=== PATIENT | male | born 1945 | race Caucasian/White ===

== ENCOUNTER 2022-11-10 11:28 | Outpatient (OUT) | payer MEDICARE, SELFPAY ==
[2022-11-10 12:06] LABS: Basophils Absolute Auto 0.1 10^3/uL (0.0-0.1); Basophils Percent Auto 1.1 % (0.2-2.0); Eosinophils Absolute Auto 0.4 10^3/uL (0.0-0.7); Eosinophils Percent Auto 3.4 % (0.9-7.0); Hematocrit 43.6 % (42.0-54.0); Hemoglobin 14.9 g/dL (14.0-18.0); Immature Granulocytes Abs Auto 0.08 10^3/uL (0.00-0.03); Immature Granulocytes Pct Auto 0.7 % (0.0-0.5); Lymphocytes Absolute Auto 1.9 10^3/uL (1.2-3.8); Lymphocytes Percent Auto 16.5 % (20.5-60.0); Mean Corpuscular HGB Conc 34.2 g/dL (29.9-35.2); Mean Corpuscular Hemoglobin 28.5 pg (25.9-34.0); Mean Corpuscular Volume 83.4 fL (80.0-94.0); Mean Platelet Volume 10.4 fL (9.5-13.5); Monocytes Absolute Auto 0.8 10^3/uL (0.3-0.8); Monocytes Percent Auto 6.5 % (1.7-12.0); Neutrophils Absolute Auto 8.5 10^3/uL (1.4-6.5); Neutrophils Percent Auto 71.8 % (43.0-75.0); Platelet Count 353 10^3/uL (150-450); Red Blood Count 5.23 10^6/uL (4.70-6.10); Red Cell Distribution Width 12.8 % (11.0-15.0); White Blood Count 11.8 10^3/uL (4.0-11.0)
[2022-11-10 12:14] LABS: Bacteria Urine NONE SEEN #/HPF (NONE SEEN); Mucus Urine NONE SEEN (NONE SEEN); RBC Urine NONE SEEN #/HPF (0-2); Squamous Epithelial Cell Urine FEW #/LPF (NONE/RARE); WBC Urine NONE SEEN #/HPF (NONE SEEN)
[2022-11-10 12:19] LABS: Creatinine Urine Random 107.97 mg/dL (20.00-300.00); Protein Creatinine Ratio Urine 0.47; Total Protein Urine Random 50.8 mg/dL (<=11.9)
[2022-11-10 12:33] LABS: Albumin Level 3.9 g/dL (3.4-5.0); Anion Gap 17.1; BUN Creatinine Ratio 15.6; Calcium 8.5 mg/dL (8.5-10.1); Chloride 99 mmol/L (98-107); Estimated GFR (African America 37 (>=60); Estimated GFR (Non-African Ame 30 (>=60); Glucose 179 mg/dL (74-106); Magnesium 1.9 mg/dL (1.8-2.4); Phosphorus 3.5 mg/dL (2.6-4.7); Potassium 4.1 mmol/L (3.5-5.1); Sodium 135 mmol/L (136-145); Uric Acid 6.2 mg/dL (3.5-7.2)
[2022-11-11 07:11] LABS: Vitamin D, 25-Hydroxy 22.1 ng/mL (30.0-100.0)
[2022-11-11 12:08] LABS: PTH, Intact 46 pg/mL (15-65)
== END 2022-11-10 11:29 | disposition home or self-care (01) ==
PROVIDERS: PCP Nurse Practitioner Family; Visit Provider Internal Medicine
DX: I12.9 Hypertensive chronic kidney disease with stage 1 through stage 4 chronic kidney disease, or unspecified chronic kidney disease (principal); N18.4 Chronic kidney disease, stage 4 (severe); E11.22 Type 2 diabetes mellitus with diabetic chronic kidney disease; N25.81 Secondary hyperparathyroidism of renal origin; E78.5 Hyperlipidemia, unspecified; N28.89 Other specified disorders of kidney and ureter
CPT/HCPCS: 36415; 80069; 81015; 82306; 82570; 83735; 83970; 84156; 84550; 85025

== ENCOUNTER 2022-12-29 09:00 | Outpatient (OUT) | payer MEDICARE, SELFPAY ==
[2022-12-29 08:29] LABS: Estimated GFR (African America 33 (>=60); Estimated GFR (Non-African Ame 27 (>=60)
== END 2022-12-29 12:00 | disposition home or self-care (01) ==
LOC: MRI 01-12 15:14
PROVIDERS: PCP Nurse Practitioner Family; Visit Provider Urology
DX: N28.89 Other specified disorders of kidney and ureter (principal); N40.0 Benign prostatic hyperplasia without lower urinary tract symptoms
CPT/HCPCS: 36415; 82565

== ENCOUNTER 2023-01-03 12:08 | Outpatient (OUT) | payer MEDICARE, SELFPAY ==
[2023-01-03 14:42] LABS: Prostate Specific Antigen Dx 3.09 ng/mL (<=4.00)
== END 2023-01-03 12:09 | disposition home or self-care (01) ==
LOC: LAB 12:10
PROVIDERS: PCP Nurse Practitioner Family; Visit Provider Urology
DX: N40.0 Benign prostatic hyperplasia without lower urinary tract symptoms (principal)
CPT/HCPCS: 36415; 84153

== ENCOUNTER 2023-01-04 07:40 | Outpatient (OUT) | payer MEDICARE, SELFPAY ==
--- NOTE | 2023-01-04 07:44 | CT_ITS ---
[address] [address] Patient Name: STONEY ALVES MRN: [id number] date: 1945 Sex: M Assigned Patient Location: CT Current Patient Location: CT Accession/Order Number: [id number] Exam Date: 01/04/2023 08:31 Report Date: 01/04/2023 10:52 At the request of: UVALDO WINN Procedure: CT abdomen pelvis wo con EXAMINATION: CT abdomen pelvis wo con HISTORY: Renal Mass N28.89 COMPARISON: No relevant comparison available. TECHNIQUE: Axial, Coronal, and Sagittal images were obtained without and/or with IV contrast as indicated by examination type. Dose reduction techniques were achieved by using automated exposure control and/or adjustment of mA and/or kV according to patient size and/or use of iterative reconstruction technique. FINDINGS: LUNG BASES: Numerous peripherally located blebs and bulla; possibly fibrosis. LIVER: Several slightly rounded hypodensities within the liver simple nonspecific but favoring cysts or hemangiomas. BILIARY: No dilatation or calcification. PANCREAS: No lesion, fluid collection, or abnormal duct dilatation. SPLEEN: No enlargement or focal lesion. ADRENALS: No mass or enlargement. KIDNEYS: 4.9 cm round mass versus complex cyst projecting cephalad from superior pole of right kidney. 1.0 cm 0.6 cm cyst versus mass projecting from mid and inferior aspect of kidney. Left kidney contains a 1.9 cm cyst. BOWEL/MESENTERY: Numerous diverticula involving the sigmoid and distal descending colon; no inflammatory changes. No visible mass, obstruction, or bowel wall thickening. AORTA/VASCULAR: No aneurysm or dissection. RETROPERITONEUM: No mass or adenopathy. LYMPH NODES: No adenopathy. URINARY BLADDER: Mild superficial wall thickening, likely muscular hypertrophy. PELVIC ORGANS: No visible mass. Pelvic organs appropriate for patient age. ABDOMINAL WALL: No mass or hernia. BONES: Multilevel marked degenerative disc disease of lumbar spine. OTHER: Negative. CT/CT abdomen pelvis wo con IMPRESSION: 1.Nonspecific 4.9 cm right renal mass versus complex cyst. Lack of IV contrast on today's study limits evaluation (patient had elevated creatinine level).The most recent study demonstrating this area is a CT Thorax from 06/16/2013, which demonstrates normal appearance of the superior pole of the right kidney. If patient's creatinine level can be returned to normal a CT abdomen without and with IV contrast would be beneficial for further evaluation. If the patient is unable to receive IV contrast then consider MRI of the kidneys without contrast for further evaluation. 2. Additional chronic changes detailed above. Electronically authenticated by: TOLU MILIAN Date: 01/04/2023 10:52
== END 2023-01-04 07:41 | disposition home or self-care (01) ==
LOC: CT 07:40
PROVIDERS: PCP Nurse Practitioner Family; Visit Provider Urology
DX: N28.89 Other specified disorders of kidney and ureter (principal)
CPT/HCPCS: 74176

== ENCOUNTER 2023-01-15 13:37 | Outpatient (OUT) | payer MEDICARE, SELFPAY ==
--- NOTE | 2023-01-15 13:40 | MR_ITS ---
The [address] [address] Patient Name: STONEY ALVES MRN: [id number] date: 1945 Sex: M Assigned Patient Location: MRI Current Patient Location: MRI Accession/Order Number: [id number] Exam Date: 01/15/2023 13:53 Report Date: 01/16/2023 16:50 At the request of: UVALDO WINN Procedure: MR abdomen wo con EXAM: MR abdomen wo con 01/15/2023 COMPARISON STUDY: CT of the abdomen and pelvis without contrast 01/04/2023. CT of the chest 06/16/2013. TECHNIQUE: Coronal T2, axial T1 in and out of phase, axial T2 with and without fat saturation images of the abdomen were obtained. Axial T1 fat-saturated images were obtained. Intravenous contrast was not utilized due to renal insufficiency. HISTORY: Right Renal Mass N28.89 FINDINGS: On the large [id number] T2-weighted images there is incidental note of colonic diverticular disease. Interval development of a mixed T1/mixed T2 signal partially exophytic mass at the upper pole of the right kidney when compared to study from 2013. This measures 4.6 x 4.2 x 4.6 cm. Gallbladder, pancreas, and spleen appear unremarkable as do the adrenal glands. Mild background global atrophic changes of the kidneys from chronic medical renal disease suspected. Bilateral renal cysts are present. Exophytic cyst off the lateral cortex midpole level right kidney for example measures 12 mm. On the same image is an intracortical cyst within the posterior cortex measuring 8 mm. An inferior pole cyst laterally for example measures 8 mm. Hemorrhagic/proteinaceous cyst at the upper pole of the left kidney within the posterior cortex, image 5, series 9 measures 7 mm similar to that seen on prior exam. Multiple midpole cysts are also identified. Dominant midpole cyst posteriorly for example measures 2.1 cm. Inferior pole cyst laterally measures 5 mm. Multiple high T2 signal hepatic cysts are also identified. Subcapsular right hepatic cyst involving the posterior segment seen laterally for example measures 2.0 x 2.0 cm. On the same image is a lobulated right hepatic cyst within the anterior segment measuring 1.8 x 1.8 cm. On the same image is a cyst within the lateral segment left hepatic lobe measuring 13 mm. A medially located subcapsular cyst within the posterior segment right hepatic lobe is also identified more caudally measuring 1.2 x 2.3 cm. MR/MR abdomen wo con IMPRESSION: 1. Mild chronic background global atrophic changes of the kidneys without hydronephrosis. 2. 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 3. Benign-appearing hepatic and bilateral renal cysts. Subcentimeter hemorrhagic/proteinaceous upper pole left renal cyst again noted. 4. Colonic diverticular disease noted incidentally. Electronically authenticated by: KARLA TORRES Date: 01/16/2023 16:50
== END 2023-01-15 13:38 | disposition home or self-care (01) ==
LOC: MRI 13:37
PROVIDERS: PCP Nurse Practitioner Family; Visit Provider Urology
DX: N28.89 Other specified disorders of kidney and ureter (principal)
CPT/HCPCS: 74181

== ENCOUNTER 2024-01-09 13:32 | Emergency (ER) | payer MEDICARE, SELFPAY ==
[2024-01-09 13:48] VITALS: BP 156/77; PULSE 68; TEMP 36.6; O2SAT 99
--- NOTE | 2024-01-09 14:21 | ED.GENADUL1 ---
HPI HPI - General Adult General Chief complaint: Extremity Injury, Upper Stated complaint: UPPER RIGHT EXTREMITY IRRITATION/PAIN Time Seen by Provider: 01/09/24 13:40 Source: patient Mode of arrival: walk-in Limitations: no limitations History of Present Illness HPI narrative: Patient presents to ED complaining of right arm injury. He was lifting a couch over the weekend and he felt a pop in his right bicep area. He said some bruising around the bicep area and mild tenderness. He thinks he may be tore something. No other injury. 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 He does not have an orthopedic doctor to follow with at this time. He does see Dr. Lyons but came to the emergency room for evaluation. Related Data Allergies Allergy/AdvReac Type Severity Reaction Status Date / Time No Known Drug Allergies Allergy Verified 01/09/24 13:54 Opioid HPI Opioid Management Most Recent Opioid Data: No Data to Display Review of Systems ROS Status of ROS 10 or more systems reviewed and unremarkable except as noted in history and below PFSH PFSH Social History Little interest or pleasure in doing things: not at all Feeling down, depressed, or hopeless: not at all Exam Narrative Exam Narrative: General: alert, no acute distress Cardiovascular: regular rate and rhythm, normal peripheral perfusion. Respiratory: Lungs CTA, respirations non labored. Extremities: Ecchymosis in the biceps area on the right upper extremity. 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 Patient is able to flex and extend at the elbow Neurological: oriented x 4, LOC appropriate for age. Constitutional Vital Signs, click to edit/add: Last Vital Signs Temp 97.9 F 01/09/24 13:48 Pulse 68 01/09/24 13:48 Resp 18 01/09/24 13:48 BP 156/77 H 01/09/24 13:48 Pulse Ox 99 01/09/24 13:48 O2 Del Method Room Air 01/09/24 13:48 Course Vital Signs Vital signs: Vital Signs Temperature 97.9 F 01/09/24 13:48 Pulse Rate 68 01/09/24 13:48 Respiratory Rate 18 01/09/24 13:48 Blood Pressure 156/77 H 01/09/24 13:48 Pulse Oximetry 99 01/09/24 13:48 Oxygen Delivery Method Room Air 01/09/24 13:48 Temperature 97.9 F 01/09/24 13:48 Pulse Rate 68 01/09/24 13:48 Respiratory Rate 18 01/09/24 13:48 Blood Pressure 156/77 H 01/09/24 13:48 Pulse Oximetry 99 01/09/24 13:48 Oxygen Delivery Method Room Air 01/09/24 13:48 Medical Decision Making MDM Narrative Medical decision making narrative: Patient will be referred to Dr. Reis, he will be seen at 1230 on Sunday the . Rest the arm until then take Tylenol Motrin for pain. Return to ED if worsening symptoms otherwise follow-up with Ortho Differential Diagnosis Differential Diagnosis: Bicep strain, tendon rupture, bicep tear Discharge Plan Discharge Chief Complaint: Extremity Injury, Upper Clinical Impression: Biceps muscle tear Patient Disposition: Home, Self-Care Time of Disposition Decision: 14:04 Condition: Good Mode of Transportation: Private Vehicle Print Language: Polish Instructions: Tendon Rupture (ED) Referrals: FRANCISCO SAWANT [Primary Care Provider] - 1 week Valentino Reis MD [Physician] - 01/14/24 12:30 pm
== END 2024-01-09 14:21 | disposition home or self-care (01) ==
PROVIDERS: Emergency Provider Emergency Medicine; PCP Nurse Practitioner Family
DX: S46.211A Strain of muscle, fascia and tendon of other parts of biceps, right arm, initial encounter (principal); X50.0XXA Overexertion from strenuous movement or load, initial encounter
CPT/HCPCS: 99281

== ENCOUNTER 2024-02-28 09:20 | Outpatient (OUT) | payer MEDICARE, SELFPAY ==
--- NOTE | 2024-02-28 09:29 | US_ITS ---
The [address] [address] Patient Name: STONEY ALVES MRN: [id number] date: 1945 Sex: M Assigned Patient Location: US Current Patient Location: Accession/Order Number: [id number] Exam Date: 02/28/2024 10:09 Report Date: 02/29/2024 06:41 At the request of: NON-STAFF PHYSICIAN Procedure: US renal bladder EXAMINATION: US renal bladder HISTORY: Right Renal Mass COMPARISON: CT abdomen pelvis 01/04/2023 TECHNIQUE: Ultrasound examination was performed of the kidneys and urinary bladder. FINDINGS: RIGHT KIDNEY: Superior pole 3.7 x 4.1 x 3.9 cm mass. No appreciable internal blood flow on color Doppler. Mild cortical thinning, 1.3 cm in thickness. Color Doppler demonstrates blood flow within the kidney. Kidney: 10.8 x 5.7 x 5.5 cm LEFT KIDNEY: Several simple appearing cysts, largest is 1.6 cm. Mild cortical thinning, 1.1 cm. Color Doppler demonstrates blood flow within the kidney. Kidney: 9.5 x 6.0 x 6.0 cm BLADDER: Prominent prostate protruding into base of bladder. No visible wall thickening, mass, or calculi. Post void residual: 148 mL URETERAL JETS: Visualized bilaterally. US/US renal bladder IMPRESSION: 1. Within superior pole right kidney is a 4.1 cm mass, also seen on prior CT and MRI of the abdomen. While there is no significant/detectable blood flow within the mass on today's study, its appearance is still most suggestive of renal cell carcinoma. 2. Post void residual urine within bladder: 148 mL. Electronically authenticated by: TOLU MILIAN Date: 02/29/2024 06:41
--- OUTSIDE RECORDS SUMMARY | 2024-02-28 09:44 | XMS_ITS | CCD ---
Author Organization [facility] Care Team Providers Care Claim Rep Name Role Phone Dulce Maria Del Castillo Primary Care Provider DULCE MARIA DEL CASTILLO Primary Care Unavailable MEMO BROWN Referring Unavailabl e KIP GIL Attending Unavailable DULCE MARIA DEL CASTILLO Primary Care Unavailable GUANAKITO BAUM Consulting Unavailable JEFFERYMARGE TOLEDOKIP Admitting Unavailable RAMYA NAVARRO Consulting Unavailable VINCE VAZQUEZ Consulting Unavailable Zeferino Wilkerson Jr. Unavailable Darby Zurita Unavailable Joslyn Keating Unavailable Marcy Floyd Unavailable FRANCISCO SAWANT Admitting Unavailable [facility] Primary Care Unava ilable FRANCISCO SAWANT Attending Unavailable Shashank Tejeda Unavailable FRANCISCO SAWANT Primary Care Physician [phone] Christophe WINN Attending Unavailable Christophe WINN Attending Unavailable SHASHANK TEJEDA Referring Unavailable Christophe WINN Attending Unavailable Unavailable Primary Care Provider UnavailMD Moris Lopez Primary Care Provider MD Moris Oro Attending Provider Moris Oro Attending Unavailable Moris Oro Admitting Unavailable Moris Oro Primary Care Unavailable Moris Oro Primary Care Unavailable Kitty Ledbetter Admitting Unavailable Kitty Ledbetter Attending Unavailable MD Moris Oro Primary Care Provider MD Moris Oro Attending Provider [phone] Unavailable Primary Care Provider Unavailabl john WEIGHT CHRISTOPHER Referring Unavailable WEIGHT, CHRISTOPHER Attending Unavailable COPJOSE DANIEL CRUZ P Referring Unavailable WEIGHT, JOSE DANIEL Referring Unavailable WEIGHT, JOSE DANIEL Attending Unavailable GETACHEW CHURCHILL S Attending Unavailable GETACHEW CHURCHILL S Admitting Unavailable WEIGHT, JOSE DANIEL Attending Unavailable WEIGHT, JOSE DANIEL Referring Unavailable Allergies Allergy Classification Reported Allergen(s) Allergy Type Date of Onset Reaction(s) Facility (1 source) No Known Medication Allergies; Translations: [No Known Medication Allergies] Propensity to adverse reactions (disorder) [facility] Repository Medications Current Medications Medication Drug Class(es) Dates Sig (Normalized) Sig (Original) 3 ML semaglutide 1.34 MG/ML Pen Injector [Ozempic] (20 sources) Start: 04-29-2021 Ozempic (1 MG/DOSE) 4 MG/3ML as directed Subcutaneous Patient assisteance through [facility]-- prepared today Apr, Active Ozempic (1 MG/DO SE) 4 MG/3ML as directed Subcutaneous Patient assisteance through [facility]-- prepared today Active Acetaminophen (2 sources) Start: 04-24-2020 acetaminophen (TYLENOL) tablet 650 mg Acetaminophen (T YLENOL) 325 MG CAPS Take by mouth as needed 0 Active 120 actuat albuterol 0.1 mg/actuat / ipratropium bromide 0.02 mg/actuat metered dose inhaler (2 sources) Anticholinergic, beta2-Adrenergic Agonist Start: 05-05-2020 take 20-100 ug by inhalation four times daily albuterol-ipratropium (COMBIVENT RESPIMAT) 20-100 MCG/ACT AERS inhaler Inhale 1 puff into the lungs 4 times daily 1 Inhaler 2 05/05/2020 Active albuterol sulfate HFA 108 (90 Base) MCG/ACT inhaler 2 puff (1 source) Start: 04-24-2020 albuterol sulfate HFA 108 (90 Base) MCG/ACT inhaler 2 puff albuterol sulfate HFA 108 (90 Base) MCG/ACT inhaler 2 puff (1 source) Start: 04-24-2020 albuterol sulfate HFA 108 (90 Base) MCG/ACT inhaler 2 puff amLODIPine 10 mg oral tablet (20 sources) Dihydropyridine Calcium Channel Марина Start: 06-25-2023 End: 06-24-2024 take 10 mg by mouth once daily Amlodipine Active 10 MG PO Daily October 15, 2023 10:58am Start: 05-11-2020 take 1 tablet by christopher th once daily amLODIPine (NORVASC) 5 MG tablet Take 1 tablet by mouth daily 90 tablet 3 05/11/2020 Active Start: 04-24-2020 take 10 mg by mouth once daily 10 mg, Oral, DAILY, First dose on 04/24/20 at 0900 Comment on above: 1 tablet Orally Chidi y for 30 days aspirin 81 mg chewable tablet (20 sources) Platelet Aggregation Inhibitor, Nonsteroidal Anti-inflammatory Drug Start: 04-25-2020 take 81 mg by mouth once daily 81 mg, Oral, DAILY, First dose on 04/25/20 at 0900 Aspirin 81 81 MG 1 tablet Orally Three days a week Not-Taking atenolol 50 mg oral tablet (1 source) beta-Adrenergic Марина Start: 04-25-2020 atenolol (TENORMIN) tablet 50 mg atorvastatin 10 mg oral tablet (20 sources) HMG-CoA Reductase Inhibitor Start: 10-15-2023 take 10 mg by mouth once daily Atorvastatin Active 10 MG PO Daily October 15, 2023 12:00am Start: 04-24-2020 take 10 mg by mouth once daily 10 mg, Oral, DAILY, First dose on 04/24/20 at 0900 atorvastatin (LI PITOR) 10 mg tablet Take by mouth every 24 hours. Active Comment on above: Take by mouth every 24 hours. benzonatate 200 mg oral capsule (2 sources) Non-narcotic Antitussive Start: End: take 1 capsule by mouth three times daily as needed for cough benzonatate (TESSALON) 200 MG capsule Take 1 capsule by mouth 3 times daily as needed for Cough 21 capsule 2 05/05/2020 05/12/2020 Active Start: 04-24-2020 take 200 mg by mouth three times daily as needed for cough 200 mg, Oral, 3 TIMES DAILY PRN, Cough, Starting 04/24/20 at 0110 60 actuat budesonide 0.16 mg/actuat / formoterol fumarate 0.0045 mg/actuat metered dose inhaler (2 sources) Corticosteroid, beta2-Adrenergic Agonist Start: 05-05-2020 take 2 puff(s) by inhalation twice daily budesonide-formoterol (SYMBICORT) 160-4.5 MCG/ACT AERO Inhale 2 puffs into the lungs 2 times daily 1 Inhaler 3 05/05/2020 Active budesonide-for moterol (SYMBICORT) 160-4.5 MCG/ACT inhaler 2 puff (2 sources) Start: 04-28-2020 budesonide-formoterol (SYMBICORT) 160-4.5 MCG/ACT inhaler 2 puff Start: 04-26-2020 End: 04-28-2020 budesonide-formoterol (SYMBI ESTEBAN) 160-4.5 MCG/ACT inhaler 2 puff cholecalciferol 68429 unt/ml oral solution (1 source) Vitamin D Start: 10-15-2023 cholecalciferol (vitamin D3) Active 17236 UNIT PO .qweekly October 15, 2023 12:00am dexamethasone 4 mg oral tablet (2 sources) Corticosteroid Start: 04-24-2020 take 6 mg by mouth once daily 6 mg, Oral, DAILY, First dose on 04/24/20 at 0900 Start: 04-23-2020 End: 04-23-2020 dexamethasone (PF) (DECADRON ) injection 10 mg 12 hr dextromethorphan polistirex 6 mg/ml extended release suspension (3 sources) Uncompetitive Y-acwhmy-J-aspartate Receptor Antagonist, Sigma-1 Agonist Start: 04-24-2020 End: 05-15-2020 take 10 mL by mouth every twelve hours as needed for cough dextromethorphan (DELSYM) 30 MG/5ML extended release liquid Take 10 mLs by mouth every 12 hours as needed for Cough 90 mL 2 05/05/2020 05/15/2020 Active diphenhydrAMINE hydrochloride 50 mg oral capsule (3 sources) Histamine-1 Receptor Antagonist Start: 06-25-2023 take 1 capsule by mouth once daily at bedtime Diphenhydramine Hcl (Nighttime Sleep Aid (Diphen)) 50 mg capsule Active 50 MG PO Daily at bedtime June 25, 2023 1:00am doxazosin 2 mg oral tablet (20 sources) alpha-Adrenergic Марина Start: 05-11-2020 take 1 tablet by mouth once daily doxazosin (CARDURA) 2 MG tablet Take 1 tablet by mouth nightly 90 tablet 3 05/11/2020 Active doxazosin (CARDU RA) 2 mg tablet Take by mouth every 24 hours. Active Comment on above: Take by mouth every 24 hours. doxepin hydrochloride 10 mg oral capsule (3 sources) Tricyclic Antidepressant Start: 07-09-19 take 10 mg by mouth once daily Doxepin Active 10 MG PO Daily July 09, 2023 12:00am doxylamine succinate 25 mg oral tablet (1 source) take 2 tablets by mouth once daily, then take 1 tablet by mouth doxyLAMINE succinate ([facility] SLEEP-AID, DOXYLAMINE,) 25 MG tablet Take 50 mg by mouth nightly 0 Active Flash Glucose Sensor (Freestyle Destiney 2 Sensor) kit (3 sources) Start: 07-06-19 24 Flash Glucose Sensor (Freestyle Destiney 2 Sensor) kit Active EACH .ROUTE .MEDSUPPLY 1 July 06, 2023 12:00am As directed FreeStyle Destiney 2 [place] - (20 sources) Start: 08-05-19 22 FreeStyle Destiney 2 [place] - Test blood Sugar SQ 5 x day for 365 days Dx E11:65 Jul, Active FreeStyle Destiney 2 [place] - Test blood Sugar SQ 5 x day for 365 days Dx E11:65 Active FreeStyle Destiney 2 Sensor - (20 sources) Start: 08-04-2021 FreeStyle Libr e 2 Sensor - as directed in vitro q 14 days for 84 days DX E11.65 Jul, Active FreeStyle Destiney 2 Sensor - as directed in vitro q 14 days for 84 days DX E11.65 Active FREESTYLE DESTINEY 2 SENSOR kit (9 sources) Start: 01-25-2023 FREESTYLE LIBR E 2 SENSOR kit USE DIRECTED EVERY 14 DAYS 01/25/2023 Active Start: 01-25-2023 FREESTYLE LIBR E 2 SENSOR kit USE DIRECTED EVERY 14 DAYS 0 01/25/2023 Active Comment on above: USE DIRECTED EVER Y 14 DAYS glipiZIDE 10 mg oral tablet (2 sources) Sulfonylurea take 1 tablet by mouth twice daily before mealtime glipiZIDE (GLUCOTROL) 10 MG tablet Take 10 mg by mouth 2 times daily (before meals) 0 Active glucagon (rdna) 1 mg injection (1 source) Antihypoglycemic Agent Start: 04-24-19 take 1 mL intravenous route every hour 1 mg, Intramuscular, PRN, Low blood sugar, Blood glucose less than 70 mg/dL and patient NOT ALERT or NPO and does not have IV access., Starting 04/24/20 at 0110 After administration, attempt intravenous access and start D5W at 100 mL/hr. Repeat blood glucose in 15 minutes x2 and notify provider. glucose 0.417 mg/mg oral gel (3 sources) Start: 04-24-19 15 g, Oral, PRN, Low blood sugar, Starting 04/24/20 at 0110 If blood glucose less than 50 mg/dL and patient ALERT and TOLERATING PO, give 2 tubes glucose gel. If blood glucose less than 70 mg/dL and patient ALERT and TOLERATING PO, give 1 tube glucose gel. Repeat blood glucose in 15 minutes. If blood glucose is less than 70 mg/dL, repeat treatment and recheck blood glucose in 15 minutes x2 and notify provider. Start: 04-24-2020 12.5 g, Intrav enous, PRN, Low blood sugar, Blood glucose less than 70 mg/dL and patient NOT ALERT or NPO., Starting 04/24/20 at 0110 If patient does not respond within 5 minutes, repeat dose x1. Start D5W at 100 mL/hour until ordering provider can be reached. Repeat blood glucose in 15 minutes. If blood glucose is less than 70 mg/dL, repeat treatment and recheck blood glucose in 15 minutes x2. If using Glucostabilizer, dose as instructed per system. Start: 04-24-2020 100 mL/hr, Int ravenous, at 100 mL/hr, PRN, Low blood sugar, Starting 04/24/20 at 0110 Start infusion following administration of dextrose 50% or glucagon. 1 ml heparin sodium, porcine 5000 unt/ml prefilled syringe (1 source) Unfractionated Heparin, Anti-coagulant Start: 04-24-2020 inject 1 dose by subcutaneous injection three times daily 5,000 Units, Subcutaneous, EVERY 8 HOURS SCHEDULED (3 times per day), First dose on 04/24/20 at 0600 1 ml hydrALAZINE hydrochloride 20 mg/ml injection (1 source) Arteriolar Vasodilator Start: 04-27-2020 hydrALAZINE (APRESOLINE) injection 10 mg hydroCHLOROthiazide 12.5 mg oral tablet (4 sources) Thiazide Diuretic Start: 06-25-2023 take 12.5 mg by mouth once daily Hydrochlorothiazide Active 12.5 MG PO Daily June 25, 2023 1:00am End: 05-05-2020 take 1 tablet by mouth every twelve hours hydrochlorothiazide (HYDRODIURIL) 25 MG tablet Take 25 mg by mouth every 12 hours. 0 05/05/2020 Discontinued (Stop Taking at Discharge) Tresiba (20 sources) Insulin Analog Start: 12-18-2022 Tresiba SubCut aneous, Daily, Refills(s) 0 Start Date: 12/18/22 Status: Ordered insulin degludec (TRESIBA FLEXTOUCH U-100) 100 unit/mL (3 mL) injection pen Inject 12 Units subcutaneously. Active inject 3 [IU] by sub cutaneous injection once daily Tresiba FlexTouch 100 UNIT/ML 3 u Subcutaneous daily E11.65--titrate to 20 units. PATIENT ASSIST THROUGH [facility] REDUCE VOLUMES HOPEFUL FOR ELIMINATION Active inject 5 [IU] by sub cutaneous injection once daily Tresiba FlexTouch 100 UNIT/ML 5 u Subcutaneous daily E11.65--titrate to 20 units. PATIENT ASSIST THROUGH [facility] Active inject 12 [IU] by arevalo bcutaneous injection once daily Tresiba FlexTouch 100 UNIT/ML 12 u Subcutaneous daily E11.65--titrate to 20 units. PATIENT ASSIST THROUGH [facility] Active Tresiba FlexTouc h 100 UNIT/ML 11 units, may titrate up to 15 units as needed Subcutaneous daily E11.65-- PATIENT ASSIST THROUGH [facility] Active Comment on above: Inject 12 Units subc utaneously. lisinopril 40 mg oral tablet (20 sources) Angiotensin Converting Enzyme Inhibitor Start: 3 End: 4 take 1 tablet by mouth once lisinopril (ZESTRIL) 40 mg tablet Take 1 tablet by mouth every afternoon. 11/12/2022 Active take 1 tablet by christopher th every twelve hours lisinopril (PRINIVIL;ZESTRIL) 20 MG tabl et Take 20 mg by mouth every 12 hours. 0 Active Comment on above: Take 1 tablet by christopher th every afternoon. magnesium hydroxide 80 mg/ml oral suspension (2 sources) Start: 05-04-2020 magnesium hydroxide (MILK OF MAGNESIA) 400 MG/5ML suspension 30 mL Start: 04-24-2020 End: 05-04-2020 take 30 mL by mouth once daily as needed for constipation 30 mL, Oral, DAILY PRN, Constipation, Starting 04/24/20 at 0110 First line therapy for constipation. 100 ml magnesium sulfate 10 mg/ml injection (1 source) Start: 04-24-2020 take 1 mg intravenous route every hour as needed 1 g, Intravenous, at 100 mL/hr, Administ er over 1 Hours, PRN, Other, Per Magnesium IV Replacement Protocol, Starting 04/24/20 at 0110 Mg Lab Replacement Action 1.4-1.6 1 gram IVPB x 2 doses &nb sp; (2 gram Total) 1.0-1.3 1 gram IVPB x 4 doses &nb sp; (4 gram Total) <1.0 CALL PHYSICIAN and &n bsp; 1 gram IVPB x 4 doses (4 gram Total) Infuse at 1 gram/hr Repeat Mag level next AM Protocol not for use in Patients with CrCl<30ml/min metFORMIN hydrochlor masha 1000 mg oral tablet (1 source) B i g u a n i d e take 1 tablet by mouth twice daily at mealtime metformin (GLUCOPHAGE) 1000 MG tablet Ta ke 1,000 mg by mouth 2 times daily (with meals). 0 Active montelukas t 10 mg oral tablet (20 sources) L e u k o t r i e n e R e c e p t o r A n t a g o n i s t Start: 04-24-2020 End: 10-15-2023 take 1 tablet by mouth once montelukast (SINGULAIR) 10 mg tablet Doni e 1 tablet by mouth every afternoon. 02/01/2023 Active Comment on above: Take 1 tablet by mouth every afternoon. nystatin 813866 unt/ml oral suspension (3 sources) P o l y e n e A n t i f u n g a l Start: 05-05-2020 End: 05-15-2020 take 5 mL by mouth four times daily nystatin (MYCOSTATIN) 155775 UNIT/ML blaise pension Take 5 mLs by mouth 4 times daily for 10 days 200 mL 0 05/05/2020 05/15/2020 Active Start: 05-04-2020 nystatin (MYCO STATIN) 655830 UNIT/ML suspension 500,000 Units omeprazole 40 mg delayed release oral capsule (10 sources) Proton Pump Inhibitor Start: 12-18-2022 omeprazo le (PRILOSEC) 40 mg capsule Take by mouth. 12/18/2022 Active take 1 capsule by mouth once adan ly omeprazole (PRILOSEC) 20 MG delayed release capsule Take 20 mg by mouth daily 0 Active Comment on above: Take by mouth. One Touch Glucometer (20 sources) Start: 06-28-2020 One Touch Glucometer To use with One touch basic strips Daily E11.65 Jun, Active Oxygen (1 source) OXYGEN Inhale in to the lungs 2-4 liters 0 Active ozempic (1 mg/dose) 4 mg/3ml solution pen-injector (5 sources) Ozempic (1 MG/DO SE) 4 MG/3ML as directed Subcutaneous Patient assistance through [facility]-- prepared today Active Ozempic (1 MG/DO SE) 4 MG/3ML as directed Subcutaneous Patient assisteance through [facility]-- prepared today Active Potassium Chloride (1 source) Start: 04-24-2020 potassium chloride (KLOR-CON M) extended release tablet 40 mEq pravastatin sodium 20 mg oral tablet (2 sources) HMG-CoA Reductase Inhibitor take 1 tablet by mouth once daily pravastatin (PRAVACHOL) 20 MG tablet Take 20 mg by mouth daily. 0 Active Promethazine (1 source) Phenothiazine Start: 04-24-2020 promethazine (PHENERGAN) tablet 12.5 mg Ozempic (9 sources) Start: 12-18-2022 Ozempic SubCutaneous, qWeek, Refill(s) 0 Start Date: 12/18/22 Status: Ordered Ozempic (0.25 or 0.5 MG/DOSE) 2 MG/1.5ML 0.5 mg Subcutaneous Once a week Increased dose Active Semaglutide (5 sources) Start: 06-06-2023 inject 1 mg by subcutaneous injection every week Semaglutide (Ozempic) 1 mg/dose (4 mg/3 mL) pen injector Active 1 MG SUBCUT every week 07 20June 06, 2023 1:00am Start: 06-06-2023 inject 1 mg by subcu taneous injection every week Semaglutide (Ozempic) 1 mg/dose (4 mg/3 mL) pen injector Active 1 MG SUBCUT every week 07 20June 06, 2023 12:00am semaglutide (OZEMPIC SUBCUTA NEOUS) (9 sources) semaglutide (OZE MPIC SUBCUTANEOUS) Inject subcutaneously. Active semaglutide (OZE MPIC SUBCUTANEOUS) Inject subcutaneously. 0 Active Comment on above: Inject subcutaneousl y. sennosides, assisted 8.6 mg oral tablet (1 source) Start: 04-28-2020 senna (SENOKOT) tablet 8.6 mg tamsulosin hydrochloride 0.4 mg oral capsule (20 sources) alpha-Adrenergic Марина Start: 01-25-2023 End: 10-15-2023 tamsulosin (FLOMAX) 0.4 mg TAKE 1 CAPSULE BY MOUTH 30 MINUTES AFTER THE SAME MEAL EACH DAY ONCE A DAY 01/25/2023 Active Start: 12-15-2022 tamsulosin 0.4 mg Cap Refills(s) 0 Start Date: 12/15/22 Status: Ordered Start: 04-24-2020 End: 05-05-2020 take 0.4 mg by mouth once daily 0.4 mg, Oral, DAILY, F irst dose on 04/24/20 at 0900 Do not crush or break. Comment on above: TAKE 1 CAPSULE BY MO [facility] 30 MINUTES AFTER THE SAME MEAL EACH DAY ONCE A DAY urea (URE-NA) packet 15 g (1 source) Start: 05-04-2020 End: 05-07-2020 urea (URE-NA) packet 15 g Vitamin D3 (2 sources) Start: 12-18-2022 Vitamin D3 Refills(s) 0 Start Date: 12/18/22 Status: Ordered zolpidem tartrate 5 mg oral tablet (1 source) gamma-Aminobutyric Acid-ergic Agonist Start: 04-25-2020 zolpidem (AMBIEN) tablet 5 mg Completed/Discontinued Medications Medication Drug Class(es) Dates Sig (Normalized) Sig (Original) azithromycin (ZITHROMAX) 500 mg in D5W 250ml addavial (1 source) Start: 04-23-2020 End: 04-24-2020 azithromycin (ZITHROMAX) 500 mg in D5W 250ml addavial calcium chloride 0.0014 meq/ml / potassium chloride 0.004 meq/ml / sodium chloride 0.103 meq/ml / sodium lactate 0.028 meq/ml injectable solution (1 source) Start: 04-24-2020 End: 04-24-2020 lactated ringers infusion cefTRIAXone (ROCEPHIN) 1 g IVPB in 50 mL D5W minibag (2 sources) Start: 04-26-2020 End: 04-28-2020 cefTRIAXone (ROCEPHIN) 1 g IVPB in 50 mL D5W minibag Start: 04-23-2020 End: 04-24-2020 cefTRIAXone (ROCEPHIN) 1 g I VPB in 50 mL D5W minibag codeine phosphate 2 mg/ml / phenylephrine hydrochloride 1 mg/ml / promethazine hydrochloride 1.25 mg/ml oral solution (1 source) Opioid Agonist, Phenothiazine, alpha-1 Adrenergic Agonist Start: 04-15-2012 End: 04-24-2020 inwfflvnt-izrobnlwcuhv-sttre ne (PHENERGAN VC W/CODEINE) 5-6.25-10 MG/5ML SYRP syrup Take 5 mLs by mouth every 4 hours as needed. 120 mL 0 04/15/2012 04/24/2020 Discontinued (LIST CLEANUP) ergocalciferol 1.25 mg oral capsule (3 sources) Provitamin D2 Compound Start: 06-25-2023 End: 10-15-2023 take 1250 ug by mouth every week Ergocalciferol (Vitamin D2) Discontinued 1250 MCG PO every week June 25, 2023 1:00am October 15, 2023 10:59am furosemide 20 mg oral tablet (1 source) Loop Diuretic Start: 04-29-2020 End: 05-05-2020 furosemide (LASIX) tablet 20 mg Insulin Degludec (Tresiba Flextouch U-100) 100 unit/mL (3 mL) insulin pen (6 sources) Start: 07-09-2023 End: 10-15-2023 inject 3 [IU] by subcutaneous injection once daily Insulin Degludec (Tresiba Flextouch U-100) 100 unit/mL (3 mL) insulin pen Discontinued 3 UNIT SUBCUT Daily July 09, 2023 11:14am October 15, 2023 11:01am FreeTextSi u Subcutaneous daily; Note: Source Status: [id number].--titrate to 20 units. PATIENT ASSIST THROUGH [facility] REDUCE VOLUMES HOPEFUL FOR ELIMINATION; Provider: Yudith Hartman Start: 07-09-2023 inject 3 [IU] by sub cutaneous injection once daily Insulin Degludec (Tresiba Flextouch U-100) 100 unit/mL (3 mL) insulin pen Active 3 UNIT SUBCUT Daily July 09, 2023 11:14am FreeTextSi u Subcutaneous daily; Note: Source Status: [id number]--titrate to 20 units. PATIENT ASSIST THROUGH [facility] REDUCE VOLUMES HOPEFUL FOR ELIMINATION; Provider: Yudith Hartman Start: 06-25-2023 End: 07-09-2023 inject 3 [IU] by subcutaneous injection once daily Insulin Degludec (Tresiba Flextouch U-100) 100 unit/mL (3 mL) insulin pen Discontinued UNIT SUBCUT June 25, 2023 1:00am July 09, 2023 11:16am FreeTextSi u Subcutaneous daily; Note: Source Status: [id number]--titrate to 20 units. PATIENT ASSIST THROUGH [facility] REDUCE VOLUMES HOPEFUL FOR ELIMINATION; Provider: Yudith Hartman insulin glargine 100 unt/ml injectable solution (6 sources) Insulin Analog Start: 05-05-2020 End: 05-05-2020 insulin glargine (LANTUS) 100 UNIT/ML injection vial Inject 20 Units into the skin nightly 1 vial 3 05/05/2020 05/05/2020 Discontinued (Stop Taking at Discharge) Start: 05-03-2020 insulin glargi ne (LANTUS) injection vial 20 Units Start: 05-01-2020 End: 05-03-2020 insulin glargine (LANTUS) in jection vial 15 Units Start: 04-29-2020 End: 05-01-2020 insulin glargine (LANTUS) in jection vial 10 Units Start: 04-25-2020 End: 04-28-2020 insulin glargine (LANTUS) in jection vial 15 Units Start: 04-24-2020 End: 04-25-2020 insulin glargine (LANTUS) in jection vial 10 Units insulin lispro 100 unt/ml injectable solution (7 sources) Insulin Analog Start: 05-05-2020 End: 05-05-2020 insulin lispro (HUMALOG) 100 UNIT/ML injection vial Inject 1 Units into the skin 3 times daily (before meals) 151-200-----3 units 201-250-----5 units 251-300-----8 301-350-----12 351-400-----15 1 vial 3 05/05/2020 05/05/2020 Discontinued (REORDER) Start: 04-24-2020 End: 05-03-2020 HUMALOG 100 UNIT/ML injectio n vial Inject 1 Units into the skin 3 times daily (before meals) 151-200-----3 units 201-250-----5 units 251-300-----8 301-350-----12 351-400-----15 1 vial 3 05/05/2020 Active Start: 04-24-2020 End: 05-03-2020 0-6 Units, Subcutaneous, NIG HTLY, First dose on 04/24/20 at 0130 If continuous tube feedings/TPN/NPO, give correction dose based on result, no reduction in dose. If eating or bolus tube feeding: Medium Dose Corrective Algorithm Glucose: Dose: If <139 & nbsp; No Insulin 140-199 &nb sp; 1 Unit 200-249 2 Units 250-299 &nbsp ; 3 Units 300-349 &nbsp ; 4 Units 350-400 &nbsp ; 5 Units Above 400 6 Units Magnesium (20 sources) Magnesium for [place] Not-Taking Magnesium for [place] Active meloxicam (1 source) Nonsteroidal Anti-inflammatory Drug End: 05-05-2020 MELOXICAM 7.5 mg by Does not apply route 2 times daily. 0 05/05/2020 Discontinued (Stop Taking at Discharge) 1000 ml sodium chloride 9 mg/ml injection (7 sources) Start: 04-25-2020 0.9 % sodium c hloride bolus Start: 04-24-2020 End: 04-28-2020 0.9 % sodium chloride infusi on Start: 04-24-2020 10 mL, Intrave nous, EVERY 12 HOURS SCHEDULED (2 times per day), First dose on 04/24/20 at 0900 Start: 04-24-2020 take 10 mL intraveno us route once as needed 10 mL, Intravenous, PRN, Line Care, After every IV line use, Starting 04/24/20 at 0110 Problems Active Problems Problem Classification Problem Date Documented Date Episodic/Chronic Acute and unspecified renal failure (3 sources) Acute injury of kidney; Translations: [NAOMIE (acute kidney injury)] Onset: 1 04-24-2020 Administrative/socia l admission (11 sources) Dietary counseling and surveillance; Translations: [Patient encounter status] Onset: 1 Resolved: 2 Episodic Cancer of kidney and renal pelvis (8 sources) Malignant neoplasm of unspecified kidney, except renal pelvis; Translations: [Primary malignant neoplasm of kidney] Chronic Chronic kidney disease (20 sources) Chronic kidney disease; Translations: [Chronic kidney disease, unspecified] Onset: 1 Resolved: 2 Chronic Chronic obstructive pulmonary disease and bronchiectasis (3 sources) Chronic obstructive lung disease; Translations: [COPD (chronic obstructive pulmonary disease)] Onset: 1 04-24-2020 Chronic Diabetes mellitus with complications (20 sources) Hyperglycemia due to type 2 diabetes mellitus; Translations: [Type 2 diabetes mellitus with hyperglycemia] Onset: 1 Resolved: 2 Chronic Diabetes mellitus without complication (6 sources) Diabetes mellitus; Translations: [DM (diabetes mellitus)] Onset: 1 04-24-2020 Chronic Disorders of lipid metabolism (20 sources) Hyperlipidemia; Translations: [Hyperlipidemia, unspecified] Onset: 1 Resolved: 2 04-24-2020 Chronic Essential hypertension (20 sources) Hypertensive disorder; Translations: [Essential (primary) hypertension] Onset: 1 Resolved: 2 04-24-2020 Chronic Hyperplasia of prostate (8 sources) Benign prostatic hyperplasia; Translations: [Benign prostatic hypertrophy without outflow obstruction] Onset: 1 04-24-2020 Chronic Hypertension with complications and secondary hypertension (20 sources) Chronic kidney disease due to hypertension; Translations: [Hypertensive chronic kidney disease with stage 1 through stage 4 chronic kidney disease, or unspecified chronic kidney disease] Chronic Mycoses (20 sources) Candidiasis of mouth; Translations: [Onychomycosis] Onset: 1 05-04-2020 Episodic Nutritional deficiencies (20 sources) Vitamin D deficiency; Translations: [Vitamin D deficiency, unspecified] Onset: 1 Resolved: 3 Chronic Other acquired deformities (20 sources) Deformity of foot; Translations: [Unspecified acquired deformity of unspecified lower leg] 07-06-2023 Episodic Other acquired deformities (6 sources) Unspecified acquired deformity of unspecified lower leg; Translations: [Unspecified deformity of ankle and foot, acquired] Episodic Other aftercare (20 sources) Long-term current use of insulin; Translations: [nursing home (current) use of insulin] 07-06-2023 Episodic Other aftercare (9 sources) nursing home (current) use of insulin; Translations: [nursing home current use of insulin Z79.4] Onset: 1 Resolved: 2 Episodic Other diseases of kidney and ureters (20 sources) Secondary hyperparathyroidism; Translations: [Secondary hyperparathyroidism of renal origin] 12-15-2022 Chronic Other diseases of kidney and ureters (5 sources) Secondary hyperparathyroidism of renal origin; Translations: [Secondary hyperparathyroidism (of renal origin)] Chronic Other diseases of kidney and ureters (16 sources) Disorder of kidney and/or ureter; Translations: [Other specified disorders of kidney and ureter] Onset: 3 Chronic Other diseases of kidney and ureters (7 sources) Other specified disorders of kidney and ureter; Translations: [Unspecified disorder of kidney and ureter] Onset: 3 Chronic Other diseases of kidney and ureters (11 sources) Renal mass; Translations: [Other specified disorders of kidney and ureter] 12-15-2022 Chronic Other nutritional; endocrine; and metabolic disorders (20 sources) Obesity; Translations: [Obesity, unspecified] Chronic Other nutritional; endocrine; and metabolic disorders (6 sources) Body mass index (BMI) 27.0-27.9, adult; Translations: [Body Mass Index 27.0-27.9, adult] Onset: 2 Resolved: 2 Episodic Other nutritional; endocrine; and metabolic disorders (2 sources) Body mass index (BMI) 28.0-28.9, adult Episodic Other nutritional; endocrine; and metabolic disorders (3 sources) Hyperuricemia without signs of inflammatory arthritis and tophaceous disease; Translations: [Other abnormal blood chemistry] Episodic Other nutritional; endocrine; and metabolic disorders (3 sources) Hyperuricemia; Translations: [Hyperuricemia without signs of inflammatory arthritis and tophaceous disease] 06-25-2023 Episodic Other nutritional; endocrine; and metabolic disorders (3 sources) Overweight in adulthood with body mass index of 25 or more but less than 30; Translations: [Body mass index (BMI) 27.0-27.9, adult] 07-06-2023 Episodic Other screening for suspected conditions (not mental disorders or infectious disease) (4 sources) Patient encounter status; Translations: [Encounter for screening for other disorder] 02-06-2023 Episodic Pneumonia (except that caused by tuberculosis or sexually transmitted disease) (3 sources) Pneumonia due to other virus not elsewhere classified; Translations: [Pneumonia due to COVID-19 virus] Onset: 1 04-24-2020 Episodic Unclassified (1 source) Protein level - finding; Translations: [Elevated troponin] Past or Other Problems Problem Classification Problem Date Documented Da te Episodic/Chronic Other nutritional; endocrine; and metabolic disorders (1 source) Overweight; Translations: [Overweight (BMI 25.0-29.9) E66.3] Onset: 01-12-2021 Resolved: 01-12-2021 Episodic Other nutritional; endocrine; and metabolic disorders (1 source) Body mass index (BMI) 26.0-26.9, adult Onset: 11-10-2021 Resolved: 11-10-2021 Episodic Results Test Name Value Interpretation Reference Range Facility Comprehensive metabolic 2000 panelon 02-21-2024 Albumin [Mass/Vol] 4.5 g/dL Normal 3.9-4.9 [facility] Comment on above: Order Comment: Speci men Type: BLOOD SPECIMENOrdering Facility: [facility] Address: [address] [place] [address] Performed By: #### 2 4323-8 ####[facility] LABCLIA [id number] [place] [address] [place] ALP [Catalytic activity/Vol] 80 U/L Normal 38-113 [facility] Comment on above: Order Comment: Speci men Type: BLOOD SPECIMENOrdering Facility: [facility] Address: [address] [place] [address] Performed By: #### 2 4323-8 ####[facility] [id number] [place] [address] [place] ALT [Catalytic activity/Vol] 14 U/L Normal 10-54 [facility] Comment on above: Order Comment: Speci men Type: BLOOD SPECIMENOrdering Facility: [facility] Address: [address] [place] [address] Performed By: #### 2 4323-8 ####[facility] [id number] [place] [address] [place] Anion gap [Moles/Vol] 15 mmol/L Normal 8-15 [facility] Comment on above: Order Comment: Speci men Type: BLOOD SPECIMENOrdering Facility: [facility] Address: [address] [place] [address] Performed By: #### 2 4323-8 ####[facility] [id number] [place] [address] [place] AST [Catalytic activity/Vol] 17 U/L Normal 14-40 [facility] Comment on above: Order Comment: Speci men Type: BLOOD SPECIMENOrdering Facility: [facility] Address: [address] [place], [place] [address] Performed By: #### 2 4323-8 ####[facility] [id number] [place] [address] [place] Bilirubin [Mass/Vol] 0.2 mg/dL Normal 0.2-1.3 [facility] Comment on above: Order Comment: Speci men Type: BLOOD SPECIMENOrdering Facility: [facility] Address: [address] [place] [address] Performed By: #### 2 4323-8 ####[facility] [id number] [place] [address] [place] Calcium [Mass/Vol] 8.9 mg/dL Normal 8.5-10.2 [facility] Comment on above: Order Comment: Speci men Type: BLOOD SPECIMENOrdering Facility: [facility] Address: [address] [place] [address] Performed By: #### 2 4323-8 ####[facility] [id number] [place] [address] [place] Chloride [Moles/Vol] 98 mmol/L Normal 98-107 [facility] Comment on above: Order Comment: Speci men Type: BLOOD SPECIMENOrdering Facility: [facility] Address: [address] [place] [address] Performed By: #### 2 4323-8 ####[facility] [id number] [place] [id number] [place] CO2 [Moles/Vol] 24 mmol/L Normal 22-30 [facility] Comment on above: Order Comment: Speci men Type: BLOOD SPECIMENOrdering Facility: [facility] Address: [address] [place], [place] [id number] Performed By: #### 2 4323-8 ####[facility] [id number] [place] [address] [place] Creatinine [Mass/Vol] 2.84 mg/dL High 0.73-1.22 [facility] Comment on above: Order Comment: Soha roberto Type: BLOOD SPECIMENOrdering Facility: [facility] Address: [address] [place] [address] Performed By: #### 2 4323-8 ####[facility] LABIA [id number] [place] [address] [place] Creatinine and Glomerular filtration rate.predicted panel (S/P/Bld) 22 mL/min/1.73m??? Low >=60 [facility] Comment on above: Order Comment: Soha roberto Type: BLOOD SPECIMENOrdering Facility: [facility] Address: [address] [place] [address] Result Comment: Ning mated Glomerular Filtration Rate (eGFR) is calculated using the 2020 CKD-EPI creatinine equation. This equation utilizes serum creatinine, sex, and age as parameters. The creatinine assay has traceable calibration to isotope dilution-mass spectrometry. Refer to KDIGO guidelines for clinical interpretation. In patients with unstable renal function, e.g. those with acute kidney injury, the eGFR may not accurately reflect actual GFR. Performed By: #### 2 4323-8 ####[facility] [id number] [place] [address] [place] Glucose [Mass/Vol] 123 mg/dL High 74-99 [facility] Comment on above: Order Comment: Soha roberto Type: BLOOD SPECIMENOrdering Facility: [facility] Address: [address] [place] [address] Result Comment: The [place] [employer] (ADA) provides guidance for cutoff values for fasting glucose and random glucose. The ADA defines fasting as no caloric intake for at least 8 hours. Fasting plasma glucose results between 100 to 125 mg/dL indicate increased risk for diabetes (prediabetes). Fasting plasma glucose results greater than or equal to 126 mg/dL meet the criteria for diagnosis of diabetes. In the absence of unequivocal hyperglycemia, results should be confirmed by repeat testing. In a patient with classic symptoms of hyperglycemia or hyperglycemic crisis, random plasma glucose results greater than or equal to 200 mg/dL meet the criteria for diagnosis of diabetes. Reference: Standards of Medical Care in Diabetes 2016, [place] [employer]. Diabetes Care. 2016.39(Suppl 1). Performed By: #### 2 4323-8 ####[facility] [id number] [address] [address] [place] Potassium [Moles/Vol] 4.2 mmol/L Normal 3.7-5.1 [facility] Comment on above: Order Comment: Speci men Type: BLOOD SPECIMENOrdering Facility: [facility] Address: [address] [place] [address] Performed By: #### 2 4323-8 ####[facility]IA [id number] [place] [address] [place] Protein [Mass/Vol] 7.0 g/dL Normal 6.3-8.0 [facility] Comment on above: Order Comment: Speci men Type: BLOOD SPECIMENOrdering Facility: [facility] Address: [address] [place], [place] [address] Performed By: #### 2 432-8 ####[facility]IA [id number] [place] [address] [place] Sodium [Moles/Vol] 137 mmol/L Normal 136-144 [facility] Comment on above: Order Comment: Speci men Type: BLOOD SPECIMENOrdering Facility: [facility] Address: [address] [place] [address] Performed By: #### 2 4323-8 ####[facility] [id number] [place] [id number] [place] Urea nitrogen [Mass/Vol] 44 mg/dL High 9-24 [facility] Comment on above: Order Comment: Speci men Type: BLOOD SPECIMENOrdering Facility: [facility] Address: [address] [place] [address] Performed By: #### 2 4323-8 ####[facility]CL[facility] [id number] [place] [address] [place] URINALYSIS, REFLEX MICROSCOP ICon 02-21-2024 Bilirubin Ql (U) Negative Negative [facility] Clarity (Unsp spec) Clear Clear [facility] Color (U) Yellow Yellow [facility] Glucose Test strip (U) [Mass/Vol] Negative Negative [facility] Hemoglobin Ql (U) Negative Negative [facility] Interpretation and review of laboratory results Abnormal [facility] Ketones Ql (U) Trace Abnormal Negative [facility] Leukocyte esterase Test strip Ql (U) Negative Negative [facility] Nitrite Ql (U) Negative Negative [facility] pH (U) 5.5 [pH] NINF - 8.5 [facility] Protein (U) [Mass/Vol] Trace Abnormal Negative [facility] Specific gravity (U) [Rel density] 1.018 1.005 - 1.030 [facility] Urobilinogen Ql (U) 1.0 EU/dL 0.2-1.0 EU/dL [facility] Bilirubin Ql (U) Negative Normal Negative [facility] Comment on above: Order Comment: Speci men Type: URINE SPECIMENOrdering Facility: [facility] Address: [address] [place] [address] Performed By: #### L [id number] ####[facility] [id number] [place] [address] [place] Clarity (Unsp spec) Clear Normal Clear [facility] Comment on above: Order Comment: Speci men Type: URINE SPECIMENOrdering Facility: [facility] Address: [address] [place] [address] Performed By: #### L [id number] ####[facility]IA [id number] [place] [address] [place] Color (U) Yellow Normal Yellow [facility] Comment on above: Order Comment: Speci men Type: URINE SPECIMENOrdering Facility: [facility] Address: [address] [place] [address] Performed By: #### L [id number] ####[facility]CL[facility] [id number] [place] [address] [place] Glucose Test strip (U) [Mass/Vol] Negative Normal Negative [facility] Comment on above: Order Comment: Speci men Type: URINE SPECIMENOrdering Facility: [facility] Address: [address] [place] [address] Performed By: #### L [id number] ####[facility] [id number] [place] [address] [place] Hemoglobin Ql (U) Negative Normal Negative [facility] Comment on above: Order Comment: Speci men Type: URINE SPECIMENOrdering Facility: [facility] Address: [address] [place] [address] Performed By: #### L [id number] ####[facility] [id number] [place] [address] [place] Ketones Ql (U) Trace Abnormal Negative [facility] Comment on above: Order Comment: Speci men Type: URINE SPECIMENOrdering Facility: [facility] Address: [address] [place] [address] Performed By: #### L [id number] ####[facility] [id number] [place] [address] [place] Leukocyte esterase Test strip Ql (U) Negative Normal Negative [facility] Comment on above: Order Comment: Speci men Type: URINE SPECIMENOrdering Facility: [facility] Address: [address] [place] [address] Performed By: #### L [id number] ####[facility] [id number] [place] [address] [place] Nitrite Ql (U) Negative Normal Negative [facility] Comment on above: Order Comment: Speci men Type: URINE SPECIMENOrdering Facility: [facility] Address: [address] [place] [address] Performed By: #### L [id number] ####[facility] [id number] [place] [address] [place] pH (U) 5.5 [pH] Normal <8.5 [facility] Comment on above: Order Comment: Speci men Type: URINE SPECIMENOrdering Facility: [facility] Address: [address] [place] [address] Performed By: #### L [id number] ####[facility] [id number] [place] [address] [place] Protein (U) [Mass/Vol] Trace Abnormal Negative [facility] Comment on above: Order Comment: Speci men Type: URINE SPECIMENOrdering Facility: [facility] Address: [address] [place] [address] Performed By: #### L [id number] ####[facility]IA [id number] [place] [address] [place] Specific gravity (U) [Rel density] 1.018 Normal 1.005-1.030 [facility] Comment on above: Order Comment: Speci men Type: URINE SPECIMENOrdering Facility: [facility] Address: [address] [place] [address] Performed By: #### L [id number] ####[facility]IA [id number] [place] [address] [place] Urobilinogen Ql (U) 1.0 EU/dL Normal 0.2-1.0 EU/dL [facility] Comment on above: Order Comment: Speci men Type: URINE SPECIMENOrdering Facility: [facility] Address: [address] [place] [address] Performed By: #### L [id number] ####[facility]IA [id number] [place] [address] [place] No Panel Informationon 07-08 Bedside Glucose 130 [facility] CNOVon 06-21-2023 CNOV Office Visit (UROLMN ) JOURDAN AREVALO ([id number]) 1945 M Date Time Provider Department 06/21/23 3:30 PM JOSE DANIEL RENEE During your visit today, we recorded the following information about you: Jose Daniel Renee MD 07/24/2023 9:10 PM Signed PATIENT: Jourdan Arevalo [id number] 06/21/2023 This clinic note was copied and updated from previous note from 03/20/2023 Chief Complaint: Follow up for renal mass History of Present Illness: Jourdan Arevalo is a very pleasant 77 year old male who presents with a history of right renal mass. Solid right renal mass measuring 4.[address] A/P in the right upper pole of the kidney. Patient also has 0.6 cm-1 cm cyst in the left kidney. It was noted in outside note that the patient has been unable to get an MRI done due to creatinine levels. Suggested patient discontinue caffeine use to aid with urinary problems. Patient is s/p kidney biopsy on 02/26/23. Pathology revealed predominantly benign renal parenchyma. Copied from outside note 12/18/22 Interval Hx: The patient is visiting today to review results of renal US IMPRESSION: 4.2 CM RIGHT UPPER POLE RENAL NEOPLASM, NOT SIGNIFICANTLY CHANGED BY SIZE FROM AVAILABLE PRIORS. NO HYDRONEPHROSIS. Physical Exam: There were no vitals taken for this visit. General: Alert, no acute distress, oriented Lungs: No respiratory distress or pursed lip breathing Psych: Affect and mood normal Abdomen: There is no height or weight on file to calculate BMI. Labs and Pathology: Pathology 02/26/23 FINAL DIAGNOSIS A. Kidney, right mass, core biopsy: - Focal renal cell proliferation with predominantly benign renal parenchyma, favor papillary renal cell carcinoma - see Comment. No results found for: [facility] 12/29/22 I personally reviewed all applicable laboratory and pathology data reviewed with patient Significant for renal mass Imaging: US KIDNEY/BLADDER 06/21/2023 IMPRESSION: 4.2 CM RIGHT UPPER POLE RENAL NEOPLASM, NOT SIGNIFICANTLY CHANGED BY SIZE FROM AVAILABLE PRIORS. NO HYDRONEPHROSIS. CT abd/pel 02/22/23 MRI abdomen 01/19/2023 I personally viewed all applicable imaging and interpreted them and went over the results with the patient. Assessment: 4.6cm Right Renal mass with biopsy performed on 02/26/23 showing predominantly benign renal parenchyma,favor papillary renal cell carcinoma Plan: Follow up with a repeat renal ultrasound in 9 months with a basic metabolic panel but they want to get that done locally and then follow-up with us. By signing my name below, I, Arsalan Joselo, attest that this documentation has been prepared under the direction and in the presence of Dr.Christopher Daysi Renee MD. Electronically Signed: rock Mason, June 21, 2023 3:33 PM I agree with the Chief Complaint, ROS, and Past Histories independently gathered by the clinical account support specialist including scribe and or medical student and or RENEE and or resident or fellow and the remaining scribed note accurately describes my personal service to the patient. Jose Daniel Renee MD, MS [facility] Allergies As of Date: 06/21/2023 (No Known Allergies) Date Reviewed: 06/21/2023 Reviewed by: Ewa Rose MA - Fully Assessed Reason for Visit: Follow Up [171] Primary Visit Diagnosis:Renal mass [N28.89] Other Visit Diagnoses:Type 2 diabetes mellitus with stage 3 chronic kidney disease, 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, unspecified whether stage 3a or 3b CKD (HCC) [E11.22, N18.30] Stage 3b chronic kidney disease (HCC) [N18.32] Prescriptions as of 07/24/2023 - amLODIPine (NORVASC) 10 mg tablet 1 tablet Orally Daily for 30 days - atorvastatin (LIPITOR) 10 mg tablet Take by mouth every 24 hours. - omeprazole (PRILOSEC) 40 mg capsule Take by mouth. - doxazosin (CARDURA) 2 mg tablet Take by mouth every 24 hours. - tamsulosin (FLOMAX) 0.4 mg TAKE 1 CAPSULE BY MOUTH 30 MINUTES AFTER THE SAME MEAL EACH DAY ONCE A DAY - montelukast (SINGULAIR) 10 mg tablet Take 1 tablet by mouth every afternoon. - lisinopril (ZESTRIL) 40 mg tablet Take 1 tablet by mouth every afternoon. - insulin degludec (TRESIBA FLEXTOUCH U-100) 100 unit/mL (3 mL) injection pen Inject 12 Units subcutaneously. - FREESTYLE DESTINEY 2 SENSOR kit USE DIRECTED EVERY 14 DAYS - semaglutide (OZEMPIC SUBCUTANEOUS) Inject subcutaneously. Problem List As Of Date 06/21/2023 Noted Resolved Type 2 diabetes mellitus with stage 3 chronic k*03/04/2023 Stage 3b chronic kidney disease (HCC) [N18.32] 03/04/2023 Encounter Status:Closed by JOSE DANIEL RENEE on 07/24/23 Normal [facility] URINALYSIS, REFLEX MICROSCOP ICon 06-21-2023 Bilirubin Ql (U) Negative Negative [facility] Clarity (Unsp spec) Clear Clear [facility] Color (U) Yellow Yellow [facility] Glucose Test strip (U) [Mass/Vol] Negative Trace, Negative [facility] Hemoglobin Ql (U) Negative Negative, Trace [facility] Ketones Ql (U) Negative Negative, Trace [facility] Leukocyte esterase Test strip Ql (U) Negative Negative, 25 Bne/uL [facility] Nitrite Ql (U) Negative Negative [facility] pH (U) 5.5 [pH] 5.0 - 8.0 [facility] Protein (U) [Mass/Vol] 1+ Abnormal Trace, Negative [facility] Specific gravity (U) [Rel density] 1.023 1.005 - 1.030 [facility] Urobilinogen Ql (U) 1+ Abnormal Normal [facility] Bilirubin Ql (U) Negative Normal Negative [facility] Comment on above: Order Comment: Speci men Type: URINE SPECIMENOrdering Facility: [facility] Address: [address] [place] [address] Performed By: #### L [id number] ####[facility]CL[facility] [id number] [facility] [id number] [address] [place] Clarity (Unsp spec) Clear Normal Clear [facility] Comment on above: Order Comment: Speci men Type: URINE SPECIMENOrdering Facility: [facility] Address: [address] [place] [address] Performed By: #### L [id number] ####[facility]CL[facility] [id number] [place] [address] [place] Color (U) Yellow Normal Yellow [facility] Comment on above: Order Comment: Speci men Type: URINE SPECIMENOrdering Facility: [facility] Address: [address] [place] [address] Performed By: #### L [id number] ####[facility] [id number] [place] [address] [place] Glucose Test strip (U) [Mass/Vol] Negative Normal Trace, Negative [facility] Comment on above: Order Comment: Speci men Type: URINE SPECIMENOrdering Facility: [facility] Address: [address] [place] [address] Performed By: #### L [id number] ####[facility]CL[facility] [id number] [place] [address] [place] Hemoglobin Ql (U) Negative Normal Negative, Trace [facility] Comment on above: Order Comment: Speci men Type: URINE SPECIMENOrdering Facility: [facility] Address: [address] [place] [address] Performed By: #### L [id number] ####[facility]CL[facility] [id number] [place] [address] [place] Ketones Ql (U) Negative Normal Negative, Trace [facility] Comment on above: Order Comment: Speci men Type: URINE SPECIMENOrdering Facility: [facility] Address: [address] [place] [address] Performed By: #### L [id number] ####[facility]CL[facility] [id number] [place] [address] [place] Leukocyte esterase Test strip Ql (U) Negative Normal Negative, 25 Ben/uL [facility] Comment on above: Order Comment: Speci men Type: URINE SPECIMENOrdering Facility: [facility] Address: [address] [place] [address] Performed By: #### L [id number] ####[facility] [id number] [place] [address] [place] Nitrite Ql (U) Negative Normal Negative [facility] Comment on above: Order Comment: Speci men Type: URINE SPECIMENOrdering Facility: [facility] Address: [address] [place] [address] Performed By: #### L [id number] ####[facility] LABCL[facility] [id number] [place] [address] [place] pH (U) 5.5 [pH] Normal 5.0-8.0 [facility] Comment on above: Order Comment: Speci men Type: URINE SPECIMENOrdering Facility: [facility] Address: [address] [place] [address] Performed By: #### L [id number] ####[facility] LABCL[facility] [id number] [place] [address] [place] Protein (U) [Mass/Vol] 1+ Abnormal Trace, Negative [facility] Comment on above: Order Comment: Speci men Type: URINE SPECIMENOrdering Facility: [facility] Address: [address] [place] [address] Performed By: #### L [id number] ####[facility] LABCL[facility] [id number] [place] [address] [place] Specific gravity (U) [Rel density] 1.023 Normal 1.005-1.030 [facility] Comment on above: Order Comment: Speci men Type: URINE SPECIMENOrdering Facility: [facility] Address: [address] [place] [address] Performed By: #### L [id number] ####[facility] LABCL[facility] [id number] [place] [address] [place] Urobilinogen Ql (U) 1+ Abnormal Normal [facility] Comment on above: Order Comment: Speci men Type: URINE SPECIMENOrdering Facility: [facility] Address: [address] [place] [address] Performed By: #### L [id number] ####[facility] [id number] [place] [address] [place] US KIDNEY/BLADDERon 06-21-19 24 US KIDNEY/BLADDER * * *Final Report* * * DATE OF EXAM: Jun 21 2023 2:21PM FELICITY 1055 - US KIDNEY/BLADDER / PROCEDURE REASON: Renal mass * * * * Physician Interpretation * * * * EXAMINATION: RENAL ULTRASOUND HISTORY: Right renal mass, previously biopsied 02/26/2023, follow-up surveillance (previous pathology favoring papillary RCC). TECHNIQUE: Sonography of the kidneys and urinary bladder was performed. Images were obtained and stored in a permanent archive. M: UR_1 COMPARISON: Outside CT 01/04/2023, MRI 01/15/2023. RESULT: Right Kidney: -Renal length: 10.9 cm -Parenchyma: Normal parenchymal echogenicity. Normal parenchymal thickness. -Collecting system: No hydronephrosis. -Calculus: No echogenic, shadowing calculus. -Lesion: 4.2 x 4.0 x 3.9 cm heterogeneously echogenic, solid mass exophytic from the upper pole, correlating with recent prior imaging and not significantly changed by size allowing for technical variation. Additional benign-appearing 1.4 cm upper/interpolar cyst. Left Kidney: -Renal length: 11.1 cm -Parenchyma: Normal parenchymal echogenicity. Normal parenchymal thickness. -Collecting system: No hydronephrosis. -Calculus: No echogenic, shadowing calculus. -Lesion: 2.1 cm lower pole cyst. Bladder: Unremarkable sonographic appearance of a partially decompressed urinary bladder. IMPRESSION: 4.2 CM RIGHT UPPER POLE RENAL NEOPLASM, NOT SIGNIFICANTLY CHANGED BY SIZE FROM AVAILABLE PRIORS. NO HYDRONEPHROSIS. Concrete Grinder Operator: DAKSHA Transcribe Date/Time: Jun 21 2023 2:22P Dictated by : FADUMO FENG DO This examination was interpreted and the report reviewed and electronically signed by: FADUMO FENG DO on Jun 21 2023 2:52PM EST [id number] Normal [facility] Kidney - bilateral and Ur inary bladderon 06-21-2023 [facility] Laboratory - Chemistry and C hemistry - challengeon 06-11-2023 Albumin [Mass/Vol] 4.7 g/dL [facility] Bilirubin Ql (U) Negative [facility] Calcium [Mass/Vol] 9.5 mg/dL [facility] Chloride [Moles/Vol] 99 mmol/L [facility] CO2 [Moles/Vol] 25 mmol/L [facility] Creatinine [Mass/Vol] 2.34 mg/dL [facility] Glucose (U) [Mass/Vol] Negative [facility] Glucose [Mass/Vol] 113 mg/dL [facility] Ketones Ql (U) Negative [facility] Magnesium [Mass/Vol] 2.1 mg/dL [facility] pH (U) 6 [pH] [facility] Potassium [Moles/Vol] 4.4 mmol/L [facility] Sodium [Moles/Vol] 135 mmol/L [facility] Specific gravity (U) [Rel density] 1.021 [facility] Urate [Mass/Vol] 6.6 mg/dL [facility] Urea nitrogen [Mass/Vol] 34 mg/dL [facility] Urobilinogen (U) [Mass/Vol] 0.2 mg/dL [facility] Laboratory - Hematology and Cell countson 06-11-2023 Erythrocyte distribution width (RBC) [Ratio] 13.1 % [facility] Hematocrit (Bld) [Volume fraction] 41.5 % [facility] Hemoglobin (Bld) [Mass/Vol] 14.4 g/dL [facility] MCH (RBC) [Entitic mass] 29.0 pg [facility] MCHC (RBC) [Mass/Vol] 34.7 g/dL [facility] MCV (RBC) [Entitic vol] 83.5 fL [facility] Platelet mean volume (Bld) [Entitic vol] 10.9 fL [facility] Platelets (Bld) [#/Vol] 400 10*3/uL [facility] RBC (Bld) [#/Vol] 4.97 10*6/uL [facility] WBC (Bld) [#/Vol] 11.1 10*3/uL [facility] Laboratory - Specimen inform ationon 06-11-2023 Appearance (U) clear [facility] Color (U) yellow [facility] Laboratory - Urinalysison Leukocyte esterase Test strip Ql (U) Negative [facility] Nitrite Ql (U) Negative [facility] Protein Ql (U) 1+ [facility] No Panel Informationon 06-11 25-Hydroxy Vitamin D Total 22 ng/mL [facility] Estimated GFR (Non- 28 mL/min [facility] Parathyroid Hormone (Intact) 85 [facility] Phosphorus Level 3.9 mg/dL [facility] Urine Occult Blood Negative [facility] Urine Protein/Creatinine Ratio 336 [facility] Urine Random Creatinine 134 [facility] Urine Random Total Protein 45 [facility] A1C HEMOGLOBINon 05-07-2023 HbA1c (Bld) [Mass fraction] 7.2 % [facility] Glucose - FINGER STICKon Glucose [Mass/Vol] 152 mg/dL [facility] Other HbA1c (Bld) [Mass fraction]o n 05-07-2023 A1C HEMOGLOBIN Formerly [facility] [employer] Other CNOVon 03-20-2023 CNOV Office Visit (UROLMN ) JOURDAN AREVALO ([id number]) 1945 M Date Time Provider Department 03/20/23 11:45 AM JOSE DANIEL RENEE During your visit today, we recorded the following information about you: Jose Daniel Renee MD 04/13/2023 9:13 PM Signed PATIENT: Jourdan Arevalo [id number] 03/20/2023 This clinic note was copied and updated from previous note from 02/06/23 Chief Complaint: Follow up for renal mass History of Present Illness: Jourdan Arevalo is a very pleasant 77 year old male who presents with a history of right renal mass. Solid right renal mass measuring 4.[address] A/P in the right upper pole of the kidney. Patient also has 0.6 cm-1 cm cyst in the left kidney. It was noted in outside note that the patient has been unable to get an MRI done due to creatinine levels. Patient is s/p kidney biopsy on 02/26/23. Pathology revealed predominantly benign renal parenchyma. Copied from outside note 12/18/22 Interval Hx: The patient is visiting today to review results of Pathology 02/26/23 FINAL DIAGNOSIS A. Kidney, right mass, core biopsy: - Focal renal cell proliferation with predominantly benign renal parenchyma, favor papillary renal cell carcinoma - see Comment. Physical Exam: There were no vitals taken for this visit. General: Alert, no acute distress, oriented Lungs: No respiratory distress or pursed lip breathing Psych: Affect and mood normal Abdomen: There is no height or weight on file to calculate BMI. Labs and Pathology: Pathology 02/26/23 FINAL DIAGNOSIS A. Kidney, right mass, core biopsy: - Focal renal cell proliferation with predominantly benign renal parenchyma, favor papillary renal cell carcinoma - see Comment. No results found for: [facility] 12/29/22 I personally reviewed all applicable laboratory and pathology data reviewed with patient Significant for renal mass Imaging: CT abd/pel 01/04/23 MRI abdomen 01/19/2023 I personally viewed all applicable imaging and interpreted them and went over the results with the patient. Assessment: 4.6cm Right Renal mass with biopsy performed on 02/26/23 showing predominantly benign renal parenchyma,favor papillary renal cell carcinoma Plan: 1.Follow up visit in 3 months with US kidney/bladder completed prior to visit Scribed for Dr. Jose Daniel Renee by chapito Sarkar scribe on 03/20/2023 I agree with the Chief Complaint, ROS, and Past Histories independently gathered by the clinical account support specialist including scribe and or medical student and or RENEE and or resident or fellow and the remaining scribed note accurately describes my personal service to the patient. Jose Daniel Renee MD, MS [facility] Referring Provider: JOSE DANIEL RENEE [[id number]] Allergies As of Date: 03/20/2023 (No Known Allergies) Date Reviewed: 03/20/2023 Reviewed by: Orquidea Harris MA - Fully Assessed Reason for Visit: Follow Up [171] Renal mass [Other] Primary Visit Diagnosis:Renal mass [N28.89] Other Visit Diagnoses:Type 2 diabetes mellitus with stage 3 chronic kidney disease, 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, unspecified whether stage 3a or 3b CKD (HCC) [E11.22, N18.30] Stage 3b chronic kidney disease (HCC) [N18.32] Order(s):US KIDNEY/BLADDER [[id number]] Order #: [id number] FUTURE Prescriptions as of 04/13/2023 - amLODIPine (NORVASC) 10 mg tablet 1 tablet Orally Daily for 30 days - atorvastatin (LIPITOR) 10 mg tablet Take by mouth every 24 hours. - omeprazole (PRILOSEC) 40 mg capsule Take by mouth. - doxazosin (CARDURA) 2 mg tablet Take by mouth every 24 hours. - tamsulosin (FLOMAX) 0.4 mg TAKE 1 CAPSULE BY MOUTH 30 MINUTES AFTER THE SAME MEAL EACH DAY ONCE A DAY - montelukast (SINGULAIR) 10 mg tablet Take 1 tablet by mouth every afternoon. - lisinopril (ZESTRIL) 40 mg tablet Take 1 tablet by mouth every afternoon. - insulin degludec (TRESIBA FLEXTOUCH U-100) 100 unit/mL (3 mL) injection pen Inject 12 Units subcutaneously. - FREESTYLE DESTINEY 2 SENSOR kit USE DIRECTED EVERY 14 DAYS - semaglutide (OZEMPIC SUBCUTANEOUS) Inject subcutaneously. Problem List As Of Date 03/20/2023 Noted Resolved Type 2 diabetes mellitus with stage 3 chronic k*03/04/2023 Stage 3b chronic kidney disease (HCC) [N18.32] 03/04/2023 Encounter Status:Closed by JOSE DANIEL RENEE on 04/13/23 Normal [facility] URINALYSIS, REFLEX MICROSCOP ICon 03-20-2023 Bilirubin Ql (U) Negative Negative [facility] Clarity (Unsp spec) Clear Clear [facility] Color (U) Light Yellow Yellow [facility] Glucose Test strip (U) [Mass/Vol] Negative Trace, Negative [facility] Hemoglobin Ql (U) Negative Negative, Trace [facility] Ketones Ql (U) Negative Negative, Trace [facility] Leukocyte esterase Test strip Ql (U) Negative Negative, 25 Ben/uL [facility] Nitrite Ql (U) Negative Negative [facility] pH (U) 5.5 [pH] 5.0 - 8.0 [facility] Protein (U) [Mass/Vol] Trace Trace, Negative [facility] Specific gravity (U) [Rel density] 1.015 1.005 - 1.030 [facility] Urobilinogen Ql (U) Negative Negative [facility] Bilirubin Ql (U) Negative Normal Negative [facility] Comment on above: Order Comment: Speci men Type: URINE SPECIMENOrdering Facility: [facility] Address: [address] [place] [address] Performed By: #### L [id number] ####[facility] LABIA [id number] [place] [address] [place] Clarity (Unsp spec) Clear Normal Clear [facility] Comment on above: Order Comment: Speci men Type: URINE SPECIMENOrdering Facility: [facility] Address: [address] [place] [address] Performed By: #### L [id number] ####[facility] LABCL[facility] [id number] [place] [address] [place] Color (U) Light Yellow Normal Yellow [facility] Comment on above: Order Comment: Speci men Type: URINE SPECIMENOrdering Facility: [facility] Address: [address] [place] [address] Performed By: #### L [id number] ####[facility]CL[facility] [id number] [place] [address] [place] Glucose Test strip (U) [Mass/Vol] Negative Normal Trace, Negative [facility] Comment on above: Order Comment: Speci men Type: URINE SPECIMENOrdering Facility: [facility] Address: [address] [place] [address] Performed By: #### L [id number] ####[facility]CL[facility] [id number] [place] [address] [place] Hemoglobin Ql (U) Negative Normal Negative, Trace [facility] Comment on above: Order Comment: Speci men Type: URINE SPECIMENOrdering Facility: [facility] Address: [address] [place] [address] Performed By: #### L [id number] ####[facility]CL[facility] [id number] [place] [address] [place] Ketones Ql (U) Negative Normal Negative, Trace [facility] Comment on above: Order Comment: Speci men Type: URINE SPECIMENOrdering Facility: [facility] Address: [address] [place] [address] Performed By: #### L [id number] ####[facility]CL[facility] [id number] [place] [address] [place] Leukocyte esterase Test strip Ql (U) Negative Normal Negative, 25 Ben/uL [facility] Comment on above: Order Comment: Speci men Type: URINE SPECIMENOrdering Facility: [facility] Address: [address] [place] [address] Performed By: #### L [id number] ####[facility]CL[facility] [id number] [place] [address] [place] Nitrite Ql (U) Negative Normal Negative [facility] Comment on above: Order Comment: Speci men Type: URINE SPECIMENOrdering Facility: [facility] Address: [address] [place] [address] Performed By: #### L [id number] ####[facility]CL[facility] [id number] [place] [address] [place] pH (U) 5.5 [pH] Normal 5.0-8.0 [facility] Comment on above: Order Comment: Speci men Type: URINE SPECIMENOrdering Facility: [facility] Address: [address] [place] [address] Performed By: #### L [id number] ####[facility]IA [id number] [place] [address] [place] Protein (U) [Mass/Vol] Trace Normal Trace, Negative [facility] Comment on above: Order Comment: Speci men Type: URINE SPECIMENOrdering Facility: [facility] Address: [address] [place] [address] Performed By: #### L [id number] ####[facility] [id number] [place] [address] [place] Specific gravity (U) [Rel density] 1.015 Normal 1.005-1.030 [facility] Comment on above: Order Comment: Speci men Type: URINE SPECIMENOrdering Facility: [facility] Address: [address] [place] [address] Performed By: #### L [id number] ####[facility] [id number] [place] [address] [place] Urobilinogen Ql (U) Negative Normal Negative [facility] Comment on above: Order Comment: Speci men Type: URINE SPECIMENOrdering Facility: [facility] Address: [address] [place] [address] Performed By: #### L [id number] ####[facility] [id number] [place] [address] [place] BRIEF OP NOTon 02-26-2023 BRIEF OP NOT HNO ID: [id number] Author: Ludwin Romo MD Service: ? Author Type: Physician Type: Brief Op Note Filed: 02/26/2023 1:45 PM Note Text: BRIEF OPERATIVE / PROCEDURE NOTE LOG ID: [id number] SURGERY/PROCEDURE DATE: 02/26/2023 INCISION/PROCEDURE START TIME: 1:32 PM INCISION CLOSE/PROCEDURE END TIME: 1:44 PM SURGEON(S)/PROCEDURALIS T(S) AND REGIONAL MANAGER(S): Surgeon(s) and Role: * Baron Lr MD - Primary * Ludwin Romo MD - Fellow No Additional Staff SURGERY/PROCEDURE(S): US guided right renal mass biopsy ANESTHESIA: Procedural Sedation FINDINGS: 3 core specimens ESTIMATED BLOOD LOSS: trace SPECIMENS: 3 core specimens COMPLICATIONS: None PRE-OP/PRE-PROCEDURE DIAGNOSIS: Right renal mass POST-OP/POST-PROCEDURE DIAGNOSIS: Same as Preop SIGNATURE: Ludwin Room MD PATIENT NAME: Jourdan Arevalo DATE: February 26, 2023 TIME: 1:45 PM Normal [facility] CBC panel Auto (Bld)on 02-26 Erythrocyte distribution width (RBC) [Ratio] 12.8 % Normal 11.5-15.0 [facility] Comment on above: Order Comment: Speci men Type: BLOOD SPECIMENOrdering Facility: [facility] Address: [address] [place] [address] Performed By: #### 5 8410-2 ####[facility] [id number] [place] [address] [place] Hematocrit (Bld) [Volume fraction] 43.8 % Normal 39.0-51.0 [facility] Comment on above: Order Comment: Speci men Type: BLOOD SPECIMENOrdering Facility: [facility] Address: [address] [place] [address] Performed By: #### 5 8410-2 ####[facility] [id number] [place] [address] [place] Hemoglobin (Bld) [Mass/Vol] 14.6 g/dL Normal 13.0-17.0 [facility] Comment on above: Order Comment: Speci men Type: BLOOD SPECIMENOrdering Facility: [facility] Address: [address] [place] [address] Performed By: #### 5 8410-2 ####[facility]CL[facility] [id number] [place] [address] [place] MCH (RBC) [Entitic mass] 28.4 pg Normal 26.0-34.0 [facility] Comment on above: Order Comment: Speci men Type: BLOOD SPECIMENOrdering Facility: [facility] Address: [address] [place] [address] Performed By: #### 5 8410-2 ####[facility] LABIA [id number] [place] [address] [place] MCHC (RBC) [Mass/Vol] 33.3 g/dL Normal 30.5-36.0 [facility] Comment on above: Order Comment: Speci men Type: BLOOD SPECIMENOrdering Facility: [facility] Address: [address] [place] [address] Performed By: #### 5 8410-2 ####[facility]IA [id number] [place] [address] [place] MCV (RBC) [Entitic vol] 85.2 fL Normal 80.0-100.0 [facility] Comment on above: Order Comment: Speci men Type: BLOOD SPECIMENOrdering Facility: [facility] Address: [address] [place] [address] Performed By: #### 5 8410-2 ####[facility] [id number] [place] [address] [place] Nucleated RBC (Bld) [#/Vol] 10*3/uL Normal <0.01 [facility] Comment on above: Order Comment: Speci men Type: BLOOD SPECIMENOrdering Facility: [facility] Address: [address] [place] [address] Performed By: #### 5 8410-2 ####[facility] [id number] [place] [address] [place] Platelet mean volume (Bld) [Entitic vol] 10.7 fL Normal 9.0-12.7 [facility] Comment on above: Order Comment: Speci men Type: BLOOD SPECIMENOrdering Facility: [facility] Address: [address] [place] [address] Performed By: #### 5 8410-2 ####[facility]CL[facility] [id number] [place] [address] [place] Platelets (Bld) [#/Vol] 338 10*3/uL Normal 150-400 [facility] Comment on above: Order Comment: Speci men Type: BLOOD SPECIMENOrdering Facility: [facility] Address: [address] [place] [address] Performed By: #### 5 8410-2 ####[facility] [id number] [place] [address] [place] RBC (Bld) [#/Vol] 5.14 10*6/uL Normal 4.20-6.00 [facility] Comment on above: Order Comment: Speci men Type: BLOOD SPECIMENOrdering Facility: [facility] Address: [address] [place] [address] Performed By: #### 5 8410-2 ####[facility] [id number] [place] [address] [place] WBC (Bld) [#/Vol] 14.09 10*3/uL High 3.70-11.00 [facility] Comment on above: Order Comment: Speci men Type: BLOOD SPECIMENOrdering Facility: [facility] Address: [address] [place] [address] Performed By: #### 5 8410-2 ####[facility] LABCL[facility] [id number] [place] [address] [place] HISTORY PHYSICALon 3 HISTORY PHYSICAL HNO ID: [id number] Author: Noe Lozano MD Service: Interventional Radiology Author Type: Resident Type: HANDP Filed: 02/26/2023 12:36 PM Note Text: Attestation signed by Baron Lr MD at 03/26/2023 11:32 AM Radiology Attending Note I evaluated the patient and personally participated in the hloman components. I agree with the resident's findings and plan as documented and have discussed the case and management of the patient's care with the resident. Signature: Baron Lr MD Date: 03/26/2023 Time: 11:32 AM UPDATED PROCEDURAL SEDATION HISTORY AND PHYSICAL EXAMINATION SERVICE DATE: 02/26/2023 SERVICE TIME: 12:36 PM PHYSICAL EXAM MUST BE COMPLETED ON ADMISSION PROCEDURE: Image guided percutaneous right renal mass biopsy Procedure Indications: indeterminate renal mass The History and Physical (completed in the past 30 days) has been reviewed and the patient has been examined. The contents accurately reflect the patient's condition with the following additions or revisions since the HANDP was completed. ASA Class: ASA Class:: Patient with severe systemic disease Examination indicates no changes. AIRWAY: Airway Visualization of Uvula: Yes Mouth opening greater than 2 fingerbreadths: Yes Neck Full Range of Motion: Yes LUNGS: Lungs clear to auscultation CARDIAC: Regular rhythm,Regular rate Provisional Diagnosis/Treatment Plan: Image guided percutaneous right renal mass biopsy SEDATION GOAL: Moderate This HANDP can be found in the Electronic Medical Record dated 02/06/2023. SIGNATURE: Noe Lozano MD MS PATIENT NAME: Jourdan Arevalo DATE: February 26, 2023 TIME: 12:36 PM Normal [facility] NURSING PROGon 02-26-2023 NURSING PROG HNO ID: [id number] Author: Jessie Platt RN Service: ? Author Type: Registered Nurse Type: Nursing Progress Note Filed: 02/27/2023 8:46 AM Note Text: Attempted post procedure phone call. Left VM for patient to return call to [phone] with any questions/concerns. Normal [facility] PT EDon 02-26-2023 PT ED HNO ID: [id number] Author: Anna Zayas, VERÓNICA Service: Radiology Author Type: Registered Nurse Type: Patient Education Filed: 02/26/2023 1:30 PM Note Text: AMBULATORY PATIENT EDUCATION NOTE TOPIC: HEALTH PROMOTION: Complication prevention READINESS TO LEARN COGNITIVE ABILITY: Alert and oriented MOTIVATION TO LEARN: Interested FAMILY SUPPORT: High - Very involved in pt care INSTRUCTION PROVIDED TO: Patient PATIENT LEARNS BEST BY: Individual Instruction FACTORS AFFECTING LEARNING: None PHYSICAL LIMITATIONS AFFECTING LEARNING: None LEARNING RESPONSE DIAGNOSIS: right renal mass biopsy METHOD OF INSTRUCTION: Individual instruction PATIENT / FAMILY RESPONSE: Verbalizes understanding of: POST-PROCEDURE INSTRUCTIONS-Correct actions to take to reduce post procedure complications FOLLOW-UP PLAN: Complete - No need for follow-up SUPPLEMENTAL MATERIAL: None REFERRAL (RECOMMENDATION): None Electronically Signed By: Anna Velasco RN In Department: [place] [id number] Time spent on patient education: 05 minutes. Normal [facility] PT panel Coag (PPP)on 2022 INR Coag (PPP) [Relative time] 1.0 {INR} Normal 0.9-1.3 [facility] [facility] Comment on above: Order Comment: Speci men Type: BLOOD SPECIMENOrdering Facility: [facility] Address: [address] [place] [address] Result Comment: Carolina min K Antagonist (VKA) Therapeutic Range: INR 2 to 3 (Target INR of 2.5) Note: For patients treated with VKA drugs, such as warfarin, the [employer] 2012 Guideline recommends a therapeutic INR range of 2 to 3 (target INR of 2.5). This recommendation includes high-risk patients with antiphospholipid syndrome with previous arterial or venous thromboembolism, current-generation mechanical or bioprosthetic aortic heart valve replacement. Note: Patients with mechanical aortic valve replacement and additional risk factors for thromboembolic events (atrial fibrillation, previous thromboembolism, LV dysfunction, hypercoagulable conditions) or an older generation mechanical AVR (i.e., ball in-Cage) or any mechanical MVR should have a INR therapeutic range of 2.5 to 3.5 (target INR of 3). Megha DRAKE, et al. Chest 2012, 141:7S-47S Rubi RA, et al. [facility] 2017, 70: 252-289 Performed By: #### 3 4528-0 ####[facility] [id number] [place] [address] [place] PT Coag (PPP) [Time] 10.7 s Normal 9.7-13.0 [facility] Comment on above: Order Comment: Soha roberto Type: BLOOD SPECIMENOrdering Facility: [facility] Address: [address] [place] [address] Performed By: #### 3 4528-0 ####[facility] [id number] [address] [place] SURGICAL PATHOLOGYon 023 CASE REPORT Normal [facility] Comment on above: Order Comment: Soha roberto Type: TISSUE SPECIMEN [facility] Address: [address] [place] [address] Result Comment: Surg [facility] Pathology Report Case: [id number] Authorizing Provider: Getachew Churchill MD Collected: 02/26/2023 01:35 PM Ordering Location: [place] [address] Received: 02/26/2023 05:50 PM Pathologist: Jorge Cruz MD Specimen: KIDNEY MASS BIOPSY RIGHT, [email or web address] Performed By: #### S #### [facility] CLIA [id number] STATES OF [facility] CLINICAL HISTORY Indeterminate right renal mass in 79 M[right renal mass biopsy Normal [facility] Comment on above: Order Comment: Soha roberto Type: TISSUE SPECIMEN [facility] Address: [address] [place] [address] Performed By: #### S #### [facility] CLIA [id number] [address] [facility] [id number] [address] [place] DIAGNOSIS COMMENT Normal [facility] Comment on above: Order Comment: Speci men Type: TISSUE SPECIMEN [facility] Address: [address] [place] [address] Result Comment: The biopsy contains only a small area of neoplastic cells (predominantly benign renal parenchyma), in which tumor cells are intermingled with fibrous tissue. Based on the combined morphology and immunohistochemistry, this is favored to be a papillary renal cell lesion. For papillary renal cell neoplasms less than 15 mm greatest dimension, papillary adenoma remains a consideration; however, there is a suggestion of a fibrous capsule, which would be more in favor of papillary renal cell carcinoma. Clinically, imaging studies are noted to have a mass of 4.9 cm. Assistant Professor Of Religion slides were reviewed at the genitourinary pathology consensus conference, with Drs. Cerna, Linda, and others. To attempt to discern the histologic tumor type, immunohistochemical staining was performed on separate slides from block A1, showing the following results: AMACR, keratin 7 and PAX8 are strongly positive, compatible with a papillary renal cell proliferation. GATA3 and p63 are negative, arguing against a urothelial proliferation. Fumarate hydratase is normal positive, and 2SC shows a negative reaction, arguing against FH deficient renal cell carcinoma. CA9 is negative, arguing against clear cell type renal cell carcinoma or clear cell papillary renal cell tumor. Laboratory Developed Test (LDT) Disclaimer: Performance characteristics of immunohistochemical, immunofluorescent and chromogenic in-situ hybridization tests have been determined by the performing laboratory within [facility]???s [facility] Laboratory Medicine [place] ([facility], [facility], [facility], [facility], [facility], Counts Include [facility], or [facility]) in a manner consistent with CLIA requirements. One or more of these tests have not been cleared or approved by the FDA. [facility] is regulated under CLIA as qualified to perform high-complexity testing. These tests are used for clinical purposes. They should not be regarded as investigational or for research. Positive and negative controls stain appropriately. Performed By: #### S #### [facility] CLIA [id number] [address] [place] [address] [place] FINAL DIAGNOSIS Normal [facility] Comment on above: Order Comment: Speci men Type: TISSUE SPECIMEN [facility] Address: [address] [place] [address] Result Comment: Ashley victor, right mass, core biopsy: - Focal renal cell proliferation with predominantly benign renal parenchyma, favor papillary renal cell carcinoma - see Comment. Performed By: #### S #### [facility] CLIA [id number] [address] [place] [address] STATES OF [facility] FINAL PERFORMING LAB Normal [facility] Comment on above: Order Comment: Speci men Type: TISSUE SPECIMEN [facility] Address: [address] [place] [address] Result Comment: Diag nostic interpretation performed at [facility], [address] [place] [address] CLIA# [id number] Compensation And Hris Analyst: Abner Delgado M.D. Performed By: #### S #### [facility] CLIA [id number] [address] [place] [address] [place] GROSS DESCRIPTION Normal [facility] Comment on above: Order Comment: Speci men Type: TISSUE SPECIMEN [facility] Address: [address] [place] [address] Result Comment: Ashley VICTOR MASS BIOPSY RIGHT Received in formalin are multiple segments of cylindrical tissue aggregating to 1.7 x 0.3 x 0.1 cm, leary-red and of a soft and friable consistency. Totally submitted in one cassette. Gross examination performed at [address] February 26, 2023 8:16 PM Performed By: #### S #### [facility] CLIA [id number] [address] [place] [address] [place] US BIOPSY RENALon 11-06-2023 US BIOPSY RENAL * * *Final Report* * * DATE OF EXAM: Feb 26 2023 1:49PM U 1070 - US BIOPSY RENAL / PROCEDURE REASON: N28.89-Renal mass * * * * Physician Interpretation * * * * PROCEDURE PERFORMED: ULTRASOUND GUIDED BIOPSY PRE-PROCEDURE DIAGNOSIS: Indeterminate renal lesion POST-PROCEDURE DIAGNOSIS: Same as pre-procedure diagnosis INDICATION FOR PROCEDURE: Indeterminate renal lesion RELEVANT PRIOR STUDIES: MRI 01/15/2023. STAFF RADIOLOGIST: Dr. Lr REGIONAL MANAGER(S): Dr. Romo CONSENT: The risks, benefits, treatment options, potential complications and personnel involved were discussed with the patient. All questions were answered and consent was obtained. The patient indicated willingness to proceed. The staff physician personally verified consent. TIME OUT: A time out was performed immediately prior to procedure start with the nursing, anesthesia and interventional team, correctly identifying the patient name, date of , procedure, anatomy (including marking of site and side), patient position, procedure consent form, relevant diagnostic and radiology test results, antibiotic administration, safety precautions, and procedure-specific equipment needs. RESULT: PROCEDURE: After performing the time out, the kidney lesion was localized with ultrasound, images were obtained and archived. The right flank was prepped and draped in the usual sterile fashion. Under direct ultrasound guidance, 3 passes were made into the kidney lesion using an 18 gauge core biopsy needle. The procedure was performed by the: attending radiologist, with an medical receptionist medical assistant. The attending radiologist performed the following procedural activities: The attending radiologist performed the entirety of the procedure. ANESTHESIA/SEDATION: Conscious sedation: Versed: 1.0 mg IV Fentanyl: 50 mcg IV Local anesthesia: Lidocaine 2%: 10 cc Vital signs were monitored by the nurse. START TIME/TIMEOUT TIME: 1326 END TIME: 1344 INTRA-SERVICE (SEDATION) TIME: 18 minutes PATIENT MONITORING: The staff physician personally supervised and directed an independent trained observer who assisted in monitoring the patient?s level of consciousness and physiological status throughout the procedure. SIGNIFICANT COMPLICATIONS: None MINOR COMPLICATIONS: None SIGN-OUT DISCUSSION: Completed ESTIMATED BLOOD LOSS: None SPECIMENS: 3 core biopsy specimens were placed in formalin and sent to surgical pathology. First core was solid-appearing. Subsequent cores were fragmented. BIOPSY DEVICE: 18 gauge CorvogBoxt core biopsy needle. IMPRESSION: ULTRASOUND GUIDED RIGHT RENAL LESION BIOPSY DESCRIBED. v 12.9.21 Concrete Grinder Operator: DAKSHA Transcribe Date/Time: Feb 26 2023 1:50P Dictated by : LUDWIN ROMO MD This examination was interpreted and the report reviewed and electronically signed by: BARON LR MD on Feb 26 2023 2:00PM EST [id number] Normal [facility] US IMAGING GUIDED BIOPSY JOSELIN Phillip 02-26-2023 [facility] URINALYSIS, REFLEX MICROSCOP ICon 02-06-2023 Bilirubin Ql (U) Negative Negative [facility] Clarity (Unsp spec) Clear Clear [facility] Color (U) Light Yellow Yellow [facility] Glucose Test strip (U) [Mass/Vol] Negative Trace, Negative [facility] Hemoglobin Ql (U) Negative Negative, Trace [facility] Ketones Ql (U) Negative Negative, Trace [facility] Leukocyte esterase Test strip Ql (U) Negative Negative, 25 Ben/uL [facility] Nitrite Ql (U) Negative Negative [facility] pH (U) 6.5 [pH] 5.0 - 8.0 [facility] Protein (U) [Mass/Vol] 1+ Abnormal Trace, Negative [facility] Specific gravity (U) [Rel density] 1.014 1.005 - 1.030 [facility] Urobilinogen Ql (U) Negative Negative [facility] Ambulatory Visit Summaryon 0 01-19-2023 Ambulatory Visit Summary JOURDAN AREVALO :1945 Visit Date:01/19/2023 Ambulatory Visit Instructions Your Diagnosis Right renal mass BPH (benign prostatic hyperplasia) Tests Performed Urnls Dip Stick Auto w/o Microscopy POC 72126 Your Care Team Attending Physician - PA CHRIS, Christophe Sands Primary Care Physician - SAVANA ALBERT, FRANCISCO Oconnell This Is Your Medications List Contact prescribing physician if questions or concerns insulin degludec (Tresiba) lisinopril (lisinopril 40 mg Tab) montelukast (montelukast 10 mg Tab) omeprazole (omeprazole 40 mg Cap-DR) semaglutide (Ozempic) tamsulosin (tamsulosin 0.4 mg Cap) Procedures Performed Tonsillectomy. Discharge Vitals Temperature (Temporal Artery) 36.7 ?C Heart Rate (Peripheral) 78 Blood Pressure 128/78 Height 173 cm Height 68 in Weight 84 kg Weight 184.8 lb BMI 28.07 What to do next You Need to Schedule the Following Appointments Follow Up with PA CHRIS, ROBERTA Steve When: Comments: f/u with [facility] Where: [facility] [address], [place] [address]- Medications What How Much When Instructions Unchanged insulin degludec (Tresiba) Every day Contact prescribing physician if questions or concerns Unchanged lisinopril (lisinopril 40 mg Tab) Contact prescribing physician if questions or concerns Unchanged montelukast (montelukast 10 mg Tab) Contact prescribing physician if questions or concerns Unchanged omeprazole (omeprazole 40 mg Cap-DR) Every day Contact prescribing physician if questions or concerns Unchanged semaglutide (Ozempic) Every week Contact prescribing physician if questions or concerns Unchanged tamsulosin (tamsulosin 0.4 mg Cap) Contact prescribing physician if questions or concerns Test Results Urnls Dip Stick Auto w/o Microscopy POC 77649 (01/19/2023) Bilirubin Urine Dipstick - Negative Blood Urine Dipstick - Negative Glucose Urine Dipstick - Negative Ketones Urine Dipstick - Negative Leukocytes Urine Dipstick - Negative Nitrite Urine Dipstick - Negative Protein Urine Dipstick - 1+ (30 mg/dl) Specific [place] Urine Dipstick - 1.020 Urine Appearance Urine Dipstick - Clear Urine Color Urine Dipstick - Yellow Urobilinogen Urine Dipstick - Normal 0.2-1 EU/dl pH Urine Dipstick - 6 Allergies No Known Medication Allergies Problems Ongoing - Any problem that you are currently receiving treatment for. BPH (benign prostatic hyperplasia) CKD (chronic kidney disease) Diabetes Dyslipidemia Hypertension Right renal mass Secondary hyperparathyroidism Historical - Any problem that you are no longer receiving treatment for. Vitamin D deficiency Education Materials Renal Mass A renal mass is an abnormal growth in the kidney. It may be found while performing an MRI, CT scan, or ultrasound to evaluate other problems of the abdomen. A renal mass that is cancerous (malignant) may grow or spread quickly. Others are not cancerous (benign). Renal masses include: ? Tumors. These may be malignant or benign. ? The most common type of kidney cancer in adults is renal cell carcinoma. In children, the most common type of kidney cancer is Wilms tumor. ? The most common benign tumors of the kidney include renal adenomas, oncocytomas, and angiomyolipoma (AML). ? Cysts. These are fluid-filled sacs that form on or in the kidney. What are the causes? Certain types of cancers, infections, or injuries can cause a renal mass. It is not always known what causes a cyst to develop in or on the kidney. What are the signs or symptoms? Often, a renal mass does not cause any signs or symptoms; most kidney cysts do not cause symptoms. How is this diagnosed? Your health care provider may recommend tests to diagnose the cause of your renal mass. These tests may be done if a renal mass is found: ? Physical exam. ? Blood tests. ? Urine tests. ? Imaging tests, such as ultrasound, CT scan, or MRI. ? Biopsy. This is a small sample that is removed from the renal mass and tested in a lab. The exact tests and how often they are done will depend on: ? The size and appearance of the renal mass. ? Risk factors or medical conditions that increase your risk for problems. ? Any symptoms associated with the renal mass, or concerns that you have about it. Tests and physical exams may be done once, or they may be done regularly for a period of time. Tests and exams that are done regularly will help monitor whether the mass is growing and beginning to cause problems. How is this treated? Treatment is not always needed for this condition. Your health care provider may recommend careful monitoring and regular tests and exams. Treatment will depend on the cause of the mass. Treatment for a cancerous renal mass may include surgical removal, chemotherapy, radiation, or immunotherapy. Most kidney cysts do not need to be treated. (more content not included)... Normal [facility] Patient Educationon 01-20-20 23 Patient Education Urology Renal Mass A renal mass is an abnormal growth in the kidney. It may be found while performing an MRI, CT scan, or ultrasound to evaluate other problems of the abdomen. A renal mass that is cancerous (malignant) may grow or spread quickly. Others are not cancerous (benign). Renal masses include: ? Tumors. These may be malignant or benign. ? The most common type of kidney cancer in adults is renal cell carcinoma. In children, the most common type of kidney cancer is Wilms tumor. ? The most common benign tumors of the kidney include renal adenomas, oncocytomas, and angiomyolipoma (AML). ? Cysts. These are fluid-filled sacs that form on or in the kidney. What are the causes? Certain types of cancers, infections, or injuries can cause a renal mass. It is not always known what causes a cyst to develop in or on the kidney. What are the signs or symptoms? Often, a renal mass does not cause any signs or symptoms; most kidney cysts do not cause symptoms. How is this diagnosed? Your health care provider may recommend tests to diagnose the cause of your renal mass. These tests may be done if a renal mass is found: ? Physical exam. ? Blood tests. ? Urine tests. ? Imaging tests, such as ultrasound, CT scan, or MRI. ? Biopsy. This is a small sample that is removed from the renal mass and tested in a lab. The exact tests and how often they are done will depend on: ? The size and appearance of the renal mass. ? Risk factors or medical conditions that increase your risk for problems. ? Any symptoms associated with the renal mass, or concerns that you have about it. Tests and physical exams may be done once, or they may be done regularly for a period of time. Tests and exams that are done regularly will help monitor whether the mass is growing and beginning to cause problems. How is this treated? Treatment is not always needed for this condition. Your health care provider may recommend careful monitoring and regular tests and exams. Treatment will depend on the cause of the mass. Treatment for a cancerous renal mass may include surgical removal, chemotherapy, radiation, or immunotherapy. Most kidney cysts do not need to be treated. Follow these instructions at home: What you need to do at home will depend on the cause of the mass. Follow the instructions that your health care provider gives to you. In general: ? Take cjpn-oab-ngynszp and prescription medicines only as told by your health care provider. ? If you were prescribed an antibiotic medicine, take it as told by your health care provider. Do not stop taking the antibiotic even if you start to feel better. ? Follow any restrictions that are given to you by your health care provider. ? Keep all follow-up visits. This is important. ? You may need to see your health care provider once or twice a year to have CT scans and ultrasounds. These tests will show if your renal mass has changed or grown. Contact a health care provider if you: ? Have pain in your side or back (flank pain). ? Have a fever. ? Feel full soon after eating. ? Have pain or swelling in the abdomen. ? Lose weight. Get help right away if: ? Your pain gets worse. ? There is blood in your urine. ? You cannot urinate. ? You have chest pain. ? You have trouble breathing. These symptoms may represent a serious problem that is an emergency. Do not wait to see if the symptoms will go away. Get medical help right away. Call your local emergency services (911 in the [place] Summary ? A renal mass is an abnormal growth in the kidney. It may be cancerous (malignant) and grow or spread quickly, or it may not be cancerous (benign). Renal masses often do not have any signs or symptoms. ? Renal masses may be found while performing an MRI, CT scan, or ultrasound for other problems of the abdomen. ? Your health care provider may recommend that you have tests to diagnose the cause of your renal mass. These may include a physical exam, blood tests, urine tests, imaging, or a biopsy. ? Treatment is not always needed for this condition. Careful monitoring may be recommended. This information is not intended to replace advice given to you by your health care provider. Make sure you discuss any questions you have with your health care provider. Document Revised: 10/04/2020 Document Reviewed: 10/04/2020 [email or web address] Patient Education ? 2022 [email or web address] [facility] Urology Office/Clinic Noteon 01-19-2023 Urology Office/Clinic Note Chief Complaint F/U review results HPI Staff 2 week f/u to review MRI results. Previous dx of right renal mass and BPH. Current PSA done 01/03/23 is 3.09. Dysuria: _denies Incomplete bladder emptying: _denies Hematuria: _denies visible blood Frequency: _a couple times Urgency: _denies Nocturia: _3x nightly Stream: _denies hesitation, normal stream Leaking: _denies Post void dripping: _denies Wearing pads/ Depends: denies Urge incontinence: _denies Stress incontinence: denies Incontinence without Sensory Awareness: denies Abdominal pain: denies Flank pain: denies Sexual complaints: denies History of Present Illness Tests reviewed: reviewed UA and MRI. I have reviewed the previous health record information and history for this patient from . I have reviewed and verified the staff HPI to be accurate for this encounter. There have been no associated fever, chills, flank pain, or blood in the urine. Denies any urinary infections since last encounter. Review of Systems PHQ Score Initial Depression Screen Score: 0 ROS - Provider Constitutional: denies weight loss, denies hot flashes. Eyes: denies eye problems. Gastrointestinal: denies nausea, denies vomiting. Cardiovascular: denies chest pain or angina. Integumentary: no dryness Musculoskeletal: denies musculoskeletal symptoms. ENMT: denies otolaryngeal symptoms. Respiratory: no shortness of breath. Heme/Lymph: denies easy bleeding tendency, denies easy bruising tendency. Psychiatric: no confusion, no anxiety. Genitourinary: See HPI. Physical Exam Vitals & Measurements T: 36.7 ?C(Temporal Artery) HR: 78(Peripheral) BP: 128/78 HT: 68 in HT: 173 cm WT: 84 kg WT: 184.8 lb BMI: 28.07 General Appearance: alert, no distress, well nourished, well developed male. Assessment/Plan 1. Right renal mass (N28.89: Other specified disorders of kidney and ureter) Renal US 10/12/22 - 3.6cm solid R renal mass and small L renal cysts with largest measuring 1.9cm Pt was to get MRI w/Con, Pt was unable to get MRI w/Con due to being in Stage 4 renal failure. Labs 12/29/22 - Crea 2.32 (0.70-1.30), GFR 27 (>=60). CT AP w/o Con 01/04/23 - 4.9cm Rt renal mass in the superior pole of the Rt kidney, as well as a 1cm to 0.6cm cyst versus mass projecting from mid and inferior aspect of the kidney, and a 1.9cm cyst in the Lt kidney MRI Abdomen w/o Con 01/15/23 - mixed T1/T2 signal mass measuring 4.6cm at the upper pole of the Rt kidney concerning in appearance for primary renal cell carcinoma, benign appearing hepatic and bilateral renal cysts, mild chronic background global atrophic changes of the kidneys w/o hydro, colonic diverticular disease noted incidentally. Discussed imaging findings with pt and , growth is concerning for kidney cancer and it is >3cm. Advised pt that if the mass was smaller, then we could monitor it, but due to the size, we will refer him to get a partial nephrectomy. Counseled pt on the risks and benefits of the procedure. Follow up after visit with [facility]. All questions/concerns were discussed. Pt to call the office if he encounters any issues prior. Pt acknowledges understanding. -Will refer pt to [facility]. 2. BPH (benign prostatic hyperplasia) (N40.0: Benign prostatic hyperplasia without lower urinary tract symptoms) Pt currently takes Tamsulosin 0.4mg QD. Did start taking Tamsulosin in the AM vs PM, still getting up 3x/night to void. Is awakened by the urge to void. Denies further urinary complaints. PSA 01/03/23 - 3.09 UA today is negative for blood and infection. Discussed PSA levels w/pt at prior OV. Follow-up With When Contact Information PA CHRIS, Christophe Sands, URL [facility] [address], [place] [address]- Additional Instructions: f/u with [facility] Patient Education Renal Mass I, Latasha Garcia , personally scribed for Dr. Winn on 01/19/2023 09:10:52. . Documentation recorded by the scribeLatasha, accurately reflects the services(s) I performed and decisions made by me. Problem List/Past Medical History Ongoing BPH (benign prostatic hyperplasia) CKD (chronic kidney disease) Diabetes Dyslipidemia Hypertension Right renal mass Secondary hyperparathyroidism Historical Vitamin D deficiency Procedure/Surgical History Tonsillectomy. Medications lisinopril 40 mg Tab montelukast 10 mg Tab omeprazole 40 mg Cap-DR, Oral, Daily Ozempic, SubCutaneous, qWeek tamsulosin 0.4 mg Cap Tresiba, SubCutaneous, Daily Allergies No Known Medication Allergies Social History Tobacco quit 1979 Tobacco Use:. Never Smokeless Tobacco Use:. Cigarettes, Stopped age 34 Years. Household tobacco concerns: No. Yes, 01/19/2023 Family History Lung cancer: Mother. Immunizations Vaccine Date Status influenza virus vaccine, inactivated 02/07/2022 Recorded SARS-CoV-2 (more content not included)... [facility] Comment on above: Result Comment: Elec tronically Signed By: Christophe WINN MD\.br\Date and Time Signed: 01/19/23 09:13 EDT\.br\Electronically Co-Signed By: Latasha Garcia\.br\Date and Time Co-Signed: 01/19/23 09:11 EDT RAD - MRI Reporton RAD - MRI Report [id number] :127 [facility] A1C HEMOGLOBINon 01-16-2023 HbA1c (Bld) [Mass fraction] 6.1 % [facility] [employer] Other Glucose - FINGER STICKon Glucose [Mass/Vol] 217 mg/dL [place] [employer] Other HbA1c (Bld) [Mass fraction]o n 01-16-2023 A1C HEMOGLOBIN Formerly [facility] [employer] Other Pre-Certification Formon Pre-Certification Form [id number] D:127 [facility] RAD - CT Reporton 01-09-2023 RAD - CT Report [id number] :127 [facility] Ambulatory Visit Summaryon 0 01-08-2023 Ambulatory Visit Summary AREVALOJOURDAN Buster :1945 Visit Date:01/08/2023 Ambulatory Visit Instructions Your Diagnosis Right renal mass BPH (benign prostatic hyperplasia) Tests Performed Urnls Dip Stick Auto w/o Microscopy POC 62083 MRI Abdomen w/o Contrast -- Results Pending -- Please visit your patient portal for your results or contact your primary care physician. Your Care Team Attending Physician - Christophe WINN MD Primary Care Physician - FRANCISCO SAWANT CNP This Is Your Medications List Contact prescribing physician if questions or concerns cholecalciferol (Vitamin D3) insulin degludec (Tresiba) lisinopril (lisinopril 40 mg Tab) montelukast (montelukast 10 mg Tab) omeprazole (omeprazole 40 mg Cap-DR) semaglutide (Ozempic) tamsulosin (tamsulosin 0.4 mg Cap) Procedures Performed Tonsillectomy. Discharge Vitals Heart Rate (Peripheral) 80 Respiratory Rate 16 Blood Pressure 132/79 Height 173 cm Height 68 in Weight 84 kg Weight 184.8 lb BMI 28.07 What to do next You Need to Schedule the Following Appointments Follow Up with PA CHRIS, ROBERTA Steve When: Where: [facility] [address], [place] [address] [phone] Medications What How Much When Instructions Unchanged cholecalciferol (Vitamin D3) Contact prescribing physician if questions or concerns Unchanged insulin degludec (Tresiba) Every day Contact prescribing physician if questions or concerns Unchanged lisinopril (lisinopril 40 mg Tab) Contact prescribing physician if questions or concerns Unchanged montelukast (montelukast 10 mg Tab) Contact prescribing physician if questions or concerns Unchanged omeprazole (omeprazole 40 mg Cap-DR) Every day Contact prescribing physician if questions or concerns Unchanged semaglutide (Ozempic) Every week Contact prescribing physician if questions or concerns Unchanged tamsulosin (tamsulosin 0.4 mg Cap) Contact prescribing physician if questions or concerns Test Results Urnls Dip Stick Auto w/o Microscopy POC 38545 (01/08/2023) Bilirubin Urine Dipstick - Negative Blood Urine Dipstick - Negative Glucose Urine Dipstick - Negative Ketones Urine Dipstick - Negative Leukocytes Urine Dipstick - Negative Nitrite Urine Dipstick - Negative Protein Urine Dipstick - 1+ (30 mg/dl) Specific [place] Urine Dipstick - 1.025 Urine Appearance Urine Dipstick - Clear Urine Color Urine Dipstick - Yellow Urobilinogen Urine Dipstick - Normal 0.2-1 EU/dl pH Urine Dipstick - 6 Allergies No Known Medication Allergies Problems Ongoing - Any problem that you are currently receiving treatment for. BPH (benign prostatic hyperplasia) CKD (chronic kidney disease) Diabetes Dyslipidemia Hypertension Right renal mass Secondary hyperparathyroidism Historical - Any problem that you are no longer receiving treatment for. Vitamin D deficiency [facility] Patient Educationon 01-09-20 23 Patient Education Urology Benign Prostatic Hyperplasia Benign prostatic hyperplasia (BPH) is an enlarged prostate gland that is caused by the normal aging process. The prostate may get bigger as a man gets older. The condition is not caused by cancer. The prostate is a walnut-sized gland that is involved in the production of semen. It is located in front of the rectum and below the bladder. The bladder stores urine. The urethra carries stored urine out of the body. An enlarged prostate can press on the urethra. This can make it harder to pass urine. The buildup of urine in the bladder can cause infection. Back pressure and infection may progress to bladder damage and kidney (renal) failure. What are the causes? This condition is part of the normal aging process. However, not all men develop problems from this condition. If the prostate enlarges away from the urethra, urine flow will not be blocked. If it enlarges toward the urethra and compresses it, there will be problems passing urine. What increases the risk? This condition is more likely to develop in men older than 50 years. What are the signs or symptoms? Symptoms of this condition include: ? Getting up often during the night to urinate. ? Needing to urinate frequently during the day. ? Difficulty starting urine flow. ? Decrease in size and strength of your urine stream. ? Leaking (dribbling) after urinating. ? Inability to pass urine. This needs immediate treatment. ? Inability to completely empty your bladder. ? Pain when you pass urine. This is more common if there is also an infection. ? Urinary tract infection (UTI). How is this diagnosed? This condition is diagnosed based on your medical history, a physical exam, and your symptoms. Tests will also be done, such as: ? A post-void bladder scan. This measures any amount of urine that may remain in your bladder after you finish urinating. ? A digital rectal exam. In a rectal exam, your health care provider checks your prostate by putting a lubricated, gloved finger into your rectum to feel the back of your prostate gland. This exam detects the size of your gland and any abnormal lumps or growths. ? An exam of your urine (urinalysis). ? A prostate specific antigen (PSA) screening. This is a blood test used to screen for prostate cancer. ? An ultrasound. This test uses sound waves to electronically produce a picture of your prostate gland. Your health care provider may refer you to a specialist in kidney and prostate diseases (urologist). How is this treated? Once symptoms begin, your health care provider will monitor your condition (active surveillance or watchful waiting). Treatment for this condition will depend on the severity of your condition. Treatment may include: ? Observation and yearly exams. This may be the only treatment needed if your condition and symptoms are mild. ? Medicines to relieve your symptoms, including: ? Medicines to shrink the prostate. ? Medicines to relax the muscle of the prostate. ? Surgery in severe cases. Surgery may include: ? Prostatectomy. In this procedure, the prostate tissue is removed completely through an open incision or with a laparoscope or robotics. ? Transurethral resection of the prostate (TURP). In this procedure, a tool is inserted through the opening at the tip of the penis (urethra). It is used to cut away tissue of the inner core of the prostate. The pieces are removed through the same opening of the penis. This removes the blockage. ? Transurethral incision (TUIP). In this procedure, small cuts are made in the prostate. This lessens the prostate's pressure on the urethra. ? Transurethral microwave thermotherapy (TUMT). This procedure uses microwaves to create heat. The heat destroys and removes a small amount of prostate tissue. ? Transurethral needle ablation (TUNA). This procedure uses radio frequencies to destroy and remove a small amount of prostate tissue. ? Interstitial laser coagulation (ILC). This procedure uses a laser to destroy and remove a small amount of prostate tissue. ? Transurethral electrovaporization (TUVP). This procedure uses electrodes to destroy and remove a small amount of prostate tissue. ? Prostatic urethral lift. This procedure inserts an implant to push the lobes of the prostate away from the urethra. Follow these instructions at home: ? Take crpx-uyq-bjjkbut and prescription medicines only as told by your health care provider. ? Monitor your symptoms for any changes. Contact your health care provider with any changes. ? Avoid drinking large amounts of liquid before going to bed or out in public. ? Avoid or reduce how much caffeine or alcohol you drink. ? Give yourself time when you urinate. ? Keep all follow-up visits. This is important. Contact a health care provider if: ? You have unexplained back pain. ? Your symptoms do not get better with treatment. ? You develop side effects from the medicine (more content not included)... [facility] Pre-Certification Formon Pre-Certification Form [id number] D:127 [facility] Urology Office/Clinic Noteon 01-08-2023 Urology Office/Clinic Note Chief Complaint Review CT & PSA HPI Staff 77 yo male here for f/u to CT ap w/o and PSA. (MRI originally ordered yet unable to perform due to creatinine levels) Previous DX: right renal mass, BPH. *Tamsulosin 0.4mg qd therapy. Current PSA done 01/03/23 is 3.09 Did start taking Tamsulosin in the AM vs PM, still getting up 3x/night to void. Is awakened bu the urge to void. Denies further urinary complaints. Here to discuss MRI & PSA results. History of Present Illness Tests reviewed: reviewed UA, CT, and PSA. I have reviewed the previous health record information and history for this patient from . I have reviewed and verified the staff HPI to be accurate for this encounter. There have been no associated fever, chills, flank pain, or blood in the urine. Denies any urinary infections since last encounter. Review of Systems PHQ Score Initial Depression Screen Score: 0 ROS - Provider Constitutional: denies weight loss, denies hot flashes. Eyes: denies eye problems. Gastrointestinal: denies nausea, denies vomiting. Cardiovascular: denies chest pain or angina. Integumentary: no dryness Musculoskeletal: denies musculoskeletal symptoms. ENMT: denies otolaryngeal symptoms. Respiratory: no shortness of breath. Heme/Lymph: denies easy bleeding tendency, denies easy bruising tendency. Psychiatric: no confusion, no anxiety. Genitourinary: See HPI. Physical Exam Vitals & Measurements HR: 80(Peripheral) RR: 16 BP: 132/79 HT: 68 in HT: 173 cm WT: 84 kg WT: 184.8 lb BMI: 28.07 General Appearance: alert, no distress, well nourished, well developed male. Genitourinary: normal scrotum, normal testes, normal urethra, normal epididymis, normal vas deferens/spermatic cord. Flank Pain: none. Bladder: nonpalpable. Assessment/Plan 1. Right renal mass (N28.89: Other specified disorders of kidney and ureter) Renal US 10/12/22 - 3.6cm solid R renal mass and small L renal cysts with largest measuring 1.9cm Pt was to get MRI w/Con, Pt was unable to get MRI w/Con due to being in Stage 4 renal failure. Labs 12/29/22 - Crea 2.32 (0.70-1.30), GFR 27 (>=60). CT AP w/o Con 01/04/23 - 4.9cm Rt renal mass in the superior pole of the Rt kidney, as well as a 1cm to 0.6cm cyst versus mass projecting from mid and inferior aspect of the kidney, and a 1.9cm cyst in the Lt kidney Discussed CT findings with pt and . Advised pt that we are unable to see enough detail by ct due to not being able to have IV dye due to pt being in stage 4 renal failure. Discussed getting a MRI of Abdomen w/o Con done. Pt does not have any hardware inside him. Discussed the next steps after the MRI of abdomen with pt and . -Will order a MRI of Abdomen w/o Con. 2. BPH (benign prostatic hyperplasia) (N40.0: Benign prostatic hyperplasia without lower urinary tract symptoms) Pt currently takes Tamsulosin 0.4mg QD. Did start taking Tamsulosin in the AM vs PM, still getting up 3x/night to void. Is awakened by the urge to void. Denies further urinary complaints. PSA 01/03/23 - 3.09 UA today is negative for blood and infection. Discussed PSA levels w/pt, slightly elevated. Discussed continuing to monitor levels. Pt states he would like to continue to monitor.. -Will continue to monitor PSA. Will order it at f/u appt. Follow-up With When Contact Information PA CHRIS, Christophe Sands, URL [facility] [address], [place] [address] [phone] Additional Instructions: after MRI of Abdomen wo Con Patient Education Benign Prostatic Hyperplasia I, Latasha Garcia , personally scribed for Dr. Winn on 01/08/2023 11:07:17. . Documentation recorded by the scribe, Latasha Garcia, accurately reflects the services(s) I performed and decisions made by me. Problem List/Past Medical History Ongoing BPH (benign prostatic hyperplasia) CKD (chronic kidney disease) Diabetes Dyslipidemia Hypertension Right renal mass Secondary hyperparathyroidism Historical Vitamin D deficiency Procedure/Surgical History Tonsillectomy. Medications lisinopril 40 mg Tab montelukast 10 mg Tab omeprazole 40 mg Cap-DR, Oral, Daily Ozempic, SubCutaneous, qWeek tamsulosin 0.4 mg Cap Tresiba, SubCutaneous, Daily Vitamin D3 Allergies No Known Medication Allergies Social History Tobacco Former smoker, quit more than 30 days ago Tobacco Use:. Never Smokeless Tobacco Use:. Cigarettes, Stopped age 34 Years. Household tobacco concerns: No. Yes, 01/08/2023 Family History Lung cancer: Mother. Immunizations Vaccine Date Status influenza virus vaccine, inactivated 02/07/2022 Recorded SARS-CoV-2 (COVID-19) mRNA BNT-162b2 vax 02/18/2021 Recorded pneumococcal 13-valent vaccine 02/15/2021 Recorded influenza virus vaccine, inactivated 02/15/2021 Recorded SARS-CoV-2 (COVID-19) mRNA BNT-162b2 vax 01/23/2021 Recorded influenza virus vaccine, inactivated 03/16 (more content not included)... [facility] Comment on above: Result Comment: Elec tronically Signed By: Christophe WINN MD\.br\Date and Time Signed: 01/08/23 11:10 EDT\.br\Electronically Co-Signed By: Latasha Garcia.br\Date and Time Co-Signed: 01/08/23 11:07 EDT Lab Reportson 01-04-2023 Lab Reports [id number] :127 [facility] Lab Reportson 01-01-2023 Lab Reports [id number] D:127 [facility] Physician Referralon 023 Physician Referral [id number] D:127 [facility] Ambulatory Visit Summaryon 12-18-2022 Ambulatory Visit Summary JOURDAN AREVALO :1945 Visit Date:12/18/2022 Ambulatory Visit Instructions Your Diagnosis Right renal mass BPH (benign prostatic hyperplasia) Tests Performed MRI Abdomen w/ + w/o Contrast -- Results Pending -- MRI Abdomen w/ Contrast -- Results Pending -- Please visit your patient portal for your results or contact your primary care physician. Your Care Team Attending Physician - Christophe WINN MD Primary Care Physician - SAVANA ALBERT, FRANCISCO Oconnell Referring Physician - NIKHIL CHRIS, SHASHANK This Is Your Medications List Contact prescribing physician if questions or concerns cholecalciferol (Vitamin D3) insulin degludec (Tresiba) lisinopril (lisinopril 40 mg Tab) montelukast (montelukast 10 mg Tab) omeprazole (omeprazole 40 mg Cap-DR) semaglutide (Ozempic) tamsulosin (tamsulosin 0.4 mg Cap) Procedures Performed Tonsillectomy. Discharge Vitals Heart Rate (Peripheral) 68 Respiratory Rate 16 Blood Pressure 130/74 Height 173 cm Height 68 in Weight 84 kg Weight 184.8 lb BMI 28.07 What to do next Scheduled Follow-Up Appointments Sunday 9:45 AM EDT With: Christophe WINN MD Where: [facility] Ambulatory Visit Summary JOURDAN AREVALO :1945 Visit Date:12/18/2022 Ambulatory Visit Instructions Your Diagnosis Right renal mass BPH (benign prostatic hyperplasia) Your Care Team Attending Physician - Christophe WINN MD Primary Care Physician - SAVANA ALBERT, FRANCISCO Oconnell Referring Physician - NIKHIL CHRIS, SHASHANK This Is Your Medications List Contact prescribing physician if questions or concerns cholecalciferol (Vitamin D3) insulin degludec (Tresiba) lisinopril (lisinopril 40 mg Tab) montelukast (montelukast 10 mg Tab) omeprazole (omeprazole 40 mg Cap-DR) semaglutide (Ozempic) tamsulosin (tamsulosin 0.4 mg Cap) Procedures Performed Tonsillectomy. Discharge Vitals Heart Rate (Peripheral) 68 Respiratory Rate 16 Blood Pressure 130/74 Height 173 cm Height 68 in Weight 84 kg Weight 184.8 lb BMI 28.07 What to do next You Need to Schedule the Following Appointments Follow Up with PA CHRIS, ROBERTA Steve When: Comments: 1 month to discuss MRI of kidney results Where: [facility] [address], [place] [address]- [phone] Medications What How Much When Instructions Unchanged cholecalciferol (Vitamin D3) Contact prescribing physician if questions or concerns Unchanged insulin degludec (Tresiba) Every day Contact prescribing physician if questions or concerns Unchanged lisinopril (lisinopril 40 mg Tab) Contact prescribing physician if questions or concerns Unchanged montelukast (montelukast 10 mg Tab) Contact prescribing physician if questions or concerns Unchanged omeprazole (omeprazole 40 mg Cap-DR) Every day Contact prescribing physician if questions or concerns Unchanged semaglutide (Ozempic) Every week Contact prescribing physician if questions or concerns Unchanged tamsulosin (tamsulosin 0.4 mg Cap) Contact prescribing physician if questions or concerns Allergies No Known Medication Allergies Problems Ongoing - Any problem that you are currently receiving treatment for. BPH (benign prostatic hyperplasia) CKD (chronic kidney disease) Diabetes Dyslipidemia Hypertension Right renal mass Secondary hyperparathyroidism Historical - Any problem that you are no longer receiving treatment for. Vitamin D deficiency Education Materials Magnetic Resonance Imaging Magnetic resonance imaging (MRI) is a painless test that produces detailed images of organs and tissues inside the body without using X-rays. During an MRI, strong magnets and radio waves work together to form images. MRI images may provide more details about a medical condition than X-rays, CT scans, and ultrasounds can provide. For a standard MRI, you will lie on a table that slides into a tunnel. In an open MRI, the tunnel will be open at the sides. In some cases, dye (contrast material) may be injected into your bloodstream to make the MRI images even clearer. Tell a health care provider about: ? Any allergies you have. ? All medicines you are taking, including vitamins, herbs, eye drops, creams, and xdjm-koi-hvipmbb medicines. ? Any surgeries you have had. ? Any medical conditions you have. ? Any metal you may have in your body. The magnets used in an MRI can cause metal objects in your body to move. Metal can also make it difficult to get clear images. Objects that may contain metal include: ? Any joint replacement (prosthesis), such as an artificial knee or hip. ? An implanted defibrillator, pacemaker, or neurostimulator. ? A metallic ear implant (cochlear implant). ? An artificial heart valve. ? A metallic object in the eye. ? Metal splinters. ? Bullet fragments. ? A port for delivering insulin or chemotherapy. ? Any tattoos you have. Some of the darker inks can cause problems with testing. ? Whether you are using a control implant such as an intrauterine device (IUD). ? Whether you are , may be , or are . ? Any fear of cramped spaces (claustrophobia). If this is a problem, it usually can be managed with medicines given prior to the MRI. What are the risks? Generally, this is a safe test. However, problems may occur, such as: ? If you have metal in your body and it is close to the area being tested, it may be hard to get high-quality images. ? If you are , you should avoid MRI tests during the first three months of . An MRI may affect an unborn baby. ? If dye is used: ? You may need to stop until the dye leaves your body naturally, if this applies. ? There is a risk of an allergic reaction to the dye. You can take medicines to prevent this reaction or to treat it if you have allergy symptoms. ? The dye can cause damage to your kidneys. Drinking plenty of water before and after the procedure can help prevent this problem. What happens before the procedure? ? You will be asked to remove all metal, including: ? (more content not included)... [facility] Patient Educationon 28-20 23 Patient Education Radiology Magnetic Resonance Imaging Magnetic resonance imaging (MRI) is a painless test that produces detailed images of organs and tissues inside the body without using X-rays. During an MRI, strong magnets and radio waves work together to form images. MRI images may provide more details about a medical condition than X-rays, CT scans, and ultrasounds can provide. For a standard MRI, you will lie on a table that slides into a tunnel. In an open MRI, the tunnel will be open at the sides. In some cases, dye (contrast material) may be injected into your bloodstream to make the MRI images even clearer. Tell a health care provider about: ? Any allergies you have. ? All medicines you are taking, including vitamins, herbs, eye drops, creams, and hrdv-slm-sknuonr medicines. ? Any surgeries you have had. ? Any medical conditions you have. ? Any metal you may have in your body. The magnets used in an MRI can cause metal objects in your body to move. Metal can also make it difficult to get clear images. Objects that may contain metal include: ? Any joint replacement (prosthesis), such as an artificial knee or hip. ? An implanted defibrillator, pacemaker, or neurostimulator. ? A metallic ear implant (cochlear implant). ? An artificial heart valve. ? A metallic object in the eye. ? Metal splinters. ? Bullet fragments. ? A port for delivering insulin or chemotherapy. ? Any tattoos you have. Some of the darker inks can cause problems with testing. ? Whether you are using a control implant such as an intrauterine device (IUD). ? Whether you are , may be , or are . ? Any fear of cramped spaces (claustrophobia). If this is a problem, it usually can be managed with medicines given prior to the MRI. What are the risks? Generally, this is a safe test. However, problems may occur, such as: ? If you have metal in your body and it is close to the area being tested, it may be hard to get high-quality images. ? If you are , you should avoid MRI tests during the first three months of . An MRI may affect an unborn baby. ? If dye is used: ? You may need to stop until the dye leaves your body naturally, if this applies. ? There is a risk of an allergic reaction to the dye. You can take medicines to prevent this reaction or to treat it if you have allergy symptoms. ? The dye can cause damage to your kidneys. Drinking plenty of water before and after the procedure can help prevent this problem. What happens before the procedure? ? You will be asked to remove all metal, including: ? A watch, jewelry (including jewelry in piercings), and other metal objects. ? Hearing aids. ? Dentures. ? An underwire bra. ? Makeup. Some makeup contains small amounts of metal. ? Braces and fillings are normally not a problem. ? If you are , ask your health care provider if you need to pump before your test. You may need to stop temporarily if dye will be used. What happens during the procedure? ? You may be given earplugs or headphones to listen to music. The MRI machine can be noisy. ? You will lie flat on your back on a long table. ? If dye will be used, an IV will be inserted into one of your veins. Dye will be injected into your IV and travel through your bloodstream. ? The table will slide into a tunnel that has magnets inside. When you are inside the tunnel, you will still be able to talk to your health care provider. ? You will be asked to lie very still while images are taken. Your health care provider will tell you when you can move. You may have to wait a few minutes to make sure that the images produced during the test are clear. ? When all images are produced, the table will slide out of the tunnel. The procedure can last from 30 minutes to over an hour. The procedure may vary among health care providers and hospitals. What can I expect after the procedure? ? You may be taken to a recovery area if sedation medicines were used. Your blood pressure, heart rate, breathing rate, and blood oxygen level will be monitored until you leave the hospital or clinic. ? If dye was used: ? It will leave your body through your urine within a day. You may be told to drink plenty of fluids to help flush the dye out of your system. ? Do not breastfeed your child until your health care provider says that this is safe. Follow these instructions at home: ? You may return to your normal activities right away, or as told by your health care provider. ? It is up to you to get your test results. Ask your health care provider, or the department that is doing the test, when your results will be ready. ? Keep all follow-up visits. This is important. Talk with your health care provider about what your test results mean. Summary ? Magnetic resonance imaging (MRI) is a painless test that produces detailed pictures of the inside of yo (more content not included)... Normal [facility] Glucose - [facility] Glucose [Mass/Vol] 200 mg/dL [facility] Other A1C HEMOGLOBINon 05-11-2022 HbA1c (Bld) [Mass fraction] 6.0 % [facility] Other Glucose - [facility]ING[facility] Glucose [Mass/Vol] 131 mg/dL [facility] Other HbA1c (Bld) [Mass fraction]o n 05-11-2022 A1C HEMOGLOBIN [facility] Other Glucose - FINGER [facility]on Glucose [Mass/Vol] 186 mg/dL [facility] Other A1C HEMOGLOBINon 11-10-2021 HbA1c (Bld) [Mass fraction] 5.9 % [facility] Other Glucose - [facility]ING[facility] Glucose [Mass/Vol] 141 mg/dL [facility] Other HbA1c (Bld) [Mass fraction]o n 11-10-2021 A1C HEMOGLOBIN [facility] Other A1C HEMOGLOBINon 04-28-2021 HbA1c (Bld) [Mass fraction] 6.2 % [facility] Other Glucose - [facility]ING[facility] Glucose [Mass/Vol] 114 mg/dL [facility] Other HbA1c (Bld) [Mass fraction]o n 04-28-2021 A1C HEMOGLOBIN [facility] Other A1C HEMOGLOBINon 01-12-2021 HbA1c (Bld) [Mass fraction] 6.3 % [facility] Other Glucose - FINGER [facility] Glucose [Mass/Vol] 189 mg/dL [facility] Other HbA1c (Bld) [Mass fraction]o n 01-12-2021 A1C HEMOGLOBIN [facility] Other Basic Metabolic Panelon 01-2 0 Anion gap [Moles/Vol] 10 mmol/L 9 - 17 mmol/L [facility] [place] Calcium [Mass/Vol] 8.4 mg/dL Low 8.6 - 10. 4 mg/dL [place] Chloride [Moles/Vol] 98 mmol/L 98 - 107 mmol/L [place] CO2 [Moles/Vol] 19 mmol/L Low 20 - 31 mmol/L [place] Creatinine [Mass/Vol] 1.64 mg/dL High 0.7 - 1.2 mg/dL [place] GFR 50 mL/min Low >60 [place] GFR Non- 41 mL/min Low >60 [place] GFR/1.73 sq M predicted among non-blacks MDRD (S/P/Bld) [Vol rate/Area] NOT REPORTED [place] GFR/1.73 sq M predicted among non-blacks MDRD (S/P/Bld) [Vol rate/Area] [place] Comment on above: Average GFR for 70 o r more years old: 75 mL/min/1.73sq m Chronic Kidney Disease: <60 mL/min/1.73sq m Kidney failure: <15 mL/min/1.73sq m eGFR calculated using average adult body mass. Additional eGFR calculator available at: http://www.[employer]/multiple_crcl_2012.htm Glucose [Mass/Vol] 375 mg/dL High 70 - 99 mg/dL [place] Interpretation and review of laboratory results Abnormal [place] Potassium [Moles/Vol] 5.1 mmol/L 3.7 - 5.3 mmol/L [place] Sodium [Moles/Vol] 127 mmol/L Low 135 - 144 mmol/L [place] Urea nitrogen [Mass/Vol] 31 mg/dL High 8 - 23 mg/dL [place] Basic Metabolic Profon 05-12 (cont.) Normal [facility] Comment on above: Result Comment: Aver age GFR for 70 or more years old: 75 mL/min/1.73sq m Chronic Kidney Disease: <60 mL/min/1.73sq m Kidney failure: <15 mL/min/1.73sq m eGFR calculated using average adult body mass. Additional eGFR calculator available at: http://www.[employer]/multiple_crcl_2012.htm Performed By: #### DARIAN Hutson #### [facility] [address] [facility] [place] [address] [employer] Operator: Danis Adrian DO Anion gap [Moles/Vol] 10 mmol/L Normal 9-17 [facility] Comment on above: Performed By: #### DARIAN Hutson #### [facility] [address] [facility] [place] [address] [employer] Operator: Danis Adrian DO Calcium [Mass/Vol] 8.4 mg/dL Low 8.6-10.4 [facility] Comment on above: Performed By: #### DARIAN Hutson #### [facility] [address] [facility] [place] [address] [employer] Grinder Operator: Danis Adrian DO Chloride [Moles/Vol] 98 mmol/L Normal 98-107 [facility] Comment on above: Performed By: #### DARIAN Hutson #### [facility] [facility] [place] [address] [employer]ar Grinder Operator: Danis Adrian DO CO2 [Moles/Vol] 19 mmol/L Low 20-31 [facility] Comment on above: Performed By: #### DARIAN Hutson #### [facility] [facility] [place] [address] [employer] Grinder Operator: Danis Adrian DO Creatinine [Mass/Vol] 1.64 mg/dL High 0.70-1.20 [facility] Comment on above: Performed By: #### DARIAN Hutson #### [facility] [address] [facility] [place] [address] [employer]ar Grinder Operator: Danis Adrian DO GFR, Amer 50 mL/min Low >60 [facility] Comment on above: Performed By: #### DARIAN Hutson #### [facility] [address] [place] [address] [employer] Grinder Operator: Danis Adrian DO GFR,non Amer 41 mL/min Low >60 [facility] Comment on above: Performed By: #### DARIAN Hutson #### [facility] [address] [place] [address] [employer] Grinder Operator: aDnis Adrian DO Glucose [Mass/Vol] 375 mg/dL High 70-99 [facility] Comment on above: Performed By: #### DARIAN Hutson #### [facility] [address] [place] [address] Shear Grinder Operator: Danis Adrian DO Potassium [Moles/Vol] 5.1 mmol/L Normal 3.7-5.3 [facility] Comment on above: Performed By: #### DARIAN Hutson #### [facility] [address] [place] [address] [employer]ar Grinder Operator: Danis Adrian DO Sodium [Moles/Vol] 127 mmol/L Low 135-144 [facility] Comment on above: Performed By: #### DARIAN Hutson #### [facility] [address] [place] [address] [employer] Grinder Operator: Danis Adrian DO Urea nitrogen [Mass/Vol] 31 mg/dL High 8-23 [facility] Comment on above: Performed By: #### DARIAN Hutson #### [facility] [address] [place] [address] [employer]ar Grinder Operator: Danis Adrian DO Staging: NOT REPORTED Normal [facility] Comment on above: Performed By: #### U Anamaria, DARIAN #### [facility] [address] [place] [address] [employer]ar Grinder Operator: Danis Adrian DO Bun/Cre Ratio NOT REPORTED Normal 9-20 [place], [place] Comment on above: Performed By: #### DARIAN Hutson #### [facility] [address] [place] [address] Shear Grinder Operator: Danis Adrian DO CBC Auto Differentialon 04-24 Basophils (Bld) [#/Vol] 0.00 10*3/uL [place] Basophils/100 WBC (Bld) 0 % 0 - 2 % [place] Differential Type NOT REPORTED [place] Eosinophils (Bld) [#/Vol] 0.00 10*3/uL [place] Eosinophils/100 WBC (Bld) 0 % 0 - 4 % [place] Erythrocyte distribution width (RBC) [Ratio] 13.3 % 11.5 - 14.9 % [place] Hematocrit (Bld) [Volume fraction] 34.2 % Low 41 - 53 % [place] Hemoglobin (Bld) [Mass/Vol] 11.3 g/dL Low 13.5 - 17.5 g/dL [place] Interpretation and review of laboratory results Abnormal [place] Lymphocytes (Bld) [#/Vol] 0.76 10*3/uL Low [place] Lymphocytes/100 WBC (Bld) 5 % Low 24 - 44 % [place] MCH (RBC) [Entitic mass] 28.5 pg 26 - 34 pg [place] MCHC (RBC) [Mass/Vol] 33.0 g/dL 31 - 37 g/dL [place] MCV (RBC) [Entitic vol] 86.3 fL 80 - 100 fL [place] Monocytes (Bld) [#/Vol] 1.66 10*3/uL [place] Monocytes/100 WBC (Bld) 11 % High 1 - 7 % [place] Morphology Jose Roberto (Bld) [Interp] Normal [place] Platelet mean volume (Bld) [Entitic vol] 10.1 fL 6 - 12 fL [place] Platelets (Bld) [#/Vol] 297 10*3/uL [place] RBC (Bld) [#/Vol] 3.96 10*6/uL Low 4.5 - 5.9 m/uL [place] Segmented neutrophils/100 WBC (Bld) 84 % High 36 - 66 % [place] Segs Absolute 12.68 High [place] WBC (Bld) [#/Vol] NOT REPORTED per 100 WBC [place] WBC (Bld) [#/Vol] 15.1 10*3/uL [place] CBC with Diffon 05-12-2020 Abs. Basophil 0.00 k/uL Normal 0.0-0.2 [facility] Comment on above: Performed By: #### DARIAN Hutson #### [facility] [address] [place] [address] [employer] Gr[employer] Operator: Danis Adrian DO Abs.Neutrophil (Seg) 12.68 k/uL High 1.3-9.1 [facility] Comment on above: Performed By: #### DARIAN Hutson #### [facility] [address] [place] [address] Shear Grinder Operator: Danis Adrian DO Basophils/100 WBC (Bld) 0 % Normal 0-2 [facility] Comment on above: Performed By: #### DARIAN Hutson #### [facility] [place] [address] Shear Grinder Operator: Danis Adrian DO Eosinophils (Bld) [#/Vol] 0.00 10*3/uL Normal 0.0-0.4 [facility] Comment on above: Performed By: #### DARIAN Hutson #### [facility] [address] [place] [address] Shear Grinder Operator: Danis Adrian DO Eosinophils/100 WBC (Bld) 0 % Normal 0-4 [facility] Comment on above: Performed By: #### DARIAN Hutson #### [facility] [address] [place] [address] [employer]ar Gr[employer] Operator: Danis Adrian DO Lymphocytes (Bld) [#/Vol] 0.76 10*3/uL Low 1.0-4.8 [facility] Comment on above: Performed By: #### DARIAN Hutson #### [facility] [place] [address] Shear Grinder Operator: Danis Adrian DO Lymphocytes/100 WBC (Bld) 5 % Low 24-44 [facility] Comment on above: Performed By: #### DARIAN Hutson #### [facility] [place] [address] Shear Grinder Operator: Danis Adrian DO Monocytes (Bld) [#/Vol] 1.66 10*3/uL High 0.1-1.3 [facility] Comment on above: Performed By: #### DARIAN Hutson #### [facility] [address] [place] [address] Shear Grinder Operator: Danis Adrian DO Monocytes/100 WBC (Bld) 11 % High 1-7 [facility] Comment on above: Performed By: #### DARIAN Hutson #### [facility] [address] [place] [address] Shear Grinder Operator: Danis Adrian DO Morphology Jose Roberto (Bld) [Interp] Normal Normal [facility] Comment on above: Performed By: #### DARIAN Hutson #### [facility] [place] [address] Shear Grinder Operator: Danis Adrian DO Neutrophil (Seg) 84 % High 36-66 [facility] Comment on above: Performed By: #### DARIAN Hutson #### [facility] [address] [place] [address] Shear Grinder Operator: Danis Adrian DO Erythrocyte distribution width (RBC) [Ratio] 13.3 % Normal 11.5-14.9 [facility] Comment on above: Performed By: #### DARIAN Hutson #### [facility] [address] [place] [address] Shear Grinder Operator: Danis Adrian DO Hematocrit (Bld) [Volume fraction] 34.2 % Low 41-53 [facility] Comment on above: Performed By: #### DARIAN Hutson #### [facility] [address] [place] [address] Shear Grinder Operator: Danis Adrian DO Hemoglobin (Bld) [Mass/Vol] 11.3 g/dL Low 13.5-17.5 [facility] Comment on above: Performed By: #### DARIAN Hutson #### [facility] [address] [place] [address] Shear Grinder Operator: Danis Adrian DO MCH (RBC) [Entitic mass] 28.5 pg Normal 26-34 [facility] Comment on above: Performed By: #### DARIAN Hutson #### [facility] [address] [place] [address] Shear Grinder Operator: Danis Adrian DO MCHC (RBC) [Mass/Vol] 33.0 g/dL Normal 31-37 [facility] Comment on above: Performed By: #### DARIAN Hutson #### [facility] [address] [place] [address] Shear Grinder Operator: Danis Adrian DO MCV (RBC) [Entitic vol] 86.3 fL Normal 80-100 [facility] Comment on above: Performed By: #### DARIAN Hutson #### [facility] [address] [place] [address] Shear Grinder Operator: Danis Adrian DO Platelet mean volume (Bld) [Entitic vol] 10.1 fL Normal 6.0-12.0 [facility] Comment on above: Performed By: #### DARIAN Hutson #### [facility] [place] [address] Shear Grinder Operator: Danis dArian DO Platelets (Bld) [#/Vol] 297 10*3/uL Normal 150-450 [facility] Comment on above: Performed By: #### DARIAN Hutson #### [facility] [place] [address] Shear Grinder Operator: Danis Adrian DO RBC (Bld) [#/Vol] 3.96 10*6/uL Low 4.5-5.9 [facility] Comment on above: Performed By: #### DARIAN Hutson #### [facility] [place] [address] Shear Grinder Operator: Danis Adrian DO WBC (Bld) [#/Vol] 15.1 10*3/uL High 3.5-11.0 [facility] Comment on above: Performed By: #### DARIAN Hutson #### [facility] [place] [address] Shear Grinder Operator: Danis Adrian DO Immature granulocytes (Bld) [#/Vol] NOT REPORTED Normal 0 [facility], [place] Comment on above: Performed By: #### DARIAN Hutson #### [facility] [address] [facility] [place] [address] Shear Grinder Operator: Danis Adrian DO Platelets (Bld) [#/Vol] NOT REPORTED Normal [facility], [place] Comment on above: Performed By: #### DARIAN Hutson #### [facility] [facility] [place] [address] Shear Grinder Operator: Danis Adrian DO RBC morphology finding Nom (Bld) NOT REPORTED Normal [place] Comment on above: Performed By: #### DARIAN Hutson #### [facility] [address] [place] [address] Shear Grinder Operator: Danis Adrian DO WBC Morphology NOT REPORTED Normal [place] Comment on above: Performed By: #### DARIAN Hutson #### [facility] [address] [place] [address]. [place] [address] Shear Grinder Operator: Danis Adrian DO Abs.Imm.Granulocyte NOT REPORTED Normal 0.00-0.30 [facility] Comment on above: Performed By: #### DARIAN Hutson #### [facility] [address] [place] [address]. [place] [address] Shear Grinder Operator: Danis Adrian DO Auto Diff Performed NOT REPORTED Normal [facility] Comment on above: Performed By: #### DARIAN Hutson #### [facility] [address] [place] [address] Shear Grinder Operator: Danis Adrian DO NRBC Automated NOT REPORTED Normal [facility] Comment on above: Performed By: #### DARIAN Hutson #### [facility] [address] [place] [address] Shear Grinder Operator: Danis Adrian DO BASIC METABOLIC PANELon 04-23 Anion gap [Moles/Vol] 8 mmol/L Low 9 - 17 mmol/L [place] Bun/Cre Ratio NOT REPORTED [place] Calcium [Mass/Vol] 8.7 mg/dL 8.6 - 10. 4 mg/dL [place] Chloride [Moles/Vol] 96 mmol/L Low 98 - 107 mmol/L [place] CO2 [Moles/Vol] 21 mmol/L 20 - 31 mmol/L [place] Creatinine [Mass/Vol] 1.48 mg/dL High 0.7 - 1.2 mg/dL [place] GFR 56 mL/min Low >60 [place] GFR Non- 46 mL/min Low >60 [place] GFR/1.73 sq M predicted among non-blacks MDRD (S/P/Bld) [Vol rate/Area] NOT REPORTED [place] GFR/1.73 sq M predicted among non-blacks MDRD (S/P/Bld) [Vol rate/Area] [place] Comment on above: Average GFR for 70 o r more years old: 75 mL/min/1.73sq m Chronic Kidney Disease: <60 mL/min/1.73sq m Kidney failure: <15 mL/min/1.73sq m eGFR calculated using average adult body mass. Additional eGFR calculator available at: http://www.[employer]/multiple_crcl_2012.htm Glucose [Mass/Vol] 240 mg/dL High 70 - 99 mg/dL [place] Interpretation and review of laboratory results Abnormal [place] Potassium [Moles/Vol] 4.5 mmol/L 3.7 - 5.3 mmol/L [place] Sodium [Moles/Vol] 125 mmol/L Low 135 - 144 mmol/L [place] Urea nitrogen [Mass/Vol] 56 mg/dL High 8 - 23 mg/dL [facility] [place] Basic Metabolic Profon 05-05 (cont.) Normal [facility] Comment on above: Result Comment: Aver age GFR for 70 or more years old: 75 mL/min/1.73sq m Chronic Kidney Disease: <60 mL/min/1.73sq m Kidney failure: <15 mL/min/1.73sq m eGFR calculated using average adult body mass. Additional eGFR calculator available at: http://www.[employer]/multiple_crcl_2012.htm Performed By: #### C DP, BMP, BNP, MG, TROPI #### [facility] [address] [facility] [place] [address] [employer] Grinder Operator: Danis Adrian DO Anion gap [Moles/Vol] 8 mmol/L Low 9-17 [facility] Comment on above: Performed By: #### C DP, BMP, BNP, MG, TROPI #### [facility] [address] [facility] [place] [address] [employer]inder Operator: Danis Adrian DO Calcium [Mass/Vol] 8.7 mg/dL Normal 8.6-10.4 [facility] Comment on above: Performed By: #### C DP, BMP, BNP, MG, TROPI #### [facility] [address] [facility] [place] [address] Shear Grinder Operator: Danis Adrian DO Chloride [Moles/Vol] 96 mmol/L Low 98-107 [facility] Comment on above: Performed By: #### C DP, BMP, BNP, MG, TROPI #### [facility] [address] [facility] [place] [address] [employer]ar Grinder Operator: Danis Adrian DO CO2 [Moles/Vol] 21 mmol/L Normal 20-31 [facility] Comment on above: Performed By: #### C DP, BMP, BNP, MG, TROPI #### [facility] [address] [facility] [place] [address] Shear Grinder Operator: Danis Adrian DO Creatinine [Mass/Vol] 1.48 mg/dL High 0.70-1.20 [facility] Comment on above: Performed By: #### C DP, BMP, BNP, MG, TROPI #### [facility] [address] [facility] [place] [address] Shear Grinder Operator: Danis Adrian DO GFR, Amer 56 mL/min Low >60 [facility] Comment on above: Performed By: #### C DP, BMP, BNP, MG, TROPI #### [facility] [address] [facility] [place] [address] Shear Grinder Operator: Danis Adrian DO GFR,non Amer 46 mL/min Low >60 [facility] Comment on above: Performed By: #### C DP, BMP, BNP, MG, TROPI #### [facility] [place] [address] Shear Grinder Operator: Danis Adrian DO Glucose [Mass/Vol] 240 mg/dL High 70-99 [facility] Comment on above: Performed By: #### C DP, BMP, BNP, MG, TROPI #### [facility] [address] [place] [address]. [place] [address] Shear Grinder Operator: Danis Adrian DO Potassium [Moles/Vol] 4.5 mmol/L Normal 3.7-5.3 [facility] Comment on above: Performed By: #### C DP, BMP, BNP, MG, TROPI #### [facility] [address] [facility] [place] [address] Shear Grinder Operator: Danis Adrian DO Sodium [Moles/Vol] 125 mmol/L Low 135-144 [facility] Comment on above: Performed By: #### C DP, BMP, BNP, MG, TROPI #### [facility] [address] [facility] [place] [address] Shear Grinder Operator: Danis Adrian DO Urea nitrogen [Mass/Vol] 56 mg/dL High 8-23 [facility] Comment on above: Performed By: #### C DP, BMP, BNP, MG, TROPI #### [facility] [address] [facility] [place] [address] Shear Grinder Operator: Danis Adrian DO BUN/CRE Ratio NOT REPORTED Normal 9-20 [facility] Comment on above: Performed By: #### C DP, BMP, BNP, MG, TROPI #### [facility] [address] [place] [address] Shear Grinder Operator: Danis Adrian DO Staging: NOT REPORTED Normal [facility] Comment on above: Performed By: #### C DP, BMP, BNP, MG, TROPI #### [facility] [facility] [place] [address] Shear Grinder Operator: Danis Adrian DO CBCon 05-05-2020 Erythrocyte distribution width (RBC) [Ratio] 13.0 % Normal 11.5-14.9 [facility] Comment on above: Performed By: #### C DP, BMP, BNP, MG, TROPI #### [facility] [facility] [place] [address] Shear Grinder Operator: Danis Adrian DO Hematocrit (Bld) [Volume fraction] 41.4 % Normal 41-53 [facility] Comment on above: Performed By: #### C DP, BMP, BNP, MG, TROPI #### [facility] [facility] [place] [address] Shear Grinder Operator: Danis Adrian DO Hemoglobin (Bld) [Mass/Vol] 13.8 g/dL Normal 13.5-17.5 [facility] Comment on above: Performed By: #### C DP, BMP, BNP, MG, TROPI #### [facility] [place] [address] Shear Grinder Operator: Danis Adrian DO MCH (RBC) [Entitic mass] 28.1 pg Normal 26-34 [facility] Comment on above: Performed By: #### C DP, BMP, BNP, MG, TROPI #### [facility] [place] [id number] [employer] Gr[employer] Operator: Danis Adrian DO MCHC (RBC) [Mass/Vol] 33.3 g/dL Normal 31-37 [facility] Comment on above: Performed By: #### C DP, BMP, BNP, MG, TROPI #### [facility] [address] [place] [address] [employer] Gr[employer] Operator: Danis Adrian DO MCV (RBC) [Entitic vol] 84.3 fL Normal 80-100 [facility] Comment on above: Performed By: #### C DP, BMP, BNP, MG, TROPI #### [facility] [address] [place] [address] Shear Grinder Operator: Danis Adrian DO Platelet mean volume (Bld) [Entitic vol] 8.5 fL Normal 6.0-12.0 [facility] Comment on above: Performed By: #### C DP, BMP, BNP, MG, TROPI #### [facility] [place] [address] Shear Grinder Operator: Danis Adrian DO Platelets (Bld) [#/Vol] 421 10*3/uL Normal 150-450 [facility] Comment on above: Performed By: #### C DP, BMP, BNP, MG, TROPI #### [facility] [address] [place] [address] Shear Gr[employer] Operator: Danis Adrian DO RBC (Bld) [#/Vol] 4.91 10*6/uL Normal 4.5-5.9 [facility] Comment on above: Performed By: #### C DP, BMP, BNP, MG, TROPI #### [facility] [address] [place] [address] Shear Grinder Operator: Danis Adrian DO WBC (Bld) [#/Vol] 28.3 10*3/uL High 3.5-11.0 [facility] Comment on above: Performed By: #### C DP, BMP, BNP, MG, TROPI #### [facility] [address] [place] [address] Shear Grinder Operator: Danis Adrian DO NRBC Automated NOT REPORTED Normal [facility] Comment on above: Performed By: #### C DP, BMP, BNP, MG, TROPI #### [facility] [address] [place] [address] Shear Grinder Operator: Danis Adrian DO Erythrocyte distribution width (RBC) [Ratio] 13.0 % 11.5 - 14.9 % [place] Hematocrit (Bld) [Volume fraction] 41.4 % 41 - 53 % [place] Hemoglobin (Bld) [Mass/Vol] 13.8 g/dL 13.5 - 17.5 g/dL [place] Interpretation and review of laboratory results Abnormal [place] MCH (RBC) [Entitic mass] 28.1 pg 26 - 34 pg [place] MCHC (RBC) [Mass/Vol] 33.3 g/dL 31 - 37 g/dL [place] MCV (RBC) [Entitic vol] 84.3 fL 80 - 100 fL [place] Platelet mean volume (Bld) [Entitic vol] 8.5 fL 6 - 12 fL [place] Platelets (Bld) [#/Vol] 421 10*3/uL [place] RBC (Bld) [#/Vol] 4.91 10*6/uL 4.5 - 5.9 m/uL [place] WBC (Bld) [#/Vol] NOT REPORTED per 100 WBC [place] WBC (Bld) [#/Vol] 28.3 10*3/uL High [place] Electrolyte Panel w/ Reflex to MGon 05-05-2020 Anion gap [Moles/Vol] 14 mmol/L 9 - 17 mmol/L [place] Chloride [Moles/Vol] 93 mmol/L Low 98 - 107 mmol/L [place] CO2 [Moles/Vol] 21 mmol/L 20 - 31 mmol/L [place] Interpretation and review of laboratory results Abnormal [place] Potassium [Moles/Vol] 4.5 mmol/L 3.7 - 5.3 mmol/L [place] Sodium [Moles/Vol] 128 mmol/L Low 135 - 144 mmol/L [place] Electrolytes urine randomon 05-05-2020 Chloride, Ur <20 mmol/L [place] Comment on above: No normal range esta blished. Potassium, Ur 30.1 mmol/L [place] Comment on above: No normal range esta blished. Sodium (U) [Moles/Vol] 24 mmol/L [place] Comment on above: No normal range esta blished. Electrolytes w/rfx MGon 04-23 Anion gap [Moles/Vol] 14 mmol/L Normal -17 [facility] Comment on above: Performed By: #### DARIAN Hutson #### [facility] [address] [facility] [place] [address] Shear Grinder Operator: Danis Adrian DO Chloride [Moles/Vol] 93 mmol/L Low 98-107 [facility] Comment on above: Performed By: #### U DARIAN Conrad #### [facility] [address] [place] [address] Shear Grinder Operator: Danis Adrian DO CO2 [Moles/Vol] 21 mmol/L Normal 20-31 [facility] Comment on above: Performed By: #### DARIAN Hutson #### [facility] [place] [address] Shear Grinder Operator: Danis Adrian DO Potassium [Moles/Vol] 4.5 mmol/L Normal 3.7-5.3 [facility] Comment on above: Performed By: #### DARIAN Hutson #### [facility] [address] [place] [address] She[employer] Grinder Operator: Danis Adrian DO Sodium [Moles/Vol] 128 mmol/L Low 135-144 [facility] Comment on above: Performed By: #### DARIAN Hutson #### [facility] [address] [place] [id number] She[employer] Grinder Operator: Danis Adrian DO Electrolytes,Macon Uron 05-05 Cl Conc. <20 Normal [facility] Comment on above: Result Comment: No n ormal range established. Performed By: #### C DP, BMP, BNP, MG, TROPI #### [facility] [address] [place] [address] She[employer] Gr[employer] Operator: Danis Adrian DO K Conc. 30.1 mmol/L Normal [facility] Comment on above: Result Comment: No n ormal range established. Performed By: #### C DP, BMP, BNP, MG, TROPI #### [facility] [address] [place] [address] She[employer] Gr[employer] Operator: Danis Adrian DO Na Conc. Urine 24 mmol/L Normal [facility] Comment on above: Result Comment: No n ormal range established. Performed By: #### C DP, BMP, BNP, MG, TROPI #### [facility] [address] [place] [address] Shear Grinder Operator: Danis Adrian DO Magnesiumon 05-05-2020 Magnesium [Mass/Vol] 2.2 mg/dL Normal 1.6-2.6 [facility] Comment on above: Performed By: #### C DP, BMP, BNP, MG, TROPI #### [facility] [address] [place] [address] [employer] Gr[employer] Operator: Danis Adrian DO Magnesium [Mass/Vol] 2.2 mg/dL 1.6 - 2.6 mg/dL [place] OSMOLALITY, URINEon 05-05-19 21 Osmolality (U) [Osmolality] 634 [place] Osmolality, Urineon 05-05-19 21 Osmolality - Urine 634 mOsm/kg Normal 80-1300 [facility] Comment on above: Performed By: #### C DP, BMP, BNP, MG, TROPI #### [facility] [address] [place] [address] Shear Grinder Operator: Danis Adrian DO POC Glucose Fingerstickon Glucose [Mass/Vol] 346 mg/dL High 75 - 110 mg/dL [place] Interpretation and review of laboratory results Abnormal [place] Glucose [Mass/Vol] 257 mg/dL High 75 - 110 mg/dL [place] Interpretation and review of laboratory results Abnormal [place] BASIC METABOLIC PANELon 04-23 Anion gap [Moles/Vol] 10 mmol/L 9 - 17 mmol/L [place] Bun/Cre Ratio NOT REPORTED [place] Calcium [Mass/Vol] 8.5 mg/dL Low 8.6 - 10. 4 mg/dL [place] Chloride [Moles/Vol] 94 mmol/L Low 98 - 107 mmol/L [place] CO2 [Moles/Vol] 21 mmol/L 20 - 31 mmol/L [place] Creatinine [Mass/Vol] 1.68 mg/dL High 0.7 - 1.2 mg/dL [place] GFR 48 mL/min Low >60 [place] GFR Non- 40 mL/min Low >60 [place] GFR/1.73 sq M predicted among non-blacks MDRD (S/P/Bld) [Vol rate/Area] [place] Comment on above: Average GFR for 70 o r more years old: 75 mL/min/1.73sq m Chronic Kidney Disease: <60 mL/min/1.73sq m Kidney failure: <15 mL/min/1.73sq m eGFR calculated using average adult body mass. Additional eGFR calculator available at: http://www.[employer]/multiple_crcl_2011.htm GFR/1.73 sq M predicted among non-blacks MDRD (S/P/Bld) [Vol rate/Area] NOT REPORTED [place] Glucose [Mass/Vol] 271 mg/dL High 70 - 99 mg/dL [place] Potassium [Moles/Vol] 4.8 mmol/L 3.7 - 5.3 mmol/L [place] Sodium [Moles/Vol] 125 mmol/L Low 135 - 144 mmol/L [place] Urea nitrogen [Mass/Vol] 46 mg/dL High 8 - 23 mg/dL [place] Basic Metabolic Profon 05-04 (cont.) Normal [facility] Comment on above: Result Comment: Aver age GFR for 70 or more years old: 75 mL/min/1.73sq m Chronic Kidney Disease: <60 mL/min/1.73sq m Kidney failure: <15 mL/min/1.73sq m eGFR calculated using average adult body mass. Additional eGFR calculator available at: http://www.[employer]/multiple_crcl_2011.htm Performed By: #### DARIAN Hutson #### [facility] [address] [place] [address] [employer] Grinder Operator: Danis Adrian DO Anion gap [Moles/Vol] 10 mmol/L Normal 9-17 [facility] Comment on above: Performed By: #### DARIAN Hutson #### [facility] [address] [place] [address] [employer] Gr[employer] Operator: Danis Adrian DO Calcium [Mass/Vol] 8.5 mg/dL Low 8.6-10.4 [facility] Comment on above: Performed By: #### DARIAN Hutson #### [facility] [address] [facility] [place] [address] Shear Grinder Operator: Danis Adrian DO Chloride [Moles/Vol] 94 mmol/L Low 98-107 [facility] Comment on above: Performed By: #### DARIAN Hutson #### [facility] [address] [facility] [place] [address] [employer] Grinder Operator: Danis Adrian DO CO2 [Moles/Vol] 21 mmol/L Normal 20-31 [facility] Comment on above: Performed By: #### DARIAN Hutson #### [facility] [address] [facility] [place] [address] [employer]ar Grinder Operator: Danis Adrian DO Creatinine [Mass/Vol] 1.68 mg/dL High 0.70-1.20 [facility] Comment on above: Performed By: #### DARIAN Hutson #### [facility] [address] [place] [address] Shear Grinder Operator: Danis Adrian DO GFR, Amer 48 mL/min Low >60 [facility] Comment on above: Performed By: #### DARIAN Hutson #### [facility] [address] [place] [address] Shear Grinder Operator: Danis Adrian DO GFR,non Amer 40 mL/min Low >60 [facility] Comment on above: Performed By: #### DARIAN Hutson #### [facility] [address] [place] [address] [employer]ar Grinder Operator: Danis Adrian DO Glucose [Mass/Vol] 271 mg/dL High 70-99 [facility] Comment on above: Performed By: #### DARIAN Hutson #### [facility] [address] [place] [address] Shear Grinder Operator: Danis Adrian DO Potassium [Moles/Vol] 4.8 mmol/L Normal 3.7-5.3 [facility] Comment on above: Performed By: #### DARIAN Hutson #### [facility] [address] [place] [address] Shear Grinder Operator: Danis Adrian DO Sodium [Moles/Vol] 125 mmol/L Low 135-144 [facility] Comment on above: Performed By: #### DARIAN Hutson #### [facility] [place] [address] Shear Grinder Operator: Danis Adrian DO Urea nitrogen [Mass/Vol] 46 mg/dL High 8-23 [facility] Comment on above: Performed By: #### DARIAN Hutson #### [facility] [place] [address] Shear Grinder Operator: Danis Adrian DO BUN/CRE Ratio NOT REPORTED Normal 9-20 [facility] Comment on above: Performed By: #### DARIAN Hutson #### [facility] [address] [facility] [place] [address] Shear Grinder Operator: Danis Adrian DO Staging: NOT REPORTED Normal [facility] Comment on above: Performed By: #### DARIAN Hutson #### [facility] [address] [facility] [place] [address] Shear Grinder Operator: Danis Adrian DO C-Reactive Proteinon CRP [Mass/Vol] 7.2 mg/L High 0.0-5.0 [facility] Comment on above: Performed By: #### DARIAN Hutson #### [facility] [address] [place] [address] Shear Grinder Operator: Danis Adrian DO CRP [Mass/Vol] 7.2 mg/L High 0 - 5 mg/L [place] CBCon 05-04-2020 Erythrocyte distribution width (RBC) [Ratio] 13.0 % Normal 11.5-14.9 [facility] Comment on above: Performed By: #### DARIAN Hutson #### [facility] [address] [facility] [place] [address] Shear Grinder Operator: Danis Adrian DO Hematocrit (Bld) [Volume fraction] 41.0 % Normal 41-53 [facility] Comment on above: Performed By: #### DARIAN Hutson #### [facility] [facility] [place] [address] Shear Grinder Operator: Danis Adrian DO Hemoglobin (Bld) [Mass/Vol] 13.6 g/dL Normal 13.5-17.5 [facility] Comment on above: Performed By: #### DARIAN Hutson #### [facility] [facility] [place] [address] Shear Grinder Operator: Danis Adrian DO MCH (RBC) [Entitic mass] 27.9 pg Normal 26-34 [facility] Comment on above: Performed By: #### DARIAN Hutson #### [facility] [place] [address] Shear Grinder Operator: Danis Adrian DO MCHC (RBC) [Mass/Vol] 33.2 g/dL Normal 31-37 [facility] Comment on above: Performed By: #### DARIAN Hutson #### [facility] [address] [place] [address] Shear Grinder Operator: Danis Adrian DO MCV (RBC) [Entitic vol] 84.3 fL Normal 80-100 [facility] Comment on above: Performed By: #### DARIAN Hutson #### [facility] [address] [place] [address] Shear Grinder Operator: Danis Adrian DO Platelet mean volume (Bld) [Entitic vol] 8.3 fL Normal 6.0-12.0 [facility] Comment on above: Performed By: #### DARIAN Hutson #### [facility] [address] [place] [address] Shear Grinder Operator: Danis Adrian DO Platelets (Bld) [#/Vol] 380 10*3/uL Normal 150-450 [facility] Comment on above: Performed By: #### DARIAN Hutson #### [facility] [address] [place] [address] Shear Grinder Operator: Danis Adrian DO RBC (Bld) [#/Vol] 4.86 10*6/uL Normal 4.5-5.9 [facility] Comment on above: Performed By: #### DARIAN Hutson #### [facility] [address] [place] [address] Shear Grinder Operator: Danis Adrian DO WBC (Bld) [#/Vol] 25.6 10*3/uL High 3.5-11.0 [facility] Comment on above: Performed By: #### DARIAN Hutson #### [facility] [address] [place] [address] Shear Grinder Operator: Danis Adrian DO NRBC Automated NOT REPORTED Normal [facility] Comment on above: Performed By: #### U A, DARIAN #### [facility] [address] [place] [address] Shear Grinder Operator: Danis Adrian DO Erythrocyte distribution width (RBC) [Ratio] 13.0 % 11.5 - 14.9 % [place] Hematocrit (Bld) [Volume fraction] 41.0 % 41 - 53 % [place] Hemoglobin (Bld) [Mass/Vol] 13.6 g/dL 13.5 - 17.5 g/dL [place] Interpretation and review of laboratory results Abnormal [place] MCH (RBC) [Entitic mass] 27.9 pg 26 - 34 pg [place] MCHC (RBC) [Mass/Vol] 33.2 g/dL 31 - 37 g/dL [place] MCV (RBC) [Entitic vol] 84.3 fL 80 - 100 fL [place] Platelet mean volume (Bld) [Entitic vol] 8.3 fL 6 - 12 fL [place] Platelets (Bld) [#/Vol] 380 10*3/uL [place] RBC (Bld) [#/Vol] 4.86 10*6/uL 4.5 - 5.9 m/uL [place] WBC (Bld) [#/Vol] NOT REPORTED per 100 WBC [place] WBC (Bld) [#/Vol] 25.6 10*3/uL High [place] Cult,Respiratoryon Cult,Respiratory Specimen Description .EXPECTORATED SPUTUM Special Requests NOT REPORTED Direct Exam < 10 EPITHELIAL CELLS/LPF <10 NEUTROPHILS/LPF FEW YEAST WITH PSEUDOHYPHAE SEEN Culture PRESUMPTIVE GEGE ALBICANS MODERATE GROWTH NORMAL RESPIRATORY KARTHIK LIGHT GROWTH Report Status FINAL 05/04/2020 Normal [facility] Comment on above: Performed By: #### Kia Conrad, DARIAN #### [facility] [address] [facility] [place], [place] [id number] She[employer] Grinder Operator: Danis Adrian DO D-Dimer Teston 05-04-2020 D-Dimer Test 0.63 mg/L FEU High 0.00-0.59 [facility] Comment on above: Result Comment: When combined with a low clinical probability, a D dimer value of <0.50 mg/L FEU is considered negative for DVT and PE (negative predictive value of 98%, sensitivity of 97%). If this test is not being used to help rule out DVT and PE, then the following reference range should be utilized: 0.00 - 0.59 mg/L FEU. The D-Dimer assay is intended for use as an aid in the diagnosis of venous thromboembolism (DVT and PE) and the results should be interpreted in conjunction with the patient's medical history, clinical presentation, and other findings. Elevated levels of D-dimer activity can be seen in any state of coagulation activation and is not recommended in patients with therapeutic dose anticoagulant therapy for >24 hours, fibrinolytic therapy within the previous 7 days, trauma or surgery within the previous 4 weeks, disseminated malignancies, aortic aneurysm, sepsis, severe infections, pneumonia, severe skin infections, liver cirrhosis, advanced age, coronary disease, diabetes, and . A very low percentage of patients with DVT may yield D-dimer results below the cutoff of 0.5 mg/L FEU. This is known to be more prevalent in patients with distal DVT. Performed By: #### DARIAN Hutson #### [facility] [address] [facility] [place] [address] Shear Grinder Operator: Danis Adrian DO D-Dimer, Quantitativeon 04-23 D-Dimer, Quant 0.63 High [facility], [place] Comment on above: When combined with a low clinical probability, a D dimer value of <0.50 mg/L FEU is considered negative for DVT and PE (negative predictive value of 98%, sensitivity of 97%). If this test is not being used to help rule out DVT and PE, then the following reference range should be utilized: 0.00 - 0.59 mg/L FEU. The D-Dimer assay is intended for use as an aid in the diagnosis of venous thromboembolism (DVT and PE) and the results should be interpreted in conjunction with the patient's medical history, clinical presentation, and other findings. Elevated levels of D-dimer activity can be seen in any state of coagulation activation and is not recommended in patients with therapeutic dose anticoagulant therapy for >24 hours, fibrinolytic therapy within the previous 7 days, trauma or surgery within the previous 4 weeks, disseminated malignancies, aortic aneurysm, sepsis, severe infections, pneumonia, severe skin infections, liver cirrhosis, advanced age, coronary disease, diabetes, and . A very low percentage of patients with DVT may yield D-dimer results below the cutoff of 0.5 mg/L FEU. This is known to be more prevalent in patients with distal DVT. Interpretation and review of laboratory results Abnormal [place] Ferritinon 05-04-2020 Ferritin [Mass/Vol] 933 ug/L High 30-400 [facility] Comment on above: Performed By: #### DARIAN Hutson #### [facility] [address] [facility] [place] [address] Shear Grinder Operator: Danis Adrian DO Ferritin [Mass/Vol] 933 ug/L High 30 - 400 ug/L [place] Interpretation and review of laboratory results Abnormal [place] Lactate Dehydrogenaseon 04-23 LDH [Catalytic activity/Vol] 339 U/L High 135-225 [facility] Comment on above: Performed By: #### DARIAN Hutson #### [facility] [address] [facility] [place] [address] Shear Grinder Operator: Danis Adrian DO Interpretation and review of laboratory results Abnormal [place], [place] LD 339 U/L High 135 - 225 U/L [place] Magnesiumon 05-04-2020 Magnesium [Mass/Vol] 2.3 mg/dL Normal 1.6-2.6 [facility] Comment on above: Performed By: #### DARIAN Hutson #### [facility] [address] [place] [address] Shear Grinder Operator: Danis Adrian DO Magnesium [Mass/Vol] 2.3 mg/dL 1.6 - 2.6 mg/dL [place] NA (Sodium)on 05-04-2020 Sodium [Moles/Vol] 122 mmol/L Low 135-144 [facility] Comment on above: Performed By: #### C DP, BMP, BNP, MG, TROPI #### [facility] [address] [place] [address] Shear Grinder Operator: Danis Adrian DO Interpretation and review of laboratory results Abnormal [place] Sodium [Moles/Vol] 122 mmol/L Low 135 - 144 mmol/L [place] Otheron 05-04-2020 Interpretation and review of laboratory results Abnormal [place] POC Glucose Fingerstickon Glucose [Mass/Vol] 475 mg/dL Critically high 75 - 1 10 mg/dL [place] Comment on above: Critical Noted Interpretation and review of laboratory results Abnormal [place] Glucose [Mass/Vol] 387 mg/dL High 75 - 110 mg/dL [place] Interpretation and review of laboratory results Abnormal [place] Glucose [Mass/Vol] 294 mg/dL High 75 - 110 mg/dL [place] Interpretation and review of laboratory results Abnormal [place] Procalcitoninon 05-04-2020 Procalcitonin 0.11 ng/mL High <0.09 [facility] Comment on above: Result Comment: Suspected Sepsis: <0.50 ng/mL Low likelihood of sepsis. 0.50-2.00 ng/mL Increased likelihood of sepsis. Antibiotics encouraged. >2.00 ng/mL High risk of sepsis/shock. Antibiotics strongly encouraged. Suspected Lower Resp Tract Infections: <0.24 ng/mL Low likelihood of bacterial infection. >0.24 ng/mL Increased likelihood of bacterial infection. Antibiotics encouraged. With successful antibiotic therapy, PCT levels should decrease rapidly. (Half-life of 24 to 36 hours.) Procalcitonin values from samples collected within the first 6 hours of systemic infection may still be low. Retesting may be indicated. Values from day 1 and day 4 can be entered into the Change in Procalcitonin Calculator (www.pnwtef-yqf-sseciqiijg.[employer]) to determine the patient's Mortality Risk Prognosis In healthy neonates, plasma Procalcitonin (PCT) concentrations increase gradually after , reaching peak values at about 24 hours of age then decrease to normal values below 0.5 ng/mL by 48-72 hours of age. Performed By: #### U A, DARIAN #### [facility] [address] [place] [address] Shear Grinder Operator: Danis Adrian DO Interpretation and review of laboratory results Abnormal [place] Procalcitonin 0.11 ng/mL High <0.09 [facility], [place] Comment on above: Suspected Sepsis: <0.50 ng/mL Low likelihood of sepsis. 0.50-2.00 ng/mL Increased likelihood of sepsis. Antibiotics encouraged. >2.00 ng/mL High risk of sepsis/shock. Antibiotics strongly encouraged. Suspected Lower Resp Tract Infections: <0.24 ng/mL Low likelihood of bacterial infection. >0.24 ng/mL Increased likelihood of bacterial infection. Antibiotics encouraged. With successful antibiotic therapy, PCT levels should decrease rapidly. (Half-life of 24 to 36 hours.) Procalcitonin values from samples collected within the first 6 hours of systemic infection may still be low. Retesting may be indicated. Values from day 1 and day 4 can be entered into the Change in Procalcitonin Calculator (www.zxbysc-plm-kbureeadwg.[employer]base) to determine the patient's Mortality Risk Prognosis In healthy neonates, plasma Procalcitonin (PCT) concentrations increase gradually after , reaching peak values at about 24 hours of age then decrease to normal values below 0.5 ng/mL by 48-72 hours of age. Respiratory Cultureon 2020 Culture NORMAL RESPIRATORY KARTHIK LIGHT GROWTH [facility], [place] Culture PRESUMPTIVE GEGE ALBICANS MODERATE GROWTH Abnormal [place] Direct Exam FEW YEAST WITH PSEUDOHYPHAE SEEN Abnormal [place] Direct Exam <10 NEUTROPHILS/LPF [place] Direct Exam < 10 EPITHELIAL CELLS/LPF [place] Interpretation and review of laboratory results Abnormal [place] Special Requests NOT REPORTED [place] Specimen Description .EXPECTORATED SPUTUM [place] BASIC METABOLIC PANELon 04-23 Anion gap [Moles/Vol] 11 mmol/L 9 - 17 mmol/L [place] Bun/Cre Ratio NOT REPORTED [place], [place] Calcium [Mass/Vol] 8.3 mg/dL Low 8.6 - 10. 4 mg/dL [place] Chloride [Moles/Vol] 98 mmol/L 98 - 107 mmol/L [place] CO2 [Moles/Vol] 21 mmol/L 20 - 31 mmol/L [place] Creatinine [Mass/Vol] 1.43 mg/dL High 0.7 - 1.2 mg/dL [place] GFR 58 mL/min Low >60 [place] GFR Non- 48 mL/min Low >60 [place] GFR/1.73 sq M predicted among non-blacks MDRD (S/P/Bld) [Vol rate/Area] NOT REPORTED [place] GFR/1.73 sq M predicted among non-blacks MDRD (S/P/Bld) [Vol rate/Area] [place] Comment on above: Average GFR for 70 o r more years old: 75 mL/min/1.73sq m Chronic Kidney Disease: <60 mL/min/1.73sq m Kidney failure: <15 mL/min/1.73sq m eGFR calculated using average adult body mass. Additional eGFR calculator available at: http://www.[employer]/multiple_crcl_2012.htm Glucose [Mass/Vol] 219 mg/dL High 70 - 99 mg/dL [place] Interpretation and review of laboratory results Abnormal [place] Potassium [Moles/Vol] 4.8 mmol/L 3.7 - 5.3 mmol/L [place] Sodium [Moles/Vol] 130 mmol/L Low 135 - 144 mmol/L [place] Urea nitrogen [Mass/Vol] 48 mg/dL High 8 - 23 mg/dL [place] Basic Metabolic Profon 05-03 (cont.) Normal [facility] Comment on above: Result Comment: Aver age GFR for 70 or more years old: 75 mL/min/1.73sq m Chronic Kidney Disease: <60 mL/min/1.73sq m Kidney failure: <15 mL/min/1.73sq m eGFR calculated using average adult body mass. Additional eGFR calculator available at: http://www.[employer]/multiple_crcl_2011.htm Performed By: #### N A #### [facility] [address] [place] [address] Shear Grinder Operator: Danis Adrian DO Anion gap [Moles/Vol] 11 mmol/L Normal 9-17 [facility] Comment on above: Performed By: #### N A #### [facility] [address] [place] [address] Shear Grinder Operator: Danis Adrian DO Calcium [Mass/Vol] 8.3 mg/dL Low 8.6-10.4 [facility] Comment on above: Performed By: #### N A #### [facility] [address] [facility] [place] [address] Shear Grinder Operator: Danis Adrian DO Chloride [Moles/Vol] 98 mmol/L Normal 98-107 [facility] Comment on above: Performed By: #### N A #### [facility] [address] [facility] [place] [address] Shear Grinder Operator: Danis Adrian DO CO2 [Moles/Vol] 21 mmol/L Normal 20-31 [facility] Comment on above: Performed By: #### N A #### [facility] [address] [facility] [place] [address] Shear Grinder Operator: Danis Adrian DO Creatinine [Mass/Vol] 1.43 mg/dL High 0.70-1.20 [facility] Comment on above: Performed By: #### N A #### [facility] [address] [place] [address] Shear Grinder Operator: Danis Adrian DO GFR, Amer 58 mL/min Low >60 [facility] Comment on above: Performed By: #### N A #### [facility] [place] [address] Shear Grinder Operator: Danis Adrian DO GFR,non Amer 48 mL/min Low >60 [facility] Comment on above: Performed By: #### N A #### [facility] [place] [address] Shear Grinder Operator: Danis Adrian DO Glucose [Mass/Vol] 219 mg/dL High 70-99 [facility] Comment on above: Performed By: #### N A #### [facility] [place] [address] Shear Grinder Operator: Danis Adrian DO Potassium [Moles/Vol] 4.8 mmol/L Normal 3.7-5.3 [facility] Comment on above: Performed By: #### N A #### [facility] [place] [address] Shear Grinder Operator: Danis Adrian DO Sodium [Moles/Vol] 130 mmol/L Low 135-144 [facility] Comment on above: Performed By: #### N A #### [facility] [place] [address] Shear Grinder Operator: Danis Adrian DO Urea nitrogen [Mass/Vol] 48 mg/dL High 8-23 [facility] Comment on above: Performed By: #### N A #### [facility] [address] [place] [address] Shear Grinder Operator: Danis Adrian DO BUN/CRE Ratio NOT REPORTED Normal 9-20 [facility] Comment on above: Performed By: #### N A #### [facility] [place] [address] Shear Grinder Operator: Danis dArian DO Staging: NOT REPORTED Normal [facility] Comment on above: Performed By: #### N A #### [facility] [address] [place] [address] Shear Grinder Operator: Danis Adrian DO CBCon 05-03-2020 Erythrocyte distribution width (RBC) [Ratio] 13.2 % Normal 11.5-14.9 [facility] Comment on above: Performed By: #### N A #### [facility] [place] [address] Shear Grinder Operator: Danis Adrian DO Hematocrit (Bld) [Volume fraction] 41.1 % Normal 41-53 [facility] Comment on above: Performed By: #### N A #### [facility] [address] [place] [address] Shear Grinder Operator: Danis Adrian DO Hemoglobin (Bld) [Mass/Vol] 13.8 g/dL Normal 13.5-17.5 [facility] Comment on above: Performed By: #### N A #### [facility] [address] [place] [address] Shear Grinder Operator: Danis Adrian DO MCH (RBC) [Entitic mass] 28.3 pg Normal 26-34 [facility] Comment on above: Performed By: #### N A #### [facility] [address] [place] [address] Shear Grinder Operator: Danis Adrian DO MCHC (RBC) [Mass/Vol] 33.6 g/dL Normal 31-37 [facility] Comment on above: Performed By: #### N A #### [facility] [place] [address] Shear Grinder Operator: Danis Adrian DO MCV (RBC) [Entitic vol] 84.3 fL Normal 80-100 [facility] Comment on above: Performed By: #### N A #### [facility] [address] [place] [address] Shear Grinder Operator: Danis Adrian DO Platelet mean volume (Bld) [Entitic vol] 8.9 fL Normal 6.0-12.0 [facility] Comment on above: Performed By: #### N A #### [facility] [address] [place] [address] Shear Grinder Operator: Danis Adrian DO Platelets (Bld) [#/Vol] 373 10*3/uL Normal 150-450 [facility] Comment on above: Performed By: #### N A #### [facility] [address] [place] [address] Shear Grinder Operator: Danis Adrian DO RBC (Bld) [#/Vol] 4.88 10*6/uL Normal 4.5-5.9 [facility] Comment on above: Performed By: #### N A #### [facility] [address] [place] [address] Shear Grinder Operator: Danis Adrian DO WBC (Bld) [#/Vol] 27.3 10*3/uL High 3.5-11.0 [facility] Comment on above: Performed By: #### N A #### [facility] [address] [facility] [place] [address] Shear Grinder Operator: Danis Adrian DO NRBC Automated NOT REPORTED Normal [facility] Comment on above: Performed By: #### N A #### [facility] [address] [place] [address] Shear Grinder Operator: Danis Adrian DO Erythrocyte distribution width (RBC) [Ratio] 13.2 % 11.5 - 14.9 % [place] Hematocrit (Bld) [Volume fraction] 41.1 % 41 - 53 % [place] Hemoglobin (Bld) [Mass/Vol] 13.8 g/dL 13.5 - 17.5 g/dL [place] Interpretation and review of laboratory results Abnormal [place] MCH (RBC) [Entitic mass] 28.3 pg 26 - 34 pg [place] MCHC (RBC) [Mass/Vol] 33.6 g/dL 31 - 37 g/dL [place] MCV (RBC) [Entitic vol] 84.3 fL 80 - 100 fL [place] Platelet mean volume (Bld) [Entitic vol] 8.9 fL 6 - 12 fL [place] Platelets (Bld) [#/Vol] 373 10*3/uL [place] RBC (Bld) [#/Vol] 4.88 10*6/uL 4.5 - 5.9 m/uL [place] WBC (Bld) [#/Vol] NOT REPORTED per 100 WBC [place] WBC (Bld) [#/Vol] 27.3 10*3/uL [place] Magnesiumon 05-03-2020 Magnesium [Mass/Vol] 2.4 mg/dL Normal 1.6-2.6 [facility] Comment on above: Performed By: #### U DARIAN Conrad #### [facility] [address] [place] [address] Shear Grinder Operator: Danis Adrian DO Magnesium [Mass/Vol] 2.4 mg/dL 1.6 - 2.6 mg/dL [place] POC Glucose Fingerstickon Glucose [Mass/Vol] 429 mg/dL Critically high 75 - 1 10 mg/dL [place] Interpretation and review of laboratory results Abnormal [place] Glucose [Mass/Vol] 433 mg/dL Critically high 75 - 1 10 mg/dL [place] Comment on above: Critical Noted Interpretation and review of laboratory results Abnormal [place] Glucose [Mass/Vol] 234 mg/dL High 75 - 110 mg/dL [place] Interpretation and review of laboratory results Abnormal [place] Glucose [Mass/Vol] 177 mg/dL High 75 - 110 mg/dL [place] Interpretation and review of laboratory results Abnormal [place] XR CHEST PORTABLEon 05-03-19 XR CHEST PORTABLE EXAMINATION: ONE XRAY VIEW OF THE CHEST 05/03/2020 6:07 am COMPARISON: April 30, 2020, chest exam HISTORY: ORDERING SYSTEM PROVIDED HISTORY: Acute respiratory failure TECHNOLOGIST PROVIDED HISTORY: Acute respiratory failure Reason for Exam: Acute respiratory failure Acuity: Acute Type of Exam: Subsequent/Follow-up Additional signs and symptoms: Acute respiratory failure FINDINGS: Stable cardiac silhouette Interval improvement in now mild bilateral asymmetric, left greater than right, peripheral lung infiltrates No significant pleural process IMPRESSION: Interval improvement in now mild bilateral asymmetric peripheral infiltrates,. Findings are consistent with resolving pneumonia Interpreted by: Lorin French MD Signed by: Lorin French MD 05/03/20 Final result Normal [facility], [facility] Incoming Radiant Results From [employer] - 05/03/2020 7:39 AM EST EXAMINATION: ONE XRAY VIEW OF THE CHEST 05/03/2020 6:07 am COMPARISON: April 30, 2020, chest exam HISTORY: ORDERING SYSTEM PROVIDED HISTORY: Acute respiratory failure TECHNOLOGIST PROVIDED HISTORY: Acute respiratory failure Reason for Exam: Acute respiratory failure Acuity: Acute Type of Exam: Subsequent/Follow-up Additional signs and symptoms: Acute respiratory failure FINDINGS: Stable cardiac silhouette Interval improvement in now mild bilateral asymmetric, left greater than right, peripheral lung infiltrates No significant pleural process IMPRESSION: Interval improvement in now mild bilateral asymmetric peripheral infiltrates,. Findings are consistent with resolving pneumonia [place] Interval improvement in now mild bilateral asymmetric peripheral infiltrates,. Findings are consistent with resolving pneumonia [place] EXAMINATION: ONE XRA Y VIEW OF THE CHEST 05/03/2020 6:07 am COMPARISON: April 30, 2020, chest exam HISTORY: ORDERING SYSTEM PROVIDED HISTORY: Acute respiratory failure TECHNOLOGIST PROVIDED HISTORY: Acute respiratory failure Reason for Exam: Acute respiratory failure Acuity: Acute Type of Exam: Subsequent/Follow-up Additional signs and symptoms: Acute respiratory failure FINDINGS: Stable cardiac silhouette Interval improvement in now mild bilateral asymmetric, left greater than right, peripheral lung infiltrates No significant pleural process [place] BASIC METABOLIC PANELon 04-23 Anion gap [Moles/Vol] 10 mmol/L 9 - 17 mmol/L [place] Bun/Cre Ratio NOT REPORTED [place] Calcium [Mass/Vol] 8.5 mg/dL Low 8.6 - 10. 4 mg/dL [place] Chloride [Moles/Vol] 98 mmol/L 98 - 107 mmol/L [place] CO2 [Moles/Vol] 21 mmol/L 20 - 31 mmol/L [place] Creatinine [Mass/Vol] 1.44 mg/dL High 0.7 - 1.2 mg/dL [place] GFR 58 mL/min Low >60 [place] GFR Non- 48 mL/min Low >60 [place] GFR/1.73 sq M predicted among non-blacks MDRD (S/P/Bld) [Vol rate/Area] [place] Comment on above: Average GFR for 70 o r more years old: 75 mL/min/1.73sq m Chronic Kidney Disease: <60 mL/min/1.73sq m Kidney failure: <15 mL/min/1.73sq m eGFR calculated using average adult body mass. Additional eGFR calculator available at: http://www.[employer]/multiple_crcl_2012.htm GFR/1.73 sq M predicted among non-blacks MDRD (S/P/Bld) [Vol rate/Area] NOT REPORTED [place] Glucose [Mass/Vol] 272 mg/dL High 70 - 99 mg/dL [place] Interpretation and review of laboratory results Abnormal [place] Potassium [Moles/Vol] 4.8 mmol/L 3.7 - 5.3 mmol/L [place] Sodium [Moles/Vol] 129 mmol/L Low 135 - 144 mmol/L [place] Urea nitrogen [Mass/Vol] 50 mg/dL High 8 - 23 mg/dL [place] Basic Metabolic Profon 05-02 (cont.) Normal [facility] Comment on above: Result Comment: Aver age GFR for 70 or more years old: 75 mL/min/1.73sq m Chronic Kidney Disease: <60 mL/min/1.73sq m Kidney failure: <15 mL/min/1.73sq m eGFR calculated using average adult body mass. Additional eGFR calculator available at: http://www.[employer]/multiple_crcl_2012.htm Performed By: #### C DP, BMP, BNP, MG, TROPI #### [facility] [address] [facility] [place] [address] Shear Grinder Operator: Danis Adrian DO Anion gap [Moles/Vol] 10 mmol/L Normal 9-17 [facility] Comment on above: Performed By: #### C DP, BMP, BNP, MG, TROPI #### [facility] [address] [facility] [place] [address] Shear Grinder Operator: Danis Adrian DO Calcium [Mass/Vol] 8.5 mg/dL Low 8.6-10.4 [facility] Comment on above: Performed By: #### C DP, BMP, BNP, MG, TROPI #### [facility] [address] [facility] [place] [address] Shear Grinder Operator: Danis Adrian DO Chloride [Moles/Vol] 98 mmol/L Normal 98-107 [facility] Comment on above: Performed By: #### C DP, BMP, BNP, MG, TROPI #### [facility] [facility] [place] [address] Shear Grinder Operator: Danis Adrian DO CO2 [Moles/Vol] 21 mmol/L Normal 20-31 [facility] Comment on above: Performed By: #### C DP, BMP, BNP, MG, TROPI #### [facility] [place] [address] Shear Grinder Operator: Danis Adrian DO Creatinine [Mass/Vol] 1.44 mg/dL High 0.70-1.20 [facility] Comment on above: Performed By: #### C DP, BMP, BNP, MG, TROPI #### [facility] [address] [place] [address] Shear Grinder Operator: Danis Adrian DO GFR, Amer 58 mL/min Low >60 [facility] Comment on above: Performed By: #### C DP, BMP, BNP, MG, TROPI #### [facility] [address] [place] [address] Shear Grinder Operator: Danis Adrian DO GFR,non Amer 48 mL/min Low >60 [facility] Comment on above: Performed By: #### C DP, BMP, BNP, MG, TROPI #### [facility] [address] [place] [address] Shear Grinder Operator: Danis Adrian DO Glucose [Mass/Vol] 272 mg/dL High 70-99 [facility] Comment on above: Performed By: #### C DP, BMP, BNP, MG, TROPI #### [facility] [address] [place] [address] Shear Grinder Operator: Danis Adrian DO Potassium [Moles/Vol] 4.8 mmol/L Normal 3.7-5.3 [facility] Comment on above: Performed By: #### C DP, BMP, BNP, MG, TROPI #### [facility] [address] [place] [address] Shear Grinder Operator: Danis Adrian DO Sodium [Moles/Vol] 129 mmol/L Low 135-144 [facility] Comment on above: Performed By: #### C DP, BMP, BNP, MG, TROPI #### [facility] [address] [place] [address] Shear Grinder Operator: Danis Adrian DO Urea nitrogen [Mass/Vol] 50 mg/dL High 8-23 [facility] Comment on above: Performed By: #### C DP, BMP, BNP, MG, TROPI #### [facility] [address] [place] [address]. [place] [address] Shear Grinder Operator: Danis Adrian DO BUN/CRE Ratio NOT REPORTED Normal 9-20 [facility] Comment on above: Performed By: #### C DP, BMP, BNP, MG, TROPI #### [facility] [place] [address] Shear Grinder Operator: Danis Adrian DO Staging: NOT REPORTED Normal [facility] Comment on above: Performed By: #### C DP, BMP, BNP, MG, TROPI #### [facility] [place] [address] Shear Grinder Operator: Danis Adrian DO CBCon 05-02-2020 Erythrocyte distribution width (RBC) [Ratio] 12.9 % Normal 11.5-14.9 [facility] Comment on above: Performed By: #### C DP, BMP, BNP, MG, TROPI #### [facility] [address] [place] [address] Shear Grinder Operator: Danis Adrian DO Hematocrit (Bld) [Volume fraction] 42.4 % Normal 41-53 [facility] Comment on above: Performed By: #### C DP, BMP, BNP, MG, TROPI #### [facility] [address] [place] [address] Shear Grinder Operator: Danis Adrian DO Hemoglobin (Bld) [Mass/Vol] 14.1 g/dL Normal 13.5-17.5 [facility] Comment on above: Performed By: #### C DP, BMP, BNP, MG, TROPI #### [facility] [place] [address] Shear Grinder Operator: Danis Adrian DO MCH (RBC) [Entitic mass] 28.1 pg Normal 26-34 [facility] Comment on above: Performed By: #### C DP, BMP, BNP, MG, TROPI #### [facility] [address] [place] [address] Shear Grinder Operator: Danis Adrian DO MCHC (RBC) [Mass/Vol] 33.3 g/dL Normal 31-37 [facility] Comment on above: Performed By: #### C DP, BMP, BNP, MG, TROPI #### [facility] [address] [place] [address] Shear Grinder Operator: Danis Adrian DO MCV (RBC) [Entitic vol] 84.4 fL Normal 80-100 [facility] Comment on above: Performed By: #### C DP, BMP, BNP, MG, TROPI #### [facility] [address] [place] [address] Shear Grinder Operator: Danis Adrian DO Platelet mean volume (Bld) [Entitic vol] 9.2 fL Normal 6.0-12.0 [facility] Comment on above: Performed By: #### C DP, BMP, BNP, MG, TROPI #### [facility] [address] [facility] [place] [address] Shear Grinder Operator: Danis Adrian DO Platelets (Bld) [#/Vol] 394 10*3/uL Normal 150-450 [facility] Comment on above: Performed By: #### C DP, BMP, BNP, MG, TROPI #### [facility] [address] [facility] [place] [address] Shear Grinder Operator: Danis Adrian DO RBC (Bld) [#/Vol] 5.02 10*6/uL Normal 4.5-5.9 [facility] Comment on above: Performed By: #### C DP, BMP, BNP, MG, TROPI #### [facility] [facility] [place] [address] Shear Grinder Operator: Danis Adrian DO WBC (Bld) [#/Vol] 24.5 10*3/uL High 3.5-11.0 [facility] Comment on above: Performed By: #### C DP, BMP, BNP, MG, TROPI #### [facility] [place] [address] Shear Grinder Operator: Danis Adrian DO NRBC Automated NOT REPORTED Normal [facility] Comment on above: Performed By: #### C DP, BMP, BNP, MG, TROPI #### [facility] [place] [address] Shear Grinder Operator: Danis Adrian DO Erythrocyte distribution width (RBC) [Ratio] 12.9 % 11.5 - 14.9 % [place] Hematocrit (Bld) [Volume fraction] 42.4 % 41 - 53 % [place] Hemoglobin (Bld) [Mass/Vol] 14.1 g/dL 13.5 - 17.5 g/dL [place] Interpretation and review of laboratory results Abnormal [place] MCH (RBC) [Entitic mass] 28.1 pg 26 - 34 pg [place] MCHC (RBC) [Mass/Vol] 33.3 g/dL 31 - 37 g/dL [place] MCV (RBC) [Entitic vol] 84.4 fL 80 - 100 fL [place] Platelet mean volume (Bld) [Entitic vol] 9.2 fL 6 - 12 fL [place] Platelets (Bld) [#/Vol] 394 10*3/uL [place] RBC (Bld) [#/Vol] 5.02 10*6/uL 4.5 - 5.9 m/uL [place] WBC (Bld) [#/Vol] NOT REPORTED per 100 WBC [place] WBC (Bld) [#/Vol] 24.5 10*3/uL High [place] Magnesiumon 05-02-2020 Magnesium [Mass/Vol] 2.5 mg/dL Normal 1.6-2.6 [facility] Comment on above: Performed By: #### C DP, BMP, BNP, MG, TROPI #### [facility] [address] [place], [place] [id number] Shear Grinder Operator: Danis Adrian DO Magnesium [Mass/Vol] 2.5 mg/dL 1.6 - 2.6 mg/dL [place] Osmolalityon 05-02-2020 Osmolality [Osmolality] 297 mOsm/kg High 275-295 [facility] Comment on above: Performed By: #### C DP, BMP, BNP, MG, TROPI #### [facility] [address] [place], [place] [id number] Shear Grinder Operator: Danis Adrian DO Interpretation and review of laboratory results Abnormal [place] Serum Osmolality 297 High [place], [place] POC Glucose Fingerstickon Glucose [Mass/Vol] 422 mg/dL Critically high 75 - 1 10 mg/dL [place] Comment on above: Critical Noted Interpretation and review of laboratory results Abnormal [place] Glucose [Mass/Vol] 352 mg/dL High 75 - 110 mg/dL [place] Interpretation and review of laboratory results Abnormal [place] Glucose [Mass/Vol] 339 mg/dL High 75 - 110 mg/dL [place] Interpretation and review of laboratory results Abnormal [place] Glucose [Mass/Vol] 257 mg/dL High 75 - 110 mg/dL [place] Interpretation and review of laboratory results Abnormal [place] BASIC METABOLIC PANELon Anion gap [Moles/Vol] 10 mmol/L 9 - 17 mmol/L [place] Bun/Cre Ratio NOT REPORTED [place] Calcium [Mass/Vol] 8.4 mg/dL Low 8.6 - 10. 4 mg/dL [place] Chloride [Moles/Vol] 101 mmol/L 98 - 107 mmol/L [place] CO2 [Moles/Vol] 20 mmol/L 20 - 31 mmol/L [place] Creatinine [Mass/Vol] 1.41 mg/dL High 0.7 - 1.2 mg/dL [place] GFR 59 mL/min Low >60 [place] GFR Non- 49 mL/min Low >60 [place] GFR/1.73 sq M predicted among non-blacks MDRD (S/P/Bld) [Vol rate/Area] NOT REPORTED [place] GFR/1.73 sq M predicted among non-blacks MDRD (S/P/Bld) [Vol rate/Area] [place] Comment on above: Average GFR for 70 o r more years old: 75 mL/min/1.73sq m Chronic Kidney Disease: <60 mL/min/1.73sq m Kidney failure: <15 mL/min/1.73sq m eGFR calculated using average adult body mass. Additional eGFR calculator available at: http://www.[employer].Coinbase/multiple_crcl_2011.htm Glucose [Mass/Vol] 265 mg/dL High 70 - 99 mg/dL [place] Potassium [Moles/Vol] 4.8 mmol/L 3.7 - 5.3 mmol/L [place] Sodium [Moles/Vol] 131 mmol/L Low 135 - 144 mmol/L [place] Urea nitrogen [Mass/Vol] 48 mg/dL High 8 - 23 mg/dL [place] Basic Metabolic Profon 05-01 (cont.) Normal [facility] Comment on above: Result Comment: Aver age GFR for 70 or more years old: 75 mL/min/1.73sq m Chronic Kidney Disease: <60 mL/min/1.73sq m Kidney failure: <15 mL/min/1.73sq m eGFR calculated using average adult body mass. Additional eGFR calculator available at: http://www.[employer]/multiple_crcl_2012.htm Performed By: #### C DP, BMP, BNP, MG, TROPI #### [facility] [address] [place] [address] [employer]ar Gr[employer] Operator: Danis Adrian DO Anion gap [Moles/Vol] 10 mmol/L Normal 9-17 [facility] Comment on above: Performed By: #### C DP, BMP, BNP, MG, TROPI #### [facility] [address] [place] [address] [employer] Gr[employer] Operator: Danis Adrian DO Calcium [Mass/Vol] 8.4 mg/dL Low 8.6-10.4 [facility] Comment on above: Performed By: #### C DP, BMP, BNP, MG, TROPI #### [facility] [address] [facility] [place] [address] [employer] Gr[employer] Operator: Danis Adrian DO Chloride [Moles/Vol] 101 mmol/L Normal 98-107 [facility] Comment on above: Performed By: #### C DP, BMP, BNP, MG, TROPI #### [facility] [address] [place] [address] [employer]ar Gr[employer] Operator: Danis Adrian DO CO2 [Moles/Vol] 20 mmol/L Normal 20-31 [facility] Comment on above: Performed By: #### C DP, BMP, BNP, MG, TROPI #### [facility] [place] [address] [employer]ar Grinder Operator: Danis Adrian DO Creatinine [Mass/Vol] 1.41 mg/dL High 0.70-1.20 [facility] Comment on above: Performed By: #### C DP, BMP, BNP, MG, TROPI #### [facility] [address] [place] [address] Shear Gr[employer] Operator: Danis Adrian DO GFR, Amer 59 mL/min Low >60 [facility] Comment on above: Performed By: #### C DP, BMP, BNP, MG, TROPI #### [facility] [address] [place] [address] [employer] Gr[employer] Operator: Danis Adrian DO GFR,non Amer 49 mL/min Low >60 [facility] Comment on above: Performed By: #### C DP, BMP, BNP, MG, TROPI #### [facility] [address] [place] [address] [employer] Gr[employer] Operator: Danis Adrian DO Glucose [Mass/Vol] 265 mg/dL High 70-99 [facility] Comment on above: Performed By: #### C DP, BMP, BNP, MG, TROPI #### [facility] [address] [place] [address] [employer] Gr[employer] Operator: Danis Adrian DO Potassium [Moles/Vol] 4.8 mmol/L Normal 3.7-5.3 [facility] Comment on above: Performed By: #### C DP, BMP, BNP, MG, TROPI #### [facility] [address] [facility] [place] [address] Shear Grinder Operator: Danis Adrian DO Sodium [Moles/Vol] 131 mmol/L Low 135-144 [facility] Comment on above: Performed By: #### C DP, BMP, BNP, MG, TROPI #### [facility] [address] [place] [address]. [place] [address] Shear Grinder Operator: Danis Adrian DO Urea nitrogen [Mass/Vol] 48 mg/dL High 8-23 [facility] Comment on above: Performed By: #### C DP, BMP, BNP, MG, TROPI #### [facility] [address] [place] [address] [employer] Gr[employer] Operator: Danis Adrian DO BUN/CRE Ratio NOT REPORTED Normal 9-20 [facility] Comment on above: Performed By: #### C DP, BMP, BNP, MG, TROPI #### [facility] [address] [place] [address] Shear Grinder Operator: Danis Adrian DO Staging: NOT REPORTED Normal [facility] Comment on above: Performed By: #### C DP, BMP, BNP, MG, TROPI #### [facility] [address] [place] [address] Shear Grinder Operator: Danis Adrian DO C-Reactive Proteinon 021 CRP [Mass/Vol] 6.3 mg/L High 0.0-5.0 [facility] Comment on above: Performed By: #### C DP, BMP, BNP, MG, TROPI #### [facility] [address] [place] [address] [employer] Gr[employer] Operator: Danis Adrian DO CRP [Mass/Vol] 6.3 mg/L High 0 - 5 mg/L [facility], [place] Interpretation and review of laboratory results Abnormal [facility], [place] CBCon 05-01-2020 Erythrocyte distribution width (RBC) [Ratio] 13.3 % Normal 11.5-14.9 [facility] Comment on above: Performed By: #### C DP, BMP, BNP, MG, TROPI #### [facility] [address] [place] [address] Shear Grinder Operator: Danis Adrian DO Hematocrit (Bld) [Volume fraction] 40.7 % Low 41-53 [facility] Comment on above: Performed By: #### C DP, BMP, BNP, MG, TROPI #### [facility] [place] [address] Shear Grinder Operator: Danis Adrian DO Hemoglobin (Bld) [Mass/Vol] 14.1 g/dL Normal 13.5-17.5 [facility] Comment on above: Performed By: #### C DP, BMP, BNP, MG, TROPI #### [facility] [address] [place] [address] Shear Grinder Operator: Danis Adrian DO MCH (RBC) [Entitic mass] 29.1 pg Normal 26-34 [facility] Comment on above: Performed By: #### C DP, BMP, BNP, MG, TROPI #### [facility] [place] [address] Shear Grinder Operator: Danis Adrian DO MCHC (RBC) [Mass/Vol] 34.7 g/dL Normal 31-37 [facility] Comment on above: Performed By: #### C DP, BMP, BNP, MG, TROPI #### [facility] [address] [place] [address] Shear Grinder Operator: Danis Adrian DO MCV (RBC) [Entitic vol] 84.0 fL Normal 80-100 [facility] Comment on above: Performed By: #### C DP, BMP, BNP, MG, TROPI #### [facility] [address] [facility] [place] [address] Shear Grinder Operator: Danis Adrian DO Platelet mean volume (Bld) [Entitic vol] 9.2 fL Normal 6.0-12.0 [facility] Comment on above: Performed By: #### C DP, BMP, BNP, MG, TROPI #### [facility] [address] [facility] [place] [address] Shear Grinder Operator: Danis Adrian DO Platelets (Bld) [#/Vol] 347 10*3/uL Normal 150-450 [facility] Comment on above: Performed By: #### C DP, BMP, BNP, MG, TROPI #### [facility] [address] [facility] [place] [address] Shear Grinder Operator: Danis Adrian DO RBC (Bld) [#/Vol] 4.85 10*6/uL Normal 4.5-5.9 [facility] Comment on above: Performed By: #### C DP, BMP, BNP, MG, TROPI #### [facility] [facility] [place] [address] Shear Grinder Operator: Danis Adrian DO WBC (Bld) [#/Vol] 17.6 10*3/uL High 3.5-11.0 [facility] Comment on above: Performed By: #### C DP, BMP, BNP, MG, TROPI #### [facility] [address] [facility] [place] [address] Shear Grinder Operator: Danis Adrian DO NRBC Automated NOT REPORTED Normal [facility] Comment on above: Performed By: #### C DP, BMP, BNP, MG, TROPI #### [facility] [address] [facility] [place] [address] Shear Grinder Operator: Danis Adrian DO Erythrocyte distribution width (RBC) [Ratio] 13.3 % 11.5 - 14.9 % [place] Hematocrit (Bld) [Volume fraction] 40.7 % Low 41 - 53 % [place] Hemoglobin (Bld) [Mass/Vol] 14.1 g/dL 13.5 - 17.5 g/dL [place] Interpretation and review of laboratory results Abnormal [place] MCH (RBC) [Entitic mass] 29.1 pg 26 - 34 pg [place] MCHC (RBC) [Mass/Vol] 34.7 g/dL 31 - 37 g/dL [place] MCV (RBC) [Entitic vol] 84.0 fL 80 - 100 fL [place] Platelet mean volume (Bld) [Entitic vol] 9.2 fL 6 - 12 fL [place] Platelets (Bld) [#/Vol] 347 10*3/uL [place] RBC (Bld) [#/Vol] 4.85 10*6/uL 4.5 - 5.9 m/uL [place] WBC (Bld) [#/Vol] NOT REPORTED per 100 WBC [place] WBC (Bld) [#/Vol] 17.6 10*3/uL [place] D-DIMER, QUANTITATIVEon 01-0 D-Dimer, Quant 0.86 [place] Comment on above: When combined with a low clinical probability, a D dimer value of <0.50 mg/L FEU is considered negative for DVT and PE (negative predictive value of 98%, sensitivity of 97%). If this test is not being used to help rule out DVT and PE, then the following reference range should be utilized: 0.00 - 0.59 mg/L FEU. The D-Dimer assay is intended for use as an aid in the diagnosis of venous thromboembolism (DVT and PE) and the results should be interpreted in conjunction with the patient's medical history, clinical presentation, and other findings. Elevated levels of D-dimer activity can be seen in any state of coagulation activation and is not recommended in patients with therapeutic dose anticoagulant therapy for >24 hours, fibrinolytic therapy within the previous 7 days, trauma or surgery within the previous 4 weeks, disseminated malignancies, aortic aneurysm, sepsis, severe infections, pneumonia, severe skin infections, liver cirrhosis, advanced age, coronary disease, diabetes, and . A very low percentage of patients with DVT may yield D-dimer results below the cutoff of 0.5 mg/L FEU. This is known to be more prevalent in patients with distal DVT. Interpretation and review of laboratory results Abnormal [place] D-Dimer Teston 05-01-2020 D-Dimer Test 0.86 mg/L FEU High 0.00-0.59 [facility] Comment on above: Result Comment: When combined with a low clinical probability, a D dimer value of <0.50 mg/L FEU is considered negative for DVT and PE (negative predictive value of 98%, sensitivity of 97%). If this test is not being used to help rule out DVT and PE, then the following reference range should be utilized: 0.00 - 0.59 mg/L FEU. The D-Dimer assay is intended for use as an aid in the diagnosis of venous thromboembolism (DVT and PE) and the results should be interpreted in conjunction with the patient's medical history, clinical presentation, and other findings. Elevated levels of D-dimer activity can be seen in any state of coagulation activation and is not recommended in patients with therapeutic dose anticoagulant therapy for >24 hours, fibrinolytic therapy within the previous 7 days, trauma or surgery within the previous 4 weeks, disseminated malignancies, aortic aneurysm, sepsis, severe infections, pneumonia, severe skin infections, liver cirrhosis, advanced age, coronary disease, diabetes, and . A very low percentage of patients with DVT may yield D-dimer results below the cutoff of 0.5 mg/L FEU. This is known to be more prevalent in patients with distal DVT. Performed By: #### C DP, BMP, BNP, MG, TROPI #### [facility] [address] [place] [address] Shear Grinder Operator: Danis Adrian DO Ferritinon 05-01-2020 Ferritin [Mass/Vol] 1030 ug/L High 30-400 [facility] Comment on above: Performed By: #### C DP, BMP, BNP, MG, TROPI #### [facility] [address] [facility] [place] [address] Shear Grinder Operator: Danis Adrian DO Ferritin [Mass/Vol] 1030 ug/L High 30 - 400 ug/L [place] Interpretation and review of laboratory results Abnormal [place] Lactate Dehydrogenason 05-01 LD 383 U/L High 135 - 225 U/L [place] Lactate Dehydrogenaseon LDH [Catalytic activity/Vol] 383 U/L High 135-225 [facility] Comment on above: Performed By: #### C DP, BMP, BNP, MG, TROPI #### [facility] [address] [facility] [place] [address] Shear Grinder Operator: Danis Adrian DO Magnesiumon 05-01-2020 Magnesium [Mass/Vol] 2.2 mg/dL Normal 1.6-2.6 [facility] Comment on above: Performed By: #### C DP, BMP, BNP, MG, TROPI #### [facility] [address] [place] [address] Shear Grinder Operator: Danis Adrian DO Magnesium [Mass/Vol] 2.2 mg/dL 1.6 - 2.6 mg/dL [place] Otheron 05-01-2020 Interpretation and review of laboratory results Abnormal [place] POC Glucose Fingerstickon Glucose [Mass/Vol] 363 mg/dL High 75 - 110 mg/dL [place] Interpretation and review of laboratory results Abnormal [place] Glucose [Mass/Vol] 349 mg/dL High 75 - 110 mg/dL [place] Interpretation and review of laboratory results Abnormal [place] Procalcitoninon 05-01-2020 Procalcitonin 0.12 ng/mL High <0.09 [facility] Comment on above: Result Comment: Suspected Sepsis: <0.50 ng/mL Low likelihood of sepsis. 0.50-2.00 ng/mL Increased likelihood of sepsis. Antibiotics encouraged. >2.00 ng/mL High risk of sepsis/shock. Antibiotics strongly encouraged. Suspected Lower Resp Tract Infections: <0.24 ng/mL Low likelihood of bacterial infection. >0.24 ng/mL Increased likelihood of bacterial infection. Antibiotics encouraged. With successful antibiotic therapy, PCT levels should decrease rapidly. (Half-life of 24 to 36 hours.) Procalcitonin values from samples collected within the first 6 hours of systemic infection may still be low. Retesting may be indicated. Values from day 1 and day 4 can be entered into the Change in Procalcitonin Calculator (www.ewsxiz-hrj-wztnuymyrc.Coinbase) to determine the patient's Mortality Risk Prognosis In healthy neonates, plasma Procalcitonin (PCT) concentrations increase gradually after , reaching peak values at about 24 hours of age then decrease to normal values below 0.5 ng/mL by 48-72 hours of age. Performed By: #### C DP, BMP, BNP, MG, TROPI #### [facility] [address] [place] [address] Shear Grinder Operator: Danis Adrian, Interpretation and review of laboratory results Abnormal [place] Procalcitonin 0.12 ng/mL High <0.09 [place] Comment on above: Suspected Sepsis: <0.50 ng/mL Low likelihood of sepsis. 0.50-2.00 ng/mL Increased likelihood of sepsis. Antibiotics encouraged. >2.00 ng/mL High risk of sepsis/shock. Antibiotics strongly encouraged. Suspected Lower Resp Tract Infections: <0.24 ng/mL Low likelihood of bacterial infection. >0.24 ng/mL Increased likelihood of bacterial infection. Antibiotics encouraged. With successful antibiotic therapy, PCT levels should decrease rapidly. (Half-life of 24 to 36 hours.) Procalcitonin values from samples collected within the first 6 hours of systemic infection may still be low. Retesting may be indicated. Values from day 1 and day 4 can be entered into the Change in Procalcitonin Calculator (wwwTarenaxncfgw-zil-xefrbnyrcqS[employer]) to determine the patient's Mortality Risk Prognosis In healthy neonates, plasma Procalcitonin (PCT) concentrations increase gradually after , reaching peak values at about 24 hours of age then decrease to normal values below 0.5 ng/mL by 48-72 hours of age. BASIC METABOLIC PANEL Anion gap [Moles/Vol] 13 mmol/L 9 - 17 mmol/L [place], [place] Bun/Cre Ratio NOT REPORTED [place], [place] Calcium [Mass/Vol] 8.6 mg/dL 8.6 - 10. 4 mg/dL [place] Chloride [Moles/Vol] 99 mmol/L 98 - 107 mmol/L [place] CO2 [Moles/Vol] 20 mmol/L 20 - 31 mmol/L [place] Creatinine [Mass/Vol] 1.62 mg/dL High 0.7 - 1.2 mg/dL [place] GFR 50 mL/min Low >60 [place] GFR Non- 42 mL/min Low >60 [place] GFR/1.73 sq M predicted among non-blacks MDRD (S/P/Bld) [Vol rate/Area] [place], [place] Comment on above: Average GFR for 70 o r more years old: 75 mL/min/1.73sq m Chronic Kidney Disease: <60 mL/min/1.73sq m Kidney failure: <15 mL/min/1.73sq m eGFR calculated using average adult body mass. Additional eGFR calculator available at: http://www.[employer]/multiple_crcl_2012.htm GFR/1.73 sq M predicted among non-blacks MDRD (S/P/Bld) [Vol rate/Area] NOT REPORTED [place] Glucose [Mass/Vol] 228 mg/dL High 70 - 99 mg/dL [place] Interpretation and review of laboratory results Abnormal [place] Potassium [Moles/Vol] 4.5 mmol/L 3.7 - 5.3 mmol/L [place] Sodium [Moles/Vol] 132 mmol/L Low 135 - 144 mmol/L [facility] [place], [place] Urea nitrogen [Mass/Vol] 48 mg/dL High 8 - 23 mg/dL [facility], [place] Basic Metabolic Profon 04-30 (cont.) Normal [facility] Comment on above: Result Comment: Aver age GFR for 70 or more years old: 75 mL/min/1.73sq m Chronic Kidney Disease: <60 mL/min/1.73sq m Kidney failure: <15 mL/min/1.73sq m eGFR calculated using average adult body mass. Additional eGFR calculator available at: http://www.[employer]/multiple_crcl_2012.htm Performed By: #### C DP, BMP, BNP, MG, TROPI #### [facility] [address] [facility] [place] [address] Shear Grinder Operator: Danis Adrian DO Anion gap [Moles/Vol] 13 mmol/L Normal 9-17 [facility] Comment on above: Performed By: #### C DP, BMP, BNP, MG, TROPI #### [facility] [address] [facility] [place] [address] Shear Grinder Operator: Danis Adrian DO Calcium [Mass/Vol] 8.6 mg/dL Normal 8.6-10.4 [facility] Comment on above: Performed By: #### C DP, BMP, BNP, MG, TROPI #### [facility] [facility] [place] [address] Shear Grinder Operator: Danis Adrian DO Chloride [Moles/Vol] 99 mmol/L Normal 98-107 [facility] Comment on above: Performed By: #### C DP, BMP, BNP, MG, TROPI #### [facility] [facility] [place] [address] Shear Grinder Operator: Danis Adrian DO CO2 [Moles/Vol] 20 mmol/L Normal 20-31 [facility] Comment on above: Performed By: #### C DP, BMP, BNP, MG, TROPI #### [facility] [address] [facility] [place] [address] Shear Grinder Operator: Danis Adrian DO Creatinine [Mass/Vol] 1.62 mg/dL High 0.70-1.20 [facility] Comment on above: Performed By: #### C DP, BMP, BNP, MG, TROPI #### [facility] [address] [facility] [place] [address] Shear Grinder Operator: Danis Adrian DO GFR, Amer 50 mL/min Low >60 [facility] Comment on above: Performed By: #### C DP, BMP, BNP, MG, TROPI #### [facility] [address] [facility] [place] [address] Shear Grinder Operator: Danis Adrian DO GFR,non Amer 42 mL/min Low >60 [facility] Comment on above: Performed By: #### C DP, BMP, BNP, MG, TROPI #### [facility] [place] [address] Shear Grinder Operator: Danis Adrian DO Glucose [Mass/Vol] 228 mg/dL High 70-99 [facility] Comment on above: Performed By: #### C DP, BMP, BNP, MG, TROPI #### [facility] [facility] [place] [address] Shear Grinder Operator: Danis Adrian DO Potassium [Moles/Vol] 4.5 mmol/L Normal 3.7-5.3 [facility] Comment on above: Performed By: #### C DP, BMP, BNP, MG, TROPI #### [facility] [address] [place] [address] Shear Grinder Operator: Danis Adrian DO Sodium [Moles/Vol] 132 mmol/L Low 135-144 [facility] Comment on above: Performed By: #### C DP, BMP, BNP, MG, TROPI #### [facility] [address] [place] [address] Shear Grinder Operator: Danis Adrian DO Urea nitrogen [Mass/Vol] 48 mg/dL High 8-23 [facility] Comment on above: Performed By: #### C DP, BMP, BNP, MG, TROPI #### [facility] [address] [place] [address] Shear Grinder Operator: Danis Adrian DO BUN/CRE Ratio NOT REPORTED Normal 9-20 [facility] Comment on above: Performed By: #### C DP, BMP, BNP, MG, TROPI #### [facility] [place] [address] Shear Grinder Operator: Danis Adrian DO Staging: NOT REPORTED Normal [facility] Comment on above: Performed By: #### C DP, BMP, BNP, MG, TROPI #### [facility] [place] [address] Shear Grinder Operator: Danis Adrian DO CBCon 04-30-2020 Erythrocyte distribution width (RBC) [Ratio] 13.0 % Normal 11.5-14.9 [facility] Comment on above: Performed By: #### C DP, BMP, BNP, MG, TROPI #### [facility] [place] [address] Shear Grinder Operator: Danis Adrian DO Hematocrit (Bld) [Volume fraction] 39.9 % Low 41-53 [facility] Comment on above: Performed By: #### C DP, BMP, BNP, MG, TROPI #### [facility] [place] [address] Shear Grinder Operator: Danis Adrian DO Hemoglobin (Bld) [Mass/Vol] 13.8 g/dL Normal 13.5-17.5 [facility] Comment on above: Performed By: #### C DP, BMP, BNP, MG, TROPI #### [facility] [place] [address] Shear Grinder Operator: Danis Adrian DO MCH (RBC) [Entitic mass] 29.0 pg Normal 26-34 [facility] Comment on above: Performed By: #### C DP, BMP, BNP, MG, TROPI #### [facility] [place] [address] Shear Grinder Operator: Danis Adrian DO MCHC (RBC) [Mass/Vol] 34.6 g/dL Normal 31-37 [facility] Comment on above: Performed By: #### C DP, BMP, BNP, MG, TROPI #### [facility] [address] [place] [address] Shear Grinder Operator: Danis Adrian DO MCV (RBC) [Entitic vol] 83.7 fL Normal 80-100 [facility] Comment on above: Performed By: #### C DP, BMP, BNP, MG, TROPI #### [facility] [address] [place] [address] Shear Grinder Operator: Danis Adrian DO Platelet mean volume (Bld) [Entitic vol] 9.0 fL Normal 6.0-12.0 [facility] Comment on above: Performed By: #### C DP, BMP, BNP, MG, TROPI #### [facility] [address] [place] [address] Shear Grinder Operator: Danis Adrian DO Platelets (Bld) [#/Vol] 344 10*3/uL Normal 150-450 [facility] Comment on above: Performed By: #### C DP, BMP, BNP, MG, TROPI #### [facility] [address] [place] [address] [place] [address] Shear Grinder Operator: Danis Adrian DO RBC (Bld) [#/Vol] 4.77 10*6/uL Normal 4.5-5.9 [facility] Comment on above: Performed By: #### C DP, BMP, BNP, MG, TROPI #### [facility] [address] [place] [address] Shear Grinder Operator: Danis Adrian DO WBC (Bld) [#/Vol] 15.9 10*3/uL High 3.5-11.0 [facility] Comment on above: Performed By: #### C DP, BMP, BNP, MG, TROPI #### [facility] [address] [place] [address] Shear Grinder Operator: Danis Adrian DO NRBC Automated NOT REPORTED Normal [facility] Comment on above: Performed By: #### C DP, BMP, BNP, MG, TROPI #### [facility] [address] [place] [address] Shear Grinder Operator: Danis Adrian DO Erythrocyte distribution width (RBC) [Ratio] 13.0 % 11.5 - 14.9 % [place] Hematocrit (Bld) [Volume fraction] 39.9 % Low 41 - 53 % [place] Hemoglobin (Bld) [Mass/Vol] 13.8 g/dL 13.5 - 17.5 g/dL [place] Interpretation and review of laboratory results Abnormal [place] MCH (RBC) [Entitic mass] 29.0 pg 26 - 34 pg [place] MCHC (RBC) [Mass/Vol] 34.6 g/dL 31 - 37 g/dL [place] MCV (RBC) [Entitic vol] 83.7 fL 80 - 100 fL [place] Platelet mean volume (Bld) [Entitic vol] 9.0 fL 6 - 12 fL [place] Platelets (Bld) [#/Vol] 344 10*3/uL [place] RBC (Bld) [#/Vol] 4.77 10*6/uL 4.5 - 5.9 m/uL [place] WBC (Bld) [#/Vol] NOT REPORTED per 100 WBC [place] WBC (Bld) [#/Vol] 15.9 10*3/uL High [place] Magnesiumon 04-30-2020 Magnesium [Mass/Vol] 2.3 mg/dL Normal 1.6-2.6 [facility] Comment on above: Performed By: #### C DP, BMP, BNP, MG, TROPI #### [facility] [address] [place] [address] Shear Grinder Operator: Danis Adrian DO Magnesium [Mass/Vol] 2.3 mg/dL 1.6 - 2.6 mg/dL [place] POC Glucose Fingerstickon Glucose [Mass/Vol] 363 mg/dL High 75 - 110 mg/dL [place] Interpretation and review of laboratory results Abnormal [place] Glucose [Mass/Vol] 337 mg/dL High 75 - 110 mg/dL [place] Interpretation and review of laboratory results Abnormal [place] Glucose [Mass/Vol] 272 mg/dL High 75 - 110 mg/dL [place] Interpretation and review of laboratory results Abnormal [place] Glucose [Mass/Vol] 217 mg/dL High 75 - 110 mg/dL [place] Interpretation and review of laboratory results Abnormal [place] XR CHEST PORTABLEon 04-30-19 21 XR CHEST PORTABLE EXAMINATION: ONE XRAY VIEW OF THE CHEST 04/30/2020 5:40 am COMPARISON: 04/27/2020 and prior HISTORY: ORDERING SYSTEM PROVIDED HISTORY: COVID-19 pneumonia TECHNOLOGIST PROVIDED HISTORY: COVID-19 pneumonia Reason for Exam: COVID-19 pneumonia Acuity: Unknown Type of Exam: Unknown Additional signs and symptoms: COVID-19 pneumonia Relevant Medical/Surgical History: COVID-19 pneumonia FINDINGS: Study is limited secondary to overlying support and monitoring apparatus. Heart size appears stable. Ground-glass and interstitial opacities with more focal consolidation in the left mid lung zone peripherally and the left lung base are similar in distribution and progressed from the comparison study. Portions of the right lung base are excluded from the field view of the study. Mild diffuse increased ground-glass and interstitial opacity in the mid and lower lung zone on the right appears similar to the prior study. Osseous structures are unremarkable. No new lines or tubes are identified. IMPRESSION: Slight progression of multifocal airspace disease, left greater than right, compared to prior study. Interpreted by: Con Monterroso MD Signed by: Con Monterroso MD 04/30/20 Final result Normal [facility] Slight progression o f multifocal airspace disease, left greater than right, compared to prior study. [facility] James, Mhpn Incoming Radiant Results From [employer] - 04/30/2020 8:06 AM EST EXAMINATION: ONE XRAY VIEW OF THE CHEST 04/30/2020 5:40 am COMPARISON: 04/27/2020 and prior HISTORY: ORDERING SYSTEM PROVIDED HISTORY: COVID-19 pneumonia TECHNOLOGIST PROVIDED HISTORY: COVID-19 pneumonia Reason for Exam: COVID-19 pneumonia Acuity: Unknown Type of Exam: Unknown Additional signs and symptoms: COVID-19 pneumonia Relevant Medical/Surgical History: COVID-19 pneumonia FINDINGS: Study is limited secondary to overlying support and monitoring apparatus. Heart size appears stable. Ground-glass and interstitial opacities with more focal consolidation in the left mid lung zone peripherally and the left lung base are similar in distribution and progressed from the comparison study. Portions of the right lung base are excluded from the field view of the study. Mild diffuse increased ground-glass and interstitial opacity in the mid and lower lung zone on the right appears similar to the prior study. Osseous structures are unremarkable. No new lines or tubes are identified. IMPRESSION: Slight progression of multifocal airspace disease, left greater than right, compared to prior study. [facility] ONE XRA Y VIEW OF THE CHEST 04/30/2020 5:40 am COMPARISON: 04/27/2020 and prior HISTORY: ORDERING SYSTEM PROVIDED HISTORY: COVID-19 pneumonia TECHNOLOGIST PROVIDED HISTORY: COVID-19 pneumonia Reason for Exam: COVID-19 pneumonia Acuity: Unknown Type of Exam: Unknown Additional signs and symptoms: COVID-19 pneumonia Relevant Medical/Surgical History: COVID-19 pneumonia FINDINGS: Study is limited secondary to overlying support and monitoring apparatus. Heart size appears stable. Ground-glass and interstitial opacities with more focal consolidation in the left mid lung zone peripherally and the left lung base are similar in distribution and progressed from the comparison study. Portions of the right lung base are excluded from the field view of the study. Mild diffuse increased ground-glass and interstitial opacity in the mid and lower lung zone on the right appears similar to the prior study. Osseous structures are unremarkable. No new lines or tubes are identified. [place] BASIC METABOLIC PANELon 01-0 Anion gap [Moles/Vol] 11 mmol/L 9 - 17 mmol/L [place] Bun/Cre Ratio NOT REPORTED [place], [place] Calcium [Mass/Vol] 8.6 mg/dL 8.6 - 10. 4 mg/dL [place] Chloride [Moles/Vol] 105 mmol/L 98 - 107 mmol/L [place] CO2 [Moles/Vol] 19 mmol/L Low 20 - 31 mmol/L [place] Creatinine [Mass/Vol] 1.51 mg/dL High 0.7 - 1.2 mg/dL [place] GFR 55 mL/min Low >60 [place] GFR Non- 45 mL/min Low >60 [place] GFR/1.73 sq M predicted among non-blacks MDRD (S/P/Bld) [Vol rate/Area] [place] Comment on above: Average GFR for 70 o r more years old: 75 mL/min/1.73sq m Chronic Kidney Disease: <60 mL/min/1.73sq m Kidney failure: <15 mL/min/1.73sq m eGFR calculated using average adult body mass. Additional eGFR calculator available at: http://www.[employer]/multiple_crcl_2012.htm GFR/1.73 sq M predicted among non-blacks MDRD (S/P/Bld) [Vol rate/Area] NOT REPORTED [place] Glucose [Mass/Vol] 206 mg/dL High 70 - 99 mg/dL [place] Interpretation and review of laboratory results Abnormal [place] Potassium [Moles/Vol] 4.4 mmol/L 3.7 - 5.3 mmol/L [place] Sodium [Moles/Vol] 135 mmol/L 135 - 144 mmol/L [place] Urea nitrogen [Mass/Vol] 47 mg/dL High 8 - 23 mg/dL [place] Basic Metabolic Profon 04-29 (cont.) Normal [facility] Comment on above: Result Comment: Aver age GFR for 70 or more years old: 75 mL/min/1.73sq m Chronic Kidney Disease: <60 mL/min/1.73sq m Kidney failure: <15 mL/min/1.73sq m eGFR calculated using average adult body mass. Additional eGFR calculator available at: http://www.[employer]/multiple_crcl_2011.htm Performed By: #### C DP, BMP, BNP, MG, TROPI #### [facility] [address] [place] [address] Shear Grinder Operator: Danis Adrian DO Anion gap [Moles/Vol] 11 mmol/L Normal 9-17 [facility] Comment on above: Performed By: #### C DP, BMP, BNP, MG, TROPI #### [facility] [address] [place] [address] Shear Grinder Operator: Danis Adrian DO Calcium [Mass/Vol] 8.6 mg/dL Normal 8.6-10.4 [facility] Comment on above: Performed By: #### C DP, BMP, BNP, MG, TROPI #### [facility] [address] [place] [address] Shear Grinder Operator: Danis Adrian DO Chloride [Moles/Vol] 105 mmol/L Normal 98-107 [facility] Comment on above: Performed By: #### C DP, BMP, BNP, MG, TROPI #### [facility] [place] [address] Shear Grinder Operator: Danis Adrian DO CO2 [Moles/Vol] 19 mmol/L Low 20-31 [facility] Comment on above: Performed By: #### C DP, BMP, BNP, MG, TROPI #### [facility] [place] [address] Shear Grinder Operator: Danis Adrian DO Creatinine [Mass/Vol] 1.51 mg/dL High 0.70-1.20 [facility] Comment on above: Performed By: #### C DP, BMP, BNP, MG, TROPI #### [facility] [address] [place] [address] Shear Grinder Operator: Danis Adrian DO GFR, Amer 55 mL/min Low >60 [facility] Comment on above: Performed By: #### C DP, BMP, BNP, MG, TROPI #### [facility] [address] [place] [address] Shear Grinder Operator: Danis Adrian DO GFR,non Amer 45 mL/min Low >60 [facility] Comment on above: Performed By: #### C DP, BMP, BNP, MG, TROPI #### [facility] [address] [place] [address] Shear Grinder Operator: Danis Adrian DO Glucose [Mass/Vol] 206 mg/dL High 70-99 [facility] Comment on above: Performed By: #### C DP, BMP, BNP, MG, TROPI #### [facility] [address] [place] [address] Shear Grinder Operator: Danis Adrian DO Potassium [Moles/Vol] 4.4 mmol/L Normal 3.7-5.3 [facility] Comment on above: Performed By: #### C DP, BMP, BNP, MG, TROPI #### [facility] [place] [address] Shear Grinder Operator: Danis Adrian DO Sodium [Moles/Vol] 135 mmol/L Normal 135-144 [facility] Comment on above: Performed By: #### C DP, BMP, BNP, MG, TROPI #### [facility] [address] [place] [address] Shear Grinder Operator: Danis Adrian DO Urea nitrogen [Mass/Vol] 47 mg/dL High 8-23 [facility] Comment on above: Performed By: #### C DP, BMP, BNP, MG, TROPI #### [facility] [address] [place] [address] Shear Grinder Operator: Danis Adrian DO BUN/CRE Ratio NOT REPORTED Normal 9-20 [facility] Comment on above: Performed By: #### C DP, BMP, BNP, MG, TROPI #### [facility] [address] [place] [address] Shear Grinder Operator: Danis Adrian DO Staging: NOT REPORTED Normal [facility] Comment on above: Performed By: #### C DP, BMP, BNP, MG, TROPI #### [facility] [address] [place] [address] Shear Grinder Operator: Danis Adrian DO CBCon 04-29-2020 Erythrocyte distribution width (RBC) [Ratio] 12.9 % Normal 11.5-14.9 [facility] Comment on above: Performed By: #### C DP, BMP, BNP, MG, TROPI #### [facility] [address] [place] [address] Shear Grinder Operator: Fanelly, Danis, DO Hematocrit (Bld) [Volume fraction] 42.4 % Normal 41-53 [facility] Comment on above: Performed By: #### C DP, BMP, BNP, MG, TROPI #### [facility] [address] [place] [address] Shear Grinder Operator: Danis Adrian DO Hemoglobin (Bld) [Mass/Vol] 14.4 g/dL Normal 13.5-17.5 [facility] Comment on above: Performed By: #### C DP, BMP, BNP, MG, TROPI #### [facility] [place] [address] Shear Grinder Operator: Danis Adrian DO MCH (RBC) [Entitic mass] 28.4 pg Normal 26-34 [facility] Comment on above: Performed By: #### C DP, BMP, BNP, MG, TROPI #### [facility] [address] [place] [address] Shear Grinder Operator: Danis Adrian DO MCHC (RBC) [Mass/Vol] 34.0 g/dL Normal 31-37 [facility] Comment on above: Performed By: #### C DP, BMP, BNP, MG, TROPI #### [facility] [address] [place] [address] Shear Grinder Operator: Danis Adrian DO MCV (RBC) [Entitic vol] 83.5 fL Normal 80-100 [facility] Comment on above: Performed By: #### C DP, BMP, BNP, MG, TROPI #### [facility] [address] [place] [address]. [place] [address] Shear Grinder Operator: Danis Adrian DO Platelet mean volume (Bld) [Entitic vol] 9.2 fL Normal 6.0-12.0 [facility] Comment on above: Performed By: #### C DP, BMP, BNP, MG, TROPI #### [facility] [address] [facility] [place] [address] Shear Grinder Operator: Danis Adrian DO Platelets (Bld) [#/Vol] 302 10*3/uL Normal 150-450 [facility] Comment on above: Performed By: #### C DP, BMP, BNP, MG, TROPI #### [facility] [address] [facility] [place] [address] Shear Grinder Operator: Danis Adrian DO RBC (Bld) [#/Vol] 5.08 10*6/uL Normal 4.5-5.9 [facility] Comment on above: Performed By: #### C DP, BMP, BNP, MG, TROPI #### [facility] [address] [facility] [place] [address] Shear Grinder Operator: Danis Adrian DO WBC (Bld) [#/Vol] 13.3 10*3/uL High 3.5-11.0 [facility] Comment on above: Performed By: #### C DP, BMP, BNP, MG, TROPI #### [facility] [facility] [place] [address] Shear Grinder Operator: Danis Adrian DO NRBC Automated NOT REPORTED Normal [facility] Comment on above: Performed By: #### C DP, BMP, BNP, MG, TROPI #### [facility] [address] [place] [address] Shear Grinder Operator: Danis Adrian DO Erythrocyte distribution width (RBC) [Ratio] 12.9 % 11.5 - 14.9 % [place] Hematocrit (Bld) [Volume fraction] 42.4 % 41 - 53 % [place] Hemoglobin (Bld) [Mass/Vol] 14.4 g/dL 13.5 - 17.5 g/dL [place] Interpretation and review of laboratory results Abnormal [place] MCH (RBC) [Entitic mass] 28.4 pg 26 - 34 pg [place] MCHC (RBC) [Mass/Vol] 34.0 g/dL 31 - 37 g/dL [place] MCV (RBC) [Entitic vol] 83.5 fL 80 - 100 fL [place] Platelet mean volume (Bld) [Entitic vol] 9.2 fL 6 - 12 fL [place] Platelets (Bld) [#/Vol] 302 10*3/uL [place] RBC (Bld) [#/Vol] 5.08 10*6/uL 4.5 - 5.9 m/uL [place] WBC (Bld) [#/Vol] 13.3 10*3/uL High [place] WBC (Bld) [#/Vol] NOT REPORTED per 100 WBC [place] Magnesiumon 04-29-2020 Magnesium [Mass/Vol] 2.4 mg/dL Normal 1.6-2.6 [facility] Comment on above: Performed By: #### C DP, BMP, BNP, MG, TROPI #### [facility] [address] [facility] [place] [address] Shear Grinder Operator: Danis Adrian DO Magnesium [Mass/Vol] 2.4 mg/dL 1.6 - 2.6 mg/dL [place] NA (Sodium)on 04-29-2020 Sodium [Moles/Vol] 126 mmol/L Low 135-144 [facility] Comment on above: Performed By: #### N A #### [facility] [address] [facility] [address] [place], [place] [id number] Shear Grinder Operator: Danis Adrian DO Interpretation and review of laboratory results Abnormal [place] Sodium [Moles/Vol] 126 mmol/L Low 135 - 144 mmol/L [place] POC Glucose Fingerstickon Glucose [Mass/Vol] 347 mg/dL High 75 - 110 mg/dL [place] Interpretation and review of laboratory results Abnormal [place] Glucose [Mass/Vol] 198 mg/dL High 75 - 110 mg/dL [place] Interpretation and review of laboratory results Abnormal [place] Glucose [Mass/Vol] 337 mg/dL High 75 - 110 mg/dL [place] Interpretation and review of laboratory results Abnormal [place] Glucose [Mass/Vol] 173 mg/dL High 75 - 110 mg/dL [place] Interpretation and review of laboratory results Abnormal [place] BASIC METABOLIC PANELon Anion gap [Moles/Vol] 9 mmol/L 9 - 17 mmol/L [place] Bun/Cre Ratio NOT REPORTED [place] Calcium [Mass/Vol] 8.2 mg/dL Low 8.6 - 10. 4 mg/dL [place] Chloride [Moles/Vol] 99 mmol/L 98 - 107 mmol/L [place] CO2 [Moles/Vol] 21 mmol/L 20 - 31 mmol/L [place] Creatinine [Mass/Vol] 1.44 mg/dL High 0.7 - 1.2 mg/dL [place] GFR 58 mL/min Low >60 [place] GFR Non- 48 mL/min Low >60 [place] GFR/1.73 sq M predicted among non-blacks MDRD (S/P/Bld) [Vol rate/Area] [place] Comment on above: Average GFR for 70 o r more years old: 75 mL/min/1.73sq m Chronic Kidney Disease: <60 mL/min/1.73sq m Kidney failure: <15 mL/min/1.73sq m eGFR calculated using average adult body mass. Additional eGFR calculator available at: http://www.[employer]/multiple_crcl_2012.htm GFR/1.73 sq M predicted among non-blacks MDRD (S/P/Bld) [Vol rate/Area] NOT REPORTED [place] Glucose [Mass/Vol] 254 mg/dL High 70 - 99 mg/dL [place] Interpretation and review of laboratory results Abnormal [place] Potassium [Moles/Vol] 4.6 mmol/L 3.7 - 5.3 mmol/L [place] Sodium [Moles/Vol] 129 mmol/L Low 135 - 144 mmol/L [place] Urea nitrogen [Mass/Vol] 43 mg/dL High 8 - 23 mg/dL [place] Basic Metabolic Profon 04-28 (cont.) Normal [facility] Comment on above: Result Comment: Aver age GFR for 70 or more years old: 75 mL/min/1.73sq m Chronic Kidney Disease: <60 mL/min/1.73sq m Kidney failure: <15 mL/min/1.73sq m eGFR calculated using average adult body mass. Additional eGFR calculator available at: http://www.[employer]/multiple_crcl_2012.htm Performed By: #### C DP, BMP, BNP, MG, TROPI #### [facility] [address] [facility] [place] [address] Shear Grinder Operator: Danis Adrian DO Anion gap [Moles/Vol] 9 mmol/L Normal 9-17 [facility] Comment on above: Performed By: #### C DP, BMP, BNP, MG, TROPI #### [facility] [address] [facility] [place] [address] Shear Grinder Operator: Danis Adrian DO Calcium [Mass/Vol] 8.2 mg/dL Low 8.6-10.4 [facility] Comment on above: Performed By: #### C DP, BMP, BNP, MG, TROPI #### [facility] [address] [facility] [place] [address] Shear Grinder Operator: Danis Adrian DO Chloride [Moles/Vol] 99 mmol/L Normal 98-107 [facility] Comment on above: Performed By: #### C DP, BMP, BNP, MG, TROPI #### [facility] [address] [place] [address] Shear Grinder Operator: Danis Adrian DO CO2 [Moles/Vol] 21 mmol/L Normal 20-31 [facility] Comment on above: Performed By: #### C DP, BMP, BNP, MG, TROPI #### [facility] [address] [facility] [place] [address] Shear Grinder Operator: Danis Adrian DO Creatinine [Mass/Vol] 1.44 mg/dL High 0.70-1.20 [facility] Comment on above: Performed By: #### C DP, BMP, BNP, MG, TROPI #### [facility] [facility] [place] [address] Shear Grinder Operator: Danis Adrian DO GFR, Amer 58 mL/min Low >60 [facility] Comment on above: Performed By: #### C DP, BMP, BNP, MG, TROPI #### [facility] [facility] [place] [address] Shear Grinder Operator: Danis Adrian DO GFR,non Amer 48 mL/min Low >60 [facility] Comment on above: Performed By: #### C DP, BMP, BNP, MG, TROPI #### [facility] [address] [place] [address]. [place] [address] Shear Grinder Operator: Danis Adrian DO Glucose [Mass/Vol] 254 mg/dL High 70-99 [facility] Comment on above: Performed By: #### C DP, BMP, BNP, MG, TROPI #### [facility] [facility] [place] [address] Shear Grinder Operator: Danis Adrian DO Potassium [Moles/Vol] 4.6 mmol/L Normal 3.7-5.3 [facility] Comment on above: Performed By: #### C DP, BMP, BNP, MG, TROPI #### [facility] [place] [address] Shear Grinder Operator: Danis Adrian DO Sodium [Moles/Vol] 129 mmol/L Low 135-144 [facility] Comment on above: Performed By: #### C DP, BMP, BNP, MG, TROPI #### [facility] [address] [place] [address]. [place] [address] Shear Grinder Operator: Danis Adrian DO Urea nitrogen [Mass/Vol] 43 mg/dL High 8-23 [facility] Comment on above: Performed By: #### C DP, BMP, BNP, MG, TROPI #### [facility] [address] [place] [address]. [place] [address] Shear Grinder Operator: Danis Adrian DO BUN/CRE Ratio NOT REPORTED Normal 9-20 [facility] Comment on above: Performed By: #### C DP, BMP, BNP, MG, TROPI #### [facility] [address] [place] [address] Shear Grinder Operator: Danis Adrian DO Staging: NOT REPORTED Normal [facility] Comment on above: Performed By: #### C DP, BMP, BNP, MG, TROPI #### [facility] [address] [place] [address] Shear Grinder Operator: Danis Adrian DO C-Reactive Proteinon 021 CRP [Mass/Vol] 29.1 mg/L High 0.0-5.0 [facility] Comment on above: Performed By: #### C DP, BMP, BNP, MG, TROPI #### [facility] [address] [place] [address] Shear Grinder Operator: Danis Adrian DO CRP [Mass/Vol] 29.1 mg/L High 0 - 5 mg/L [facility] [place] Interpretation and review of laboratory results Abnormal [place] CBCon 04-28-2020 Erythrocyte distribution width (RBC) [Ratio] 13.4 % Normal 11.5-14.9 [facility] Comment on above: Performed By: #### C DP, BMP, BNP, MG, TROPI #### [facility] [address] [place] [address] Shear Grinder Operator: Danis Adrian DO Hematocrit (Bld) [Volume fraction] 40.9 % Low 41-53 [facility] Comment on above: Performed By: #### C DP, BMP, BNP, MG, TROPI #### [facility] [place] [address] Shear Grinder Operator: Danis Adrian DO Hemoglobin (Bld) [Mass/Vol] 14.0 g/dL Normal 13.5-17.5 [facility] Comment on above: Performed By: #### C DP, BMP, BNP, MG, TROPI #### [facility] [address] [place] [address] Shear Grinder Operator: Danis Adrian DO MCH (RBC) [Entitic mass] 29.0 pg Normal 26-34 [facility] Comment on above: Performed By: #### C DP, BMP, BNP, MG, TROPI #### [facility] [facility] [place] [address] Shear Grinder Operator: Danis Adrian DO MCHC (RBC) [Mass/Vol] 34.3 g/dL Normal 31-37 [facility] Comment on above: Performed By: #### C DP, BMP, BNP, MG, TROPI #### [facility] [address] [place] [address] Shear Grinder Operator: Danis Adrian DO MCV (RBC) [Entitic vol] 84.6 fL Normal 80-100 [facility] Comment on above: Performed By: #### C DP, BMP, BNP, MG, TROPI #### [facility] [address] [facility] [place] [address] Shear Grinder Operator: Danis Adrian DO Platelet mean volume (Bld) [Entitic vol] 9.6 fL Normal 6.0-12.0 [facility] Comment on above: Performed By: #### C DP, BMP, BNP, MG, TROPI #### [facility] [address] [facility] [place] [address] Shear Grinder Operator: Danis Adrian DO Platelets (Bld) [#/Vol] 230 10*3/uL Normal 150-450 [facility] Comment on above: Performed By: #### C DP, BMP, BNP, MG, TROPI #### [facility] [facility] [place] [address] Shear Grinder Operator: Danis Adrian DO RBC (Bld) [#/Vol] 4.84 10*6/uL Normal 4.5-5.9 [facility] Comment on above: Performed By: #### C DP, BMP, BNP, MG, TROPI #### [facility] [place] [address] Shear Grinder Operator: Danis Adrian DO WBC (Bld) [#/Vol] 9.6 10*3/uL Normal 3.5-11.0 [facility] Comment on above: Performed By: #### C DP, BMP, BNP, MG, TROPI #### [facility] [place] [address] Shear Grinder Operator: Danis Adrian DO NRBC Automated NOT REPORTED Normal [facility] Comment on above: Performed By: #### C DP, BMP, BNP, MG, TROPI #### [facility] [address] [place] [address] Shear Grinder Operator: Danis Adrian DO Erythrocyte distribution width (RBC) [Ratio] 13.4 % 11.5 - 14.9 % [place] Hematocrit (Bld) [Volume fraction] 40.9 % Low 41 - 53 % [place] Hemoglobin (Bld) [Mass/Vol] 14.0 g/dL 13.5 - 17.5 g/dL [place] Interpretation and review of laboratory results Abnormal [place] MCH (RBC) [Entitic mass] 29.0 pg 26 - 34 pg [place] MCHC (RBC) [Mass/Vol] 34.3 g/dL 31 - 37 g/dL [place] MCV (RBC) [Entitic vol] 84.6 fL 80 - 100 fL [place] Platelet mean volume (Bld) [Entitic vol] 9.6 fL 6 - 12 fL [place] Platelets (Bld) [#/Vol] 230 10*3/uL [place] RBC (Bld) [#/Vol] 4.84 10*6/uL 4.5 - 5.9 m/uL [place] WBC (Bld) [#/Vol] 9.6 10*3/uL [place] WBC (Bld) [#/Vol] NOT REPORTED per 100 WBC [place] Ferritinon 04-28-2020 Ferritin [Mass/Vol] 1111 ug/L High 30-400 [facility] Comment on above: Performed By: #### C DP, BMP, BNP, MG, TROPI #### [facility] [address] [place] [address] Shear Grinder Operator: Danis Adrian DO Ferritin [Mass/Vol] 1111 ug/L High 30 - 400 ug/L [place] Interpretation and review of laboratory results Abnormal [place] Lactate Dehydrogenason 04-28 Interpretation and review of laboratory results Abnormal [place] LD 366 U/L High 135 - 225 U/L [place] Lactate Dehydrogenaseon LDH [Catalytic activity/Vol] 366 U/L High 135-225 [facility] Comment on above: Performed By: #### C DP, BMP, BNP, MG, TROPI #### [facility] [address] [facility] [place] [address] Shear Grinder Operator: Danis Adrian DO Magnesiumon 04-28-2020 Magnesium [Mass/Vol] 2.4 mg/dL Normal 1.6-2.6 [facility] Comment on above: Performed By: #### C DP, BMP, BNP, MG, TROPI #### [facility] [address] [facility] [place] [address] Shear Grinder Operator: Danis Adrian DO Magnesium [Mass/Vol] 2.4 mg/dL 1.6 - 2.6 mg/dL [place] NA (Sodium)on 04-28-2020 Sodium [Moles/Vol] 128 mmol/L Low 135-144 [facility] Comment on above: Performed By: #### C DP, BMP, BNP, MG, TROPI #### [facility] [address] [facility] [place] [address] Shear Grinder Operator: Danis Adrian DO Interpretation and review of laboratory results Abnormal [place] Sodium [Moles/Vol] 128 mmol/L Low 135 - 144 mmol/L [place] Sodium [Moles/Vol] 131 mmol/L Low 135-144 [facility] Comment on above: Performed By: #### N A #### [facility] [address] [facility] [place] [address] Shear Grinder Operator: Danis Adrian DO Interpretation and review of laboratory results Abnormal [place] Sodium [Moles/Vol] 131 mmol/L Low 135 - 144 mmol/L [place] POC Glucose Fingerstickon Glucose [Mass/Vol] 306 mg/dL High 75 - 110 mg/dL [place] Interpretation and review of laboratory results Abnormal [place] Glucose [Mass/Vol] 308 mg/dL High 75 - 110 mg/dL [place] Interpretation and review of laboratory results Abnormal [place] Glucose [Mass/Vol] 301 mg/dL High 75 - 110 mg/dL [place] Interpretation and review of laboratory results Abnormal [place] Glucose [Mass/Vol] 207 mg/dL High 75 - 110 mg/dL [place] Interpretation and review of laboratory results Abnormal [place] Procalcitoninon 04-28-2020 Procalcitonin 0.16 ng/mL High <0.09 [facility] Comment on above: Result Comment: Suspected Sepsis: <0.50 ng/mL Low likelihood of sepsis. 0.50-2.00 ng/mL Increased likelihood of sepsis. Antibiotics encouraged. >2.00 ng/mL High risk of sepsis/shock. Antibiotics strongly encouraged. Suspected Lower Resp Tract Infections: <0.24 ng/mL Low likelihood of bacterial infection. >0.24 ng/mL Increased likelihood of bacterial infection. Antibiotics encouraged. With successful antibiotic therapy, PCT levels should decrease rapidly. (Half-life of 24 to 36 hours.) Procalcitonin values from samples collected within the first 6 hours of systemic infection may still be low. Retesting may be indicated. Values from day 1 and day 4 can be entered into the Change in Procalcitonin Calculator (www.jezcnh-nea-nvnbfikclb.Coinbase) to determine the patient's Mortality Risk Prognosis In healthy neonates, plasma Procalcitonin (PCT) concentrations increase gradually after , reaching peak values at about 24 hours of age then decrease to normal values below 0.5 ng/mL by 48-72 hours of age. Performed By: #### C DP, BMP, BNP, MG, TROPI #### [facility] [address] [place] [address] Shear Grinder Operator: Danis Adrian DO Interpretation and review of laboratory results Abnormal [place] Procalcitonin 0.16 ng/mL High <0.09 [place] Comment on above: Suspected Sepsis: <0.50 ng/mL Low likelihood of sepsis. 0.50-2.00 ng/mL Increased likelihood of sepsis. Antibiotics encouraged. >2.00 ng/mL High risk of sepsis/shock. Antibiotics strongly encouraged. Suspected Lower Resp Tract Infections: <0.24 ng/mL Low likelihood of bacterial infection. >0.24 ng/mL Increased likelihood of bacterial infection. Antibiotics encouraged. With successful antibiotic therapy, PCT levels should decrease rapidly. (Half-life of 24 to 36 hours.) Procalcitonin values from samples collected within the first 6 hours of systemic infection may still be low. Retesting may be indicated. Values from day 1 and day 4 can be entered into the Change in Procalcitonin Calculator (www.mybvni-rpy-rlzocwvlvs.Coinbase) to determine the patient's Mortality Risk Prognosis In healthy neonates, plasma Procalcitonin (PCT) concentrations increase gradually after , reaching peak values at about 24 hours of age then decrease to normal values below 0.5 ng/mL by 48-72 hours of age. BASIC METABOLIC PANEL Anion gap [Moles/Vol] 11 mmol/L 9 - 17 mmol/L [place] Bun/Cre Ratio NOT REPORTED [place], [place] Calcium [Mass/Vol] 8.3 mg/dL Low 8.6 - 10. 4 mg/dL [place] Chloride [Moles/Vol] 99 mmol/L 98 - 107 mmol/L [place] CO2 [Moles/Vol] 20 mmol/L 20 - 31 mmol/L [place] Creatinine [Mass/Vol] 1.64 mg/dL High 0.7 - 1.2 mg/dL [place] GFR 50 mL/min Low >60 [place] GFR Non- 41 mL/min Low >60 [place] GFR/1.73 sq M predicted among non-blacks MDRD (S/P/Bld) [Vol rate/Area] NOT REPORTED [place] GFR/1.73 sq M predicted among non-blacks MDRD (S/P/Bld) [Vol rate/Area] [place] Comment on above: Average GFR for 70 o r more years old: 75 mL/min/1.73sq m Chronic Kidney Disease: <60 mL/min/1.73sq m Kidney failure: <15 mL/min/1.73sq m eGFR calculated using average adult body mass. Additional eGFR calculator available at: http://www.[employer]/multiple_crcl_2012.htm Glucose [Mass/Vol] 175 mg/dL High 70 - 99 mg/dL [place] Potassium [Moles/Vol] 4.5 mmol/L 3.7 - 5.3 mmol/L [place] Sodium [Moles/Vol] 130 mmol/L Low 135 - 144 mmol/L [place] Urea nitrogen [Mass/Vol] 42 mg/dL High 8 - 23 mg/dL [place] Basic Metabolic Profon 04-27 (cont.) Normal [facility] Comment on above: Result Comment: Aver age GFR for 70 or more years old: 75 mL/min/1.73sq m Chronic Kidney Disease: <60 mL/min/1.73sq m Kidney failure: <15 mL/min/1.73sq m eGFR calculated using average adult body mass. Additional eGFR calculator available at: http://www.[employer]/multiple_crcl_2012.htm Performed By: #### N A #### [facility] [address] [facility] [place] [address] Shear Grinder Operator: Danis Adrian DO Anion gap [Moles/Vol] 11 mmol/L Normal 9-17 [facility] Comment on above: Performed By: #### N A #### [facility] [address] [facility] [place] [address] Shear Grinder Operator: Danis Adrian DO Calcium [Mass/Vol] 8.3 mg/dL Low 8.6-10.4 [facility] Comment on above: Performed By: #### N A #### [facility] [address] [facility] [place] [address] Shear Grinder Operator: Danis Adrian DO Chloride [Moles/Vol] 99 mmol/L Normal 98-107 [facility] Comment on above: Performed By: #### N A #### [facility] [address] [place] [address] Shear Grinder Operator: Danis Adrian DO CO2 [Moles/Vol] 20 mmol/L Normal 20-31 [facility] Comment on above: Performed By: #### N A #### [facility] [address] [place] [address] Shear Grinder Operator: Danis Adrian DO Creatinine [Mass/Vol] 1.64 mg/dL High 0.70-1.20 [facility] Comment on above: Performed By: #### N A #### [facility] [place] [address] Shear Grinder Operator: Danis Adrian DO GFR, Amer 50 mL/min Low >60 [facility] Comment on above: Performed By: #### N A #### [facility] [place] [address] Shear Grinder Operator: Danis Adrian DO GFR,non Amer 41 mL/min Low >60 [facility] Comment on above: Performed By: #### N A #### [facility] [place] [address] Shear Grinder Operator: Danis Adrian DO Glucose [Mass/Vol] 175 mg/dL High 70-99 [facility] Comment on above: Performed By: #### N A #### [facility] [place] [address] Shear Grinder Operator: Danis Adrian DO Potassium [Moles/Vol] 4.5 mmol/L Normal 3.7-5.3 [facility] Comment on above: Performed By: #### N A #### [facility] [address] [place] [address] Shear Grinder Operator: Danis Adrian DO Sodium [Moles/Vol] 130 mmol/L Low 135-144 [facility] Comment on above: Performed By: #### N A #### [facility] [address] [place] [address] Shear Grinder Operator: Danis Adrian DO Urea nitrogen [Mass/Vol] 42 mg/dL High 8-23 [facility] Comment on above: Performed By: #### N A #### [facility] [place] [address] Shear Grinder Operator: Danis Adrian DO BUN/CRE Ratio NOT REPORTED Normal 9-20 [facility] Comment on above: Performed By: #### N A #### [facility] [address] [place] [address] Shear Grinder Operator: Danis Adrian DO Staging: NOT REPORTED Normal [facility] Comment on above: Performed By: #### N A #### [facility] [address] [place] [address] Shear Grinder Operator: Danis Adrian DO C-Reactive Proteinon CRP [Mass/Vol] 54.3 mg/L High 0.0-5.0 [facility] Comment on above: Performed By: #### N A #### [facility] [address] [place] [address] Shear Grinder Operator: Danis Adrian DO CRP [Mass/Vol] 54.3 mg/L High 0 - 5 mg/L [place] CBCon 04-27-2020 Erythrocyte distribution width (RBC) [Ratio] 13.3 % Normal 11.5-14.9 [facility] Comment on above: Performed By: #### N A #### [facility] [address] [place] [address] Shear Grinder Operator: Danis Adrian DO Hematocrit (Bld) [Volume fraction] 42.1 % Normal 41-53 [facility] Comment on above: Performed By: #### N A #### [facility] [place] [address] Shear Grinder Operator: Danis Adrian DO Hemoglobin (Bld) [Mass/Vol] 14.4 g/dL Normal 13.5-17.5 [facility] Comment on above: Performed By: #### N A #### [facility] [address] [place] [address] Shear Grinder Operator: Danis Adrian DO MCH (RBC) [Entitic mass] 28.9 pg Normal 26-34 [facility] Comment on above: Performed By: #### N A #### [facility] [place] [address] Shear Grinder Operator: Danis Adrian DO MCHC (RBC) [Mass/Vol] 34.2 g/dL Normal 31-37 [facility] Comment on above: Performed By: #### N A #### [facility] [address] [place] [address] Shear Grinder Operator: Danis Adrian DO MCV (RBC) [Entitic vol] 84.5 fL Normal 80-100 [facility] Comment on above: Performed By: #### N A #### [facility] [address] [place] [address] Shear Grinder Operator: Danis Adrian DO Platelet mean volume (Bld) [Entitic vol] 9.7 fL Normal 6.0-12.0 [facility] Comment on above: Performed By: #### N A #### [facility] [address] [place] [address], [place] [address] Shear Grinder Operator: Danis Adrian DO Platelets (Bld) [#/Vol] 221 10*3/uL Normal 150-450 [facility] Comment on above: Performed By: #### N A #### [facility] [address] [place] [address] Shear Grinder Operator: Danis Adrian DO RBC (Bld) [#/Vol] 4.99 10*6/uL Normal 4.5-5.9 [facility] Comment on above: Performed By: #### N A #### [facility] [place] [address] Shear Grinder Operator: Danis Adrian DO WBC (Bld) [#/Vol] 8.7 10*3/uL Normal 3.5-11.0 [facility] Comment on above: Performed By: #### N A #### [facility] [facility] [place] [address] Shear Grinder Operator: Danis Adrian DO NRBC Automated NOT REPORTED Normal [facility] Comment on above: Performed By: #### N A #### [facility] [place] [address] Shear Grinder Operator: Danis Adrian DO Erythrocyte distribution width (RBC) [Ratio] 13.3 % 11.5 - 14.9 % [place] Hematocrit (Bld) [Volume fraction] 42.1 % 41 - 53 % [place] Hemoglobin (Bld) [Mass/Vol] 14.4 g/dL 13.5 - 17.5 g/dL [place] MCH (RBC) [Entitic mass] 28.9 pg 26 - 34 pg [place] MCHC (RBC) [Mass/Vol] 34.2 g/dL 31 - 37 g/dL [place] MCV (RBC) [Entitic vol] 84.5 fL 80 - 100 fL [place] Platelet mean volume (Bld) [Entitic vol] 9.7 fL 6 - 12 fL [place] Platelets (Bld) [#/Vol] 221 10*3/uL [place] RBC (Bld) [#/Vol] 4.99 10*6/uL 4.5 - 5.9 m/uL [place] WBC (Bld) [#/Vol] NOT REPORTED per 100 WBC [place] WBC (Bld) [#/Vol] 8.7 10*3/uL [place] Liver Profileon 04-27-2020 Albumin [Mass/Vol] 3.1 g/dL Low 3.5-5.2 [facility] Comment on above: Performed By: #### N A #### [facility] [address] [place] [address] Shear Grinder Operator: Danis Adrian DO Alkaline Phos 58 U/L Normal 40-129 [facility] Comment on above: Performed By: #### N A #### [facility] [address] [place] [address] Shear Grinder Operator: Danis Adrian DO ALT [Catalytic activity/Vol] 28 U/L Normal 5-41 [facility] Comment on above: Performed By: #### N A #### [facility] [address] [place] [address] Shear Grinder Operator: Danis Adrian DO AST [Catalytic activity/Vol] 28 U/L Normal <40 [facility] Comment on above: Performed By: #### N A #### [facility] [address] [place] [address] Shear Grinder Operator: Danis Adrian DO Bilirubin Ql (U) 0.26 mg/dL Low 0.3-1.2 [facility] Comment on above: Performed By: #### N A #### [facility] [address] [facility] [place] [address] Shear Grinder Operator: Danis Adrian DO Bilirubin, Indirect 0.15 mg/dL Normal 0.00-1.00 [facility] Comment on above: Performed By: #### N A #### [facility] [address] [facility] [place] [address] Shear Grinder Operator: Danis Adrian DO Bilirubin.direct [Mass/Vol] 0.11 mg/dL Normal <0.31 [facility] Comment on above: Performed By: #### N A #### [facility] [address] [facility] [place] [address] Shear Grinder Operator: Danis Adrian DO Protein [Mass/Vol] 6.2 g/dL Low 6.4-8.3 [facility] Comment on above: Performed By: #### N A #### [facility] [place] [address] Shear Grinder Operator: Danis Adrian DO Albumin/Globulin [Mass ratio] NOT REPORTED Normal 1.0-2.5 [facility] Comment on above: Performed By: #### N A #### [facility] [facility] [place] [address] Shear Grinder Operator: Danis Adrian DO Globulin (S) [Mass/Vol] NOT REPORTED Normal 1.5-3.8 [facility] Comment on above: Performed By: #### N A #### [facility] [address] [facility] [place] [address] Shear Grinder Operator: Danis Adrian DO Albumin [Mass/Vol] 3.1 g/dL Low 3.5 - 5.2 g/dL [facility], [place] Albumin/Globulin [Mass ratio] NOT REPORTED [facility], [place] ALP [Catalytic activity/Vol] 58 U/L 40 - 129 U/L [place] ALT [Catalytic activity/Vol] 28 U/L 5 - 41 U/L [place] AST [Catalytic activity/Vol] 28 U/L <40 [place] Bilirubin Ql (U) 0.26 mg/dL Low 0.3 - 1.2 mg/dL [place] Bilirubin, Indirect 0.15 mg/dL 0 - 1 mg/dL [place] Bilirubin.direct [Mass/Vol] 0.11 mg/dL <0.31 [place] Globulin (S) [Mass/Vol] NOT REPORTED 1.5 - 3.8 g/dL [place] Protein [Mass/Vol] 6.2 g/dL Low 6.4 - 8.3 g/dL [place] Magnesiumon 04-27-2020 Magnesium [Mass/Vol] 2.5 mg/dL Normal 1.6-2.6 [facility] Comment on above: Performed By: #### N A #### [facility] [address] [place], [place] [address] Shear Grinder Operator: Danis Adrian DO Magnesium [Mass/Vol] 2.5 mg/dL 1.6 - 2.6 mg/dL [place] NA (Sodium)on 04-27-2020 Sodium [Moles/Vol] 128 mmol/L Low 135-144 [facility] Comment on above: Performed By: #### N A #### [facility] [address] [place], [place] [id number] Shear Grinder Operator: Danis Adrian DO Interpretation and review of laboratory results Abnormal [place] Sodium [Moles/Vol] 128 mmol/L Low 135 - 144 mmol/L [place] Sodium [Moles/Vol] 128 mmol/L Low 135-144 [facility] Comment on above: Performed By: #### N A #### [facility] [address] [place] [address] Shear Grinder Operator: Danis Adrian DO Interpretation and review of laboratory results Abnormal [place] Sodium [Moles/Vol] 128 mmol/L Low 135 - 144 mmol/L [place] Sodium [Moles/Vol] 129 mmol/L Low 135-144 [facility] Comment on above: Performed By: #### C DP, BMP, BNP, MG, TROPI #### [facility] [address] [place] [address] Shear Grinder Operator: Danis Adrian DO Interpretation and review of laboratory results Abnormal [place] Sodium [Moles/Vol] 129 mmol/L Low 135 - 144 mmol/L [place] Otheron 04-27-2020 Interpretation and review of laboratory results Abnormal [place] POC Glucose Fingerstickon Glucose [Mass/Vol] 292 mg/dL High 75 - 110 mg/dL [place] Interpretation and review of laboratory results Abnormal [place] Glucose [Mass/Vol] 218 mg/dL High 75 - 110 mg/dL [place] Interpretation and review of laboratory results Abnormal [place] Glucose [Mass/Vol] 200 mg/dL High 75 - 110 mg/dL [place] Interpretation and review of laboratory results Abnormal [place] XR CHEST PORTABLEon 04-27-19 21 XR CHEST PORTABLE EXAMINATION: ONE XRAY VIEW OF THE CHEST 04/27/2020 6:45 am COMPARISON: April 23, 2020, chest exam HISTORY: ORDERING SYSTEM PROVIDED HISTORY: COVID-19 pneumonia TECHNOLOGIST PROVIDED HISTORY: COVID-19 pneumonia Reason for Exam: cough, congestion, hx. of Covid-19 Acuity: Acute Type of Exam: Subsequent/Follow-up FINDINGS: Stable cardiac silhouette Interval progression in asymmetric, left greater than right, ground-glass infiltrates predominating in the perihilar and lung bases No definite pleural process IMPRESSION: Progression in bilateral ground-glass infiltrates, findings consistent with progression in multifocal pneumonia Interpreted by: Lorin French MD Signed by: Lorin French MD 04/27/20 Final result Normal [facility], [facility] Incoming Radiant Results From [employer] - 04/27/2020 7:46 AM EST EXAMINATION: ONE XRAY VIEW OF THE CHEST 04/27/2020 6:45 am COMPARISON: April 23, 2020, chest exam HISTORY: ORDERING SYSTEM PROVIDED HISTORY: COVID-19 pneumonia TECHNOLOGIST PROVIDED HISTORY: COVID-19 pneumonia Reason for Exam: cough, congestion, hx. of Covid-19 Acuity: Acute Type of Exam: Subsequent/Follow-up FINDINGS: Stable cardiac silhouette Interval progression in asymmetric, left greater than right, ground-glass infiltrates predominating in the perihilar and lung bases No definite pleural process IMPRESSION: Progression in bilateral ground-glass infiltrates, findings consistent with progression in multifocal pneumonia [place] EXAMINATION: ONE XRA Y VIEW OF THE CHEST 04/27/2020 6:45 am COMPARISON: April 23, 2020, chest exam HISTORY: ORDERING SYSTEM PROVIDED HISTORY: COVID- pneumonia TECHNOLOGIST PROVIDED HISTORY: COVID- pneumonia Reason for Exam: cough, congestion, hx. of Covid-19 Acuity: Acute Type of Exam: Subsequent/Follow-up FINDINGS: Stable cardiac silhouette Interval progression in asymmetric, left greater than right, ground-glass infiltrates predominating in the perihilar and lung bases No definite pleural process [place] Progression in bilateral ground-glass infiltrates, findings consistent with progression in multifocal pneumonia [place] BASIC METABOLIC PANELon Anion gap [Moles/Vol] 11 mmol/L 9 - 17 mmol/L [place] Bun/Cre Ratio NOT REPORTED [place], [place] Calcium [Mass/Vol] 8.4 mg/dL Low 8.6 - 10. 4 mg/dL [place] Chloride [Moles/Vol] 100 mmol/L 98 - 107 mmol/L [place] CO2 [Moles/Vol] 21 mmol/L 20 - 31 mmol/L [place] Creatinine [Mass/Vol] 1.93 mg/dL High 0.7 - 1.2 mg/dL [place] GFR 41 mL/min Low >60 [place] GFR Non- 34 mL/min Low >60 [place] GFR/1.73 sq M predicted among non-blacks MDRD (S/P/Bld) [Vol rate/Area] [place] Comment on above: Average GFR for 70 o r more years old: 75 mL/min/1.73sq m Chronic Kidney Disease: <60 mL/min/1.73sq m Kidney failure: <15 mL/min/1.73sq m eGFR calculated using average adult body mass. Additional eGFR calculator available at: http://www.[employer]/multiple_crcl_2012.htm GFR/1.73 sq M predicted among non-blacks MDRD (S/P/Bld) [Vol rate/Area] NOT REPORTED [place] Glucose [Mass/Vol] 147 mg/dL High 70 - 99 mg/dL [place] Potassium [Moles/Vol] 4.5 mmol/L 3.7 - 5.3 mmol/L [place] Sodium [Moles/Vol] 132 mmol/L Low 135 - 144 mmol/L [place] Urea nitrogen [Mass/Vol] 43 mg/dL High 8 - 23 mg/dL [place] Basic Metabolic Profon 04-26 (cont.) Normal [facility] Comment on above: Result Comment: Aver age GFR for 70 or more years old: 75 mL/min/1.73sq m Chronic Kidney Disease: <60 mL/min/1.73sq m Kidney failure: <15 mL/min/1.73sq m eGFR calculated using average adult body mass. Additional eGFR calculator available at: http://www.[employer]/multiple_crcl_2012.htm Performed By: #### N A #### [facility] [address] [facility] [address]. [place], [place] [id number] [employer]ar Grinder Operator: Danis Adrian DO Anion gap [Moles/Vol] 11 mmol/L Normal - [facility] Comment on above: Performed By: #### N A #### [facility] [address] [facility] [address] [place], [place] [id number] [employer] Gr[employer] Operator: Fanelly, Danis, DO Calcium [Mass/Vol] 8.4 mg/dL Low 8.6-10.4 [facility] Comment on above: Performed By: #### N A #### [facility] [address] [place] [address] Shear Grinder Operator: Danis Adrian DO Chloride [Moles/Vol] 100 mmol/L Normal 98-107 [facility] Comment on above: Performed By: #### N A #### [facility] [address] [place] [address] [employer]ar Grinder Operator: Danis Adrian DO CO2 [Moles/Vol] 21 mmol/L Normal 20-31 [facility] Comment on above: Performed By: #### N A #### [facility] [place] [address] Shear Grinder Operator: Danis Adrian DO Creatinine [Mass/Vol] 1.93 mg/dL High 0.70-1.20 [facility] Comment on above: Performed By: #### N A #### [facility] [facility] [place] [address] Shear Grinder Operator: Danis Adrian DO GFR, Amer 41 mL/min Low >60 [facility] Comment on above: Performed By: #### N A #### [facility] [address] [place] [address] Shear Grinder Operator: Danis dArian DO GFR,non Amer 34 mL/min Low >60 [facility] Comment on above: Performed By: #### N A #### [facility] [address] [place] [address] Shear Grinder Operator: Danis Adrian DO Glucose [Mass/Vol] 147 mg/dL High 70-99 [facility] Comment on above: Performed By: #### N A #### [facility] [address] [place] [address] [employer]ar Grinder Operator: Danis Adrian DO Potassium [Moles/Vol] 4.5 mmol/L Normal 3.7-5.3 [facility] Comment on above: Performed By: #### N A #### [facility] [address] [place] [address] Shear Grinder Operator: Danis Adrian DO Sodium [Moles/Vol] 132 mmol/L Low 135-144 [facility] Comment on above: Performed By: #### N A #### [facility] [address] [place] [address] Shear Grinder Operator: Danis Adrian DO Urea nitrogen [Mass/Vol] 43 mg/dL High 8-23 [facility] Comment on above: Performed By: #### N A #### [facility] [address] [place] [address] Shear Grinder Operator: Danis Adrian DO BUN/CRE Ratio NOT REPORTED Normal 9-20 [facility] Comment on above: Performed By: #### N A #### [facility] [address] [place] [address] Shear Grinder Operator: Danis Adrian DO Staging: NOT REPORTED Normal [facility] Comment on above: Performed By: #### N A #### [facility] [address] [place] [address] Shear Grinder Operator: Danis Adrian DO C-REACTIVE PROTEINon 021 CRP [Mass/Vol] 47.8 mg/L High 0 - 5 mg/L [facility] [place] C-Reactive Proteinon 021 CRP [Mass/Vol] 47.8 mg/L High 0.0-5.0 [facility] Comment on above: Performed By: #### N A #### [facility] [address] [place] [address] Shear Grinder Operator: Danis Adrian DO CBCon 04-26-2020 Erythrocyte distribution width (RBC) [Ratio] 13.3 % Normal 11.5-14.9 [facility] Comment on above: Performed By: #### N A #### [facility] [place] [address] Shear Grinder Operator: Danis Adrian DO Hematocrit (Bld) [Volume fraction] 41.4 % Normal 41-53 [facility] Comment on above: Performed By: #### N A #### [facility] [place] [address] Shear Grinder Operator: Danis Adrian DO Hemoglobin (Bld) [Mass/Vol] 13.8 g/dL Normal 13.5-17.5 [facility] Comment on above: Performed By: #### N A #### [facility] [place] [address] Shear Grinder Operator: Danis Adrian DO MCH (RBC) [Entitic mass] 28.4 pg Normal 26-34 [facility] Comment on above: Performed By: #### N A #### [facility] [place] [address] Shear Grinder Operator: Danis Adrian DO MCHC (RBC) [Mass/Vol] 33.4 g/dL Normal 31-37 [facility] Comment on above: Performed By: #### N A #### [facility] [place] [address] Shear Grinder Operator: Danis Adrian DO MCV (RBC) [Entitic vol] 84.9 fL Normal 80-100 [facility] Comment on above: Performed By: #### N A #### [facility] [address] [place] [address] [place] [address] Shear Grinder Operator: Danis Adrian DO Platelet mean volume (Bld) [Entitic vol] 9.1 fL Normal 6.0-12.0 [facility] Comment on above: Performed By: #### N A #### [facility] [place] [address] Shear Grinder Operator: Danis Adrian DO Platelets (Bld) [#/Vol] 230 10*3/uL Normal 150-450 [facility] Comment on above: Performed By: #### N A #### [facility] [address] [place] [address] Shear Grinder Operator: Danis Adrian DO RBC (Bld) [#/Vol] 4.88 10*6/uL Normal 4.5-5.9 [facility] Comment on above: Performed By: #### N A #### [facility] [address] [place] [address] Shear Grinder Operator: Danis Adrian DO WBC (Bld) [#/Vol] 13.6 10*3/uL High 3.5-11.0 [facility] Comment on above: Performed By: #### N A #### [facility] [address] [place] [address] Shear Grinder Operator: Danis Adrian DO NRBC Automated NOT REPORTED Normal [facility] Comment on above: Performed By: #### N A #### [facility] [place] [address] Shear Grinder Operator: Danis Adrian DO Erythrocyte distribution width (RBC) [Ratio] 13.3 % 11.5 - 14.9 % [place] Hematocrit (Bld) [Volume fraction] 41.4 % 41 - 53 % [place] Hemoglobin (Bld) [Mass/Vol] 13.8 g/dL 13.5 - 17.5 g/dL [place] Interpretation and review of laboratory results Abnormal [place] MCH (RBC) [Entitic mass] 28.4 pg 26 - 34 pg [place] MCHC (RBC) [Mass/Vol] 33.4 g/dL 31 - 37 g/dL [place] MCV (RBC) [Entitic vol] 84.9 fL 80 - 100 fL [place] Platelet mean volume (Bld) [Entitic vol] 9.1 fL 6 - 12 fL [place] Platelets (Bld) [#/Vol] 230 10*3/uL [place] RBC (Bld) [#/Vol] 4.88 10*6/uL 4.5 - 5.9 m/uL [place] WBC (Bld) [#/Vol] 13.6 10*3/uL [place] WBC (Bld) [#/Vol] NOT REPORTED per 100 WBC [place], [place] CT CHEST WO CONTRASTon 04-26 CT CHEST WO CONTRAST EXAMINATION: CT OF THE CHEST WITHOUT CONTRAST 04/25/2020 9:45 pm TECHNIQUE: CT of the chest was performed without the administration of intravenous contrast. Multiplanar reformatted images are provided for review. Dose modulation, iterative reconstruction, and/or weight based adjustment of the mA/kV was utilized to reduce the radiation dose to as low as reasonably achievable. COMPARISON: None. HISTORY: ORDERING SYSTEM PROVIDED HISTORY: look for covid pneumonia or for consolidation Left lower lobe TECHNOLOGIST PROVIDED HISTORY: look for covid pneumonia or for consolidation Left lower lobe Reason for Exam: look for covid pneumonia or for consolidation Left lower lobe Acuity: Unknown Type of Exam: Unknown FINDINGS: Mediastinum: No gross mediastinal lymphadenopathy. No pericardial effusion. Heart size within normal limits. Trachea and esophagus are unremarkable. Thoracic aorta normal in caliber. Lungs/pleura: Severe upper lung zone predominant emphysematous changes. Patchy ground-glass opacities in the lower lung zones. No focal consolidation. Upper Abdomen: indeterminate hepatic hypodensities are present Soft Tissues/Bones: No acute findings. IMPRESSION: Severe emphysema. Patchy ground-glass opacities in the lower lung zones may represent COVID-19 infection Indeterminate hepatic hypodensities. RECOMMENDATIONS: CT abdomen with contrast when clinically appropriate. Interpreted by: Enrique Valentino MD Signed by: Enrique Valentino MD 04/25/20 Final result Normal [facility] Ferritinon 04-26-2020 Ferritin [Mass/Vol] 906 ug/L High 30-400 [facility] Comment on above: Performed By: #### N A #### [facility] [address] [facility] [place] [address] Shear Grinder Operator: Danis Adrian DO Magnesiumon 04-26-2020 Magnesium [Mass/Vol] 2.4 mg/dL Normal 1.6-2.6 [facility] Comment on above: Performed By: #### N A #### [facility] [address] [facility] [place] [address] Shear Grinder Operator: Danis Adrian DO Magnesium [Mass/Vol] 2.4 mg/dL 1.6 - 2.6 mg/dL [place] NA (Sodium)on 04-26-2020 Sodium [Moles/Vol] 130 mmol/L Low 135-144 [facility] Comment on above: Performed By: #### N A #### [facility] [address] [facility] [place] [address] Shear Grinder Operator: Danis Adrian DO Interpretation and review of laboratory results Abnormal [place] Sodium [Moles/Vol] 130 mmol/L Low 135 - 144 mmol/L [place] Sodium [Moles/Vol] 131 mmol/L Low 135-144 [facility] Comment on above: Performed By: #### N A #### [facility] [address] [facility] [place] [address] Shear Grinder Operator: Danis Adrian DO Interpretation and review of laboratory results Abnormal [place] Sodium [Moles/Vol] 131 mmol/L Low 135 - 144 mmol/L [place] Sodium [Moles/Vol] 129 mmol/L Low 135-144 [facility] Comment on above: Performed By: #### N A #### [facility] [address] [facility] [place], [place] [id number] Shear Grinder Operator: Danis Adrian DO Interpretation and review of laboratory results Abnormal [place] Sodium [Moles/Vol] 129 mmol/L Low 135 - 144 mmol/L [place] Otheron 04-26-2020 Interpretation and review of laboratory results Abnormal [place] POC Glucose Fingerstickon Glucose [Mass/Vol] 231 mg/dL High 75 - 110 mg/dL [place] Interpretation and review of laboratory results Abnormal [place] Glucose [Mass/Vol] 224 mg/dL High 75 - 110 mg/dL [place] Interpretation and review of laboratory results Abnormal [place] Glucose [Mass/Vol] 149 mg/dL High 75 - 110 mg/dL [place] Interpretation and review of laboratory results Abnormal [place] Glucose [Mass/Vol] 150 mg/dL High 75 - 110 mg/dL [place] Interpretation and review of laboratory results Abnormal [place] ABO/RHon 04-25-2020 ABO and Rh group Nom (Bld) PATIENT'S ABORH CONFIRMED O POS:004 Results Verified [place] ABO/Rh Positive [place] ABO/Rh(D)on 04-25-2020 ABO/Rh(D) ABO/Rh(D) O POSITIVE Blood Bank Comment PATIENT'S ABORH CONFIRMED O POS:004 Results Verified Normal [facility] Comment on above: Performed By: #### C DP, BMP, BNP, MG, TROPI #### [facility] [address] [place], [place] [id number] Shear Grinder Operator: Danis Adrian DO BASIC METABOLIC PANELon Anion gap [Moles/Vol] 12 mmol/L 9 - 17 mmol/L [place] Bun/Cre Ratio NOT REPORTED [facility] [place] Calcium [Mass/Vol] 8.4 mg/dL Low 8.6 - 10. 4 mg/dL [place] Chloride [Moles/Vol] 97 mmol/L Low 98 - 107 mmol/L [place] CO2 [Moles/Vol] 21 mmol/L 20 - 31 mmol/L [place] Creatinine [Mass/Vol] 2.15 mg/dL High 0.7 - 1.2 mg/dL [place] GFR 36 mL/min Low >60 [place] GFR Non- 30 mL/min Low >60 [place] GFR/1.73 sq M predicted among non-blacks MDRD (S/P/Bld) [Vol rate/Area] [place] Comment on above: Average GFR for 70 o r more years old: 75 mL/min/1.73sq m Chronic Kidney Disease: <60 mL/min/1.73sq m Kidney failure: <15 mL/min/1.73sq m eGFR calculated using average adult body mass. Additional eGFR calculator available at: http://www.[employer]/multiple_crcl_2012.htm GFR/1.73 sq M predicted among non-blacks MDRD (S/P/Bld) [Vol rate/Area] NOT REPORTED [place] Glucose [Mass/Vol] 255 mg/dL High 70 - 99 mg/dL [place] Interpretation and review of laboratory results Abnormal [place] Potassium [Moles/Vol] 4.5 mmol/L 3.7 - 5.3 mmol/L [place] Sodium [Moles/Vol] 130 mmol/L Low 135 - 144 mmol/L [place] Urea nitrogen [Mass/Vol] 43 mg/dL High 8 - 23 mg/dL [place] Basic Metabolic Profon 04-25 (cont.) Normal [facility] Comment on above: Result Comment: Aver age GFR for 70 or more years old: 75 mL/min/1.73sq m Chronic Kidney Disease: <60 mL/min/1.73sq m Kidney failure: <15 mL/min/1.73sq m eGFR calculated using average adult body mass. Additional eGFR calculator available at: http://www.[employer]/multiple_crcl_2012.htm Performed By: #### N A #### [facility] [address] [place] [address] Shear Grinder Operator: Danis Adrian DO Anion gap [Moles/Vol] 12 mmol/L Normal 9-17 [facility] Comment on above: Performed By: #### N A #### [facility] [place] [address] Shear Grinder Operator: Danis Adrian DO Calcium [Mass/Vol] 8.4 mg/dL Low 8.6-10.4 [facility] Comment on above: Performed By: #### N A #### [facility] [facility] [place] [address] Shear Grinder Operator: Danis Adrian DO Chloride [Moles/Vol] 97 mmol/L Low 98-107 [facility] Comment on above: Performed By: #### N A #### [facility] [place] [address] Shear Grinder Operator: Danis Adrian DO CO2 [Moles/Vol] 21 mmol/L Normal 20-31 [facility] Comment on above: Performed By: #### N A #### [facility] [place] [address] Shear Grinder Operator: Danis Adrian DO Creatinine [Mass/Vol] 2.15 mg/dL High 0.70-1.20 [facility] Comment on above: Performed By: #### N A #### [facility] [place] [address] Shear Grinder Operator: Danis Adrian DO GFR, Amer 36 mL/min Low >60 [facility] Comment on above: Performed By: #### N A #### [facility] [address] [place] [address] Shear Grinder Operator: Danis Adrian DO GFR,non Amer 30 mL/min Low >60 [facility] Comment on above: Performed By: #### N A #### [facility] [facility] [place] [address] Shear Grinder Operator: Danis Adrian DO Glucose [Mass/Vol] 255 mg/dL High 70-99 [facility] Comment on above: Performed By: #### N A #### [facility] [address] [place] [address] Shear Grinder Operator: Danis Adrian DO Potassium [Moles/Vol] 4.5 mmol/L Normal 3.7-5.3 [facility] Comment on above: Performed By: #### N A #### [facility] [place] [address] Shear Grinder Operator: Danis Adrian DO Sodium [Moles/Vol] 130 mmol/L Low 135-144 [facility] Comment on above: Performed By: #### N A #### [facility] [place] [address] Shear Grinder Operator: Danis Adrian DO Urea nitrogen [Mass/Vol] 43 mg/dL High 8-23 [facility] Comment on above: Performed By: #### N A #### [facility] [address] [place] [address] Shear Grinder Operator: Danis Adrian DO BUN/CRE Ratio NOT REPORTED Normal 9-20 [facility] Comment on above: Performed By: #### N A #### [facility] [address] [place] [address] Shear Grinder Operator: Danis Adrian DO Staging: NOT REPORTED Normal [facility] Comment on above: Performed By: #### N A #### [facility] [place] [address] Shear Grinder Operator: Danis Adrian DO C-Reactive Proteinon CRP [Mass/Vol] 20.4 mg/L High 0.0-5.0 [facility] Comment on above: Performed By: #### N A #### [facility] [address] [place] [address] Shear Grinder Operator: Danis Adrian DO CRP [Mass/Vol] 20.4 mg/L High 0 - 5 mg/L [place] Interpretation and review of laboratory results Abnormal [place] CBCon 04-25-2020 Erythrocyte distribution width (RBC) [Ratio] 13.2 % Normal 11.5-14.9 [facility] Comment on above: Performed By: #### N A #### [facility] [address] [place] [address] Shear Grinder Operator: Danis Adrina DO Hematocrit (Bld) [Volume fraction] 42.2 % Normal 41-53 [facility] Comment on above: Performed By: #### N A #### [facility] [address] [place] [address] Shear Grinder Operator: Danis Adrian DO Hemoglobin (Bld) [Mass/Vol] 14.3 g/dL Normal 13.5-17.5 [facility] Comment on above: Performed By: #### N A #### [facility] [address] [place], [place] [address] [place] [address] Shear Grinder Operator: Danis Adrian DO MCH (RBC) [Entitic mass] 28.5 pg Normal 26-34 [facility] Comment on above: Performed By: #### N A #### [facility] [place] [address] Shear Grinder Operator: Danis Adrian DO MCHC (RBC) [Mass/Vol] 33.8 g/dL Normal 31-37 [facility] Comment on above: Performed By: #### N A #### [facility] [address] [place] [address] Shear Grinder Operator: Danis Adrian DO MCV (RBC) [Entitic vol] 84.4 fL Normal 80-100 [facility] Comment on above: Performed By: #### N A #### [facility] [address] [place] [address] Shear Grinder Operator: Danis Adrian DO Platelet mean volume (Bld) [Entitic vol] 8.8 fL Normal 6.0-12.0 [facility] Comment on above: Performed By: #### N A #### [facility] [address] [place] [address] Shear Grinder Operator: Danis Adrian DO Platelets (Bld) [#/Vol] 240 10*3/uL Normal 150-450 [facility] Comment on above: Performed By: #### N A #### [facility] [address] [place] [address] Shear Grinder Operator: Danis Adrian DO RBC (Bld) [#/Vol] 5.00 10*6/uL Normal 4.5-5.9 [facility] Comment on above: Performed By: #### N A #### [facility] [address] [place] [address] Shear Grinder Operator: Danis Adrian DO WBC (Bld) [#/Vol] 14.1 10*3/uL High 3.5-11.0 [facility] Comment on above: Performed By: #### N A #### [facility] [address] [facility] [place] [address] Shear Grinder Operator: Danis Adrian DO NRBC Automated NOT REPORTED Normal [facility] Comment on above: Performed By: #### N A #### [facility] [address] [place], [place] [id number] Shear Grinder Operator: Danis Adrian DO Erythrocyte distribution width (RBC) [Ratio] 13.2 % 11.5 - 14.9 % [place] Hematocrit (Bld) [Volume fraction] 42.2 % 41 - 53 % [place] Hemoglobin (Bld) [Mass/Vol] 14.3 g/dL 13.5 - 17.5 g/dL [place] Interpretation and review of laboratory results Abnormal [place] MCH (RBC) [Entitic mass] 28.5 pg 26 - 34 pg [place] MCHC (RBC) [Mass/Vol] 33.8 g/dL 31 - 37 g/dL [place] MCV (RBC) [Entitic vol] 84.4 fL 80 - 100 fL [place] Platelet mean volume (Bld) [Entitic vol] 8.8 fL 6 - 12 fL [place] Platelets (Bld) [#/Vol] 240 10*3/uL [place] RBC (Bld) [#/Vol] 5.00 10*6/uL 4.5 - 5.9 m/uL [place] WBC (Bld) [#/Vol] NOT REPORTED per 100 WBC [place] WBC (Bld) [#/Vol] 14.1 10*3/uL [place] CONSULTATIONon 04-25-2020 CONSULTATION [facility] [address] [place] [id number] CONSULTATION PATIENT NAME: JOURDAN AREVALO : 1945 MED REC NO: [id number] ROOM: 021 ACCOUNT NO: [id number] ADMIT DATE: 04/23/2020 PROVIDER: Ramya Navarro CONSULT DATE: 04/24/2020 REASON FOR CONSULTATION: Hypoxemia, COVID-19 pneumonia. HISTORY OF PRESENT ILLNESS: The patient is a very pleasant 74-year-old male. He presented to the ED. He describes some low grade fever, some shortness of breath, some headache, some cough. Reportedly, he underwent a COVID-19 test on 04/20/2020. He showed me the paperwork of prior exam that was positive. He did the test because he was feeling weak with some myalgias and he wanted to take the test because of protecting his grandchildren. Of note, reportedly he had worsening shortness of breath and some low grade fever starting on 04/23/2020. The patient underwent a chest x-ray that revealed a left lower lobe process. Other lab work included a BUN and creatinine of 32/2.49, CRP elevated at , LD normal at 220. free-ferritin elevated at 582. D-dimer normal at 0.53, procalcitonin level 0.21, which places him in the category of low suspicion of sepsis and low suspicion of bacterial lower respiratory tract infection. PAST MEDICAL HISTORY: Notable for history of chronic kidney disease. He also has a diagnosis for diabetes, hyperlipidemia, hypertension, and COPD. SOCIAL HISTORY: Reportedly, a non-smoker. MEDICATIONS: Per Roldan camargo. According to the computer chart, no pulmonary medications per se. ALLERGIES: None. REVIEW OF SYSTEMS: Noncontributory. PHYSICAL EXAMINATION: GENERAL: The patient is a 74-year-old male, resting quietly. VITAL SIGNS: Blood pressure 139/69, heart rate 77, respirations 16, temperature max 98, O2 saturations 93% to 97% on 2 L nasal cannula. HEENT: No supraclavicular lymph node enlargement. LUNGS: Clear posteriorly. No crackles, rales or wheezes. CARDIOVASCULAR: Regular rhythm. ABDOMEN: Soft. EXTREMITIES: Edema present. LABORATORY RESULTS: BUN and creatinine 42/2.23, stabilizing if not slightly improved from the initial BUN and creatinine of 32/2.49. White count is normal at 8.7, platelet count 230, hemoglobin 13.8, D-dimer is normal. IMPRESSION: 1. The patient has a diagnosis of acute respiratory failure with hypoxemia. 2. Acute kidney injury. 3. Presently under investigation for COVID-19. PLAN: 1. For now, the patient is on albuterol and ipratropium HFAs. 2. On Decadron. 3. On DVT prophylaxis with heparin. 4. On Rocephin and Zithromax. We will follow the patient while in-house and thank you Dr. Gil for the consult. RAMYA NAVARRO DB/[id number]_T Doc#: [id number] CC: [facility] CT CHEST WO CONTRASTon 04-25 James, Mhpn Incoming Radiant Results From [employer] - 04/25/2020 10:30 PM EST EXAMINATION: CT OF THE CHEST WITHOUT CONTRAST 04/25/2020 9:45 pm TECHNIQUE: CT of the chest was performed without the administration of intravenous contrast. Multiplanar reformatted images are provided for review. Dose modulation, iterative reconstruction, and/or weight based adjustment of the mA/kV was utilized to reduce the radiation dose to as low as reasonably achievable. COMPARISON: None. HISTORY: ORDERING SYSTEM PROVIDED HISTORY: look for covid pneumonia or for consolidation Left lower lobe TECHNOLOGIST PROVIDED HISTORY: look for covid pneumonia or for consolidation Left lower lobe Reason for Exam: look for covid pneumonia or for consolidation Left lower lobe Acuity: Unknown Type of Exam: Unknown FINDINGS: Mediastinum: No gross mediastinal lymphadenopathy. No pericardial effusion. Heart size within normal limits. Trachea and esophagus are unremarkable. Thoracic aorta normal in caliber. Lungs/pleura: Severe upper lung zone predominant emphysematous changes. Patchy ground-glass opacities in the lower lung zones. No focal consolidation. Upper Abdomen: indeterminate hepatic hypodensities are present Soft Tissues/Bones: No acute findings. IMPRESSION: Severe emphysema. Patchy ground-glass opacities in the lower lung zones may represent COVID-19 infection Indeterminate hepatic hypodensities. RECOMMENDATIONS: CT abdomen with contrast when clinically appropriate. [facility] [place], [place] EXAMINATION: CT OF T HE CHEST WITHOUT CONTRAST 04/25/2020 9:45 pm TECHNIQUE: CT of the chest was performed without the administration of intravenous contrast. Multiplanar reformatted images are provided for review. Dose modulation, iterative reconstruction, and/or weight based adjustment of the mA/kV was utilized to reduce the radiation dose to as low as reasonably achievable. COMPARISON: None. HISTORY: ORDERING SYSTEM PROVIDED HISTORY: look for covid pneumonia or for consolidation Left lower lobe TECHNOLOGIST PROVIDED HISTORY: look for covid pneumonia or for consolidation Left lower lobe Reason for Exam: look for covid pneumonia or for consolidation Left lower lobe Acuity: Unknown Type of Exam: Unknown FINDINGS: Mediastinum: No gross mediastinal lymphadenopathy. No pericardial effusion. Heart size within normal limits. Trachea and esophagus are unremarkable. Thoracic aorta normal in caliber. Lungs/pleura: Severe upper lung zone predominant emphysematous changes. Patchy ground-glass opacities in the lower lung zones. No focal consolidation. Upper Abdomen: indeterminate hepatic hypodensities are present Soft Tissues/Bones: No acute findings. [place], [place] Severe emphysema. Patchy ground-glass opacities in the lower lung zones may represent COVID-19 infection Indeterminate hepatic hypodensities. RECOMMENDATIONS: CT abdomen with contrast when clinically appropriate. [place], [place] Ferritinon 04-25-2020 Ferritin [Mass/Vol] 906 ug/L High 30 - 400 ug/L [place] Interpretation and review of laboratory results Abnormal [place] Hemoglobin A1Con 04-25-2020 HbA1c (Bld) [Mass fraction] 7.2 % High 4.0-6.0 [facility] Comment on above: Performed By: #### N A #### [facility] [address] [place] [address] Shear Grinder Operator: Danis Adrian DO HbA1c (Bld) [Mass fraction] 160 mg/dL Normal [facility] Comment on above: Result Comment: The ADA and AACC recommend providing the estimated average glucose result to permit better patient understanding of their HBA1c result. Performed By: #### N A #### [facility] [address] [place] [address] Shear Grinder Operator: Danis Adrian DO Glucose [Mass/Vol] 160 mg/dL [place] Comment on above: The ADA and AACC rec ommend providing the estimated average glucose result to permit better patient understanding of their HBA1c result. HbA1c (Bld) [Mass fraction] 7.2 % High 4 - 6 % [place] Interpretation and review of laboratory results Abnormal [place] Hepatic Function Panelon Albumin [Mass/Vol] 4 g/dL 3.5 - 5.2 g/dL [place] Albumin/Globulin [Mass ratio] NOT REPORTED [place] ALP [Catalytic activity/Vol] 71 U/L 40 - 129 U/L [place] ALT [Catalytic activity/Vol] 31 U/L 5 - 41 U/L [place] AST [Catalytic activity/Vol] 29 U/L <40 [place] Bilirubin Ql (U) 0.24 mg/dL Low 0.3 - 1.2 mg/dL [place] Bilirubin, Indirect 0.15 mg/dL 0 - 1 mg/dL [place] Bilirubin.direct [Mass/Vol] 0.09 mg/dL <0.31 [place] Globulin (S) [Mass/Vol] NOT REPORTED 1.5 - 3.8 g/dL [place] Protein [Mass/Vol] 7.3 g/dL 6.4 - 8.3 g/dL [place] Lactate Dehydrogenaseon LDH [Catalytic activity/Vol] 307 U/L High 135-225 [facility] Comment on above: Performed By: #### C DP, BMP, BNP, MG, TROPI #### [facility] [address] [place] [address] Shear Grinder Operator: Danis Adrian DO LD 307 U/L High 135 - 225 U/L [place] Liver Profileon 04-25-2020 Albumin [Mass/Vol] 4.0 g/dL Normal 3.5-5.2 [facility] Comment on above: Performed By: #### N A #### [facility] [address] [place] [address] Shear Grinder Operator: Danis Adrian DO Alkaline Phos 71 U/L Normal 40-129 [facility] Comment on above: Performed By: #### N A #### [facility] [place] [address] Shear Grinder Operator: Danis Adrian DO ALT [Catalytic activity/Vol] 31 U/L Normal 5-41 [facility] Comment on above: Performed By: #### N A #### [facility] [place] [address] Shear Grinder Operator: Danis Adrian DO AST [Catalytic activity/Vol] 29 U/L Normal <40 [facility] Comment on above: Performed By: #### N A #### [facility] [place] [address] Shear Grinder Operator: Danis Adrian DO Bilirubin Ql (U) 0.24 mg/dL Low 0.3-1.2 [facility] Comment on above: Performed By: #### N A #### [facility] [place] [address] Shear Grinder Operator: Danis Adrian DO Bilirubin, Indirect 0.15 mg/dL Normal 0.00-1.00 [facility] Comment on above: Performed By: #### N A #### [facility] [address] [place] [address] Shear Grinder Operator: Danis Adrian DO Bilirubin.direct [Mass/Vol] 0.09 mg/dL Normal <0.31 [facility] Comment on above: Performed By: #### N A #### [facility] [address] [place] [address] Shear Grinder Operator: Danis Adrian DO Protein [Mass/Vol] 7.3 g/dL Normal 6.4-8.3 [facility] Comment on above: Performed By: #### N A #### [facility] [address] [facility] [place] [address] Shear Grinder Operator: Danis Adrian DO Albumin/Globulin [Mass ratio] NOT REPORTED Normal 1.0-2.5 [facility] Comment on above: Performed By: #### N A #### [facility] [address] [facility] [place] [address] Shear Grinder Operator: Danis Adrian DO Globulin (S) [Mass/Vol] NOT REPORTED Normal 1.5-3.8 [facility] Comment on above: Performed By: #### N A #### [facility] [address] [facility] [place] [address] Shear Grinder Operator: Danis Adrian DO Magnesiumon 04-25-2020 Magnesium [Mass/Vol] 2.4 mg/dL Normal 1.6-2.6 [facility] Comment on above: Performed By: #### C DP, BMP, BNP, MG, TROPI #### [facility] [address] [facility] [place] [address] Shear Grinder Operator: Danis Adrian DO Magnesium [Mass/Vol] 2.4 mg/dL 1.6 - 2.6 mg/dL [facility], [place] Microscopic Urinalysison Amorphous, UA NOT REPORTED None [facility] [place], [place] Bacteria, UA None None [facility] [place], [place] Casts UA HYALINE /LPF [facility], [place] Casts UA 0 TO 2 /LPF [facility], [place] Crystals, UA NOT REPORTED None /HPF [facility] [place], [place] Epithelial Cells UA 0 TO 2 /HPF [facility], [place] Mucus, UA NOT REPORTED None [facility] [place], [place] Other Observations UA NOT REPORTED NOT REQ. [facility], [place] RBC (U) [#/Vol] 0 TO 2 /HPF [facility] [place], [place] Renal Epithelial, UA NOT REPORTED 0 /HPF [facility], [place] Trichomonas, UA NOT REPORTED None [place] WBC, UA 0 TO 2 /HPF [place] Yeast, UA NOT REPORTED None [place] NA (Sodium)on 04-25-2020 Sodium [Moles/Vol] 129 mmol/L Low 135-144 [facility] Comment on above: Performed By: #### C DP, BMP, BNP, MG, TROPI #### [facility] [address] [place] [address] Shear Grinder Operator: Danis Adrian DO Interpretation and review of laboratory results Abnormal [place] Sodium [Moles/Vol] 129 mmol/L Low 135 - 144 mmol/L [place] Sodium [Moles/Vol] 130 mmol/L Low 135-144 [facility] Comment on above: Performed By: #### C DP, BMP, BNP, MG, TROPI #### [facility] [address] [place], [place] [id number] Shear Grinder Operator: Danis Adrian DO Interpretation and review of laboratory results Abnormal [place] Sodium [Moles/Vol] 130 mmol/L Low 135 - 144 mmol/L [place] Sodium [Moles/Vol] 128 mmol/L Low 135-144 [facility] Comment on above: Performed By: #### N A #### [facility] [address] [place] [address] Shear Grinder Operator: Danis Adrian DO Interpretation and review of laboratory results Abnormal [place] Sodium [Moles/Vol] 128 mmol/L Low 135 - 144 mmol/L [place] Otheron 04-25-2020 Interpretation and review of laboratory results Abnormal [place] POC Glucose Fingerstickon Glucose [Mass/Vol] 201 mg/dL High 75 - 110 mg/dL [place] Interpretation and review of laboratory results Abnormal [place] Glucose [Mass/Vol] 248 mg/dL High 75 - 110 mg/dL [place] Interpretation and review of laboratory results Abnormal [place] Glucose [Mass/Vol] 238 mg/dL High 75 - 110 mg/dL [place] Interpretation and review of laboratory results Abnormal [place] Glucose [Mass/Vol] 285 mg/dL High 75 - 110 mg/dL [place] Interpretation and review of laboratory results Abnormal [place] Glucose [Mass/Vol] 209 mg/dL High 75 - 110 mg/dL [place] Interpretation and review of laboratory results Abnormal [place] Procalcitoninon 04-25-2020 Procalcitonin 0.16 ng/mL High <0.09 [facility] Comment on above: Result Comment: Suspected Sepsis: <0.50 ng/mL Low likelihood of sepsis. 0.50-2.00 ng/mL Increased likelihood of sepsis. Antibiotics encouraged. >2.00 ng/mL High risk of sepsis/shock. Antibiotics strongly encouraged. Suspected Lower Resp Tract Infections: <0.24 ng/mL Low likelihood of bacterial infection. >0.24 ng/mL Increased likelihood of bacterial infection. Antibiotics encouraged. With successful antibiotic therapy, PCT levels should decrease rapidly. (Half-life of 24 to 36 hours.) Procalcitonin values from samples collected within the first 6 hours of systemic infection may still be low. Retesting may be indicated. Values from day 1 and day 4 can be entered into the Change in Procalcitonin Calculator (www.ehdjoy-zbb-xhqtrxkvkn.com) to determine the patient's Mortality Risk Prognosis In healthy neonates, plasma Procalcitonin (PCT) concentrations increase gradually after , reaching peak values at about 24 hours of age then decrease to normal values below 0.5 ng/mL by 48-72 hours of age. Performed By: #### N A #### [facility] [address] [place] [address] Shear Grinder Operator: Danis Adrian, Interpretation and review of laboratory results Abnormal [place] Procalcitonin 0.16 ng/mL High <0.09 [facility] [place] Comment on above: Suspected Sepsis: <0.50 ng/mL Low likelihood of sepsis. 0.50-2.00 ng/mL Increased likelihood of sepsis. Antibiotics encouraged. >2.00 ng/mL High risk of sepsis/shock. Antibiotics strongly encouraged. Suspected Lower Resp Tract Infections: <0.24 ng/mL Low likelihood of bacterial infection. >0.24 ng/mL Increased likelihood of bacterial infection. Antibiotics encouraged. With successful antibiotic therapy, PCT levels should decrease rapidly. (Half-life of 24 to 36 hours.) Procalcitonin values from samples collected within the first 6 hours of systemic infection may still be low. Retesting may be indicated. Values from day 1 and day 4 can be entered into the Change in Procalcitonin Calculator (www.mtlrmu-wrr-tnpbxwljoh.[employer]base) to determine the patient's Mortality Risk Prognosis In healthy neonates, plasma Procalcitonin (PCT) concentrations increase gradually after , reaching peak values at about 24 hours of age then decrease to normal values below 0.5 ng/mL by 48-72 hours of age. Urinalysis, Routineon 2020 Acetoacetic Acid,Ur Negative Normal NEG [facility] Comment on above: Performed By: #### DARIAN Hutson #### [facility] [facility] [place] [address] Shear Grinder Operator: Danis Adrian DO Bilirubin, SemiQt,Ur Negative Normal NEG [facility] Comment on above: Performed By: #### DARIAN Hutson #### [facility] [facility] [place] [address] Shear Grinder Operator: Danis Adrian DO Color (U) YELLOW Normal YEL [facility] Comment on above: Performed By: #### U DARIAN Conrad #### [facility] [address] [place] [address]. [place] [address] Shear Grinder Operator: Danis Adrian DO Glucose Ql (U) 3+ Abnormal NEG [facility] Comment on above: Performed By: #### DARIAN Hutson #### [facility] [address] [facility] [place] [address] Shear Grinder Operator: Danis Adrian DO Hemoglobin, Ur Negative Normal NEG [facility] Comment on above: Performed By: #### DARIAN Hutson #### [facility] [address] [facility] [place] [address] Shear Grinder Operator: Danis Adrian DO Leukocyte esterase Test strip Ql (U) Negative Normal NEG [facility] Comment on above: Performed By: #### DARIAN Hutson #### [facility] [place] [address] Shear Grinder Operator: Danis Adrian DO Nitrite,Ur Negative Normal NEG [facility] Comment on above: Performed By: #### DARIAN Hutson #### [facility] [address] [place] [address] Shear Grinder Operator: Danis Adrian DO pH (U) 5.5 [pH] Normal 5.0-8.0 [facility] Comment on above: Performed By: #### DARIAN Hutson #### [facility] [address] [place] [address] Shear Grinder Operator: Danis Adrian DO Protein Ql (U) 1+ Abnormal NEG [facility] Comment on above: Performed By: #### DARIAN Hutson #### [facility] [address] [place] [address] Shear Grinder Operator: Danis Adrian DO Specific gravity (U) [Rel density] 1.024 Normal 1.000-1.030 [facility] Comment on above: Performed By: #### DARIAN Hutson #### [facility] [address] [place] [address] Shear Grinder Operator: Danis Adrian DO Turbidity CLEAR Normal CLEAR [facility] Comment on above: Performed By: #### DARIAN Hutson #### [facility] [place] [address] Shear Grinder Operator: Danis Adrian DO Urobilinogen,Ur Normal Normal NORM [facility] Comment on above: Performed By: #### DARIAN Hutson #### [facility] [address] [place] [address] Shear Grinder Operator: Danis Adrian DO Comment NOT REPORTED Normal [facility] Comment on above: Performed By: #### DARIAN Hutson #### [facility] [address] [place] [address] Shear Grinder Operator: Danis Adrian DO Urinalysis,Microon 1 ----- Normal [facility] Comment on above: Performed By: #### DARIAN Hutson #### [facility] [address] [place] [address] Shear Grinder Operator: Danis Adrian DO Bacteria LM.HPF (Urine sed) [#/Area] None Normal NONE [facility] Comment on above: Performed By: #### DARIAN Hutson #### [facility] [address] [place] [address] Shear Grinder Operator: Danis Adrian DO Casts LM.LPF (Urine sed) [#/Area] 0 TO 2 Normal [facility] Comment on above: Result Comment: HYAL INE Performed By: #### DARIAN Hutson #### [facility] [address] [place] [address] Shear Grinder Operator: Danis Adrian DO Epithelial cells LM.HPF (Urine sed) [#/Area] 0 TO 2 Normal [facility] Comment on above: Performed By: #### DARIAN Hutson #### [facility] [place] [address] Shear Grinder Operator: Danis Adrian DO RBC (U) [#/Vol] 0 TO 2 Normal [facility] Comment on above: Performed By: #### U Anamaria, DARIAN #### [facility] [address] [place] [address] Shear Grinder Operator: Danis Adrian DO WBC (U) [#/Vol] 0 TO 2 Normal [facility] Comment on above: Performed By: #### U DARIAN Conrad #### [facility] [address] [place] [address] Shear Grinder Operator: Danis Adrian DO Amorphous sediment LM Ql (Urine sed) NOT REPORTED Normal NONE [facility] Comment on above: Performed By: #### U DARIAN Conrad #### [facility] [address] [place] [address] Shear Grinder Operator: Danis Adrian DO Crystals LM Nom (Urine sed) NOT REPORTED Normal NONE [facility] Comment on above: Performed By: #### U A, DARIAN #### [facility] [address] [place] [address] Shear Grinder Operator: Danis Adrian DO Epithelial, Renal NOT REPORTED Normal 0 [facility] Comment on above: Performed By: #### U A, DARIAN #### [facility] [address] [place] [address] Shear Grinder Operator: Danis Adrian DO Mucus Strands NOT REPORTED Normal NONE [facility] Comment on above: Performed By: #### U Anamaria, DARIAN #### [facility] [place] [address] Shear Grinder Operator: Fanelly, Danis, DO Other Observations NOT REPORTED Normal NREQ [facility] Comment on above: Performed By: #### U A, DARIAN #### [facility] [address] [facility] [place] [address] Shear Grinder Operator: Danis Adrian DO Trichomonas NOT REPORTED Normal NONE [facility] Comment on above: Performed By: #### U Anamaria, DARIAN #### [facility] [address] [facility] [place] [address] Shear Grinder Operator: Danis Adrian DO Yeast LM Ql (Urine sed) NOT REPORTED Normal NONE [facility] Comment on above: Performed By: #### U Anamaria, DARIAN #### [facility] [address] [place] [address] Shear Grinder Operator: Danis Adrian DO BASIC METABOLIC PANELon -0 Anion gap [Moles/Vol] 15 mmol/L 9 - 17 mmol/L [place] Bun/Cre Ratio NOT REPORTED [place], [place] Calcium [Mass/Vol] 8.5 mg/dL Low 8.6 - 10. 4 mg/dL [place] Chloride [Moles/Vol] 94 mmol/L Low 98 - 107 mmol/L [place] CO2 [Moles/Vol] 18 mmol/L Low 20 - 31 mmol/L [place] Creatinine [Mass/Vol] 2.23 mg/dL High 0.7 - 1.2 mg/dL [place] GFR 35 mL/min Low >60 [place] GFR Non- 29 mL/min Low >60 [place] GFR/1.73 sq M predicted among non-blacks MDRD (S/P/Bld) [Vol rate/Area] NOT REPORTED [place] GFR/1.73 sq M predicted among non-blacks MDRD (S/P/Bld) [Vol rate/Area] [place] Comment on above: Average GFR for 70 o r more years old: 75 mL/min/1.73sq m Chronic Kidney Disease: <60 mL/min/1.73sq m Kidney failure: <15 mL/min/1.73sq m eGFR calculated using average adult body mass. Additional eGFR calculator available at: http://www.[employer]/multiple_crcl_2012.htm Glucose [Mass/Vol] 290 mg/dL High 70 - 99 mg/dL [place] Interpretation and review of laboratory results Abnormal [place] Potassium [Moles/Vol] 4.8 mmol/L 3.7 - 5.3 mmol/L [place] Sodium [Moles/Vol] 127 mmol/L Low 135 - 144 mmol/L [place] Urea nitrogen [Mass/Vol] 42 mg/dL High 8 - 23 mg/dL [place] Basic Metab w/rfx MGon 04-24 Anion gap [Moles/Vol] 10 mmol/L Normal 9-17 [facility] Comment on above: Performed By: #### DARIAN Hutson #### [facility] [address] [facility] [address] [place], [place] [id number] [employer]ar Grinder Operator: Danis Adrian DO Sodium [Moles/Vol] 126 mmol/L Low 135-144 [facility] Comment on above: Performed By: #### DARIAN Hutson #### [facility] [address] [facility] [address]. [place], [place] [id number] Shear Grinder Operator: Danis Adrian DO (cont.) Normal [facility] Comment on above: Result Comment: Aver age GFR for 70 or more years old: 75 mL/min/1.73sq m Chronic Kidney Disease: <60 mL/min/1.73sq m Kidney failure: <15 mL/min/1.73sq m eGFR calculated using average adult body mass. Additional eGFR calculator available at: http://www.[employer]/multiple_crcl_2012.htm Performed By: #### U DARIAN Conrad #### [facility] [address] [facility] [place] [address] Shear Grinder Operator: Danis Adrian DO Calcium [Mass/Vol] 8.3 mg/dL Low 8.6-10.4 [facility] Comment on above: Performed By: #### DARIAN Hutson #### [facility] [address] [facility] [place] [address] Shear Grinder Operator: Danis Adrian DO Chloride [Moles/Vol] 95 mmol/L Low 98-107 [facility] Comment on above: Performed By: #### DARIAN Hutson #### [facility] [facility] [place] [address] Shear Grinder Operator: Danis Adrian DO CO2 [Moles/Vol] 21 mmol/L Normal 20-31 [facility] Comment on above: Performed By: #### DARIAN Hutson #### [facility] [facility] [place] [address] Shear Grinder Operator: Danis Adrian DO Creatinine [Mass/Vol] 2.32 mg/dL High 0.70-1.20 [facility] Comment on above: Performed By: #### DARIAN Hutson #### [facility] [facility] [place] [address] [employer]ar Grinder Operator: Danis Adrian DO GFR, Amer 33 mL/min Low >60 [facility] Comment on above: Performed By: #### DARIAN Hutson #### [facility] [place] [address] Shear Grinder Operator: Danis Adrian DO GFR,non Amer 28 mL/min Low >60 [facility] Comment on above: Performed By: #### DARIAN Hutson #### [facility] [facility] [place] [address] Shear Grinder Operator: Danis Adrian DO Glucose [Mass/Vol] 310 mg/dL High 70-99 [facility] Comment on above: Performed By: #### DARIAN Hutson #### [facility] [address] [facility] [place] [address] Shear Grinder Operator: Danis Adrian DO Potassium [Moles/Vol] 5.0 mmol/L Normal 3.7-5.3 [facility] Comment on above: Performed By: #### DARIAN Hutson #### [facility] [address] [place] [address] Shear Grinder Operator: Danis Adrian DO Urea nitrogen [Mass/Vol] 35 mg/dL High 8-23 [facility] Comment on above: Performed By: #### DARIAN Hutson #### [facility] [place] [address] Shear Grinder Operator: Danis Adrian DO BUN/CRE Ratio NOT REPORTED Normal 9-20 [facility] Comment on above: Performed By: #### DARIAN Hutson #### [facility] [place] [address] Shear Grinder Operator: Danis Adrian DO Staging: NOT REPORTED Normal [facility] Comment on above: Performed By: #### DARIAN Hutson #### [facility] [place] [address] Shear Grinder Operator: Danis Adrian DO Basic Metabolic Panel w/ Ref kandis to MGon 04-24-2020 Anion gap [Moles/Vol] 10 mmol/L 9 - 17 mmol/L [facility] Bun/Cre Ratio NOT REPORTED [facility] [place] Calcium [Mass/Vol] 8.3 mg/dL Low 8.6 - 10. 4 mg/dL [facility] [place] Chloride [Moles/Vol] 95 mmol/L Low 98 - 107 mmol/L [place] CO2 [Moles/Vol] 21 mmol/L 20 - 31 mmol/L [place] Creatinine [Mass/Vol] 2.32 mg/dL High 0.7 - 1.2 mg/dL [place] GFR 33 mL/min Low >60 [place] GFR Non- 28 mL/min Low >60 [place] GFR/1.73 sq M predicted among non-blacks MDRD (S/P/Bld) [Vol rate/Area] [place] Comment on above: Average GFR for 70 o r more years old: 75 mL/min/1.73sq m Chronic Kidney Disease: <60 mL/min/1.73sq m Kidney failure: <15 mL/min/1.73sq m eGFR calculated using average adult body mass. Additional eGFR calculator available at: http://www.[employer]_crcl_2012.htm GFR/1.73 sq M predicted among non-blacks MDRD (S/P/Bld) [Vol rate/Area] NOT REPORTED [place] Glucose [Mass/Vol] 310 mg/dL High 70 - 99 mg/dL [place] Interpretation and review of laboratory results Abnormal [place] Potassium [Moles/Vol] 5.0 mmol/L 3.7 - 5.3 mmol/L [place] Sodium [Moles/Vol] 126 mmol/L Low 135 - 144 mmol/L [place] Urea nitrogen [Mass/Vol] 35 mg/dL High 8 - 23 mg/dL [place] Basic Metabolic Profon 04-24 (cont.) Normal [facility] Comment on above: Result Comment: Aver age GFR for 70 or more years old: 75 mL/min/1.73sq m Chronic Kidney Disease: <60 mL/min/1.73sq m Kidney failure: <15 mL/min/1.73sq m eGFR calculated using average adult body mass. Additional eGFR calculator available at: http://www.[employer]/multiple_crcl_2012.htm Performed By: #### N A #### [facility] [address] [place] [address] Shear Grinder Operator: Danis Adrian DO Anion gap [Moles/Vol] 15 mmol/L Normal 9-17 [facility] Comment on above: Performed By: #### N A #### [facility] [address] [place] [address] Shear Grinder Operator: Danis Adrian DO Calcium [Mass/Vol] 8.5 mg/dL Low 8.6-10.4 [facility] Comment on above: Performed By: #### N A #### [facility] [place] [address] Shear Grinder Operator: Danis Adrian DO Chloride [Moles/Vol] 94 mmol/L Low 98-107 [facility] Comment on above: Performed By: #### N A #### [facility] [place] [address] Shear Grinder Operator: Danis Adrian DO CO2 [Moles/Vol] 18 mmol/L Low 20-31 [facility] Comment on above: Performed By: #### N A #### [facility] [facility] [place] [address] Shear Grinder Operator: Danis Adrian DO Creatinine [Mass/Vol] 2.23 mg/dL High 0.70-1.20 [facility] Comment on above: Performed By: #### N A #### [facility] [place] [address] Shear Grinder Operator: Danis Adrian DO GFR, Amer 35 mL/min Low >60 [facility] Comment on above: Performed By: #### N A #### [facility] [place] [address] Shear Grinder Operator: Danis Adrian DO GFR,non Amer 29 mL/min Low >60 [facility] Comment on above: Performed By: #### N A #### [facility] [address] [place] [address] Shear Grinder Operator: Danis Adrian DO Glucose [Mass/Vol] 290 mg/dL High 70-99 [facility] Comment on above: Performed By: #### N A #### [facility] [address] [facility] [place] [address] Shear Grinder Operator: Danis Adrian DO Potassium [Moles/Vol] 4.8 mmol/L Normal 3.7-5.3 [facility] Comment on above: Performed By: #### N A #### [facility] [address] [place] [address]. [place] [address] Shear Grinder Operator: Danis Adrian DO Sodium [Moles/Vol] 127 mmol/L Low 135-144 [facility] Comment on above: Performed By: #### N A #### [facility] [facility] [place] [address] Shear Grinder Operator: Danis Adrian DO Urea nitrogen [Mass/Vol] 42 mg/dL High 8-23 [facility] Comment on above: Performed By: #### N A #### [facility] [address] [place], [place] [address] [place] [address] Shear Grinder Operator: Danis Adrian DO BUN/CRE Ratio NOT REPORTED Normal 9-20 [facility] Comment on above: Performed By: #### N A #### [facility] [place] [address] Shear Grinder Operator: Danis Adrian DO Staging: NOT REPORTED Normal [facility] Comment on above: Performed By: #### N A #### [facility] [address] [place] [address] Shear Grinder Operator: Danis Adrian DO (cont.) Normal [facility] Comment on above: Result Comment: Aver age GFR for 70 or more years old: 75 mL/min/1.73sq m Chronic Kidney Disease: <60 mL/min/1.73sq m Kidney failure: <15 mL/min/1.73sq m eGFR calculated using average adult body mass. Additional eGFR calculator available at: http://www.[employer]/multiple_crcl_2012.htm Performed By: #### C DP, BMP, BNP, MG, TROPI #### [facility] [address] [place] [address] Shear Grinder Operator: Danis Adrian DO Anion gap [Moles/Vol] 12 mmol/L Normal 9-17 [facility] Comment on above: Performed By: #### C DP, BMP, BNP, MG, TROPI #### [facility] [address] [place] [address] Shear Grinder Operator: Danis Adrian DO Calcium [Mass/Vol] 8.6 mg/dL Normal 8.6-10.4 [facility] Comment on above: Performed By: #### C DP, BMP, BNP, MG, TROPI #### [facility] [address] [place] [address] Shear Grinder Operator: Danis Adrian DO Chloride [Moles/Vol] 95 mmol/L Low 98-107 [facility] Comment on above: Performed By: #### C DP, BMP, BNP, MG, TROPI #### [facility] [address] [place] [address] Shear Grinder Operator: Danis Adrian DO CO2 [Moles/Vol] 23 mmol/L Normal 20-31 [facility] Comment on above: Performed By: #### C DP, BMP, BNP, MG, TROPI #### [facility] [address] [facility] [place] [address] Shear Grinder Operator: Danis Adrian DO Creatinine [Mass/Vol] 2.49 mg/dL High 0.70-1.20 [facility] Comment on above: Performed By: #### C DP, BMP, BNP, MG, TROPI #### [facility] [address] [facility] [place] [address] Shear Grinder Operator: Danis Adrian DO GFR, Amer 31 mL/min Low >60 [facility] Comment on above: Performed By: #### C DP, BMP, BNP, MG, TROPI #### [facility] [place] [address] Shear Grinder Operator: Danis Adrian DO GFR,non Amer 25 mL/min Low >60 [facility] Comment on above: Performed By: #### C DP, BMP, BNP, MG, TROPI #### [facility] [place] [address] Shear Grinder Operator: Danis Adrian DO Glucose [Mass/Vol] 69 mg/dL Low 70-99 [facility] Comment on above: Performed By: #### C DP, BMP, BNP, MG, TROPI #### [facility] [place] [address] Shear Grinder Operator: Danis Adrian DO Potassium [Moles/Vol] 4.0 mmol/L Normal 3.7-5.3 [facility] Comment on above: Performed By: #### C DP, BMP, BNP, MG, TROPI #### [facility] [place] [address] Shear Grinder Operator: Danis Adrian DO Sodium [Moles/Vol] 130 mmol/L Low 135-144 [facility] Comment on above: Performed By: #### C DP, BMP, BNP, MG, TROPI #### [facility] [address] [facility] [place] [address] Shear Grinder Operator: Danis Adrian DO Urea nitrogen [Mass/Vol] 32 mg/dL High 8-23 [facility] Comment on above: Performed By: #### C DP, BMP, BNP, MG, TROPI #### [facility] [address] [facility] [place] [address] Shear Grinder Operator: Danis Adrian DO BUN/CRE Ratio NOT REPORTED Normal 9-20 [facility] Comment on above: Performed By: #### C DP, BMP, BNP, MG, TROPI #### [facility] [address] [facility] [place] [address] Shear Grinder Operator: Danis Adrian DO Staging: NOT REPORTED Normal [facility] Comment on above: Performed By: #### C DP, BMP, BNP, MG, TROPI #### [facility] [address] [facility] [place] [address] Shear Grinder Operator: Danis Adrian DO Brain Natri. Peptideon 04-24 Natriuretic peptide B (Bld) [Mass/Vol] 145 pg/mL Normal <300 [facility] Comment on above: Result Comment: Pro- BNP results cannot be compared to BNP results. Performed By: #### C DP, BMP, BNP, MG, TROPI #### [facility] [address] [facility] [place] [address] Shear Grinder Operator: Danis Adrian DO Natriuretic peptide B (Bld) [Mass/Vol] Pro-BNP Reference Range: Normal [facility] Comment on above: Result Comment: Rule Out: <300 [place]: Age <50 300-450 Age 50-75 300-900 Age >75 300-1800 Usually represents mild to moderate HF but other cardiopulmonary causes cannot be ruled out. Rule In: Age <50 >450 Age 50-75 >900 Age >75 >1800 Performed By: #### C DP, BMP, BNP, MG, TROPI #### [facility] [place] [address] Shear Grinder Operator: Dains Adrian DO C-Reactive Proteinon 021 CRP [Mass/Vol] 28.5 mg/L High 0.0-5.0 [facility] Comment on above: Performed By: #### DARIAN Hutson #### [facility] [address] [place] [address] Shear Grinder Operator: Danis Adrian DO CRP [Mass/Vol] 28.5 mg/L High 0 - 5 mg/L [place] Interpretation and review of laboratory results Abnormal [place], [place] CBCon 04-24-2020 Erythrocyte distribution width (RBC) [Ratio] 13.4 % Normal 11.5-14.9 [facility] Comment on above: Performed By: #### DARIAN Hutson #### [facility] [place] [address] Shear Grinder Operator: Danis Adrian DO Hematocrit (Bld) [Volume fraction] 40.4 % Low 41-53 [facility] Comment on above: Performed By: #### DARIAN Hutson #### [facility] [address] [place] [address] Shear Grinder Operator: Danis Adrian DO Hemoglobin (Bld) [Mass/Vol] 13.8 g/dL Normal 13.5-17.5 [facility] Comment on above: Performed By: #### DARIAN Hutson #### [facility] [place] [address] Shear Grinder Operator: Danis Adrian DO MCH (RBC) [Entitic mass] 28.9 pg Normal 26-34 [facility] Comment on above: Performed By: #### DARIAN Hutson #### [facility] [facility] [place] [address] Shear Grinder Operator: Danis Adrian DO MCHC (RBC) [Mass/Vol] 34.2 g/dL Normal 31-37 [facility] Comment on above: Performed By: #### DARIAN Hutson #### [facility] [address] [place] [address] Shear Grinder Operator: Danis Adrian DO MCV (RBC) [Entitic vol] 84.6 fL Normal 80-100 [facility] Comment on above: Performed By: #### DARIAN Hutson #### [facility] [address] [place] [address] Shear Grinder Operator: Danis Adrian DO Platelet mean volume (Bld) [Entitic vol] 9.0 fL Normal 6.0-12.0 [facility] Comment on above: Performed By: #### DARIAN Hutson #### [facility] [address] [place] [address] Shear Grinder Operator: Danis Adrian DO Platelets (Bld) [#/Vol] 230 10*3/uL Normal 150-450 [facility] Comment on above: Performed By: #### DARIAN Hutson #### [facility] [address] [place] [address] Shear Grinder Operator: Danis Adrian DO RBC (Bld) [#/Vol] 4.78 10*6/uL Normal 4.5-5.9 [facility] Comment on above: Performed By: #### DARIAN Hutson #### [facility] [address] [place] [address] Shear Grinder Operator: Danis Adrian DO WBC (Bld) [#/Vol] 8.7 10*3/uL Normal 3.5-11.0 [facility] Comment on above: Performed By: #### U DARIAN Conrad #### [facility] [address] [place] [address] Shear Grinder Operator: Danis Adrian DO NRBC Automated NOT REPORTED Normal [facility] Comment on above: Performed By: #### U DARIAN Conrad #### [facility] [address] [place] [address] Shear Grinder Operator: Danis Adrian DO Erythrocyte distribution width (RBC) [Ratio] 13.4 % 11.5 - 14.9 % [place] Hematocrit (Bld) [Volume fraction] 40.4 % Low 41 - 53 % [place] Hemoglobin (Bld) [Mass/Vol] 13.8 g/dL 13.5 - 17.5 g/dL [place] Interpretation and review of laboratory results Abnormal [place] MCH (RBC) [Entitic mass] 28.9 pg 26 - 34 pg [place] MCHC (RBC) [Mass/Vol] 34.2 g/dL 31 - 37 g/dL [place] MCV (RBC) [Entitic vol] 84.6 fL 80 - 100 fL [place] Platelet mean volume (Bld) [Entitic vol] 9.0 fL 6 - 12 fL [place] Platelets (Bld) [#/Vol] 230 10*3/uL [place] RBC (Bld) [#/Vol] 4.78 10*6/uL 4.5 - 5.9 m/uL [place] WBC (Bld) [#/Vol] NOT REPORTED per 100 WBC [place] WBC (Bld) [#/Vol] 8.7 10*3/uL [place] CBC with Diffon 04-24-2020 Abs. Basophil 0.10 k/uL Normal 0.0-0.2 [facility] Comment on above: Performed By: #### C DP, BMP, BNP, MG, TROPI #### [facility] [place] [address] Shear Grinder Operator: Danis Adrian DO Abs.Neutrophil (Seg) 8.30 k/uL Normal 1.3-9.1 [facility] Comment on above: Performed By: #### C DP, BMP, BNP, MG, TROPI #### [facility] [address] [place] [address] Shear Grinder Operator: Danis Adrian DO Basophils/100 WBC (Bld) 1 % Normal 0-2 [facility] Comment on above: Performed By: #### C DP, BMP, BNP, MG, TROPI #### [facility] [address] [place] [address] Shear Grinder Operator: Danis Adrian DO Eosinophils (Bld) [#/Vol] 0.00 10*3/uL Normal 0.0-0.4 [facility] Comment on above: Performed By: #### C DP, BMP, BNP, MG, TROPI #### [facility] [address] [place] [address] Shear Grinder Operator: Danis Adrian DO Eosinophils/100 WBC (Bld) 0 % Normal 0-4 [facility] Comment on above: Performed By: #### C DP, BMP, BNP, MG, TROPI #### [facility] [address] [place] [address] Shear Grinder Operator: Danis Adrian DO Erythrocyte distribution width (RBC) [Ratio] 13.1 % Normal 11.5-14.9 [facility] Comment on above: Performed By: #### C DP, BMP, BNP, MG, TROPI #### [facility] [address] [place] [address] Shear Grinder Operator: Danis Adrian DO Hematocrit (Bld) [Volume fraction] 40.1 % Low 41-53 [facility] Comment on above: Performed By: #### C DP, BMP, BNP, MG, TROPI #### [facility] [address] [place] [address] Shear Grinder Operator: Danis Adrian DO Hemoglobin (Bld) [Mass/Vol] 13.5 g/dL Normal 13.5-17.5 [facility] Comment on above: Performed By: #### C DP, BMP, BNP, MG, TROPI #### [facility] [place] [address] Shear Grinder Operator: Danis Adrian DO Lymphocytes (Bld) [#/Vol] 0.80 10*3/uL Low 1.0-4.8 [facility] Comment on above: Performed By: #### C DP, BMP, BNP, MG, TROPI #### [facility] [address] [place] [address] Shear Grinder Operator: Danis Adrian DO Lymphocytes/100 WBC (Bld) 8 % Low 24-44 [facility] Comment on above: Performed By: #### C DP, BMP, BNP, MG, TROPI #### [facility] [address] [place] [address] Shear Grinder Operator: Danis Adrian DO MCH (RBC) [Entitic mass] 28.5 pg Normal 26-34 [facility] Comment on above: Performed By: #### C DP, BMP, BNP, MG, TROPI #### [facility] [place] [address] Shear Grinder Operator: Danis Adrian DO MCHC (RBC) [Mass/Vol] 33.7 g/dL Normal 31-37 [facility] Comment on above: Performed By: #### C DP, BMP, BNP, MG, TROPI #### [facility] [address] [place] [address] Shear Grinder Operator: aDnis Adrian DO MCV (RBC) [Entitic vol] 84.5 fL Normal 80-100 [facility] Comment on above: Performed By: #### C DP, BMP, BNP, MG, TROPI #### [facility] [address] [place] [address] Shear Grinder Operator: Danis Adrian DO Monocytes (Bld) [#/Vol] 0.90 10*3/uL Normal 0.1-1.3 [facility] Comment on above: Performed By: #### C DP, BMP, BNP, MG, TROPI #### [facility] [place] [address] Shear Grinder Operator: Danis Adrian DO Monocytes/100 WBC (Bld) 9 % High 1-7 [facility] Comment on above: Performed By: #### C DP, BMP, BNP, MG, TROPI #### [facility] [place] [address] Shear Grinder Operator: aDnis Adrian DO Neutrophil (Seg) 82 % High 36-66 [facility] Comment on above: Performed By: #### C DP, BMP, BNP, MG, TROPI #### [facility] [place] [address] Shear Grinder Operator: Danis Adrian DO Platelet mean volume (Bld) [Entitic vol] 8.4 fL Normal 6.0-12.0 [facility] Comment on above: Performed By: #### C DP, BMP, BNP, MG, TROPI #### [facility] [place] [address] Shear Grinder Operator: Danis Adrian DO Platelets (Bld) [#/Vol] 231 10*3/uL Normal 150-450 [facility] Comment on above: Performed By: #### C DP, BMP, BNP, MG, TROPI #### [facility] [facility] [place] [address] Shear Grinder Operator: Danis Adrian DO RBC (Bld) [#/Vol] 4.75 10*6/uL Normal 4.5-5.9 [facility] Comment on above: Performed By: #### C DP, BMP, BNP, MG, TROPI #### [facility] [place] [address] Shear Grinder Operator: Danis Adrian DO WBC (Bld) [#/Vol] 10.2 10*3/uL Normal 3.5-11.0 [facility] Comment on above: Performed By: #### C DP, BMP, BNP, MG, TROPI #### [facility] [address] [place] [id number] Shear Grinder Operator: Danis Adrian DO Abs.Imm.Granulocyte NOT REPORTED Normal 0.00-0.30 [facility] Comment on above: Performed By: #### C DP, BMP, BNP, MG, TROPI #### [facility] [address] [place] [id number] Shear Grinder Operator: Danis Adrian DO Auto Diff Performed NOT REPORTED Normal [facility] Comment on above: Performed By: #### C DP, BMP, BNP, MG, TROPI #### [facility] [address] [place] [id number] Shear Grinder Operator: Danis Adrian DO Immature granulocytes (Bld) [#/Vol] NOT REPORTED Normal 0 [facility] Comment on above: Performed By: #### C DP, BMP, BNP, MG, TROPI #### [facility] [address] [place] [id number] Shear Grinder Operator: Danis Adrian DO NRBC Automated NOT REPORTED Normal [facility] Comment on above: Performed By: #### C DP, BMP, BNP, MG, TROPI #### [facility] [address] [place] [address]. [place] [address] Shear Grinder Operator: Danis Adrian DO Platelets (Bld) [#/Vol] NOT REPORTED Normal [facility] Comment on above: Performed By: #### C DP, BMP, BNP, MG, TROPI #### [facility] [address] [place] [address]. [place] [address] Shear Grinder Operator: Danis Adrian DO RBC morphology finding Nom (Bld) NOT REPORTED Normal [facility] Comment on above: Performed By: #### C DP, BMP, BNP, MG, TROPI #### [facility] [address] [place] [address]. [place] [address] Shear Grinder Operator: Danis Adrian DO WBC Morphology NOT REPORTED Normal [facility] Comment on above: Performed By: #### C DP, BMP, BNP, MG, TROPI #### [facility] [address] [place] [address]. [place] [address] Shear Grinder Operator: Danis Adrian DO Creatinine, Random Urineon 0 04-24-2020 Creatinine, Ur 90.1 mg/dL 39 - 259 mg/dL [place], [place] Creatinine,Random Uron 04-24 Creatinine [Mass/Vol] 90.1 mg/dL Normal 39.0-259.0 [facility] Comment on above: Performed By: #### N A #### [facility] [address] [place] [id number] Shear Grinder Operator: Danis Adrian DO D-DIMER, QUANTITATIVEon 01-0 D-Dimer, Quant 0.53 [place], [place] Comment on above: When combined with a low clinical probability, a D dimer value of <0.50 mg/L FEU is considered negative for DVT and PE (negative predictive value of 98%, sensitivity of 97%). If this test is not being used to help rule out DVT and PE, then the following reference range should be utilized: 0.00 - 0.59 mg/L FEU. The D-Dimer assay is intended for use as an aid in the diagnosis of venous thromboembolism (DVT and PE) and the results should be interpreted in conjunction with the patient's medical history, clinical presentation, and other findings. Elevated levels of D-dimer activity can be seen in any state of coagulation activation and is not recommended in patients with therapeutic dose anticoagulant therapy for >24 hours, fibrinolytic therapy within the previous 7 days, trauma or surgery within the previous 4 weeks, disseminated malignancies, aortic aneurysm, sepsis, severe infections, pneumonia, severe skin infections, liver cirrhosis, advanced age, coronary disease, diabetes, and . A very low percentage of patients with DVT may yield D-dimer results below the cutoff of 0.5 mg/L FEU. This is known to be more prevalent in patients with distal DVT. D-Dimer Teston 04-24-2020 D-Dimer Test 0.53 mg/L FEU Normal 0.00-0.59 [facility] Comment on above: Result Comment: When combined with a low clinical probability, a D dimer value of <0.50 mg/L FEU is considered negative for DVT and PE (negative predictive value of 98%, sensitivity of 97%). If this test is not being used to help rule out DVT and PE, then the following reference range should be utilized: 0.00 - 0.59 mg/L FEU. The D-Dimer assay is intended for use as an aid in the diagnosis of venous thromboembolism (DVT and PE) and the results should be interpreted in conjunction with the patient's medical history, clinical presentation, and other findings. Elevated levels of D-dimer activity can be seen in any state of coagulation activation and is not recommended in patients with therapeutic dose anticoagulant therapy for >24 hours, fibrinolytic therapy within the previous 7 days, trauma or surgery within the previous 4 weeks, disseminated malignancies, aortic aneurysm, sepsis, severe infections, pneumonia, severe skin infections, liver cirrhosis, advanced age, coronary disease, diabetes, and . A very low percentage of patients with DVT may yield D-dimer results below the cutoff of 0.5 mg/L FEU. This is known to be more prevalent in patients with distal DVT. Performed By: #### N A #### [facility] [address] [facility] [place] [address] Shear Grinder Operator: Danis Adrian DO EKG 12 Leadon 04-24-2020 Atrial Rate 78 BPM [place], [place] P [place] 62 degrees [facility], [place] P-R Interval 150 ms [facility] [place] Q-T Interval 368 ms [facility] [place] QRS Duration 80 ms [facility] [place] QTc Calculation (Bazett) 419 ms [facility] R [place] 65 degrees [facility] T [place] 61 degrees [facility] Ventricular Rate 78 BPM [place], [place] Normal sinus rhythm Normal ECG No previous ECGs available [place], [place] James, Mhpn Incoming E kg Results From [facility] - 04/24/2020 11:33 AM EST Normal sinus rhythm Normal ECG No previous ECGs available [place] FERRITINon 04-24-2020 Ferritin [Mass/Vol] 582 ug/L High 30 - 400 ug/L [place] Interpretation and review of laboratory results Abnormal [place] Ferritinon 04-24-2020 Ferritin [Mass/Vol] 582 ug/L High 30-400 [facility] Comment on above: Performed By: #### DARIAN Hutson #### [facility] [address] [facility] [place] [address] Shear Grinder Operator: Danis Adrian DO LACTATE DEHYDROGENASEon LD 220 U/L 135 - 225 U/L [place] Lactate Dehydrogenaseon LDH [Catalytic activity/Vol] 220 U/L Normal 135-225 [facility] Comment on above: Performed By: #### U DARIAN Conrad #### [facility] [address] [facility] [place] [address] Shear Grinder Operator: Danis Adrian DO Magnesiumon 04-24-2020 Magnesium [Mass/Vol] 2.2 mg/dL Normal 1.6-2.6 [facility] Comment on above: Performed By: #### U DARIAN Conrad #### [facility] [address] [facility] [place] [address] Shear Grinder Operator: Danis Adrian DO Magnesium [Mass/Vol] 2.2 mg/dL 1.6 - 2.6 mg/dL [place] Magnesium [Mass/Vol] 2.3 mg/dL Normal 1.6-2.6 [facility] Comment on above: Performed By: #### C DP, BMP, BNP, MG, TROPI #### [facility] [address] [facility] [place] [address] Shear Grinder Operator: Danis Adrian DO NA (Sodium)on 04-24-2020 Sodium [Moles/Vol] 124 mmol/L Low 135-144 [facility] Comment on above: Performed By: #### N A #### [facility] [address] [facility] [place] [address] Shear Grinder Operator: Danis Adrian DO Interpretation and review of laboratory results Abnormal [place] Sodium [Moles/Vol] 124 mmol/L Low 135 - 144 mmol/L [place] Osmolality, Urineon 04-24-19 Osmolality - Urine 589 mOsm/kg Normal 80-1300 [facility] Comment on above: Performed By: #### N A #### [facility] [address] [facility] [place] [address] Shear Grinder Operator: Danis Adrian DO Osmolality (U) [Osmolality] 589 [place], [place] POC Glucose Fingerstickon Glucose [Mass/Vol] 366 mg/dL High 75 - 110 mg/dL [place] Interpretation and review of laboratory results Abnormal [place] Glucose [Mass/Vol] 324 mg/dL High 75 - 110 mg/dL [place] Interpretation and review of laboratory results Abnormal [place] Glucose [Mass/Vol] 363 mg/dL High 75 - 110 mg/dL [place] Interpretation and review of laboratory results Abnormal [place] Glucose [Mass/Vol] 379 mg/dL High 75 - 110 mg/dL [place] Interpretation and review of laboratory results Abnormal [place] Glucose [Mass/Vol] 408 mg/dL Critically high 75 - 1 10 mg/dL [place] Comment on above: Critical Noted Interpretation and review of laboratory results Abnormal [place] PROTEIN, URINE, RANDOMon Protein (U) [Mass/Vol] 44 mg/dL [place] Comment on above: No normal range esta blished. Procalcitoninon 04-24-2020 Procalcitonin 0.21 ng/mL High <0.09 [facility] Comment on above: Result Comment: Suspected Sepsis: <0.50 ng/mL Low likelihood of sepsis. 0.50-2.00 ng/mL Increased likelihood of sepsis. Antibiotics encouraged. >2.00 ng/mL High risk of sepsis/shock. Antibiotics strongly encouraged. Suspected Lower Resp Tract Infections: <0.24 ng/mL Low likelihood of bacterial infection. >0.24 ng/mL Increased likelihood of bacterial infection. Antibiotics encouraged. With successful antibiotic therapy, PCT levels should decrease rapidly. (Half-life of 24 to 36 hours.) Procalcitonin values from samples collected within the first 6 hours of systemic infection may still be low. Retesting may be indicated. Values from day 1 and day 4 can be entered into the Change in Procalcitonin Calculator (www.umtayr-icq-wernnuavyq.com) to determine the patient's Mortality Risk Prognosis In healthy neonates, plasma Procalcitonin (PCT) concentrations increase gradually after , reaching peak values at about 24 hours of age then decrease to normal values below 0.5 ng/mL by 48-72 hours of age. Performed By: #### DARIAN Hutson #### [facility] [address] [place] [address] Shear Grinder Operator: Danis Adrian DO Interpretation and review of laboratory results Abnormal [place] Procalcitonin 0.21 ng/mL High <0.09 [place] Comment on above: Suspected Sepsis: <0.50 ng/mL Low likelihood of sepsis. 0.50-2.00 ng/mL Increased likelihood of sepsis. Antibiotics encouraged. >2.00 ng/mL High risk of sepsis/shock. Antibiotics strongly encouraged. Suspected Lower Resp Tract Infections: <0.24 ng/mL Low likelihood of bacterial infection. >0.24 ng/mL Increased likelihood of bacterial infection. Antibiotics encouraged. With successful antibiotic therapy, PCT levels should decrease rapidly. (Half-life of 24 to 36 hours.) Procalcitonin values from samples collected within the first 6 hours of systemic infection may still be low. Retesting may be indicated. Values from day 1 and day 4 can be entered into the Change in Procalcitonin Calculator (www.tdqkcf-giz-dgwzaajpbs.Coinbase) to determine the patient's Mortality Risk Prognosis In healthy neonates, plasma Procalcitonin (PCT) concentrations increase gradually after , reaching peak values at about 24 hours of age then decrease to normal values below 0.5 ng/mL by 48-72 hours of age. Protein,Tot,[place] Uron 2020 Tot Prot. Conc. 44 mg/dL Normal [facility] Comment on above: Result Comment: No n ormal range established. Performed By: #### N A #### [facility] [address] [facility] [place], [place] [id number] Shear Grinder Operator: Danis Adrian DO SODIUM, URINE, RANDOMon Sodium (U) [Moles/Vol] 24 mmol/L [place] Comment on above: No normal range esta blished. Sodium, Random Uron 04-24-19 21 Na Conc. Urine 24 mmol/L Normal [facility] Comment on above: Result Comment: No n ormal range established. Performed By: #### N A #### [facility] [address] [facility] [place], [place] [id number] Shear Grinder Operator: Danis Adrian DO Troponinon 04-24-2020 Troponin I.cardiac [Mass/Vol] 33 ng/L High 0-22 [facility] Comment on above: Result Comment: High Sensitivity Troponin values cannot be compared with other Troponin methodologies. Patients with high levels of Biotin oral intake (i.e >5mg/day) may have falsely decreased Troponin levels. Samples collected within 8 hours of biotin intake may require additional information for diagnosis. Performed By: #### C DP, BMP, BNP, MG, TROPI #### [facility] [address] [facility] [place] [address] Shear Grinder Operator: Danis Adrian DO Troponin I.cardiac [Mass/Vol] NOT REPORTED Normal [facility] Comment on above: Performed By: #### C DP, BMP, BNP, MG, TROPI #### [facility] [address] [facility] [place] [address] Shear Grinder Operator: Danis Adrian DO Interpretation and review of laboratory results Abnormal [place] Troponin I.cardiac [Mass/Vol] NOT REPORTED [place] Troponin T.cardiac [Mass/Vol] NOT REPORTED <0.03 ng/mL [place] Troponin, High Sensitivity 33 ng/L High 0 - 22 ng/L [place] Comment on above: High Sensitivity Troponin values cannot be compared with other Troponin methodologies. Patients with high levels of Biotin oral intake (i.e >5mg/day) may have falsely decreased Troponin levels. Samples collected within 8 hours of biotin intake may require additional information for diagnosis. Troponin I.cardiac [Mass/Vol] 48 ng/L High 0-22 [facility] Comment on above: Result Comment: High Sensitivity Troponin values cannot be compared with other Troponin methodologies. Patients with high levels of Biotin oral intake (i.e >5mg/day) may have falsely decreased Troponin levels. Samples collected within 8 hours of biotin intake may require additional information for diagnosis. Performed By: #### C DP, BMP, BNP, MG, TROPI #### [facility] [address] [facility] [place] [address] Shear Grinder Operator: Danis Adrian DO Troponin I.cardiac [Mass/Vol] NOT REPORTED Normal <0.03 [facility] Comment on above: Performed By: #### C DP, BMP, BNP, MG, TROPI #### [facility] [address] [place] [address] Shear Grinder Operator: Danis Adrian DO Urinalysison 04-24-2020 Bilirubin Urine Negative NEGATIVE [facility] [place] [place] Color, UA YELLOW YELLOW [place], [place] Glucose, Ur 3+ Abnormal NEGATIVE [place] Interpretation and review of laboratory results Abnormal [place] Ketones Ql (U) Negative NEGATIVE [facility], [place] Leukocyte esterase Test strip Ql (U) Negative NEGATIVE [facility], [place] Nitrite, Urine Negative NEGATIVE [facility] pH, UA 5.5 [place] Protein (U) [Mass/Vol] 1+ Abnormal NEGATIVE [facility], [place] Specific [place], UA 1.024 [facility] Turbidity UA CLEAR CLEAR [place] Urinalysis Comments NOT REPORTED [facility] Urine Hgb Negative NEGATIVE [facility] Urobilinogen, Urine Normal Normal [place] XR CHEST PORTABLEon 04-24-19 21 XR CHEST PORTABLE EXAMINATION: ONE XRAY VIEW OF THE CHEST 04/23/2020 10:39 pm COMPARISON: 04/15/2012 HISTORY: ORDERING SYSTEM PROVIDED HISTORY: shortness of breath hypoxia covid positive TECHNOLOGIST PROVIDED HISTORY: shortness of breath hypoxia covid positive Reason for Exam: shortness of breath, history of covid 19 and COPD Acuity: Unknown Type of Exam: Unknown FINDINGS: The patient is rotated to the left on this portable study. There is ill-defined airspace disease in the lateral left lower lung and at both lung bases. There is no pneumothorax or pleural fluid. The heart size is within normal limits. No acute bone finding. IMPRESSION: Ill-defined lateral left lung and bibasilar airspace disease suspicious for multifocal pneumonia, likely an atypical or viral pneumonia. Interpreted by: Moris Shook MD Signed by: Moris Shook MD 04/23/20 Final result Normal [facility] Basic Metabolic Panelon Anion gap [Moles/Vol] 12 mmol/L 9 - 17 mmol/L [place] Bun/Cre Ratio NOT REPORTED [place], [place] Calcium [Mass/Vol] 8.6 mg/dL 8.6 - 10. 4 mg/dL [place] Chloride [Moles/Vol] 95 mmol/L Low 98 - 107 mmol/L [place] CO2 [Moles/Vol] 23 mmol/L 20 - 31 mmol/L [place] Creatinine [Mass/Vol] 2.49 mg/dL High 0.7 - 1.2 mg/dL [place] GFR 31 mL/min Low >60 [place] GFR Non- 25 mL/min Low >60 [place] GFR/1.73 sq M predicted among non-blacks MDRD (S/P/Bld) [Vol rate/Area] [place], [place] Comment on above: Average GFR for 70 o r more years old: 75 mL/min/1.73sq m Chronic Kidney Disease: <60 mL/min/1.73sq m Kidney failure: <15 mL/min/1.73sq m eGFR calculated using average adult body mass. Additional eGFR calculator available at: http://www.[employer]/multiple_crcl_2012.htm GFR/1.73 sq M predicted among non-blacks MDRD (S/P/Bld) [Vol rate/Area] NOT REPORTED [place] Glucose [Mass/Vol] 69 mg/dL Low 70 - 99 mg/dL [place] Potassium [Moles/Vol] 4.0 mmol/L 3.7 - 5.3 mmol/L [place] Sodium [Moles/Vol] 130 mmol/L Low 135 - 144 mmol/L [place] Urea nitrogen [Mass/Vol] 32 mg/dL High 8 - 23 mg/dL [place] Brain Natriuretic Peptideon 04-23-2020 Natriuretic peptide B (Bld) [Mass/Vol] 145 pg/mL <300 [place] Comment on above: Pro-BNP results emelia ot be compared to BNP results. Natriuretic peptide B (Bld) [Mass/Vol] Pro-BNP Reference Range: [place], [place] Comment on above: Rule Out: <300 [place]: Age <50 300-450 Age 50-75 300-900 Age >75 300-1800 Usually represents mild to moderate HF but other cardiopulmonary causes cannot be ruled out. Rule In: Age <50 >450 Age 50-75 >900 Age >75 >1800 CBC Auto Differentialon Basophils (Bld) [#/Vol] 0.10 10*3/uL [place] Basophils/100 WBC (Bld) 1 % 0 - 2 % [place] Differential Type NOT REPORTED [place] Eosinophils (Bld) [#/Vol] 0.00 10*3/uL [place] Eosinophils/100 WBC (Bld) 0 % 0 - 4 % [place] Erythrocyte distribution width (RBC) [Ratio] 13.1 % 11.5 - 14.9 % [place] Hematocrit (Bld) [Volume fraction] 40.1 % Low 41 - 53 % [place] Hemoglobin (Bld) [Mass/Vol] 13.5 g/dL 13.5 - 17.5 g/dL [place] Interpretation and review of laboratory results Abnormal [place] Lymphocytes (Bld) [#/Vol] 0.80 10*3/uL Low [place], [place] Lymphocytes/100 WBC (Bld) 8 % Low 24 - 44 % [place] MCH (RBC) [Entitic mass] 28.5 pg 26 - 34 pg [place] MCHC (RBC) [Mass/Vol] 33.7 g/dL 31 - 37 g/dL [place] MCV (RBC) [Entitic vol] 84.5 fL 80 - 100 fL [place] Monocytes (Bld) [#/Vol] 0.90 10*3/uL [place], [place] Monocytes/100 WBC (Bld) 9 % High 1 - 7 % [place] Platelet mean volume (Bld) [Entitic vol] 8.4 fL 6 - 12 fL [place] Platelets (Bld) [#/Vol] NOT REPORTED [place] Platelets (Bld) [#/Vol] 231 10*3/uL [place] RBC (Bld) [#/Vol] 4.75 10*6/uL 4.5 - 5.9 m/uL [place] RBC morphology finding Nom (Bld) NOT REPORTED [place] Segmented neutrophils/100 WBC (Bld) 82 % High 36 - 66 % [place] Segs Absolute 8.30 [place] WBC (Bld) [#/Vol] 10.2 10*3/uL [place] WBC (Bld) [#/Vol] NOT REPORTED per 100 WBC [place] WBC Morphology NOT REPORTED [place], [place] Magnesiumon 04-23-2020 Magnesium [Mass/Vol] 2.3 mg/dL 1.6 - 2.6 mg/dL [place] Otheron 04-23-2020 Interpretation and review of laboratory results Abnormal [place] Immature granulocytes (Bld) [#/Vol] NOT REPORTED 0 % [place] Troponinon 04-23-2020 Troponin I.cardiac [Mass/Vol] NOT REPORTED [place] Troponin T.cardiac [Mass/Vol] NOT REPORTED <0.03 ng/mL [place] Troponin, High Sensitivity 48 ng/L High 0 - 22 ng/L [place] Comment on above: High Sensitivity Troponin values cannot be compared with other Troponin methodologies. Patients with high levels of Biotin oral intake (i.e >5mg/day) may have falsely decreased Troponin levels. Samples collected within 8 hours of biotin intake may require additional information for diagnosis. XR CHEST PORTABLEon 04-23-19 21 Ill-defined lateral left lung and bibasilar airspace disease suspicious for multifocal pneumonia, likely an atypical or viral pneumonia. [place] EXAMINATION: ONE XRA Y VIEW OF THE CHEST 04/23/2020 10:39 pm COMPARISON: 04/15/2012 HISTORY: ORDERING SYSTEM PROVIDED HISTORY: shortness of breath hypoxia covid positive TECHNOLOGIST PROVIDED HISTORY: shortness of breath hypoxia covid positive Reason for Exam: shortness of breath, history of covid 19 and COPD Acuity: Unknown Type of Exam: Unknown FINDINGS: The patient is rotated to the left on this portable study. There is ill-defined airspace disease in the lateral left lower lung and at both lung bases. There is no pneumothorax or pleural fluid. The heart size is within normal limits. No acute bone finding. [place], [place] James, Mhpn Incoming Radiant Results From [facility] - 04/23/2020 11:27 PM EST EXAMINATION: ONE XRAY VIEW OF THE CHEST 04/23/2020 10:39 pm COMPARISON: 04/15/2012 HISTORY: ORDERING SYSTEM PROVIDED HISTORY: shortness of breath hypoxia covid positive TECHNOLOGIST PROVIDED HISTORY: shortness of breath hypoxia covid positive Reason for Exam: shortness of breath, history of covid 19 and COPD Acuity: Unknown Type of Exam: Unknown FINDINGS: The patient is rotated to the left on this portable study. There is ill-defined airspace disease in the lateral left lower lung and at both lung bases. There is no pneumothorax or pleural fluid. The heart size is within normal limits. No acute bone finding. IMPRESSION: Ill-defined lateral left lung and bibasilar airspace disease suspicious for multifocal pneumonia, likely an atypical or viral pneumonia. [place] COVID-19on 04-20-2020 Interpretation and review of laboratory results Abnormal [place] SARS-CoV-2 Positive Abnormal [place] Vital Signs Date Time Vital Sign Value Performing Clinician Facility 10-15-2023 10:49-0400 Body height 172.72 cm [facility] 10-15-2023 10:49-0400 Body mass index (BMI) [Ratio] 28 kg/m2 [facility] 10-15-2023 10:49-0400 Body weight 83.51 kg [facility] 10-15-2023 10:49-0400 Diastolic blood pressure 79 mm[Hg] [facility] 10-15-2023 10:49-0400 Heart rate 61 /min [facility] 10-15-2023 10:49-0400 Respiratory rate 18 /min [facility] 10-15-2023 10:49-0400 SaO2% (BldA) [Mass fraction] 97 % [facility] 10-15-2023 10:49-0400 Systolic blood pressure 120 mm[Hg] [facility] 08-20-2023 11:34-0400 Diastolic blood pressure 90 mm[Hg] [facility] 08-20-2023 11:34-0400 Systolic blood pressure 178 mm[Hg] [facility] 07-09-2023 11:21-0400 Body height 172.72 cm MD Moris Oro Work Phone: [facility] 07-09-2023 11:21-0400 Body mass index (BMI) [Ratio] 27.3 kg/m2 MD Moris Oro Work Phone: [facility] 07-09-2023 11:21-0400 Body weight 81.73 kg MD Moris Oro Work Phone: [facility] 07-09-2023 11:21-0400 Diastolic blood pressure 70 mm[Hg] MD Moris Oro Work Phone: [facility] 07-09-2023 11:21-0400 Heart rate 80 /min MD Moris Oro Work Phone: [facility] 07-09-2023 11:21-0400 Respiratory rate 18 /min MD Moris Oro Work Phone: [facility] 07-09-2023 11:21-0400 SaO2% (BldA) [Mass fraction] 96 % MD Moris Oro Work Phone: [facility] 07-09-2023 11:21-0400 Systolic blood pressure 106 mm[Hg] MD Moris Oro Work Phone: [facility] 06-25-2023 15:34-0500 Body height 172.72 cm MD Moris Oro Work Phone: [facility] 06-25-2023 15:34-0500 Body mass index (BMI) [Ratio] 27.7 kg/m2 MD Moris Oro Work Phone: [facility] 06-25-2023 15:34-0500 Body temperature 98.7 [degF] MD Moris Oro Work Phone: [facility] 06-25-2023 15:34-0500 Body weight 82.66 kg MD Moris Oro Work Phone: [facility] 06-25-2023 15:34-0500 Diastolic blood pressure 85 mm[Hg] MD Moris Oro Work Phone: [facility] 06-25-2023 15:34-0500 Heart rate 81 /min MD Moris Oro Work Phone: [facility] 06-25-2023 15:34-0500 Respiratory rate 18 /min MD Moris Oro Work Phone: [facility] 06-25-2023 15:34-0500 SaO2% (BldA) [Mass fraction] 95 % MD Moris Oro Work Phone: [facility] 06-25-2023 15:34-0500 Systolic blood pressure 132 mm[Hg] MD Moris Oro Work Phone: [facility] 06-06-2023 11:24-0500 Body height 172.72 cm MD Moris Oro Work Phone: [facility] 06-06-2023 11:24-0500 Body mass index (BMI) [Ratio] 27.8 kg/m2 MD Moris Oro Work Phone: [facility] 06-06-2023 11:24-0500 Body weight 83.17 kg MD Moris Oro Work Phone: [facility] 05-07-2023 10:45-0500 Body height 172.72 cm Darbyjono Zurita Other [facility] 05-07-2023 10:45-0500 Body mass index (BMI) [Ratio] 27.99 kg/m2 Darby Lindaly Other [facility] Other 05-07-2023 10:45-0500 Body weight 83.51 kg Darby Scally Other [facility] Other 05-07-2023 10:45-0500 Body weight 83.5 kg MD Moris Oro Work Phone: [facility] 05-07-2023 10:45-0500 Diastolic blood pressure Darby Scally Other [facility] Other 05-07-2023 10:45-0500 Respiratory rate 18 /min Darby Scally Other [facility] Other 05-07-2023 10:45-0500 SaO2% (BldA) [Mass fraction] 97 % Darby Scally Other [facility] Other 05-07-2023 10:45-0500 Systolic blood pressure 142 mm[Hg] Darby Scally Other [facility] Other 02-27-2023 14:40-0500 Body height 172.72 cm Shashank Nikhil Other [facility] Other 02-27-2023 14:40-0500 Body mass index (BMI) [Ratio] 27.7 kg/m2 Shashank Nikhil Other [facility] Other 02-27-2023 14:40-0500 Body temperature 97.3 [degF] Shashank Nikhil Other [facility] Other 02-27-2023 14:40-0500 Body weight 82.65 kg Shashank Nikhil Other [facility] Other 02-27-2023 14:40-0500 Diastolic blood pressure 95 mm[Hg] Shashank Nikhil Other [facility] Other 02-27-2023 14:40-0500 Respiratory rate 18 /min Shashank Nikhil Other [facility] Other 02-27-2023 14:40-0500 SaO2% (BldA) [Mass fraction] 97 % Shashank Nikhil Other [facility] Other 02-27-2023 14:40-0500 Systolic blood pressure 169 mm[Hg] Shashank Nikhil Other [facility] Other 02-27-2023 14:00-0500 Body mass index (BMI) [Ratio] 27.67 kg/m2 Darby Zurita Other [facility] Other 02-27-2023 14:00-0500 Body weight 82.56 kg Darby Zurita Other [facility] Other 02-06-2023 13:42-0400 Body weight 84.37 kg Jose Daniel Renee MD Work Phone: [facility] 02-06-2023 13:42-0400 Diastolic blood pressure 78 mm[Hg] Jose Daniel Renee MD Work Phone: [facility] 02-06-2023 13:42-0400 Heart rate 73 /min Jose Daniel Renee MD Work Phone: [facility] 02-06-2023 13:42-0400 Systolic blood pressure 152 mm[Hg] Jose Daniel Renee MD Work Phone: [facility] 01-19-2023 08:37-0400 Blood Pressure Location Christophe WINN [facility] 01-19-2023 08:37-0400 Body temperature 98.06 [degF] Christophe WINN [facility] 01-19-2023 08:37-0400 Diastolic blood pressure 78 mm[Hg] Christophe WINN [facility] 01-19-2023 08:37-0400 Heart rate 78 /min Christophe WINN [facility] 01-19-2023 08:37-0400 Systolic blood pressure 128 mm[Hg] Christophe WINN [facility] 01-16-2023 13:30-0400 Body height 172.72 cm Darby Scally Other [facility] Other 01-16-2023 13:30-0400 Body mass index (BMI) [Ratio] 27.5 kg/m2 Darby Scally Other [facility] Other 01-16-2023 13:30-0400 Body weight 82.06 kg Darby Scally Other [facility] Other 01-16-2023 13:30-0400 Diastolic blood pressure 77 mm[Hg] Darby Scally Other [facility] Other 01-16-2023 13:30-0400 Respiratory rate 18 /min Darby Scally Other [facility] Other 01-16-2023 13:30-0400 SaO2% (BldA) [Mass fraction] 97 % Darby Scally Other [facility] Other 01-16-2023 13:30-0400 Systolic blood pressure 136 mm[Hg] Darby Zurita Other [place] [employer] Other 01-08-2023 10:02-0400 Blood Pressure Location Christophe WINN [facility] 01-08-2023 10:02-0400 Diastolic blood pressure 79 mm[Hg] Christophe WINN [facility] 01-08-2023 10:02-0400 Heart rate 80 /min Christophe WINN [facility] 01-08-2023 10:02-0400 Respiratory rate 16 /min Christophe WINN [facility] 01-08-2023 10:02-0400 Systolic blood pressure 132 mm[Hg] Christophe WINN [facility] 12-18-2022 09:18-0400 Blood Pressure Location Christophe WINN [facility] 12-18-2022 09:18-0400 Diastolic blood pressure 74 mm[Hg] Christophe WINN [facility] 12-18-2022 09:18-0400 Heart rate 68 /min Christophe WINN [facility] 12-18-2022 09:18-0400 Respiratory rate 16 /min Christophe WINN [facility] 12-18-2022 09:18-0400 Systolic blood pressure 130 mm[Hg] Christophe WINN [facility] 11-09-2022 12:40-0400 Body height 172.72 cm Shashank Nikhil Other [facility] Other 11-09-2022 12:40-0400 Body mass index (BMI) [Ratio] 28.28 kg/m2 Shashank Nikhil Other [facility] Other 11-09-2022 12:40-0400 Body temperature 97.2 [degF] Shashank Nikhil Other [facility] Other 11-09-2022 12:40-0400 Body weight 84.37 kg Shashank Nikhil Other [facility] Other 11-09-2022 12:40-0400 Diastolic blood pressure 80 mm[Hg] Shashank Nikhil Other [facility] Other 11-09-2022 12:40-0400 SaO2% (BldA) [Mass fraction] 93 % Shashank Nikhil Other [facility] Other 11-09-2022 12:40-0400 Systolic blood pressure 132 mm[Hg] Shashank Nikhil Other [facility] Other 10-10-2022 13:00-0400 Body height 172.72 cm Darby Scally Other [facility] Other 10-10-2022 13:00-0400 Body mass index (BMI) [Ratio] 28.37 kg/m2 Darby Scally Other [facility] Other 10-10-2022 13:00-0400 Body weight 84.64 kg Darby Scally Other [facility] Other 10-10-2022 13:00-0400 Diastolic blood pressure 72 mm[Hg] Darby Scally Other [facility] Other 10-10-2022 13:00-0400 Respiratory rate 18 /min Darby Scally Other [facility] Other 10-10-2022 13:00-0400 SaO2% (BldA) [Mass fraction] 98 % Darby Scally Other [facility] Other 10-10-2022 13:00-0400 Systolic blood pressure 148 mm[Hg] Darby Scally Other [facility] Other 10-04-2022 08:40-0400 Body height 172.72 cm Shashank Nikhil Other [facility] Other 10-04-2022 08:40-0400 Body mass index (BMI) [Ratio] 28.13 kg/m2 Shashank Nikhil Other [facility] Other 10-04-2022 08:40-0400 Body temperature 97.3 [degF] Shashank Nikhil Other [facility] Other 10-04-2022 08:40-0400 Body weight 83.92 kg Shashank Nikhil Other [facility] Other 10-04-2022 08:40-0400 Diastolic blood pressure 79 mm[Hg] Shashank Nikhil Other [facility] Other 10-04-2022 08:40-0400 Respiratory rate 18 /min Shashank Nikhil Other [facility] Other 10-04-2022 08:40-0400 SaO2% (BldA) [Mass fraction] 92 % Shashank Nikhil Other [facility] Other 10-04-2022 08:40-0400 Systolic blood pressure 138 mm[Hg] Shashank Nikhil Other [facility] Other 05-11-2022 14:00-0500 Body height 172.72 cm Darby Scally Other [facility] Other 05-11-2022 14:00-0500 Body mass index (BMI) [Ratio] 28.35 kg/m2 Darby Scally Other [facility] Other 05-11-2022 14:00-0500 Body weight 84.6 kg Darby Scally Other [facility] Other 05-11-2022 14:00-0500 Diastolic blood pressure 74 mm[Hg] Darby Scally Other [facility] Other 05-11-2022 14:00-0500 Respiratory rate 18 /min Darby Scally Other [facility] Other 05-11-2022 14:00-0500 SaO2% (BldA) [Mass fraction] 96 % Darby Scally Other [facility] Other 05-11-2022 14:00-0500 Systolic blood pressure 125 mm[Hg] Darby Scally Other [facility] Other 04-12-2022 10:00-0500 Body height 172.72 cm Darby Scally Other [facility] Other 04-12-2022 10:00-0500 Body mass index (BMI) [Ratio] 28.22 kg/m2 Darby Scally Other [facility] Other 04-12-2022 10:00-0500 Body weight 84.19 kg Darby Scally Other [facility] Other 01-26-2022 10:45-0400 Body height 172.72 cm Darby Scally Other [facility] Other 01-26-2022 10:45-0400 Body mass index (BMI) [Ratio] 27.29 kg/m2 Darby Scally Other [facility] Other 01-26-2022 10:45-0400 Body weight 81.42 kg Darby Scally Other [facility] Other 01-26-2022 10:45-0400 Diastolic blood pressure 94 mm[Hg] Darby Scally Other [facility] Other 01-26-2022 10:45-0400 Respiratory rate 18 /min Darby Scally Other [facility] Other 01-26-2022 10:45-0400 SaO2% (BldA) [Mass fraction] 99 % Darby Scally Other [facility] Other 01-26-2022 10:45-0400 Systolic blood pressure 167 mm[Hg] Darby Scally Other [facility] Other 11-10-2021 12:15-0400 Body height 172.72 cm Darby Scally Other [facility] Other 11-10-2021 12:15-0400 Body mass index (BMI) [Ratio] 26.68 kg/m2 Darby Scally Other [facility] Other 11-10-2021 12:15-0400 Body weight 79.61 kg Darby Scally Other [facility] Other 11-10-2021 12:15-0400 Diastolic blood pressure 86 mm[Hg] Darby Scally Other [facility] Other 11-10-2021 12:15-0400 Respiratory rate 18 /min Darby Scally Other [facility] Other 11-10-2021 12:15-0400 SaO2% (BldA) [Mass fraction] 97 % Darby Scally Other [facility] Other 11-10-2021 12:15-0400 Systolic blood pressure 154 mm[Hg] Darby Scally Other [facility] Other 04-28-2021 12:00-0500 Body height 172.72 cm Darby Scally Other [facility] Other 04-28-2021 12:00-0500 Body mass index (BMI) [Ratio] 27.61 kg/m2 Darby Scally Other [facility] Other 04-28-2021 12:00-0500 Body weight 82.37 kg Darby Scally Other [facility] Other 04-28-2021 12:00-0500 Diastolic blood pressure 90 mm[Hg] Darby Scally Other [facility] Other 04-28-2021 12:00-0500 Respiratory rate 18 /min Darby Scally Other [facility] Other 04-28-2021 12:00-0500 SaO2% (BldA) [Mass fraction] 97 % Darby Scally Other [facility] Other 04-28-2021 12:00-0500 Systolic blood pressure 168 mm[Hg] Darby Scally Other [facility] Other 01-12-2021 13:45-0400 Body height 172.72 cm Zeferino Wilkerson Jr. Other [facility] Other 01-12-2021 13:45-0400 Body mass index (BMI) [Ratio] 27.7 kg/m2 Zeferino Wilkerson Jr. Other [facility] Other 01-12-2021 13:45-0400 Body weight 82.65 kg Zeferinogunner Wilkerson Jr. Other [facility] Other 01-12-2021 13:45-0400 Diastolic blood pressure 89 mm[Hg] Zeferino Cortesff . Other [facility] Other 01-12-2021 13:45-0400 Respiratory rate 18 /min Zeferino Wilkerson Jr. Other [facility] Other 01-12-2021 13:45-0400 SaO2% (BldA) [Mass fraction] 99 % Zeferino Wilkerson Jr. Other [facility] Other 01-12-2021 13:45-0400 Systolic blood pressure 151 mm[Hg] Zeferino Wilkerson Jr. Other [facility] Other 05-05-2020 17:00-0500 Pulse (Heart Rate) 69 /min [place] 05-05-2020 17:00-0500 Pulse Oximetry 92 % [place], [place] 05-05-2020 17:00-0500 Respiratory Rate 16 /min [place] 05-05-2020 12:00-0500 Body Temperature 97.81 [degF] [place] 05-05-2020 12:00-0500 BP Diastolic 96 mm[Hg] [place] 05-05-2020 12:00-0500 BP Systolic 152 mm[Hg] [place] 05-05-2020 04:00-0500 BMI (Body Mass Index) 28.9 kg/m2 [place] 05-05-2020 04:00-0500 Body weight 83.7 kg [place] 05-05-2020 04:00-0500 Height 170.2 cm [place] Encounters Encounter Date Encounter Type Care Provider Facility Start: 02-21-2024 End: 02-25-2024 ambulatory Jose Daniel Renee MD Work Phone: Urology Start: 10-15-2023 End: 10-15-2023 ambulatory [facility] Work Phone: Start: 10-15-2023 End: 10-15-2023 Patient encounter procedure [facility] Work Phone: Start: 08-20-2023 End: 08-20-2023 ambulatory [facility] Work Phone: Start: 08-20-2023 End: 08-20-2023 Patient encounter procedure [facility] Work Phone: Start: 07-09-2023 End: 07-09-2023 ambulatory MD Moris Oro Work Phone: 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 Work Phone: Start: 06-06-2023 End: 06-06-2023 Patient encounter procedure MD Moris Oro Work Phone: [facility] Work Phone: Start: 05-23-2023 End: 05-23-2023 ambulatory Darby Zurita Other [facility] [employer] Other Start: 05-23-2023 Telephone encounter Darby [facility] Start: 05-22-2023 End: 05-22-2023 ambulatory Darby Zurita Other [facility] [employer] Other Start: 05-22-2023 Telephone encounter Darby Oconnell [employer] Start: 05-07-2023 Non-patient / Non-visit MD Moris Oro Work Phone: [facility] [employer] Work Phone: Start: 05-07-2023 (DM) Diabetes Darby [facility] Start: 05-07-2023 Telephone encounter Darby [facility] Start: 05-07-2023 End: 05-08-2023 ambulatory MD Moris Oro Work Phone: [facility] [employer] Other Start: 05-07-2023 End: 05-07-2023 Discharged Recurring MD [facility] Work Phone: Start: 05-07-2023 Registered Recurring MD Moris Oro Work Phone: [facility] Work Phone: Start: 05-07-2023 End: 05-07-2023 Patient encounter procedure MD Moris Oro Work Phone: [facility] Work Phone: Start: 04-18-2023 End: 04-18-2023 ambulatory Darby Zurita Other [facility] Other Start: 04-18-2023 Telephone encounter Darby [facility] Start: 03-20-2023 End: 03-20-2023 ambulatory Jose Daniel Renee MD Work Phone: Urology Start: 03-20-2023 End: 03-20-2023 Patient encounter procedure Jose Daniel Renee MD Work Phone: Urology Comment on above: Renal mass (Primary Dx); Type 2 diabetes mellitus with stage 3 chronic kidney disease, 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, unspecified whether stage 3a or 3b CKD (HCC); Stage 3b chronic kidney disease (HCC) Start: 03-09-2023 End: 03-09-2023 ambulatory Darby Zurita Other [facility] Other Start: 03-09-2023 Telephone encounter Darby Oconnell [facility] Start: 02-27-2023 End: 02-27-2023 ambulatory Shashank Nikhil Other [facility] Other Start: 02-27-2023 Nursing evaluation o f patient and report Darby Zurita [facility] Start: 02-27-2023 Office outpatient visit 25 minutes Shashank Nikhil [facility] Start: 02-26-2023 End: 02-26-2023 ambulatory JOSE DANIEL ZAMARRIPA Facility:[facility] Start: 02-13-2023 Telephone encounter Dragan Renee MD Work Phone: [facility] & Comment on above: Kidney Bx Start: 02-06-2023 ambulatory Jose Daniel park MD Work Phone: Urology Start: 02-06-2023 End: 02-06-2023 Patient encounter procedure Jose Daniel Renee MD Work Phone: Urology Comment on above: Renal mass (Primary Dx); Type 2 diabetes mellitus with stage 3 chronic kidney disease, unspecified whether care home insulin use, unspecified whether stage 3a or 3b CKD (HCC); Stage 3b chronic kidney disease (HCC) Start: 02-02-2023 End: 02-02-2023 ambulatory Darby Scalemani Other [facility] Other Start: 02-02-2023 Telephone encounter [facility]by [facility] Start: 01-19-2023 End: 01-20-2023 ambulatory Christophe WINN Facility:[facility] Start: 01-19-2023 End: 01-19-2023 Patient encounter procedure Christophe WINN [facility] Start: 01-16-2023 (DM) Diabetes Darby Zurita [facility] Start: 01-16-2023 End: 01-16-2023 ambulatory Darby Zurita Other [facility] Other Start: 01-08-2023 End: 01-09-2023 ambulatory Christophe WINN Facility:[facility] Start: 01-08-2023 End: 01-08-2023 Patient encounter procedure Christophe WINN [facility] Start: 01-03-2023 End: 01-03-2023 ambulatory Darbycari Zurita Other [facility] Other Start: 01-03-2023 Telephone encounter Darby [facility] Start: 12-27-2022 End: 12-27-2022 ambulatory Darby Zurita Other [facility] Other Start: 12-27-2022 Telephone encounter Darby [facility] Start: 12-18-2022 End: 12-19-2022 ambulatory SHASHANK NIKHIL Facility:[facility] Start: 12-18-2022 End: 12-18-2022 Patient encounter procedure Christophe R PA [facility] Start: 11-21-2022 ambulatory Christophe WINN Facility :[facility] Start: 11-09-2022 End: 11-09-2022 ambulatory Shashank Nikhil Other [facility] Other Start: 11-09-2022 Office outpatient visit 25 minutes Shashank Nikhil [facility] Start: 10-10-2022 (DM) Diabetes Darby jones [facility] Start: 10-10-2022 End: 10-10-2022 ambulatory Darby Zurita Other [facility] Other Start: 10-05-2022 End: 10-05-2022 ambulatory Shashank Nikhil Other [facility] Other Start: 10-05-2022 Telephone encounter Shashank Nikhil [facility] [employer] Start: 10-04-2022 End: 10-04-2022 ambulatory Shashank Nikhil Other [facility] Other Start: 10-04-2022 Office outpatient ne w 45 minutes Shashank Nikhil [facility] Start: 09-20-2022 End: 09-20-2022 ambulatory Darby Zurita Other [facility] Other Start: 09-20-2022 Telephone encounter Darby [facility] Start: 09-15-2022 End: 09-15-2022 ambulatory Darby Zurita Other [facility] Other Start: 09-15-2022 Telephone encounter Darby Scally [facility] Start: 08-17-2022 End: 08-17-2022 ambulatory Darby Scally Other [facility] Other Start: 08-17-2022 Telephone encounter Darby Scally [facility] Start: 08-15-2022 End: 08-15-2022 ambulatory Darby Scally Other [facility] Other Start: 08-15-2022 Telephone encounter Darby Scally [facility] Start: 07-28-2022 ambulatory FRANCISCO SAWANT Facility: [facility] Start: 07-12-2022 End: 07-12-2022 ambulatory Darby Scally Other [facility] Other Start: 07-12-2022 Telephone encounter Darby Scally [facility] Start: 06-23-2022 End: 06-23-2022 ambulatory Darby Scally Other [facility] Other Start: 06-23-2022 Telephone encounter Darby Scally [facility] Start: 06-20-2022 End: 06-20-2022 ambulatory Darby Scally Other [facility] Other Start: 06-20-2022 Telephone encounter Darby Scally [facility] Start: 05-17-2022 End: 05-17-2022 ambulatory Darby Scally Other [facility] Other Start: 05-17-2022 Telephone encounter Darby Scally [facility] Start: 05-11-2022 (DM) Diabetes Darby Scally [facility] Start: 05-11-2022 End: 05-11-2022 ambulatory Darby Scally Other [facility] Other Start: 05-01-2022 End: 05-01-2022 ambulatory Darby Zurita Other [facility] Other Start: 05-01-2022 Telephone encounter Darby Zurita [facility] [employer] Start: 04-27-2022 End: 04-27-2022 ambulatory Darby Zurita Other [facility] Other Start: 04-27-2022 Telephone encounter Darby Oconnell [facility] Start: 04-12-2022 End: 04-12-2022 ambulatory Darby Zurita Other [facility] Other Start: 04-12-2022 Nursing evaluation o f patient and report Darby Zurita [facility] Start: 03-22-2022 End: 03-22-2022 ambulatory Marcy Floyd Other [facility] Other Start: 03-22-2022 Telephone encounter Marcy Floyd [facility] [employer] Start: 03-21-2022 End: 03-21-2022 ambulatory Darby Zurita Other [facility] Other Start: 03-21-2022 Telephone encounter Darby Oconnell [facility] Start: 03-20-2022 End: 03-20-2022 ambulatory Darby Zurita Other [facility] Other Start: 03-20-2022 Telephone encounter Darby Zurita [facility] [employer] Start: 03-07-2022 End: 03-07-2022 ambulatory Joslyn Patrickt Other [facility] Other Start: 03-07-2022 Telephone encounter Joslyn [facility] Start: 02-21-2022 End: 02-21-2022 ambulatory Darby Scally Other [facility] Other Start: 02-21-2022 Telephone encounter Darby Scally [facility] Start: 01-26-2022 (DM) Diabetes Darby Scally [facility] Start: 01-26-2022 End: 01-26-2022 ambulatory Darby Scally Other [facility] Other Start: 12-07-2021 End: 12-07-2021 ambulatory Darby Scally Other [facility] Other Start: 12-07-2021 Telephone encounter Darby Scally [facility] Start: 11-23-2021 End: 11-23-2021 ambulatory Darby Scally Other [facility] Other Start: 11-23-2021 Telephone encounter Darby Scally [facility] Start: 11-15-2021 End: 11-15-2021 ambulatory Darby Scally Other [facility] Other Start: 11-15-2021 Telephone encounter Darby Scally [facility] Start: 11-10-2021 (DM) Diabetes Darby Scally [facility] Start: 11-10-2021 End: 11-10-2021 ambulatory Darby Scally Other [facility] Other Start: 09-21-2021 End: 09-21-2021 ambulatory Darby Scally Other [facility] Other Start: 09-21-2021 Telephone encounter Darby Scally [facility] Start: 07-04-2021 End: 07-04-2021 ambulatory Darby Zurita Other [facility] Other Start: 07-04-2021 Telephone encounter Darby lara [facility] Start: 06-01-2021 End: 06-01-2021 ambulatory Darby Zurita Other [facility] Other Start: 06-01-2021 Telephone encounter Darby [facility]a [facility] Start: 04-28-2021 (DM) Diabetes Darby Lau [facility] Start: 04-28-2021 End: 04-28-2021 ambulatory Darby Zurita Other [facility] Other Start: 02-07-2021 Telephone encounter Zeferino Turner [facility] Start: 01-24-2021 Telephone encounter Zeferino Turner [facility] Start: 01-12-2021 (DM) Diabetes Zeferino Lucero [facility] Start: 05-12-2020 End: 05-13-2020 Patient encounter procedure DULCE MARIA [facility] [facility] Start: 05-12-2020 End: 05-12-2020 Subsequent hospital visit by physician Dulce Maria [facility] Start: 04-23-2020 End: 05-05-2020 Evaluation and management of inpatient KIP [facility] [place] Start: 04-23-2020 End: 05-05-2020 Evaluation and management of inpatient Kenneth Andersen Work Phone: [facility] ICU Comment on above: NAOMIE (acute kidney in jury) (HCC) (Primary Dx); Pneumonia due to COVID-19 virus; Elevated troponin Procedures Date Procedure Procedure Detail Performing Clinician Start: 02-21-2024 Urnls dip stick/tabl et rgnt auto w/o microscopy Bulk Order Provider Start: 06-21-2023 Urnls dip stick/tabl et rgnt auto w/o microscopy Bulk Order Provider Start: 06-21-2023 Us retroperitoneal r eal time w/image complete Jose Daniel Renee MD Work Phone: Start: 03-20-2023 Urnls dip stick/tabl et rgnt auto w/o microscopy Bulk Order Provider Start: 02-26-2023 Renal biopsy prq trocar/needle Jose Daniel Renee MD Work Phone: Start: 02-06-2023 Urnls dip stick/tabl et rgnt auto w/o microscopy Bulk Order Provider Start: 05-12-2020 Basic metabolic pane l calcium total Memo Belle Imam Work Phone: Start: 05-12-2020 Blood count complete auto&auto difrntl wbc Memo Belle Imam Work Phone: Start: 05-05-2020 Glucose blood reagent strip [facility] Work Phone: Start: 05-05-2020 Glucose blood reagent strip [facility] Work Phone: Start: 05-05-2020 ELECTROLYTE PANEL W/ REFLEX TO MG FOR LOW K Meom Belle Imam Work Phone: Start: 05-05-2020 Assay of magnesium [address] Work Phone: Start: 05-05-2020 Basic metabolic pane l calcium total [address] Work Phone: Start: 05-05-2020 Blood count complete automated [address] Work Phone: Start: 05-05-2020 Assay of osmolality urine Eliezer Agrawal-Afodu Work Phone: Start: 05-05-2020 Cul fngi mold/yeast prsmptv id skn hair/nail Eliezer Agrawal-Afodu Work Phone: Start: 05-04-2020 Glucose blood reagent strip [facility] Work Phone: Start: 05-04-2020 Glucose blood reagent strip [facility] Work Phone: Start: 05-04-2020 Sodium serum plasma or whole blood Eliezer Patterson Work Phone: Start: 05-04-2020 Glucose blood reagent strip [facility] Work Phone: Start: 05-04-2020 Assay of ferritin Johnny Mi Work Phone: Start: 05-04-2020 Assay of magnesium [address] Work Phone: Start: 05-04-2020 Basic metabolic pane l calcium total [address] Work Phone: Start: 05-04-2020 Blood count complete automated [address] Work Phone: Start: 05-04-2020 C-reactive protein Johnny Mi Work Phone: Start: 05-04-2020 Fibrin dgradj produc ts d-dimer quantitative Johnny Mi Work Phone: Start: 05-04-2020 Lactate dehydrogenase ldh Johnny Mi Work Phone: Start: 05-04-2020 Procalcitonin (pct) Kallie Baum Work Phone: Start: 05-03-2020 Glucose blood reagent strip [facility] Work Phone: Start: 05-03-2020 Glucose blood reagent strip [facility] Work Phone: Start: 05-03-2020 Glucose blood reagent strip [facility] Work Phone: Start: 05-03-2020 Glucose blood reagent strip [facility] Work Phone: Start: 05-03-2020 Radiologic exam ches t single view Wei Bermudez Work Phone: Start: 05-03-2020 Assay of magnesium [address] Work Phone: Start: 05-03-2020 Basic metabolic pane l calcium total [address] Work Phone: Start: 05-03-2020 Blood count complete automated [address] Work Phone: Start: 05-02-2020 Glucose blood reagent strip [facility] Work Phone: Start: 05-02-2020 Glucose blood reagent strip [facility] Work Phone: Start: 05-02-2020 Glucose blood reagent strip [facility] Work Phone: Start: 05-02-2020 Glucose blood reagent strip [facility] Work Phone: Start: 05-02-2020 Virus centrifuge enh ncd id imfluor stain ea [address] Work Phone: Start: 05-02-2020 Assay of magnesium [address] Work Phone: Start: 05-02-2020 Assay of osmolality blood Akinfemi S Saul Work Phone: Start: 05-02-2020 Basic metabolic pane l calcium total [address] Work Phone: Start: 05-02-2020 Blood count complete automated [address] Work Phone: Start: 05-01-2020 Glucose blood reagent strip [facility] Work Phone: Start: 05-01-2020 Glucose blood reagent strip [facility] Work Phone: Start: 05-01-2020 Assay of ferritin [place] T[facility] Work Phone: Start: 05-01-2020 Assay of magnesium [address] Work Phone: Start: 05-01-2020 Basic metabolic pane l calcium total [address] Work Phone: Start: 05-01-2020 Blood count complete automated [address] Work Phone: Start: 05-01-2020 C-reactive protein [place] Taleb Work Phone: Start: 05-01-2020 Fibrin dgradj produc ts d-dimer quantitative [place] Bautista Work Phone: Start: 05-01-2020 Lactate dehydrogenase ldh [place] Bautista Work Phone: Start: 05-01-2020 Procalcitonin (pct) Nad a Bautista Work Phone: Start: 04-30-2020 Glucose blood reagent strip [facility] Work Phone: Start: 04-30-2020 Glucose blood reagent strip [facility] Work Phone: Start: 04-30-2020 Glucose blood reagent strip [facility] Work Phone: Start: 04-30-2020 Glucose blood reagent strip [facility] Work Phone: Start: 04-30-2020 Radiologic exam ches t single view Wei Bermudez Work Phone: Start: 04-30-2020 Assay of [address] Work Phone: Start: 04-30-2020 Basic metabolic pane l calcium total [address] Work Phone: Start: 04-30-2020 Blood count complete automated [address] Work Phone: Start: 04-29-2020 Glucose blood reagent strip [facility] Work Phone: Start: 04-29-2020 Glucose blood reagent strip [facility] Work Phone: Start: 04-29-2020 Glucose blood reagent strip [facility] Work Phone: Start: 04-29-2020 Sodium serum plasma or whole blood [facility] Work Phone: Start: 04-29-2020 Glucose blood reagent strip [facility] Work Phone: Start: 04-29-2020 Assay of magnesium [address] Work Phone: Start: 04-29-2020 Basic metabolic pane l calcium total [address] Work Phone: Start: 04-29-2020 Blood count complete automated [address] Work Phone: Start: 04-28-2020 Glucose blood reagent strip [facility] Work Phone: Start: 04-28-2020 LAB SCANNED REPORT [facility] Start: 04-28-2020 Sodium serum plasma or whole blood [facility] [employer] Work Phone: Start: 04-28-2020 Glucose blood reagent strip [facility] [employer] Work Phone: Start: 04-28-2020 Glucose blood reagent strip [facility] Work Phone: Start: 04-28-2020 Sodium serum plasma or whole blood [facility] [employer] Work Phone: Start: 04-28-2020 Glucose blood reagent strip [employer] Work Phone: Start: 04-28-2020 Assay of ferritin [place] Taleb Work Phone: Start: 04-28-[address] of [address] Work Phone: Start: 04-28-2020 Basic metabolic pane l calcium total [address] Work Phone: Start: 04-28-2020 Blood count complete automated [address] Work Phone: Start: 04-28-2020 C-reactive protein [place] Taleb Work Phone: Start: 04-28-2020 Lactate dehydrogenase ldh [place] T[facility] Work Phone: Start: 04-28-2020 Procalcitonin (pct) Nad a Taleb Work Phone: Start: 04-27-2020 Sodium serum plasma or whole blood [facility] [employer] Work Phone: Start: 04-27-2020 Glucose blood reagent strip [facility] [employer] Work Phone: Start: 04-27-2020 Glucose blood reagent strip [facility] Work Phone: Start: 04-27-2020 Sodium serum plasma or whole blood [facility] Work Phone: Start: 04-27-2020 Glucose blood reagent strip [facility] Work Phone: Start: 04-27-2020 Radiologic exam ches t single view Wei Adhikarirou Work Phone: Start: 04-27-2020 Assay of [address] Work Phone: Start: 04-27-2020 Basic metabolic pane l calcium total [address] Work Phone: Start: 04-27-2020 Blood count complete automated [address] Work Phone: Start: 04-27-2020 C-reactive protein [place] Rory Melody Work Phone: Start: 04-27-2020 Hepatic function panel [place] Valadez Melody Work Phone: Start: 04-27-2020 Sodium serum plasma or whole blood [facility] Work Phone: Start: 04-26-2020 Glucose blood reagent strip [facility] Work Phone: Start: 04-26-2020 Sodium serum plasma or whole blood [facility] Work Phone: Start: 04-26-2020 Glucose blood reagent strip [facility] Work Phone: Start: 04-26-2020 Glucose blood reagent strip [facility] Work Phone: Start: 04-26-2020 Sodium serum plasma or whole blood [facility] Work Phone: Start: 04-26-2020 Glucose blood reagent strip [facility] Work Phone: Start: 04-26-[address] Assay of [address] Work Phone: Start: 04-26-2020 Basic metabolic pane l calcium total [address] Work Phone: Start: 04-26-2020 Blood count complete automated [address] Work Phone: Start: 04-26-2020 C-reactive protein Arle tte T Aouad Work Phone (unformatted): [phone] Start: 04-26-2020 Sodium serum plasma or whole blood [facility] Work Phone: Start: 04-25-2020 Ct thorax w/o contra st material Darlyn T Aouad Work Phone (unformatted): [phone] Start: 04-25-2020 Glucose blood reagent strip [facility] Work Phone: Start: 04-25-2020 Assay of ferritin [facility] Work Phone: Start: 04-25-2020 C-reactive protein Jimmy Resendizha Work Phone: Start: 04-25-2020 Hepatic function panel [facility] Work Phone: Start: 04-25-2020 Lactate dehydrogenase ldh [facility] Work Phone: Start: 04-25-2020 Procalcitonin (pct) Alva roth [facility] Work Phone: Start: 04-25-2020 Sodium serum plasma or whole blood [facility] Work Phone: Start: 04-25-2020 End: 04-25-2020 Glucose blood reagent strip [facility] Work Phone: Start: 04-25-2020 Sodium serum plasma or whole blood [facility] Work Phone: Start: 04-25-2020 Glucose blood reagent strip [facility] Work Phone: Start: 04-25-2020 Glucose blood reagent strip [facility] Work Phone: Start: 04-25-2020 Blood typing serologic abo Marietta Oliver Work Phone: Start: 04-25-2020 Sodium serum plasma or whole blood [facility] Work Phone: Start: 04-25-[address] Work Phone: Start: 04-25-2020 Basic metabolic pane l calcium total [address] Work Phone: Start: 04-25-2020 Blood count complete automated [address] Work Phone: Start: 04-24-2020 Urinalysis microscopic only Memo Stilesd Imam Work Phone: Start: 04-24-2020 Urnls dip stick/tabl et rgnt auto w/o microscopy Memo Belle Imam Work Phone: Start: 04-24-2020 Sodium serum plasma or whole blood [facility] [employer] Work Phone: Start: 04-24-2020 Glucose blood reagent strip [facility] Work Phone: Start: 04-24-2020 Assay of osmolality urine Memo Stilesd Imam Work Phone: Start: 04-24-2020 Assay of urine sodium N abfarhana Stilesd Imam Work Phone: Start: 04-24-2020 Creatinine other source Memo Belle Imam Work Phone: Start: 04-24-2020 Protein total xcpt refractometry urine Memo Belle Imam Work Phone: Start: 04-24-2020 Glucose blood reagent strip [facility] Work Phone: Start: 04-24-2020 Basic metabolic pane l calcium total [facility] Work Phone: Start: 04-24-2020 Fibrin dgradj produc ts d-dimer quantitative [facility] Work Phone: Start: 04-24-2020 Hemoglobin glycosylated a1c Kiptiffanie Gil Work Phone: Start: 04-24-2020 End: 04-24-2020 Glucose blood reagent strip [facility] Res[facility] toledo Work Phone: Start: 04-24-2020 Glucose blood reagent strip [facility] Work Phone: Start: 04-24-[address] Work Phone: Start: 04-24-[address] Assay of [address] Work Phone: Start: 04-24-2020 Assay of troponin quantitative Kiptiffanie Gil Work Phone: Start: 04-24-2020 BASIC METABOLIC PANE L W/ REFLEX TO MG FOR LOW K [address] Work Phone: Start: 04-24-2020 Blood count complete automated [address] Work Phone: Start: 04-24-2020 C-reactive protein [address] Work Phone: Start: 04-24-2020 Lactate dehydrogenase ldh [address] Work Phone: Start: 04-24-2020 Procalcitonin (pct) Marya [address] Work Phone: Start: 04-23-2020 Radiologic exam ches t single view Kenneth Andersen Work Phone: Start: 04-23-2020 Assay of magnesium Wend anahi Shaheen Andersen Work Phone: Start: 04-23-2020 Assay of troponin quantitative Anguselin B Nathaly Work Phone: Start: 04-23-2020 Basic metabolic pane l calcium total Anguselin B Nathaly Work Phone: Start: 04-23-2020 Blood count complete auto&auto difrntl wbc Ivanndelin B Paulifels Work Phone: Start: 04-23-2020 Natriuretic peptide Lety watkins Shaheen Andersen Work Phone: Start: 04-23-2020 Ecg routine ecg w/le ast 12 lds i&r only Kenneth Andersen Work Phone: Start: 04-23-2020 EKG REPORT [facility]pf Scanni ng Start: 04-20-2020 COVID-19 Historical Provider Tonsillectomy Christophe PA Plan of Treatment Date Care Activity Detail Author Start: 02-20-2025 Creatinine measurement Serum Creatin ine [facility] Start: 02-27-2024 Complete blood count Hemoglobin/Samir tocrit [facility] Start: 02-27-2024 Hemoglobin/Hematocrit Hemoglobin/Hem atocrit [facility] Start: 02-20-2024 Hepatitis B screening Urine Albumin:Creatinine Ratio [facility] Start: 12-23-2023 Covid-19 Vaccine () Covid-19 Vaccine () [facility] Start: 12-23-2023 Influenza vaccination [facility] Start: 10-13-2023 Creatinine measurement Serum Creatin ine [facility] Start: 10-13-2023 Serum Creatinine Serum Creatinine Cl [facility] Start: 04-23-2023 Advance Directive Discussion Advance Directive Discussion [facility] Start: 04-23-2023 Depression Assessment Depression Ass essment [facility] Start: 02-14-2023 End: 05-16-2023 CBC panel - Blood by Automated count CBC Lab STAT Renal mass, right Expected: 02/14/2023, Expires: 05/16/2023 [facility] Work Phone: Comment on above: Expected: 02/14/2023 , Expires: 05/16/2023 Start: 02-14-2023 End: 05-16-2023 PT panel - Platelet poor plasma by Coagulation assay PROTHROMBIN TIME/PT Lab STAT Renal mass, right Expected: 02/14/2023, Expires: 05/16/2023 [facility] Work Phone: Comment on above: Expected: 02/14/2023 , Expires: 05/16/2023 Start: 12-22-2022 Covid-19 Vaccine () Covid-19 Vaccine () [facility] Start: 12-22-2022 Influenza vaccination Influenza Vacc ine (#1) [facility] Start: 08-10-2022 Hemoglobin A1c measurement HbA1C [facility] Start: 08-10-2022 Hemoglobin A1c/Hemoglobin.total in Blood HbA1C [facility] Start: 04-23-2022 Advance Directive Discussion Advance Directive Discussion [facility] Start: 04-23-2022 Depression Assessment Depression Ass essment [facility] Start: 05-12-2021 Creatinine measurement Creatinine mo [place], [place] Start: 05-12-2021 Potassium monitoring Potassium monit [place], [place] Start: 05-05-2021 Creatinine measurement Creatinine mo [place] Start: 05-05-2021 Potassium monitoring Potassium monit [place] Start: 05-12-2020 End: 05-05-2021 Basic metabolic 2000 panel Basic Metabolic Panel Lab Routine NAOMIE (acute kidney injury) (HCC) Expected: 05/12/2020, Expires: 05/05/2021 [place] Comment on above: Expected: 05/12/2020 , Expires: 05/05/2021 Start: 05-12-2020 End: 05-05-2021 CBC With Auto Differential CBC With Auto Differential Lab Routine NAOMIE (acute kidney injury) (HCC) Expected: 05/12/2020, Expires: 05/05/2021 [place] Comment on above: Expected: 05/12/2020 , Expires: 05/05/2021 Start: 04-23-2020 Annual Wellness Visi t (AWV) Annual Wellness Visit (AWV) [place], [place] Start: 12-23-2019 Influenza vaccination Flu vaccine (# 1) [place], [place] Start: 10-26-2018 RSV Vaccine (1 - 1-d ose 75+ series) RSV Vaccine (1 - 1-dose 75+ series) [facility] Start: 10-26-2008 Pneumococcal 65+ yea rs Vaccine (1 of 1 - PPSV23) Pneumococcal 65+ years Vaccine (1 of 1 - PPSV23) [place], [place] Start: 2003 Hepatitis B Vaccine (1 of 3 - Risk 3-dose series) Hepatitis B Vaccine (1 of 3 - Risk 3-dose series) [facility] Start: 2003 RSV Vaccine (1 - 1-d ose 60+ series) RSV Vaccine (1 - 1-dose 60+ series) [facility] Start: 10-26-1993 Shingles Vaccine (1 of 2) Shingles Vaccine (1 of 2) [place] Start: 10-26-1993 Shingrix Vaccine (1 of 2) Shingrix Vaccine (1 of 2) [facility] Start: 10-26-1988 Diabetes Screening Diabetes Screenin g [facility] Start: 10-26-1962 DTaP/Tdap/Td vaccine (1 - Tdap) DTaP/Tdap/Td vaccine (1 - Tdap) [place], [place] Start: 10-26-1962 Urine microalbumin profile DTaP,Tdap,Td Vaccine (1 - Tdap) [facility] Start: 10-26-1961 Annual PCP 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 Disease Visit Annual PCP Team Chronic Disease Visit [facility] Start: 10-26-1961 Anxiety Screening Anxiety Screening [facility] Start: 10-26-1961 Depression Screening Depression Scre ening [facility] Start: 10-26-1961 Hepatitis B surface antibody level LDL Cholesterol [facility] Start: 10-26-1953 3 comp foot exam completed Diabetic Foot Exam [facility] Start: 10-26-1953 Diabetic foot examination Diabetic Foot Exam [facility] Start: 10-26-1953 Glaucoma screening Dilated Retinal E xam [facility] Start: 10-26-1953 Hepatitis B screening Urine Albumin:Creatinine Ratio [facility] Start: 10-26-1953 Hepatitis C antibody , confirmatory test Dilated Retinal Exam [facility] Start: 10-26-1953 Lipid panel Lipid screen [place], [place] Start: 10-26-1948 Hemoglobin A1c/Hemoglobin.total in Blood HbA1C [facility] Start: 1943 Hepatitis C screening Hepatitis C sc reen [place] Acapella Acapella Respira tory Care Routine 4X Daily until discontinued starting 04/27/2020 [place] Comment on above: 4X Daily until disco ntinued starting 04/27/2020 Basic metabolic 2000 panel BASIC METABOLIC PANEL Lab Routine Daily until discontinued starting 04/24/2020, [facility]: Daily until disconti nued starting 04/24/2020, 11 completed BIPAP BIPAP Respirator y Care Routine As Needed until discontinued starting 04/26/2020 [facility] Comment on above: As Needed until disc ontinued starting 04/26/2020 CBC CBC Lab Routine Daily until discontinued starting 04/24/2020, 12 completed [facility] Comment on above: Daily until disconti nued starting 04/24/2020, 12 completed Heated/ Humidified H igh Flow Nasal Cannula Heated/ Humidified High Flow Nasal Cannula Respiratory Care Routine Every 4hr until discontinued starting 04/26/2020 [facility] Comment on above: Every 4hr until disc ontinued starting 04/26/2020 Intermittent pulse oximetry Pulse Oximetry Spot Check Respiratory Care Routine As Needed until discontinued starting 04/24/2020 [facility] Comment on above: As Needed until disc ontinued starting 04/24/2020 Magnesium [Mass/Vol] Magnesium L ab Routine Daily until discontinued starting 04/24/2020, 12 completed [facility] Comment on above: Daily until disconti nued starting 04/24/2020, 12 completed MDI Treatment [facility] [place] Comment on above: Every 4hr while awak e until discontinued starting 04/24/2020 0800,2000 (respirato ry use only) until discontinued starting 04/28/2020 [facility]: Every 2hr As Needed until discontinued starting 04/24/2020 Every 4hr while awak e until discontinued starting 04/24/2020 Oxygen therapy [[facility] Data Set] Initiate Oxygen Therapy Protocol Respiratory Care Routine Daily until discontinued starting 04/24/2020 [facility] Comment on above: Daily until disconti nued starting 04/24/2020 [facility] Comment [facility]: As Needed until disc ontinued starting 04/24/2020 4X Daily (AC & HS) u ntil discontinued starting 04/24/2020 End: 04-25-2020 Prepare COVID-19 Convalescent Plasma, 1 Units Prepare COVID-19 Convalescent Plasma, 1 Units Blood Bank Non-Stat Once for 1 Occurrences starting 04/25/2020 until 04/25/2020 [facility] Comment on above: Once for 1 Occurrenc es starting 04/25/2020 until 04/25/2020 Prepare COVID-19 Convalescent Plasma, 1 Units Prepare COVID-19 Convalescent Plasma, 1 Units Blood Bank Routine 04/26/2020 12:17 PM EST [facility] Renal function 2000 panel - Serum or Plasma [facility] End: 04-24-2020 Respiratory care evaluation only Respiratory care evaluation only Respiratory Care Routine One Time for 1 Occurrences starting 04/24/2020 until 04/24/2020 [facility] Comment on above: One Time for 1 Occur rences starting 04/24/2020 until 04/24/2020 Spirometry panel Incentive john metry Respiratory Care Routine Every 2hr while awake until discontinued starting 04/27/2020 [facility] Comment on above: Every 2hr while awak e until discontinued starting 04/27/2020 End: 04-18-2024 US KIDNEY/BLADDER US KIDNEY/BLADDER Radiology Routine Renal mass 1 Occurrences starting 03/20/2023 until 04/18/2024 [facility] Work Phone: Comment on above: 1 Occurrences starti ng 03/20/2023 until 04/18/2024 [facility] Immunizations Immunization Date Immunization Notes Care Provider Orlando croft 02-07-2022 influenza virus vacc ine, unspecified formulation Christophe WINN [facility] 02-18-2021 SARS-CoV-2 (COVID-19 ) mRNA BNT-162b2 vax Christophe WINN [facility] 02-15-2021 influenza virus vacc ine, unspecified formulation Christophe WINN [facility] 02-15-2021 pneumococcal conjuga te vaccine, 13 valent Christophe WINN [facility] 01-23-2021 SARS-CoV-2 (COVID-19 ) mRNA BNT-162b2 vax Christophe WINN [facility] 03-16-2020 influenza virus vacc ine, unspecified formulation Christophe WINN [facility] 01-20-2019 influenza virus vacc ine, unspecified formulation Christophe WINN [facility] 01-17-2018 influenza virus vacc ine, unspecified formulation Christopheabigail WINN [facility] 01-18-2017 influenza virus vacc ine, unspecified formulation Christopheabigail WINN [facility] 01-12-2016 influenza, whole Christophe GRIS MCCANN [facility] 05-11-2015 pneumococcal conjuga te vaccine, 13 valent Christopheabigail WINN [facility] 01-01-2015 influenza virus vacc ine, unspecified formulation Christopheabigail WINN [facility] 04-04-2012 pneumococcal polysaccharide vaccine, 23 valent Christopheabigail WINN [facility] Payers Date Payer Category Payer Unknown [id number] 2020 Medicare [id number] 1959 Self-pay 1945 Unknown [id number] 2.16.8 [id number] 1943 Unknown [id number] 2.16.8 [id number] 1943 Unknown [id number] 2.16.84 [id number] 1943 Unknown [id number] 2.16.8 [id number] 1943 Unknown [id number] 2.16.8 [id number] 1943 Unknown [id number] 2.16.8 [id number] 1943 Unknown [id number] 2.16.8 [id number] Medicare [id number] 2.1 [id number] Medicare Medicare [id number] [facility] [id number] Unknown [id number] 2.16.8 [id number] Unknown [id number] 2.16.8 [id number] Social History Date Type Detail Facility Start: 04-24-2020 Tobacco smoking status NHIS Never smoker [place] Start: 04-24-2020 Tobacco use and exposure Never used [place] Start: 04-24-2020 Alcohol intake Current non-dr tillman of alcohol (finding) [place], [place] Start: 1945 Sex Assigned At Not on file M [place], [place] Exposure to SARS-CoV-2 (event) Not sure [place], [place] Start: 02-06-2023 Sex Assigned At F [facility] Start: 12-18-2022 End: 06-25-2023 Tobacco smoking status Ex-smoker (finding) [facility] Start: 01-19-2023 Tobacco smoking status Never [facility] Tobacco smoking status UTIS Tobacco smoking consumption unknown [facility] Start: 02-06-2023 History of Social function [facility] Start: 1945 Sex Assigned At Male F [facility] Medical Equipment Procedure Code Equipment Code Equipment Origin al Text Equipment Identifier Dates Start: 05-07-2020 Functional Status Date Assessment Result Facility 01-19-2023 Functional Status N/A [facility] 01-08-2023 Functional Status N/A [facility] 12-18-2022 Functional Status N/A [facility] Clinical Notes 05-11-2020 to 02-21-2024 Jose Daniel Renee MD - 06/21/2023 3:30 PM EST Note Date & Type Note Facility 02-21-2024 Note Patient Outreach (UR OLMN) JOURDAN AREVALO ([id number]) 1945 M Date Time Provider Department 02/21/24 JOSE DANIEL RENEE During your visit today, we recorded the following information about you: Allergies As of Date: 02/21/2024 (No Known Allergies) Date Reviewed: 02/21/2024 Reviewed by: Adonis Mcclure OCCA - Fully Assessed Visit Diagnosis:Screening for genitourinary condition [Z13.89] Order(s):URINALYSIS, REFLEX MICROSCOPIC [[id number]] Order #: [id number]. #:[id number] Prescriptions as of 02/25/2024 - amLODIPine (NORVASC) 10 mg tablet 1 tablet Orally Daily for 30 days - atorvastatin (LIPITOR) 10 mg tablet Take by mouth every 24 hours. - omeprazole (PRILOSEC) 40 mg capsule Take by mouth. - doxazosin (CARDURA) 2 mg tablet Take by mouth every 24 hours. - tamsulosin (FLOMAX) 0.4 mg TAKE 1 CAPSULE BY MOUTH 30 MINUTES AFTER THE SAME MEAL EACH DAY ONCE A DAY - montelukast (SINGULAIR) 10 mg tablet Take 1 tablet by mouth every afternoon. - lisinopril (ZESTRIL) 40 mg tablet Take 1 tablet by mouth every afternoon. - insulin degludec (TRESIBA FLEXTOUCH U-100) 100 unit/mL (3 mL) injection pen Inject 12 Units subcutaneously. - FREESTYLE DESTINEY 2 SENSOR kit USE DIRECTED EVERY 14 DAYS - semaglutide (OZEMPIC SUBCUTANEOUS) Inject subcutaneously. Problem List As Of Date 02/21/2024 Noted Resolved Type 2 diabetes mellitus with stage 3 chronic k*03/04/2023 Stage 3b chronic kidney disease (HCC) [N18.32] 03/04/2023 Encounter Status:Closed by [employer], PRODUSER on 02/25/24 [facility] 06-21-2023 History of Present illness Narrative Images from the original note were not included. PATIENT: Jourdan Arevalo [id number] 06/21/2023 This clinic note was copied and updated from previous note from 03/20/2023 Chief Complaint: Follow up for renal mass History of Present Illness: Jourdan Arevalo is a very pleasant 77 year old male who presents with a history of right renal mass. Solid right renal mass measuring 4.[address] A/P in the right upper pole of the kidney. Patient also has 0.6 cm-1 cm cyst in the left kidney. It was noted in outside note that the patient has been unable to get an MRI done due to creatinine levels. Suggested patient discontinue caffeine use to aid with urinary problems. Patient is s/p kidney biopsy on 02/26/23. Pathology revealed predominantly benign renal parenchyma. Copied from outside note 12/18/22 Interval Hx: The patient is visiting today to review results of renal US IMPRESSION: 4.2 CM RIGHT UPPER POLE RENAL NEOPLASM, NOT SIGNIFICANTLY CHANGED BY SIZE FROM AVAILABLE PRIORS. NO HYDRONEPHROSIS. Physical Exam: There were no vitals taken for this visit. General: Alert, no acute distress, oriented Lungs: No respiratory distress or pursed lip breathing Psych: Affect and mood normal Abdomen: There is no height or weight on file to calculate BMI. Labs and Pathology: Pathology 02/26/23 FINAL DIAGNOSIS A. Kidney, right mass, core biopsy: - Focal renal cell proliferation with predominantly benign renal parenchyma, favor papillary renal cell carcinoma - see Comment. No results found for: CREAT Labs 12/29/22 I personally reviewed all applicable laboratory and pathology data reviewed with patient Significant for renal mass Imaging: US KIDNEY/BLADDER 06/21/2023 IMPRESSION: 4.2 CM RIGHT UPPER POLE RENAL NEOPLASM, NOT SIGNIFICANTLY CHANGED BY SIZE FROM AVAILABLE PRIORS. NO HYDRONEPHROSIS. CT abd/pel 02/22/23 MRI abdomen 01/19/2023 I personally viewed all applicable imaging and interpreted them and went over the results with the patient. Assessment: 4.6cm Right Renal mass with biopsy performed on 02/26/23 showing predominantly benign renal parenchyma,favor papillary renal cell carcinoma Plan: Follow up with a repeat renal ultrasound in 9 months with a basic metabolic panel but they want to get that done locally and then follow-up with us. By signing my name below, I, Arsalan Josue, attest that this documentation has been prepared under the direction and in the presence of Dr.Christopher Daysi Renee MD. Electronically Signed: rock Mason, June 21, 2023 3:33 PM I agree with the Chief Complaint, ROS, and Past Histories independently gathered by the clinical account support specialist including scribe and or medical student and or RENEE and or resident or fellow and the remaining scribed note accurately describes my personal service to the patient. Jose Daniel Renee MD, MS [facility] [place] [facility] documented in this encounter [facility] 06-21-2023 Note HNO ID: [id number] Author: JOSE DANIEL RENEE MD Service: ? Author Type: Physician Type: Progress Notes Filed: 07/24/2023 21:10 Note Text: PATIENT: Jourdan Arevalo [id number] 06/21/2023 This clinic note was copied and updated from previous note from 03/20/2023 Chief Complaint: Follow up for renal mass History of Present Illness: Jourdan Arevalo is a very pleasant 77 year old male who presents with a history of right renal mass. Solid right renal mass measuring 4.[address] A/P in the right upper pole of the kidney. Patient also has 0.6 cm-1 cm cyst in the left kidney. It was noted in outside note that the patient has been unable to get an MRI done due to creatinine levels. Suggested patient discontinue caffeine use to aid with urinary problems. Patient is s/p kidney biopsy on 02/26/23. Pathology revealed predominantly benign renal parenchyma. Copied from outside note 12/18/22 Interval Hx: The patient is visiting today to review results of renal US IMPRESSION: 4.2 CM RIGHT UPPER POLE RENAL NEOPLASM, NOT SIGNIFICANTLY CHANGED BY SIZE FROM AVAILABLE PRIORS. NO HYDRONEPHROSIS. Physical Exam: There were no vitals taken for this visit. General: Alert, no acute distress, oriented Lungs: No respiratory distress or pursed lip breathing Psych: Affect and mood normal Abdomen: There is no height or weight on file to calculate BMI. Labs and Pathology: Pathology 02/26/23 FINAL DIAGNOSIS A. Kidney, right mass, core biopsy: - Focal renal cell proliferation with predominantly benign renal parenchyma, favor papillary renal cell carcinoma - see Comment. No results found for: CREAT Labs 12/29/22 I personally reviewed all applicable laboratory and pathology data reviewed with patient Significant for renal mass Imaging: US KIDNEY/BLADDER 06/21/2023 IMPRESSION: 4.2 CM RIGHT UPPER POLE RENAL NEOPLASM, NOT SIGNIFICANTLY CHANGED BY SIZE FROM AVAILABLE PRIORS. NO HYDRONEPHROSIS. CT abd/pel 02/22/23 MRI abdomen 01/19/2023 I personally viewed all applicable imaging and interpreted them and went over the results with the patient. Assessment: 4.6cm Right Renal mass with biopsy performed on 02/26/23 showing predominantly benign renal parenchyma,favor papillary renal cell carcinoma Plan: Follow up with a repeat renal ultrasound in 9 months with a basic metabolic panel but they want to get that done locally and then follow-up with us. By signing my name below, I, Arsalan Josue, attest that this documentation has been prepared under the direction and in the presence of Dr.Christopher Daysi Renee MD. Electronically Signed: rock Mason, June 21, 2023 3:33 PM I agree with the Chief Complaint, ROS, and Past Histories independently gathered by the clinical account support specialist including scribe and or medical student and or RENEE and or resident or fellow and the remaining scribed note accurately describes my personal service to the patient. Jose Daniel Renee MD, MS [facility] [place] [facility] 06-21-2023 Note Patient Outreach (UR OLMN) AREVALOJOURDAN ([id number]) 1945 M Date Time Provider Department 06/21/23 JOSE DANIEL RENEE During your visit today, we recorded the following information about you: Allergies As of Date: 06/21/2023 (No Known Allergies) Date Reviewed: 06/21/2023 Reviewed by: Ewa Rose MA - Fully Assessed Visit Diagnosis:Screening for genitourinary condition [Z13.89] Order(s):URINALYSIS, REFLEX MICROSCOPIC [[id number]] Order #: [id number]. #:[id number] Prescriptions as of 06/25/2023 - amLODIPine (NORVASC) 10 mg tablet 1 tablet Orally Daily for 30 days - atorvastatin (LIPITOR) 10 mg tablet Take by mouth every 24 hours. - omeprazole (PRILOSEC) 40 mg capsule Take by mouth. - doxazosin (CARDURA) 2 mg tablet Take by mouth every 24 hours. - tamsulosin (FLOMAX) 0.4 mg TAKE 1 CAPSULE BY MOUTH 30 MINUTES AFTER THE SAME MEAL EACH DAY ONCE A DAY - montelukast (SINGULAIR) 10 mg tablet Take 1 tablet by mouth every afternoon. - lisinopril (ZESTRIL) 40 mg tablet Take 1 tablet by mouth every afternoon. - insulin degludec (TRESIBA FLEXTOUCH U-100) 100 unit/mL (3 mL) injection pen Inject 12 Units subcutaneously. - FREESTYLE DESTINEY 2 SENSOR kit USE DIRECTED EVERY 14 DAYS - semaglutide (OZEMPIC SUBCUTANEOUS) Inject subcutaneously. Problem List As Of Date 06/21/2023 Noted Resolved Type 2 diabetes mellitus with stage 3 chronic k*03/04/2023 Stage 3b chronic kidney disease (HCC) [N18.32] 03/04/2023 Encounter Status:Closed by MIKAYLA COTTRELL on 06/25/23 [facility] 05-07-2023 Evaluation note Encounter Date Diagnosis Assessment Notes Apr, Type 2 diabetes mellitus with hyperglycemia (ICD-10 - E11.65) 1. Controlled, a Type 2 diabetes with A1c of 7.2%, stable, GMI IS 6.1%. No low blood sugars 2. He DID NOT appropriately decreased insulin, was taking 6 u most nights, holding if BG running under 120 mg/d/l at HS. Again reduced to Tresiba to 3 units subcu daily, will have him RTC 4 weeks to assure reduction and no need for further titration. NEEDS SIMPLICITY/REPITI TION AND WRITTEN INSTRUCTIONS. He is on Ozempic 1 mg subcu weekly and tolerating without difficulty. His blood pressure is slightly above goal of 148/72 today. We did strategize to scan his destiney 3 times a day to avoid better glycemic picture. We will have him return to clinic in 3 months to further evaluate Patient benefits from CGM modality for blood glucose checks. Low glucose alarms were off, we set low alarm for 90 mg/dL and discussed the trending arrows. He states understanding. I also set reminders for blood glucose checks. Patient states he does not take glucometer to work. I did discuss that patient should not be driving if blood glucose is under 100. If he has no modality to check blood glucose, in essence he should not be driving. He agrees to continue to take glucometer to work. 3. Patient is alert, oriented and receptive to making changes or counseling. Notes: Seen for an assessment of current glucose pattern, changes in treatment plan, counseling and coordination of care related to diabetes, risks, and benefits of treatment, medications, side effects. Given handouts to reinforce concepts reviewed during counseling, see scanned notes. TOPICS REVIEWED: 1. Time was spent reviewing: a. Basic concepts of diabetes, progressive beta cell , concepts of basal/bolus/corre ctive insulin requirements. Basal: The goal is fasting blood glucose of 90-130mg. IF fasting blood glucose starts to run under 100mg 3x's/ week, decrease dose by 10%. Bolus: The goal is to hold the blood glucose level steady meal to meal. If pt. is going to have increased physical activity after a meal, decrease the schedule meal dose prior to the activity by 30-50%. If pt. skips a meal do not take this dose. Correction: The goal is to correct an elevated glucose back into the 100-150mg range b. Nutrition: Concepts of healthy diet, encouraged to decrease saturated fat in diet and increase non-starchy vegetables and fruits in diet. BMI: Pt. needs to select one small change to decrease caloric intake or increase physical activity to help decrease weight. c. Correct treatment of hypoglycemia, carry a glucose source at all times on your person, in vehicles, and at bedside. Can use glucose tablets/4, four ounces of pop or juice equal to 15 G of carbohydrate. Blood glucose should be 100 mg/dl or higher when driving. d. ADA glucose goals for age and medical complexity reviewed e. Patient questions addressed 2. Activity/exercise : Encouraged to start any form of physical activity. Start low level and increase slowly to a minimal goal of 150 minutes/week. Limit activity to what is allowed by other issues such as cardiac, pulmonary or orthopedic restrictions. 3. Standards of care: Reminded to have an annual dilated eye exam, A1C every 3 months, urine testing for microalbumin once/year, check feet daily and report any cuts or sores that do not appear to be healing. 4. Meter: Plan to check blood glucose: Please check blood glucose levels 4 times/day. Back to back meals reveal effectiveness of bolus dosing. The blood glucose data is used to determine insulin doses and confirm symptoms for hypoglycemia and hyperglcyemia. 5. [facility]. Contact office if any issues or concerns with patterns of hypoglycemia, hyperglycemia, or diabetes medication issues. 6. Prescriptions: None needed at this time 05-07-2023. PAP/Vega and Varghese waiting for approval updated proof of income faxed on 03-22-2023 . Apr, Vitamin D deficiency (ICD-10 - E55.9) Learning About Vitamin D material was published to portal follow recommendations per renal Apr, Dietary counseling and surveillance (ICD-10 - Z71.3) Learning About Healthy Weight material was published to portal Apr, Hyperlipidemia (ICD-10 - E78.5) Learning About High Cholesterol material was published to portal Continue statin therapy, due for LIPID check, order- present with other labs for renal surviellance Apr, HTN (hypertension) (ICD-10 - I10) High Blood Pressure: Care Instructions material was published to portal. BP Above goal today. He will monitor at home Apr, nursing home current use of insulin (ICD-10 - Z79.4) Apr, CKD (chronic kidney disease) (ICD-10 - N18.9) Discussed contribution of diabetes, blood sugar excursions and hypertension as contributing factors to renal disease. Blood glucose in good control, hypertension concern for chronic elevation. Renal visit reviewed. Not suitable candidate for SGLT2 or Kerendia. Newly found renal mass, seen urology Apr, Onychomycosis (ICD-10 - B35.1) not currently causing any issues Apr, Foot deformity (ICD-10 - M21.969) Apr, BMI 27.0-27.9,adult (ICD-10 - Z68.27) Apr, Renal cancer, unspecified laterality (ICD-10 - C64.9) Apr, Other Weight stable currently [facility] 11-28-2023 History of Present illness Narrative* Jose Daniel Renee MD - 03/20/2023 11:45 AM EST Images from the original note were not included. PATIENT: Jourdan Arevalo [id number] 03/20/2023 This clinic note was copied and updated from previous note from 02/06/23 Chief Complaint: Follow up for renal mass History of Present Illness: Jourdan Arevalo is a very pleasant 77 year old male who presents with a history of right renal mass.Solid right renal mass measuring 4.[address] A/P in the right upper pole of the kidney. Patient also has 0.6 cm-1 cm cyst in the left kidney. It was noted in outside note that the patient has been unable to get an MRI done due to creatinine levels. Patient is s/p kidney biopsy on 02/26/23. Pathology revealed predominantly benign renal parenchyma. Copied from outside note 12/18/22 Interval Hx: The patient is visiting today to review results of Pathology 02/26/23 FINAL DIAGNOSIS A. Kidney, right mass, core biopsy: - Focal renal cell proliferation with predominantly benign renal parenchyma, favor papillary renal cell carcinoma - see Comment. Physical Exam: There were no vitals taken for this visit. General: Alert, no acute distress, oriented Lungs: No respiratory distress or pursed lip breathing Psych: Affect and mood normal Abdomen: There is no height or weight on file to calculate BMI. Labs and Pathology: Pathology 02/26/23 FINAL DIAGNOSIS A. Kidney, right mass, core biopsy: - Focal renal cell proliferation with predominantly benign renal parenchyma, favor papillary renal cell carcinoma - see Comment. No results found for: CREAT Labs 12/29/22 I personally reviewed all applicable laboratory and pathology data reviewed with patient Significant for renal mass Imaging: CT abd/pel 01/04/23 MRI abdomen 01/19/2023 I personally viewed all applicable imaging and interpreted them and went over the results with the patient. Assessment: 4.6cm Right Renal mass with biopsy performed on 02/26/23 showing predominantly benign renal parenchyma,favor papillary renal cell carcinoma Plan: 1.Follow up visit in 3 months with US kidney/bladder completed prior to visit Scribed for Dr. Jose Daniel Renee by Marlene Light bio medical technician on 03/20/2023 I agree with the Chief Complaint, ROS, and Past Histories independently gathered by the clinical account support specialist including scribe and or medical student and or RENEE and or resident or fellow and the remaining scribed note accurately describes my personal service to the patient. Jose Daniel Renee MD, MS [facility] [place] [facility] NoteHNO ID: [id number] Author: Jose Daniel Renee MD Service: ? Author Type: Physician Type: Progress Notes Filed: 04/13/2023 9:13 PM Note Text: PATIENT: Jourdan Arevalo [id number] 03/20/2023 This clinic note was copied and updated from previous note from 02/06/23 Chief Complaint: Follow up for renal mass History of Present Illness: Jourdan Arevalo is a very pleasant 77 year old male who presents with a history of right renal mass. Solid right renal mass measuring 4.[address] A/P in the right upper pole of the kidney. Patient also has 0.6 cm-1 cm cyst in the left kidney. It was noted in outside note that the patient has been unable to get an MRI done due to creatinine levels. Patient is s/p kidney biopsy on 02/26/23. Pathology revealed predominantly benign renal parenchyma. Copied from outside note 12/18/22 Interval Hx: The patient is visiting today to review results of Pathology 02/26/23 FINAL DIAGNOSIS A. Kidney, right mass, core biopsy: - Focal renal cell proliferation with predominantly benign renal parenchyma, favor papillary renal cell carcinoma - see Comment. Physical Exam: There were no vitals taken for this visit. General: Alert, no acute distress, oriented Lungs: No respiratory distress or pursed lip breathing Psych: Affect and mood normal Abdomen: There is no height or weight on file to calculate BMI. Labs and Pathology: Pathology 02/26/23 FINAL DIAGNOSIS A. Kidney, right mass, core biopsy: - Focal renal cell proliferation with predominantly benign renal parenchyma, favor papillary renal cell carcinoma - see Comment. No results found for: CREAT Labs 12/29/22 I personally reviewed all applicable laboratory and pathology data reviewed with patient Significant for renal mass Imaging: CT abd/pel 01/04/23 MRI abdomen 01/19/2023 I personally viewed all applicable imaging and interpreted them and went over the results with the patient. Assessment: 4.6cm Right Renal mass with biopsy performed on 02/26/23 showing predominantly benign renal parenchyma,favor papillary renal cell carcinoma Plan: 1.Follow up visit in 3 months with US kidney/bladder completed prior to visit Scribed for Dr. Jose Daniel Renee by Marlene Light bio medical technician on 03/20/2023 I agree with the Chief Complaint, ROS, and Past Histories independently gathered by the clinical account support specialist including scribe and or medical student and or RENEE and or resident or fellow and the remaining scribed note accurately describes my personal service to the patient. Jose Daniel Renee MD, MS [facility] [place] [facility] NotePatient Outreach (UROLMN) MICKEYJOURDAN ([id number]) 1945 M Date Time Provider Department 03/20/23 WEIGHT, JOSE DANIEL CORDOBAYola During your visit today, we recorded the following information about you: Allergies As of Date: 03/20/2023 (No Known Allergies) Date Reviewed: 03/20/2023 Reviewed by: Orquidea Harris MA - Fully Assessed Visit Diagnosis:Screening for genitourinary condition [Z13.89] Order(s):URINALYSIS, REFLEX MICROSCOPIC [[id number]] Order #: [id number]. #:[id number] Prescriptions as of 03/23/2023 - amLODIPine (NORVASC) 10 mg tablet 1 tablet Orally Daily for 30 days - atorvastatin (LIPITOR) 10 mg tablet Take by mouth every 24 hours. - omeprazole (PRILOSEC) 40 mg capsule Take by mouth. - doxazosin (CARDURA) 2 mg tablet Take by mouth every 24 hours. - tamsulosin (FLOMAX) 0.4 mg TAKE 1 CAPSULE BY MOUTH 30 MINUTES AFTER THE SAME MEAL EACH DAY ONCE A DAY - montelukast (SINGULAIR) 10 mg tablet Take 1 tablet by mouth every afternoon. - lisinopril (ZESTRIL) 40 mg tablet Take 1 tablet by mouth every afternoon. - insulin degludec (TRESIBA FLEXTOUCH U-100) 100 unit/mL (3 mL) injection pen Inject 12 Units subcutaneously. - FREESTYLE DESTINEY 2 SENSOR kit USE DIRECTED EVERY 14 DAYS - semaglutide (OZEMPIC SUBCUTANEOUS) Inject subcutaneously. Problem List As Of Date 03/20/2023 Noted Resolved Type 2 diabetes mellitus with stage 3 chronic k*03/04/2023 Stage 3b chronic kidney disease (HCC) [N18.32] 03/04/2023 Encounter Status:Closed by MIKAYLA COTTRELL on 03/23/23[facility] 02-27-2023 Evaluation note* Encounter Date Diagnosis Assessment Notes Treatment Notes Treatment Clinical Notes Feb, CKD (chronic kidney disease) stage 4, GFR 15-29 ml/min (ICD-10 - N18.4) He has a longstanding CKD due to DM and HTN baseline serum creatinine around 2.2 to 2.4 mg/dL.I discussed with the importance of good DM and HTN control to slow down progression of CKD. 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 He appears to be euvolemic. Continue current antihypertensive medication. Advised him to resume the amlodipine 10 mg daily. I have advised him to monitor blood pressure at home and if stays above 140 over 90 mmHg then call office. Feb, Diabetes mellitus wi th chronic kidney disease (ICD-10 - E11.22) His A1c was within the target goal. Continue to work with the diabetic clinic for DM control. Continue Tresiba and Ozempic. Due to his advanced CKD is not a suitable candidate for SGLT 2 inhibitors or Kerendia Feb, Secondary hyperparathyroidism (ICD-10 - N25.81) He has a secondary hyperparathyroidism due to the CKD but his calcium, phosphorus are within the goal. No need for calcitriol. Feb, Dyslipidemia (ICD-10 - E78.5) Continue statins. Continue monitor lipid profile and LFTs Feb, Renal mass, right (ICD-10 - N28.89) His renal ultrasound showed right kidney solid mass 3.6 cm. Continue to follow with [facility]rology at [facility] Feb, Hyperuricemia (ICD-1 0 - E79.0) He has hyperuricemia due to the CKD. He denies any recent gout flare. We will continue to monitor without medications. [facility] Other 11-07-2023 Evaluation note* Encounter Date Diagnosis Assessment Notes Treatment Notes Treatment Clinical Notes Feb, Type 2 diabetes mellitus with hyperglycemia (ICD-10 - E11.65) Patient in today for review of blood glucose logs, food logs, and insulin dosing. Patient's Destiney was downloaded with ranges between lowest 53-224 highest for the past 14 days. Average reading 119 mg/dl. CGM active 71%. Time in ranges very high 0%, high 3%, target range 97%, low 0%, and very low 0%. Patient states he has been checking his blood sugars ac, hs with a glucose goal of 90-130 ac 120-180 hs. Patient currently using Tresiba 3 units once daily. Pt states if his blood sugar was <100 at bedtime, pt would skip his dose that day. According to pt, he skipped 1-2 doses of Tresiba within past 2 weeks. Discussed with patient the importance of insulin compliance. Reviewed with patient if fasting glucose <100 3 days per week, decrease Tresiba dose by 1 unit or if before dinner blood glucose is <100 3 days per week, decrease Tresiba dose by 1 unit. Pt states understanding. Destiney report downloaded and discussed with SISI Holloway. One low noted at 53. Patient to continue with same medication regimen, Tresiba 3 units SQ daily and Ozempic 1mg SQ weekly. Notified pt if Tresiba dose reduces to 0, this is acceptable by Angelina GREENP-C. Written information was provided. Discussed meal planning examples. Encouraged patient to check glucose before meals and bedtime, fingerstick when not wearing CGM. Pt denies any issues or problems with Destiney at this time. Discussed C-Peptide lab result of 4.70 recently completed, provider notified. All questions and concerns addressed. Encouraged to follow up for next appointment with provider. 60 minutes was spent on education by Kitty SEGAL, RN [facility] Other 10-30-2023 Miscellaneous Notes* Telephone Encounter - Brigitte Castillo - 02/19/2023 1:43 PM EDT Spoke to pt and scheduled biopsy for 02/23/23. * Telephone Encounter - Jose Daniel Zamarripa MD - 02/14/2023 11:23 AM EDT RADIOLOGIST REQUEST / APPROVAL FORM STAFF RADIOLOGIST:Sunny PROCEDURE TO BE DONE UNDER: US with CT Back Up PROCEDURE REQUESTED: CORE Requested PROCEDURE: Approved TIME SLOT NEEDED: 1 Hour NOTES: Right upper pole renal mass SPECIAL LABS/ PROCESSING: none Pre-procedure labs: CBC: ordered INR: ordered COVID: not needed SIR Bleeding risk category for this procedure: intermediate-high risk. Reference from [facility] Composite Worker: [email or web address]/[email or web address] STAFF SIGNATURE: Jose Daniel Zamarripa MD DATE: February 14, 2023 TIME: 11:24 AM * Telephone Encounter - Jessie Shafer LPN - 02/14/2023 8:30 AM EDT BX. COORDINATOR INFORMATION LAB RESULTS: No results found for: INR No results found for: APTT No results found for: PLT Current Outpatient Medications Medication Sig tamsulosin (FLOMAX) 0.4 mg TAKE 1 CAPSULE BY MOUTH 30 MINUTES AFTER THE SAME MEAL EACH DAY ONCE A DAY montelukast (SINGULAIR) 10 mg tablet Take 1 tablet by mouth every afternoon. lisinopril (ZESTRIL) 40 mg tablet Take 1 tablet by mouth every afternoon. insulin degludec (TRESIBA FLEXTOUCH U-100) 100 unit/mL (3 mL) injection pen Inject 12 Units subcutaneously. FREESTYLE DESTINEY 2 SENSOR kit USE DIRECTED EVERY 14 DAYS semaglutide (OZEMPIC SUBCUTANEOUS) Inject subcutaneously. No current facility-administered medications for this visit. ALLERGIES Not on File FILMS SENT TO WORKSTATION: GUIDELINES FOR HOLDING ANTI-PLATELET AND ANTI- COAGULATION THERAPY: none on file NURSE SIGNATURE: Jessie Shafer LPN DATE: February 14, 2023 TIME: 8:30 AM * Telephone Encounter - Payal Washburn - 02/13/2023 2:59 PM EDT STAFF-INITIATED RADIOLOGY BIOPSY / ASPIRATION / DRAIN REQUEST FORM Date: February 13, 2023 Time: 2:59 PM PATIENT CONTACT INFORMATION: Best way to reach [phone] SCHEDULING: SHANELL (Specific requests must be greater than 10 business days from the date of request) RADIOLOGY SERVICE GROUP (Abdominal / Thoracic / MSK / Neuro): Abdominal- Biopsy Site: Kidney - Mass SPECIFICS OF THE REQUEST (Please be as detailed as possible): BIOPSY of MASS - KIDNEY / Biopsy Type: Unsure SPECIAL REQUESTS: TISSUE SAMPLE, LABWORK: Routine Evaluation MEDICAL DIAGNOSIS: Renal mass [N28.89] (i.e. Known primary cancer or suspected diagnosis) IMAGING STUDY AND DATE THAT IS THE BASIS OF THE REQUEST: MRI Date: 01/15/23 (Note: Requests for random organ biopsies, specifically liver and kidney random biopsies do not need imaging.) IMAGING: OUTSIDE [facility] CD: Where is study now: in chart (If the imaging was obtained outside the [facility] system, PLEASE upload for review prior to approval.) Note to all persons requesting biopsies: All biopsy requests will be scheduled as quickly as possible, based on the clinical urgency, availability of appointment times, the need to hold anti-thrombolytic therapy (aspirin and other blood thinners) and the patient s schedule, including the need for an available car pick up driver. If a percutaneous biopsy or drainage is not felt to be safe or an alternative method for establishing a diagnosis is possible, this will be discussed directly with the requesting physician. [facility] History of Present illness Narrative* Jose Daniel Renee MD - 02/06/2023 1:15 PM EDT Images from the original note were not included. PATIENT: Jourdan Arevalo [id number] REFERRING MD: 02/06/2023 NEW PATIENT VISIT Chief Complaint Consult for renal mass Co-morbids: DM, HTN, Secondary hyperparathyroidism, dyslipidemia, COPD, Emphysema Referral Consultation requested by Self for an opinion regarding renal mass. History of Present Illness Jourdan Arevalo is a very pleasant 77 year old male who presents with a history of right renal mass.Solid right renal mass measuring 4.[address] A/P in the right upper pole of the kidney. Patient also has 0.6 cm-1 cm cyst in the left kidney. It was noted in outside note that the patient has been unable to get an MRI done due to creatinine levels. Copied from outside note 12/18/22 Past Histories DM, HTN, Secondary hyperparathyroidism, dyslipidemia, COPD, Emphysema No past surgical history. 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 General: Alert, no acute distress, oriented Lungs: No respiratory distress or pursed lip breathing Psych: Affect and mood normal Abdomen: There is no height or weight on file to calculate BMI. Labs and Pathology Labs 12/29/22 I personally reviewed all applicable laboratory and pathology data reviewed with patient Significant for renal mass Imaging: CT abd/pel 01/04/23 MRI abdomen 01/19/2023 I personally viewed all applicable imaging and interpreted them and went over the results with the patient. Assessment: 4.6cm Right Renal mass Plan: 1.IR image guided biopsy and follow up 1 week after to review pathology results I spent 10 minutes reviewing outside and past medical records and my findings are noted in the HPI and assessment and plan. Scribed for Dr. Jose Daniel Renee by Marlene Light bio medical technician on 02/06/2023 I agree with the Chief Complaint, ROS, and Past Histories independently gathered by the clinical account support specialist including scribe and or medical student and or RENEE and or resident or fellow and the remaining scribed note accurately describes my personal service to the patient. Jose Daniel Renee MD, MS [facility] [place] [facility] documented [facility] Hospital Discharge instructions Patient Education 01/19/2023 09:07:29 Renal Mass Renal Mass A renal mass is an abnormal growth in the kidney. It may be found while performing an MRI, CT scan,or ultrasound to evaluate other problems of the abdomen. A renal mass that is cancerous (malignant)may grow or spread quickly. Others are not cancerous (benign). Renal masses include: Tumors. These may be malignant or benign. ?The most common type of kidney cancer in adults is renal cell carcinoma. In children, the most common type of kidney cancer is Wilms tumor. ?The most common benign tumors of the kidney include renal adenomas, oncocytomas, and angiomyolipoma (AML). Cysts. These are fluid-filled sacs that form on or in the kidney. What are the causes? Certain types of cancers, infections, or injuries can cause a renal mass. It is not always known what causes a cyst to develop in or on the kidney. What are the signs or symptoms? Often, a renal mass does not cause any signs or symptoms; most kidney cysts do not cause symptoms. How is this diagnosed? Your health care provider may recommend tests to diagnose the cause of your renal mass. These testsmay be done if a renal mass is found: Physical exam. Blood tests. Urine tests. Imaging tests, such as ultrasound, CT scan, or MRI. Biopsy. This is a small sample that is removed from the renal mass and tested in a lab. The exact tests and how often they are done will depend on: The size and appearance of the renal mass. Risk factors or medical conditions that increase your risk for problems. Any symptoms associated with the renal mass, or concerns that you have about it. Tests and physical exams may be done once, or they may be done regularly for a period of time. Tests and exams that are done regularly will help monitor whether the mass is growing and beginning to cause problems. How is this treated? Treatment is not always needed for this condition. Your health care provider may recommend careful monitoring and regular tests and exams. Treatment will depend on the cause of the mass. Treatment for a cancerous renal mass may include surgical removal, chemotherapy, radiation, or immunotherapy. Most kidney cysts do not need to be treated. Follow these instructions at home: What you need to do at home will depend on the cause of the mass. Follow the instructions that yourhealth care provider gives to you. In general: Take [id number]-[id number] and prescription medicines only as told by your health care provider. If you were prescribed an antibiotic medicine, take it as told by your health care provider. Do notstop taking the antibiotic even if you start to feel better. Follow any restrictions that are given to you by your health care provider. Keep all follow-up visits. This is important. ?You may need to see your health care provider once or twice a year to have CT scans and ultrasounds. These tests will show if your renal mass has changed or grown. Contact a health care provider if you: Have pain in your side or back (flank pain). Have a fever. Feel full soon after eating. Have pain or swelling in the abdomen. Lose weight. Get help right away if: Your pain gets worse. There is blood in your urine. You cannot urinate. You have chest pain. You have trouble breathing. These symptoms may represent a serious problem that is an emergency. Do not wait to see if the symptoms will go away. Get medical help right away. Call your local emergency services (911 in the [place] Summary A renal mass is an abnormal growth in the kidney. It may be cancerous (malignant) and grow or spread quickly, or it may not be cancerous (benign). Renal masses often do not have any signs or symptoms. Renal masses may be found while performing an MRI, CT scan, or ultrasound for other problems of theabdomen. Your health care provider may recommend that you have tests to diagnose the cause of your renal mass. These may include a physical exam, blood tests, urine tests, imaging, or a biopsy. Treatment is not always needed for this condition. Careful monitoring may be recommended. This information is not intended to replace advice given to you by your health care provider. Make sure you discuss any questions you have with your health care provider. Document Revised: 10/04/2020 Document Reviewed: 10/04/2020 [email or web address] Patient Education 2022 [email or web address]. Follow Up Care 01/12/2023 15:17:39 With:PA CHRIS, Christophe Sands, URL Address: [facility] [address], [place] [address]- When: Unknown Comments:[facility] Evaluation note* Encounter Date Diagnosis Assessment Notes Treatment Notes Treatment Clinical Notes Dec, Type 2 diabetes mellitus with hyperglycemia (ICD-10 - E11.65) 1. Controlled, a Type 2 diabetes with A1c of 6.1%, stable, GMI IS 6.1%. No low blood sugars 2. He has appropriately decreased insulin, we will further decrease Tresiba to 3 units subcu daily, we will order labs to assess pancreatic function, I have instructed him not to stop Tresiba altogether unless instructed and labs show insulin production. He is on Ozempic 1 mg subcu weekly and tolerating without difficulty. His blood pressure is slightly above goal of 148/72 today. We did strategize to scan his destiney 3 times a day to avoid better glycemic picture. We will have him return to clinic in 3 months to further evaluate Patient benefits from CGM modality for blood glucose checks. Low glucose alarms were off, we set low alarm for 90 mg/dL and discussed the trending arrows. He states understanding. I also set reminders for blood glucose checks. Patient states he does not take glucometer to work. I did discuss that patient should not be driving if blood glucose is under 100. If he has no modality to check blood glucose, in essence he should not be driving. He agrees to continue to take glucometer to work. 3. Patient is alert, oriented and receptive to making changes or counseling. Notes: Seen for an assessment of current glucose pattern, changes in treatment plan, counseling and coordination of care related to diabetes, risks, and benefits of treatment, medications, side effects. Given handouts to reinforce concepts reviewed during counseling, see scanned notes. TOPICS REVIEWED: 1. Time was spent reviewing: a. Basic concepts of diabetes, progressive beta cell , concepts of basal/bolus/correc tive insulin requirements. Basal: The goal is fasting blood glucose of 90-130mg. IF fasting blood glucose starts to run under 100mg 3x's/ week, decrease dose by 10%. Bolus: The goal is to hold the blood glucose level steady meal to meal. If pt. is going to have increased physical activity after a meal, decrease the schedule meal dose prior to the activity by 30-50%. If pt. skips a meal do not take this dose. Correction: The goal is to correct an elevated glucose back into the 100-150mg range b. Nutrition: Concepts of healthy diet, encouraged to decrease saturated fat in diet and increase non-starchy vegetables and fruits in diet. BMI: Pt. needs to select one small change to decrease caloric intake or increase physical activity to help decrease weight. c. Correct treatment of hypoglycemia, carry a glucose source at all times on your person, in vehicles, and at bedside. Can use glucose tablets/4, four ounces of pop or juice equal to 15 G of carbohydrate. Blood glucose should be 100 mg/dl or higher when driving. d. ADA glucose goals for age and medical complexity reviewed e. Patient questions addressed 2. Activity/exercise: Encouraged to start any form of physical activity. Start low level and increase slowly to a minimal goal of 150 minutes/week. Limit activity to what is allowed by other issues such as cardiac, pulmonary or orthopedic restrictions. 3. Standards of care: Reminded to have an annual dilated eye exam, A1C every 3 months, urine testing for microalbumin once/year, check feet daily and report any cuts or sores that do not appear to be healing. 4. Meter: Plan to check blood glucose: Please check blood glucose levels 4 times/day. Back to back meals reveal effectiveness of bolus dosing. The blood glucose data is used to determine insulin doses and confirm symptoms for hypoglycemia and hyperglcyemia. 5. [facility]. Contact office if any issues or concerns with patterns of hypoglycemia, hyperglycemia, or diabetes medication issues. 6. Prescriptions: None needed at this time 05/11/2022. PAP/Ozempic and Tresiba for approved 2022. Dec, Vitamin D deficiency (ICD-10 - E55.9) Learning About Vitamin D material was published to portal Dec, Dietary counseling and surveillance (ICD-10 - Z71.3) Learning About Healthy Weight material was published to portal Dec, Hyperlipidemia (ICD-10 - E78.5) Learning About High Cholesterol material was published to portal Continue statin therapy Dec, HTN (hypertension) (ICD-10 - I10) High Blood Pressure: Care Instructions material was published to portal. We did discuss surveillance and management of hypertension to mitigate progression of kidney disease. He will intermittently check his blood pressure and report elevations to Dr. Martin. This note will be forwarded to him as well. Dec, nursing home current use of insulin (ICD-10 - Z79.4) Dec, CKD (chronic kidney disease) (ICD-10 - N18.9) Discussed contribution of diabetes, blood sugar excursions and hypertension as contributing factors to renal disease. Blood glucose in good control, hypertension concern for chronic elevation. Renal visit reviewed. Not suitable candidate for SGLT2 or Kerendia. Newly found renal mass, seen urology Dec, Onychomycosis (ICD-10 - B35.1) Dec, Foot deformity (ICD-10 - M21.969) Dec, BMI 28.0-28.9,adult (ICD-10 - Z68.28) Dec, Other Weight trending down reasonably. Contributes to insulin sensitivity, likely contribution of GLP-1 therapy. We will hold at current dose [facility] Other 09-18-2023 Hospital Discharge instructions Patient Education 01/08/2023 11:06:38 Benign Prostatic Hyperplasia Benign Prostatic Hyperplasia Benign prostatic hyperplasia (BPH) is an enlarged prostate gland that is caused by the normal agingprocess. The prostate may get bigger as a man gets older. The condition is not caused by cancer. The prostate is a walnut-sized gland that is involved in the production of semen. It is located in front of the rectum and below the bladder. The bladder stores urine. The urethra carries stored urine ou t of the body. An enlarged prostate can press on the urethra. This can make it harder to pass urine. The buildup of urine in the bladder can cause infection. Back pressure and infection may progress to bladder damage and kidney (renal) failure. What are the causes? This condition is part of the normal aging process. However, not all men develop problems from thiscondition. If the prostate enlarges away from the urethra, urine flow will not be blocked. If it enlarges toward the urethra and compresses it, there will be problems passing urine. What increases the risk? This condition is more likely to develop in men older than 50 years. What are the signs or symptoms? Symptoms of this condition include: Getting up often during the night to urinate. Needing to urinate frequently during the day. Difficulty starting urine flow. Decrease in size and strength of your urine stream. Leaking (dribbling) after urinating. Inability to pass urine. This needs immediate treatment. Inability to completely empty your bladder. Pain when you pass urine. This is more common if there is also an infection. Urinary tract infection (UTI). How is this diagnosed? This condition is diagnosed based on your medical history, a physical exam, and your symptoms. Tests will also be done, such as: A post-void bladder scan. This measures any amount of urine that may remain in your bladder after you finish urinating. A digital rectal exam. In a rectal exam, your health care provider checks your prostate by putting a lubricated, gloved finger into your rectum to feel the back of your prostate gland. This exam detects the size of your gland and any abnormal lumps or growths. An exam of your urine (urinalysis). A prostate specific antigen (PSA) screening. This is a blood test used to screen for prostate cancer. An ultrasound. This test uses sound waves to electronically produce a picture of your prostate gland. Your health care provider may refer you to a specialist in kidney and prostate diseases (urologist). How is this treated? Once symptoms begin, your health care provider will monitor your condition (active surveillance or watchful waiting). Treatment for this condition will depend on the severity of your condition. Treatment may include: Observation and yearly exams. This may be the only treatment needed if your condition and symptoms are mild. Medicines to relieve your symptoms, including: ?Medicines to shrink the prostate. ?Medicines to relax the muscle of the prostate. Surgery in severe cases. Surgery may include: ?Prostatectomy. In this procedure, the prostate tissue is removed completely through an open incision or with a laparoscope or robotics. ?Transurethral resection of the prostate (TURP). In this procedure, a tool is inserted through the opening at the tip of the penis (urethra). It is used to cut away tissue of the inner core of the prostate. The pieces are removed through the same opening of the penis. This removes the blockage. ?Transurethral incision (TUIP). In this procedure, small cuts are made in the prostate. This lessens the prostate's pressure on the urethra. ?Transurethral microwave thermotherapy (TUMT). This procedure uses microwaves to create heat. The heat destroys and removes a small amount of prostate tissue. ?Transurethral needle ablation (TUNA). This procedure uses radio frequencies to destroy and remove a small amount of prostate tissue. ?Interstitial laser coagulation (ILC). This procedure uses a laser to destroy and remove a small amount of prostate tissue. ?Transurethral electrovaporization (TUVP). This procedure uses electrodes to destroy and remove a small amount of prostate tissue. ?Prostatic urethral lift. This procedure inserts an implant to push the lobes of the prostate away from the urethra. Follow these instructions at home: Take [id number] and prescription medicines only as told by your health care provider. Monitor your symptoms for any changes. Contact your health care provider with any changes. Avoid drinking large amounts of liquid before going to bed or out in public. Avoid or reduce how much caffeine or alcohol you drink. Give yourself time when you urinate. Keep all follow-up visits. This is important. Contact a health care provider if: You have unexplained back pain. Your symptoms do not get better with treatment. You develop side effects from the medicine you are taking. Your urine becomes very dark or has a bad smell. Your lower abdomen becomes distended and you have trouble passing urine. Get help right away if: You have a fever or chills. You suddenly cannot urinate. You feel light-headed or very dizzy, or you faint. There are large amounts of blood or clots in your urine. Your urinary problems become hard to manage. You develop moderate to severe low back or flank pain. The flank is the side of your body between the ribs and the hip. These symptoms may be an emergency. Get help right away. Call 911. Do not wait to see if the symptoms will go away. Do not drive yourself to the hospital. Summary Benign prostatic hyperplasia (BPH) is an enlarged prostate that is caused by the normal aging process. It is not caused by cancer. An enlarged prostate can press on the urethra. This can make it hard to pass urine. This condition is more likely to develop in men older than 50 years. Get help right away if you suddenly cannot urinate. This information is not intended to replace advice given to you by your health care provider. Make sure you discuss any questions you have with your health care provider. Document Revised: 10/26/2021 Document Reviewed: 10/26/2021 [email or web address] Patient Education 2022 [email or web address]. Follow Up Care 12/18/2022 10:34:17 With:PA CHRIS, Christophe Sands, URL Address: [facility] [address] , [place] [phone] When: Unknown Comments:after MRI of Abdomen wo Con [facility] 08-28-2023 NoteChief Complaint Referral *Renal Mass HPI Staff Evaluation requested by Dr Shashank Tejeda due to 3.6cm Rt Renal Mass. Pt is a new pt. Never before seen in our office. *Flomax 0.4mg QD therapy. HX of CKD Renal US 10/12/22 CBC/CMP 11/10/22 Denies Family Hx of Bladder, Kidney nor Prostate Cancer. Former Smoker. Denies flank pain. Denies HX of visible blood in urine Slow stream in the past. PCP prescribed Flomax. Has been taking for quite a while. Stream has improved. At least 3x/night to void. Q2-3hrs during the day. Denies difficulty getting stream started. History of Present Illness Tests reviewed: reviewed UA, referral records I have reviewed the previous health record information and history for this patient from external providers_. I have reviewed and verified the staff HPI to be accurate for this encounter. There have been no associated fever, chills, flank pain, or blood in the urine. Denies any urinary infections since last encounter. Review of Systems PHQ Score Initial Depression Screen Score: 0 ROS - Provider Constitutional: denies weight loss, denies hot flashes. Eyes: denies eye problems. Gastrointestinal: denies nausea, denies vomiting. Cardiovascular: denies chest pain or angina. Integumentary: no dryness Musculoskeletal: denies musculoskeletal symptoms. ENMT: denies otolaryngeal symptoms. Respiratory: no shortness of breath. Heme/Lymph: denies easy bleeding tendency, denies easy bruising tendency. Psychiatric: no confusion, no anxiety. Genitourinary: See HPI. Physical Exam Vitals & Measurements HR: 68(Peripheral) RR: 16 BP: 130/74 HT: 68 in HT: 173 cm WT: 84 kg WT: 184.8 lb BMI: 28.07 General Appearance: alert, no distress, well nourished, well developed male. Head: normocephalic . Eyes: normal orbit and globe. ENMT: normal examination of external ears. Chest: Lungs CTA, respirations non labored. Cardiovascular: regular rate and rhythm. Abdomen: soft, non distended, no tenderness, no mass or organomegaly, no hernia. Genitourinary: normal scrotum, normal testes, normal urethra, normal epididymis, normal vas deferens/spermatic cord. Flank Pain: none. Bladder: nonpalpable. Penis: normal shaft, normal glans. Lymph Nodes: unremarkable palpation of the cervical area. Skin: warm, dry, no bruising. Psychiatric: cooperative, affect appropriate for age, normal judgement, euthymic mood. Assessment/Plan New pt referred by Dr. Melinda Tejeda for right renal mass. 1. Right renal mass (N28.89: Other specified disorders of kidney and ureter) Renal US 10/12/22 - 3.6cm solid R renal mass and small L renal cysts with largest measuring 1.9cm Pt to get MRI of kidneys at [facility]. Unable to obtain CT AP w con due CKD. P states he has a follow up with Dr. Tejeda in Dec. Follow up in 1 month to discuss results. 2. BPH (benign prostatic hyperplasia) (N40.0: Benign prostatic hyperplasia without lower urinary tract symptoms) Pt currently takes Tamsulosin 0.4mg QD at night. Nocturia 2-3x/night. Pt to try taking Tamsulosin in the morning instead. Pt is unsure if he has ever had his PSA drawn. Denies known family hx of PSA.Will draw psa. All questions/concerns were discussed. Pt to call the office if he encounters any issues prior. Pt acknowledges understanding. Follow-up With When Contact Information PA CHRIS, Christophe Sands, URL [facility] [address], [place] [address] [phone] Additional Instructions: 1 month to discuss MRI of kidney results Patient Education Magnetic Resonance Imaging I, Missy Lundberg, personally scribed for Dr. Winn on 12/18/2022 10:31:11. . Documentation recorded by the scribe, Missy Lundberg, accurately reflects the services(s) I performed and decisions made by me. Authenticated by Dr. Winn on 12/18/2022 10:33:48. Problem List/Past Medical History Ongoing BPH (benign prostatic hyperplasia) CKD (chronic kidney disease) Diabetes Dyslipidemia Hypertension Right renal mass Secondary hyperparathyroidism Historical Vitamin D deficiency Procedure/Surgical History Tonsillectomy. Medications lisinopril 40 mg Tab montelukast 10 mg Tab omeprazole 40 mg Cap-DR, Oral, Daily Ozempic, SubCutaneous, qWeek tamsulosin 0.4 mg Cap Tresiba, SubCutaneous, Daily Vitamin D3 Allergies No Known Medication Allergies Social History Tobacco Former smoker, quit more than 30 days ago Tobacco Use:. Never Smokeless Tobacco Use:. Cigarettes, Stopped age 34 Years. Household tobacco concerns: No. Yes, 12/18/2022 Family History Lung cancer: Mother. Immunizations Vaccine Date Status influenza virus vaccine, inactivated 02/07/2022 Recorded SARS-CoV-2 (COVID-19) mRNA BNT-162b2 vax 02/18/2021 Recorded pneumococcal 13-valent vaccine 02/15/2021 Recorded influenza virus vaccine, inactivated 02/15/2021 Recorded SARS-CoV-2 (COVID-19) mRNA BNT-162b2 vax 01/23/2021 Recorded inf (more content not included)...[facility] Result Comment: Electronically Signed By: Christophe WINN MD\.br\Date and Time Signed: 12/18/22 10:33 EDT\.br\Electronically Co-Signed By: Missy Lundberg\.br\Date and Time Co-Signed: 12/18/22 10:31 [id number] Hospital Discharge instructions Patient Education 12/18/2022 10:28:07 Magnetic Resonance Imaging Magnetic Resonance Imaging Magnetic resonance imaging (MRI) is a painless test that produces detailed images of organs and tissues inside the body without using X-rays. During an MRI, strong magnets and radio waves work together to form images. MRI images may provide more details about a medical condition than X-rays, CT scans, and ultrasounds can provide. For a standard MRI, you will lie on a table that slides into a tunnel. In an open MRI, the tunnel will be open at the sides. In some cases, dye (contrast material) may be injected into your bloodstream to make the MRI images even clearer. Tell a health care provider about: Any allergies you have. All medicines you are taking, including vitamins, herbs, eye drops, creams, and [id number] medicines. Any surgeries you have had. Any medical conditions you have. Any metal you may have in your body. The magnets used in an MRI can cause metal objects in your body to move. Metal can also make it difficult to get clear images. Objects that may contain metal include: ?Any joint replacement (prosthesis), such as an artificial knee or hip. ?An implanted defibrillator, pacemaker, or neurostimulator. ?A metallic ear implant (cochlear implant). ?An artificial heart valve. ?A metallic object in the eye. ?Metal splinters. ?Bullet fragments. ?A port for delivering insulin or chemotherapy. Any tattoos you have. Some of the darker inks can cause problems with testing. Whether you are using a control implant such as an intrauterine device (IUD). Whether you are , may be , or are . Any fear of cramped spaces (claustrophobia). If this is a problem, it usually can be managed with medicines given prior to the MRI. What are the risks? Generally, this is a safe test. However, problems may occur, such as: If you have metal in your body and it is close to the area being tested, it may be hard to get high-quality images. If you are , you should avoid MRI tests during the first three months of . An MRI may affect an unborn baby. If dye is used: ?You may need to stop until the dye leaves your body naturally, if this applies. ?There is a risk of an allergic reaction to the dye. You can take medicines to prevent this reaction or to treat it if you have allergy symptoms. ?The dye can cause damage to your kidneys. Drinking plenty of water before and after the procedure can help prevent this problem. What happens before the procedure? You will be asked to remove all metal, including: ?A watch, jewelry (including jewelry in piercings), and other metal objects. ?Hearing aids. ?Dentures. ?An underwire bra. ?Makeup. Some makeup contains small amounts of metal. Braces and fillings are normally not a problem. If you are , ask your health care provider if you need to pump before your test. You may need to stop temporarily if dye will be used. What happens during the procedure? You may be given earplugs or headphones to listen to music. The MRI machine can be noisy. You will lie flat on your back on a long table. If dye will be used, an IV will be inserted into one of your veins. Dye will be injected into your IV and travel through your bloodstream. The table will slide into a tunnel that has magnets inside. When you are inside the tunnel, you will still be able to talk to your health care provider. You will be asked to lie very still while images are taken. Your health care provider will tell youwhen you can move. You may have to wait a few minutes to make sure that the images produced during the test are clear. When all images are produced, the table will slide out of the tunnel. The procedure can last from 30 minutes to over an hour. The procedure may vary among health care providers and hospitals. What can I expect after the procedure? You may be taken to a recovery area if sedation medicines were used. Your blood pressure, heart rate, breathing rate, and blood oxygen level will be monitored until you leave the hospital or clinic. If dye was used: ?It will leave your body through your urine within a day. You may be told to drink plenty of fluidsto help flush the dye out of your system. ?Do not breastfeed your child until your health care provider says that this is safe. Follow these instructions at home: You may return to your normal activities right away, or as told by your health care provider. It is up to you to get your test results. Ask your health care provider, or the department that is doing the test, when your results will be ready. Keep all follow-up visits. This is important. Talk with your health care provider about what your test results mean. Summary Magnetic resonance imaging (MRI) is a painless test that produces detailed pictures of the inside of your body without using X-rays. Strong magnets and radio waves work together to form very detailedand clear images. In some cases, dye (contrast material) may be injected into your body to make MRI images even clearer. Before your MRI, be sure to tell your health care provider about any metal you may have in your body. Talk with your health care provider about what your test results mean. This information is not intended to replace advice given to you by your health care provider. Make sure you discuss any questions you have with your health care provider. Document Revised: 12/21/2021 Document Reviewed: 08/11/2020 [email or web address] Patient Education 2022 [email or web address]. Follow Up Care 11/21/2022 14:11:05 With:PA CHRIS, Christophe Sands, URL Address: [facility] [address] [place] [address]- [phone] When: Unknown Comments:1 month to discuss MRI of kidney results [facility] 07-20-2023 Evaluation note* Encounter Date Diagnosis Assessment Notes Treatment Notes Treatment Clinical Notes Oct, CKD (chronic kidney disease) stage 4, GFR 15-29 ml/min (ICD-10 - N18.4) He has a longstanding CKD due to DM and HTN baseline serum creatinine around 2.1 to 2.2 mg/dL. His renal ultrasound showed right renal fossa and left renal cyst. I discussed with the importance of good DM and HTN control to slow down progression of CKD. 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 He appears to be euvolemic. Continue current antihypertensive medication. Oct, Diabetes mellitus wi th chronic kidney disease (ICD-10 - E11.22) His A1c was within the target goal. Continue to work with the diabetic clinic for DM control. Continue Tresiba and Ozempic. Due to his advanced CKD is not a suitable candidate for SGLT 2 inhibitors or Kerendia Oct, Secondary hyperparathyroidism (ICD-10 - N25.81) He has a secondary hyperparathyroidism due to the CKD but his calcium, phosphorus are within the goal. No need for calcitriol. Oct, Dyslipidemia (ICD-10 - E78.5) Continue statins. Continue monitor lipid profile and LFTs Oct, Renal mass, right (ICD-10 - N28.89) His renal ultrasound showed right kidney solid mass 3.6 cm. I have referred him to urology and ordered MRI of the kidney without contrast. [facility] Other 06-20-2023 Evaluation note* Encounter Date Diagnosis Assessment Notes Treatment Notes Treatment Clinical Notes Sep, Type 2 diabetes mellitus with hyperglycemia (ICD-10 - E11.65) 1. Controlled, a Type 2 diabetes with A1c of 6.0% from 5.9% continues reasonable control with no lows 2. He has appropriately decreased insulin, we will further decrease Tresiba to 3 units subcu daily, we will order labs to assess pancreatic function, I have instructed him not to stop Tresiba altogether unless instructed and labs show insulin production. He is on Ozempic 1 mg subcu weekly and tolerating without difficulty. His blood pressure is slightly above goal of 148/72 today. We did strategize to scan his destiney 3 times a day to avoid better glycemic picture. We will have him return to clinic in 3 months to further evaluate Patient benefits from CGM modality for blood glucose checks. Low glucose alarms were off, we set low alarm for 90 mg/dL and discussed the trending arrows. He states understanding. I also set reminders for blood glucose checks. Patient states he does not take glucometer to work. I did discuss that patient should not be driving if blood glucose is under 100. If he has no modality to check blood glucose, in essence he should not be driving. He agrees to continue to take glucometer to work. 3. Patient is alert, oriented and receptive to making changes or counseling. Notes: Seen for an assessment of current glucose pattern, changes in treatment plan, counseling and coordination of care related to diabetes, risks, and benefits of treatment, medications, side effects. Given handouts to reinforce concepts reviewed during counseling, see scanned notes. TOPICS REVIEWED: 1. Time was spent reviewing: a. Basic concepts of diabetes, progressive beta cell , concepts of basal/bolus/correc tive insulin requirements. Basal: The goal is fasting blood glucose of 90-130mg. IF fasting blood glucose starts to run under 100mg 3x's/ week, decrease dose by 10%. Bolus: The goal is to hold the blood glucose level steady meal to meal. If pt. is going to have increased physical activity after a meal, decrease the schedule meal dose prior to the activity by 30-50%. If pt. skips a meal do not take this dose. Correction: The goal is to correct an elevated glucose back into the 100-150mg range b. Nutrition: Concepts of healthy diet, encouraged to decrease saturated fat in diet and increase non-starchy vegetables and fruits in diet. BMI: Pt. needs to select one small change to decrease caloric intake or increase physical activity to help decrease weight. c. Correct treatment of hypoglycemia, carry a glucose source at all times on your person, in vehicles, and at bedside. Can use glucose tablets/4, four ounces of pop or juice equal to 15 G of carbohydrate. Blood glucose should be 100 mg/dl or higher when driving. d. ADA glucose goals for age and medical complexity reviewed e. Patient questions addressed 2. Activity/exercise: Encouraged to start any form of physical activity. Start low level and increase slowly to a minimal goal of 150 minutes/week. Limit activity to what is allowed by other issues such as cardiac, pulmonary or orthopedic restrictions. 3. Standards of care: Reminded to have an annual dilated eye exam, A1C every 3 months, urine testing for microalbumin once/year, check feet daily and report any cuts or sores that do not appear to be healing. 4. Meter: Plan to check blood glucose: Please check blood glucose levels 4 times/day. Back to back meals reveal effectiveness of bolus dosing. The blood glucose data is used to determine insulin doses and confirm symptoms for hypoglycemia and hyperglcyemia. 5. [facility]. Contact office if any issues or concerns with patterns of hypoglycemia, hyperglycemia, or diabetes medication issues. 6. Prescriptions: None needed at this time 05/11/2022. PAP/Ozempic and Tresiba for approved 2022. Sep, Vitamin D deficiency (ICD-10 - E55.9) Learning About Vitamin D material was published to portal Sep, Dietary counseling and surveillance (ICD-10 - Z71.3) Learning About Healthy Weight material was published to portal Sep, Hyperlipidemia (ICD-10 - E78.5) Learning About High Cholesterol material was published to portal Continue statin therapy Sep, HTN (hypertension) (ICD-10 - I10) Above goal today. Goal of less than 140/90. High Blood Pressure: Care Instructions material was published to portal. We did discuss surveillance and management of hypertension to mitigate progression of kidney disease. He will intermittently check his blood pressure and report elevations to Dr. Martin. This note will be forwarded to him as well. Sep, nursing home current use of insulin (ICD-10 - Z79.4) Sep, CKD (chronic kidney disease) (ICD-10 - N18.9) Discussed contribution of diabetes, blood sugar excursions and hypertension as contributing factors to renal disease. Blood glucose in good control, hypertension concern for chronic elevation. Renal visit reviewed. Not suitable candidate for SGLT2 or Kerendia Sep, Onychomycosis (ICD-10 - B35.1) Sep, Foot deformity (ICD-10 - M21.969) Sep, BMI 28.0-28.9,adult (ICD-10 - Z68.28) Sep, Other Weight trending down reasonably. Contributes to insulin sensitivity, likely contribution of GLP-1 therapy. We will hold at current dose [facility] Other 06-14-2023 Evaluation note* Encounter Date Diagnosis Assessment Notes Treatment Notes Treatment Clinical Notes Sep, CKD (chronic kidney disease) stage 4, GFR 15-29 ml/min (ICD-10 - N18.4) It was a pleasure to see Mr. Arevalo in our office for an evaluation management of CKD. As you know he has a longstanding CKD due to DM and HTN with baseline serum creatinine 2.2 mg/dL. I have ordered a renal ultrasound to evaluate anatomy. I ordered a UA and UPCR to evaluate for hematuria proteinuria. I discussed with the importance of good DM and HTN control to slow down progression of CKD. 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 He appears to be euvolemic. Continue current antihypertensive medication. Sep, Diabetes mellitus wi th chronic kidney disease (ICD-10 - E11.22) His A1c is within the target goal. Continue to work with the diabetic clinic for DM control. Continue Tresiba and Ozempic. Due to his advanced CKD is not a suitable candidate for SGLT 2 inhibitors or Kerendia Sep, Secondary hyperparathyroidism (ICD-10 - N25.81) Calcium is within normal limit. We will check PTH and vitamin D Sep, Dyslipidemia (ICD-10 - E78.5) Continue statins. Continue monitor lipid profile and LFTs [facility] Other 01-19-2023 Evaluation note* Encounter Date Diagnosis Assessment Notes Treatment Notes Treatment Clinical Notes Apr, Type 2 diabetes mellitus with hyperglycemia (ICD-10 - E11.65) 1. Controlled, a Type 2 diabetes with A1c of 6.0% from 5.9% continues reasonable control with no lows 2. Patient with notable decreased blood sugars from night to morning. We will decrease his Tresiba from 12 units to 11 units. He has historically changed basal dosing daily instead of based on trend. This was reviewed with patient verbalizing new dose and how to titrate accurately. He will continue Ozempic 1 mg subcu weekly. We are thankful for patient assistance for his Ozempic.. Could use SGLT2 for secondary benefit but with GFR last noted at 28 will not provide glycemic control. We will request labs from Dr. Lyons's office. Refer patient to podiatry. Patient benefits from CGM modality for blood glucose checks. Low glucose alarms were off, we set low alarm for 90 mg/dL and discussed the trending arrows. He states understanding. I also set reminders for blood glucose checks. Patient states he does not take glucometer to work. I did discuss that patient should not be driving if blood glucose is under 100. If he has no modality to check blood glucose, in essence he should not be driving. He agrees to continue to take glucometer to work. 3. Patient is alert, oriented and receptive to making changes or counseling. Notes: Seen for an assessment of current glucose pattern, changes in treatment plan, counseling and coordination of care related to diabetes, risks, and benefits of treatment, medications, side effects. Given handouts to reinforce concepts reviewed during counseling, see scanned notes. TOPICS REVIEWED: 1. Time was spent reviewing: a. Basic concepts of diabetes, progressive beta cell , concepts of basal/bolus/correc tive insulin requirements. Basal: The goal is fasting blood glucose of 90-130mg. IF fasting blood glucose starts to run under 100mg 3x's/ week, decrease dose by 10%. Bolus: The goal is to hold the blood glucose level steady meal to meal. If pt. is going to have increased physical activity after a meal, decrease the schedule meal dose prior to the activity by 30-50%. If pt. skips a meal do not take this dose. Correction: The goal is to correct an elevated glucose back into the 100-150mg range b. Nutrition: Concepts of healthy diet, encouraged to decrease saturated fat in diet and increase non-starchy vegetables and fruits in diet. BMI: Pt. needs to select one small change to decrease caloric intake or increase physical activity to help decrease weight. c. Correct treatment of hypoglycemia, carry a glucose source at all times on your person, in vehicles, and at bedside. Can use glucose tablets/4, four ounces of pop or juice equal to 15 G of carbohydrate. Blood glucose should be 100 mg/dl or higher when driving. d. ADA glucose goals for age and medical complexity reviewed e. Patient questions addressed 2. Activity/exercise: Encouraged to start any form of physical activity. Start low level and increase slowly to a minimal goal of 150 minutes/week. Limit activity to what is allowed by other issues such as cardiac, pulmonary or orthopedic restrictions. 3. Standards of care: Reminded to have an annual dilated eye exam, A1C every 3 months, urine testing for microalbumin once/year, check feet daily and report any cuts or sores that do not appear to be healing. 4. Meter: Plan to check blood glucose: Please check blood glucose levels 4 times/day. Back to back meals reveal effectiveness of bolus dosing. The blood glucose data is used to determine insulin doses and confirm symptoms for hypoglycemia and hyperglcyemia. 5. [facility] 3 [facility]. Contact office if any issues or concerns with patterns of hypoglycemia, hyperglycemia, or diabetes medication issues. 6. Prescriptions: None needed at this time 05/11/2022. PAP/Ozempic and Tresiba for approved 2022. Apr, Vitamin D deficiency (ICD-10 - E55.9) Learning About Vitamin D material was published to portal Apr, Dietary counseling and surveillance (ICD-10 - Z71.3) Learning About Healthy Weight material was published to portal Apr, Hyperlipidemia (ICD-10 - E78.5) Learning About High Cholesterol material was published to portal Apr, HTN (hypertension) (ICD-10 - I10) Above goal today. Goal of less than 140/90. High Blood Pressure: Care Instructions material was published to portal. We did discuss surveillance and management of hypertension to mitigate progression of kidney disease. He will intermittently check his blood pressure and report elevations to Dr. Martin. This note will be forwarded to him as well. 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 Blood glucose in good control, hypertension concern for chronic elevation. Patient was agreeable to see NEPHROLOGY in this building, but did not respond to referral outreach. . Patient on ACEi-- dual BP management, and Renal protection by class. Holding SGLT2i for now Apr, BMI 27.0-27.9,adult (ICD-10 - Z68.27) Apr, Onychomycosis (ICD-10 - B35.1) Apr, Foot deformity (ICD-10 - M21.969) Apr, Other Weight trending down reasonably. Contributes to insulin sensitivity, likely contribution of GLP-1 therapy. We will hold at current dose [facility] Other 12-21-2022 Evaluation note* Encounter Date Diagnosis Assessment Notes Treatment Notes Treatment Clinical Notes Mar, Type 2 diabetes mellitus with hyperglycemia (ICD-10 - E11.65) Patient in today for review of blood glucose logs, food logs, and medication dosing. Patient's Destiney was downloaded with ranges between lowest 60-146 highest for the past 14 days. Average reading 107 mg/dl. CGM active 52%. Time in ranges very high 0%, high 1%, target range 92%, low 7%, and very low 0%. Patient states he has been checking his blood sugars ac, hs with a glucose goal of 90-130 ac 120-180 hs. Discussed with patient the importance of checking his blood glucose before meals and bedtime. Pt admits to leaving his Destiney reader at home during the day. Patient has been Taking Ozempic 1 mg injection weekly and Tresiba 12 units daily. Destiney report downloaded and discussed with SISI Holloway. A few lows noted, as well as, 52% of active time. Per DCS for patient to continue Ozempic 1 mg injection weekly and reduce Tresiba from 12 units to 10 units daily. Written information was provided. Offered to set up reminders on Destiney reader, pt declined. Strongly encouraged patient to check glucose before meals and bedtime. Pt agrees to increase checking his blood glucose, before meals and bedtime. Pt denies any issues or problems with his Destiney at this time. All questions and concerns addressed. Encouraged to follow up for next appointment. 30 minutes was spent on education by Kitty SEGAL, RN. [facility] Other 10-06-2022 Evaluation note* Encounter Date Diagnosis Assessment Notes Treatment Notes Treatment Clinical Notes Jan, Type 2 diabetes mellitus with hyperglycemia (ICD-10 - E11.65) GLP1RA: Ozempic 1 mg subcu weekly SGLT2i: Consider to reduce basal insulin, consider GFR, current 11% hypoglycemia INSULIN Basal: Tresiba INSULIN Bolus: No on GLP-1 RA Metformin: No renal CGM: Benefits 1. Controlled, a Type 2 diabetes with A1c of 5.9% (previous 6.1 07/2021). Increased lows did not decrease Tresiba per recommendations 11% 2. A1c 5.9% but with inreasing low blood sugars. He continued Tresiba 14 u and did not decrease as recommended, instead held dose some days. Today we will reduce to 10 u daily, patient was able to teach back instructions regarding reduction and further reductions when warranted. Goal for patient would be between 7 and 8% due to age and comorbidities. We will continue Ozempic 1 mg subcu weekly, he us happy with his weight control Patient benefits from CGM modality for blood glucose checks. Low glucose alarms were off, we set low alarm for 90 mg/dL and discussed the trending arrows. He states understanding. I also set reminders for blood glucose checks. Patient states he does not take glucometer to work. I did discuss that patient should not be driving if blood glucose is under 100. If he has no modality to check blood glucose, in essence he should not be driving. He agrees to continue to take glucometer to work. I will see patient back in clinic in 8 weeks to assure mitigation of low blood glucose. He is agreeable to reestablish with nephrology regarding declined eGFR, microalbuminuria and hypertension despite good control. SGLt2i could be considered relative to GFR without likely glycemic impact, but will need to readress with mitigation of low blood glucose levels. 3. Patient is alert, oriented and receptive to making changes or counseling. Notes: Seen for an assessment of current glucose pattern, changes in treatment plan, counseling and coordination of care related to diabetes, risks, and benefits of treatment, medications, side effects. Given handouts to reinforce concepts reviewed during counseling, see scanned notes. TOPICS REVIEWED: 1. Time was spent reviewing: a. Basic concepts of diabetes, progressive beta cell , concepts of basal/bolus/correcti ve insulin requirements. Basal: The goal is fasting blood glucose of 90-130mg. IF fasting blood glucose starts to run under 100mg 3x's/ week, decrease dose by 10%. Bolus: The goal is to hold the blood glucose level steady meal to meal. If pt. is going to have increased physical activity after a meal, decrease the schedule meal dose prior to the activity by 30-50%. If pt. skips a meal do not take this dose. Correction: The goal is to correct an elevated glucose back into the 100-150mg range b. Nutrition: Concepts of healthy diet, encouraged to decrease saturated fat in diet and increase non-starchy vegetables and fruits in diet. BMI: Pt. needs to select one small change to decrease caloric intake or increase physical activity to help decrease weight. c. Correct treatment of hypoglycemia, carry a glucose source at all times on your person, in vehicles, and at bedside. Can use glucose tablets/4, four ounces of pop or juice equal to 15 G of carbohydrate. Blood glucose should be 100 mg/dl or higher when driving. d. ADA glucose goals for age and medical complexity reviewed e. Patient questions addressed 2. Activity/exercise: Encouraged to start any form of physical activity. Start low level and increase slowly to a minimal goal of 150 minutes/week. Limit activity to what is allowed by other issues such as cardiac, pulmonary or orthopedic restrictions. 3. Standards of care: Reminded to have an annual dilated eye exam, A1C every 3 months, urine testing for microalbumin once/year, check feet daily and report any cuts or sores that do not appear to be healing. 4. Meter: Plan to check blood glucose: Please check blood glucose levels 4 times/day. Back to back meals reveal effectiveness of bolus dosing. The blood glucose data is used to determine insulin doses and confirm symptoms for hypoglycemia and hyperglcyemia. 5. [facility] Contact office if any issues or concerns with patterns of hypoglycemia, hyperglycemia, or diabetes medication issues. 6. Prescriptions: None needed at this time 11-10-21 Jan, Vitamin D deficiency (ICD-10 - E55.9) Learning About Vitamin D material was published to portal Jan, Dietary counseling and surveillance (ICD-10 - Z71.3) Learning About Healthy Weight material was published to portal Jan, Hyperlipidemia (ICD-10 - E78.5) Learning About High Cholesterol material was published to portal Jan, HTN (hypertension) (ICD-10 - I10) Above goal today. Goal of less than 140/90. High Blood Pressure: Care Instructions material was published to portal. We did discuss surveillance and management of hypertension to mitigate progression of kidney disease. He will intermittently check his blood pressure and report elevations to Dr. Martin. This note will be forwarded to him as well. 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 Blood glucose in good control, hypertension concern for chronic elevation. Patient agreeable and would like to see NEPHROLOGY in this building. Patient on ACEi-- dual BP management, and Renal protection by class. Holding SGLT2i for now Jan, BMI 27.0-27.9,adult (ICD-10 - Z68.27) Jan, Other Weight trending down reasonably. Contributes to insulin sensitivity, likely contribution of GLP-1 therapy. We will hold at current dose [facility] Other 07-21-2022 Evaluation note* Encounter Date Diagnosis Assessment Notes Treatment Notes Treatment Clinical Notes Oct, Type 2 diabetes mellitus with hyperglycemia (ICD-10 - E11.65) GLP1RA: Ozempic 1 mg subcu weekly SGLT2i: Consider to reduce basal insulin, consider GFR INSULIN Basal: Tresiba INSULIN Bolus: No GLP-1 RA Metformin: No renal CGM: Benefits 1. Controlled, a Type 2 diabetes with A1c of 5.9% (previous 6.1 07/2021). 3% low 54-69 2. A1c 5.9% but with low blood sugars. Patient did escalate Tresiba to 14 units. We will reduce to 12 units today to avoid hypoglycemia. Goal for patient would be between 7 and 8% due to age and comorbidities. We will continue Ozempic 1 mg subcu weekly. I have asked patient to monitor blood glucose once weekly and decrease Tresiba by 1 unit if trending blood glucose 3 of 7 days is under 100. He states understanding. Patient benefits from CGM modality for blood glucose checks. Low glucose alarms were off, we set low alarm for 90 mg/dL and discussed the trending arrows. He states understanding. I also set reminders for blood glucose checks. Patient states he does not take glucometer to work. I did discuss that patient should not be driving if blood glucose is under 100. If he has no modality to check blood glucose, in essence he should not be driving. He agrees to take glucometer to work. I will see patient back in clinic in 8 weeks to assure mitigation of low blood glucose. 3. Patient is alert, oriented and receptive to making changes or counseling. Notes: Seen for an assessment of current glucose pattern, changes in treatment plan, counseling and coordination of care related to diabetes, risks, and benefits of treatment, medications, side effects. Given handouts to reinforce concepts reviewed during counseling, see scanned notes. TOPICS REVIEWED: 1. Time was spent reviewing: a. Basic concepts of diabetes, progressive beta cell , concepts of basal/bolus/correc tive insulin requirements. Basal: The goal is fasting blood glucose of 90-130mg. IF fasting blood glucose starts to run under 100mg 3x's/ week, decrease dose by 10%. Bolus: The goal is to hold the blood glucose level steady meal to meal. If pt. is going to have increased physical activity after a meal, decrease the schedule meal dose prior to the activity by 30-50%. If pt. skips a meal do not take this dose. Correction: The goal is to correct an elevated glucose back into the 100-150mg range b. Nutrition: Concepts of healthy diet, encouraged to decrease saturated fat in diet and increase non-starchy vegetables and fruits in diet. BMI: Pt. needs to select one small change to decrease caloric intake or increase physical activity to help decrease weight. c. Correct treatment of hypoglycemia, carry a glucose source at all times on your person, in vehicles, and at bedside. Can use glucose tablets/4, four ounces of pop or juice equal to 15 G of carbohydrate. Blood glucose should be 100 mg/dl or higher when driving. d. ADA glucose goals for age and medical complexity reviewed e. Patient questions addressed 2. Activity/exercise: Encouraged to start any form of physical activity. Start low level and increase slowly to a minimal goal of 150 minutes/week. Limit activity to what is allowed by other issues such as cardiac, pulmonary or orthopedic restrictions. 3. Standards of care: Reminded to have an annual dilated eye exam, A1C every 3 months, urine testing for microalbumin once/year, check feet daily and report any cuts or sores that do not appear to be healing. 4. Meter: Plan to check blood glucose: Please check blood glucose levels 4 times/day. Back to back meals reveal effectiveness of bolus dosing. The blood glucose data is used to determine insulin doses and confirm symptoms for hypoglycemia and hyperglcyemia. 5. [facility]. Contact office if any issues or concerns with patterns of hypoglycemia, hyperglycemia, or diabetes medication issues. 6. Prescriptions: None needed at this time 11-10-21 Oct, Vitamin D deficiency (ICD-10 - E55.9) Learning About Vitamin D material was published to portal Oct, Dietary counseling and surveillance (ICD-10 - Z71.3) Learning About Healthy Weight material was published to portal Oct, Hyperlipidemia (ICD-10 - E78.5) Learning About High Cholesterol material was published to portal Oct, HTN (hypertension) (ICD-10 - I10) Above goal today. Goal of less than 140/90. High Blood Pressure: Care Instructions material was published to portal. We did discuss surveillance and management of hypertension to mitigate progression of kidney disease. He will intermittently check his blood pressure and report elevations to Dr. Martin. This note will be forwarded to him as well. 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 Blood glucose in good control, hypertension concern for chronic elevation, will forward to PCP. Patient would like to see Dr. Tejeda in this building, would like to discuss with primary care first. Patient on ACEi-- dual BP management, and Renal protection by class Oct, BMI 26.0-26.9,adult (ICD-10 - Z68.26) Weight trending down reasonably. Contributes to insulin sensitivity, likely contribution of GLP-1 therapy. We will hold at current dose [facility] Other 01-06-2022 Evaluation note* Encounter Date Diagnosis Assessment Notes Treatment Notes Treatment Clinical Notes Apr, Type 2 diabetes mellitus with hyperglycemia (ICD-10 - E11.65) ASSESSMENT: 1. Uncontrolled, a Type 2 diabetes with A1c of 6.2% 2. Stable AEB A1C. Note toleration of A1C GOAL under 7 d/t age. He will continue Tresiba 14 units nightly between midnight and 1 AM when he returns home, she will continue Ozempic 1mg once weekly on Sundays as he is tolerating 1 mg. Will consider escalation when FDA approves increased dose. He is interested in seeing Dr. Tejeda locally for CKD 3, he will discuss first with primary care and obtain referral at that time. We did discuss caution trimming toenails, mild excoriation to right fourth toe without inflammation. We discussed diabetic foot care in length. He will return to clinic in 3 months, we will prepare his patient assistance for cross prohibitive Tresiba and Ozempic treatments. He will have labs done for surveillance of lipids, vitamin D, vitamin B12 and urine microalbumin creatinine ratio prior to next visit. His blood pressure is elevated today. We did discuss blood pressure checks at home with notification of Dr. Martin if maintains elevations. He states understanding. 3. Patient is alert, oriented and receptive to making changes or counseling. Notes: Seen for an assessment of current glucose pattern, changes in treatment plan, counseling and coordination of care related to diabetes, risks, and benefits of treatment, medications, side effects. Given handouts to reinforce concepts reviewed during counseling, see scanned notes. TOPICS REVIEWED: 1. Time was spent reviewing: a. Basic concepts of diabetes, progressive beta cell , concepts of basal/bolus/correc tive insulin requirements. Basal: The goal is fasting blood glucose of 90-130mg. IF fasting blood glucose starts to run under 100mg 3x's/ week, decrease dose by 10%. Bolus: The goal is to hold the blood glucose level steady meal to meal. If pt. is going to have increased physical activity after a meal, decrease the schedule meal dose prior to the activity by 30-50%. If pt. skips a meal do not take this dose. Correction: The goal is to correct an elevated glucose back into the 100-150mg range b. Nutrition: Concepts of healthy diet, encouraged to decrease saturated fat in diet and increase non-starchy vegetables and fruits in diet. BMI: Pt. needs to select one small change to decrease caloric intake or increase physical activity to help decrease weight. c. Correct treatment of hypoglycemia, carry a glucose source at all times on your person, in vehicles, and at bedside. Can use glucose tablets/4, four ounces of pop or juice equal to 15 G of carbohydrate. Blood glucose should be 100 mg/dl or higher when driving. d. ADA glucose goals for age and medical complexity reviewed e. Patient questions addressed 2. Activity/exercise: Encouraged to start any form of physical activity. Start low level and increase slowly to a minimal goal of 150 minutes/week. Limit activity to what is allowed by other issues such as cardiac, pulmonary or orthopedic restrictions. 3. Standards of care: Reminded to have an annual dilated eye exam, A1C every 3 months, urine testing for microalbumin once/year, check feet daily and report any cuts or sores that do not appear to be healing. 4. Meter: Plan to check blood glucose: Please check blood glucose levels 4 times/day. Back to back meals reveal effectiveness of bolus dosing. The blood glucose data is used to determine insulin doses and confirm symptoms for hypoglycemia and hyperglcyemia. 5. [facility]. Contact office if any issues or concerns with patterns of hypoglycemia, hyperglycemia, or diabetes medication issues. 6. Prescriptions: None needed at this time. Per patient gets PAP for [facility], [facility] gave him the paperwork for the PAP to fill out and mail back to us today 04-28-21 Apr, Vitamin D deficiency (ICD-10 - E55.9) Learning About Vitamin D material was published to portal Apr, Dietary counseling and surveillance (ICD-10 - Z71.3) Learning About Healthy Weight material was published to portal Apr, Hyperlipidemia (ICD-10 - E78.5) Learning About High Cholesterol material was published to portal Apr, HTN (hypertension) (ICD-10 - I10) High Blood Pressure: Care Instructions material was published to portal. We did discuss surveillance and management of hypertension to mitigate progression of kidney disease. He will intermittently check his blood pressure and report elevations to Dr. Martin. This note will be forwarded to him as well. Apr, nursing home current use of insulin (ICD-10 - Z79.4) Apr, BMI 27.0-27.9,adult (ICD-10 - Z68.27) Expect improvement secondary to GLP-1 use. Weight stable at this point. Apr, CKD (chronic kidney disease) (ICD-10 - N18.9) Discussed contribution of diabetes, blood sugar excursions and hypertension as contributing factors to renal disease. Blood glucose in good control, hypertension concern for chronic elevation, will forward to PCP. Patient would like to see Dr. Tejeda in this building, would like to discuss with primary care first. Patient on ACEi-- dual BP management, and Renal protection by [employer] Other 09-22-2021 Evaluation note* Encounter Date Diagnosis Assessment Notes Treatment Notes Treatment Clinical Notes Dec, Type 2 diabetes mellitus with hyperglycemia (ICD-10 - E11.65) ASSESSMENT: 1. controlled Type 2 diabetes with A1c of 6.3% 2. Blood glucose level of 189 today nonfasting. 3. Patient is alert, oriented and receptive to making changes or counseling. Notes: Seen for an assessment of current glucose pattern, changes in treatment plan, counseling and coordination of care related to diabetes, risks, and benefits of treatment, medications, side effects. Given handouts to reinforce concepts reviewed during counseling, see scanned notes. TOPICS REVIEWED: 1. Time was spent reviewing: a. Basic concepts of diabetes, progressive beta cell , concepts of basal/bolus/correc tive insulin requirements. Basal: The goal is fasting blood glucose of 90-130mg. IF fasting blood glucose starts to run under 100mg 3x's/ week, decrease dose by 10%. Bolus: The goal is to hold the blood glucose level steady meal to meal. If pt. is going to have increased physical activity after a meal, decrease the schedule meal dose prior to the activity by 30-50%. If pt. skips a meal do not take this dose. Correction: The goal is to correct an elevated glucose back into the 100-150mg range b. Nutrition: Concepts of healthy diet, encouraged to decrease saturated fat in diet and increase non-starchy vegetables and fruits in diet. BMI: Pt. needs to select one small change to decrease caloric intake or increase physical activity to help decrease weight. c. Correct treatment of hypoglycemia, carry a glucose source at all times on your person, in vehicles, and at bedside. Can use glucose tablets/4, four ounces of pop or juice equal to 15 G of carbohydrate. Blood glucose should be 100 mg/dl or higher when driving. d. ADA glucose goals for age and medical complexity reviewed e. Patient questions addressed 2. Activity/exercise: Encouraged to start any form of physical activity. Start low level and increase slowly to a minimal goal of 150 minutes/week. Limit activity to what is allowed by other issues such as cardiac, pulmonary or orthopedic restrictions. 3. Standards of care: Reminded to have an annual dilated eye exam, A1C every 3 months, urine testing for microalbumin once/year, check feet daily and report any cuts or sores that do not appear to be healing. 4. Meter: Plan to check blood glucose: Please check blood glucose levels 4 times/day. Back to back meals reveal effectiveness of bolus dosing. The blood glucose data is used to determine insulin doses and confirm symptoms for hypoglycemia and hyperglcyemia. 5. [facility]. Contact office if any issues or concerns with patterns of hypoglycemia, hyperglycemia, or diabetes medication issues. 6. Prescriptions: None needed at this time. 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 (ICD-10 - Z79.4) Dec, Type 2 diabetes mellitus with hyperglycemia, without long-term current use of insulin (ICD-10 - E11.65) Dec, Hypertension, unspecified type (ICD-10 - I10) Dec, Hyperlipidemia, unspecified hyperlipidemia type (ICD-10 - E78.5) Dec, Overweight (BMI 25.0-29.9) (ICD-10 - E66.3) Dec, CKD (chronic kidney disease) (ICD-10 - N18.9) [facility] Other 01-19-2021 History general Narrative - Reported* Type Description Date Medical History BPH Medical History kidney disease Medical History COPD Medical History hypertension Medical History type II diabetes Medical History Covid 11 May 2020 [facility] Other 01-19-2021 History general Narrative - Reported* Type Description Date Medical History BPH Medical History kidney disease Medical History COPD Medical History hypertension Medical History type II diabetes Medical History Covid 11 May 2020 Surgical History T &A Hospitalization History See Above [facility] Other 01-19-2021 History general Narrative - Reported* Type Description Date Medical History BPH Medical History kidney disease Medical History COPD Medical History hypertension Medical History type II diabetes Medical History Covid 11 May 2020 Surgical History T &A Hospitalization History See Above Hospitalization History [facility] nose bleed, high blood pressure 3-2022 [facility] Other 01-19-2021 History general Narrative - Reported* Type Description Date Medical History BPH Medical History kidney disease Medical History COPD Medical History hypertension Medical History type II diabetes Medical History Covid 11 May 2020 Surgical History T &A Hospitalization History See Above Hospitalization History [facility] nose b leed, high blood pressure 3-2022 [facility] Other 01-19-2021 History general Narrative - Reported* Type Description Date Medical History BPH Medical History kidney disease Medical History COPD Medical History hypertension Medical History type II diabetes Medical History Covid 11 May 2020 Surgical History T &A Surgical History RIGHT KIDNEY BIOPSY DUE TO MASS Hospitalization History See Above Hospitalization History [facility] nose b leed, high blood pressure 3-2022 [facility] Other Evaluation + Plan note Future Appointments Appointment Date:01/08/2023 09:45:00 AM Scheduled Provider:Christophe WINN MD Location:[facility] Appointment Type:URO Office Visit Diagnostic Tests Pending * PSA Screen, Total 12/18/22 [facility] evaluation noteNo InformationNort [facility] Other Evaluation note* Diagnosis Screening for genitourinary condition Screening for other and unspecified genitourinary condition documented in this encounter [facility] Diagnosis Renal mass, right- Primary Unspecified disorder of kidney and ureter Renal mass Unspecified disorder of kidney and ureter [facility] this encounter [facility] Diagnosis Renal mass- Primary Unspecified disorder of kidney and ureter Type 2 diabetes mellitus with stage 3 chronic kidney disease, unspecified whether care home insulin use, unspecified whether stage 3a or 3b CKD (HCC) Stage 3b chronic kidney disease (HCC) documented in this encounter [facility] note* Diagnosis Screening for genitourinary condition Screening for other and unspecified genitourinary condition documented in this encounter [facility] note* Diagnosis Renal mass- Primary Unspecified disorder of kidney and ureter Type 2 diabetes mellitus with stage 3 chronic kidney disease, unspecified whether care home insulin use, unspecified whether stage 3a or 3b CKD (HCC) Stage 3b chronic kidney disease (HCC) [facility] Diagnosis Onset Date Resolution Status Type 2 diabetes mellitus with hyperglycemia acute [facility] Work Phone: Evaluation note* Diagnosis Renal mass Unspecified disorder of kidney and ureter [facility] Diagnosis Screening for genitourinary condition Screening for other and unspecified genitourinary condition [facility] Diagnosis Onset Date Resolution Status Type 2 diabetes mellitus with hyperglycemia acute CKD (chronic kidney disease) stage 4, GFR 15-29 ml/min acute Hyperlipidemia acute [id number] acute Hyperuricemia acute Renal mass, right acute Secondary hyperparathyroidism acute Type 2 diabetes mellitus wit h diabetic chronic kidney disease acute BMI 27.0-27.9,adult acute Foot deformity acute Hyperlipidemia acute Hypertension acute Type 2 diabetes mellitus wit h diabetic chronic kidney disease acute Type 2 diabetes mellitus with hyperglycemia acute Vitamin D deficiency acute 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, unspecified whether stage 3a or 3b CKD (HCC) Stage 3b chronic kidney disease (HCC) [facility] Diagnosis Onset Date Resolution Status Type 2 diabetes mellitus with hyperglycemia acute CKD (chronic kidney disease) stage 4, GFR 15-29 ml/min acute Hyperlipidemia acute [id number] acute Hyperuricemia acute Renal mass, right acute Secondary hyperparathyroidism acute Type 2 diabetes mellitus wit h diabetic chronic kidney disease acute BMI 27.0-27.9,adult acute Foot deformity acute Hyperlipidemia acute Hypertension acute Type 2 diabetes mellitus wit h diabetic chronic kidney disease acute Type 2 diabetes mellitus with hyperglycemia acute Vitamin D deficiency acute Type 2 diabetes mellitus with hyperglycemia acute [facility] Work Phone: Evaluation note* Diagnosis Screening for genitourinary condition Screening for other and unspecified genitourinary condition documented in this encounter [facility] course Narrative No data available for this section [facility] progress note No data available for this section [facility] reason for referral (narrative)* Diagnostic Procedure Only (Routine) - Authorized Specialty Diagnoses / Procedures Referred By Contac t Referred To Contact US IMAGING Diagnoses Renal mass Procedures US KIDNEY/BLADDER US RETROPERITONEAL REAL TIME W/IMAGE COMPLETE Jose Daniel Renee MD [address] [place] [address] Us Imaging [id number] Referral ID Status Reason Start Date Expiration Date Visits Requested Visits Authorized [id number] Authorized Auto-Generat ed Referral 04/18/2024 1 1 [facility] for referral (narrative)* Diagnostic Procedure Only (Routine) - Closed Specialty Diagnoses / Procedures Referred By Contac t Referred To Contact US IMAGING Diagnoses Renal mass Procedures US KIDNEY/BLADDER US RETROPERITONEAL REAL TIME W/IMAGE COMPLETE Jose Daniel Renee MD [address] [place] [address] Us Imaging [place] [address] Referral ID Status Reason Start Date Expiration Date V isits Requested Visits Authorized [id number] Closed Auto-Generate d Referral 03/20/2023 04/18/2024 1 1 [facility] for visit Narrative* Diagnostic Procedure Only (Routine) - Closed Specialty Diagnoses / Procedures Referred By Contac t Referred To Contact US IMAGING Diagnoses Renal mass Procedures US KIDNEY/BLADDER US RETROPERITONEAL REAL TIME W/IMAGE COMPLETE Jose Daniel Renee MD [address] [place] [id number] [place] [address] Referral ID Status Reason Start Date Expiration Date V isits Requested Visits Authorized [id number] Closed Auto-Generate d Referral 03/20/2023 04/18/2024 1 1 [facility] Advance Directives No Advanced Directives Records FoundLatest Code Status on File Code Status Date Activated Date Inactivated Comments Full Code 04/24/2020 1:10 AM 05/05/2020 9:00 PM Latest Code Status on File Code Status Date Activated Date Inactivated Comments Full Code 04/24/2020 1:10 AM Advance Directive Response Recorded Date/ Time Advance Directives No February 26, 2020 10:56am Advance Directive Response Recorded Date/ Time Advance Directives No February 26, 2020 11:56am Summary Purpose Family History No Family History Records Found Relationship Condition Age at Onset Recorded Date/T chacho brother Unknown Motor vehicle accident Unknown father Unknown Sepsis Unknown Not Specified Unknown Malignant neoplasm Unknown Hospital Course * Alec Collazo MD - 05/05/2020 3:08 PM EST IN-PATIENT SERVICE [facility] Internal Medicine Discharge Summary Patient ID: Jourdan Arevalo : 1945 ACCOUNT: [id number] Patient's PCP: Dulce Maria Del Castillo MD Admit Date: 04/23/2020 Discharge Date: 05/05/2020 Length of Stay: 12 Code Status: Full Code Admitting Physician: Kip Gil MD Discharge Physician: Alec Collazo MD Active Discharge Diagnoses: Primary Problem Pneumonia due to COVID-19 virus Hospital Problems Active Hospital Problems Diagnosis Date Noted Oral thrush [B37.0] 05/04/2020 NAOMIE (acute kidney injury) ([facility]) [N17.9] 04/24/2020 COPD (chronic obstructive pulmonary disease) ([facility]) [J44.9] 04/24/2020 DM (diabetes mellitus) ([facility]) [E11.9] 04/24/2020 Pneumonia due to COVID-19 virus [U07.1, J12.82] 04/23/2020 Admission Condition: Poor Discharged Condition: fair Hospital Stay: Hospital Course: Jourdan Arevalo is a 74 y.o. male who was admitted for the management of Pneumonia due to COVID-19 virus , presented to ER with Positive For Covid-19 Patient past medical hypertension, diabetes, CKD admitted with cough, fatigue, shortness of breath found positive for COVID-19 pneumonia. Patient treated with Decadron, his oxygen requirement goes down eventually, evaluated by asphalt layer, bar tacker. Patient getting discharged home He was requiring very high dose of Lantus, because of Decadron. At the time of discharge, he is going home on Metformin, Glucotrol, patient completed his Decadron, today was the last dose of Decadron, going home on sliding scale, sliding scale. Patient was informed that his blood sugar may go low he need to check his blood sugar 3-4 times a day. He need to follow-up with his PCP as outpatient He voiced understanding Last HbA1c was 7.2. Significant therapeutic interventions: Significant Diagnostic Studies: Labs / Micro: , Radiology: Ct Chest Wo Contrast Result Date: 04/25/2020 EXAMINATION: CT OF THE CHEST WITHOUT CONTRAST 04/25/2020 9:45 pm TECHNIQUE: CT of the chest was performed without the administration of intravenous contrast. Multiplanar reformatted images are providedfor review. Dose modulation, iterative reconstruction, and/or weight based adjustment of the mA/kV was utilized to reduce the radiation dose to as low as reasonably achievable. COMPARISON: None. HISTORY: ORDERING SYSTEM PROVIDED HISTORY: look for covid pneumonia or for consolidation Left lower lobeTECHNOLOGIST PROVIDED HISTORY: look for covid pneumonia or for consolidation Left lower lobe Reasonfor Exam: look for covid pneumonia or for consolidation Left lower lobe Acuity: Unknown Type of Exam: Unknown FINDINGS: Mediastinum: No gross mediastinal lymphadenopathy. No pericardial effusion. Heart size within normal limits. Trachea and esophagus are unremarkable. Thoracic aorta normal in caliber. Lungs/pleura: Severe upper lung zone predominant emphysematous changes. Patchy ground-glass opacities in the lower lung zones. No focal consolidation. Upper Abdomen: indeterminate hepatic hypodensities are present Soft Tissues/Bones: No acute findings. Severe emphysema. Patchy ground-glass opacities in the lower lung zones may represent COVID-19 infection Indeterminate hepatic hypodensities. RECOMMENDATIONS: CT abdomen with contrast when clinicallyappropriate. Xr Chest Portable Result Date: 05/03/2020 EXAMINATION: ONE XRAY VIEW OF THE CHEST 05/03/2020 6:07 am COMPARISON: April 30, 2020, chest exam HISTORY: ORDERING SYSTEM PROVIDED HISTORY: Acute respiratory failure TECHNOLOGIST PROVIDED HISTORY: Acute respiratory failure Reason for Exam: Acute respiratory failure Acuity: Acute Type of Exam: Subsequent/Follow-up Additional signs and symptoms: Acute respiratory failure FINDINGS: Stable cardiac silhouette Interval improvement in now mild bilateral asymmetric, left greater than right, peripherallung infiltrates No significant pleural process Interval improvement in now mild bilateral asymmetric peripheral infiltrates,. Findings are consistent with resolving pneumonia Xr Chest Portable Result Date: 04/30/2020 EXAMINATION: ONE XRAY VIEW OF THE CHEST 04/30/2020 5:40 am COMPARISON: 04/27/2020 and prior HISTORY: ORDERING SYSTEM PROVIDED HISTORY: COVID-19 pneumonia TECHNOLOGIST PROVIDED HISTORY: COVID-19 pneumonia Reason for Exam: COVID-19 pneumonia Acuity: Unknown Type of Exam: Unknown Additional signs and symptoms: COVID-19 pneumonia Relevant Medical/Surgical History: COVID-19 pneumonia FINDINGS: Study is limited secondary to overlying support and monitoring apparatus. Heart size appears stable. Ground-glass and interstitial opacities with more focal consolidation in the left mid lung zone peripherallyand the left lung base are similar in distribution and progressed from the comparison study. Portions of the right lung base are excluded from the field view of the study. Mild diffuse increased ground-glass and interstitial opacity in the mid and lower lung zone on the right appears similar to theprior study. Osseous structures are unremarkable. No new lines or tubes are identified. Slight progression of multifocal airspace disease, left greater than right, compared to prior study. Xr Chest Portable Result Date: 04/27/2020 EXAMINATION: ONE XRAY VIEW OF THE CHEST 04/27/2020 6:45 am COMPARISON: April 23, 2020, chest exam HISTORY: ORDERING SYSTEM PROVIDED HISTORY: COVID-19 pneumonia TECHNOLOGIST PROVIDED HISTORY: COVID-19 pneumonia Reason for Exam: cough, congestion, hx. of Covid-19 Acuity: Acute Type of Exam: Subsequent/Follow-up FINDINGS: Stable cardiac silhouette Interval progression in asymmetric, left greater thanright, ground-glass infiltrates predominating in the perihilar and lung bases No definite pleural process Progression in bilateral ground-glass infiltrates, findings consistent with progression in multifocal pneumonia Xr Chest Portable Result Date: 04/23/2020 EXAMINATION: ONE XRAY VIEW OF THE CHEST 04/23/2020 10:39 pm COMPARISON: 04/15/2012 HISTORY: ORDERING SYSTEM PROVIDED HISTORY: shortness of breath hypoxia covid positive TECHNOLOGIST PROVIDED HISTORY: shortness of breath hypoxia covid positive Reason for Exam: shortness of breath, history of covid 19 and COPD Acuity: Unknown Type of Exam: Unknown FINDINGS: The patient is rotated to the left on this portable study. There is ill-defined airspace disease in the lateral left lower lung and at both lung bases. There is no pneumothorax or pleural fluid. The heart size is within normal limits. No acutebone finding. Ill-defined lateral left lung and bibasilar airspace disease suspicious for multifocal pneumonia, likely an atypical or viral pneumonia. Consultations: Consults: Final Specialist Recommendations/Findings: IP CONSULT TO INFECTIOUS DISEASES IP CONSULT TO PULMONOLOGY IP CONSULT TO NEPHROLOGY IP CONSULT TO PHARMACY The patient was seen and examined on day of discharge and this discharge summary is in conjunction with any daily progress note from day of discharge. Discharge plan: Disposition: Home Physician Follow Up: Johnny Mi MD [address] [facility] [phone] In 4 weeks call to make appointment for 4 weeks after discharge Dulce Maria Del Castillo MD [address] [facility] [address] In 2 weeks [employer] [address] [place] [address] [phone] Call them when you get home so they can deliver the rest of your Oxygen Equipment. Requiring Further Evaluation/Follow Up POST HOSPITALIZATION/Incidental Findings: Diet: cardiac diet Activity: As tolerated Instructions to Patient: Discharge Medications: Medication List START taking these medications albuterol-ipratropium 20-100 MCG/ACT Aers inhaler Commonly known as: COMBIVENT RESPIMAT Inhale 1 puff into the lungs 4 times daily benzonatate 200 MG capsule Commonly known as: TESSALON Take 1 capsule by mouth 3 times daily as needed for Cough budesonide-formoterol 160-4.5 MCG/ACT Aero Commonly known as: SYMBICORT Inhale 2 puffs into the lungs 2 times daily dextromethorphan 30 MG/5ML extended release liquid Commonly known as: DELSYM Take 10 mLs by mouth every 12 hours as needed for Cough insulin glargine 100 UNIT/ML injection vial Commonly known as: LANTUS Inject 20 Units into the skin nightly insulin lispro 100 UNIT/ML injection vial Commonly known as: HumaLOG Inject 1 Units into the skin 3 times daily (before meals) 151-200-----3 units 201-250-----5 units 251-300-----8 301-350-----12 351-400-----15 nystatin [id number] UNIT/ML suspension Commonly known as: MYCOSTATIN Take 5 mLs by mouth 4 times daily for 10 days CONTINUE taking these medications amLODIPine 10 MG tablet Commonly known as: NORVASC aspirin 81 MG chewable tablet atorvastatin 10 MG tablet Commonly known as: LIPITOR doxazosin 2 MG tablet Commonly known as: CARDURA glipiZIDE 10 MG tablet Commonly known as: GLUCOTROL lisinopril 20 MG tablet Commonly known as: PRINIVIL;ZESTRIL metFORMIN 1000 MG tablet Commonly known as: GLUCOPHAGE montelukast 10 MG tablet Commonly known as: SINGULAIR pravastatin 20 MG tablet Commonly known as: PRAVACHOL STOP taking these medications hydroCHLOROthiazide 25 MG tablet Commonly known as: HYDRODIURIL MELOXICAM ASK your doctor about these medications tamsulosin 0.4 MG capsule Commonly known as: FLOMAX Where to Get Your Medications These medications were sent to [address] - [phone] - F [phone] [place] [id number] insulin glargine 100 UNIT/ML injection vial You can get these medications from any pharmacy Bring a paper prescription for each of these medications albuterol-ipratropium 20-100 MCG/ACT Aers inhaler benzonatate 200 MG capsule budesonide-formoterol 160-4.5 MCG/ACT Aero dextromethorphan 30 MG/5ML extended release liquid insulin lispro 100 UNIT/ML injection vial nystatin [id number] UNIT/ML suspension Time Spent on discharge is 35 mins in patient examination, evaluation, counseling as well as medication reconciliation, prescriptions for required medications, discharge plan and follow up. Electronically signed by Alec Collazo MD 05/05/2020 3:[address] Dulce Maria Del Castillo MD for the opportunity to be involved in this patient's care. documented in this encounter Discharge Instructions * Discharge Instr - Activity* Eli Webster RN - 05/05/2020 3:57 PM EST Activity as tolerated. Monitor oxygen levels * Discharge Instr - Diet* Eli Webster RN - 05/05/2020 4:40 PM EST ? Good nutrition is important when healing from an illness, injury, or surgery. Follow any nutrition recommendations given to you during your hospital stay. ? If you were given an oral nutrition supplement while in the hospital, continue to take this supplement at home. You can take it with meals, in-between meals, and/or before bedtime. These supplements can be purchased at most local grocery stores, pharmacies, and [employer]. ? If you have any questions about your diet or nutrition, call the hospital and ask for the dietitian. * Discharge Instr - LUCIEN* Eli Webster RN - 04/27/2020 3:43 PM EST Continuity of Care Form Patient Name: Jourdan Arevalo : 1945 Admit date: 04/23/2020 Discharge date: 05/05/20 Code Status Order: Full Code Advance Directives: Advance Care Flowsheet Documentation Date/Time Healthcare Directive Type of Healthcare Directive Copy in Chart Healthcare Agent Appointed Healthcare Agent's Name Healthcare Agent's Phone Number 04/27/20 [phone] No, patient does not have an advance directive for healthcare treatment -- -- -- -- -- 04/24/20 0132 No, patient does not have an advance directive for healthcare treatment -- -- -- -- -- Admitting Physician: Kip Gil MD PCP: Dulce Maria Del Castillo MD Discharging Nurse: [facility] Hospital Unit/Room#: Discharging Unit Emergency Contact: Extended Emergency Contact Information Primary Emergency Contact: Manuel Arevalo Relation: Child Secondary Emergency Contact: ArevaloSharon vasquez Relation: Spouse Past Surgical History: History reviewed. No pertinent surgical history. Immunization History: There is no immunization history on file for this patient. Active Problems: Patient Active Problem List Diagnosis Code Pneumonia due to COVID-19 virus U07.1, J12.82 NAOMIE (acute kidney injury) ([facility]) N17.9 HTN (hypertension) I10 COPD (chronic obstructive pulmonary disease) ([facility]) J44.9 DM (diabetes mellitus) ([facility]) E11.9 Hyperlipidemia E78.5 BPH (benign prostatic hyperplasia) N40.0 Isolation/Infection: Isolation Droplet Plus Patient Infection Status Infection Onset Added Last Indicated Last Indicated By Review Planned Expiration Resolved Resolved By COVID-19 04/20/20 04/25/20 04/20/20 COVID-19 04/30/20 05/04/20 From ODRS Nurse Assessment: Last Vital Signs: BP (!) 156/81 Pulse 66 Temp 98.4 F (36.9 C) (Oral) Resp 26 Ht 5' 8 (1.727 m) Wt 194 lb (88 kg) SpO2 (!) 89% BMI 29.50 kg/m Last documented pain score (0-10 scale): Pain Level: 0 Last Weight: Wt Readings from Last 1 Encounters: 04/26/20 194 lb (88 kg) Mental Status: oriented IV Access: - None Nursing Mobility/ADLs: Walking Assisted Transfer Assisted Bathing Assisted Dressing Assisted Toileting Assisted Feeding Independent Music Leader Assisted Med Delivery whole Wound Care Documentation and Therapy: Elimination: Continence: Bowel: Yes Bladder: No Urinary Catheter: None Colostomy/Ileostomy/Ileal Conduit: No Date of Last BM: 04/28/20 Intake/Output Summary (Last 24 hours) at 04/27/2020 1542 Last data filed at 04/27/2020 1222 Gross per 24 hour Intake Output 1876 ml Net -1876 ml I/O last 3 completed shifts: In: - Out: 1875 [Urine:1875; Stool:1] Safety Concerns: None Impairments/Disabilities: None Nutrition Therapy: Current Nutrition Therapy: - Oral Diet: Carb Control 4 carbs/meal (1800kcals/day) Routes of Feeding: Oral Liquids: Thin Liquids Daily Fluid Restriction: no Last Modified Barium Swallow with Video (Video Swallowing Test): not done Treatments at the Time of Hospital Discharge: Respiratory Treatments: inhalers Oxygen Therapy: 3L at rest, 4L with activity Ventilator: - No ventilator support Rehab Therapies: Physical Therapy and Occupational Therapy Weight Bearing Status/Restrictions: No weight bearing restirctions Other Medical Equipment (for information only, NOT a DME order): walker Other Treatments: Assisted assessment and monitoring, Medication Education. Pt. Is new to Oxygen, will need good instruction & following. Need instruction/teaching on Insulin injections. CBC/BMP IN ONE WEEK, RESULTS TO DR. BROWN. Patient's personal belongings (please select all that are sent with patient): Dentures upper, glasses RN SIGNATURE: CASE MANAGEMENT/SOCIAL WORK SECTION Inpatient Status Date: 04/26/20 Readmission Risk Assessment Score: Readmission Risk Risk of Unplanned Readmission: 20 Discharging to Facility/ Agency [facility] Fax Dialysis Facility (if applicable) Name: Address: Dialysis Schedule: Phone: Fax: [place]yer/Substation Operator Chief signature: . ICIAN SECTION Prognosis: Good Condition at Discharge: Stable Rehab Potential (if transferring to Rehab): Good Recommended Labs or Other Treatments After Discharge: BMP/CBC in one week, Results to Dr. Brown. Physician Certification: I certify the above information and transfer of Jourdan Arevalo is necessary for the continuing treatment of the diagnosis listed and that he requires LTAC for less 30 days. Update Admission H&P: No change in H&P PHYSICIAN SIGNATURE: * Attachments The following attachments cannot be sent through Care Everywhere. * Coronavirus Disease (COVID-19): Hospital Discharge ([place]an) * insulin lispro ([place]an) * dextromethorphan and guaifenesin ([place]) * benzonatate ([place]) * albuterol and ipratropium (inhalation) ([place]) * nystatin (oral) ([place]) * Oxygen Therapy ([place]an) documented in this encounter History of Present Illness * Eli Webster RN - 05/05/2020 5:45 PM EST Patient discharged, transported to [facility] by wheelchair with home oxygen. O2 already being delivered to patient son lucy. Discharged instructions reviewed and questions answered. Patient gave himself his dinner insulin shot. VNS to see tomorrow. Meds to beds delivered and sent with patient. * Rafael Ca - 05/05/2020 4:41 PM EST CLINICAL PHARMACY NOTE: MEDS TO BEDS [facility] Patient?: No Total # of Prescriptions Filled: 6 The following medications were delivered to the patient: Benzonatate Combivent Symbicort Nystatin Insulin lispro BD ins syr Total # of Interventions Completed: 0 Time Spent (min): 30 Additional Documentation: * Guanakito Baum MD - 05/05/2020 4:29 PM EST [facility] - Infectious diseases evaluation admission date 04/23/2020 reason for consultation: COVID Impression : Current: COVID 19 with possible superimposed bacterial infection Sepsis Acute kidney injury Leukocytosis possible steroid related COPD Diabetes mellitus Recommendations Ceftriaxone 6 days course completed 04/28/2020 Remdesivir 5 days course completed 04/29/2020 Patient refused convalescent plasma Decadron last dose today Supportive care No objection for discharge Follow CBC in 1 week Home oxygen Infection Control Recommendations Droplet Plus Precautions History of Present Illness: Initial history: Jourdan Arevalo is a 74 y.o.-year-old male presented to ED for low grade fever, SOB taht worsens with exertion. Denies chest pain, nausea, vomiting, diarrhea, loss of taste/smell. Pt has history of COPD, hypertension and diabetes. Interval changes 05/05/2020 The patient remains on 2L oxygen per nasal cannula, no reported fever WBC 28.3 Sodium 123 Sputum cultures 05/02/2020 grew Gege albicans Patient Vitals for the past 8 hrs: BP Pulse Resp SpO2 05/05/20 1600 76 19 (!) 88 % 05/05/20 1513 92 % 05/05/20 1500 72 17 91 % 05/05/20 1400 73 18 92 % 05/05/20 1300 70 15 93 % 05/05/20 1200 (!) 152/96 70 21 90 % 05/05/20 1153 19 91 % 05/05/20 1100 (!) 167/74 67 14 91 % 05/05/20 1000 83 20 (!) 86 % 05/05/20 0900 (!) 147/64 67 14 (!) 89 % 05/05/20 0835 14 91 % I have personally reviewed the past medical history, past surgical history, medications, social history, and family history, and I haveupdated the database accordingly. Allergies: Patient has no known allergies. Review of Systems: Review of Systems HENT: Negative. Eyes: Negative. Respiratory: Positive for cough and shortness of breath. Cardiovascular: Negative. Negative for chest pain. Gastrointestinal: Negative. Genitourinary: Negative. Musculoskeletal: Negative. Skin: Negative. Physical Examination : Remainder of examination deferred due to excessive risk conferred by physical examination during a global pandemic due to coronavirus 19. In a setting where local and national supplies of personal protective equipment are depleted Past Medical History: Past Medical History: Diagnosis Date Arthritis Chronic kidney disease Stage III kidney disease COPD (chronic obstructive pulmonary disease) (HCC) Diabetes mellitus (HCC) Hyperlipidemia Hypertension Past Surgical History: History reviewed. No pertinent surgical history. Medications: nystatin 5 mL Oral 4x Daily urea 15 g Oral Daily insulin glargine 20 Units Subcutaneous BID insulin lispro 0-18 Units Subcutaneous TID WC insulin lispro 0-9 Units Subcutaneous Nightly budesonide-formoterol 2 puff Inhalation BID senna 1 tablet Oral BID atenolol 50 mg Oral Daily sodium chloride flush 10 mL Intravenous 2 times per day heparin (porcine) 5,000 Units Subcutaneous 3 times per day dexamethasone 6 mg Oral Daily aspirin 81 mg Oral Daily albuterol sulfate HFA 2 puff Inhalation 4x daily And ipratropium 2 puff Inhalation 4x daily montelukast 10 mg Oral Daily tamsulosin 0.4 mg Oral Daily atorvastatin 10 mg Oral Daily amLODIPine 10 mg Oral Daily Social History: Social History Socioeconomic History Marital status: Spouse name: Not on file Number of children: Not on file Years of education: Not on file Highest education level: Not on file Occupational History Not on file Social Needs Financial resource strain: Not on file Food insecurity Worry: Not on file Inability: Not on file Transportation needs Medical: Not on file Non-medical: Not on file Tobacco Use Smoking status: Never Smoker Smokeless tobacco: Never Used Substance and Sexual Activity Alcohol use: No Drug use: No Sexual activity: Not on file Lifestyle Physical activity Days per week: Not on file Minutes per session: Not on file Stress: Not on file Relationships Social connections Talks on phone: Not on file Gets together: Not on file Attends jew service: Not on file Active member of club or organization: Not on file Attends meetings of clubs or organizations: Not on file Relationship status: Not on file Intimate partner violence Fear of current or ex partner: Not on file Emotionally abused: Not on file Physically abused: Not on file Forced sexual activity: Not on file Other Topics Concern Not on file Social History Narrative Not on file Family History: History reviewed. No pertinent family history. Medical Decision Making: I have independently reviewed/ordered the following labs: CBC with Differential: Recent Labs 05/04/20 0513 05/05/20 0508 WBC 25.6* 28.3* HGB 13.6 13.8 HCT 41.0 41.4 PLT 380 421 BMP: Recent Labs 05/04/20 0513 05/04/20 0513 05/05/20 0508 05/05/20 1218 NA 125* < > 125* 128* K 4.8 -- 4.5 4.5 CL 94* -- 96* 93* CO2 21 -- BUN 46* -- 56* -- CREATININE 1.68* -- 1.48* -- MG 2.3 -- 2.2 -- < > = values in this interval not displayed. Hepatic Function Panel: No results for input(s): PROT, LABALBU, BILIDIR, IBILI, BILITOT, ALKPHOS, ALT, AST in the last 72 hours. No results for input(s): RPR in the last 72 hours. No results for input(s): HIV in the last 72 hours. No results for input(s): BC in the last 72 hours. Lab Results Component Value Date CREATININE 1.48 05/05/2020 GLUCOSE 240 05/05/2020 Detailed results: Thank you for allowing us to participate in the care of this patient.Please call with questions. This note is created with the assistance of a speech recognition program. While intending to generate adocument that actually reflects the content of the visit, the document can still have some errors including those of syntax and sound a like substitutions which may escape proof reading. It such instances, actual meaningcan be extrapolated by contextual diversion. Guanakito Baum MD Office: Perfect [facility] / office [phone] Yuli Rockwell OTA - 05/05/2020 3:55 PM EST [facility] INPATIENT OCCUPATIONAL THERAPY PROGRESS NOTE Date: 05/05/2020 Patient Name: Jourdan Arevalo Room: : 1945 (74 y.o.) Gender: male Discharge Recommendations: Further Occupational Therapy is recommended upon facility discharge. Referring Practitioner: ANA Spencer CNP Diagnosis: Pneumonia due to COVID-19 virus General Chart Reviewed: Yes, Orders, Progress Notes, History and Physical Patient assessed for rehabilitation services?: Yes Family / Caregiver Present: No Referring Practitioner: ANA Spencer CNP Diagnosis: Pneumonia due to COVID-19 virus Restrictions Restrictions/Precautions: Fall Risk(Covid(+), high flow) Required Braces or Orthoses?: No Subjective Subjective: I'm more in shape than my kids. Comments: pt alert and cooperative. Home today. Educated as able for task tolerance, conditioning and pacinf. Patient Currently in Pain: Denies Overall Orientation Status: Within Functional Limits Objective Cognition Overall Cognitive Status: WFL Objective Functional Mobility Functional Mobility Comments: review on mobility with oxygen tubing/safety and fall prevention. Encouraged pulse ox to remain on patient/ reviewed transport options. ADL Feeding: Setup Grooming: Setup UE Bathing: Setup LE Bathing: Setup UE Dressing: Setup LE Dressing: Setup Toileting: Setup Additional Comments: Insert hearing aids with verbal cuing. Review of pacing and energy conservation stratieges, attention to oxygen tubing, assessing oxygen during active engagement, Adaptive equipment and positioning stategies for LBD tasks. Handouts for all for carryover. Pt appears receptive. Instrumental ADL's Instrumental ADLs: Yes Communication: using phone in poor positioning due to difficulty hearing. Regional Manager attempted to reposition appropriately, verified speak works. Regional Manager assisted pt with documenting personal info obtained over the phone from his son and reviewed proper positioning, pt adamant to use his preferred technique. Tub Transfers Tub Transfers Comments: Encouraging bathing from seated position for improved task tolerance, has chair available per patient. Type of ROM/Therapeutic Exercise Comment: BUE Endurance and strength building HEP. AROM focus. Encouraging 5- 20reps to tolerance, progressing as appropriate. Monitoring O2 levels throghout, use of restbreaks for recovery. G vebalized understanding. Additional Activities: Pulse ox use/managing oxygen saturations, appropriate responses when experiencing desaturations. Able to ID 88% pulmonary limit with no cuing Required cuing to recall seated/recovery positions (~2min later) if experiencing desat. Encouraged to review handout for further carryover. Assessment Performance deficits / Impairments: Decreased functional mobility ;Decreased ADL status;Decreased strength;Decreased safe awareness;Decreased cognition;Decreased endurance;Decreased balance;Decreasedhigh-level IADLs Assessment: home today on oxygen Prognosis: Good Discharge Recommendations: Patient would benefit from continued therapy after discharge Activity Tolerance: Patient Tolerated treatment well;Treatment limited secondary to medical complications (free text)(oxygen desaturation) Safety Devices in place: Yes Type of devices: Call light within reach;Gait belt;Left in chair Patient Education: Noted above Learner:patient Method: demonstration and explanation Outcome: needs reinforcement Plan Safety Devices Safety Devices in place: Yes Type of devices: Call light within reach, Gait belt, Left in chair Plan Times per week: 2-4 Times per day: Daily Current Treatment Recommendations: Self-Care / ADL, Strengthening, Balance Training, Functional Mobility Training, Endurance Training, Safety Education & Training, Patient/Caregiver Education & Training, Equipment Evaluation, Education, & procurement, Cognitive Reorientation, Cognitive/Perceptual Training Goals Short term goals Time Frame for Short term goals: By discharge Short term goal 1: Pt will verbalize/demonstrate Good understanding of breathing techniques for increased independence with self-care and mobility. Short term goal 2: Pt will verbalize/demonstrate Good understanding of energy conservation/work simplification strategies for increased independence and safety with self-care and functional mobility. Short term goal 3: Pt will perform BADLs with stand by assist and Good pacing while maintaining oxygen satuation greater than 90%. Short term goal 4: Pt will perform functional mobility and transfers during self-care with stand byassist while maintaining oxygen saturation greater than 90%. Short term goal 5: Pt will actively participate in 15-20 minutes of therapeutic exercise/functionalactivities to promote increased independence with self-care and mobility. OT Individual Minutes Time In: 1410 Time Out: 1450 Minutes: 40 * Eli Webster RN - 05/05/2020 3:[address] Brown updated on patient status, Na 128 and ok to discharge. Follow up in 3 weeks and do BMP/CBC in one week. * Memo Brown MD - 05/05/2020 12:39 PM EST NEPHROLOGY PROGRESS NOTE Patient : Jourdan Arevalo; 74 y.o. Location: Attending: Kip Gil MD Admit Date: 04/23/2020 Hospital Day: 12 Interval history: Events of the past 24 hours were reviewed with the critical care nursing staff. Patient was not seen by [id number] encounter due to COVID-19 respiratory isolation status. Patient was seen from a distance,Patient is now on nasal cannula oxygen 7 L. He looks comfortable. No acute complains today SNa 125,. He is on a fluid 1500 fluid restriction. History of Present Illness: This is a 74 y.o. male with past medical history of type 2 diabetes, essential hypertension, CKD stage III with baseline creatinine of about 1.8 mg/dL, he follows up with bar tacker in [place], no recent outpatient labs available, his last labs before this hospitalization was in 2011 and his creatinine at that time was 1.8 mg/dL. She admitted with complaints of cough fatigue shortness of breath that started a weeks ago, tested positive for Covid, and admitted for COVID-19 pneumonia Labs showed serum creatinine of 2.3 mg/dL on admission and therefore nephrology consultation has been requested Objective: CURRENT TEMPERATURE: Temp: 98 F (36.7 C) MAXIMUM TEMPERATURE OVER 24HRS: Temp (24hrs), Av.9 F (36.6 C), Min:97.5 F (36.4 C), Max:98.2 F (36.8 C) CURRENT RESPIRATORY RATE: Resp: 19 CURRENT PULSE: Pulse: 83 CURRENT BLOOD PRESSURE: BP: (!) 147/64 24HR BLOOD PRESSURE RANGE: Systolic (24hrs), Av , Min:124 , Max:182 ; Diastolic (24hrs), Av, Min:54, Max:134 24HR INTAKE/OUTPUT: Intake/Output Summary (Last 24 hours) at 05/05/2020 1239 Last data filed at 05/05/2020 0400 Gross per 24 hour Intake 460 ml Output 1575 ml Net -1115 ml Patient Vitals for the past 96 hrs (Last 3 readings): Weight 05/05/20 0400 184 lb 8.4 oz (83.7 kg) 05/04/20 0034 193 lb 9 oz (87.8 kg) 05/03/20 0600 188 lb (85.3 kg) Physical Exam: Remainder of the examExcessive risk deferred due to excessive risk conferred by bedside physical exam during a global SARS Cov 2/COVID 19 pandemic, in a setting where local and national supplies of personal protective equipment are depleted. Labs: CBC: Recent Labs 05/03/2043205/04/2051205/05/20 0508 WBC 27.3* 25.6* 28.3* RBC 4.88 4.86 4.91 HGB 13.8 13.6 13.8 HCT 41.1 41.0 41.4 MCV 84.3 84.3 84.3 MCH 28.3 27.9 28.1 MCHC 33.6 33.2 33.3 RDW 13.2 13.0 13.0 PLT 373 380 421 MPV 8.9 8.3 8.5 BMP: Recent Labs 05/03/2043205/04/2051205/04/20 1559 05/05/20 0508 NA 130* 125* 122* 125* K 4.8 4.8 -- 4.5 CL 98 94* -- 96* CO2 - BUN 48* 46* -- 56* CREATININE 1.43* 1.68* -- 1.48* GLUCOSE 219* 271* -- 240* CALCIUM 8.3* 8.5* -- 8.7 Magnesium: Recent Labs 05/03/2043205/04/20 0505/05/20 0508 MG 2.4 2.3 2.2 Radiology: Chest x-ray Ill-defined lateral left lung and bibasilar airspace disease suspicious for multifocal pneumonia, likely an atypical or viral pneumonia. Assessment/plan: 1. Acute kidney injury superimposed on chronic kidney disease stage III [baseline serum creatinine 1.8 mg/dL] - most consistent with prerenal azotemia. Renal function is stable and patient is on furosemide 20 mg daily to maintain slight negative fluid balance.. Monitor urine output closely. Basic metabolic profile daily. 2. Hyponatremia -usually secondary to HCTZ/Lasxi on admission and possibly underlying SIADH 2nd to COVID-19 Pneumonia - urine sodium 24, urin 600, Serum sodium 125mmol/L. Optimize glycemic control. On urea sodium 15 g daily x3 days to excrete free water Recheck sodium 3. COVID-19 pneumonia - On dexamethasone. 4. Systemic hypertension - Continue current BP medications. Plan DC Lasix due to Hyponatremia IVF normal saline 50 ml/hr Recheck SNa, if Na is 128 or above no objections on discharge. Prognosis is guarded. Eli Castillo RN - 05/05/2020 11:[address] Brown updated on patient status. Labs, vitals and orders reviewed. Recheck electrolytes at 1200. If Na 128 or greater, then ok to discharge home. Do Not send home on lasix. Start NS at 50mL/hr Juan Angeles RN - 05/05/2020 7:27 AM EST Regional Manager updated patient's on his current condition, plan of care, and decrease in oxygen use. All questions and concerns were addressed. Juan Leonardo RN - 05/04/2020 10:40 PM EST Patient tolerating 4L NC well with O2 saturations in low 90's%. Decreased NC to 3L.Will continue tomonitor. * Guanakito Baum MD - 05/04/2020 9:58 PM EST [facility] - Infectious diseases evaluation admission date 04/23/2020 reason for consultation: COVID Impression : Current: COVID 19 with possible superimposed bacterial infection Sepsis Acute kidney injury Leukocytosis possible steroid related COPD Diabetes mellitus Recommendations Ceftriaxone 6 days course completed 04/28/2020 Remdesivir 5 days course completed 04/29/2020 Monitor off antibiotics Patient refused convalescent plasma Decadron Follow CBC, renal function Supportive care Discussed with nursing staff Infection Control Recommendations Droplet Plus Precautions History of Present Illness: Initial history: Jourdan Arevalo is a 74 y.o.-year-old male presented to ED for low grade fever, SOB taht worsens with exertion. Denies chest pain, nausea, vomiting, diarrhea, loss of taste/smell. Pt has history of COPD, hypertension and diabetes. Interval changes 05/04/2020 The patient oxygen requirements improved on 6 L of oxygen per nasal cannula, no reported fever WBC 25.6 Procalcitonin 0.11, LD 339, ferritin 933, D-dimer 0.63 Sputum cultures 05/02/2020 grew Gege albicans Patient Vitals for the past 8 hrs: BP Temp Temp src Pulse Resp SpO2 05/04/20 2100 (!) 148/54 71 16 (!) 89 % 05/04/201999 (!) 171/134 72 14 90 % 05/04/201956 (!) 160/67 05/04/201954 (!) 160/67 97.5 F (36.4 C) Oral 73 15 90 % 05/04/20 195 16 92 % 05/04/20 1900 (!) 153/74 73 10 90 % 05/04/20 1800 (!) 164/74 70 15 92 % 05/04/20 1700 (!) 145/69 67 21 95 % 05/04/20 1600 (!) 153/62 97.5 F (36.4 C) Oral 71 17 93 % 05/04/20 1521 16 92 % 05/04/20 1500 124/60 73 19 92 % 05/04/20 1400 (!) 149/66 73 17 90 % I have personally reviewed the past medical history, past surgical history, medications, social history, and family history, and I haveupdated the database accordingly. Allergies: Patient has no known allergies. Review of Systems: Review of Systems HENT: Negative. Eyes: Negative. Respiratory: Positive for cough and shortness of breath. Cardiovascular: Negative. Negative for chest pain. Gastrointestinal: Negative. Genitourinary: Negative. Musculoskeletal: Negative. Skin: Negative. Physical Examination : Remainder of examination deferred due to excessive risk conferred by physical examination during a global pandemic due to coronavirus 19. In a setting where local and national supplies of personal protective equipment are depleted Past Medical History: Past Medical History: Diagnosis Date Arthritis Chronic kidney disease Stage III kidney disease COPD (chronic obstructive pulmonary disease) (HCC) Diabetes mellitus (HCC) Hyperlipidemia Hypertension Past Surgical History: History reviewed. No pertinent surgical history. Medications: nystatin 5 mL Oral 4x Daily urea 15 g Oral Daily insulin glargine 20 Units Subcutaneous BID insulin lispro 0-18 Units Subcutaneous TID WC insulin lispro 0-9 Units Subcutaneous Nightly furosemide 20 mg Oral Daily budesonide-formoterol 2 puff Inhalation BID senna 1 tablet Oral BID atenolol 50 mg Oral Daily sodium chloride flush 10 mL Intravenous 2 times per day heparin (porcine) 5,000 Units Subcutaneous 3 times per day dexamethasone 6 mg Oral Daily aspirin 81 mg Oral Daily albuterol sulfate HFA 2 puff Inhalation 4x daily And ipratropium 2 puff Inhalation 4x daily montelukast 10 mg Oral Daily tamsulosin 0.4 mg Oral Daily atorvastatin 10 mg Oral Daily amLODIPine 10 mg Oral Daily Social History: Social History Socioeconomic History Marital status: Spouse name: Not on file Number of children: Not on file Years of education: Not on file Highest education level: Not on file Occupational History Not on file Social Needs Financial resource strain: Not on file Food insecurity Worry: Not on file Inability: Not on file Transportation needs Medical: Not on file Non-medical: Not on file Tobacco Use Smoking status: Never Smoker Smokeless tobacco: Never Used Substance and Sexual Activity Alcohol use: No Drug use: No Sexual activity: Not on file Lifestyle Physical activity Days per week: Not on file Minutes per session: Not on file Stress: Not on file Relationships Social connections Talks on phone: Not on file Gets together: Not on file Attends jew service: Not on file Active member of club or organization: Not on file Attends meetings of clubs or organizations: Not on file Relationship status: Not on file Intimate partner violence Fear of current or ex partner: Not on file Emotionally abused: Not on file Physically abused: Not on file Forced sexual activity: Not on file Other Topics Concern Not on file Social History Narrative Not on file Family History: History reviewed. No pertinent family history. Medical Decision Making: I have independently reviewed/ordered the following labs: CBC with Differential: Recent Labs 05/03/203 05/04/20 0513 WBC 27.3* 25.6* HGB 13.8 13.6 HCT 41.1 41.0 PLT 373 380 BMP: Recent Labs 05/03/203 05/04/20 0513 05/04/20 1559 NA 130* 125* 122* K 4.8 4.8 -- CL 98 94* -- CO2 -- BUN 48* 46* -- CREATININE 1.43* 1.68* -- MG 2.4 2.3 -- Hepatic Function Panel: No results for input(s): PROT, LABALBU, BILIDIR, IBILI, BILITOT, ALKPHOS, ALT, AST in the last 72 hours. No results for input(s): RPR in the last 72 hours. No results for input(s): HIV in the last 72 hours. No results for input(s): BC in the last 72 hours. Lab Results Component Value Date CREATININE 1.68 05/04/2020 GLUCOSE 271 05/04/2020 Detailed results: Thank you for allowing us to participate in the care of this patient.Please call with questions. This note is created with the assistance of a speech recognition program. While intending to generate adocument that actually reflects the content of the visit, the document can still have some errors including those of syntax and sound a like substitutions which may escape proof reading. It such instances, actual meaningcan be extrapolated by contextual diversion. Guanakito Baum MD Office: [facility] / office [phone] * Shazia Tan RN - 05/04/2020 7:16 PM EST Regional Manager updated patient's on his condition, treatment and plan of care. Updated on oxygen use, diet and activity. All questions and concerns addressed. * Alec Collazo MD - 05/04/2020 1:03 PM EST IN-PATIENT SERVICE [facility] Internal Medicine Progress Note 05/04/2020 1:04 PM Name: Jourdan Arevalo Acct: [id number] Room: IP Day: 11 Admit Date: 04/23/2020 9:54 PM PCP: Dulce Maria Del Castillo MD Code Status: Full Code Subjective: C/C: Chief Complaint Patient presents with Positive For Covid-19 Principal Problem: Pneumonia due to COVID-19 virus Active Problems: NAOMIE (acute kidney injury) (HCC) COPD (chronic obstructive pulmonary disease) (HCC) DM (diabetes mellitus) (HCC) Oral thrush Resolved Problems: * No resolved hospital problems. * Interval History Status: improved. Patient with past medical history of hypertension, diabetes, CKD, admitted with cough fatigue, shortness of breath, found to be Covid positive Patient evaluated by bar [facility], has nonoliguric renal failure 05/04 Patient is doing much better Oxygen requirement is going down Patient is eating drinking okay No new complaints Significant last 24 hr data reviewed ; Vitals: 05/04/20 0836 05/04/20 1000 05/04/20 1200 05/04/20 1243 BP: (!) 146/72 138/69 Pulse: 69 65 Resp: 15 16 18 18 Temp: 97.9 F (36.6 C) TempSrc: Oral SpO2: 92% 91% 91% 91% Weight: Height: Recent Results (from the past 24 hour(s)) POC Glucose Fingerstick Collection Time: 05/03/20 4:28 PM Result Value Ref Range POC Glucose 433 (HH) 75 - 110 mg/dL POC Glucose Fingerstick Collection Time: 05/03/20 8:35 PM Result Value Ref Range POC Glucose 429 (HH) 75 - 110 mg/dL CBC Collection Time: 05/04/20 5:13 AM Result Value Ref Range WBC 25.6 (H) 3.5 - 11.0 k/uL RBC 4.86 4.5 - 5.9 m/uL Hemoglobin 13.6 13.5 - 17.5 g/dL Hematocrit 41.0 41 - 53 % MCV 84.3 80 - 100 fL MCH 27.9 26 - 34 pg MCHC 33.2 31 - 37 g/dL RDW 13.0 11.5 - 14.9 % Platelets 380 150 - 450 k/uL MPV 8.3 6.0 - 12.0 fL NRBC Automated NOT REPORTED per 100 WBC BASIC METABOLIC PANEL Collection Time: 05/04/20 5:13 AM Result Value Ref Range Glucose 271 (H) 70 - 99 mg/dL BUN 46 (H) 8 - 23 mg/dL CREATININE 1.68 (H) 0.70 - 1.20 mg/dL Bun/Cre Ratio NOT REPORTED 9 - 20 Calcium 8.5 (L) 8.6 - 10.4 mg/dL Sodium 125 (L) 135 - 144 mmol/L Potassium 4.8 3.7 - 5.3 mmol/L Chloride 94 (L) 98 - 107 mmol/L CO2 21 20 - 31 mmol/L Anion Gap 10 9 - 17 mmol/L GFR Non- 40 (L) >60 mL/min GFR 48 (L) >60 mL/min GFR Comment GFR Staging NOT REPORTED Magnesium Collection Time: 05/04/20 5:13 AM Result Value Ref Range Magnesium 2.3 1.6 - 2.6 mg/dL C-Reactive Protein Collection Time: 05/04/20 5:13 AM Result Value Ref Range CRP 7.2 (H) 0.0 - 5.0 mg/L D-Dimer, Quantitative Collection Time: 05/04/20 5:13 AM Result Value Ref Range D-Dimer, Quant 0.63 (H) 0.00 - 0.59 mg/L FEU Ferritin Collection Time: 05/04/20 5:13 AM Result Value Ref Range Ferritin 933 (H) 30 - 400 ug/L Lactate Dehydrogenase Collection Time: 05/04/20 5:13 AM Result Value Ref Range LD 339 (H) 135 - 225 U/L Procalcitonin Collection Time: 05/04/20 5:13 AM Result Value Ref Range Procalcitonin 0.11 (H) <0.09 ng/mL POC Glucose Fingerstick Collection Time: 05/04/20 11:59 AM Result Value Ref Range POC Glucose 294 (H) 75 - 110 mg/dL Recent Labs 05/03/20 0830 05/03/20 1107 05/03/20 1628 05/03/20 20305/04/20 1159 POCGLU 177* 234* 433* 429* 294* Xr Chest Portable Result Date: 05/03/2020 EXAMINATION: ONE XRAY VIEW OF THE CHEST 05/03/2020 6:07 am COMPARISON: April 30, 2020, chest exam HISTORY: ORDERING SYSTEM PROVIDED HISTORY: Acute respiratory failure TECHNOLOGIST PROVIDED HISTORY: Acute respiratory failure Reason for Exam: Acute respiratory failure Acuity: Acute Type of Exam: Subsequent/Follow-up Additional signs and symptoms: Acute respiratory failure FINDINGS: Stable cardiac silhouette Interval improvement in now mild bilateral asymmetric, left greater than right, peripherallung infiltrates No significant pleural process Interval improvement in now mild bilateral asymmetric peripheral infiltrates,. Findings are consistent with resolving pneumonia HPI: See history in H and P Review of Systems: Constitutional: negative for chills, fevers, sweats Respiratory: SOB present , improving Cardiovascular: negative for chest pain, chest pressure/discomfort, lower extremity edema, palpitations Gastrointestinal: negative for abdominal pain, constipation, diarrhea, nausea, vomiting Neurological: negative for dizziness, headache Data: Past Medical History: no change Social History: no change Family History: @no change Vitals: I/O (24Hr): Intake/Output Summary (Last 24 hours) at 05/04/2020 1304 Last data filed at 05/04/2020 1200 Gross per 24 hour Intake 1325 ml Output 2720 ml Net -1395 ml Labs: URINE ANALYSIS: No results found for: LABURIN CBC: Lab Results Component Value Date WBC 25.6 05/04/2020 HGB 13.6 05/04/2020 PLT 380 05/04/2020 BMP: Lab Results Component Value Date NA 125 05/04/2020 K 4.8 05/04/2020 CL 94 05/04/2020 CO2 21 05/04/2020 BUN 46 05/04/2020 CREATININE 1.68 05/04/2020 GLUCOSE 271 05/04/2020 LIVER PROFILE: Lab Results Component Value Date ALT 28 04/27/2020 AST 28 04/27/2020 PROT 6.2 04/27/2020 BILITOT 0.26 04/27/2020 BILIDIR 0.11 04/27/2020 LABALBU 3.1 04/27/2020 Radiology: Physical Examination: With coronavirus pandemic, limited supply of PPE, physical exam was not done Assessment: Primary Problem Pneumonia due to COVID-19 virus Active Hospital Problems Diagnosis Date Noted Oral thrush [B37.0] 05/04/2020 NAOMIE (acute kidney injury) ([facility]) [N17.9] 04/24/2020 COPD (chronic obstructive pulmonary disease) ([facility]) [J44.9] 04/24/2020 DM (diabetes mellitus) ([facility]) [E11.9] 04/24/2020 Pneumonia due to COVID-19 virus [U07.1, J12.82] 04/23/2020 Plan: 1. COVID-19 pneumonia, completed remdesivir, on Decadron, completed antibiotic 2. Hypertension, controlled 3. Diabetes, better controlled, increasing Lantus to 20 twice a day, high-dose sliding scale 4. DVT prophylaxis with heparin 5. Creatinine is high, hyponatremia, nephrology following, hydrochlorothiazide discontinued. 6. Acute hypoxic respiratory failure due to COVID-19 infection Medications: Allergies: No Known Allergies Current Meds: Scheduled Meds: nystatin 5 mL Oral 4x Daily urea 15 g Oral Daily insulin glargine 20 Units Subcutaneous BID insulin lispro 0-18 Units Subcutaneous TID WC insulin lispro 0-9 Units Subcutaneous Nightly furosemide 20 mg Oral Daily budesonide-formoterol 2 puff Inhalation BID senna 1 tablet Oral BID atenolol 50 mg Oral Daily sodium chloride flush 10 mL Intravenous 2 times per day heparin (porcine) 5,000 Units Subcutaneous 3 times per day dexamethasone 6 mg Oral Daily aspirin 81 mg Oral Daily albuterol sulfate HFA 2 puff Inhalation 4x daily And ipratropium 2 puff Inhalation 4x daily montelukast 10 mg Oral Daily tamsulosin 0.4 mg Oral Daily atorvastatin 10 mg Oral Daily amLODIPine 10 mg Oral Daily Continuous Infusions: sodium chloride dextrose PRN Meds: magnesium hydroxide, hydrALAZINE, zolpidem, sodium chloride, sodium chloride, sodium chloride flush, promethazine OR ondansetron, acetaminophen OR acetaminophen, dextromethorphan, benzonatate, magnesium sulfate, potassium chloride OR potassium alternative oral replacement OR potassium chloride, glucose, dextrose, glucagon (rDNA), dextrose, albuterol sulfate HFA Alec Collazo MD 05/04/2020 1:04 PM * Eliezer Patterson MD - 05/04/2020 11:40 AM EST NEPHROLOGY PROGRESS NOTE Patient : Jourdan Arevalo; 74 y.o. Location: Attending: Kip Gil MD Admit Date: 04/23/2020 Hospital Day: 11 Interval history: Events of the past 24 hours were reviewed with the critical care nursing staff. Patient was not seen by [id number] encounter due to COVID- 19 respiratory isolation status. Patient is now on nasal cannula oxygen 7 L. He looks comfortable. Urine sodium is down to 125 from 130. He is on a fluid 1500 fluid restriction. History of Present Illness: This is a 74 y.o. male with past medical history of type 2 diabetes, essential hypertension, CKD stage III with baseline creatinine of about 1.8 mg/dL, he follows up with [facility] in [place], no recent outpatient labs available, his last labs before this hospitalization was in 2011 and his creatinine at that time was 1.8 mg/dL. She admitted with complaints of cough fatigue shortness of breath that started a weeks ago, tested positive for Covid, and admitted for COVID-19 pneumonia Labs showed serum creatinine of 2.3 mg/dL on admission and therefore nephrology consultation has been requested Objective: CURRENT TEMPERATURE: Temp: 98.4 F (36.9 C) MAXIMUM TEMPERATURE OVER 24HRS: Temp (24hrs), Av.8 F (36.6 C), Min:97.5 F (36.4 C), Max:98.4 F (36.9 C) CURRENT RESPIRATORY RATE: Resp: 16 CURRENT PULSE: Pulse: 69 CURRENT BLOOD PRESSURE: BP: (!) 146/72 24HR BLOOD PRESSURE RANGE: Systolic (24hrs), Av , Min:132 , Max:165 ; Diastolic (24hrs), Av, Min:58, Max:78 24HR INTAKE/OUTPUT: Intake/Output Summary (Last 24 hours) at 05/04/2020 1140 Last data filed at 05/04/2020 0832 Gross per 24 hour Intake 1325 ml Output 2120 ml Net -795 ml Patient Vitals for the past 96 hrs (Last 3 readings): Weight 05/04/20 0034 193 lb 9 oz (87.8 kg) 05/03/20 0600 188 lb (85.3 kg) 05/02/20 0600 188 lb 15 oz (85.7 kg) Physical Exam: Remainder of the examExcessive risk deferred due to excessive risk conferred by bedside physical exam during a global SARS Cov 2/COVID 19 pandemic, in a setting where local and national supplies of personal protective equipment are depleted. Labs: CBC: Recent Labs 05/02/2042405/03/2043205/04/20 0513 WBC 24.5* 27.3* 25.6* RBC 5.02 4.88 4.86 HGB 14.1 13.8 13.6 HCT 42.4 41.1 41.0 MCV 84.4 84.3 84.3 MCH 28.1 28.3 27.9 MCHC 33.3 33.6 33.2 RDW 12.9 13.2 13.0 PLT 394 373 380 MPV 9.2 8.9 8.3 BMP: Recent Labs 05/02/2042405/03/2043205/04/20 0513 NA 129* 130* 125* K 4.8 4.8 4.8 CL 98 98 94* CO2 BUN 50* 48* 46* CREATININE 1.44* 1.43* 1.68* GLUCOSE 272* 219* 271* CALCIUM 8.5* 8.3* 8.5* Magnesium: Recent Labs 05/02/2042405/03/2043205/04/20 0513 MG 2.5 2.4 2.3 Radiology: Chest x-ray Ill-defined lateral left lung and bibasilar airspace disease suspicious for multifocal pneumonia, likely an atypical or viral pneumonia. Assessment/plan: 1. Acute kidney injury superimposed on chronic kidney disease stage III [baseline serum creatinine 1.8 mg/dL] - most consistent with prerenal azotemia. Renal function is stable and patient is on furosemide 20 mg daily to maintain slight negative fluid balance.. Monitor urine output closely. Basic metabolic profile daily. 2. Hyponatremia -usually secondary to HCTZ on admission and possibly underlying SIADH 2nd to COVID-19 Pneumonia -Serum sodium 125mmol/L. Optimize glycemic control. Start urea sodium 15 g daily x3 days to excrete free water Recheck sodium at 5 pm 3. COVID-19 pneumonia - On dexamethasone. 4. Systemic hypertension - Continue current BP medications. Prognosis is guarded. * Shazia Tan RN - 05/04/2020 9:[address] Shmuel blair at bedside. * Johnny Mi MD - 05/04/2020 9:08 AM EST ICU Progress Note (Non-Vent) [facility] Patient - Jourdan Arevalo, Age - 74 y.o. - 1945 Room Number - [facility] - [id number] Located Within [facility] # - [id number] Date of Admission - 04/23/2020 9:54 PM Events of Past 24 Hours Cough regular high flow now on 7 L nasal cannula saturations around 90 to 92% patient does not lookdyspneic Vitals height is 5' 7 (1.702 m) and weight is 193 lb 9 oz (87.8 kg). His oral temperature is 98.4 F (36.9C). His blood pressure is 150/61 (abnormal) and his pulse is 61. His respiration is 15 and oxygen saturation is 92%. Temperature Range: Temp: 98.4 F (36.9 C) Temp Av.8 F (36.6 C) Min: 97.5 F (36.4 C) Max: 98.4 F(36.9 C) BP Range: Systolic (24hrs), Av , Min:132 , Max:165 Diastolic (24hrs), Av, Min:58, Max:78 Pulse Range: Pulse Av Min: 60 Max: 73 Respiration Range: Resp Av.1 Min: 14 Max: 24 Current Pulse Ox:: SpO2: 92 % 24HR Pulse Ox Range: SpO2 Av.3 % Min: 88 % Max: 95 % Oxygen Amount and Delivery: O2 Flow Rate (L/min): 7.5 L/min Wt Readings from Last 3 Encounters: 05/04/20 193 lb 9 oz (87.8 kg) I/O Intake/Output Summary (Last 24 hours) at 05/04/2020 0909 Last data filed at 05/04/2020 0800 Gross per 24 hour Intake 1440 ml Output 2520 ml Net -1080 ml DRAIN/TUBE OUTPUT Invasive Lines ICP PRESSURE RANGE No data recorded CVP PRESSURE RANGE No data recorded Medications insulin glargine 20 Units Subcutaneous BID insulin lispro 0-18 Units Subcutaneous TID WC insulin lispro 0-9 Units Subcutaneous Nightly furosemide 20 mg Oral Daily budesonide-formoterol 2 puff Inhalation BID senna 1 tablet Oral BID atenolol 50 mg Oral Daily sodium chloride flush 10 mL Intravenous 2 times per day heparin (porcine) 5,000 Units Subcutaneous 3 times per day dexamethasone 6 mg Oral Daily aspirin 81 mg Oral Daily albuterol sulfate HFA 2 puff Inhalation 4x daily And ipratropium 2 puff Inhalation 4x daily montelukast 10 mg Oral Daily tamsulosin 0.4 mg Oral Daily atorvastatin 10 mg Oral Daily amLODIPine 10 mg Oral Daily hydrALAZINE, zolpidem, sodium chloride, sodium chloride, sodium chloride flush, promethazine ORondansetron, magnesium hydroxide, acetaminophen OR acetaminophen, dextromethorphan, benzonatate, magnesium sulfate, potassium chloride OR potassium alternative oral replacement OR potassium chloride, glucose, dextrose, glucagon (rDNA), dextrose, albuterol sulfate HFA IV Drips/Infusions sodium chloride dextrose Diet/Nutrition DIET CARB CONTROL; Carb Control: 4 carb choices (60 gms)/meal Exam Constitutional - Alert, arousable General Appearance well developed, well nourished HEENT -normocephalic, atraumatic. PERRLA Lungs - Chest expands equally, no wheezes, bilateral crackles left greater than right, slightly better cardiovascular - Heart sounds are normal. normal rate and rhythm regular, no murmur, gallop or rub. Abdomen - soft, nontender, nondistended, no masses or organomegaly Neurologic - CN II-XII are grossly intact. There are no focal motor deficits Skin - no bruising or bleeding Extremities - no cyanosis, clubbing or edema Lab Results CBC Lab Results Component Value Date WBC 25.6 05/04/2020 RBC 4.86 05/04/2020 HGB 13.6 05/04/2020 HCT 41.0 05/04/2020 PLT 380 05/04/2020 MCV 84.3 05/04/2020 MCH 27.9 05/04/2020 MCHC 33.2 05/04/2020 RDW 13.0 05/04/2020 LYMPHOPCT 8 04/23/2020 MONOPCT 9 04/23/2020 BASOPCT 1 04/23/2020 MONOSABS 0.90 04/23/2020 LYMPHSABS 0.80 04/23/2020 EOSABS 0.00 04/23/2020 BASOSABS 0.10 04/23/2020 DIFFTYPE NOT REPORTED 04/23/2020 BMP Lab Results Component Value Date NA 125 05/04/2020 K 4.8 05/04/2020 CL 94 05/04/2020 CO2 21 05/04/2020 BUN 46 05/04/2020 CREATININE 1.68 05/04/2020 GLUCOSE 271 05/04/2020 LFTS Lab Results Component Value Date ALKPHOS 58 04/27/2020 ALT 28 04/27/2020 AST 28 04/27/2020 PROT 6.2 04/27/2020 BILITOT 0.26 04/27/2020 BILIDIR 0.11 04/27/2020 IBILI 0.15 04/27/2020 LABALBU 3.1 04/27/2020 ABG ABGs: No results found for: PHART, PO2ART, [id number] No results found for: IFIO2, MODE, SETTIDVOL, SETPEEP INR No results for input(s): PROTIME, INR in the last 72 hours. APTT No results for input(s): APTT in the last 72 hours. Lactic Acid No results found for: LACTA BNP No results for input(s): BNP in the last 72 hours. Cultures Sputum culture is growing [facility] CXR CT Scans (See actual reports for details) SYSTEMS ASSESSMENT Acute hypoxic respiratory failure Multifocal pneumonia secondary to COVID-19 COPD Type 2 diabetes Thrush Overall seems to be clinically improving Creatinine is rising Inflammatory markers are stable Continue to wean oxygen as tolerated Add nystatin for thrush Defer diabetes management to primary service If we can get him down to 3 L nasal cannula, I feel we can discharge him home he seems to be highlymotivated D-dimer is not elevated so we will continue subcu heparin with DVT prophylaxis dosing Critical Care Time 0 min * Julienne Estrada RCP - 05/04/2020 8:34 AM EST Pt taken off HFNC and placed on 7.5NC . SpO2 91%. Pt tolerating the NC well and appears to not be in any respiratory distress. I will continue to monitor pt and decrease FiO2 as tolerated. * Yumiko Rios RN - 05/04/2020 6:15 AM EST RN called patients Sharon to update her on patients care last night. All questions and concernsanswered. * Triny Tamez RN - 05/03/2020 6:32 PM EST RN spoke to Sharon and gave her an update. * Alec Collazo MD - 05/03/2020 3:42 PM EST IN-PATIENT SERVICE [facility] Internal Medicine Progress Note Chart Reviewed: Yes Patient assessed for rehabilitation services?: Yes Additional Pertinent Hx: This patient is a 74 y.o. Non-/non malewho presents with fever and shortness of breath, positive COVID -19 on 04/20/20 Nephrology consulted due to NAOMIE Family / Caregiver Present: No 05/03/2020 4:51 PM Name: Jourdan Arevalo Acct: [id number] Room: IP Day: 10 Admit Date: 04/23/2020 9:54 PM PCP: Dulce Maria Del Castillo MD Code Status: Full Code Subjective: C/C: Chief Complaint Patient presents with Positive For Covid-19 Principal Problem: Pneumonia due to COVID-19 virus Active Problems: NAOMIE (acute kidney injury) (HCC) COPD (chronic obstructive pulmonary disease) (HCC) DM (diabetes mellitus) (HCC) Resolved Problems: * No resolved hospital problems. * Interval History Status: improved. Patient with past medical history of hypertension, diabetes, CKD, admitted with cough fatigue, shortness of breath, found to be Covid positive Patient evaluated by [facility], has nonoliguric renal failure Significant last 24 hr data reviewed ; Vitals: 05/03/20 1215 05/03/20 1230 05/03/20 1442 05/03/20 1528 BP: 135/63 Pulse: 68 71 Resp: 16 18 24 Temp: 97.5 F (36.4 C) TempSrc: Oral SpO2: 90% (!) 88% 92% 92% Weight: Height: Recent Results (from the past 24 hour(s)) POC Glucose Fingerstick Collection Time: 05/02/20 5:04 PM Result Value Ref Range POC Glucose 352 (H) 75 - 110 mg/dL POC Glucose Fingerstick Collection Time: 05/02/20 7:57 PM Result Value Ref Range POC Glucose 422 (HH) 75 - 110 mg/dL CBC Collection Time: 05/03/20 4:33 AM Result Value Ref Range WBC 27.3 (H) 3.5 - 11.0 k/uL RBC 4.88 4.5 - 5.9 m/uL Hemoglobin 13.8 13.5 - 17.5 g/dL Hematocrit 41.1 41 - 53 % MCV 84.3 80 - 100 fL MCH 28.3 26 - 34 pg MCHC 33.6 31 - 37 g/dL RDW 13.2 11.5 - 14.9 % Platelets 373 150 - 450 k/uL MPV 8.9 6.0 - 12.0 fL NRBC Automated NOT REPORTED per 100 WBC BASIC METABOLIC PANEL Collection Time: 05/03/20 4:33 AM Result Value Ref Range Glucose 219 (H) 70 - 99 mg/dL BUN 48 (H) 8 - 23 mg/dL CREATININE 1.43 (H) 0.70 - 1.20 mg/dL Bun/Cre Ratio NOT REPORTED 9 - 20 Calcium 8.3 (L) 8.6 - 10.4 mg/dL Sodium 130 (L) 135 - 144 mmol/L Potassium 4.8 3.7 - 5.3 mmol/L Chloride 98 98 - 107 mmol/L CO2 21 20 - 31 mmol/L Anion Gap 11 9 - 17 mmol/L GFR Non- 48 (L) >60 mL/min GFR 58 (L) >60 mL/min GFR Comment GFR Staging NOT REPORTED Magnesium Collection Time: 05/03/20 4:33 AM Result Value Ref Range Magnesium 2.4 1.6 - 2.6 mg/dL POC Glucose Fingerstick Collection Time: 05/03/20 8:30 AM Result Value Ref Range POC Glucose 177 (H) 75 - 110 mg/dL POC Glucose Fingerstick Collection Time: 05/03/20 11:07 AM Result Value Ref Range POC Glucose 234 (H) 75 - 110 mg/dL POC Glucose Fingerstick Collection Time: 05/03/20 4:28 PM Result Value Ref Range POC Glucose 433 (HH) 75 - 110 mg/dL Recent Labs 05/02/20 1704 05/02/20 1957 05/03/20 0830 05/03/20 1107 05/03/20 1628 POCGLU 352* 422* 177* 234* 433* Xr Chest Portable Result Date: 05/03/2020 EXAMINATION: ONE XRAY VIEW OF THE CHEST 05/03/2020 6:07 am COMPARISON: April 30, 2020, chest exam HISTORY: ORDERING SYSTEM PROVIDED HISTORY: Acute respiratory failure TECHNOLOGIST PROVIDED HISTORY: Acute respiratory failure Reason for Exam: Acute respiratory failure Acuity: Acute Type of Exam: Subsequent/Follow-up Additional signs and symptoms: Acute respiratory failure FINDINGS: Stable cardiac silhouette Interval improvement in now mild bilateral asymmetric, left greater than right, peripherallung infiltrates No significant pleural process Interval improvement in now mild bilateral asymmetric peripheral infiltrates,. Findings are consistent with resolving pneumonia HPI: See history in H and P Review of Systems: Constitutional: negative for chills, fevers, sweats Respiratory: SOB present , improving Cardiovascular: negative for chest pain, chest pressure/discomfort, lower extremity edema, palpitations Gastrointestinal: negative for abdominal pain, constipation, diarrhea, nausea, vomiting Neurological: negative for dizziness, headache Data: Past Medical History: no change Social History: no change Family History: @no change Vitals: I/O (24Hr): Intake/Output Summary (Last 24 hours) at 05/03/2020 1651 Last data filed at 05/03/2020 1230 Gross per 24 hour Intake 710 ml Output 1600 ml Net -890 ml Labs: URINE ANALYSIS: No results found for: LABURIN CBC: Lab Results Component Value Date WBC 27.3 05/03/2020 HGB 13.8 05/03/2020 PLT 373 05/03/2020 BMP: Lab Results Component Value Date NA 130 05/03/2020 K 4.8 05/03/2020 CL 98 05/03/2020 CO2 21 05/03/2020 BUN 48 05/03/2020 CREATININE 1.43 05/03/2020 GLUCOSE 219 05/03/2020 LIVER PROFILE: Lab Results Component Value Date ALT 28 04/27/2020 AST 28 04/27/2020 PROT 6.2 04/27/2020 BILITOT 0.26 04/27/2020 BILIDIR 0.11 04/27/2020 LABALBU 3.1 04/27/2020 Radiology: Physical Examination: With coronavirus pandemic, limited supply of PPE, physical exam was not done Assessment: Primary Problem Pneumonia due to COVID-19 virus Active Hospital Problems Diagnosis Date Noted NAOMIE (acute kidney injury) (HCC) [N17.9] 04/24/2020 COPD (chronic obstructive pulmonary disease) (HCC) [J44.9] 04/24/2020 DM (diabetes mellitus) (HCC) [E11.9] 04/24/2020 Pneumonia due to COVID-19 virus [U07.1, J12.82] 04/23/2020 Plan: 1. COVID-19 pneumonia, completed remdesivir, on Decadron, completed antibiotic 2. Hypertension, controlled 3. Diabetes, uncontrolled, increasing Lantus to 21 twice a day, high-dose sliding scale 4. DVT prophylaxis with heparin 5. Creatinine improving, nephrology following 6. Acute hypoxic respiratory failure due to COVID-19 infection Medications: Allergies: No Known Allergies Current Meds: Scheduled Meds: insulin glargine 20 Units Subcutaneous BID insulin lispro 0-18 Units Subcutaneous TID WC insulin lispro 0-9 Units Subcutaneous Nightly furosemide 20 mg Oral Daily budesonide-formoterol 2 puff Inhalation BID senna 1 tablet Oral BID atenolol 50 mg Oral Daily sodium chloride flush 10 mL Intravenous 2 times per day heparin (porcine) 5,000 Units Subcutaneous 3 times per day dexamethasone 6 mg Oral Daily aspirin 81 mg Oral Daily albuterol sulfate HFA 2 puff Inhalation 4x daily And ipratropium 2 puff Inhalation 4x daily montelukast 10 mg Oral Daily tamsulosin 0.4 mg Oral Daily atorvastatin 10 mg Oral Daily amLODIPine 10 mg Oral Daily Continuous Infusions: sodium chloride dextrose PRN Meds: hydrALAZINE, zolpidem, sodium chloride, sodium chloride, sodium chloride flush, promethazine OR ondansetron, magnesium hydroxide, acetaminophen OR acetaminophen, dextromethorphan, benzonatate, magnesium sulfate, potassium chloride OR potassium alternative oral replacement OR potassium chloride, glucose, dextrose, glucagon (rDNA), dextrose, albuterol sulfate HFA Alec Collazo MD 05/03/2020 4:51 PM * Guanakito Baum MD - 05/03/2020 3:20 PM EST [facility] - Infectious diseases evaluation admission date 04/23/2020 reason for consultation: COVID Impression : Current: COVID 19 with possible superimposed bacterial infection Sepsis Acute kidney injury Leukocytosis possible steroid related COPD Diabetes mellitus Recommendations Ceftriaxone 6 days course completed 04/28/2020 Remdesivir 5 days course completed 04/29/2020 Monitor off antibiotics Patient refused convalescent plasma Decadron On subcu heparin Procalcitonin level in a.m. Follow CBC, renal function Supportive care Discussed with nursing staff Infection Control Recommendations Droplet Plus Precautions History of Present Illness: Initial history: Jourdan Arevalo is a 74 y.o.-year-old male presented to ED for low grade fever, SOB taht worsens with exertion. Denies chest pain, nausea, vomiting, diarrhea, loss of taste/smell. Pt has history of COPD, hypertension and diabetes. Interval changes 05/03/2020 The patient remains on high flow oxygen, reported fever, no reported diarrhea or vomiting. WBC 27 Sputum cultures 05/02/2020 grew Gege albicans Patient Vitals for the past 8 hrs: BP Temp Temp src Pulse Resp SpO2 05/03/202023 138/69 97.8 F (36.6 C) Oral 73 19 92 % 05/03/20 1951 16 91 % 05/03/20 1600 132/72 97.7 F (36.5 C) Oral 71 22 90 % 05/03/20 1528 24 92 % 05/03/20 1500 (!) 157/74 73 16 91 % 05/03/20 1442 92 % I have personally reviewed the past medical history, past surgical history, medications, social history, and family history, and I haveupdated the database accordingly. Allergies: Patient has no known allergies. Review of Systems: Review of Systems HENT: Negative. Eyes: Negative. Respiratory: Positive for cough and shortness of breath. Cardiovascular: Negative. Negative for chest pain. Gastrointestinal: Negative. Genitourinary: Negative. Musculoskeletal: Negative. Skin: Negative. Physical Examination : Remainder of examination deferred due to excessive risk conferred by physical examination during a global pandemic due to coronavirus 19. In a setting where local and national supplies of personal protective equipment are depleted Past Medical History: Past Medical History: Diagnosis Date Arthritis Chronic kidney disease Stage III kidney disease COPD (chronic obstructive pulmonary disease) (HCC) Diabetes mellitus (HCC) Hyperlipidemia Hypertension Past Surgical History: History reviewed. No pertinent surgical history. Medications: insulin glargine 20 Units Subcutaneous BID insulin lispro 0-18 Units Subcutaneous TID WC insulin lispro 0-9 Units Subcutaneous Nightly furosemide 20 mg Oral Daily budesonide-formoterol 2 puff Inhalation BID senna 1 tablet Oral BID atenolol 50 mg Oral Daily sodium chloride flush 10 mL Intravenous 2 times per day heparin (porcine) 5,000 Units Subcutaneous 3 times per day dexamethasone 6 mg Oral Daily aspirin 81 mg Oral Daily albuterol sulfate HFA 2 puff Inhalation 4x daily And ipratropium 2 puff Inhalation 4x daily montelukast 10 mg Oral Daily tamsulosin 0.4 mg Oral Daily atorvastatin 10 mg Oral Daily amLODIPine 10 mg Oral Daily Social History: Social History Socioeconomic History Marital status: Spouse name: Not on file Number of children: Not on file Years of education: Not on file Highest education level: Not on file Occupational History Not on file Social Needs Financial resource strain: Not on file Food insecurity Worry: Not on file Inability: Not on file Transportation needs Medical: Not on file Non-medical: Not on file Tobacco Use Smoking status: Never Smoker Smokeless tobacco: Never Used Substance and Sexual Activity Alcohol use: No Drug use: No Sexual activity: Not on file Lifestyle Physical activity Days per week: Not on file Minutes per session: Not on file Stress: Not on file Relationships Social connections Talks on phone: Not on file Gets together: Not on file Attends jew service: Not on file Active member of club or organization: Not on file Attends meetings of clubs or organizations: Not on file Relationship status: Not on file Intimate partner violence Fear of current or ex partner: Not on file Emotionally abused: Not on file Physically abused: Not on file Forced sexual activity: Not on file Other Topics Concern Not on file Social History Narrative Not on file Family History: History reviewed. No pertinent family history. Medical Decision Making: I have independently reviewed/ordered the following labs: CBC with Differential: Recent Labs 05/02/20 0425 05/03/20 0433 WBC 24.5* 27.3* HGB 14.1 13.8 HCT 42.4 41.1 PLT 394 373 BMP: Recent Labs 05/02/20 0425 05/03/20 0433 NA 129* 130* K 4.8 4.8 CL 98 98 CO2 21 21 BUN 50* 48* CREATININE 1.44* 1.43* MG 2.5 2.4 Hepatic Function Panel: No results for input(s): PROT, LABALBU, BILIDIR, IBILI, BILITOT, ALKPHOS, ALT, AST in the last 72 hours. No results for input(s): RPR in the last 72 hours. No results for input(s): HIV in the last 72 hours. No results for input(s): BC in the last 72 hours. Lab Results Component Value Date CREATININE 1.43 05/03/2020 GLUCOSE 219 05/03/2020 Detailed results: Thank you for allowing us to participate in the care of this patient.Please call with questions. This note is created with the assistance of a speech recognition program. While intending to generate adocument that actually reflects the content of the visit, the document can still have some errors including those of syntax and sound a like substitutions which may escape proof reading. It such instances, actual meaningcan be extrapolated by contextual diversion. Guanakito Baum MD Office: Perfect serve / office [phone] * Brigitte Baeza, CHISEL GRINDER - 05/03/2020 3:17 PM EST Physical Therapy [facility] Physical Therapy Progress Note Date: 05/03/20 Patient Name: Jourdan Arevalo Room: Account: [id number] : 1945 (74 y.o.) Gender: male Referring Practitioner: Curry Dorado APRN - FIRE WATCHMAN Diagnosis: Pneumonia due to COVID-19 virus Past Medical History: has a past medical history of Arthritis, Chronic kidney disease, COPD (chronic obstructive pulmonary disease) (HCC), Diabetes mellitus (HCC), Hyperlipidemia, and Hypertension. Past Surgical History: has no past surgical history on file. Additional Pertinent Hx: This patient is a 74 y.o. Non-/non malewho presents with fever and shortness of breath, positive COVID -19 on 04/20/20 Nephrology consulted due to NAOMIE Restrictions/Precautions Restrictions/Precautions: Fall Risk(Covid(+), high flow) Required Braces or Orthoses?: No Vital Signs Patient Currently in Pain: No Oxygen Therapy SpO2: 92 % Pulse Oximeter Device Mode: Continuous Pulse Oximeter Device Location: Finger O2 Device: Heated high flow cannula Bed Mobility: Bed Mobility Supine to Sit: Supervision Scooting: Supervision Bed mobility Scooting: Supervision Transfers: Sit to Stand: Independent Stand to sit: Independent Bed to Chair: Independent Ambulation 1 Surface: level tile Device: No Device Other Apparatus: O2(high flow) Assistance: Stand by assistance Quality of Gait: steady, No LOB Distance: 5ft Comments: Limited distance due to being on high flow Stairs/Curb Stairs?: No BALANCE Posture: Good Sitting - Static: Good Sitting - Dynamic: Good Standing - Static: Good Standing - Dynamic: Good;- EXERCISES Other exercises?: Yes Other exercises 1: (B) LE seated ex x 15, including orange t-band Other exercises 2: (B)LE standing ex x 10 Other exercises 3: standing chanell at RW x 5min Other exercises 4: step tap alt LE's x 10 on 4 bin(CGA/BUMBOATER) Other exercises 5: static bal: NBOS E.O.x 30sec, E.C. x 20sec Other exercises 6: tandom stance no UE support x 20sec ea Activity Tolerance: Patient Tolerated treatment well Other Comments Comments: Oxygen levels monitored throughout session and lowest pt destated was 87% with standing LE ex. 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 Treatment Diagnosis: decreased tolerance to activity Prognosis: Good REQUIRES PT FOLLOW UP: Yes Goals Short term goals Time Frame for Short term goals: 2 visits Short term goal 1: Pt able to ambualte 100 to 150 ft in the room with least amount of suplemental o2, maintaining sao2 > 90%, safely Short term goal 2: Pt able to demonstrate good tech for HEP to cntinue at home Short term goal 3: Pt able to perform 6 step ups x 10 with 1 UE support, SBA 05/03/20 1517 PT Individual Minutes Time In 1437 Time Out 1517 Minutes 40 * Memo Brown MD - 05/03/2020 2:41 PM EST NEPHROLOGY PROGRESS NOTE Patient : Jourdan Arevalo; 74 y.o. Location: Attending: Kip Gil MD Admit Date: 04/23/2020 Hospital Day: 10 Interval history: Events of the past 24 hours were reviewed with the critical care nursing staff. Patient was not seen by [id number] encounter due to COVID- 19 respiratory isolation status. He remains on high flow oxygen and is hemodynamically stable. He is nonoliguric.. History of Present Illness: This is a 74 y.o. male with past medical history of type 2 diabetes, essential hypertension, CKD stage III with baseline creatinine of about 1.8 mg/dL, he follows up with [facility] in [place], no recent outpatient labs available, his last labs before this hospitalization was in 2011 and his creatinine at that time was 1.8 mg/dL. She admitted with complaints of cough fatigue shortness of breath that started a weeks ago, tested positive for Covid, and admitted for COVID-19 pneumonia Labs showed serum creatinine of 2.3 mg/dL on admission and therefore nephrology consultation has been requested Objective: CURRENT TEMPERATURE: Temp: 97.5 F (36.4 C) MAXIMUM TEMPERATURE OVER 24HRS: Temp (24hrs), Av.8 F (36.6 C), Min:97.5 F (36.4 C), Max:98.4 F (36.9 C) CURRENT RESPIRATORY RATE: Resp: 18 CURRENT PULSE: Pulse: 71 CURRENT BLOOD PRESSURE: BP: 135/63 24HR BLOOD PRESSURE RANGE: Systolic (24hrs), Av , Min:118 , Max:177 ; Diastolic (24hrs), Av, Min:53, Max:97 24HR INTAKE/OUTPUT: Intake/Output Summary (Last 24 hours) at 05/03/2020 1441 Last data filed at 05/03/2020 0341 Gross per 24 hour Intake 355 ml Output 900 ml Net -545 ml Patient Vitals for the past 96 hrs (Last 3 readings): Weight 05/02/20 0600 188 lb 15 oz (85.7 kg) Physical Exam: Remainder of the examExcessive risk deferred due to excessive risk conferred by bedside physical exam during a global SARS Cov 2/COVID 19 pandemic, in a setting where local and national supplies of personal protective equipment are depleted. Labs: CBC: Recent Labs 01/09/41805/02/2042405/03/20432 WBC 17.6* 24.5* 27.3* RBC 4.85 5.02 4.88 HGB 14.1 14.1 13.8 HCT 40.7* 42.4 41.1 MCV 84.0 84.4 84.3 MCH 29.1 28.1 28.3 MCHC 34.7 33.3 33.6 RDW 13.3 12.9 13.2 PLT 347 394 373 MPV 9.2 9.2 8.9 BMP: Recent Labs 05/01/2041805/02/2042405/03/20432 NA 131* 129* 130* K 4.8 4.8 4.8 CL 101 98 98 CO2 BUN 48* 50* 48* CREATININE 1.41* 1.44* 1.43* GLUCOSE 265* 272* 219* CALCIUM 8.4* 8.5* 8.3* Magnesium: Recent Labs 05/01/2041805/02/2042405/03/20432 MG 2.2 2.5 2.4 Radiology: Chest x-ray Ill-defined lateral left lung and bibasilar airspace disease suspicious for multifocal pneumonia, likely an atypical or viral pneumonia. Assessment/plan: 1. Acute kidney injury superimposed on chronic kidney disease stage III [baseline serum creatinine 1.8 mg/dL] - most consistent with prerenal azotemia. Renal function is stable and patient is on furosemide 20 mg daily to maintain slight negative fluid balance.. Monitor urine output closely. Basic metabolic profile daily. 2. Hyponatremia - Multifactorial etiology and partly secondary to thiazide diuretic as well as to hyperglycemia. Serum sodium 130 mmol/L. Optimize glycemic control. Check serum osmolality. 3. COVID-19 pneumonia - On dexamethasone. 4. Systemic hypertension - Continue amlodipine 10 mg p.o. daily and atenolol 50 mg p.o. daily and repeat blood pressure after medications. Continue IV hydralazine 10 mg q. 6 hourly for systolic blood pressure greater than 160. Prognosis is guarded. * Johnny Mi MD - 05/03/2020 9:07 AM EST ICU Progress Note (Non-Vent) O [facility] Patient - Jourdan Arevalo, Age - 74 y.o. - 1945 Room Number - N - [id number] Located Within [facility] # - [id number] Date of Admission - 04/23/2020 9:54 PM Events of Past 24 Hours He looks quite comfortable, but still on 35 L high flow with FiO2 of 50%; saturations around 88 to 90% Vitals height is 5' 8 (1.727 m) and weight is 188 lb 15 oz (85.7 kg). His temperature is 97.9 F (36.6 C).His blood pressure is 118/97 (abnormal) and his pulse is 67. His respiration is 13 and oxygen saturation is 92%. Temperature Range: Temp: 97.9 F (36.6 C) Temp Av.8 F (36.6 C) Min: 97.5 F (36.4 C) Max: 98.4 F (36.9 C) BP Range: Systolic (24hrs), Av , Min:118 , Max:177 Diastolic (24hrs), Av, Min:53, Max:97 Pulse Range: Pulse Av.5 Min: 61 Max: 71 Respiration Range: Resp Av Min: 7 Max: 21 Current Pulse Ox:: SpO2: 92 % 24HR Pulse Ox Range: SpO2 Av.6 % Min: 88 % Max: 97 % Oxygen Amount and Delivery: O2 Flow Rate (L/min): 35 L/min Wt Readings from Last 3 Encounters: 05/02/20 188 lb 15 oz (85.7 kg) I/O Intake/Output Summary (Last 24 hours) at 05/03/2020 0907 Last data filed at 05/03/2020 0341 Gross per 24 hour Intake 950 ml Output 1300 ml Net -350 ml DRAIN/TUBE OUTPUT Invasive Lines ICP PRESSURE RANGE No data recorded CVP PRESSURE RANGE No data recorded Medications insulin glargine 15 Units Subcutaneous BID furosemide 20 mg Oral Daily budesonide-formoterol 2 puff Inhalation BID senna 1 tablet Oral BID atenolol 50 mg Oral Daily sodium chloride flush 10 mL Intravenous 2 times per day heparin (porcine) 5,000 Units Subcutaneous 3 times per day dexamethasone 6 mg Oral Daily aspirin 81 mg Oral Daily insulin lispro 0-12 Units Subcutaneous TID WC insulin lispro 0-6 Units Subcutaneous Nightly albuterol sulfate HFA 2 puff Inhalation 4x daily And ipratropium 2 puff Inhalation 4x daily montelukast 10 mg Oral Daily tamsulosin 0.4 mg Oral Daily atorvastatin 10 mg Oral Daily amLODIPine 10 mg Oral Daily hydrALAZINE, zolpidem, sodium chloride, sodium chloride, sodium chloride flush, promethazine ORondansetron, magnesium hydroxide, acetaminophen OR acetaminophen, dextromethorphan, benzonatate, magnesium sulfate, potassium chloride OR potassium alternative oral replacement OR potassium chloride, glucose, dextrose, glucagon (rDNA), dextrose, albuterol sulfate HFA IV Drips/Infusions sodium chloride dextrose Diet/Nutrition DIET CARB CONTROL; Carb Control: 4 carb choices (60 gms)/meal Exam Constitutional - Alert, arousable General Appearance well developed, well nourished HEENT -normocephalic, atraumatic. PERRLA Lungs - Chest expands equally, no wheezes, bibasilar crackles left greater than right Cardiovascular - Heart sounds are normal. normal rate and rhythm regular, no murmur, gallop or rub. Abdomen - soft, nontender, nondistended, no masses or organomegaly Neurologic - CN II-XII are grossly intact. There are no focal motor deficits Skin - no bruising or bleeding Extremities - no cyanosis, clubbing or edema Lab Results CBC Lab Results Component Value Date WBC 27.3 05/03/2020 RBC 4.88 05/03/2020 HGB 13.8 05/03/2020 HCT 41.1 05/03/2020 PLT 373 05/03/2020 MCV 84.3 05/03/2020 MCH 28.3 05/03/2020 MCHC 33.6 05/03/2020 RDW 13.2 05/03/2020 LYMPHOPCT 8 04/23/2020 MONOPCT 9 04/23/2020 BASOPCT 1 04/23/2020 MONOSABS 0.90 04/23/2020 LYMPHSABS 0.80 04/23/2020 EOSABS 0.00 04/23/2020 BASOSABS 0.10 04/23/2020 DIFFTYPE NOT REPORTED 04/23/2020 BMP Lab Results Component Value Date NA 130 05/03/2020 K 4.8 05/03/2020 CL 98 05/03/2020 CO2 21 05/03/2020 BUN 48 05/03/2020 CREATININE 1.43 05/03/2020 GLUCOSE 219 05/03/2020 LFTS Lab Results Component Value Date ALKPHOS 58 04/27/2020 ALT 28 04/27/2020 AST 28 04/27/2020 PROT 6.2 04/27/2020 BILITOT 0.26 04/27/2020 BILIDIR 0.11 04/27/2020 IBILI 0.15 04/27/2020 LABALBU 3.1 04/27/2020 ABG ABGs: No results found for: PHART, PO2ART, [id number] No results found for: IFIO2, MODE, SETTIDVOL, SETPEEP INR No results for input(s): PROTIME, INR in the last 72 hours. APTT No results for input(s): APTT in the last 72 hours. Lactic Acid No results found for: LACTA BNP No results for input(s): BNP in the last 72 hours. Cultures Radiology CXR SYSTEMS ASSESSMENT Acute hypoxic respiratory failure Multifocal pneumonia secondary to COVID-19 COPD Type 2 diabetes Plan Encourage him to use his incentive spirometer which he is not doing He states he is sleeping on his side so we will continue that he cannot lay prone Continue Decadron I told him that he could go home only when he is down to 3 to 4 L nasal cannula Continue his bronchodilators-Combivent and Symbicort DVT prophylaxis with subcu heparin Recheck inflammatory markers tomorrow Chest x-ray is improving Critical Care Time 0 min * Daiana Suero, [facility] - 05/03/2020 7:59 AM EST PROVIDE ADEQUATE OXYGENATION WITH ACCEPTABLE SP02/ABG'S [x] IDENTIFY APPROPRIATE OXYGEN THERAPY [x] MONITOR SP02/ABG'S NEEDED [x] PATIENT EDUCATION NEEDED * Kat Morales RN - 05/03/2020 7:21 AM EST Regional Manager called pt's , Sharon, with condition update, pt still on hi flow but6 maintaining o2 [id number]%; HS BS was 422 but improved this am at 273; still await pre-cert; no questions offered per Sharon * Wei Bermudez MD - 05/02/2020 5:22 PM EST Pulmonary Progress Note [facility] Patient - Jourdan Arevalo, Age - 74 y.o. - 1945 Room Number - N - [id number] Located Within [facility] # - [id number] Date of Admission - 04/23/2020 9:54 PM Consulting Service/Physician Consulting - Kip Gil MD Primary Care Physician - Dulce Maria Del Castillo MD Follow-up: Acute respiratory failure SUBJECTIVE Feeling the same, on high flow nasal cannula 35 L and 50% FiO2 Not much short of breath, cough, or wheezing No chest pain, fever or chills No nausea vomiting or diarrhea OBJECTIVE VITALS height is 5' 8 (1.727 m) and weight is 188 lb 15 oz (85.7 kg). His temperature is 97.5 F (36.4 C).His blood pressure is 135/67 and his pulse is 66. His respiration is 17 and oxygen saturation is 92%. Body mass index is 28.73 kg/m . Temperature Range: Temp: 97.5 F (36.4 C) Temp Av.9 F (36.6 C) Min: 97.5 F (36.4 C) Max: 98.2 F(36.8 C) BP Range: Systolic (24hrs), Av , Min:131 , Max:158 Diastolic (24hrs), Av, Min:55, Max:101 Pulse Range: Pulse Av.9 Min: 59 Max: 74 Respiration Range: Resp Av Min: 11 Max: 21 Current Pulse Ox:: SpO2: 92 % 24HR Pulse Ox Range: SpO2 Av.1 % Min: 85 % Max: 95 % Oxygen Amount and Delivery: O2 Flow Rate (L/min): 35 L/min Wt Readings from Last 3 Encounters: 05/02/20 188 lb 15 oz (85.7 kg) I/O (24 Hours) Intake/Output Summary (Last 24 hours) at 05/02/2020 1722 Last data filed at 05/02/2020 1214 Gross per 24 hour Intake 1345 ml Output 875 ml Net 470 ml EXAM General Appearance Awake, alert, in no acute distress HEENT - normocephalic, atraumatic. Neck -no JVD, trachea midline Lungs - decreased sounds, no wheezing, no distress Cardiovascular - Heart sounds are normal. Regular rate and rhythm Abdomen - Soft, nontender, nondistended, no guarding Neurologic -appropriate, following commands, Extremities - No clubbing, cyanosis, edema MEDS insulin glargine 15 Units Subcutaneous BID furosemide 20 mg Oral Daily budesonide-formoterol 2 puff Inhalation BID senna 1 tablet Oral BID atenolol 50 mg Oral Daily sodium chloride flush 10 mL Intravenous 2 times per day heparin (porcine) 5,000 Units Subcutaneous 3 times per day dexamethasone 6 mg Oral Daily aspirin 81 mg Oral Daily insulin lispro 0-12 Units Subcutaneous TID WC insulin lispro 0-6 Units Subcutaneous Nightly albuterol sulfate HFA 2 puff Inhalation 4x daily And ipratropium 2 puff Inhalation 4x daily montelukast 10 mg Oral Daily tamsulosin 0.4 mg Oral Daily atorvastatin 10 mg Oral Daily amLODIPine 10 mg Oral Daily sodium chloride dextrose hydrALAZINE, zolpidem, sodium chloride, sodium chloride, sodium chloride flush, promethazine ORondansetron, magnesium hydroxide, acetaminophen OR acetaminophen, dextromethorphan, benzonatate, magnesium sulfate, potassium chloride OR potassium alternative oral replacement OR potassium chloride, glucose, dextrose, glucagon (rDNA), dextrose, albuterol sulfate HFA LABS CBC Recent Labs 05/02/20 0425 WBC 24.5* HGB 14.1 HCT 42.4 MCV 84.4 PLT 394 BMP: Lab Results Component Value Date NA 129 05/02/2020 K 4.8 05/02/2020 CL 98 05/02/2020 CO2 21 05/02/2020 BUN 50 05/02/2020 LABALBU 3.1 04/27/2020 CREATININE 1.44 05/02/2020 CALCIUM 8.5 05/02/2020 GFRAA 58 05/02/2020 LABGLOM 48 05/02/2020 ABGs:No results found for: PHART, PO2ART, RLY0NAH No results found for: IFIO2, MODE, SETTIDVOL, SETPEEP Ionized Calcium: No results found for: IONCA Magnesium: Lab Results Component Value Date MG 2.5 05/02/2020 Phosphorus: No results found for: PHOS LIVER PROFILE No results for input(s): AST, ALT, LIPASE, BILIDIR, BILITOT, ALKPHOS in the last 72 hours. Invalid input(s): AMYLASE, ALB INR No results for input(s): INR in the last 72 hours. PTT No results for input(s): APTT in the last 72 hours. BNP No results for input(s): BNP in the last 72 hours. RADIOLOGY (See actual reports for details) ASSESSMENT/PLAN Principal Problem: Pneumonia due to COVID-19 virus Active Problems: NAOMIE (acute kidney injury) (HCC) COPD (chronic obstructive pulmonary disease) (HCC) DM (diabetes mellitus) (HCC) Acute respiratory failure with hypoxia COPD with lower respiratory infection COVID-19 pneumonia Elevated inflammatory markers: Including CRP, LDH, ferritin, but unremarkable D-dimer wean FiO2 as tolerated, adjust position and proning, follow-up chest x-ray in a.m. Bronchodilators Completed remdesivir, dexamethasone day 9, refused plasma , off antibiotic Diuresis IS, flutter valve On heparin subcu Discussed with staff * Giovanni Segal MD - 05/02/2020 4:37 PM EST IN-PATIENT SERVICE [facility] Internal Medicine Progress Note 05/02/2020 4:37 PM Name: Jourdan Arevalo Acct: [id number] Room: IP Day: 9 Admit Date: 04/23/2020 9:54 PM PCP: Dulce Maria Del Castillo MD Code Status: Full Code Subjective: C/C: Chief Complaint Patient presents with Positive For Covid-19 Interval History Status: Improving HPI: This patient is a 74 y.o. Non-/non malewho presents with fever and shortness of breath Positive COVID-19 test on 04/20/2020 Has been feeling progressively short of breath since, started to have fevers Denies chest pain abdominal pain nausea vomiting or diarrhea. Has been taking his inhalers but not helping. History of COPD hypertension hyperlipidemia type 2 diabetes. Review of Systems: Positive for shortness of breath, no cough Denies chest pain or palpitations Denies abdominal pain, diarrhea vomiting Denies any new numbness tremors or weakness. Medications: Allergies: No Known Allergies Current Meds: Scheduled Meds: insulin glargine 15 Units Subcutaneous BID furosemide 20 mg Oral Daily budesonide-formoterol 2 puff Inhalation BID senna 1 tablet Oral BID atenolol 50 mg Oral Daily sodium chloride flush 10 mL Intravenous 2 times per day heparin (porcine) 5,000 Units Subcutaneous 3 times per day dexamethasone 6 mg Oral Daily aspirin 81 mg Oral Daily insulin lispro 0-12 Units Subcutaneous TID WC insulin lispro 0-6 Units Subcutaneous Nightly albuterol sulfate HFA 2 puff Inhalation 4x daily And ipratropium 2 puff Inhalation 4x daily montelukast 10 mg Oral Daily tamsulosin 0.4 mg Oral Daily atorvastatin 10 mg Oral Daily amLODIPine 10 mg Oral Daily Continuous Infusions: sodium chloride dextrose PRN Meds: hydrALAZINE, zolpidem, sodium chloride, sodium chloride, sodium chloride flush, promethazine OR ondansetron, magnesium hydroxide, acetaminophen OR acetaminophen, dextromethorphan, benzonatate, magnesium sulfate, potassium chloride OR potassium alternative oral replacement OR potassium chloride, glucose, dextrose, glucagon (rDNA), dextrose, albuterol sulfate HFA Data: Past Medical History: has a past medical history of Arthritis, Chronic kidney disease, COPD (chronic obstructive pulmonary disease) (HCC), Diabetes mellitus (HCC), Hyperlipidemia, and Hypertension. Social History: reports that he has never smoked. He has never used smokeless tobacco. He reports that he does not drink alcohol or use drugs. Family History: History reviewed. No pertinent family history. Vitals: BP (!) 145/66 Pulse 67 Temp 97.9 F (36.6 C) (Oral) Resp 21 Ht 5' 8 (1.727 m) Wt 188 lb 15 oz (85.7 kg) SpO2 91% BMI 28.73 kg/m Temp (24hrs), Av F (36.7 C), Min:97.8 F (36.6 C), Max:98.2 F (36.8 C) Recent Labs 05/01/20 1122 05/01/20 1629 05/02/20 0752 05/02/20 1214 POCGLU 349* 363* 257* 339* I/O (24Hr): Intake/Output Summary (Last 24 hours) at 05/02/2020 1637 Last data filed at 05/02/2020 1214 Gross per 24 hour Intake 1345 ml Output 875 ml Net 470 ml Labs: Lab Results Component Value Date WBC 24.5 (H) 05/02/2020 HGB 14.1 05/02/2020 HCT 42.4 05/02/2020 MCV 84.4 05/02/2020 PLT 394 05/02/2020 Lab Results Component Value Date NA 129 05/02/2020 K 4.8 05/02/2020 CL 98 05/02/2020 CO2 21 05/02/2020 BUN 50 05/02/2020 CREATININE 1.44 05/02/2020 GLUCOSE 272 05/02/2020 CALCIUM 8.5 05/02/2020 Lab Results Component Value Date/Time SPECIAL NOT REPORTED 05/02/2020 07:29 AM Lab Results Component Value Date/Time CULTURE PENDING 05/02/2020 07:29 AM Radiology: Recent data reviewed Physical Examination: Remainder of examination deferred due to excessive risk conferred by physical examination during a global pandemic due to coronavirus 19, in a setting where local and national supplies of personal protective equipment are depleted. Assessment: Primary Problem Pneumonia due to COVID-19 virus Active Hospital Problems Diagnosis Date Noted NAOMIE (acute kidney injury) ([facility]) [N17.9] 04/24/2020 COPD (chronic obstructive pulmonary disease) ([facility]) [J44.9] 04/24/2020 DM (diabetes mellitus) ([facility]) [E11.9] 04/24/2020 Pneumonia due to COVID-19 virus [U07.1, J12.82] 04/23/2020 DVT prophylaxis: Heparin Plan: 74-year-old male admitted with fever and shortness of breath 1. Pneumonia due to COVID-19 virus pulmonology, ID consulted started on Decadron, Rocephin and azithromycin, will add D-dimer 2. Acute hypoxic respiratory failure as evidenced by subjective shortness of breath and desaturation to 88% on room air 3. COPD continue home inhalers 4. Hyponatremia 130 at presentation, will check urine studies, nephrology consulted 5. NAOMIE on CKD stage IV-creatinine 2.49 at presentation, baseline 1.8 6. Type 2 diabetes with hyperglycemia, HbA1c 10.5 on 12/13/2019, 7.2 this admission, home Metformin and glipizide on hold, will initiate Lantus and sliding scale, blood sugars running high especially with steroids. 7. Hypertension continue home meds, currently controlled 1/3 D-dimer negative Saturating okay on room air 93% Sodium improved at 128, NAOMIE improving, creatinine 2.15 today. Patient on normal saline@50 cc/hr, nephrology following Blood sugars running high since patient on steroids, will increase Lantus Hydrochlorothiazide stopped due to hyponatremia, blood pressure running high will add atenolol. May 02 Taper oxygen as tolerated on 50 percent And 35 litres oxygen resp failure on high flowoxygen pulm input noted remdesivir crp is up to 54 from 20 Poor prognosis Hyponatremia off hctz Recheck in am Hyperglycemia blood sugar over 300 lantus to 15 bid Recent Labs 05/01/20 0419 CRP 6.3* LDH 383* DDIMER 0.86* PROCAL 0.12* FERRITIN 1,030* Giovanni Segal MD 05/02/2020 4:37 PM * Guanakito Baum MD - 05/02/2020 2:26 PM EST [facility] - Infectious diseases evaluation admission date 04/23/2020 reason for consultation: COVID Impression : Current: COVID 19 with possible superimposed bacterial infection Sepsis Acute kidney injury Leukocytosis possible steroid related COPD Diabetes mellitus Recommendations Ceftriaxone 6 days course completed 04/28/2020 Remdesivir 5 days course completed 04/29/2020 Monitor off antibiotics Follow sputum culture Repeat chest x-ray Patient refused convalescent plasma Decadron On subcu heparin Follow CBC, renal function Supportive care Infection Control Recommendations Droplet Plus Precautions History of Present Illness: Initial history: Jourdan Arevalo is a 74 y.o.-year-old male presented to ED for low grade fever, SOB taht worsens with exertion. Denies chest pain, nausea, vomiting, diarrhea, loss of taste/smell. Pt has history of COPD, hypertension and diabetes. Interval changes 05/02/2020 The patient remains on high flow oxygen, WBC 24.5, reported fever, no increased cough or shortness of breath, no vomiting or diarrhea CT Chest 04/25/2019 showed patchy groundglass opacities in the lower lung zones Imagin/1 CXR The patient is rotated to the left on this portable study. There is ill-defined airspace disease in the lateral left lower lung and at both lung bases. There is no pneumothorax or pleural fluid. The heart size is within normal limits. No acute bone finding Ill-defined lateral left lung and bibasilar airspace disease suspicious for multifocal pneumonia, likely an atypical or viral pneumonia. Patient Vitals for the past 8 hrs: BP Temp Temp src Pulse Resp SpO2 05/02/20 1630 66 17 92 % 05/02/20 1600 135/67 97.5 F (36.4 C) 68 17 93 % 05/02/20 1530 69 17 95 % 05/02/20 1500 (!) 145/55 69 21 91 % 05/02/20 1300 67 18 05/02/20 1245 66 19 05/02/20 1230 65 12 (!) 89 % 05/02/20 1215 66 17 91 % 05/02/20 1200 (!) 145/66 97.9 F (36.6 C) Oral 65 20 91 % 05/02/20 1145 65 20 92 % 05/02/20 1130 62 18 91 % I have personally reviewed the past medical history, past surgical history, medications, social history, and family history, and I haveupdated the database accordingly. Allergies: Patient has no known allergies. Review of Systems: Review of Systems HENT: Negative. Eyes: Negative. Respiratory: Positive for cough and shortness of breath. Cardiovascular: Negative. Negative for chest pain. Gastrointestinal: Negative. Genitourinary: Negative. Musculoskeletal: Negative. Skin: Negative. Physical Examination : Remainder of examination deferred due to excessive risk conferred by physical examination during a global pandemic due to coronavirus 19. In a setting where local and national supplies of personal protective equipment are depleted Past Medical History: Past Medical History: Diagnosis Date Arthritis Chronic kidney disease Stage III kidney disease COPD (chronic obstructive pulmonary disease) (HCC) Diabetes mellitus (HCC) Hyperlipidemia Hypertension Past Surgical History: History reviewed. No pertinent surgical history. Medications: insulin glargine 15 Units Subcutaneous BID furosemide 20 mg Oral Daily budesonide-formoterol 2 puff Inhalation BID senna 1 tablet Oral BID atenolol 50 mg Oral Daily sodium chloride flush 10 mL Intravenous 2 times per day heparin (porcine) 5,000 Units Subcutaneous 3 times per day dexamethasone 6 mg Oral Daily aspirin 81 mg Oral Daily insulin lispro 0-12 Units Subcutaneous TID WC insulin lispro 0-6 Units Subcutaneous Nightly albuterol sulfate HFA 2 puff Inhalation 4x daily And ipratropium 2 puff Inhalation 4x daily montelukast 10 mg Oral Daily tamsulosin 0.4 mg Oral Daily atorvastatin 10 mg Oral Daily amLODIPine 10 mg Oral Daily Social History: Social History Socioeconomic History Marital status: Spouse name: Not on file Number of children: Not on file Years of education: Not on file Highest education level: Not on file Occupational History Not on file Social Needs Financial resource strain: Not on file Food insecurity Worry: Not on file Inability: Not on file Transportation needs Medical: Not on file Non-medical: Not on file Tobacco Use Smoking status: Never Smoker Smokeless tobacco: Never Used Substance and Sexual Activity Alcohol use: No Drug use: No Sexual activity: Not on file Lifestyle Physical activity Days per week: Not on file Minutes per session: Not on file Stress: Not on file Relationships Social connections Talks on phone: Not on file Gets together: Not on file Attends jew service: Not on file Active member of club or organization: Not on file Attends meetings of clubs or organizations: Not on file Relationship status: Not on file Intimate partner violence Fear of current or ex partner: Not on file Emotionally abused: Not on file Physically abused: Not on file Forced sexual activity: Not on file Other Topics Concern Not on file Social History Narrative Not on file Family History: History reviewed. No pertinent family history. Medical Decision Making: I have independently reviewed/ordered the following labs: CBC with Differential: Recent Labs 05/01/2041805/02/20424 WBC 17.6* 24.5* HGB 14.1 14.1 HCT 40.7* 42.4 PLT 347 394 BMP: Recent Labs 05/01/2041805/02/20424 NA 131* 129* K 4.8 4.8 CL 101 98 CO2 20 21 BUN 48* 50* CREATININE 1.41* 1.44* MG 2.2 2.5 Hepatic Function Panel: No results for input(s): PROT, LABALBU, BILIDIR, IBILI, BILITOT, ALKPHOS, ALT, AST in the last 72 hours. No results for input(s): RPR in the last 72 hours. No results for input(s): HIV in the last 72 hours. No results for input(s): BC in the last 72 hours. Lab Results Component Value Date CREATININE 1.44 05/02/2020 GLUCOSE 272 05/02/2020 Detailed results: Thank you for allowing us to participate in the care of this patient.Please call with questions. This note is created with the assistance of a speech recognition program. While intending to generate adocument that actually reflects the content of the visit, the document can still have some errors including those of syntax and sound a like substitutions which may escape proof reading. It such instances, actual meaningcan be extrapolated by contextual diversion. Guanakito Baum MD Office: [facility] / office [phone] * Julienne Estrada RCP - 05/02/2020 8:27 AM EST Pt remains on vapotherm, appears to be tolerating well. Current SpO2 92% * Vince Vazquez MD - 05/02/2020 8:01 AM EST NEPHROLOGY PROGRESS NOTE Patient : Jourdan Arevalo; 74 y.o. Location: Attending: Kip Gil MD Admit Date: 04/23/2020 Hospital Day: 9 Interval history: Events of the past 24 hours were reviewed with the critical care nursing staff. Patient was not seen by [id number] encounter due to COVID- 19 respiratory isolation status. He remains on high flow oxygen and is hemodynamically stable. He is nonoliguric.. History of Present Illness: This is a 74 y.o. male with past medical history of type 2 diabetes, essential hypertension, CKD stage III with baseline creatinine of about 1.8 mg/dL, he follows up with [facility] in [place], no recent outpatient labs available, his last labs before this hospitalization was in 2011 and his creatinine at that time was 1.8 mg/dL. She admitted with complaints of cough fatigue shortness of breath that started a weeks ago, tested positive for Covid, and admitted for COVID-19 pneumonia Labs showed serum creatinine of 2.3 mg/dL on admission and therefore nephrology consultation has been requested Objective: CURRENT TEMPERATURE: Temp: 98 F (36.7 C) MAXIMUM TEMPERATURE OVER 24HRS: Temp (24hrs), Av.9 F (36.6 C), Min:97.7 F (36.5 C), Max:98 F (36.7 C) CURRENT RESPIRATORY RATE: Resp: 11 CURRENT PULSE: Pulse: 61 CURRENT BLOOD PRESSURE: BP: (!) 158/71 24HR BLOOD PRESSURE RANGE: Systolic (24hrs), Av , Min:121 , Max:158 ; Diastolic (24hrs), Av, Min:59, Max:101 24HR INTAKE/OUTPUT: Intake/Output Summary (Last 24 hours) at 05/02/2020 0801 Last data filed at 05/02/2020 0500 Gross per 24 hour Intake 1460 ml Output 2175 ml Net -715 ml Patient Vitals for the past 96 hrs (Last 3 readings): Weight 05/02/20 0600 188 lb 15 oz (85.7 kg) 04/29/20 0400 192 lb 14.4 oz (87.5 kg) Physical Exam: Remainder of the examExcessive risk deferred due to excessive risk conferred by bedside physical exam during a global SARS Cov 2/COVID 19 pandemic, in a setting where local and national supplies of personal protective equipment are depleted. Labs: CBC: Recent Labs 04/30/20 0502 05/01/2041805/02/20 0425 WBC 15.9* 17.6* 24.5* RBC 4.77 4.85 5.02 HGB 13.8 14.1 14.1 HCT 39.9* 40.7* 42.4 MCV 83.7 84.0 84.4 MCH 29.0 29.1 28.1 MCHC 34.6 34.7 33.3 RDW 13.0 13.3 12.9 PLT 344 347 394 MPV 9.0 9.2 9.2 BMP: Recent Labs 04/30/20 0502 05/01/2041805/02/20 0425 NA 132* 131* 129* K 4.5 4.8 4.8 CL 99 101 98 CO2 20 20 21 BUN 48* 48* 50* CREATININE 1.62* 1.41* 1.44* GLUCOSE 228* 265* 272* CALCIUM 8.6 8.4* 8.5* Magnesium: Recent Labs 04/30/20 0502 05/01/2041805/02/20 0425 MG 2.3 2.2 2.5 Radiology: Chest x-ray Ill-defined lateral left lung and bibasilar airspace disease suspicious for multifocal pneumonia, likely an atypical or viral pneumonia. Assessment/plan: 1. Acute kidney injury superimposed on chronic kidney disease stage III [baseline serum creatinine 1.8 mg/dL] - most consistent with prerenal azotemia. Renal function is stable and patient is on furosemide 20 mg daily to maintain slight negative fluid balance.. Monitor urine output closely. Basic metabolic profile daily. 2. Hyponatremia - Multifactorial etiology and partly secondary to thiazide diuretic as well as to hyperglycemia. Serum sodium corrected for hyperglycemia is 133 mmol/L. Optimize glycemic control. Check serum osmolality. 3. COVID-19 pneumonia - On dexamethasone. 4. Systemic hypertension - Continue amlodipine 10 mg p.o. daily and atenolol 50 mg p.o. daily and repeat blood pressure after medications. Continue IV hydralazine 10 mg q. 6 hourly for systolic blood pressure greater than 160. Prognosis is guarded. * Miroslava Arredondo RN - 05/02/2020 6:38 AM EST RN spoke with , Sharon and updated on pt's condition. RN updated that pt had slept well through the night but had some mid to right chest pain at 0400 which RN administered albuterol with pt's wheezing on left side. This produced a cough with sputum that was collected and sent to the lab. Pt's had no further questions. * Wei Bermudez MD - 05/01/2020 7:35 PM EST Pulmonary Progress Note [facility] Patient - Jourdan Arevalo, Age - 74 y.o. - 1945 [id number] Date of Admission - 04/23/2020 9:54 PM Consulting Service/Physician Consulting - Kip Gil MD Primary Care Physician - Dulce Maria Del Castillo MD Follow-up: Acute respiratory failure SUBJECTIVE Feeling better, on high flow nasal cannula 35 L and 50% FiO2 Decreased short of breath, and cough, no wheezing No chest pain, fever or chills No nausea vomiting or diarrhea OBJECTIVE VITALS height is 5' 8 (1.727 m) and weight is 192 lb 14.4 oz (87.5 kg). His oral temperature is 97.8 F (36.6 C). His blood pressure is 132/68 and his pulse is 69. His respiration is 21 and oxygen saturation is 91%. Body mass index is 29.33 kg/m . Temperature Range: Temp: 97.8 F (36.6 C) Temp Av F (36.7 C) Min: 97.7 F (36.5 C) Max: 98.4 F (36.9 C) BP Range: Systolic (24hrs), Av , Min:121 , Max:172 Diastolic (24hrs), Av, Min:52, Max:81 Pulse Range: Pulse Av.4 Min: 60 Max: 89 Respiration Range: Resp Av.1 Min: 7 Max: 23 Current Pulse Ox:: SpO2: 91 % 24HR Pulse Ox Range: SpO2 Av.5 % Min: 84 % Max: 97 % Oxygen Amount and Delivery: O2 Flow Rate (L/min): 35 L/min Wt Readings from Last 3 Encounters: 04/29/20 192 lb 14.4 oz (87.5 kg) I/O (24 Hours) Intake/Output Summary (Last 24 hours) at 05/01/2020 193 Last data filed at 05/01/2020 1630 Gross per 24 hour Intake 1310 ml Output 3600 ml Net -2290 ml EXAM General Appearance Awake, alert, in no acute distress HEENT - normocephalic, atraumatic. Neck -no JVD, trachea midline Lungs -crepitations left base, decreased sounds, no wheezing, no distress Cardiovascular - Heart sounds are normal. Regular rate and rhythm Abdomen - Soft, nontender, nondistended, no guarding Neurologic -appropriate, following commands, Skin - No bruising or bleeding Extremities - No clubbing, cyanosis, edema MEDS insulin glargine 15 Units Subcutaneous BID furosemide 20 mg Oral Daily budesonide-formoterol 2 puff Inhalation BID senna 1 tablet Oral BID atenolol 50 mg Oral Daily sodium chloride flush 10 mL Intravenous 2 times per day heparin (porcine) 5,000 Units Subcutaneous 3 times per day dexamethasone 6 mg Oral Daily aspirin 81 mg Oral Daily insulin lispro 0-12 Units Subcutaneous TID WC insulin lispro 0-6 Units Subcutaneous Nightly albuterol sulfate HFA 2 puff Inhalation 4x daily And ipratropium 2 puff Inhalation 4x daily montelukast 10 mg Oral Daily tamsulosin 0.4 mg Oral Daily atorvastatin 10 mg Oral Daily amLODIPine 10 mg Oral Daily sodium chloride dextrose hydrALAZINE, zolpidem, sodium chloride, sodium chloride, sodium chloride flush, promethazine ORondansetron, magnesium hydroxide, acetaminophen OR acetaminophen, dextromethorphan, benzonatate, magnesium sulfate, potassium chloride OR potassium alternative oral replacement OR potassium chloride, glucose, dextrose, glucagon (rDNA), dextrose, albuterol sulfate HFA LABS CBC Recent Labs 05/01/20 0419 WBC 17.6* HGB 14.1 HCT 40.7* MCV 84.0 PLT 347 BMP: Lab Results Component Value Date NA 131 05/01/2020 K 4.8 05/01/2020 CL 101 05/01/2020 CO2 20 05/01/2020 BUN 48 05/01/2020 LABALBU 3.1 04/27/2020 CREATININE 1.41 05/01/2020 CALCIUM 8.4 05/01/2020 GFRAA 59 05/01/2020 LABGLOM 49 05/01/2020 ABGs:No results found for: PHART, PO2ART, [id number] No results found for: IFIO2, MODE, SETTIDVOL, SETPEEP Ionized Calcium: No results found for: IONCA Magnesium: Lab Results Component Value Date MG 2.2 05/01/2020 Phosphorus: No results found for: PHOS LIVER PROFILE No results for input(s): AST, ALT, LIPASE, BILIDIR, BILITOT, ALKPHOS in the last 72 hours. Invalid input(s): AMYLASE, ALB INR No results for input(s): INR in the last 72 hours. PTT No results for input(s): APTT in the last 72 hours. BNP No results for input(s): BNP in the last 72 hours. RADIOLOGY (See actual reports for details) ASSESSMENT/PLAN Principal Problem: Pneumonia due to COVID-19 virus Active Problems: NAOMIE (acute kidney injury) (HCC) COPD (chronic obstructive pulmonary disease) (HCC) DM (diabetes mellitus) (HCC) Acute respiratory failure with hypoxia COPD with lower respiratory infection COVID-19 pneumonia Elevated inflammatory markers: Including CRP, LDH, ferritin, but unremarkable D-dimer wean FiO2 as tolerated, adjust position and proning Bronchodilators Completed remdesivir, dexamethasone day 8, refused plasma , off antibiotic as per ID Diuresis IS, flutter valve On heparin subcu * Giovanni Segal MD - 05/01/2020 4:27 PM EST IN-PATIENT SERVICE [facility] Internal Medicine Progress Note 05/01/2020 4:27 PM Name: Jourdan Arevalo Acct: [id number] Room: IP Day: 8 Admit Date: 04/23/2020 9:54 PM PCP: Dulce Maria Del Castillo MD Code Status: Full Code Subjective: C/C: Chief Complaint Patient presents with Positive For Covid-19 Interval History Status: Improving HPI: This patient is a 74 y.o. Non-/non malewho presents with fever and shortness of breath Positive COVID-19 test on 04/20/2020 Has been feeling progressively short of breath since, started to have fevers Denies chest pain abdominal pain nausea vomiting or diarrhea. Has been taking his inhalers but not helping. History of COPD hypertension hyperlipidemia type 2 diabetes. Review of Systems: Positive for shortness of breath, no cough Denies chest pain or palpitations Denies abdominal pain, diarrhea vomiting Denies any new numbness tremors or weakness. Medications: Allergies: No Known Allergies Current Meds: Scheduled Meds: furosemide 20 mg Oral Daily budesonide-formoterol 2 puff Inhalation BID senna 1 tablet Oral BID insulin glargine 10 Units Subcutaneous BID atenolol 50 mg Oral Daily sodium chloride flush 10 mL Intravenous 2 times per day heparin (porcine) 5,000 Units Subcutaneous 3 times per day dexamethasone 6 mg Oral Daily aspirin 81 mg Oral Daily insulin lispro 0-12 Units Subcutaneous TID WC insulin lispro 0-6 Units Subcutaneous Nightly albuterol sulfate HFA 2 puff Inhalation 4x daily And ipratropium 2 puff Inhalation 4x daily montelukast 10 mg Oral Daily tamsulosin 0.4 mg Oral Daily atorvastatin 10 mg Oral Daily amLODIPine 10 mg Oral Daily Continuous Infusions: sodium chloride dextrose PRN Meds: hydrALAZINE, zolpidem, sodium chloride, sodium chloride, sodium chloride flush, promethazine OR ondansetron, magnesium hydroxide, acetaminophen OR acetaminophen, dextromethorphan, benzonatate, magnesium sulfate, potassium chloride OR potassium alternative oral replacement OR potassium chloride, glucose, dextrose, glucagon (rDNA), dextrose, albuterol sulfate HFA Data: Past Medical History: has a past medical history of Arthritis, Chronic kidney disease, COPD (chronic obstructive pulmonary disease) (HCC), Diabetes mellitus (HCC), Hyperlipidemia, and Hypertension. Social History: reports that he has never smoked. He has never used smokeless tobacco. He reports that he does not drink alcohol or use drugs. Family History: History reviewed. No pertinent family history. Vitals: BP (!) 153/72 Pulse 71 Temp 97.9 F (36.6 C) (Oral) Resp 15 Ht 5' 8 (1.727 m) Wt 192 lb 14.4 oz (87.5 kg) SpO2 91% BMI 29.33 kg/m Temp (24hrs), Av.1 F (36.7 C), Min:97.7 F (36.5 C), Max:98.4 F (36.9 C) Recent Labs 04/30/20 1134 04/30/20 1720 04/30/20202205/01/20 1122 POCGLU 272* 337* 363* 349* I/O (24Hr): Intake/Output Summary (Last 24 hours) at 05/01/2020 1627 Last data filed at 05/01/2020 1245 Gross per 24 hour Intake 955 ml Output 3300 ml Net -2345 ml Labs: Lab Results Component Value Date WBC 17.6 (H) 05/01/2020 HGB 14.1 05/01/2020 HCT 40.7 (L) 05/01/2020 MCV 84.0 05/01/2020 PLT 347 05/01/2020 Lab Results Component Value Date NA 131 05/01/2020 K 4.8 05/01/2020 CL 101 05/01/2020 CO2 20 05/01/2020 BUN 48 05/01/2020 CREATININE 1.41 05/01/2020 GLUCOSE 265 05/01/2020 CALCIUM 8.4 05/01/2020 Lab Results Component Value Date/Time SPECIAL RAC 04/15/2012 12:36 AM SPECIAL NOT REPORTED 04/15/2012 12:36 AM SPECIAL NOT REPORTED 04/15/2012 12:36 AM SPECIAL NOT REPORTED 04/15/2012 12:36 AM Lab Results Component Value Date/Time CULTURE NO GROWTH 5 DAYS 04/15/2012 12:36 AM CULTURE 04/15/2012 12:36 AM Performed at [address] [place] [address] CULTURE 04/15/2012 12:36 AM CULTURE NO GROUP A BETA HEMOLYTIC STREPTOCOCCUS ISOLATED 04/15/2012 12:36 AM CULTURE 04/15/2012 12:36 AM Performed at [address] [place] [address] CULTURE 04/15/2012 12:36 AM Radiology: Recent data reviewed Physical Examination: Remainder of examination deferred due to excessive risk conferred by physical examination during a global pandemic due to coronavirus 19, in a setting where local and national supplies of personal protective equipment are depleted. Assessment: Primary Problem Pneumonia due to COVID-19 virus Active Hospital Problems Diagnosis Date Noted NAOMIE (acute kidney injury) ([facility]) [N17.9] 04/24/2020 COPD (chronic obstructive pulmonary disease) ([facility]) [J44.9] 04/24/2020 DM (diabetes mellitus) ([facility]) [E11.9] 04/24/2020 Pneumonia due to COVID-19 virus [U07.1, J12.82] 04/23/2020 DVT prophylaxis: Heparin Plan: 74-year-old male admitted with fever and shortness of breath 1. Pneumonia due to COVID-19 virus pulmonology, ID consulted started on Decadron, Rocephin and azithromycin, will add D-dimer 2. Acute hypoxic respiratory failure as evidenced by subjective shortness of breath and desaturation to 88% on room air 3. COPD continue home inhalers 4. Hyponatremia 130 at presentation, will check urine studies, nephrology consulted 5. NAOMIE on CKD stage IV-creatinine 2.49 at presentation, baseline 1.8 6. Type 2 diabetes with hyperglycemia, HbA1c 10.5 on 12/13/2019, 7.2 this admission, home Metformin and glipizide on hold, will initiate Lantus and sliding scale, blood sugars running high especially with steroids. 7. Hypertension continue home meds, currently controlled 1/3 D-dimer negative Saturating okay on room air 93% Sodium improved at 128, NAOMIE improving, creatinine 2.15 today. Patient on normal saline@50 cc/hr, nephrology following Blood sugars running high since patient on steroids, will increase Lantus Hydrochlorothiazide stopped due to hyponatremia, blood pressure running high will add atenolol. May 01 Taper oxygen as tolerated resp failure on high flowoxygen pulm input noted remdesivir crp is up to 54 from 20 Poor prognosis Hyponatremia off hctz Recheck in am Hyperglycemia blood sugar over 300 lantus to 15 bid Recent Labs 05/01/20 0419 CRP 6.3* LDH 383* DDIMER 0.86* PROCAL 0.12* FERRITIN 1,030* Giovanni Segal MD 05/01/2020 4:27 PM * Guanakito Baum MD - 05/01/2020 11:03 AM EST [facility] - Infectious diseases evaluation admission date 04/23/2020 reason for consultation: COVID Impression : Current: COVID 19 with possible superimposed bacterial infection Sepsis Acute kidney injury Leukocytosis possible steroid related COPD Diabetes mellitus Recommendations Ceftriaxone 6 days course completed 04/28/2020 Remdesivir 5 days course completed 04/29/2020 Patient refused convalescent plasma Decadron day 9 On subcu heparin Follow CBC, renal function Supportive care Discussed with nursing staff Infection Control Recommendations Droplet Plus Precautions History of Present Illness: Initial history: Jourdan Arevalo is a 74 y.o.-year-old male presented to ED for low grade fever, SOB taht worsens with exertion. Denies chest pain, nausea, vomiting, diarrhea, loss of taste/smell. Pt has history of COPD, hypertension and diabetes. Interval changes 05/01/2020 The patient remains on high flow oxygen, improving, less shortness of breath and cough, no reportedfever or diarrhea, no reported vomiting, no new complaints CT Chest 04/25/2019 showed patchy groundglass opacities in the lower lung zones Afebrile for more than 72 hours. T-max 101.1 on 04/26/2020 WBC 15.9, creatinine 1.62 04/28/2020 ferritin 1111, C-reactive protein 29, LD 366, procalcitonin 0.16 Chest x-ray from earlier today showed slight progression of multifocal airspace disease left more than right Imagin/1 CXR The patient is rotated to the left on this portable study. There is ill-defined airspace disease in the lateral left lower lung and at both lung bases. There is no pneumothorax or pleural fluid. The heart size is within normal limits. No acute bone finding Ill-defined lateral left lung and bibasilar airspace disease suspicious for multifocal pneumonia, likely an atypical or viral pneumonia. Patient Vitals for the past 8 hrs: BP Temp Temp src Pulse Resp SpO2 05/01/20 1930 21 91 % 05/01/20 1900 132/68 69 19 90 % 05/01/20 1800 138/65 66 20 91 % 05/01/20 1652 19 91 % 05/01/20 1630 121/65 97.8 F (36.6 C) Oral 05/01/20 1245 (!) 153/72 97.9 F (36.6 C) Oral I have personally reviewed the past medical history, past surgical history, medications, social history, and family history, and I haveupdated the database accordingly. Allergies: Patient has no known allergies. Review of Systems: Review of Systems Constitutional: Positive for fever. HENT: Negative. Eyes: Negative. Respiratory: Positive for cough and shortness of breath. Cardiovascular: Negative. Negative for chest pain. Gastrointestinal: Negative. Genitourinary: Negative. Musculoskeletal: Negative. Skin: Negative. Physical Examination : Remainder of examination deferred due to excessive risk conferred by physical examination during a global pandemic due to coronavirus 19. In a setting where local and national supplies of personal protective equipment are depleted Past Medical History: Past Medical History: Diagnosis Date Arthritis Chronic kidney disease Stage III kidney disease COPD (chronic obstructive pulmonary disease) (HCC) Diabetes mellitus (HCC) Hyperlipidemia Hypertension Past Surgical History: History reviewed. No pertinent surgical history. Medications: insulin glargine 15 Units Subcutaneous BID furosemide 20 mg Oral Daily budesonide-formoterol 2 puff Inhalation BID senna 1 tablet Oral BID atenolol 50 mg Oral Daily sodium chloride flush 10 mL Intravenous 2 times per day heparin (porcine) 5,000 Units Subcutaneous 3 times per day dexamethasone 6 mg Oral Daily aspirin 81 mg Oral Daily insulin lispro 0-12 Units Subcutaneous TID WC insulin lispro 0-6 Units Subcutaneous Nightly albuterol sulfate HFA 2 puff Inhalation 4x daily And ipratropium 2 puff Inhalation 4x daily montelukast 10 mg Oral Daily tamsulosin 0.4 mg Oral Daily atorvastatin 10 mg Oral Daily amLODIPine 10 mg Oral Daily Social History: Social History Socioeconomic History Marital status: Spouse name: Not on file Number of children: Not on file Years of education: Not on file Highest education level: Not on file Occupational History Not on file Social Needs Financial resource strain: Not on file Food insecurity Worry: Not on file Inability: Not on file Transportation needs Medical: Not on file Non-medical: Not on file Tobacco Use Smoking status: Never Smoker Smokeless tobacco: Never Used Substance and Sexual Activity Alcohol use: No Drug use: No Sexual activity: Not on file Lifestyle Physical activity Days per week: Not on file Minutes per session: Not on file Stress: Not on file Relationships Social connections Talks on phone: Not on file Gets together: Not on file Attends jew service: Not on file Active member of club or organization: Not on file Attends meetings of clubs or organizations: Not on file Relationship status: Not on file Intimate partner violence Fear of current or ex partner: Not on file Emotionally abused: Not on file Physically abused: Not on file Forced sexual activity: Not on file Other Topics Concern Not on file Social History Narrative Not on file Family History: History reviewed. No pertinent family history. Medical Decision Making: I have independently reviewed/ordered the following labs: CBC with Differential: Recent Labs 04/30/20 0502 05/01/20 0419 WBC 15.9* 17.6* HGB 13.8 14.1 HCT 39.9* 40.7* PLT 344 347 BMP: Recent Labs 04/30/20 0502 05/01/20 0419 NA 132* 131* K 4.5 4.8 CL 99 101 CO2 20 20 BUN 48* 48* CREATININE 1.62* 1.41* MG 2.3 2.2 Hepatic Function Panel: No results for input(s): PROT, LABALBU, BILIDIR, IBILI, BILITOT, ALKPHOS, ALT, AST in the last 72 hours. No results for input(s): RPR in the last 72 hours. No results for input(s): HIV in the last 72 hours. No results for input(s): BC in the last 72 hours. Lab Results Component Value Date CREATININE 1.41 05/01/2020 GLUCOSE 265 05/01/2020 Detailed results: Thank you for allowing us to participate in the care of this patient.Please call with questions. This note is created with the assistance of a speech recognition program. While intending to generate adocument that actually reflects the content of the visit, the document can still have some errors including those of syntax and sound a like substitutions which may escape proof reading. It such instances, actual meaningcan be extrapolated by contextual diversion. Guanakito Baum MD Office: [facility] / office [phone] * Vince Vazquez MD - 05/01/2020 7:32 AM EST NEPHROLOGY PROGRESS NOTE Patient : Jourdan Arevalo; 74 y.o. Location: Attending: Kip Gil MD Admit Date: 04/23/2020 Hospital Day: 8 Interval history: Events of the past 24 hours were reviewed with the critical care nursing staff. Patient was not seen by [id number] encounter due to COVID- 19 respiratory isolation status. He remains on high flow oxygen and is being evaluated for LTAC discharge. He is nonoliguric and hemodynamically stable. History of Present Illness: This is a 74 y.o. male with past medical history of type 2 diabetes, essential hypertension, CKD stage III with baseline creatinine of about 1.8 mg/dL, he follows up with [facility] in [place], no recent outpatient labs available, his last labs before this hospitalization was in 2011 and his creatinine at that time was 1.8 mg/dL. She admitted with complaints of cough fatigue shortness of breath that started a weeks ago, tested positive for Covid, and admitted for COVID-19 pneumonia Labs showed serum creatinine of 2.3 mg/dL on admission and therefore nephrology consultation has been requested Objective: CURRENT TEMPERATURE: Temp: 98.1 F (36.7 C) MAXIMUM TEMPERATURE OVER 24HRS: Temp (24hrs), Av.1 F (36.7 C), Min:97.5 F (36.4 C), Max:98.4 F (36.9 C) CURRENT RESPIRATORY RATE: Resp: 22 CURRENT PULSE: Pulse: 71 CURRENT BLOOD PRESSURE: BP: (!) 167/78 24HR BLOOD PRESSURE RANGE: Systolic (24hrs), Av , Min:128 , Max:172 ; Diastolic (24hrs), Av, Min:52, Max:81 24HR INTAKE/OUTPUT: Intake/Output Summary (Last 24 hours) at 05/01/2020 0732 Last data filed at 05/01/2020 0600 Gross per 24 hour Intake 900 ml Output 2911 ml Net -2011 ml Patient Vitals for the past 96 hrs (Last 3 readings): Weight 04/29/20 0400 192 lb 14.4 oz (87.5 kg) 04/28/20 0558 191 lb 9.3 oz (86.9 kg) Physical Exam: Remainder of the examExcessive risk deferred due to excessive risk conferred by bedside physical exam during a global SARS Cov 2/COVID 19 pandemic, in a setting where local and national supplies of personal protective equipment are depleted. Labs: CBC: Recent Labs 04/29/2044804/30/20 05005/01/20418 WBC 13.3* 15.9* 17.6* RBC 5.08 4.77 4.85 HGB 14.4 13.8 14.1 HCT 42.4 39.9* 40.7* MCV 83.5 83.7 84.0 MCH 28.4 29.0 29.1 MCHC 34.0 34.6 34.7 RDW 12.9 13.0 13.3 PLT 302 344 347 MPV 9.2 9.0 9.2 BMP: Recent Labs 04/29/2044804/29/20 1104 04/30/20 05005/01/20418 NA 135 126* 132* 131* K 4.4 -- 4.5 4.8 CL 105 -- 99 101 CO2 19* -- 20 20 BUN 47* -- 48* 48* CREATININE 1.51* -- 1.62* 1.41* GLUCOSE 206* -- 228* 265* CALCIUM 8.6 -- 8.6 8.4* Magnesium: Recent Labs 04/29/2044804/30/20 0502 01/09/21 0419 MG 2.4 2.3 2.2 Radiology: Chest x-ray Ill-defined lateral left lung and bibasilar airspace disease suspicious for multifocal pneumonia, likely an atypical or viral pneumonia. Assessment/plan: 1. Acute kidney injury superimposed on chronic kidney disease stage III [baseline serum creatinine 1.8 mg/dL] - most consistent with prerenal azotemia. Renal function is stable and patient is on furosemide 20 mg daily to maintain slight negative fluid balance.. 2. Hyponatremia - hypoosmolar and hypovolemic secondary to thiazide diuretic use. Thiazide diuretichas been placed on hold. 3. COVID-19 pneumonia. 4. Systemic hypertension - Blood pressure control is suboptimal. Continue amlodipine 10 mg p.o. daily and atenolol 50 mg p.o. daily and repeat blood pressure after medications. Continue IV hydralazine 10 mg q. 6 hourly for systolic blood pressure greater than 160. Prognosis is guarded. * Carin Liu RN - 04/30/2020 4:46 PM EST Rn updated Patients Sharon, and answered all of her questions. * Giovanni Segal MD - 04/30/2020 4:11 PM EST IN-PATIENT SERVICE [facility] Internal Medicine Progress Note 04/30/2020 4:11 PM Name: Jourdan Arevalo Acct: [id number] Room: IP Day: 7 Admit Date: 04/23/2020 9:54 PM PCP: Dulce Maria Del Castillo MD Code Status: Full Code Subjective: C/C: Chief Complaint Patient presents with Positive For Covid-19 Interval History Status: Improving HPI: This patient is a 74 y.o. Non-/non malewho presents with fever and shortness of breath Positive COVID-19 test on 04/20/2020 Has been feeling progressively short of breath since, started to have fevers Denies chest pain abdominal pain nausea vomiting or diarrhea. Has been taking his inhalers but not helping. History of COPD hypertension hyperlipidemia type 2 diabetes. Review of Systems: Positive for shortness of breath, no cough Denies chest pain or palpitations Denies abdominal pain, diarrhea vomiting Denies any new numbness tremors or weakness. Medications: Allergies: No Known Allergies Current Meds: Scheduled Meds: furosemide 20 mg Oral Daily budesonide-formoterol 2 puff Inhalation BID senna 1 tablet Oral BID insulin glargine 10 Units Subcutaneous BID atenolol 50 mg Oral Daily sodium chloride flush 10 mL Intravenous 2 times per day heparin (porcine) 5,000 Units Subcutaneous 3 times per day dexamethasone 6 mg Oral Daily aspirin 81 mg Oral Daily insulin lispro 0-12 Units Subcutaneous TID WC insulin lispro 0-6 Units Subcutaneous Nightly albuterol sulfate HFA 2 puff Inhalation 4x daily And ipratropium 2 puff Inhalation 4x daily montelukast 10 mg Oral Daily tamsulosin 0.4 mg Oral Daily atorvastatin 10 mg Oral Daily amLODIPine 10 mg Oral Daily Continuous Infusions: sodium chloride dextrose PRN Meds: hydrALAZINE, zolpidem, sodium chloride, sodium chloride, sodium chloride flush, promethazine OR ondansetron, magnesium hydroxide, acetaminophen OR acetaminophen, dextromethorphan, benzonatate, magnesium sulfate, potassium chloride OR potassium alternative oral replacement OR potassium chloride, glucose, dextrose, glucagon (rDNA), dextrose, albuterol sulfate HFA Data: Past Medical History: has a past medical history of Arthritis, Chronic kidney disease, COPD (chronic obstructive pulmonary disease) (HCC), Diabetes mellitus (HCC), Hyperlipidemia, and Hypertension. Social History: reports that he has never smoked. He has never used smokeless tobacco. He reports that he does not drink alcohol or use drugs. Family History: History reviewed. No pertinent family history. Vitals: BP (!) 153/74 Pulse 66 Temp 98 F (36.7 C) Resp 18 Ht 5' 8 (1.727 m) Wt 192 lb 14.4 oz (87.5 kg) SpO2 (!) 87% BMI 29.33 kg/m Temp (24hrs), Av.8 F (36.6 C), Min:97.3 F (36.3 C), Max:98.4 F (36.9 C) Recent Labs 04/29/20 1636 04/29/20 1949 04/30/20 0717 04/30/20 1134 POCGLU 198* 347* 217* 272* I/O (24Hr): Intake/Output Summary (Last 24 hours) at 04/30/2020 1611 Last data filed at 04/30/2020 1230 Gross per 24 hour Intake 600 ml Output 2211 ml Net -1611 ml Labs: Lab Results Component Value Date WBC 15.9 (H) 04/30/2020 HGB 13.8 04/30/2020 HCT 39.9 (L) 04/30/2020 MCV 83.7 04/30/2020 PLT 344 04/30/2020 Lab Results Component Value Date NA 132 04/30/2020 K 4.5 04/30/2020 CL 99 04/30/2020 CO2 20 04/30/2020 BUN 48 04/30/2020 CREATININE 1.62 04/30/2020 GLUCOSE 228 04/30/2020 CALCIUM 8.6 04/30/2020 Lab Results Component Value Date/Time SPECIAL RAC 04/15/2012 12:36 AM SPECIAL NOT REPORTED 04/15/2012 12:36 AM SPECIAL NOT REPORTED 04/15/2012 12:36 AM SPECIAL NOT REPORTED 04/15/2012 12:36 AM Lab Results Component Value Date/Time CULTURE NO GROWTH 5 DAYS 04/15/2012 12:36 AM CULTURE 04/15/2012 12:36 AM Performed at [address] [place] [id number] CULTURE 04/15/2012 12:36 AM CULTURE NO GROUP A BETA HEMOLYTIC STREPTOCOCCUS ISOLATED 04/15/2012 12:36 AM CULTURE 04/15/2012 12:36 AM Performed at [address] [place] [id number] CULTURE 04/15/2012 12:36 AM Radiology: Recent data reviewed Physical Examination: Remainder of examination deferred due to excessive risk conferred by physical examination during a global pandemic due to coronavirus 19, in a setting where local and national supplies of personal protective equipment are depleted. Assessment: Primary Problem Pneumonia due to COVID-19 virus Active Hospital Problems Diagnosis Date Noted NAOMIE (acute kidney injury) ([facility]) [N17.9] 04/24/2020 COPD (chronic obstructive pulmonary disease) ([facility]) [J44.9] 04/24/2020 DM (diabetes mellitus) ([facility]) [E11.9] 04/24/2020 Pneumonia due to COVID-19 virus [U07.1, J12.82] 04/23/2020 DVT prophylaxis: Heparin Plan: 74-year-old male admitted with fever and shortness of breath 1. Pneumonia due to COVID-19 virus pulmonology, ID consulted started on Decadron, Rocephin and azithromycin, will add D-dimer 2. Acute hypoxic respiratory failure as evidenced by subjective shortness of breath and desaturation to 88% on room air 3. COPD continue home inhalers 4. Hyponatremia 130 at presentation, will check urine studies, nephrology consulted 5. NAOMIE on CKD stage IV-creatinine 2.49 at presentation, baseline 1.8 6. Type 2 diabetes with hyperglycemia, HbA1c 10.5 on 12/13/2019, 7.2 this admission, home Metformin and glipizide on hold, will initiate Lantus and sliding scale, blood sugars running high especially with steroids. 7. Hypertension continue home meds, currently controlled 1/3 D-dimer negative Saturating okay on room air 93% Sodium improved at 128, NAOMIE improving, creatinine 2.15 today. Patient on normal saline@50 cc/hr, nephrology following Blood sugars running high since patient on steroids, will increase Lantus Hydrochlorothiazide stopped due to hyponatremia, blood pressure running high will add atenolol. Apr 30 Taper oxygen as tolerated resp failure on high flowoxygen pulm input noted remdesivir crp is up to 54 from 20 Poor prognosis Hyponatremia off hctz Recheck in am 128 today Hyperglycemia blood sugar over 300 Change lantus to 10 bid from 15 daily Recent Labs 04/28/20 0416 CRP 29.1* LDH 366* PROCAL 0.16* FERRITIN 1,111* Giovanni Segal MD 04/30/2020 4:11 PM * Isela Winston, CHISEL GRINDER - 04/30/2020 4:10 PM EST Physical Therapy DATE: 04/30/2020 NAME: Jourdan Arevalo : 1945 Patient not seen this date for Physical Therapy due to: [] Blood transfusion in progress [] Cancel by RN [] Hemodialysis [] Refusal by Patient [] Spine Precautions [] Strict Bedrest [] Surgery [] Testing [x] Other Planning for DC to [facility]. Per nursing. [] PT being discontinued at this time. Patient independent. No further needs. [] PT being discontinued at this time as the patient has been transferred to hospice care. No further needs. Isela Winston, CHISEL GRINDER * Greta Lobo RD, LD - 04/30/2020 3:38 PM EST Comprehensive Nutrition Assessment Type and Reason for Visit: Reassess Nutrition Recommendations/Plan: Continue diet as ordered. Nutrition Assessment: Nurse states pt eating about 75% of meals but doesn't drink the supplements. Pt may be going to LTACH today on high flow. Malnutrition Assessment: Malnutrition Status: At risk for malnutrition (Comment) Context: Acute Illness Findings of the 6 clinical characteristics of malnutrition: Energy Intake: Mild decrease in energy intake (Comment) Weight Loss: No significant weight loss Body Fat Loss: Unable to assess Muscle Mass Loss: Unable to assess Fluid Accumulation: No significant fluid accumulation Furnace Erector Strength: Not Performed Estimated Daily Nutrient Needs: Energy (kcal): 1900 kcal ([place] x 1.2); Weight Used for Energy Requirements: Current(88 kg) Protein (g): 1.5g/kg= 105 g protein; Weight Used for Protein Requirements: Ribera Nutrition Related Findings: Edema: none, Labs (04/24) Na 127 K 4.8 BUN/Cr 42/2.23 Glu 290, POC Glu 363-408 Meds: Decadron, Humalog, Lantus Wounds: None Current Nutrition Therapies: DIET CARB CONTROL; Carb Control: 4 carb choices (60 gms)/meal Anthropometric Measures: Height: 5' 8 (172.7 cm) Current Body Weight: 192 lb (87.1 kg) Admission Body Weight: 180 lb (81.6 kg) Ribera Body Weight: 154 lbs; % Ribera Body Weight BMI: 29.2 BMI Categories: Overweight (BMI 25.0-29.9) Nutrition Diagnosis: Inadequate oral intake related to impaired respiratory function as evidenced by intake 26-50%, intake 51-75% Nutrition Interventions: Food and/or Nutrient Delivery: Continue Current Diet, Discontinue Oral Nutrition Supplement Nutrition Education/Counseling: Education not indicated Coordination of Nutrition Care: Continue to monitor while inpatient Goals: po intake more than 75% Nutrition Monitoring and Evaluation: Behavioral-Environmental Outcomes: None Identified Food/Nutrient Intake Outcomes: Food and Nutrient Intake Physical Signs/Symptoms Outcomes: Biochemical Data, GI Status, Skin, Weight, Fluid Status or Edema Discharge Planning: Continue current diet Some areas of assessment may be incomplete due to COVID-19 precautions. Nicolas Kimball R.D. Clinical Dietitian Office: [phone] * Memo Brown MD - 04/30/2020 3:25 PM EST NEPHROLOGY PROGRESS NOTE Patient : Jourdan Arevalo; 74 y.o. Location: Attending: Kip Gil MD Admit Date: 04/23/2020 Hospital Day: 7 Interval history Patient was not seen [id number] due to COVID-19 isolation. Talked over the phone, denies any new complains, no fever , no sob, good apatite. Patient is currently on high flow oxygen NC 35 L 60 % fio2 No chest pain no nausea vomiting or diarrhea. Serum sodium 132 Renal function is STABLE creatinine 1.6 mg/dl. History of Present Illness: This is a 74 y.o. male with past medical history of type 2 diabetes, essential hypertension, CKD stage III with baseline creatinine of about 1.8 mg/dL, he follows up with [facility] in [facility] outpatient labs available, his last labs before this hospitalization was in 2011 and his creatinine at that time was 1.8 mg/dL. She admitted with complaints of cough fatigue shortness of breath that started a weeks ago, tested positive for Covid, and admitted for COVID-19 pneumonia Labs showed serum creatinine of 2.3 mg/dL on admission and therefore nephrology consultation has been requested Past Medical History: Diagnosis Date Arthritis Chronic kidney disease Stage III kidney disease COPD (chronic obstructive pulmonary disease) (HCC) Diabetes mellitus (HCC) Hyperlipidemia Hypertension Past Surgical History: History reviewed. No pertinent surgical history. Current Medications: furosemide (LASIX) tablet 20 mg, Daily budesonide-formoterol (SYMBICORT) 160-4.5 MCG/ACT inhaler 2 puff, BID senna (SENOKOT) tablet 8.6 mg, BID insulin glargine (LANTUS) injection vial 10 Units, BID hydrALAZINE (APRESOLINE) injection 10 mg, Q6H PRN atenolol (TENORMIN) tablet 50 mg, Daily zolpidem (AMBIEN) tablet 5 mg, Nightly PRN 0.9 % sodium chloride bolus, PRN 0.9 % sodium chloride infusion, PRN sodium chloride flush 0.9 % injection 10 mL, 2 times per day sodium chloride flush 0.9 % injection 10 mL, PRN promethazine (PHENERGAN) tablet 12.5 mg, Q6H PRN Or ondansetron (ZOFRAN) injection 4 mg, Q6H PRN magnesium hydroxide (MILK OF MAGNESIA) 400 MG/5ML suspension 30 mL, Daily PRN acetaminophen (TYLENOL) tablet 650 mg, Q6H PRN Or acetaminophen (TYLENOL) suppository 650 mg, Q6H PRN heparin (porcine) injection 5,000 Units, 3 times per day dexamethasone (DECADRON) tablet 6 mg, Daily dextromethorphan (DELSYM) 30 MG/5ML extended release liquid 60 mg, Q12H PRN benzonatate (TESSALON) capsule 200 mg, TID PRN magnesium sulfate 1 g in dextrose 5% 100 mL IVPB, PRN potassium chloride (KLOR-CON M) extended release tablet 40 mEq, PRN Or potassium bicarb-citric acid (EFFER-K) effervescent tablet 40 mEq, PRN Or potassium chloride 10 mEq/100 mL IVPB (Peripheral Line), PRN aspirin chewable tablet 81 mg, Daily glucose (GLUTOSE) 40 % oral gel 15 g, PRN dextrose 50 % IV solution, PRN glucagon (rDNA) injection 1 mg, PRN dextrose 5 % solution, PRN insulin lispro (HUMALOG) injection vial 0-12 Units, TID WC insulin lispro (HUMALOG) injection vial 0-6 Units, Nightly albuterol sulfate HFA 108 (90 Base) MCG/ACT inhaler 2 puff, 4x daily And ipratropium (ATROVENT HFA) 17 MCG/ACT inhaler 2 puff, 4x daily albuterol sulfate HFA 108 (90 Base) MCG/ACT inhaler 2 puff, Q2H PRN montelukast (SINGULAIR) tablet 10 mg, Daily tamsulosin (FLOMAX) capsule 0.4 mg, Daily atorvastatin (LIPITOR) tablet 10 mg, Daily amLODIPine (NORVASC) tablet 10 mg, Daily Allergies: Patient has no known allergies. Social History: Social History Socioeconomic History Marital status: Spouse name: Not on file Number of children: Not on file Years of education: Not on file Highest education level: Not on file Occupational History Not on file Social Needs Financial resource strain: Not on file Food insecurity Worry: Not on file Inability: Not on file Transportation needs Medical: Not on file Non-medical: Not on file Tobacco Use Smoking status: Never Smoker Smokeless tobacco: Never Used Substance and Sexual Activity Alcohol use: No Drug use: No Sexual activity: Not on file Lifestyle Physical activity Days per week: Not on file Minutes per session: Not on file Stress: Not on file Relationships Social connections Talks on phone: Not on file Gets together: Not on file Attends jew service: Not on file Active member of club or organization: Not on file Attends meetings of clubs or organizations: Not on file Relationship status: Not on file Intimate partner violence Fear of current or ex partner: Not on file Emotionally abused: Not on file Physically abused: Not on file Forced sexual activity: Not on file Other Topics Concern Not on file Social History Narrative Not on file Family History: History reviewed. No pertinent family history. Review of Systems: Constitutional: No fever, + chills, no night sweats, +fatigue, generalized weakness, no loss of appetite HEENT: No headache, otalgia, itchy eyes, epistaxis, nasal discharge or sore throat. Cardiac: No chest pain, +dyspnea, orthopnea or PND, palpitations Chest: No cough, hemoptysis, pleuritic chest pain, wheezing,+SOB Abdomen: No abdominal pain, nausea, vomiting, diarrhea, melena, dysphagia hematemesis,constipation,abdominal bloating, flank pain Neuro: No CVA, TIA or seizure like activity. Skin: No rashes, no itching. : No hematuria, no pyuria, no dysuria, no flank pain. Extremities: No swelling or joint pains. Objective: CURRENT TEMPERATURE: Temp: 98 F (36.7 C) MAXIMUM TEMPERATURE OVER 24HRS: Temp (24hrs), Av.8 F (36.6 C), Min:97.3 F (36.3 C), Max:98.4 F (36.9 C) CURRENT RESPIRATORY RATE: Resp: 18 CURRENT PULSE: Pulse: 66 CURRENT BLOOD PRESSURE: BP: (!) 153/74 24HR BLOOD PRESSURE RANGE: Systolic (24hrs), Av , Min:141 , Max:180 ; Diastolic (24hrs), Av, Min:43, Max:119 24HR INTAKE/OUTPUT: Intake/Output Summary (Last 24 hours) at 04/30/2020 1525 Last data filed at 04/30/2020 1230 Gross per 24 hour Intake 600 ml Output 2211 ml Net -1611 ml Patient Vitals for the past 96 hrs (Last 3 readings): Weight 04/29/20 0400 192 lb 14.4 oz (87.5 kg) 04/28/20 0558 191 lb 9.3 oz (86.9 kg) Physical Exam: Remainder of the examExcessive risk deferred due to excessive risk conferred by bedside physical exam during a global SARS Cov 2/COVID 19 pandemic, in a setting where local and national supplies of personal protective equipment are depleted. Labs: CBC: Recent Labs 04/28/20 0416 04/29/20 0449 04/30/20 0502 WBC 9.6 13.3* 15.9* RBC 4.84 5.08 4.77 HGB 14.0 14.4 13.8 HCT 40.9* 42.4 39.9* MCV 84.6 83.5 83.7 MCH 29.0 28.4 29.0 MCHC 34.3 34.0 34.6 RDW 13.4 12.9 13.0 PLT 230 302 344 MPV 9.6 9.2 9.0 BMP: Recent Labs 04/28/20 0416 04/28/20 0416 04/29/20 0449 04/29/20 1104 04/30/20 0502 NA 129* < > 135 126* 132* K 4.6 -- 4.4 -- 4.5 CL 99 -- 105 -- 99 CO2 21 -- 19* -- 20 BUN 43* -- 47* -- 48* CREATININE 1.44* -- 1.51* -- 1.62* GLUCOSE 254* -- 206* -- 228* CALCIUM 8.2* -- 8.6 -- 8.6 < > = values in this interval not displayed. Phosphorus: No results for input(s): PHOS in the last 72 hours. Magnesium: Recent Labs 04/28/20 0416 04/29/20 0449 04/30/20 0502 MG 2.4 2.4 2.3 Albumin: No results for input(s): LABALBU in the last 72 hours. IRON: No results for input(s): IRON in the last 72 hours. Iron Saturation: Invalid input(s): PERCENTFE TIBC: No results for input(s): TIBC in the last 72 hours. FERRITIN: Recent Labs 04/28/20 0416 FERRITIN 1,111* Radiology: Chest x-ray Ill-defined lateral left lung and bibasilar airspace disease suspicious for multifocal pneumonia, likely an atypical or viral pneumonia. Assessment: 1. Acute kidney injury on CKD stage 3 baseline serum creatinine is 1.8 mg/dL likely secondary to prerenal azotemia-improving renal function 2. Hyponatremia, hypoosmolar hyponatremia most likely secondary to use of hydrochlorothiazide Sodium 132 3. COVID-19 pneumonia 4. Type 2 diabetes 5. Essential hypertension-BP improving Plan: 1. Basic metabolic panel daily. 2. Patient is receiving remdesivir-No contraindication from renal standpoint as GFR is > than 30 3. hydrochlorothiazide on hold due to hyponatremia 4. 1500 mls oral Fluid restriction-Lasix 20 mg p.o. daily 5. IV hydralazine 10 mg q. 6 hourly for systolic blood pressure greater than 160. Thank you for the consultation. * Sophia Reyes, OT - 04/30/2020 2:19 PM [facility] Occupational Therapy Evaluation Date: 04/30/20 Patient Name: Jourdan Arevalo Room: Account: [id number] : 1945 (74 y.o.) Gender: male Discharge Recommendations: Further Occupational Therapy is recommended upon facility discharge. Referring Practitioner: ANA Spencer CNP Diagnosis: Pneumonia due to COVID-19 virus Treatment Diagnosis: Impaired self-care status. Past Medical History: has a past medical history of Arthritis, Chronic kidney disease, COPD (chronic obstructive pulmonary disease) (HCC), Diabetes mellitus (HCC), Hyperlipidemia, and Hypertension. Past Surgical History: has no past surgical history on file. Restrictions Restrictions/Precautions: Fall Risk(Covid(+), high flow) Required Braces or Orthoses?: No Vitals Temp: 98 F (36.7 C) Pulse: 66 Resp: 19 BP: (!) 153/74 Height: 5' 8 (172.7 cm) Weight: 192 lb 14.4 oz (87.5 kg) BMI (Calculated): 29.4 Oxygen Therapy SpO2: 93 % Pulse Oximeter Device Mode: Continuous Pulse Oximeter Device Location: Finger O2 Device: Heated high flow cannula Skin Assessment: Clean, dry, & intact FiO2 : 65 % PEEP/CPAP (cm H2O): 65 cm H20 O2 Flow Rate (L/min): 35 L/min Blood Gas Performed?: No Level of Consciousness: Alert (0) Subjective Subjective: If I could just get off this oxygen, I'll be fine Pt does not fully understanding hiscurrent medical diagnosis. OT recommended to Pt that he discuss with his doctor. Overall Orientation Status: Within Functional Limits Vision Vision: Impaired Vision Exceptions: Wears glasses at all times Hearing Hearing: Exceptions to WFL Hearing Exceptions: Hard of hearing/hearing concerns, Bilateral hearing aid Social/Functional History Lives With: Spouse Type of Home: House Home Layout: One level Home Access: Stairs to enter with rails Entrance Stairs - Number of Steps: 3 Entrance Stairs - Rails: Both Bathroom Shower/Tub: Tub/Shower unit Bathroom Toilet: Standard Bathroom Equipment: (no DME) Home Equipment: (no DME) ADL Assistance: Independent Ambulation Assistance: Independent Transfer Assistance: Independent Active Transport Engineer: Yes Mode of Transportation: Car 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 Objective Vision - Basic Assessment Prior Vision: Wears glasses all the time Cognition Overall Cognitive Status: Impaired Attention Span: Attends with cues to redirect Memory: Decreased short term memory, Decreased recall of recent events Following Commands: Follows multistep commands with repetition Safety Judgement: Decreased awareness of need for assistance Awareness of Errors: Assistance required to identify errors made Insights: Decreased awareness of deficits Sequencing and Organization: Assistance required to identify errors made, Assistance required to generate solutions Perception Overall Perceptual Status: WFL Sensation Overall Sensation Status: WFL ADL Feeding: Setup, Increased time to complete Grooming: Stand by assistance, Setup, Increased time to complete UE Bathing: Minimal assistance, Setup, Increased time to complete LE Bathing: Moderate assistance, Setup, Increased time to complete UE Dressing: Minimal assistance, Setup, Increased time to complete LE Dressing: Moderate assistance, Setup, Increased time to complete Toileting: Moderate assistance, Setup, Increased time to complete Additional Comments: ADL scores based on skilled observations and clinical reasoning unlessotherwise noted. Pt likely to require Min/Mod assist at this time due to limited activity tolerance secondary to COVID-19 debility. Pt's oxygen saturation decreased to 82% while doffing socks, however returned to 90% with Moderate verbal cues for pursed lip breathing. Continue OT POC. UE Function LUE Strength Gross LUE Strength: WFL L Hand General: 4+/5 LUE Strength Comment: Grossly 4+/5 LUE Tone: Normotonic LUE AROM (degrees) LUE AROM : WFL Left Hand AROM (degrees) Left Hand AROM: WFL RUE Strength Gross RUE Strength: WFL R Hand General: 4+/5 RUE Strength Comment: Grossly 4+/5 RUE Tone: Normotonic RUE AROM (degrees) RUE AROM : WFL Right Hand AROM (degrees) Right Hand AROM: WFL Fine Motor Skills Coordination Movements Are Fluid And Coordinated: Yes Mobility Balance Standing Balance: Stand by assistance Functional Mobility Functional - Mobility Device: No device Activity: (short distance in room) Assist Level: Stand by assistance Bed mobility Comment: Pt seated in chair at start and end of session Transfers Sit to stand: Supervision Stand to sit: Supervision Functional Activity Tolerance Functional Activity Tolerance: Tolerates < 10 min exercise w/ changes in vital signs Additional Comments: oxygen desaturation Assessment Performance deficits / Impairments: Decreased functional mobility , Decreased ADL status, Decreasedstrength, Decreased safe awareness, Decreased cognition, Decreased endurance, Decreased balance, Decreased high-level IADLs Treatment Diagnosis: Impaired self-care status. Prognosis: Good Decision Making: Medium Complexity REQUIRES OT FOLLOW UP: Yes Discharge Recommendations: Patient would benefit from continued therapy after discharge Activity Tolerance: Patient Tolerated treatment well, Treatment limited secondary to medical complications (free text)(oxygen desaturation) Functional Outcome Measures AM-[facility] Daily Activity Inpatient How much help for putting on and taking off regular lower body clothing?: A Lot How much help for Bathing?: A Lot How much help for Toileting?: A Lot How much help for putting on and taking off regular upper body clothing?: A Little How much help for taking care of personal grooming?: A Little How much help for eating meals?: A Little AM-[facility] Inpatient Daily Activity Raw Score: 15 AM-[facility] Inpatient ADL T-Scale Score : 34.69 ADL Inpatient CMS 0-100% Score: 56.46 ADL Inpatient [facility] G-Code Modifier : CK Goals Patient Goals Patient goals : To feel better Short term goals Time Frame for Short term goals: By discharge Short term goal 1: Pt will verbalize/demonstrate Good understanding of breathing techniques for increased independence with self-care and mobility. Short term goal 2: Pt will verbalize/demonstrate Good understanding of energy conservation/work simplification strategies for increased independence and safety with self-care and functional mobility. Short term goal 3: Pt will perform BADLs with stand by assist and Good pacing while maintaining oxygen satuation greater than 90%. Short term goal 4: Pt will perform functional mobility and transfers during self-care with stand byassist while maintaining oxygen saturation greater than 90%. Short term goal 5: Pt will actively participate in 15-20 minutes of therapeutic exercise/functionalactivities to promote increased independence with self-care and mobility. Plan Safety Devices Safety Devices in place: Yes Type of devices: Call light within reach, Gait belt, Left in chair Plan Times per week: 2-4 Times per day: Daily Current Treatment Recommendations: Self-Care / ADL, Strengthening, Balance Training, Functional Mobility Training, Endurance Training, Safety Education & Training, Patient/Caregiver Education & Training, Equipment Evaluation, Education, & procurement, Cognitive Reorientation, Cognitive/Perceptual Training OT Individual Minutes Time In: 1348 Time Out: 1404 Minutes: 16 * Carin Liu RN - 04/30/2020 2:09 PM EST Ok with Dr. Bermudez for patient to discharge to [facility] today on high flow. * Guanakito Baum MD - 04/30/2020 12:32 PM EST [facility] - Infectious diseases evaluation admission date 04/23/2020 reason for consultation: COVID Impression : Current: COVID 19 with possible superimposed bacterial infection Sepsis Acute kidney injury Leukocytosis possible steroid related COPD Diabetes mellitus Recommendations Ceftriaxone 6 days course completed 04/28/2020 Remdesivir 5 days course completed 04/29/2020 Patient refused convalescent plasma Decadron day 8 Follow inflammatory markers and procalcitonin in a.m. Follow CBC, renal and liver function Supportive care Discussed with nursing staff Infection Control Recommendations Droplet Plus Precautions History of Present Illness: Initial history: Jourdan Arevalo is a 74 y.o.-year-old male presented to ED for low grade fever, SOB taht worsens with exertion. Denies chest pain, nausea, vomiting, diarrhea, loss of taste/smell. Pt has history of COPD, hypertension and diabetes. Interval changes 04/30/2020 The patient remains on high flow oxygen, no increased cough or shortness of breath, no new events CT Chest 04/25/2019 showed patchy groundglass opacities in the lower lung zones Afebrile for more than 72 hours. T-max 101.1 on 04/26/2020 WBC 15.9, creatinine 1.62 04/28/2020 ferritin 1111, C-reactive protein 29, LD 366, procalcitonin 0.16 Chest x-ray from earlier today showed slight progression of multifocal airspace disease left more than right Imagin/1 CXR The patient is rotated to the left on this portable study. There is ill-defined airspace disease in the lateral left lower lung and at both lung bases. There is no pneumothorax or pleural fluid. The heart size is within normal limits. No acute bone finding Ill-defined lateral left lung and bibasilar airspace disease suspicious for multifocal pneumonia, likely an atypical or viral pneumonia. Patient Vitals for the past 8 hrs: BP Temp Temp src Pulse Resp SpO2 04/30/20 1120 19 93 % 04/30/20 0930 66 19 (!) 89 % 04/30/20 0900 (!) 153/74 73 27 (!) 85 % 04/30/20 0831 23 (!) 89 % 04/30/20 0830 67 04/30/20 0800 (!) 152/80 98 F (36.7 C) Oral 64 15 94 % 04/30/20 0745 93 % 04/30/20 0730 65 11 94 % 04/30/20 0700 66 15 93 % 04/30/20 0630 69 16 90 % 04/30/20 0600 (!) 174/79 65 19 90 % 04/30/20 0530 64 19 92 % 04/30/20 0500 (!) 156/78 68 14 94 % 04/30/20 0440 17 97 % I have personally reviewed the past medical history, past surgical history, medications, social history, and family history, and I haveupdated the database accordingly. Allergies: Patient has no known allergies. Review of Systems: Review of Systems Constitutional: Positive for fever. HENT: Negative. Eyes: Negative. Respiratory: Positive for cough and shortness of breath. Cardiovascular: Negative. Negative for chest pain. Gastrointestinal: Negative. Genitourinary: Negative. Musculoskeletal: Negative. Skin: Negative. Physical Examination : Remainder of examination deferred due to excessive risk conferred by physical examination during a global pandemic due to coronavirus 19. In a setting where local and national supplies of personal protective equipment are depleted Past Medical History: Past Medical History: Diagnosis Date Arthritis Chronic kidney disease Stage III kidney disease COPD (chronic obstructive pulmonary disease) (HCC) Diabetes mellitus (HCC) Hyperlipidemia Hypertension Past Surgical History: History reviewed. No pertinent surgical history. Medications: furosemide 20 mg Oral Daily budesonide-formoterol 2 puff Inhalation BID senna 1 tablet Oral BID insulin glargine 10 Units Subcutaneous BID atenolol 50 mg Oral Daily sodium chloride flush 10 mL Intravenous 2 times per day heparin (porcine) 5,000 Units Subcutaneous 3 times per day dexamethasone 6 mg Oral Daily aspirin 81 mg Oral Daily insulin lispro 0-12 Units Subcutaneous TID WC insulin lispro 0-6 Units Subcutaneous Nightly albuterol sulfate HFA 2 puff Inhalation 4x daily And ipratropium 2 puff Inhalation 4x daily montelukast 10 mg Oral Daily tamsulosin 0.4 mg Oral Daily atorvastatin 10 mg Oral Daily amLODIPine 10 mg Oral Daily Social History: Social History Socioeconomic History Marital status: Spouse name: Not on file Number of children: Not on file Years of education: Not on file Highest education level: Not on file Occupational History Not on file Social Needs Financial resource strain: Not on file Food insecurity Worry: Not on file Inability: Not on file Transportation needs Medical: Not on file Non-medical: Not on file Tobacco Use Smoking status: Never Smoker Smokeless tobacco: Never Used Substance and Sexual Activity Alcohol use: No Drug use: No Sexual activity: Not on file Lifestyle Physical activity Days per week: Not on file Minutes per session: Not on file Stress: Not on file Relationships Social connections Talks on phone: Not on file Gets together: Not on file Attends jew service: Not on file Active member of club or organization: Not on file Attends meetings of clubs or organizations: Not on file Relationship status: Not on file Intimate partner violence Fear of current or ex partner: Not on file Emotionally abused: Not on file Physically abused: Not on file Forced sexual activity: Not on file Other Topics Concern Not on file Social History Narrative Not on file Family History: History reviewed. No pertinent family history. Medical Decision Making: I have independently reviewed/ordered the following labs: CBC with Differential: Recent Labs 04/29/20 0449 04/30/20 0502 WBC 13.3* 15.9* HGB 14.4 13.8 HCT 42.4 39.9* PLT 302 344 BMP: Recent Labs 04/29/20 0449 04/29/20 1104 04/30/20 0502 NA 135 126* 132* K 4.4 -- 4.5 CL 105 -- 99 CO2 19* -- 20 BUN 47* -- 48* CREATININE 1.51* -- 1.62* MG 2.4 -- 2.3 Hepatic Function Panel: No results for input(s): PROT, LABALBU, BILIDIR, IBILI, BILITOT, ALKPHOS, ALT, AST in the last 72 hours. No results for input(s): RPR in the last 72 hours. No results for input(s): HIV in the last 72 hours. No results for input(s): BC in the last 72 hours. Lab Results Component Value Date CREATININE 1.62 04/30/2020 GLUCOSE 228 04/30/2020 Detailed results: Thank you for allowing us to participate in the care of this patient.Please call with questions. This note is created with the assistance of a speech recognition program. While intending to generate adocument that actually reflects the content of the visit, the document can still have some errors including those of syntax and sound a like substitutions which may escape proof reading. It such instances, actual meaningcan be extrapolated by contextual diversion. Guanakito Baum MD Office: [facility] / office [phone] * Wei Bermudez MD - 04/30/2020 12:22 PM EST Pulmonary Progress Note [facility] Patient - Jourdan Arevalo, Age - 74 y.o. - 1945 Room [facility] - [facility] - [id number] [facility] [id number] Date of Admission - 04/23/2020 9:54 PM Consulting Service/Physician Consulting - Kip Gil MD Primary Care Physician - Dulce Maria Del Castillo MD Follow-up: Acute respiratory failure SUBJECTIVE Feeling the same, on high flow nasal cannula 35 L and 65% FiO2 some short of breath, and cough, no wheezing No chest pain, fever or chills No nausea vomiting or diarrhea OBJECTIVE VITALS height is 5' 8 (1.727 m) and weight is 192 lb 14.4 oz (87.5 kg). His oral temperature is 98 F (36.7 C). His blood pressure is 153/74 (abnormal) and his pulse is 66. His respiration is 19 and oxygen saturation is 93%. Body mass index is 29.33 kg/m . Temperature Range: Temp: 98 F (36.7 C) Temp Av.7 F (36.5 C) Min: 97.3 F (36.3 C) Max: 98.4 F (36.9 C) BP Range: Systolic (24hrs), Av , Min:141 , Max:180 Diastolic (24hrs), Av, Min:43, Max:119 Pulse Range: Pulse Av.3 Min: 63 Max: 73 Respiration Range: Resp Av.4 Min: 0 Max: 27 Current Pulse Ox:: SpO2: 93 % 24HR Pulse Ox Range: SpO2 Av.2 % Min: 85 % Max: 97 % Oxygen Amount and Delivery: O2 Flow Rate (L/min): 35 L/min Wt Readings from Last 3 Encounters: 04/29/20 192 lb 14.4 oz (87.5 kg) I/O (24 Hours) Intake/Output Summary (Last 24 hours) at 04/30/2020 1222 Last data filed at 04/30/2020 1104 Gross per 24 hour Intake 600 ml Output 1775 ml Net -1175 ml EXAM General Appearance Awake, alert, in no acute distress HEENT - normocephalic, atraumatic. Neck -no JVD, trachea midline Lungs -coarse rhonchi, decreased sounds, no wheezing, no distress Cardiovascular - Heart sounds are normal. Regular rate and rhythm Abdomen - Soft, nontender, nondistended, no guarding Neurologic -appropriate, following commands, Skin - No bruising or bleeding Extremities - No clubbing, cyanosis, edema MEDS furosemide 20 mg Oral Daily budesonide-formoterol 2 puff Inhalation BID senna 1 tablet Oral BID insulin glargine 10 Units Subcutaneous BID atenolol 50 mg Oral Daily sodium chloride flush 10 mL Intravenous 2 times per day heparin (porcine) 5,000 Units Subcutaneous 3 times per day dexamethasone 6 mg Oral Daily aspirin 81 mg Oral Daily insulin lispro 0-12 Units Subcutaneous TID WC insulin lispro 0-6 Units Subcutaneous Nightly albuterol sulfate HFA 2 puff Inhalation 4x daily And ipratropium 2 puff Inhalation 4x daily montelukast 10 mg Oral Daily tamsulosin 0.4 mg Oral Daily atorvastatin 10 mg Oral Daily amLODIPine 10 mg Oral Daily sodium chloride dextrose hydrALAZINE, zolpidem, sodium chloride, sodium chloride, sodium chloride flush, promethazine ORondansetron, magnesium hydroxide, acetaminophen OR acetaminophen, dextromethorphan, benzonatate, magnesium sulfate, potassium chloride OR potassium alternative oral replacement OR potassium chloride, glucose, dextrose, glucagon (rDNA), dextrose, albuterol sulfate HFA LABS CBC Recent Labs 04/30/20 0502 WBC 15.9* HGB 13.8 HCT 39.9* MCV 83.7 PLT 344 BMP: Lab Results Component Value Date NA 132 04/30/2020 K 4.5 04/30/2020 CL 99 04/30/2020 CO2 20 04/30/2020 BUN 48 04/30/2020 LABALBU 3.1 04/27/2020 CREATININE 1.62 04/30/2020 CALCIUM 8.6 04/30/2020 GFRAA 50 04/30/2020 LABGLOM 42 04/30/2020 ABGs:No results found for: PHART, PO2ART, FQZ5TOS No results found for: IFIO2, MODE, SETTIDVOL, SETPEEP Ionized Calcium: No results found for: IONCA Magnesium: Lab Results Component Value Date MG 2.3 04/30/2020 Phosphorus: No results found for: PHOS LIVER PROFILE No results for input(s): AST, ALT, LIPASE, BILIDIR, BILITOT, ALKPHOS in the last 72 hours. Invalid input(s): AMYLASE, ALB INR No results for input(s): INR in the last 72 hours. PTT No results for input(s): APTT in the last 72 hours. BNP No results for input(s): BNP in the last 72 hours. RADIOLOGY Chest x-ray to me with no change in the bilateral infiltrates (See actual reports for details) ASSESSMENT/PLAN Principal Problem: Pneumonia due to COVID-19 virus Active Problems: NAOMIE (acute kidney injury) (HCC) COPD (chronic obstructive pulmonary disease) (HCC) DM (diabetes mellitus) (HCC) Acute respiratory failure with hypoxia COPD with lower respiratory infection COVID-19 pneumonia Elevated inflammatory markers: Including CRP, LDH, ferritin, but unremarkable D-dimer Due to wean FiO2 as tolerated, adjust position and do proning Bronchodilators Completed remdesivir, dexamethasone day 7, refused plasma , off antibiotic as per ID Diuresis IS, flutter valve On heparin subcu * Daiana Suero RCP - 04/30/2020 8:33 AM EST PROVIDE ADEQUATE OXYGENATION WITH ACCEPTABLE SP02/ABG'S [x] IDENTIFY APPROPRIATE OXYGEN THERAPY [x] MONITOR SP02/ABG'S NEEDED [x] PATIENT EDUCATION NEEDED * Shazia Tan RN - 04/29/2020 6:54 PM EST Patient's updated. Discussed patient's condition, treatment and plan of care. All questions and concerns addressed. * Giovanni Segal MD - 04/29/2020 4:48 PM EST IN-PATIENT SERVICE [facility] Internal Medicine Progress Note 04/29/2020 4:48 PM Name: Jourdan Arevalo Acct: [id number] Room: IP Day: 6 Admit Date: 04/23/2020 9:54 PM PCP: Dulce Maria Del Castillo MD Code Status: Full Code Subjective: C/C: Chief Complaint Patient presents with Positive For Covid-19 Interval History Status: Improving HPI: This patient is a 74 y.o. Non-/non malewho presents with fever and shortness of breath Positive COVID-19 test on 04/20/2020 Has been feeling progressively short of breath since, started to have fevers Denies chest pain abdominal pain nausea vomiting or diarrhea. Has been taking his inhalers but not helping. History of COPD hypertension hyperlipidemia type 2 diabetes. Review of Systems: Positive for shortness of breath, no cough Denies chest pain or palpitations Denies abdominal pain, diarrhea vomiting Denies any new numbness tremors or weakness. Medications: Allergies: No Known Allergies Current Meds: Scheduled Meds: furosemide 20 mg Oral Daily budesonide-formoterol 2 puff Inhalation BID senna 1 tablet Oral BID insulin glargine 10 Units Subcutaneous BID atenolol 50 mg Oral Daily remdesivir IVPB 100 mg Intravenous Q24H sodium chloride flush 10 mL Intravenous 2 times per day heparin (porcine) 5,000 Units Subcutaneous 3 times per day dexamethasone 6 mg Oral Daily aspirin 81 mg Oral Daily insulin lispro 0-12 Units Subcutaneous TID WC insulin lispro 0-6 Units Subcutaneous Nightly albuterol sulfate HFA 2 puff Inhalation 4x daily And ipratropium 2 puff Inhalation 4x daily montelukast 10 mg Oral Daily tamsulosin 0.4 mg Oral Daily atorvastatin 10 mg Oral Daily amLODIPine 10 mg Oral Daily Continuous Infusions: sodium chloride dextrose PRN Meds: hydrALAZINE, zolpidem, sodium chloride, sodium chloride, sodium chloride flush, promethazine OR ondansetron, magnesium hydroxide, acetaminophen OR acetaminophen, dextromethorphan, benzonatate, magnesium sulfate, potassium chloride OR potassium alternative oral replacement OR potassium chloride, glucose, dextrose, glucagon (rDNA), dextrose, albuterol sulfate HFA Data: Past Medical History: has a past medical history of Arthritis, Chronic kidney disease, COPD (chronic obstructive pulmonary disease) (HCC), Diabetes mellitus (HCC), Hyperlipidemia, and Hypertension. Social History: reports that he has never smoked. He has never used smokeless tobacco. He reports that he does not drink alcohol or use drugs. Family History: History reviewed. No pertinent family history. Vitals: BP (!) 152/63 Pulse 67 Temp 97.4 F (36.3 C) (Oral) Resp 17 Ht 5' 8 (1.727 m) Wt 192 lb 14.4 oz (87.5 kg) SpO2 (!) 89% BMI 29.33 kg/m Temp (24hrs), Av.7 F (36.5 C), Min:97.4 F (36.3 C), Max:98 F (36.7 C) Recent Labs 04/28/20 2120 04/29/20 0819 04/29/20 1132 04/29/20 1636 POCGLU 306* 173* 337* 198* I/O (24Hr): Intake/Output Summary (Last 24 hours) at 04/29/2020 1648 Last data filed at 04/29/2020 0900 Gross per 24 hour Intake 250 ml Output 1525 ml Net -1275 ml Labs: Lab Results Component Value Date WBC 13.3 (H) 04/29/2020 HGB 14.4 04/29/2020 HCT 42.4 04/29/2020 MCV 83.5 04/29/2020 PLT 302 04/29/2020 Lab Results Component Value Date NA 126 04/29/2020 K 4.4 04/29/2020 CL 105 04/29/2020 CO2 19 04/29/2020 BUN 47 04/29/2020 CREATININE 1.51 04/29/2020 GLUCOSE 206 04/29/2020 CALCIUM 8.6 04/29/2020 Lab Results Component Value Date/Time SPECIAL RAC 04/15/2012 12:36 AM SPECIAL NOT REPORTED 04/15/2012 12:36 AM SPECIAL NOT REPORTED 04/15/2012 12:36 AM SPECIAL NOT REPORTED 04/15/2012 12:36 AM Lab Results Component Value Date/Time CULTURE NO GROWTH 5 DAYS 04/15/2012 12:36 AM CULTURE 04/15/2012 12:36 AM Performed at [address] [place] [id number] CULTURE 04/15/2012 12:36 AM CULTURE NO GROUP A BETA HEMOLYTIC STREPTOCOCCUS ISOLATED 04/15/2012 12:36 AM CULTURE 04/15/2012 12:36 AM Performed at [address] [place] [id number] CULTURE 04/15/2012 12:36 AM Radiology: Recent data reviewed Physical Examination: Remainder of examination deferred due to excessive risk conferred by physical examination during a global pandemic due to coronavirus 19, in a setting where local and national supplies of personal protective equipment are depleted. Assessment: Primary Problem Pneumonia due to COVID-19 virus Active Hospital Problems Diagnosis Date Noted NAOMIE (acute kidney injury) ([facility]) [N17.9] 04/24/2020 COPD (chronic obstructive pulmonary disease) ([facility]) [J44.9] 04/24/2020 DM (diabetes mellitus) (HCC) [E11.9] 04/24/2020 Pneumonia due to COVID-19 virus [U07.1, J12.82] 04/23/2020 DVT prophylaxis: Heparin Plan: 74-year-old male admitted with fever and shortness of breath 1. Pneumonia due to COVID-19 virus pulmonology, ID consulted started on Decadron, Rocephin and azithromycin, will add D-dimer 2. Acute hypoxic respiratory failure as evidenced by subjective shortness of breath and desaturation to 88% on room air 3. COPD continue home inhalers 4. Hyponatremia 130 at presentation, will check urine studies, nephrology consulted 5. NAOMIE on CKD stage IV-creatinine 2.49 at presentation, baseline 1.8 6. Type 2 diabetes with hyperglycemia, HbA1c 10.5 on 12/13/2019, 7.2 this admission, home Metformin and glipizide on hold, will initiate Lantus and sliding scale, blood sugars running high especially with steroids. 7. Hypertension continue home meds, currently controlled 1/3 D-dimer negative Saturating okay on room air 93% Sodium improved at 128, NAOMIE improving, creatinine 2.15 today. Patient on normal saline@50 cc/hr, nephrology following Blood sugars running high since patient on steroids, will increase Lantus Hydrochlorothiazide stopped due to hyponatremia, blood pressure running high will add atenolol. Apr 29 Taper oxygen as tolerated resp failure on high flowoxygen pulm input noted remdesivir crp is up to 54 from 20 Poor prognosis Hyponatremia off hctz Recheck in am 128 today Hyperglycemia blood sugar over 300 Change lantus to 10 bid from 15 daily Recent Labs 04/28/20 0416 CRP 29.1* LDH 366* PROCAL 0.16* FERRITIN 1,111* Giovanni Segal MD 04/29/2020 4:48 PM * Guanakito Baum MD - 04/29/2020 3:43 PM EST [facility] - Infectious diseases evaluation admission date 04/23/2020 reason for consultation: COVID Impression : Current: COVID 19 with possible superimposed bacterial infection Sepsis Acute kidney injury Leukocytosis resolved COPD Diabetes mellitus Recommendations Ceftriaxone 6 days course completed 04/28/2020 Remdesivir day 5 Patient refused convalescent plasma Decadron Follow inflammatory markers Follow renal and liver function Supportive care Discussed with nursing staff Infection Control Recommendations Droplet Plus Precautions History of Present Illness: Initial history: Jourdan Arevalo is a 74 y.o.-year-old male presented to ED for low grade fever, SOB taht worsens with exertion. Denies chest pain, nausea, vomiting, diarrhea, loss of taste/smell. Pt has history of COPD, hypertension and diabetes. Interval changes 04/29/2020 The patient remains on high flow oxygen per nasal cannula, no reported fever WBC 13.[address] Chest 04/25/2019 showed patchy groundglass opacities in the lower lung zones Afebrile for more than 48 hours hours. T-max 101.1 on 04/26/2020 Imagin/1 CXR The patient is rotated to the left on this portable study. There is ill-defined airspace disease in the lateral left lower lung and at both lung bases. There is no pneumothorax or pleural fluid. The heart size is within normal limits. No acute bone finding Ill-defined lateral left lung and bibasilar airspace disease suspicious for multifocal pneumonia, likely an atypical or viral pneumonia. Patient Vitals for the past 8 hrs: BP Temp Temp src Pulse Resp SpO2 04/29/20 1900 (!) 141/72 66 19 (!) 89 % 04/29/20 1800 (!) 149/43 70 19 (!) 86 % 04/29/20 1700 (!) 157/72 64 17 91 % 04/29/20 1600 (!) 152/63 97.5 F (36.4 C) Oral 67 17 (!) 89 % 04/29/20 1546 17 95 % 04/29/20 1500 (!) 159/76 68 17 90 % 04/29/20 1400 (!) 159/77 68 94 % 04/29/20 1300 (!) 149/69 73 92 % 04/29/20 1222 22 93 % 04/29/20 1200 (!) 175/75 97.4 F (36.3 C) Oral 67 19 91 % I have personally reviewed the past medical history, past surgical history, medications, social history, and family history, and I haveupdated the database accordingly. Allergies: Patient has no known allergies. Review of Systems: Review of Systems Constitutional: Positive for fever. HENT: Negative. Eyes: Negative. Respiratory: Positive for cough and shortness of breath. Cardiovascular: Negative. Negative for chest pain. Gastrointestinal: Negative. Genitourinary: Negative. Musculoskeletal: Negative. Skin: Negative. Physical Examination : Remainder of examination deferred due to excessive risk conferred by physical examination during a global pandemic due to coronavirus 19. In a setting where local and national supplies of personal protective equipment are depleted Past Medical History: Past Medical History: Diagnosis Date Arthritis Chronic kidney disease Stage III kidney disease COPD (chronic obstructive pulmonary disease) (HCC) Diabetes mellitus (HCC) Hyperlipidemia Hypertension Past Surgical History: History reviewed. No pertinent surgical history. Medications: furosemide 20 mg Oral Daily budesonide-formoterol 2 puff Inhalation BID senna 1 tablet Oral BID insulin glargine 10 Units Subcutaneous BID atenolol 50 mg Oral Daily remdesivir IVPB 100 mg Intravenous Q24H sodium chloride flush 10 mL Intravenous 2 times per day heparin (porcine) 5,000 Units Subcutaneous 3 times per day dexamethasone 6 mg Oral Daily aspirin 81 mg Oral Daily insulin lispro 0-12 Units Subcutaneous TID WC insulin lispro 0-6 Units Subcutaneous Nightly albuterol sulfate HFA 2 puff Inhalation 4x daily And ipratropium 2 puff Inhalation 4x daily montelukast 10 mg Oral Daily tamsulosin 0.4 mg Oral Daily atorvastatin 10 mg Oral Daily amLODIPine 10 mg Oral Daily Social History: Social History Socioeconomic History Marital status: Spouse name: Not on file Number of children: Not on file Years of education: Not on file Highest education level: Not on file Occupational History Not on file Social Needs Financial resource strain: Not on file Food insecurity Worry: Not on file Inability: Not on file Transportation needs Medical: Not on file Non-medical: Not on file Tobacco Use Smoking status: Never Smoker Smokeless tobacco: Never Used Substance and Sexual Activity Alcohol use: No Drug use: No Sexual activity: Not on file Lifestyle Physical activity Days per week: Not on file Minutes per session: Not on file Stress: Not on file Relationships Social connections Talks on phone: Not on file Gets together: Not on file Attends jew service: Not on file Active member of club or organization: Not on file Attends meetings of clubs or organizations: Not on file Relationship status: Not on file Intimate partner violence Fear of current or ex partner: Not on file Emotionally abused: Not on file Physically abused: Not on file Forced sexual activity: Not on file Other Topics Concern Not on file Social History Narrative Not on file Family History: History reviewed. No pertinent family history. Medical Decision Making: I have independently reviewed/ordered the following labs: CBC with Differential: Recent Labs 04/28/206 04/29/20448 WBC 9.6 13.3* HGB 14.0 14.4 HCT 40.9* 42.4 PLT 230 302 BMP: Recent Labs 04/28/206 04/28/20 0416 04/29/209 04/29/20 1104 NA 129* < > 135 126* K 4.6 -- 4.4 -- CL 99 -- 105 -- CO2 21 -- 19* -- BUN 43* -- 47* -- CREATININE 1.44* -- 1.51* -- MG 2.4 -- 2.4 -- < > = values in this interval not displayed. Hepatic Function Panel: Recent Labs 04/27/20427 PROT 6.2* LABALBU 3.1* BILIDIR 0.11 IBILI 0.15 BILITOT 0.26* ALKPHOS 58 ALT 28 AST 28 No results for input(s): RPR in the last 72 hours. No results for input(s): HIV in the last 72 hours. No results for input(s): BC in the last 72 hours. Lab Results Component Value Date CREATININE 1.51 04/29/2020 GLUCOSE 206 04/29/2020 Detailed results: Thank you for allowing us to participate in the care of this patient.Please call with questions. This note is created with the assistance of a speech recognition program. While intending to generate adocument that actually reflects the content of the visit, the document can still have some errors including those of syntax and sound a like substitutions which may escape proof reading. It such instances, actual meaningcan be extrapolated by contextual diversion. Guanakito Baum MD Office: [facility] / office [phone] * Eliezer Patterson MD - 04/29/2020 12:21 PM EST NEPHROLOGY PROGRESS NOTE Patient : Jourdan Arevalo; 74 y.o. Location: Attending: Kip Gil MD Admit Date: 04/23/2020 Hospital Day: 6 Interval history Patient was not seen [id number] due to COVID-19 isolation. Patient is currently on high flow oxygen NC 40 L 65 % fio2 No chest pain no nausea vomiting or diarrhea. Serum sodium 135 mmol/l and now 126 with blood sugar of 337 Renal function is STABLE creatinine 1.51 mg/dl. History of Present Illness: This is a 74 y.o. male with past medical history of type 2 diabetes, essential hypertension, CKD stage III with baseline creatinine of about 1.8 mg/dL, he follows up with [facility] tack[facility] in [facility] outpatient labs available, his last labs before this hospitalization was in 2011 and his creatinine at that time was 1.8 mg/dL. She admitted with complaints of cough fatigue shortness of breath that started a weeks ago, tested positive for Covid, and admitted for COVID-19 pneumonia Labs showed serum creatinine of 2.3 mg/dL on admission and therefore nephrology consultation has been requested Past Medical History: Diagnosis Date Arthritis Chronic kidney disease Stage III kidney disease COPD (chronic obstructive pulmonary disease) (HCC) Diabetes mellitus (HCC) Hyperlipidemia Hypertension Past Surgical History: History reviewed. No pertinent surgical history. Current Medications: budesonide-formoterol (SYMBICORT) 160-4.5 MCG/ACT inhaler 2 puff, BID senna (SENOKOT) tablet 8.6 mg, BID insulin glargine (LANTUS) injection vial 10 Units, BID hydrALAZINE (APRESOLINE) injection 10 mg, Q6H PRN atenolol (TENORMIN) tablet 50 mg, Daily zolpidem (AMBIEN) tablet 5 mg, Nightly PRN remdesivir 100 mg in sodium chloride 0.9 % 250 mL IVPB, Q24H 0.9 % sodium chloride bolus, PRN 0.9 % sodium chloride infusion, PRN sodium chloride flush 0.9 % injection 10 mL, 2 times per day sodium chloride flush 0.9 % injection 10 mL, PRN promethazine (PHENERGAN) tablet 12.5 mg, Q6H PRN Or ondansetron (ZOFRAN) injection 4 mg, Q6H PRN magnesium hydroxide (MILK OF MAGNESIA) 400 MG/5ML suspension 30 mL, Daily PRN acetaminophen (TYLENOL) tablet 650 mg, Q6H PRN Or acetaminophen (TYLENOL) suppository 650 mg, Q6H PRN heparin (porcine) injection 5,000 Units, 3 times per day dexamethasone (DECADRON) tablet 6 mg, Daily dextromethorphan (DELSYM) 30 MG/5ML extended release liquid 60 mg, Q12H PRN benzonatate (TESSALON) capsule 200 mg, TID PRN magnesium sulfate 1 g in dextrose 5% 100 mL IVPB, PRN potassium chloride (KLOR-CON M) extended release tablet 40 mEq, PRN Or potassium bicarb-citric acid (EFFER-K) effervescent tablet 40 mEq, PRN Or potassium chloride 10 mEq/100 mL IVPB (Peripheral Line), PRN aspirin chewable tablet 81 mg, Daily glucose (GLUTOSE) 40 % oral gel 15 g, PRN dextrose 50 % IV solution, PRN glucagon (rDNA) injection 1 mg, PRN dextrose 5 % solution, PRN insulin lispro (HUMALOG) injection vial 0-12 Units, TID WC insulin lispro (HUMALOG) injection vial 0-6 Units, Nightly albuterol sulfate HFA 108 (90 Base) MCG/ACT inhaler 2 puff, 4x daily And ipratropium (ATROVENT HFA) 17 MCG/ACT inhaler 2 puff, 4x daily albuterol sulfate HFA 108 (90 Base) MCG/ACT inhaler 2 puff, Q2H PRN montelukast (SINGULAIR) tablet 10 mg, Daily tamsulosin (FLOMAX) capsule 0.4 mg, Daily atorvastatin (LIPITOR) tablet 10 mg, Daily amLODIPine (NORVASC) tablet 10 mg, Daily Allergies: Patient has no known allergies. Social History: Social History Socioeconomic History Marital status: Spouse name: Not on file Number of children: Not on file Years of education: Not on file Highest education level: Not on file Occupational History Not on file Social Needs Financial resource strain: Not on file Food insecurity Worry: Not on file Inability: Not on file Transportation needs Medical: Not on file Non-medical: Not on file Tobacco Use Smoking status: Never Smoker Smokeless tobacco: Never Used Substance and Sexual Activity Alcohol use: No Drug use: No Sexual activity: Not on file Lifestyle Physical activity Days per week: Not on file Minutes per session: Not on file Stress: Not on file Relationships Social connections Talks on phone: Not on file Gets together: Not on file Attends jew service: Not on file Active member of club or organization: Not on file Attends meetings of clubs or organizations: Not on file Relationship status: Not on file Intimate partner violence Fear of current or ex partner: Not on file Emotionally abused: Not on file Physically abused: Not on file Forced sexual activity: Not on file Other Topics Concern Not on file Social History Narrative Not on file Family History: History reviewed. No pertinent family history. Review of Systems: Constitutional: No fever, + chills, no night sweats, +fatigue, generalized weakness, no loss of appetite HEENT: No headache, otalgia, itchy eyes, epistaxis, nasal discharge or sore throat. Cardiac: No chest pain, +dyspnea, orthopnea or PND, palpitations Chest: No cough, hemoptysis, pleuritic chest pain, wheezing,+SOB Abdomen: No abdominal pain, nausea, vomiting, diarrhea, melena, dysphagia hematemesis,constipation,abdominal bloating, flank pain Neuro: No CVA, TIA or seizure like activity. Skin: No rashes, no itching. : No hematuria, no pyuria, no dysuria, no flank pain. Extremities: No swelling or joint pains. Objective: CURRENT TEMPERATURE: Temp: 98 F (36.7 C) MAXIMUM TEMPERATURE OVER 24HRS: Temp (24hrs), Av.8 F (36.6 C), Min:97.4 F (36.3 C), Max:98 F (36.7 C) CURRENT RESPIRATORY RATE: Resp: 22 CURRENT PULSE: Pulse: 68 CURRENT BLOOD PRESSURE: BP: (!) 142/61 24HR BLOOD PRESSURE RANGE: Systolic (24hrs), Av , Min:110 , Max:176 ; Diastolic (24hrs), Av, Min:61, Max:113 24HR INTAKE/OUTPUT: Intake/Output Summary (Last 24 hours) at 04/29/2020 1221 Last data filed at 04/29/2020 0900 Gross per 24 hour Intake 370 ml Output 1525 ml Net -1155 ml Patient Vitals for the past 96 hrs (Last 3 readings): Weight 04/29/20 0400 192 lb 14.4 oz (87.5 kg) 04/28/20 0558 191 lb 9.3 oz (86.9 kg) 04/26/20 0600 194 lb (88 kg) Physical Exam: Remainder of the examExcessive risk deferred due to excessive risk conferred by bedside physical exam during a global SARS Cov 2/COVID 19 pandemic, in a setting where local and national supplies of personal protective equipment are depleted. Labs: CBC: Recent Labs 04/27/2042704/28/2041504/29/20448 WBC 8.7 9.6 13.3* RBC 4.99 4.84 5.08 HGB 14.4 14.0 14.4 HCT 42.1 40.9* 42.4 MCV 84.5 84.6 83.5 MCH 28.9 29.0 28.4 MCHC 34.2 34.3 34.0 RDW 13.3 13.4 12.9 PLT 221 230 302 MPV 9.7 9.6 9.2 BMP: Recent Labs 04/27/20 04204/27/20 0428 04/28/20 0416 04/28/2041504/28/20 1654 04/29/2044804/29/20 1104 NA 130* < > 129* < > 128* 135 126* K 4.5 -- 4.6 -- -- 4.4 -- CL 99 -- 99 -- -- 105 -- CO2 20 -- 21 -- -- 19* -- BUN 42* -- 43* -- -- 47* -- CREATININE 1.64* -- 1.44* -- -- 1.51* -- GLUCOSE 175* -- 254* -- -- 206* -- CALCIUM 8.3* -- 8.2* -- -- 8.6 -- < > = values in this interval not displayed. Phosphorus: No results for input(s): PHOS in the last 72 hours. Magnesium: Recent Labs 04/27/2042704/28/2041504/29/20448 MG 2.5 2.4 2.4 Albumin: Recent Labs 04/27/20 0428 LABALBU 3.1* IRON: No results for input(s): IRON in the last 72 hours. Iron Saturation: Invalid input(s): PERCENTFE TIBC: No results for input(s): TIBC in the last 72 hours. FERRITIN: Recent Labs 04/28/20 0416 FERRITIN 1,111* Radiology: Chest x-ray Ill-defined lateral left lung and bibasilar airspace disease suspicious for multifocal pneumonia, likely an atypical or viral pneumonia. Assessment: 1. Acute kidney injury on CKD stage 3 baseline serum creatinine is 1.8 mg/dL likely secondary to prerenal azotemia-improving renal function 2. Hyponatremia, hypoosmolar hyponatremia most likely secondary to use of hydrochlorothiazide Sodium 135 improved this morning and most recent 126 likely translocational with hyperglycemia-corrected sodium 129 3. COVID-19 pneumonia 4. Type 2 diabetes 5. Essential hypertension-BP improving Plan: 1. Basic metabolic panel daily. 2. Patient is receiving remdesivir-No contraindication from renal standpoint as GFR is > than 30 3. hydrochlorothiazide on hold due to hyponatremia 4. 1500 mls oral Fluid restriction-Lasix 20 mg p.o. daily 5. IV hydralazine 10 mg q. 6 hourly for systolic blood pressure greater than 160. Thank you for the consultation. * Wei eBrmudez MD - 04/29/2020 12:01 PM EST Pulmonary Progress Note [facility] Patient - Jourdan Arevalo, Age - 74 y.o. - 1945 [id number] Date of Admission - 04/23/2020 9:54 PM Consulting Service/Physician Consulting - Kip Gil MD Primary Care Physician - Dulce Maria Del Castillo MD Follow-up: Acute respiratory failure SUBJECTIVE Feeling the same No short of breath, coughs.little dark red sputum, no wheezing No chest pain, fever or chills No nausea vomiting or diarrhea On high flow nasal cannula 40 L and 65% FiO2 OBJECTIVE VITALS height is 5' 8 (1.727 m) and weight is 192 lb 14.4 oz (87.5 kg). His oral temperature is 98 F (36.7 C). His blood pressure is 142/61 (abnormal) and his pulse is 68. His respiration is 22 and oxygen saturation is 91%. Body mass index is 29.33 kg/m . Temperature Range: Temp: 98 F (36.7 C) Temp Av.8 F (36.6 C) Min: 97.4 F (36.3 C) Max: 98 F (36.7 C) BP Range: Systolic (24hrs), Av , Min:110 , Max:176 Diastolic (24hrs), Av, Min:61, Max:113 Pulse Range: Pulse Av.3 Min: 65 Max: 77 Respiration Range: Resp Av.2 Min: 15 Max: 24 Current Pulse Ox:: SpO2: 91 % 24HR Pulse Ox Range: SpO2 Av.9 % Min: 85 % Max: 95 % Oxygen Amount and Delivery: O2 Flow Rate (L/min): 40 L/min Wt Readings from Last 3 Encounters: 04/29/20 192 lb 14.4 oz (87.5 kg) I/O (24 Hours) Intake/Output Summary (Last 24 hours) at 04/29/2020 1201 Last data filed at 04/29/2020 0900 Gross per 24 hour Intake 370 ml Output 1525 ml Net -1155 ml EXAM General Appearance Awake, alert, in no acute distress HEENT - normocephalic, atraumatic. Neck -no JVD, trachea midline Lungs -coarse, decreased sounds, no wheezing, no distress Cardiovascular - Heart sounds are normal. Regular rate and rhythm Abdomen - Soft, nontender, nondistended, no guarding Neurologic -appropriate, following commands, Skin - No bruising or bleeding Extremities - No clubbing, cyanosis, edema MEDS budesonide-formoterol 2 puff Inhalation BID senna 1 tablet Oral BID insulin glargine 10 Units Subcutaneous BID atenolol 50 mg Oral Daily remdesivir IVPB 100 mg Intravenous Q24H sodium chloride flush 10 mL Intravenous 2 times per day heparin (porcine) 5,000 Units Subcutaneous 3 times per day dexamethasone 6 mg Oral Daily aspirin 81 mg Oral Daily insulin lispro 0-12 Units Subcutaneous TID WC insulin lispro 0-6 Units Subcutaneous Nightly albuterol sulfate HFA 2 puff Inhalation 4x daily And ipratropium 2 puff Inhalation 4x daily montelukast 10 mg Oral Daily tamsulosin 0.4 mg Oral Daily atorvastatin 10 mg Oral Daily amLODIPine 10 mg Oral Daily sodium chloride dextrose hydrALAZINE, zolpidem, sodium chloride, sodium chloride, sodium chloride flush, promethazine ORondansetron, magnesium hydroxide, acetaminophen OR acetaminophen, dextromethorphan, benzonatate, magnesium sulfate, potassium chloride OR potassium alternative oral replacement OR potassium chloride, glucose, dextrose, glucagon (rDNA), dextrose, albuterol sulfate HFA LABS CBC Recent Labs 04/29/20 0449 WBC 13.3* HGB 14.4 HCT 42.4 MCV 83.5 PLT 302 BMP: Lab Results Component Value Date NA 126 04/29/2020 K 4.4 04/29/2020 CL 105 04/29/2020 CO2 19 04/29/2020 BUN 47 04/29/2020 LABALBU 3.1 04/27/2020 CREATININE 1.51 04/29/2020 CALCIUM 8.6 04/29/2020 GFRAA 55 04/29/2020 LABGLOM 45 04/29/2020 ABGs:No results found for: PHART, PO2ART, [id number] No results found for: IFIO2, MODE, SETTIDVOL, SETPEEP Ionized Calcium: No results found for: IONCA Magnesium: Lab Results Component Value Date MG 2.4 04/29/2020 Phosphorus: No results found for: PHOS LIVER PROFILE Recent Labs 04/27/20 0428 AST 28 ALT 28 BILIDIR 0.11 BILITOT 0.26* ALKPHOS 58 INR No results for input(s): INR in the last 72 hours. PTT No results for input(s): APTT in the last 72 hours. BNP No results for input(s): BNP in the last 72 hours. RADIOLOGY (See actual reports for details) ASSESSMENT/PLAN Principal Problem: Pneumonia due to COVID-19 virus Active Problems: NAOMIE (acute kidney injury) (HCC) COPD (chronic obstructive pulmonary disease) (HCC) DM (diabetes mellitus) (HCC) Acute respiratory failure with hypoxia COPD with lower respiratory infection COVID-19 pneumonia Elevated inflammatory markers: Including CRP, LDH, ferritin, but unremarkable D-dimer Wean FiO2 as tolerated, discussed with patient and staff to adjust position and do proning Bronchodilators Day 5 of remdesivir, dexamethasone day 6, refused plasma , off antibiotic as per ID IS, flutter valve On heparin subcu Chest x-ray in a.m. * Julienne Estrada RCP - 04/29/2020 8:45 AM EST Pt continues to be on HFNC still requiring higher oxygen levels. Current settings 40LPm and FiO2 65%. Will continue to monitor and wean as tolerated. * Soledad Hill RN - 04/29/2020 6:09 AM EST RN called pt's Sharon to give an update per protocol. All questions answered with no concerns at this time. Informed day shift will call between 6 pm-8 pm per protocol for morning shift update. * Soledad Hill RN - 04/29/2020 5:[address] Baum notified of WBC 13.3 for morning lab, via [facility]. Yesterday WBC 9.6 * Giovanni Segal MD - 04/28/2020 11:00 PM EST IN-PATIENT SERVICE [facility] Internal Medicine Progress Note 04/28/2020 11:00 PM Name: Jourdan Arevalo Acct: [id number] Room: IP Day: 5 Admit Date: 04/23/2020 9:54 PM PCP: Dulce Maria Del Castillo MD Code Status: Full Code Subjective: C/C: Chief Complaint Patient presents with Positive For Covid-19 Interval History Status: Improving HPI: This patient is a 74 y.o. Non-/non malewho presents with fever and shortness of breath Positive COVID-19 test on 04/20/2020 Has been feeling progressively short of breath since, started to have fevers Denies chest pain abdominal pain nausea vomiting or diarrhea. Has been taking his inhalers but not helping. History of COPD hypertension hyperlipidemia type 2 diabetes. Review of Systems: Positive for shortness of breath, no cough Denies chest pain or palpitations Denies abdominal pain, diarrhea vomiting Denies any new numbness tremors or weakness. Medications: Allergies: No Known Allergies Current Meds: Scheduled Meds: budesonide-formoterol 2 puff Inhalation BID senna 1 tablet Oral BID insulin glargine 15 Units Subcutaneous Nightly atenolol 50 mg Oral Daily remdesivir IVPB 100 mg Intravenous Q24H sodium chloride flush 10 mL Intravenous 2 times per day heparin (porcine) 5,000 Units Subcutaneous 3 times per day dexamethasone 6 mg Oral Daily aspirin 81 mg Oral Daily insulin lispro 0-12 Units Subcutaneous TID WC insulin lispro 0-6 Units Subcutaneous Nightly albuterol sulfate HFA 2 puff Inhalation 4x daily And ipratropium 2 puff Inhalation 4x daily montelukast 10 mg Oral Daily tamsulosin 0.4 mg Oral Daily atorvastatin 10 mg Oral Daily amLODIPine 10 mg Oral Daily Continuous Infusions: sodium chloride dextrose PRN Meds: hydrALAZINE, zolpidem, sodium chloride, sodium chloride, sodium chloride flush, promethazine OR ondansetron, magnesium hydroxide, acetaminophen OR acetaminophen, dextromethorphan, benzonatate, magnesium sulfate, potassium chloride OR potassium alternative oral replacement OR potassium chloride, glucose, dextrose, glucagon (rDNA), dextrose, albuterol sulfate HFA Data: Past Medical History: has a past medical history of Arthritis, Chronic kidney disease, COPD (chronic obstructive pulmonary disease) (HCC), Diabetes mellitus (HCC), Hyperlipidemia, and Hypertension. Social History: reports that he has never smoked. He has never used smokeless tobacco. He reports that he does not drink alcohol or use drugs. Family History: History reviewed. No pertinent family history. Vitals: BP (!) 142/113 Pulse 72 Temp 97.7 F (36.5 C) (Oral) Resp 18 Ht 5' 8 (1.727 m) Wt 191 lb 9.3 oz (86.9 kg) SpO2 90% BMI 29.13 kg/m Temp (24hrs), Av.9 F (36.6 C), Min:97.6 F (36.4 C), Max:98.7 F (37.1 C) Recent Labs 04/28/20 0806 04/28/20 1133 04/28/20 1626 04/28/202119 POCGLU 207* 301* 308* 306* I/O (24Hr): Intake/Output Summary (Last 24 hours) at 04/28/2020 230 Last data filed at 04/28/20202120 Gross per 24 hour Intake 1798.33 ml Output 1250 ml Net 548.33 ml Labs: Lab Results Component Value Date WBC 9.6 04/28/2020 HGB 14.0 04/28/2020 HCT 40.9 (L) 04/28/2020 MCV 84.6 04/28/2020 PLT 230 04/28/2020 Lab Results Component Value Date NA 128 04/28/2020 K 4.6 04/28/2020 CL 99 04/28/2020 CO2 21 04/28/2020 BUN 43 04/28/2020 CREATININE 1.44 04/28/2020 GLUCOSE 254 04/28/2020 CALCIUM 8.2 04/28/2020 Lab Results Component Value Date/Time SPECIAL RAC 04/15/2012 12:36 AM SPECIAL NOT REPORTED 04/15/2012 12:36 AM SPECIAL NOT REPORTED 04/15/2012 12:36 AM SPECIAL NOT REPORTED 04/15/2012 12:36 AM Lab Results Component Value Date/Time CULTURE NO GROWTH 5 DAYS 04/15/2012 12:36 AM CULTURE 04/15/2012 12:36 AM Performed at [address] [place] [address] CULTURE 04/15/2012 12:36 AM CULTURE NO GROUP A BETA HEMOLYTIC STREPTOCOCCUS ISOLATED 04/15/2012 12:36 AM CULTURE 04/15/2012 12:36 AM Performed at [address] [place] [address] CULTURE 04/15/2012 12:36 AM Radiology: Recent data reviewed Physical Examination: Remainder of examination deferred due to excessive risk conferred by physical examination during a global pandemic due to coronavirus 19, in a setting where local and national supplies of personal protective equipment are depleted. Assessment: Primary Problem Pneumonia due to COVID-19 virus Active Hospital Problems Diagnosis Date Noted NAOMIE (acute kidney injury) ([facility]) [N17.9] 04/24/2020 COPD (chronic obstructive pulmonary disease) ([facility]) [J44.9] 04/24/2020 DM (diabetes mellitus) ([facility]) [E11.9] 04/24/2020 Pneumonia due to COVID-19 virus [U07.1, J12.82] 04/23/2020 DVT prophylaxis: Heparin Plan: 74-year-old male admitted with fever and shortness of breath 1. Pneumonia due to COVID-19 virus pulmonology, ID consulted started on Decadron, Rocephin and azithromycin, will add D-dimer 2. Acute hypoxic respiratory failure as evidenced by subjective shortness of breath and desaturation to 88% on room air 3. COPD continue home inhalers 4. Hyponatremia 130 at presentation, will check urine studies, nephrology consulted 5. NAOMIE on CKD stage IV-creatinine 2.49 at presentation, baseline 1.8 6. Type 2 diabetes with hyperglycemia, HbA1c 10.5 on 12/13/2019, 7.2 this admission, home Metformin and glipizide on hold, will initiate Lantus and sliding scale, blood sugars running high especially with steroids. 7. Hypertension continue home meds, currently controlled 1/3 D-dimer negative Saturating okay on room air 93% Sodium improved at 128, NAOMIE improving, creatinine 2.15 today. Patient on normal saline@50 cc/hr, nephrology following Blood sugars running high since patient on steroids, will increase Lantus Hydrochlorothiazide stopped due to hyponatremia, blood pressure running high will add atenolol. Apr 28 Taper oxygen as tolerated resp failure on high flowoxygen pulm input noted remdesivir crp is up to 54 from 20 Poor prognosis Hyponatremia off hctz Recheck in am 128 today Hyperglycemia blood sugar over 300 Change lantus to 10 bid from 15 daily Recent Labs 04/28/20 0416 CRP 29.1* LDH 366* PROCAL 0.16* FERRITIN 1,111* Giovanni Segal MD 04/28/2020 11:00 PM * Julienne Estrada RCP - 04/28/2020 5:00 PM EST Pt remains on HFNC, sitting in chair. Current settings are 35LPM and 60% FiO2. Will continue to monitor and attempt weaning of oxygen as tolerated * Shazia Tan RN - 04/28/2020 2:[address] Segal notified patient C/O constipation. Order received. * Inga Fofana PTA - 04/28/2020 2:26 PM EST Physical Therapy Facility/Department: [facility] ICU Daily Treatment Note NAME: Jourdan Arevalo : 1945 Date of Service: 04/28/2020 Discharge Recommendations: Assessment PT Education: Home Exercise Program Patient Education: reviewed written HEP Activity Tolerance Activity Tolerance: Patient Tolerated treatment well Patient Diagnosis(es): The primary encounter diagnosis was NAOMIE (acute kidney injury) (HCC). Diagnoses of Pneumonia due to COVID-19 virus and Elevated troponin were also pertinent to this visit. has a past medical history of Arthritis, Chronic kidney disease, COPD (chronic obstructive pulmonary disease) (HCC), Diabetes mellitus (HCC), Hyperlipidemia, and Hypertension. has no past surgical history on file. Restrictions Restrictions/Precautions Restrictions/Precautions: (COVID-19 POSITIVE) Subjective General Chart Reviewed: Yes Family / Caregiver Present: No Subjective Subjective: Verónica Mccray ok with therapy intervention today. patient agreeable to get out of bed and eat his lunch that arrived. patient pleasant and thankful to get out of bed. Pain Screening Patient Currently in Pain: Denies Vital Signs Patient Currently in Pain: Denies Orientation Cognition Objective Bed mobility Rolling to Left: Supervision Rolling to Right: Supervision Supine to Sit: Supervision Sit to Supine: Supervision Transfers Sit to Stand: Independent Stand to sit: Independent Bed to Chair: Independent Ambulation 1 Surface: level tile Device: No Device Other Apparatus: (high flow) Assistance: Supervision Distance: 5 feet on monitor nultiple line Comments: sao2 91% at rest, sao2 92% after ambulation. Stairs/Curb Stairs?: No Other exercises Other exercises 1: reviewed seated BLE therex with patient sitting in chair G-Code OutComes Score AM-PAC Score Goals Short term goals Time Frame for Short term goals: 2 visits Short term goal 1: Pt able to ambualte 100 to 150 ft in the room with least amount of suplemental o2, maintaining sao2 > 90%, safely Short term goal 2: Pt able to demonstrate good tech for HEP to cntinue at home Short term goal 3: Pt able to perform 6 step ups x 10 with 1 UE support, SBA Patient Goals Patient goals : Able to do steps Plan Plan Times per week: 2 to 3 x/week Specific instructions for Next Treatment: HEP and step ups Safety Devices Type of devices: Call light within reach, Left in bed Therapy Time Individual Concurrent Group Co-treatment Time In 1222 Time Out 1245 Minutes 23 Inga Fofana PTA * Wei Bermudez MD - 04/28/2020 12:57 PM EST Pulmonary Progress Note [facility] Patient - Jourdan Arevalo, Age - 74 y.o. - 1945 Room Number - N - [id number] Located Within [facility] # - [id number] Date of Admission - 04/23/2020 9:54 PM Consulting Service/Physician Consulting - Kip Gil MD Primary Care Physician - Dulce Maria Del Castillo MD Follow-up: Acute respiratory failure SUBJECTIVE Feeling better Resting in chair Not much short of breath, cough, or wheezing No chest pain, fever or chills No nausea vomiting or diarrhea On high flow nasal cannula 35 L and 60% FiO2 OBJECTIVE VITALS height is 5' 8 (1.727 m) and weight is 191 lb 9.3 oz (86.9 kg). His axillary temperature is 97.6 F(36.4 C). His blood pressure is 150/66 (abnormal) and his pulse is 67. His respiration is 18 and oxygen saturation is 92%. Body mass index is 29.13 kg/m . Temperature Range: Temp: 97.6 F (36.4 C) Temp Av F (36.7 C) Min: 97.6 F (36.4 C) Max: 98.7 F (37.1 C) BP Range: Systolic (24hrs), Av , Min:125 , Max:165 Diastolic (24hrs), Av, Min:46, Max:87 Pulse Range: Pulse Av.3 Min: 62 Max: 70 Respiration Range: Resp Av.8 Min: 15 Max: 26 Current Pulse Ox:: SpO2: 92 % 24HR Pulse Ox Range: SpO2 Av.3 % Min: 87 % Max: 94 % Oxygen Amount and Delivery: O2 Flow Rate (L/min): 35 L/min Wt Readings from Last 3 Encounters: 04/28/20 191 lb 9.3 oz (86.9 kg) I/O (24 Hours) Intake/Output Summary (Last 24 hours) at 04/28/2020 1257 Last data filed at 04/28/2020 1000 Gross per 24 hour Intake 1548.33 ml Output 950 ml Net 598.33 ml EXAM General Appearance Awake, alert, in no acute distress HEENT - normocephalic, atraumatic. Neck -no JVD, trachea midline Lungs -coarse, decreased sounds, no wheezing, no distress Cardiovascular - Heart sounds are normal. Regular rate and rhythm Abdomen - Soft, nontender, nondistended, no guarding Neurologic -appropriate, following commands, Skin - No bruising or bleeding Extremities - No clubbing, cyanosis, edema MEDS budesonide-formoterol 2 puff Inhalation BID insulin glargine 15 Units Subcutaneous Nightly atenolol 50 mg Oral Daily remdesivir IVPB 100 mg Intravenous Q24H sodium chloride flush 10 mL Intravenous 2 times per day heparin (porcine) 5,000 Units Subcutaneous 3 times per day dexamethasone 6 mg Oral Daily aspirin 81 mg Oral Daily insulin lispro 0-12 Units Subcutaneous TID WC insulin lispro 0-6 Units Subcutaneous Nightly albuterol sulfate HFA 2 puff Inhalation 4x daily And ipratropium 2 puff Inhalation 4x daily montelukast 10 mg Oral Daily tamsulosin 0.4 mg Oral Daily atorvastatin 10 mg Oral Daily amLODIPine 10 mg Oral Daily sodium chloride dextrose hydrALAZINE, zolpidem, sodium chloride, sodium chloride, sodium chloride flush, promethazine ORondansetron, magnesium hydroxide, acetaminophen OR acetaminophen, dextromethorphan, benzonatate, magnesium sulfate, potassium chloride OR potassium alternative oral replacement OR potassium chloride, glucose, dextrose, glucagon (rDNA), dextrose, albuterol sulfate HFA LABS CBC Recent Labs 04/28/20 0416 WBC 9.6 HGB 14.0 HCT 40.9* MCV 84.6 PLT 230 BMP: Lab Results Component Value Date NA 131 04/28/2020 K 4.6 04/28/2020 CL 99 04/28/2020 CO2 21 04/28/2020 BUN 43 04/28/2020 LABALBU 3.1 04/27/2020 CREATININE 1.44 04/28/2020 CALCIUM 8.2 04/28/2020 GFRAA 58 04/28/2020 LABGLOM 48 04/28/2020 ABGs:No results found for: PHART, PO2ART, IUR0UHN No results found for: IFIO2, MODE, SETTIDVOL, SETPEEP Ionized Calcium: No results found for: IONCA Magnesium: Lab Results Component Value Date MG 2.4 04/28/2020 Phosphorus: No results found for: PHOS LIVER PROFILE Recent Labs 04/27/20 0428 AST 28 ALT 28 BILIDIR 0.11 BILITOT 0.26* ALKPHOS 58 INR No results for input(s): INR in the last 72 hours. PTT No results for input(s): APTT in the last 72 hours. BNP No results for input(s): BNP in the last 72 hours. RADIOLOGY Increased bibasilar infiltrates left more the right (See actual reports for details) ASSESSMENT/PLAN Principal Problem: Pneumonia due to COVID-19 virus Active Problems: NAOMIE (acute kidney injury) (HCC) COPD (chronic obstructive pulmonary disease) (HCC) DM (diabetes mellitus) (HCC) Acute respiratory failure with hypoxia COPD with lower respiratory infection COVID-19 pneumonia Elevated inflammatory markers: Including CRP, LDH, ferritin, but unremarkable D-dimer Wean FiO2 as tolerated Bronchodilators Remdesivir, dexamethasone, plasma , antibiotic as per ID IS, flutter valve On heparin subcu * Eliezer Patterson MD - 04/28/2020 11:09 AM EST NEPHROLOGY PROGRESS NOTE Patient : Jourdan Arevalo; 74 y.o. Location: Attending: Kip Gil MD Admit Date: 04/23/2020 Hospital Day: 5 Interval history Patient was not seen [id number] due to COVID-19 isolation. Transferred to ICU for worsening respiratory distress currently on high flow oxygen NC 35 L 60 % fio2 Decreased shortness of breath today. No chest pain no nausea vomiting or diarrhea. Serum sodium is 131 mmol/l. Renal function is improving creatinine of 1.44 mg/dl. C-reactive protein is at elevated at 54. History of Present Illness: This is a 74 y.o. male with past medical history of type 2 diabetes, essential hypertension, CKD stage III with baseline creatinine of about 1.8 mg/dL, he follows up with [facility] tack[facility] in [facility] outpatient labs available, his last labs before this hospitalization was in 2011 and his creatinine at that time was 1.8 mg/dL. She admitted with complaints of cough fatigue shortness of breath that started a weeks ago, tested positive for Covid, and admitted for COVID-19 pneumonia Labs showed serum creatinine of 2.3 mg/dL on admission and therefore nephrology consultation has been requested Past Medical History: Diagnosis Date Arthritis Chronic kidney disease Stage III kidney disease COPD (chronic obstructive pulmonary disease) (HCC) Diabetes mellitus (HCC) Hyperlipidemia Hypertension Past Surgical History: History reviewed. No pertinent surgical history. Current Medications: budesonide-formoterol (SYMBICORT) 160-4.5 MCG/ACT inhaler 2 puff, BID hydrALAZINE (APRESOLINE) injection 10 mg, Q6H PRN insulin glargine (LANTUS) injection vial 15 Units, Nightly atenolol (TENORMIN) tablet 50 mg, Daily zolpidem (AMBIEN) tablet 5 mg, Nightly PRN cefTRIAXone (ROCEPHIN) 1 g IVPB in 50 mL D5W minibag, Q24H remdesivir 100 mg in sodium chloride 0.9 % 250 mL IVPB, Q24H 0.9 % sodium chloride bolus, PRN 0.9 % sodium chloride infusion, PRN sodium chloride flush 0.9 % injection 10 mL, 2 times per day sodium chloride flush 0.9 % injection 10 mL, PRN promethazine (PHENERGAN) tablet 12.5 mg, Q6H PRN Or ondansetron (ZOFRAN) injection 4 mg, Q6H PRN magnesium hydroxide (MILK OF MAGNESIA) 400 MG/5ML suspension 30 mL, Daily PRN acetaminophen (TYLENOL) tablet 650 mg, Q6H PRN Or acetaminophen (TYLENOL) suppository 650 mg, Q6H PRN heparin (porcine) injection 5,000 Units, 3 times per day dexamethasone (DECADRON) tablet 6 mg, Daily dextromethorphan (DELSYM) 30 MG/5ML extended release liquid 60 mg, Q12H PRN benzonatate (TESSALON) capsule 200 mg, TID PRN magnesium sulfate 1 g in dextrose 5% 100 mL IVPB, PRN potassium chloride (KLOR-CON M) extended release tablet 40 mEq, PRN Or potassium bicarb-citric acid (EFFER-K) effervescent tablet 40 mEq, PRN Or potassium chloride 10 mEq/100 mL IVPB (Peripheral Line), PRN aspirin chewable tablet 81 mg, Daily glucose (GLUTOSE) 40 % oral gel 15 g, PRN dextrose 50 % IV solution, PRN glucagon (rDNA) injection 1 mg, PRN dextrose 5 % solution, PRN insulin lispro (HUMALOG) injection vial 0-12 Units, TID WC insulin lispro (HUMALOG) injection vial 0-6 Units, Nightly albuterol sulfate HFA 108 (90 Base) MCG/ACT inhaler 2 puff, 4x daily And ipratropium (ATROVENT HFA) 17 MCG/ACT inhaler 2 puff, 4x daily albuterol sulfate HFA 108 (90 Base) MCG/ACT inhaler 2 puff, Q2H PRN montelukast (SINGULAIR) tablet 10 mg, Daily tamsulosin (FLOMAX) capsule 0.4 mg, Daily atorvastatin (LIPITOR) tablet 10 mg, Daily amLODIPine (NORVASC) tablet 10 mg, Daily Allergies: Patient has no known allergies. Social History: Social History Socioeconomic History Marital status: Spouse name: Not on file Number of children: Not on file Years of education: Not on file Highest education level: Not on file Occupational History Not on file Social Needs Financial resource strain: Not on file Food insecurity Worry: Not on file Inability: Not on file Transportation needs Medical: Not on file Non-medical: Not on file Tobacco Use Smoking status: Never Smoker Smokeless tobacco: Never Used Substance and Sexual Activity Alcohol use: No Drug use: No Sexual activity: Not on file Lifestyle Physical activity Days per week: Not on file Minutes per session: Not on file Stress: Not on file Relationships Social connections Talks on phone: Not on file Gets together: Not on file Attends jew service: Not on file Active member of club or organization: Not on file Attends meetings of clubs or organizations: Not on file Relationship status: Not on file Intimate partner violence Fear of current or ex partner: Not on file Emotionally abused: Not on file Physically abused: Not on file Forced sexual activity: Not on file Other Topics Concern Not on file Social History Narrative Not on file Family History: History reviewed. No pertinent family history. Review of Systems: Constitutional: No fever, + chills, no night sweats, +fatigue, generalized weakness, no loss of appetite HEENT: No headache, otalgia, itchy eyes, epistaxis, nasal discharge or sore throat. Cardiac: No chest pain, +dyspnea, orthopnea or PND, palpitations Chest: No cough, hemoptysis, pleuritic chest pain, wheezing,+SOB Abdomen: No abdominal pain, nausea, vomiting, diarrhea, melena, dysphagia hematemesis,constipation,abdominal bloating, flank pain Neuro: No CVA, TIA or seizure like activity. Skin: No rashes, no itching. : No hematuria, no pyuria, no dysuria, no flank pain. Extremities: No swelling or joint pains. Objective: CURRENT TEMPERATURE: Temp: 97.7 F (36.5 C) MAXIMUM TEMPERATURE OVER 24HRS: Temp (24hrs), Av.2 F (36.8 C), Min:97.7 F (36.5 C), Max:98.7 F (37.1 C) CURRENT RESPIRATORY RATE: Resp: 18 CURRENT PULSE: Pulse: 68 CURRENT BLOOD PRESSURE: BP: (!) 149/69 24HR BLOOD PRESSURE RANGE: Systolic (24hrs), Av , Min:125 , Max:169 ; Diastolic (24hrs), Av, Min:46, Max:91 24HR INTAKE/OUTPUT: Intake/Output Summary (Last 24 hours) at 04/28/2020 1109 Last data filed at 04/28/2020 0800 Gross per 24 hour Intake 1448.33 ml Output 1275 ml Net 173.33 ml Patient Vitals for the past 96 hrs (Last 3 readings): Weight 04/28/20 0558 191 lb 9.3 oz (86.9 kg) 04/26/20 0600 194 lb (88 kg) 04/25/20 0600 193 lb (87.5 kg) Physical Exam: Remainder of the examExcessive risk deferred due to excessive risk conferred by bedside physical exam during a global SARS Cov 2/COVID 19 pandemic, in a setting where local and national supplies of personal protective equipment are depleted. Labs: CBC: Recent Labs 04/26/20 0501 04/27/2042704/28/20415 WBC 13.6* 8.7 9.6 RBC 4.88 4.99 4.84 HGB 13.8 14.4 14.0 HCT 41.4 42.1 40.9* MCV 84.9 84.5 84.6 MCH 28.4 28.9 29.0 MCHC 33.4 34.2 34.3 RDW 13.3 13.3 13.4 PLT 230 221 230 MPV 9.1 9.7 9.6 BMP: Recent Labs 04/26/20 0501 04/26/20 0501 04/27/20 0428 04/27/20 0428 04/27/200 04/28/20 0416 04/28/20 1014 NA 132* < > 130* < > 128* 129* 131* K 4.5 -- 4.5 -- -- 4.6 -- CL 100 -- 99 -- -- 99 -- CO2 21 -- 20 -- -- 21 -- BUN 43* -- 42* -- -- 43* -- CREATININE 1.93* -- 1.64* -- -- 1.44* -- GLUCOSE 147* -- 175* -- -- 254* -- CALCIUM 8.4* -- 8.3* -- -- 8.2* -- < > = values in this interval not displayed. Phosphorus: No results for input(s): PHOS in the last 72 hours. Magnesium: Recent Labs 04/26/20 0501 04/27/20 0428 04/28/20 0416 MG 2.4 2.5 2.4 Albumin: Recent Labs 04/25/20191104/27/20 0428 LABALBU 4.0 3.1* IRON: No results for input(s): IRON in the last 72 hours. Iron Saturation: Invalid input(s): PERCENTFE TIBC: No results for input(s): TIBC in the last 72 hours. FERRITIN: Recent Labs 04/25/201911 FERRITIN 906* Radiology: Chest x-ray Ill-defined lateral left lung and bibasilar airspace disease suspicious for multifocal pneumonia, likely an atypical or viral pneumonia. Assessment: 1. Acute kidney injury on CKD stage 3 baseline serum creatinine is 1.8 mg/dL likely secondary to prerenal azotemia-improving renal function 2. Hyponatremia, hypoosmolar hyponatremia most likely secondary to use of hydrochlorothiazide 3. COVID-19 pneumonia 4. Type 2 diabetes 5. Essential hypertension-BP improving Plan: 1. IV Lasix 20 mg x 1 2. Patient is receiving remdesivir-No contraindication from renal standpoint as GFR is > than 30 3. hydrochlorothiazide on hold due to hyponatremia 4. 1500 mls oral Fluid restriction 5. IV hydralazine 10 mg q. 6 hourly for systolic blood pressure greater than 160. Thank you for the consultation. * Shazia Tan RN - 04/28/2020 10:[address] Baum roundmargy, discussed patients condition, needs, plan of care. Patient declining convalescent plasma and rational why. Ok with Dr. Baum for patient to decline. * Guanakito Baum MD - 04/28/2020 10:40 AM EST [facility] - Infectious diseases evaluation admission date 04/23/2020 reason for consultation: COVID Impression : Current: COVID 19 with possible superimposed bacterial infection Sepsis Acute kidney injury Leukocytosis resolved COPD Diabetes mellitus Recommendations Ceftriaxone day 6 will discontinue Remdesivir day 4 Patient is refusing convalescent plasma Decadron Heparin subcu Follow inflammatory markers Follow renal and liver function Supportive care Discussed with nursing staff Infection Control Recommendations Droplet Plus Precautions History of Present Illness: Initial history: Jourdan Arevalo is a 74 y.o.-year-old male presented to ED for low grade fever, SOB taht worsens with exertion. Denies chest pain, nausea, vomiting, diarrhea, loss of taste/smell. Pt has history of COPD, hypertension and diabetes. Interval changes 04/28/2020 The patient remains on high flow oxygen per nasal cannula, no reported fever, no increased shortness of breath, no new events. Chest x-ray 04/27/2019 showed progression of bilateral groundglass infiltrates. CT Chest 04/25/2019 showed patchy groundglass opacities in the lower lung zones Afebrile for more than 48 hours hours. T-max 101.1 on 04/26/2020 Imagin/1 CXR The patient is rotated to the left on this portable study. There is ill-defined airspace disease in the lateral left lower lung and at both lung bases. There is no pneumothorax or pleural fluid. The heart size is within normal limits. No acute bone finding Ill-defined lateral left lung and bibasilar airspace disease suspicious for multifocal pneumonia, likely an atypical or viral pneumonia. Patient Vitals for the past 8 hrs: BP Temp Temp src Pulse Resp SpO2 Weight 04/28/20 1000 (!) 149/69 68 18 91 % 04/28/20 0900 (!) 147/87 69 17 (!) 87 % 04/28/20 0848 19 (!) 88 % 04/28/20 0800 (!) 156/82 97.7 F (36.5 C) Oral 62 18 90 % 04/28/20 0700 (!) 165/70 66 19 91 % 04/28/20 0600 (!) 142/80 70 20 92 % 04/28/20 0558 191 lb 9.3 oz (86.9 kg) 04/28/20 0500 (!) 144/66 66 20 (!) 89 % 04/28/20 0417 16 (!) 89 % 04/28/20 0400 136/63 98.7 F (37.1 C) Oral 68 20 91 % 04/28/20 0300 (!) 125/51 70 26 92 % I have personally reviewed the past medical history, past surgical history, medications, social history, and family history, and I haveupdated the database accordingly. Allergies: Patient has no known allergies. Review of Systems: Review of Systems Constitutional: Positive for fever. HENT: Negative. Eyes: Negative. Respiratory: Positive for cough and shortness of breath. Cardiovascular: Negative. Negative for chest pain. Gastrointestinal: Negative. Genitourinary: Negative. Musculoskeletal: Negative. Skin: Negative. Physical Examination : Remainder of examination deferred due to excessive risk conferred by physical examination during a global pandemic due to coronavirus 19. In a setting where local and national supplies of personal protective equipment are depleted Past Medical History: Past Medical History: Diagnosis Date Arthritis Chronic kidney disease Stage III kidney disease COPD (chronic obstructive pulmonary disease) (HCC) Diabetes mellitus (HCC) Hyperlipidemia Hypertension Past Surgical History: History reviewed. No pertinent surgical history. Medications: budesonide-formoterol 2 puff Inhalation BID insulin glargine 15 Units Subcutaneous Nightly atenolol 50 mg Oral Daily cefTRIAXone (ROCEPHIN) IV 1 g Intravenous Q24H remdesivir IVPB 100 mg Intravenous Q24H sodium chloride flush 10 mL Intravenous 2 times per day heparin (porcine) 5,000 Units Subcutaneous 3 times per day dexamethasone 6 mg Oral Daily aspirin 81 mg Oral Daily insulin lispro 0-12 Units Subcutaneous TID WC insulin lispro 0-6 Units Subcutaneous Nightly albuterol sulfate HFA 2 puff Inhalation 4x daily And ipratropium 2 puff Inhalation 4x daily montelukast 10 mg Oral Daily tamsulosin 0.4 mg Oral Daily atorvastatin 10 mg Oral Daily amLODIPine 10 mg Oral Daily Social History: Social History Socioeconomic History Marital status: Spouse name: Not on file Number of children: Not on file Years of education: Not on file Highest education level: Not on file Occupational History Not on file Social Needs Financial resource strain: Not on file Food insecurity Worry: Not on file Inability: Not on file Transportation needs Medical: Not on file Non-medical: Not on file Tobacco Use Smoking status: Never Smoker Smokeless tobacco: Never Used Substance and Sexual Activity Alcohol use: No Drug use: No Sexual activity: Not on file Lifestyle Physical activity Days per week: Not on file Minutes per session: Not on file Stress: Not on file Relationships Social connections Talks on phone: Not on file Gets together: Not on file Attends jew service: Not on file Active member of club or organization: Not on file Attends meetings of clubs or organizations: Not on file Relationship status: Not on file Intimate partner violence Fear of current or ex partner: Not on file Emotionally abused: Not on file Physically abused: Not on file Forced sexual activity: Not on file Other Topics Concern Not on file Social History Narrative Not on file Family History: History reviewed. No pertinent family history. Medical Decision Making: I have independently reviewed/ordered the following labs: CBC with Differential: Recent Labs 04/27/2042704/28/20415 WBC 8.7 9.6 HGB 14.4 14.0 HCT 42.1 40.9* PLT 221 230 BMP: Recent Labs 04/27/2042704/27/20 0428 04/28/20 0416 04/28/20 1014 NA 130* < > 129* 131* K 4.5 -- 4.6 -- CL 99 -- 99 -- CO2 20 -- 21 -- BUN 42* -- 43* -- CREATININE 1.64* -- 1.44* -- MG 2.5 -- 2.4 -- < > = values in this interval not displayed. Hepatic Function Panel: Recent Labs 04/25/20 19104/27/20427 PROT 7.3 6.2* LABALBU 4.0 3.1* BILIDIR 0.09 0.11 IBILI 0.15 0.15 BILITOT 0.24* 0.26* ALKPHOS 71 58 ALT 31 28 AST 29 28 No results for input(s): RPR in the last 72 hours. No results for input(s): HIV in the last 72 hours. No results for input(s): BC in the last 72 hours. Lab Results Component Value Date CREATININE 1.44 04/28/2020 GLUCOSE 254 04/28/2020 Detailed results: Thank you for allowing us to participate in the care of this patient.Please call with questions. This note is created with the assistance of a speech recognition program. While intending to generate adocument that actually reflects the content of the visit, the document can still have some errors including those of syntax and sound a like substitutions which may escape proof reading. It such instances, actual meaningcan be extrapolated by contextual diversion. Guanakito Baum MD Office: [facility] / office [phone] * Mo Ware RN - 04/28/2020 6:18 AM EST Patient's Sharon called with an update. Questions answered * Giovanni Segal MD - 04/27/2020 10:51 PM EST IN-PATIENT SERVICE [facility] Internal Medicine Progress Note 04/27/2020 10:52 PM Name: Jourdan Arevalo Acct: [id number] Room: IP Day: 4 Admit Date: 04/23/2020 9:54 PM PCP: Dulce Maria Del Castillo MD Code Status: Full Code Subjective: C/C: Chief Complaint Patient presents with Positive For Covid-19 Interval History Status: Improving HPI: This patient is a 74 y.o. Non-/non malewho presents with fever and shortness of breath Positive COVID-19 test on 04/20/2020 Has been feeling progressively short of breath since, started to have fevers Denies chest pain abdominal pain nausea vomiting or diarrhea. Has been taking his inhalers but not helping. History of COPD hypertension hyperlipidemia type 2 diabetes. Review of Systems: Positive for shortness of breath, no cough Denies chest pain or palpitations Denies abdominal pain, diarrhea vomiting Denies any new numbness tremors or weakness. Medications: Allergies: No Known Allergies Current Meds: Scheduled Meds: budesonide-formoterol 2 puff Inhalation BID insulin glargine 15 Units Subcutaneous Nightly atenolol 50 mg Oral Daily cefTRIAXone (ROCEPHIN) IV 1 g Intravenous Q24H remdesivir IVPB 100 mg Intravenous Q24H sodium chloride flush 10 mL Intravenous 2 times per day heparin (porcine) 5,000 Units Subcutaneous 3 times per day dexamethasone 6 mg Oral Daily aspirin 81 mg Oral Daily insulin lispro 0-12 Units Subcutaneous TID WC insulin lispro 0-6 Units Subcutaneous Nightly albuterol sulfate HFA 2 puff Inhalation 4x daily And ipratropium 2 puff Inhalation 4x daily montelukast 10 mg Oral Daily tamsulosin 0.4 mg Oral Daily atorvastatin 10 mg Oral Daily amLODIPine 10 mg Oral Daily Continuous Infusions: sodium chloride 50 mL/hr at 04/27/20 2145 sodium chloride dextrose PRN Meds: hydrALAZINE, zolpidem, sodium chloride, sodium chloride, sodium chloride flush, promethazine OR ondansetron, magnesium hydroxide, acetaminophen OR acetaminophen, dextromethorphan, benzonatate, magnesium sulfate, potassium chloride OR potassium alternative oral replacement OR potassium chloride, glucose, dextrose, glucagon (rDNA), dextrose, albuterol sulfate HFA Data: Past Medical History: has a past medical history of Arthritis, Chronic kidney disease, COPD (chronic obstructive pulmonary disease) (HCC), Diabetes mellitus (HCC), Hyperlipidemia, and Hypertension. Social History: reports that he has never smoked. He has never used smokeless tobacco. He reports that he does not drink alcohol or use drugs. Family History: History reviewed. No pertinent family history. Vitals: BP (!) 164/78 Pulse 68 Temp 97.7 F (36.5 C) (Oral) Resp 18 Ht 5' 8 (1.727 m) Wt 194 lb (88 kg) SpO2 90% BMI 29.50 kg/m Temp (24hrs), Av.4 F (36.9 C), Min:97.7 F (36.5 C), Max:98.7 F (37.1 C) Recent Labs 04/26/20205004/27/20 1150 04/27/20 1724 04/27/20 1935 POCGLU 231* 200* 218* 292* I/O (24Hr): Intake/Output Summary (Last 24 hours) at 04/27/2020 2252 Last data filed at 04/27/2020 1222 Gross per 24 hour Intake Output 1576 ml Net -1576 ml Labs: Lab Results Component Value Date WBC 8.7 04/27/2020 HGB 14.4 04/27/2020 HCT 42.1 04/27/2020 MCV 84.5 04/27/2020 PLT 221 04/27/2020 Lab Results Component Value Date NA 128 04/27/2020 K 4.5 04/27/2020 CL 99 04/27/2020 CO2 20 04/27/2020 BUN 42 04/27/2020 CREATININE 1.64 04/27/2020 GLUCOSE 175 04/27/2020 CALCIUM 8.3 04/27/2020 Lab Results Component Value Date/Time SPECIAL RAC 04/15/2012 12:36 AM SPECIAL NOT REPORTED 04/15/2012 12:36 AM SPECIAL NOT REPORTED 04/15/2012 12:36 AM SPECIAL NOT REPORTED 04/15/2012 12:36 AM Lab Results Component Value Date/Time CULTURE NO GROWTH 5 DAYS 04/15/2012 12:36 AM CULTURE 04/15/2012 12:36 AM Performed at [address] [place] [id number] CULTURE 04/15/2012 12:36 AM CULTURE NO GROUP A BETA HEMOLYTIC STREPTOCOCCUS ISOLATED 04/15/2012 12:36 AM CULTURE 04/15/2012 12:36 AM Performed at [address] [place] [id number] CULTURE 04/15/2012 12:36 AM Radiology: Recent data reviewed Physical Examination: Remainder of examination deferred due to excessive risk conferred by physical examination during a global pandemic due to coronavirus 19, in a setting where local and national supplies of personal protective equipment are depleted. Assessment: Primary Problem Pneumonia due to COVID-19 virus Active Hospital Problems Diagnosis Date Noted NAOMIE (acute kidney injury) (HCC) [N17.9] 04/24/2020 COPD (chronic obstructive pulmonary disease) ([facility]) [J44.9] 04/24/2020 DM (diabetes mellitus) ([facility]) [E11.9] 04/24/2020 Pneumonia due to COVID-19 virus [U07.1, J12.82] 04/23/2020 DVT prophylaxis: Heparin Plan: 74-year-old male admitted with fever and shortness of breath 1. Pneumonia due to COVID-19 virus pulmonology, ID consulted started on Decadron, Rocephin and azithromycin, will add D-dimer 2. Acute hypoxic respiratory failure as evidenced by subjective shortness of breath and desaturation to 88% on room air 3. COPD continue home inhalers 4. Hyponatremia 130 at presentation, will check urine studies, nephrology consulted 5. NAOMIE on CKD stage IV-creatinine 2.49 at presentation, baseline 1.8 6. Type 2 diabetes with hyperglycemia, HbA1c 10.5 on 12/13/2019, 7.2 this admission, home Metformin and glipizide on hold, will initiate Lantus and sliding scale, blood sugars running high especially with steroids. 7. Hypertension continue home meds, currently controlled 1/3 D-dimer negative Saturating okay on room air 93% Sodium improved at 128, NAOMIE improving, creatinine 2.15 today. Patient on normal saline@50 cc/hr, nephrology following Blood sugars running high since patient on steroids, will increase Lantus Hydrochlorothiazide stopped due to hyponatremia, blood pressure running high will add atenolol. Apr 27 Taper oxygen as tolerated resp failure on high flowoxygen pulm input noted remdesivir crp is up to 54 from 20 Poor prognosis Hyponatremia off hctz Recheck in am Recent Labs 04/25/20191104/25/20191104/27/20 0428 CRP 20.4* < > 54.3* LDH 307* -- -- PROCAL 0.16* -- -- FERRITIN 906* -- -- < > = values in this interval not displayed. Giovanni Segal MD 04/27/2020 10:51 PM * Tien Walters RN - 04/27/2020 6:30 PM EST Regional Manager spoke with Sharon, patients for update. Questions answered. * Julienne Estrada RCP - 04/27/2020 2:53 PM EST Pt remains on vapotherm SpO2 90% on 35LPM and 65% FiO2 * Guanakito Baum MD - 04/27/2020 1:32 PM EST [facility] - Infectious diseases evaluation admission date 04/23/2020 reason for consultation: COVID Impression : Current: COVID 19 with possible superimposed bacterial infection Sepsis Acute kidney injury Leukocytosis - likely steroid induced COPD Diabetes mellitus Recommendations Ceftriaxone day 5 Remdesivir day 3 Convalescent plasma in process Decadron Heparin subcu Follow inflammatory markers Follow WBC Follow renal and liver function Supportive care Discussed with nursing staff Infection Control Recommendations Droplet Plus Precautions History of Present Illness: Initial history: Jourdan Arevalo is a 74 y.o.-year-old male presented to ED for low grade fever, SOB taht worsens with exertion. Denies chest pain, nausea, vomiting, diarrhea, loss of taste/smell. Pt has history of COPD, hypertension and diabetes. Interval changes 04/27/2020 The patient remains on high flow oxygen per nasal cannula 30 L and a 65% FiO2, cough and shortness of breath improving, and hallucinations last night, no acute events WBC normal, creatinine 1.64 CT Chest 04/25/2019 showed patchy groundglass opacities in the lower lung zones Afebrile for more than 24 hours. T-max 101.1 yesterday Chest x-ray from earlier today reviewed showed bilateral groundglass infiltrates. Imagin/1 CXR The patient is rotated to the left on this portable study. There is ill-defined airspace disease in the lateral left lower lung and at both lung bases. There is no pneumothorax or pleural fluid. The heart size is within normal limits. No acute bone finding Ill-defined lateral left lung and bibasilar airspace disease suspicious for multifocal pneumonia, likely an atypical or viral pneumonia. Patient Vitals for the past 8 hrs: BP Temp Temp src Pulse Resp SpO2 04/27/20 1222 27 91 % 04/27/20 1200 (!) 169/91 76 26 04/27/20 1100 (!) 166/83 68 22 91 % 04/27/20 1000 (!) 152/79 72 24 (!) 89 % 04/27/20 0900 (!) 155/78 70 23 90 % 04/27/20 0836 18 (!) 88 % 04/27/20 0800 (!) 163/82 98.5 F (36.9 C) Oral 69 18 91 % 04/27/20 0700 (!) 154/88 69 26 90 % 04/27/20 0615 (!) 168/78 69 20 91 % 04/27/20 0600 (!) 170/81 66 21 93 % 04/27/20 0545 (!) 164/78 66 20 94 % I have personally reviewed the past medical history, past surgical history, medications, social history, and family history, and I haveupdated the database accordingly. Allergies: Patient has no known allergies. Review of Systems: Review of Systems Constitutional: Positive for fever. HENT: Negative. Eyes: Negative. Respiratory: Positive for cough and shortness of breath. Cardiovascular: Negative. Negative for chest pain. Gastrointestinal: Negative. Genitourinary: Negative. Musculoskeletal: Negative. Skin: Negative. Physical Examination : Remainder of examination deferred due to excessive risk conferred by physical examination during a global pandemic due to coronavirus 19. In a setting where local and national supplies of personal protective equipment are depleted Past Medical History: Past Medical History: Diagnosis Date Arthritis Chronic kidney disease Stage III kidney disease COPD (chronic obstructive pulmonary disease) (HCC) Diabetes mellitus (HCC) Hyperlipidemia Hypertension Past Surgical History: History reviewed. No pertinent surgical history. Medications: budesonide-formoterol 2 puff Inhalation BID insulin glargine 15 Units Subcutaneous Nightly atenolol 50 mg Oral Daily cefTRIAXone (ROCEPHIN) IV 1 g Intravenous Q24H remdesivir IVPB 100 mg Intravenous Q24H sodium chloride flush 10 mL Intravenous 2 times per day heparin (porcine) 5,000 Units Subcutaneous 3 times per day dexamethasone 6 mg Oral Daily aspirin 81 mg Oral Daily insulin lispro 0-12 Units Subcutaneous TID WC insulin lispro 0-6 Units Subcutaneous Nightly albuterol sulfate HFA 2 puff Inhalation 4x daily And ipratropium 2 puff Inhalation 4x daily montelukast 10 mg Oral Daily tamsulosin 0.4 mg Oral Daily atorvastatin 10 mg Oral Daily amLODIPine 10 mg Oral Daily Social History: Social History Socioeconomic History Marital status: Spouse name: Not on file Number of children: Not on file Years of education: Not on file Highest education level: Not on file Occupational History Not on file Social Needs Financial resource strain: Not on file Food insecurity Worry: Not on file Inability: Not on file Transportation needs Medical: Not on file Non-medical: Not on file Tobacco Use Smoking status: Never Smoker Smokeless tobacco: Never Used Substance and Sexual Activity Alcohol use: No Drug use: No Sexual activity: Not on file Lifestyle Physical activity Days per week: Not on file Minutes per session: Not on file Stress: Not on file Relationships Social connections Talks on phone: Not on file Gets together: Not on file Attends jew service: Not on file Active member of club or organization: Not on file Attends meetings of clubs or organizations: Not on file Relationship status: Not on file Intimate partner violence Fear of current or ex partner: Not on file Emotionally abused: Not on file Physically abused: Not on file Forced sexual activity: Not on file Other Topics Concern Not on file Social History Narrative Not on file Family History: History reviewed. No pertinent family history. Medical Decision Making: I have independently reviewed/ordered the following labs: CBC with Differential: Recent Labs 04/26/20 05004/27/20427 WBC 13.6* 8.7 HGB 13.8 14.4 HCT 41.4 42.1 PLT 230 221 BMP: Recent Labs 04/26/20 0501 04/26/20 0501 04/27/20 0428 04/27/20 1231 NA 132* < > 130* 128* K 4.5 -- 4.5 -- CL 100 -- 99 -- CO2 21 -- 20 -- BUN 43* -- 42* -- CREATININE 1.93* -- 1.64* -- MG 2.4 -- 2.5 -- < > = values in this interval not displayed. Hepatic Function Panel: Recent Labs 04/25/20 1912 04/27/20 0428 PROT 7.3 6.2* LABALBU 4.0 3.1* BILIDIR 0.09 0.11 IBILI 0.15 0.15 BILITOT 0.24* 0.26* ALKPHOS 71 58 ALT 31 28 AST 29 28 No results for input(s): RPR in the last 72 hours. No results for input(s): HIV in the last 72 hours. No results for input(s): BC in the last 72 hours. Lab Results Component Value Date CREATININE 1.64 04/27/2020 GLUCOSE 175 04/27/2020 Detailed results: Thank you for allowing us to participate in the care of this patient.Please call with questions. This note is created with the assistance of a speech recognition program. While intending to generate adocument that actually reflects the content of the visit, the document can still have some errors including those of syntax and sound a like substitutions which may escape proof reading. It such instances, actual meaningcan be extrapolated by contextual diversion. Guanakito Baum MD Office: [facility] / office [phone] * Eliezer Patterson MD - 04/27/2020 11:39 AM EST NEPHROLOGY PROGRESS NOTE Patient : Jourdan Arevalo; 74 y.o. Location: Attending: Kip Gil MD Admit Date: 04/23/2020 Hospital Day: 4 Interval history Patient was not seen [id number] due to COVID-19 isolation. Transferred to ICU for worsening respiratory distress currently on high flow oxygen NC 30 % 65 % fio2 Decreased shortness of breath today. No chest pain no nausea vomiting or diarrhea. Serum sodium is 130 mmol/l. Renal function is improving creatinine of 1.64 mg/dl. C-reactive protein is at elevated at 54. History of Present Illness: This is a 74 y.o. male with past medical history of type 2 diabetes, essential hypertension, CKD stage III with baseline creatinine of about 1.8 mg/dL, he follows up with [facility] tacker in [facility] outpatient labs available, his last labs before this hospitalization was in 2011 and his creatinine at that time was 1.8 mg/dL. She admitted with complaints of cough fatigue shortness of breath that started a weeks ago, tested positive for Covid, and admitted for COVID-19 pneumonia Labs showed serum creatinine of 2.3 mg/dL on admission and therefore nephrology consultation has been requested Past Medical History: Diagnosis Date Arthritis Chronic kidney disease Stage III kidney disease COPD (chronic obstructive pulmonary disease) (HCC) Diabetes mellitus (HCC) Hyperlipidemia Hypertension Past Surgical History: History reviewed. No pertinent surgical history. Current Medications: budesonide-formoterol (SYMBICORT) 160-4.5 MCG/ACT inhaler 2 puff, BID insulin glargine (LANTUS) injection vial 15 Units, Nightly atenolol (TENORMIN) tablet 50 mg, Daily zolpidem (AMBIEN) tablet 5 mg, Nightly PRN cefTRIAXone (ROCEPHIN) 1 g IVPB in 50 mL D5W minibag, Q24H remdesivir 100 mg in sodium chloride 0.9 % 250 mL IVPB, Q24H 0.9 % sodium chloride bolus, PRN 0.9 % sodium chloride infusion, PRN sodium chloride flush 0.9 % injection 10 mL, 2 times per day sodium chloride flush 0.9 % injection 10 mL, PRN promethazine (PHENERGAN) tablet 12.5 mg, Q6H PRN Or ondansetron (ZOFRAN) injection 4 mg, Q6H PRN magnesium hydroxide (MILK OF MAGNESIA) 400 MG/5ML suspension 30 mL, Daily PRN acetaminophen (TYLENOL) tablet 650 mg, Q6H PRN Or acetaminophen (TYLENOL) suppository 650 mg, Q6H PRN heparin (porcine) injection 5,000 Units, 3 times per day dexamethasone (DECADRON) tablet 6 mg, Daily dextromethorphan (DELSYM) 30 MG/5ML extended release liquid 60 mg, Q12H PRN benzonatate (TESSALON) capsule 200 mg, TID PRN magnesium sulfate 1 g in dextrose 5% 100 mL IVPB, PRN potassium chloride (KLOR-CON M) extended release tablet 40 mEq, PRN Or potassium bicarb-citric acid (EFFER-K) effervescent tablet 40 mEq, PRN Or potassium chloride 10 mEq/100 mL IVPB (Peripheral Line), PRN aspirin chewable tablet 81 mg, Daily glucose (GLUTOSE) 40 % oral gel 15 g, PRN dextrose 50 % IV solution, PRN glucagon (rDNA) injection 1 mg, PRN dextrose 5 % solution, PRN insulin lispro (HUMALOG) injection vial 0-12 Units, TID WC insulin lispro (HUMALOG) injection vial 0-6 Units, Nightly albuterol sulfate HFA 108 (90 Base) MCG/ACT inhaler 2 puff, 4x daily And ipratropium (ATROVENT HFA) 17 MCG/ACT inhaler 2 puff, 4x daily albuterol sulfate HFA 108 (90 Base) MCG/ACT inhaler 2 puff, Q2H PRN montelukast (SINGULAIR) tablet 10 mg, Daily tamsulosin (FLOMAX) capsule 0.4 mg, Daily atorvastatin (LIPITOR) tablet 10 mg, Daily amLODIPine (NORVASC) tablet 10 mg, Daily 0.9 % sodium chloride infusion, Continuous Allergies: Patient has no known allergies. Social History: Social History Socioeconomic History Marital status: Spouse name: Not on file Number of children: Not on file Years of education: Not on file Highest education level: Not on file Occupational History Not on file Social Needs Financial resource strain: Not on file Food insecurity Worry: Not on file Inability: Not on file Transportation needs Medical: Not on file Non-medical: Not on file Tobacco Use Smoking status: Never Smoker Smokeless tobacco: Never Used Substance and Sexual Activity Alcohol use: No Drug use: No Sexual activity: Not on file Lifestyle Physical activity Days per week: Not on file Minutes per session: Not on file Stress: Not on file Relationships Social connections Talks on phone: Not on file Gets together: Not on file Attends jew service: Not on file Active member of club or organization: Not on file Attends meetings of clubs or organizations: Not on file Relationship status: Not on file Intimate partner violence Fear of current or ex partner: Not on file Emotionally abused: Not on file Physically abused: Not on file Forced sexual activity: Not on file Other Topics Concern Not on file Social History Narrative Not on file Family History: History reviewed. No pertinent family history. Review of Systems: Constitutional: No fever, + chills, no night sweats, +fatigue, generalized weakness, no loss of appetite HEENT: No headache, otalgia, itchy eyes, epistaxis, nasal discharge or sore throat. Cardiac: No chest pain, +dyspnea, orthopnea or PND, palpitations Chest: No cough, hemoptysis, pleuritic chest pain, wheezing,+SOB Abdomen: No abdominal pain, nausea, vomiting, diarrhea, melena, dysphagia hematemesis,constipation,abdominal bloating, flank pain Neuro: No CVA, TIA or seizure like activity. Skin: No rashes, no itching. : No hematuria, no pyuria, no dysuria, no flank pain. Extremities: No swelling or joint pains. Objective: CURRENT TEMPERATURE: Temp: 98.5 F (36.9 C) MAXIMUM TEMPERATURE OVER 24HRS: Temp (24hrs), Av.3 F (36.8 C), Min:97.7 F (36.5 C), Max:98.7 F (37.1 C) CURRENT RESPIRATORY RATE: Resp: 24 CURRENT PULSE: Pulse: 72 CURRENT BLOOD PRESSURE: BP: (!) 152/79 24HR BLOOD PRESSURE RANGE: Systolic (24hrs), Av , Min:130 , Max:177 ; Diastolic (24hrs), Av, Min:55, Max:89 24HR INTAKE/OUTPUT: Intake/Output Summary (Last 24 hours) at 04/27/2020 1139 Last data filed at 04/27/2020 0800 Gross per 24 hour Intake Output 1350 ml Net -1350 ml Patient Vitals for the past 96 hrs (Last 3 readings): Weight 04/26/20 0600 194 lb (88 kg) 04/25/20 0600 193 lb (87.5 kg) 04/24/20 0050 193 lb 5.5 oz (87.7 kg) Physical Exam: Remainder of the examExcessive risk deferred due to excessive risk conferred by bedside physical exam during a global SARS Cov 2/COVID 19 pandemic, in a setting where local and national supplies of personal protective equipment are depleted. Labs: CBC: Recent Labs 04/25/20 0513 04/26/20 0501 04/27/20 0428 WBC 14.1* 13.6* 8.7 RBC 5.00 4.88 4.99 HGB 14.3 13.8 14.4 HCT 42.2 41.4 42.1 MCV 84.4 84.9 84.5 MCH 28.5 28.4 28.9 MCHC 33.8 33.4 34.2 RDW 13.2 13.3 13.3 PLT 240 230 221 MPV 8.8 9.1 9.7 BMP: Recent Labs 04/25/20 0513 04/25/20 0513 04/26/20 0501 04/26/20 0501 04/26/20 1702 04/27/20 0107 04/27/20 0428 NA 130* < > 132* < > 130* 129* 130* K 4.5 -- 4.5 -- -- -- 4.5 CL 97* -- 100 -- -- -- 99 CO2 -- -- -- 20 BUN 43* -- 43* -- -- -- 42* CREATININE 2.15* -- 1.93* -- -- -- 1.64* GLUCOSE 255* -- 147* -- -- -- 175* CALCIUM 8.4* -- 8.4* -- -- -- 8.3* < > = values in this interval not displayed. Phosphorus: No results for input(s): PHOS in the last 72 hours. Magnesium: Recent Labs 04/25/20 0504/26/20 0501 04/27/20 0428 MG 2.4 2.4 2.5 Albumin: Recent Labs 04/25/20 19104/27/20 0428 LABALBU 4.0 3.1* IRON: No results for input(s): IRON in the last 72 hours. Iron Saturation: Invalid input(s): PERCENTFE TIBC: No results for input(s): TIBC in the last 72 hours. FERRITIN: Recent Labs 04/25/201911 FERRITIN 906* Radiology: Chest x-ray Ill-defined lateral left lung and bibasilar airspace disease suspicious for multifocal pneumonia, likely an atypical or viral pneumonia. Assessment: 1. Acute kidney injury on CKD stage 3 baseline serum creatinine is 1.8 mg/dL likely secondary to prerenal azotemia-improving renal function 2. Hyponatremia, hypoosmolar hyponatremia most likely secondary to use of hydrochlorothiazide 3. COVID-19 pneumonia 4. Type 2 diabetes 5. Essential hypertension-not optimal Plan: 1. continue IV fluids normal saline at 50 cc/hr for one more day-discontinue tomorrow as oral intake is improving. 2. Patient is receiving remdesivir-No contraindication from renal standpoint as GFR is less than 30 3. hydrochlorothiazide on hold due to hyponatremia 4. 1500 mls oral Fluid restriction 5. IV hydralazine 10 mg q. 6 hourly for systolic blood pressure greater than 160. Thank you for the consultation. * Wei Bermudez MD - 04/27/2020 11:05 AM EST Pulmonary Progress Note [facility] Patient - Jourdan Arevalo, Age - 74 y.o. - 1945 Room Number - N - [id number] Located Within [facility] # - [id number] Date of Admission - 04/23/2020 9:54 PM Consulting Service/Physician Consulting - Kip Gil MD Primary Care Physician - Dulce Maria Del Castillo MD Follow-up: Acute respiratory failure SUBJECTIVE Noted some hallucination last night, better now Looks, more appropriate, noted that he is feeling better Decreased short of breath and dry cough, no wheezing No chest pain, fever or chills No nausea vomiting or diarrhea On high flow nasal cannula 30 L and 65% FiO2 OBJECTIVE VITALS height is 5' 8 (1.727 m) and weight is 194 lb (88 kg). His oral temperature is 98.5 F (36.9 C). His blood pressure is 152/79 (abnormal) and his pulse is 72. His respiration is 24 and oxygen saturation is 89% (abnormal). Body mass index is 29.5 kg/m . Temperature Range: Temp: 98.5 F (36.9 C) Temp Av.3 F (36.8 C) Min: 97.7 F (36.5 C) Max: 98.7 F(37.1 C) BP Range: Systolic (24hrs), Av , Min:130 , Max:177 Diastolic (24hrs), Av, Min:55, Max:89 Pulse Range: Pulse Av.9 Min: 66 Max: 81 Respiration Range: Resp Av.7 Min: 12 Max: 26 Current Pulse Ox:: SpO2: (!) 89 % 24HR Pulse Ox Range: SpO2 Av.4 % Min: 87 % Max: 94 % Oxygen Amount and Delivery: O2 Flow Rate (L/min): 30 L/min Wt Readings from Last 3 Encounters: 04/26/20 194 lb (88 kg) I/O (24 Hours) Intake/Output Summary (Last 24 hours) at 04/27/2020 1105 Last data filed at 04/27/2020 0800 Gross per 24 hour Intake Output 1350 ml Net -1350 ml EXAM General Appearance Awake, alert, in no acute distress HEENT - normocephalic, atraumatic. Neck -no JVD, trachea midline Lungs -coarse, decreased sounds, mild wheezing, no distress Cardiovascular - Heart sounds are normal. Regular rate and rhythm Abdomen - Soft, nontender, nondistended, no guarding Neurologic -appropriate, following commands, oriented x3 Skin - No bruising or bleeding Extremities - No clubbing, cyanosis, edema MEDS budesonide-formoterol 2 puff Inhalation BID insulin glargine 15 Units Subcutaneous Nightly atenolol 50 mg Oral Daily cefTRIAXone (ROCEPHIN) IV 1 g Intravenous Q24H remdesivir IVPB 100 mg Intravenous Q24H sodium chloride flush 10 mL Intravenous 2 times per day heparin (porcine) 5,000 Units Subcutaneous 3 times per day dexamethasone 6 mg Oral Daily aspirin 81 mg Oral Daily insulin lispro 0-12 Units Subcutaneous TID WC insulin lispro 0-6 Units Subcutaneous Nightly albuterol sulfate HFA 2 puff Inhalation 4x daily And ipratropium 2 puff Inhalation 4x daily montelukast 10 mg Oral Daily tamsulosin 0.4 mg Oral Daily atorvastatin 10 mg Oral Daily amLODIPine 10 mg Oral Daily sodium chloride dextrose sodium chloride 50 mL/hr at 04/26/20 1933 zolpidem, sodium chloride, sodium chloride, sodium chloride flush, promethazine OR ondansetron,magnesium hydroxide, acetaminophen OR acetaminophen, dextromethorphan, benzonatate, magnesium sulfate, potassium chloride OR potassium alternative oral replacement OR potassium chloride, glucose, dextrose, glucagon (rDNA), dextrose, albuterol sulfate HFA LABS CBC Recent Labs 04/27/20427 WBC 8.7 HGB 14.4 HCT 42.1 MCV 84.5 PLT 221 BMP: Lab Results Component Value Date NA 130 04/27/2020 K 4.5 04/27/2020 CL 99 04/27/2020 CO2 20 04/27/2020 BUN 42 04/27/2020 LABALBU 3.1 04/27/2020 CREATININE 1.64 04/27/2020 CALCIUM 8.3 04/27/2020 GFRAA 50 04/27/2020 LABGLOM 41 04/27/2020 ABGs:No results found for: PHART, PO2ART, [id number] No results found for: IFIO2, MODE, SETTIDVOL, SETPEEP Ionized Calcium: No results found for: IONCA Magnesium: Lab Results Component Value Date MG 2.5 04/27/2020 Phosphorus: No results found for: PHOS LIVER PROFILE Recent Labs 04/27/20427 AST 28 ALT 28 BILIDIR 0.11 BILITOT 0.26* ALKPHOS 58 INR No results for input(s): INR in the last 72 hours. PTT No results for input(s): APTT in the last 72 hours. BNP No results for input(s): BNP in the last 72 hours. RADIOLOGY Increased bibasilar infiltrates left more the right (See actual reports for details) ASSESSMENT/PLAN Principal Problem: Pneumonia due to COVID-19 virus Active Problems: NAOMIE (acute kidney injury) (HCC) COPD (chronic obstructive pulmonary disease) (HCC) DM (diabetes mellitus) (HCC) Acute respiratory failure with hypoxia COPD with lower respiratory infection COVID-19 pneumonia Elevated inflammatory markers: Including CRP, LDH, ferritin, but unremarkable D-dimer Wean FiO2 as tolerated Bronchodilators Remdesivir, dexamethasone, plasma , antibiotic as per ID IS, flutter valve On heparin subcu Discussed with staff * Kip Gil MD - 04/27/2020 10:41 AM EST Physician Progress Note PATIENT: JOURDAN AREVALO [facility] #: [id number] : 1945 ADMIT DATE: 04/23/2020 9:54 PM DISCH DATE: RESPONDING PROVIDER #: KIP GIL MD QUERY TEXT: Pt admitted with COVID-19 pneumonia. Noted documentation of sepsis in ID consult note dated 04/25/2020. If possible, please document in progress notes and discharge summary: The medical record reflects the following: Risk Factors: 74 yr old male, DM, positive covid test on 04/20 Clinical Indicators: Temp max 101.1, CRP 28-->47, procal 0.21, HR max 98, WBC wnl then increased (on decadron), creat 2.49 (baseline 1.8), hypoxia Treatment: Admit, Pulm & ID consult, Rocephin & Zithromax, IV remdesevir, maintenance IVF Options provided: -- Sepsis confirmed present on admission -- Sepsis confirmed not present on admission -- Sepsis ruled out -- Other - I will add my own diagnosis -- Disagree - Not applicable / Not valid -- Disagree - Clinically unable to determine / Unknown -- Refer to Clinical Documentation Reviewer PROVIDER RESPONSE TEXT: The diagnosis of Sepsis was confirmed as present on admission. Query created by: Oxana Bhatt on 04/26/2020 7:36 AM Electronically signed by: KIP GIL MD 04/27/2020 10:40 AM * Julienne Estrada RCP - 04/27/2020 8:37 AM EST Pt continues to be on HFNC 30LPM 65%. I strongly encourage pt to lay on side. He stated he would try it later. I will continue to monitor and encourage pt to do so. * Tien Walters RN - 04/27/2020 8:28 AM EST Spoke to patients Sharon for update. Discussed his bout of confusion overnight, and him needinghigh flow oxygen. She is concerned about him coming home and still having the virus so she is asking about him being retested. I told her at this time he would not be able to go home due to the high flow oxygen requirements. All questions answered. * Brannon Pratt RN - 04/27/2020 6:54 AM EST Updated pt's son Manuel over the phone. Educated him on the call protocol. * Brannon Pratt RN - 04/27/2020 3:51 AM EST Regional Manager responded to bed alarm. Pt found out of bed with high flow removed and Peripheral IV removedfrom right arm. Pt was placed back on high flow nasal cannula and sp02 returned to 90's. Pt was alert and oriented to person, date, and time. However, was confused on where he was at and his current situation. * Eliezer Patterson MD - 04/26/2020 5:57 PM EST NEPHROLOGY PROGRESS NOTE Patient : Jourdan Arevalo; 74 y.o. Location: Attending: Kip Gil MD Admit Date: 04/23/2020 Hospital Day: 3 Interval history Patient was not seen [id number] due to COVID-19 isolation. Patient has increased work of breathing and currently on 5 L nasal cannula oxygen. Noted shortness of breath and dry cough. No chest pain no nausea vomiting or diarrhea. Serum sodium is 130 mmol/l. Renal function is stable creatinine of 1.9 mg/dl. C-reactive protein was elevated at 47. History of Present Illness: This is a 74 y.o. male with past medical history of type 2 diabetes, essential hypertension, CKD stage III with baseline creatinine of about 1.8 mg/dL, he follows up with bar tacker in [facility] outpatient labs available, his last labs before this hospitalization was in 2011 and his creatinine at that time was 1.8 mg/dL. She admitted with complaints of cough fatigue shortness of breath that started a weeks ago, tested positive for Covid, and admitted for COVID-19 pneumonia Labs showed serum creatinine of 2.3 mg/dL on admission and therefore nephrology consultation has been requested Past Medical History: Diagnosis Date Arthritis Chronic kidney disease Stage III kidney disease COPD (chronic obstructive pulmonary disease) (HCC) Diabetes mellitus (HCC) Hyperlipidemia Hypertension Past Surgical History: History reviewed. No pertinent surgical history. Current Medications: budesonide-formoterol (SYMBICORT) 160-4.5 MCG/ACT inhaler 2 puff, BID insulin glargine (LANTUS) injection vial 15 Units, Nightly atenolol (TENORMIN) tablet 50 mg, Daily zolpidem (AMBIEN) tablet 5 mg, Nightly PRN cefTRIAXone (ROCEPHIN) 1 g IVPB in 50 mL D5W minibag, Q24H remdesivir 100 mg in sodium chloride 0.9 % 250 mL IVPB, Q24H 0.9 % sodium chloride bolus, PRN 0.9 % sodium chloride infusion, PRN sodium chloride flush 0.9 % injection 10 mL, 2 times per day sodium chloride flush 0.9 % injection 10 mL, PRN promethazine (PHENERGAN) tablet 12.5 mg, Q6H PRN Or ondansetron (ZOFRAN) injection 4 mg, Q6H PRN magnesium hydroxide (MILK OF MAGNESIA) 400 MG/5ML suspension 30 mL, Daily PRN acetaminophen (TYLENOL) tablet 650 mg, Q6H PRN Or acetaminophen (TYLENOL) suppository 650 mg, Q6H PRN heparin (porcine) injection 5,000 Units, 3 times per day dexamethasone (DECADRON) tablet 6 mg, Daily dextromethorphan (DELSYM) 30 MG/5ML extended release liquid 60 mg, Q12H PRN benzonatate (TESSALON) capsule 200 mg, TID PRN magnesium sulfate 1 g in dextrose 5% 100 mL IVPB, PRN potassium chloride (KLOR-CON M) extended release tablet 40 mEq, PRN Or potassium bicarb-citric acid (EFFER-K) effervescent tablet 40 mEq, PRN Or potassium chloride 10 mEq/100 mL IVPB (Peripheral Line), PRN aspirin chewable tablet 81 mg, Daily glucose (GLUTOSE) 40 % oral gel 15 g, PRN dextrose 50 % IV solution, PRN glucagon (rDNA) injection 1 mg, PRN dextrose 5 % solution, PRN insulin lispro (HUMALOG) injection vial 0-12 Units, TID WC insulin lispro (HUMALOG) injection vial 0-6 Units, Nightly albuterol sulfate HFA 108 (90 Base) MCG/ACT inhaler 2 puff, 4x daily And ipratropium (ATROVENT HFA) 17 MCG/ACT inhaler 2 puff, 4x daily albuterol sulfate HFA 108 (90 Base) MCG/ACT inhaler 2 puff, Q2H PRN montelukast (SINGULAIR) tablet 10 mg, Daily tamsulosin (FLOMAX) capsule 0.4 mg, Daily atorvastatin (LIPITOR) tablet 10 mg, Daily amLODIPine (NORVASC) tablet 10 mg, Daily 0.9 % sodium chloride infusion, Continuous Allergies: Patient has no known allergies. Social History: Social History Socioeconomic History Marital status: Spouse name: Not on file Number of children: Not on file Years of education: Not on file Highest education level: Not on file Occupational History Not on file Social Needs Financial resource strain: Not on file Food insecurity Worry: Not on file Inability: Not on file Transportation needs Medical: Not on file Non-medical: Not on file Tobacco Use Smoking status: Never Smoker Smokeless tobacco: Never Used Substance and Sexual Activity Alcohol use: No Drug use: No Sexual activity: Not on file Lifestyle Physical activity Days per week: Not on file Minutes per session: Not on file Stress: Not on file Relationships Social connections Talks on phone: Not on file Gets together: Not on file Attends jew service: Not on file Active member of club or organization: Not on file Attends meetings of clubs or organizations: Not on file Relationship status: Not on file Intimate partner violence Fear of current or ex partner: Not on file Emotionally abused: Not on file Physically abused: Not on file Forced sexual activity: Not on file Other Topics Concern Not on file Social History Narrative Not on file Family History: History reviewed. No pertinent family history. Review of Systems: Constitutional: No fever, + chills, no night sweats, +fatigue, generalized weakness, no loss of appetite HEENT: No headache, otalgia, itchy eyes, epistaxis, nasal discharge or sore throat. Cardiac: No chest pain, +dyspnea, orthopnea or PND, palpitations Chest: No cough, hemoptysis, pleuritic chest pain, wheezing,+SOB Abdomen: No abdominal pain, nausea, vomiting, diarrhea, melena, dysphagia hematemesis,constipation,abdominal bloating, flank pain Neuro: No CVA, TIA or seizure like activity. Skin: No rashes, no itching. : No hematuria, no pyuria, no dysuria, no flank pain. Extremities: No swelling or joint pains. Objective: CURRENT TEMPERATURE: Temp: 97.7 F (36.5 C) MAXIMUM TEMPERATURE OVER 24HRS: Temp (24hrs), Av.4 F (37.4 C), Min:97.7 F (36.5 C), Max:101.1 F(38.4 C) CURRENT RESPIRATORY RATE: Resp: 23 CURRENT PULSE: Pulse: 71 CURRENT BLOOD PRESSURE: BP: (!) 153/58 24HR BLOOD PRESSURE RANGE: Systolic (24hrs), Av , Min:132 , Max:160 ; Diastolic (24hrs), Av, Min:54, Max:90 24HR INTAKE/OUTPUT: Intake/Output Summary (Last 24 hours) at 04/26/2020 1757 Last data filed at 04/26/2020 0845 Gross per 24 hour Intake 240 ml Output 500 ml Net -260 ml Patient Vitals for the past 96 hrs (Last 3 readings): Weight 04/26/20 0600 194 lb (88 kg) 04/25/20 0600 193 lb (87.5 kg) 04/24/20 0050 193 lb 5.5 oz (87.7 kg) Physical Exam: Remainder of the examExcessive risk deferred due to excessive risk conferred by bedside physical exam during a global SARS Cov 2/COVID 19 pandemic, in a setting where local and national supplies of personal protective equipment are depleted. Labs: CBC: Recent Labs 04/24/20 0445 04/25/20 0513 04/26/20 0501 WBC 8.7 14.1* 13.6* RBC 4.78 5.00 4.88 HGB 13.8 14.3 13.8 HCT 40.4* 42.2 41.4 MCV 84.6 84.4 84.9 MCH 28.9 28.5 28.4 MCHC 34.2 33.8 33.4 RDW 13.4 13.2 13.3 PLT 230 240 230 MPV 9.0 8.8 9.1 BMP: Recent Labs 04/24/20 1411 04/24/20 1411 04/25/20 0513 04/25/20 0513 04/26/20 0501 04/26/20 1022 04/26/20 1702 NA 127* < > 130* < > 132* 131* 130* K 4.8 -- 4.5 -- 4.5 -- -- CL 94* -- 97* -- 100 -- -- CO2 18* -- 21 -- 21 -- -- BUN 42* -- 43* -- 43* -- -- CREATININE 2.23* -- 2.15* -- 1.93* -- -- GLUCOSE 290* -- 255* -- 147* -- -- CALCIUM 8.5* -- 8.4* -- 8.4* -- -- < > = values in this interval not displayed. Phosphorus: No results for input(s): PHOS in the last 72 hours. Magnesium: Recent Labs 04/24/20 0445 04/25/20 0513 04/26/20 0501 MG 2.2 2.4 2.4 Albumin: Recent Labs 04/25/201911 LABALBU 4.0 IRON: No results for input(s): IRON in the last 72 hours. Iron Saturation: Invalid input(s): PERCENTFE TIBC: No results for input(s): TIBC in the last 72 hours. FERRITIN: Recent Labs 04/25/201911 FERRITIN 906* Radiology: Chest x-ray Ill-defined lateral left lung and bibasilar airspace disease suspicious for multifocal pneumonia, likely an atypical or viral pneumonia. Assessment: 1. Acute kidney injury on CKD stage III baseline serum creatinine is 1.8 mg/dL likely secondary to prerenal azotemia 2. Hyponatremia, hypoosmolar hyponatremia most likely secondary to use of hydrochlorothiazide 3. COVID-19 pneumonia 4. Type 2 diabetes 5. Essential hypertension Plan: 1. continue IV fluids normal saline at 50 cc/hr. 2. Patient is receiving remdesivir-No contraindication from renal standpoint as GFR is less than 30 3. hydrochlorothiazide on hold due to hyponatremia 4. 1500 mls oral Fluid restriction Thank you for the consultation. * Eli Webster RN - 04/26/2020 5:50 PM EST Patient Sharon updated on patient status and move to intermediate care. Questions answered. * Ashlee Spear RN - 04/26/2020 5:37 PM EST Regional Manager left voicemail for Sharon to call for update. * Eli Webster RN - 04/26/2020 4:52 PM EST Patient transferred from 2020 overflow to 2006 as intermediate status. Patient sats 87% on 6L NC. Orders received to transfer to intermediate status and may use high flow/bipap PRN. Keep sats > 88%. Dr Bermudez at bedside to assess. * Wei Bermudez MD - 04/26/2020 4:29 PM EST Pulmonary Progress Note [facility] Patient - Jourdan Arevalo, Age - 74 y.o. - 1945 Room Number - [id number] N - [id number] Located Within [facility] # - [id number] Date of Admission - 04/23/2020 9:54 PM Consulting Service/Physician Consulting - Kip Gil MD Primary Care Physician - Dulce Maria Del Castillo MD Follow-up: Acute respiratory failure SUBJECTIVE FiO2 been increased to 6 L, patient is transferring to intermediate ICU, noted some short of breathand dry cough, no wheezing No chest pain, fever or chills No nausea vomiting or diarrhea OBJECTIVE VITALS height is 5' 8 (1.727 m) and weight is 194 lb (88 kg). His oral temperature is 98.2 F (36.8 C). His blood pressure is 132/69 and his pulse is 71. His respiration is 18 and oxygen saturation is 88% (abnormal). Body mass index is 29.5 kg/m . Temperature Range: Temp: 98.2 F (36.8 C) Temp Av.7 F (37.6 C) Min: 98.2 F (36.8 C) Max: 101.1 F (38.4 C) BP Range: Systolic (24hrs), Av , Min:132 , Max:160 Diastolic (24hrs), Av, Min:54, Max:90 Pulse Range: Pulse Av.4 Min: 71 Max: 94 Respiration Range: Resp Av.3 Min: 16 Max: 18 Current Pulse Ox:: SpO2: (!) 88 % 24HR Pulse Ox Range: SpO2 Av.1 % Min: 86 % Max: 93 % Oxygen Amount and Delivery: O2 Flow Rate (L/min): 5 L/min Wt Readings from Last 3 Encounters: 04/26/20 194 lb (88 kg) I/O (24 Hours) Intake/Output Summary (Last 24 hours) at 04/26/2020 1629 Last data filed at 04/26/2020 0845 Gross per 24 hour Intake 240 ml Output 500 ml Net -260 ml EXAM General Appearance Awake, alert, in no acute distress HEENT - normocephalic, atraumatic. Neck -no JVD, trachea midline Lungs -coarse, decreased sounds, no wheezing or distress Cardiovascular - Heart sounds are normal. Regular rate and rhythm Abdomen - Soft, nontender, nondistended, no guarding Neurologic -appropriate, following commands Skin - No bruising or bleeding Extremities - No clubbing, cyanosis, edema MEDS insulin glargine 15 Units Subcutaneous Nightly atenolol 50 mg Oral Daily cefTRIAXone (ROCEPHIN) IV 1 g Intravenous Q24H remdesivir IVPB 100 mg Intravenous Q24H sodium chloride flush 10 mL Intravenous 2 times per day heparin (porcine) 5,000 Units Subcutaneous 3 times per day dexamethasone 6 mg Oral Daily aspirin 81 mg Oral Daily insulin lispro 0-12 Units Subcutaneous TID WC insulin lispro 0-6 Units Subcutaneous Nightly albuterol sulfate HFA 2 puff Inhalation 4x daily And ipratropium 2 puff Inhalation 4x daily montelukast 10 mg Oral Daily tamsulosin 0.4 mg Oral Daily atorvastatin 10 mg Oral Daily amLODIPine 10 mg Oral Daily sodium chloride dextrose sodium chloride 50 mL/hr at 04/25/20 2245 zolpidem, sodium chloride, sodium chloride, sodium chloride flush, promethazine OR ondansetron,magnesium hydroxide, acetaminophen OR acetaminophen, dextromethorphan, benzonatate, magnesium sulfate, potassium chloride OR potassium alternative oral replacement OR potassium chloride, glucose, dextrose, glucagon (rDNA), dextrose, albuterol sulfate HFA LABS CBC Recent Labs 04/26/20 0501 WBC 13.6* HGB 13.8 HCT 41.4 MCV 84.9 PLT 230 BMP: Lab Results Component Value Date NA 131 04/26/2020 K 4.5 04/26/2020 CL 100 04/26/2020 CO2 21 04/26/2020 BUN 43 04/26/2020 LABALBU 4.0 04/25/2020 CREATININE 1.93 04/26/2020 CALCIUM 8.4 04/26/2020 GFRAA 41 04/26/2020 LABGLOM 34 04/26/2020 ABGs:No results found for: PHART, PO2ART, [id number] No results found for: IFIO2, MODE, SETTIDVOL, SETPEEP Ionized Calcium: No results found for: IONCA Magnesium: Lab Results Component Value Date MG 2.4 04/26/2020 Phosphorus: No results found for: PHOS LIVER PROFILE Recent Labs 04/25/20 1912 AST 29 ALT 31 BILIDIR 0.09 BILITOT 0.24* ALKPHOS 71 INR No results for input(s): INR in the last 72 hours. PTT No results for input(s): APTT in the last 72 hours. BNP No results for input(s): BNP in the last 72 hours. RADIOLOGY (See actual reports for details) ASSESSMENT/PLAN Principal Problem: Pneumonia due to COVID-19 virus Active Problems: NAOMIE (acute kidney injury) (HCC) COPD (chronic obstructive pulmonary disease) (HCC) DM (diabetes mellitus) (HCC) Acute respiratory failure with hypoxia COPD with lower respiratory infection COVID-19 pneumonia Elevated inflammatory markers: Including CRP, LDH, ferritin, but unremarkable D-dimer O2 as needed to keep sat around 88 to 90%, will see if he is going to need high flow cannula plus minus BiPAP Bronchodilators Remdesivir, dexamethasone, plasma , antibiotic as per ID Follow-up chest x-ray in a.m. On heparin subcu Discussed with staff * Giovanni Segla MD - 04/26/2020 4:16 PM EST IN-PATIENT SERVICE [facility] Internal Medicine Progress Note 04/26/2020 4:16 PM Name: Jourdan Arevalo Acct: [id number] Room: [address] Day: 3 Admit Date: 04/23/2020 9:54 PM PCP: Dulce Maria Del Castillo MD Code Status: Full Code Subjective: C/C: Chief Complaint Patient presents with Positive For Covid-19 Interval History Status: Improving HPI: This patient is a 74 y.o. Non-/non malewho presents with fever and shortness of breath Positive COVID-19 test on 04/20/2020 Has been feeling progressively short of breath since, started to have fevers Denies chest pain abdominal pain nausea vomiting or diarrhea. Has been taking his inhalers but not helping. History of COPD hypertension hyperlipidemia type 2 diabetes. Review of Systems: Positive for shortness of breath, no cough Denies chest pain or palpitations Denies abdominal pain, diarrhea vomiting Denies any new numbness tremors or weakness. Medications: Allergies: No Known Allergies Current Meds: Scheduled Meds: insulin glargine 15 Units Subcutaneous Nightly atenolol 50 mg Oral Daily cefTRIAXone (ROCEPHIN) IV 1 g Intravenous Q24H remdesivir IVPB 100 mg Intravenous Q24H sodium chloride flush 10 mL Intravenous 2 times per day heparin (porcine) 5,000 Units Subcutaneous 3 times per day dexamethasone 6 mg Oral Daily aspirin 81 mg Oral Daily insulin lispro 0-12 Units Subcutaneous TID WC insulin lispro 0-6 Units Subcutaneous Nightly albuterol sulfate HFA 2 puff Inhalation 4x daily And ipratropium 2 puff Inhalation 4x daily montelukast 10 mg Oral Daily tamsulosin 0.4 mg Oral Daily atorvastatin 10 mg Oral Daily amLODIPine 10 mg Oral Daily Continuous Infusions: sodium chloride dextrose sodium chloride 50 mL/hr at 04/25/20 2245 PRN Meds: zolpidem, sodium chloride, sodium chloride, sodium chloride flush, promethazine OR ondansetron, magnesium hydroxide, acetaminophen OR acetaminophen, dextromethorphan, benzonatate, magnesium sulfate, potassium chloride OR potassium alternative oral replacement OR potassium c hloride, glucose, dextrose, glucagon (rDNA), dextrose, albuterol sulfate HFA Data: Past Medical History: has a past medical history of Arthritis, Chronic kidney disease, COPD (chronic obstructive pulmonary disease) (HCC), Diabetes mellitus (HCC), Hyperlipidemia, and Hypertension. Social History: reports that he has never smoked. He has never used smokeless tobacco. He reports that he does not drink alcohol or use drugs. Family History: History reviewed. No pertinent family history. Vitals: BP 132/69 Pulse 71 Temp 98.2 F (36.8 C) (Oral) Resp 18 Ht 5' 8 (1.727 m) Wt 194 lb (88 kg) SpO2 (!) 88% BMI 29.50 kg/m Temp (24hrs), Av.7 F (37.6 C), Min:98.2 F (36.8 C), Max:101.1 F (38.4 C) Recent Labs 04/25/20205204/26/20 0852 04/26/20 1115 04/26/20 1607 POCGLU 201* 150* 149* 224* I/O (24Hr): Intake/Output Summary (Last 24 hours) at 04/26/2020 1616 Last data filed at 04/26/2020 0845 Gross per 24 hour Intake 240 ml Output 500 ml Net -260 ml Labs: Lab Results Component Value Date WBC 13.6 (H) 04/26/2020 HGB 13.8 04/26/2020 HCT 41.4 04/26/2020 MCV 84.9 04/26/2020 PLT 230 04/26/2020 Lab Results Component Value Date NA 131 04/26/2020 K 4.5 04/26/2020 CL 100 04/26/2020 CO2 21 04/26/2020 BUN 43 04/26/2020 CREATININE 1.93 04/26/2020 GLUCOSE 147 04/26/2020 CALCIUM 8.4 04/26/2020 Lab Results Component Value Date/Time SPECIAL RAC 04/15/2012 12:36 AM SPECIAL NOT REPORTED 04/15/2012 12:36 AM SPECIAL NOT REPORTED 04/15/2012 12:36 AM SPECIAL NOT REPORTED 04/15/2012 12:36 AM Lab Results Component Value Date/Time CULTURE NO GROWTH 5 DAYS 04/15/2012 12:36 AM CULTURE 04/15/2012 12:36 AM Performed at [address] [place] [address] CULTURE 04/15/2012 12:36 AM CULTURE NO GROUP A BETA HEMOLYTIC STREPTOCOCCUS ISOLATED 04/15/2012 12:36 AM CULTURE 04/15/2012 12:36 AM Performed at [address] [place] [address] CULTURE 04/15/2012 12:36 AM Radiology: Recent data reviewed Physical Examination: Remainder of examination deferred due to excessive risk conferred by physical examination during a global pandemic due to coronavirus 19, in a setting where local and national supplies of personal protective equipment are depleted. Assessment: Primary Problem Pneumonia due to COVID-19 virus Active Hospital Problems Diagnosis Date Noted NAOMIE (acute kidney injury) ([facility]) [N17.9] 04/24/2020 COPD (chronic obstructive pulmonary disease) ([facility]) [J44.9] 04/24/2020 DM (diabetes mellitus) ([facility]) [E11.9] 04/24/2020 Pneumonia due to COVID-19 virus [U07.1, J12.82] 04/23/2020 DVT prophylaxis: Heparin Plan: 74-year-old male admitted with fever and shortness of breath 1. Pneumonia due to COVID-19 virus pulmonology, ID consulted started on Decadron, Rocephin and azithromycin, will add D-dimer 2. Acute hypoxic respiratory failure as evidenced by subjective shortness of breath and desaturation to 88% on room air 3. COPD continue home inhalers 4. Hyponatremia 130 at presentation, will check urine studies, nephrology consulted 5. NAOMIE on CKD stage IV-creatinine 2.49 at presentation, baseline 1.8 6. Type 2 diabetes with hyperglycemia, HbA1c 10.5 on 12/13/2019, 7.2 this admission, home Metformin and glipizide on hold, will initiate Lantus and sliding scale, blood sugars running high especially with steroids. 7. Hypertension continue home meds, currently controlled 1/3 D-dimer negative Saturating okay on room air 93% Sodium improved at 128, NAOMIE improving, creatinine 2.15 today. Patient on normal saline@50 cc/hr, nephrology following Blood sugars running high since patient on steroids, will increase Lantus Hydrochlorothiazide stopped due to hyponatremia, blood pressure running high will add atenolol. Apr 26 req higher oxygen 5 l worseing resp failure pulm input Recent Labs 04/23/20 2235 04/23/20 2235 04/24/20 1411 04/25/20 1912 04/26/20 0501 CRP -- < > -- 20.4* 47.8* LDH -- < > -- 307* -- LYMPHOPCT 8* -- -- -- -- DDIMER -- -- 0.53 -- -- PROCAL -- < > -- 0.16* -- FERRITIN -- < > -- 906* -- < > = values in this interval not displayed. 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 Treatment Diagnosis: decreased tolerance to activity Specific instructions for Next Treatment: HEP and step ups Prognosis: Good Decision Making: Low Complexity REQUIRES PT FOLLOW UP: Yes Activity Tolerance Activity Tolerance: Patient limited by endurance Patient Diagnosis(es): The primary encounter diagnosis was NAOMIE (acute kidney injury) (HCC). Diagnoses of Pneumonia due to COVID-19 virus and Elevated troponin were also pertinent to this visit. has a past medical history of Arthritis, Chronic kidney disease, COPD (chronic obstructive pulmonary disease) (HCC), Diabetes mellitus (HCC), Hyperlipidemia, and Hypertension. has no past surgical history on file. Restrictions Restrictions/Precautions Restrictions/Precautions: (COVID-19 POSITIVE) Subjective General Additional Pertinent Hx: This patient is a 74 y.o. Non-/non malewho presents with fever and shortness of breath, positive COVID -19 on 04/20/20 Nephrology consulted due to NAOMIE Subjective Subjective: Pt polietly declines functional mobility this date due to increase shortness of breath with exertion. Pt is agreeable to HEP, written handout given. General Comment Comments: RN Marie fletcher's pt for PT. Per RN pt's SPO2 has been running in high 80's. Pt's SPO2 upon arrival is 88% on O2. Pain Screening Patient Currently in Pain: No Pain Assessment Response to Pain Intervention: Asleep with RR greater than 10 Vital Signs BP Location: Left upper arm Level of Consciousness: Alert (0) Patient Currently in Pain: No Oxygen Therapy SpO2: (!) 88 % O2 Device: Nasal cannula O2 Flow Rate (L/min): 5 L/min Patient Observation Observations: BS 400 Orientation Orientation Overall Orientation Status: Within Normal Limits Objective Bed mobility Scooting: Supervision Comment: Pt in semi folwers position upon arrival. Pt reports getting to restroom however limited by shortness of breath. Ambulation Ambulation?: Yes Balance Sitting - Static: Good Comments: sitting in bed. Other exercises Other exercises?: Yes Other exercises 1: education provided on HEP, continued functional mobility, and breathing technique. (demonstrations with HEP, good understanding. Davie/green TB) Other exercises 2: Encouraged functional mobility this date however pt continues to refuse. Goals Short term goals Time Frame for Short term goals: 2 visits Short term goal 1: Pt able to ambualte 100 to 150 ft in the room with least amount of suplemental o2, maintaining sao2 > 90%, safely Short term goal 2: Pt able to demonstrate good tech for HEP to cntinue at home Short term goal 3: Pt able to perform 6 step ups x 10 with 1 UE support, SBA Patient Goals Patient goals : Able to do steps Plan Plan Times per week: 2 to 3 x/week Specific instructions for Next Treatment: HEP and step ups Safety Devices Type of devices: Call light within reach, Left in bed Therapy Time Individual Concurrent Group Co-treatment Time In 1508 Time Out 1536 Minutes 28 Eli Verdugo PTA * Chelsea Hawk OT - 04/26/2020 3:11 PM EST [facility] OCCUPATIONAL THERAPY MISSED TREATMENT NOTE INPATIENT Date: 04/26/20 Patient Name: Jourdan Arevalo Room: S2021/[id number] : 1945 (74 y.o.) Gender: male REASON FOR MISSED TREATMENT: Patient refusal - Other - Attempted OT Eval at 1417, patient sleeping soundly, upon awakening patient was slightly disoriented, answers questions appropriate but reports very fatigued and requesting to rest at this time. Declines encouragement for out of bed activity/OT Evaluation. Will check back for OT Eval as able. Chelsea Hawk OT * Mer Aguilar RN - 04/26/2020 10:57 AM EST Regional Manager called lab to inquire about the status of Convalescent Plasma since this patient had refusedit last night but agreed this morning and did sign the consent form. Curry in Blood bank states thatthe [place] informed him that plasma is taking 5-7 days due to heavy demand at this time. He willnotify us when the plasma becomes available. * Ashlee Spear RN - 04/26/2020 9:42 AM EST Regional Manager talked to Sharon regarding plan of care. She was updated on reason for no nebulizer. Sheunderstood and stated if possible to change inhalers or do triology. Regional Manager will ask dr on rounds. All questions and concerns answered. * Ashlee Spear RN - 04/26/2020 9:20 AM EST Regional Manager talked to Dr. Bermudez regarding increasing patient oxygen via NC. Patient was on 2L NC and increase to 4L NC. Dr. Bermudez aware patient has not received plasma due to questions for drs. No neworders obtained at this time. * Yumiko Rios RN - 04/26/2020 5:53 AM EST RN spoke to husbands Sharon regarding care. Patient is still nervous about getting the convulsant plasma. RN spoke to about it and gave pt. Some education papers regarding the plasma and answered patient and questions. * Yumiko Rios RN - 04/26/2020 12:21 AM EST Pt. Spiked a fever of 101.1 tylenol given patient put back on 2L NC. Patient very anxious and walking around room. Patient seemed SOB and O2 was at 87 * Ramya Navarro MD - 04/25/2020 10:37 PM EST Pulmonary Progress Note [facility] Patient - Jourdan Arevalo, Age - 74 y.o. - 1945 Room Number - [id number] [facility] - [id number] [facility] - [id number] Date of Admission - 04/23/2020 9:54 PM Consulting Service/Physician Consulting - Kip Gil MD Primary Care Physician - Dulce Maria Del Castillo MD SUBJECTIVE Patient seen at bedside. He appears to be in decent spirits. Currently is at 2 L nasal cannula with O2 saturations 91-95% fever to 99 5 documented OBJECTIVE VITALS height is 5' 8 (1.727 m) and weight is 193 lb 5.5 oz (87.7 kg). His oral temperature is 99.5 F (37.5 C). His blood pressure is 150/90 (abnormal) and his pulse is 82. His respiration is 16 and oxygensaturation is 91%. Body mass index is 29.4 kg/m . Temperature Range: Temp: 99.5 F (37.5 C) Temp Av F (37.2 C) Min: 97.5 F (36.4 C) Max: 101 F (38.3 C) BP Range: Systolic (24hrs), Av , Min:147 , Max:159 Diastolic (24hrs), Av, Min:77, Max:90 Pulse Range: Pulse Av.9 Min: 74 Max: 98 Respiration Range: Resp Av Min: 16 Max: 16 Current Pulse Ox:: SpO2: 91 % 24HR Pulse Ox Range: SpO2 Av.1 % Min: 91 % Max: 95 % Oxygen Amount and Delivery: O2 Flow Rate (L/min): 2 L/min Wt Readings from Last 3 Encounters: 04/24/20 193 lb 5.5 oz (87.7 kg) I/O (24 Hours) Intake/Output Summary (Last 24 hours) at 04/25/2020 2237 Last data filed at 04/25/2020 2104 Gross per 24 hour Intake 1384.17 ml Output 1375 ml Net 9.17 ml EXAM General Appearance Awake, alert, oriented, in no acute distress HEENT - normocephalic, atraumatic. Neck - Supple, trachea midline Lungs - clear posteriorly no crackles rales or wheezes Heart Exam:PMI normal. Abdomen Exam: Abdomen soft, non-tender. BS normal. No masses, No organomegaly Extremity Exam: no signs of cyanosis MEDS insulin glargine 15 Units Subcutaneous Nightly atenolol 50 mg Oral Daily [START ON 04/26/2020] cefTRIAXone (ROCEPHIN) IV 1 g Intravenous Q24H remdesivir IVPB 200 mg Intravenous Once Followed by [START ON 04/26/2020] remdesivir IVPB 100 mg Intravenous Q24H sodium chloride flush 10 mL Intravenous 2 times per day heparin (porcine) 5,000 Units Subcutaneous 3 times per day dexamethasone 6 mg Oral Daily aspirin 81 mg Oral Daily insulin lispro 0-12 Units Subcutaneous TID WC insulin lispro 0-6 Units Subcutaneous Nightly albuterol sulfate HFA 2 puff Inhalation 4x daily And ipratropium 2 puff Inhalation 4x daily montelukast 10 mg Oral Daily tamsulosin 0.4 mg Oral Daily atorvastatin 10 mg Oral Daily amLODIPine 10 mg Oral Daily sodium chloride dextrose sodium chloride 50 mL/hr at 04/25/20 0604 zolpidem, sodium chloride, sodium chloride, sodium chloride flush, promethazine OR ondansetron,magnesium hydroxide, acetaminophen OR acetaminophen, dextromethorphan, benzonatate, magnesium sulfate, potassium chloride OR potassium alternative oral replacement OR potassium chloride, glucose, dextrose, glucagon (rDNA), dextrose, albuterol sulfate HFA LABS CBC Recent Labs 04/25/20 0513 WBC 14.1* HGB 14.3 HCT 42.2 MCV 84.4 PLT 240 BMP: Lab Results Component Value Date NA 129 04/25/2020 K 4.5 04/25/2020 CL 97 04/25/2020 CO2 21 04/25/2020 BUN 43 04/25/2020 LABALBU 4.0 04/25/2020 CREATININE 2.15 04/25/2020 CALCIUM 8.4 04/25/2020 GFRAA 36 04/25/2020 LABGLOM 30 04/25/2020 ABGs:No results found for: PHART, PO2ART, [id number] No results found for: IFIO2, MODE, SETTIDVOL, SETPEEP Ionized Calcium: No results found for: IONCA Magnesium: Lab Results Component Value Date MG 2.4 04/25/2020 Phosphorus: No results found for: PHOS LIVER PROFILE Recent Labs 04/25/20 1912 AST 29 ALT 31 BILIDIR 0.09 BILITOT 0.24* ALKPHOS 71 INR No results for input(s): INR in the last 72 hours. PTT No results found for: APTT RADIOLOGY (See actual reports for details) ASSESSMENT/PLAN Patient Active Problem List Diagnosis Pneumonia due to COVID-19 virus NAOMIE (acute kidney injury) (HCC) HTN (hypertension) COPD (chronic obstructive pulmonary disease) (HCC) DM (diabetes mellitus) (HCC) Hyperlipidemia BPH (benign prostatic hyperplasia) IMPRESSION: 1. The patient has a diagnosis of acute respiratory failure with Hypoxemia. #2. Viral pneumonia from COVID 19 2. Acute kidney injury.--- On albuterol and Atrovent HFA On DVT prophylaxis with subcutaneous heparin On Decadron, day #2 Remdesivir started today * Yumiko Rios RN - 04/25/2020 9:33 PM EST RN spoke with pt. regarding care. states that patient is nervous and unsure if he wants the convulsant plasma or not and he has not been sleeping well since he has been here. Sleep aid has been ordered for him. This consumer loan underwriter informed patient and that they will find some resources for the patient to look over in regards to the plasma. * Memo Brown MD - 04/25/2020 5:04 PM EST NEPHROLOGY PROGRESS NOTE Patient : Jourdan Arevalo; 74 y.o. Location: [id number] Attending: Kip Gil MD Admit Date: 04/23/2020 Hospital Day: 2 Reason for Consult: Acute kidney injury Chief Complaint: Cough shortness of breath chills fatigue History Obtained From: Patient, over the phone History of Present Illness: This is a 74 y.o. male with past medical history of type 2 diabetes, essential hypertension, CKD stage III with baseline creatinine of about 1.8 mg/dL, he follows up with bar tacker in [facility] outpatient labs available, his last labs before this hospitalization was in 2011 and his creatinine at that time was 1.8 mg/dL. She admitted with complaints of cough fatigue shortness of breath that started a weeks ago, tested positive for Covid, and admitted for COVID-19 pneumonia Labs showed serum creatinine of 2.3 mg/dL on admission and therefore nephrology consultation has been requested Patient denies any chest pain nausea vomiting or diarrhea. Serum sodium is 126 She is on hydrochlorothiazide at home subjective/interval history patient not seen [id number] due to COVID-19 isolation. Talked to him over the phone patient is feeling better his off oxygen serum creatinine 2.1 mg/dL, serum sodium has improved to 130 Past Medical History: Diagnosis Date Arthritis Chronic kidney disease Stage III kidney disease COPD (chronic obstructive pulmonary disease) (HCC) Diabetes mellitus (HCC) Hyperlipidemia Hypertension Past Surgical History: History reviewed. No pertinent surgical history. Current Medications: insulin glargine (LANTUS) injection vial 15 Units, Nightly atenolol (TENORMIN) tablet 50 mg, Daily zolpidem (AMBIEN) tablet 5 mg, Nightly PRN sodium chloride flush 0.9 % injection 10 mL, 2 times per day sodium chloride flush 0.9 % injection 10 mL, PRN promethazine (PHENERGAN) tablet 12.5 mg, Q6H PRN Or ondansetron (ZOFRAN) injection 4 mg, Q6H PRN magnesium hydroxide (MILK OF MAGNESIA) 400 MG/5ML suspension 30 mL, Daily PRN acetaminophen (TYLENOL) tablet 650 mg, Q6H PRN Or acetaminophen (TYLENOL) suppository 650 mg, Q6H PRN azithromycin (ZITHROMAX) 500 mg in D5W 250ml addavial, Q24H And cefTRIAXone (ROCEPHIN) 1 g IVPB in 50 mL D5W minibag, Q24H heparin (porcine) injection 5,000 Units, 3 times per day dexamethasone (DECADRON) tablet 6 mg, Daily dextromethorphan (DELSYM) 30 MG/5ML extended release liquid 60 mg, Q12H PRN benzonatate (TESSALON) capsule 200 mg, TID PRN magnesium sulfate 1 g in dextrose 5% 100 mL IVPB, PRN potassium chloride (KLOR-CON M) extended release tablet 40 mEq, PRN Or potassium bicarb-citric acid (EFFER-K) effervescent tablet 40 mEq, PRN Or potassium chloride 10 mEq/100 mL IVPB (Peripheral Line), PRN aspirin chewable tablet 81 mg, Daily glucose (GLUTOSE) 40 % oral gel 15 g, PRN dextrose 50 % IV solution, PRN glucagon (rDNA) injection 1 mg, PRN dextrose 5 % solution, PRN insulin lispro (HUMALOG) injection vial 0-12 Units, TID WC insulin lispro (HUMALOG) injection vial 0-6 Units, Nightly albuterol sulfate HFA 108 (90 Base) MCG/ACT inhaler 2 puff, 4x daily And ipratropium (ATROVENT HFA) 17 MCG/ACT inhaler 2 puff, 4x daily albuterol sulfate HFA 108 (90 Base) MCG/ACT inhaler 2 puff, Q2H PRN montelukast (SINGULAIR) tablet 10 mg, Daily tamsulosin (FLOMAX) capsule 0.4 mg, Daily atorvastatin (LIPITOR) tablet 10 mg, Daily amLODIPine (NORVASC) tablet 10 mg, Daily 0.9 % sodium chloride infusion, Continuous Allergies: Patient has no known allergies. Social History: Social History Socioeconomic History Marital status: Spouse name: Not on file Number of children: Not on file Years of education: Not on file Highest education level: Not on file Occupational History Not on file Social Needs Financial resource strain: Not on file Food insecurity Worry: Not on file Inability: Not on file Transportation needs Medical: Not on file Non-medical: Not on file Tobacco Use Smoking status: Never Smoker Smokeless tobacco: Never Used Substance and Sexual Activity Alcohol use: No Drug use: No Sexual activity: Not on file Lifestyle Physical activity Days per week: Not on file Minutes per session: Not on file Stress: Not on file Relationships Social connections Talks on phone: Not on file Gets together: Not on file Attends jew service: Not on file Active member of club or organization: Not on file Attends meetings of clubs or organizations: Not on file Relationship status: Not on file Intimate partner violence Fear of current or ex partner: Not on file Emotionally abused: Not on file Physically abused: Not on file Forced sexual activity: Not on file Other Topics Concern Not on file Social History Narrative Not on file Family History: History reviewed. No pertinent family history. Review of Systems: Constitutional: No fever, + chills, no night sweats, +fatigue, generalized weakness, no loss of appetite HEENT: No headache, otalgia, itchy eyes, epistaxis, nasal discharge or sore throat. Cardiac: No chest pain, +dyspnea, orthopnea or PND, palpitations Chest: No cough, hemoptysis, pleuritic chest pain, wheezing,+SOB Abdomen: No abdominal pain, nausea, vomiting, diarrhea, melena, dysphagia hematemesis,constipation,abdominal bloating, flank pain Neuro: No CVA, TIA or seizure like activity. Skin: No rashes, no itching. : No hematuria, no pyuria, no dysuria, no flank pain. Extremities: No swelling or joint pains. Objective: CURRENT TEMPERATURE: Temp: 101 F (38.3 C) MAXIMUM TEMPERATURE OVER 24HRS: Temp (24hrs), Av.5 F (36.9 C), Min:97.5 F (36.4 C), Max:101 F (38.3 C) CURRENT RESPIRATORY RATE: Resp: 16 CURRENT PULSE: Pulse: 98 CURRENT BLOOD PRESSURE: BP: (!) 159/77 24HR BLOOD PRESSURE RANGE: Systolic (24hrs), Av , Min:136 , Max:159 ; Diastolic (24hrs), Av, Min:75, Max:78 24HR INTAKE/OUTPUT: Intake/Output Summary (Last 24 hours) at 04/25/2020 1705 Last data filed at 04/25/2020 1528 Gross per 24 hour Intake 1444.17 ml Output 1075 ml Net 369.17 ml Patient Vitals for the past 96 hrs (Last 3 readings): Weight 04/24/20 0050 193 lb 5.5 oz (87.7 kg) 04/23/20 2200 180 lb (81.6 kg) Physical Exam: Remainder of the examExcessive risk deferred due to excessive risk conferred by bedside physical exam during a global SARS Cov 2/COVID 19 pandemic, in a setting where local and national supplies of personal protective equipment are depleted. Labs: CBC: Recent Labs 04/23/20 2235 04/24/20 0445 04/25/20 0513 WBC 10.2 8.7 14.1* RBC 4.75 4.78 5.00 HGB 13.5 13.8 14.3 HCT 40.1* 40.4* 42.2 MCV 84.5 84.6 84.4 MCH 28.5 28.9 28.5 MCHC 33.7 34.2 33.8 RDW 13.1 13.4 13.2 PLT 231 230 240 MPV 8.4 9.0 8.8 BMP: Recent Labs 04/24/20 0445 04/24/20 1411 04/24/20 1411 04/25/20 0513 04/25/20 0711 04/25/20 1359 NA 126* 127* < > 130* 128* 130* K 5.0 4.8 -- 4.5 -- -- CL 95* 94* -- 97* -- -- CO2 21 18* -- 21 -- -- BUN 35* 42* -- 43* -- -- CREATININE 2.32* 2.23* -- 2.15* -- -- GLUCOSE 310* 290* -- 255* -- -- CALCIUM 8.3* 8.5* -- 8.4* -- -- < > = values in this interval not displayed. Phosphorus: No results for input(s): PHOS in the last 72 hours. Magnesium: Recent Labs 04/23/20 2235 04/24/20 0445 04/25/20 0513 MG 2.3 2.2 2.4 Albumin: No results for input(s): LABALBU in the last 72 hours. IRON: No results for input(s): IRON in the last 72 hours. Iron Saturation: Invalid input(s): PERCENTFE TIBC: No results for input(s): TIBC in the last 72 hours. FERRITIN: Recent Labs 04/24/20 0445 FERRITIN 582* Radiology: Chest x-ray Ill-defined lateral left lung and bibasilar airspace disease suspicious for multifocal pneumonia, likely an atypical or viral pneumonia. Assessment: 1. NAOMIE on CKD stage III baseline serum creatinine is 1.8 mg/dL likely secondary to prerenal azotemia 2. Hyponatremia, hypoosmolar hyponatremia most likely secondary to use of hydrochlorothiazide 3. COVID-19 pneumonia 4. Type 2 diabetes 5. Essential hypertension Plan: 1. continue IV fluids normal saline 2. Stop hydrochlorothiazide 3. Fluid restriction Thank you for the consultation. * Ruby Hyman RN - 04/25/2020 3:29 PM EST Patient running fever of 101. Tylenol given for comfort. * Kip Gil MD - 04/25/2020 2:03 PM EST IN-PATIENT SERVICE [facility] Internal Medicine Progress Note 04/25/2020 2:03 PM Name: Jourdan Arevalo Acct: [id number] Room: [address] Day: 2 Admit Date: 04/23/2020 9:54 PM PCP: Dulce Maria Del Castillo MD Code Status: Full Code Subjective: C/C: Chief Complaint Patient presents with Positive For Covid-19 Interval History Status: Improving HPI: This patient is a 74 y.o. Non-/non malewho presents with fever and shortness of breath Positive COVID-19 test on 04/20/2020 Has been feeling progressively short of breath since, started to have fevers Denies chest pain abdominal pain nausea vomiting or diarrhea. Has been taking his inhalers but not helping. History of COPD hypertension hyperlipidemia type 2 diabetes. Review of Systems: Positive for shortness of breath, no cough Denies chest pain or palpitations Denies abdominal pain, diarrhea vomiting Denies any new numbness tremors or weakness. Medications: Allergies: No Known Allergies Current Meds: Scheduled Meds: sodium chloride flush 10 mL Intravenous 2 times per day azithromycin 500 mg Intravenous Q24H And cefTRIAXone (ROCEPHIN) IV 1 g Intravenous Q24H heparin (porcine) 5,000 Units Subcutaneous 3 times per day dexamethasone 6 mg Oral Daily aspirin 81 mg Oral Daily insulin lispro 0-12 Units Subcutaneous TID WC insulin lispro 0-6 Units Subcutaneous Nightly albuterol sulfate HFA 2 puff Inhalation 4x daily And ipratropium 2 puff Inhalation 4x daily montelukast 10 mg Oral Daily tamsulosin 0.4 mg Oral Daily atorvastatin 10 mg Oral Daily amLODIPine 10 mg Oral Daily insulin glargine 10 Units Subcutaneous Nightly Continuous Infusions: dextrose sodium chloride 50 mL/hr at 04/25/20 0604 PRN Meds: sodium chloride flush, promethazine OR ondansetron, magnesium hydroxide, acetaminophen OR acetaminophen, dextromethorphan, benzonatate, magnesium sulfate, potassium chloride OR potassium alternative oral replacement OR potassium chloride, glucose, dextrose, glucagon (rDNA), dextrose, albuterol sulfate HFA Data: Past Medical History: has a past medical history of Arthritis, Chronic kidney disease, COPD (chronic obstructive pulmonary disease) (HCC), Diabetes mellitus (HCC), Hyperlipidemia, and Hypertension. Social History: reports that he has never smoked. He has never used smokeless tobacco. He reports that he does not drink alcohol or use drugs. Family History: History reviewed. No pertinent family history. Vitals: BP (!) 159/77 Pulse 87 Temp 97.8 F (36.6 C) (Oral) Resp 16 Ht 5' 8 (1.727 m) Wt 193 lb 5.5 oz (87.7 kg) SpO2 93% BMI 29.40 kg/m Temp (24hrs), Av.7 F (36.5 C), Min:97.5 F (36.4 C), Max:98 F (36.7 C) Recent Labs 04/24/20 1654 04/24/20201404/25/20 0750 04/25/20 1146 POCGLU 324* 366* 209* 285* I/O (24Hr): Intake/Output Summary (Last 24 hours) at 04/25/2020 1403 Last data filed at 04/25/2020 0528 Gross per 24 hour Intake 1444.17 ml Output 1100 ml Net 344.17 ml Labs: Lab Results Component Value Date WBC 14.1 (H) 04/25/2020 HGB 14.3 04/25/2020 HCT 42.2 04/25/2020 MCV 84.4 04/25/2020 PLT 240 04/25/2020 Lab Results Component Value Date NA 128 04/25/2020 K 4.5 04/25/2020 CL 97 04/25/2020 CO2 21 04/25/2020 BUN 43 04/25/2020 CREATININE 2.15 04/25/2020 GLUCOSE 255 04/25/2020 CALCIUM 8.4 04/25/2020 Lab Results Component Value Date/Time SPECIAL RAC 04/15/2012 12:36 AM SPECIAL NOT REPORTED 04/15/2012 12:36 AM SPECIAL NOT REPORTED 04/15/2012 12:36 AM SPECIAL NOT REPORTED 04/15/2012 12:36 AM Lab Results Component Value Date/Time CULTURE NO GROWTH 5 DAYS 04/15/2012 12:36 AM CULTURE 04/15/2012 12:36 AM Performed at [address] [place] [address] CULTURE 04/15/2012 12:36 AM CULTURE NO GROUP A BETA HEMOLYTIC STREPTOCOCCUS ISOLATED 04/15/2012 12:36 AM CULTURE 04/15/2012 12:36 AM Performed at [facility] of [address] [place] [address] CULTURE 04/15/2012 12:36 AM Radiology: Recent data reviewed Physical Examination: Remainder of examination deferred due to excessive risk conferred by physical examination during a global pandemic due to coronavirus 19, in a setting where local and national supplies of personal protective equipment are depleted. Assessment: Primary Problem Pneumonia due to COVID-19 virus Active Hospital Problems Diagnosis Date Noted NAOMIE (acute kidney injury) ([facility]) [N17.9] 04/24/2020 COPD (chronic obstructive pulmonary disease) ([facility]) [J44.9] 04/24/2020 DM (diabetes mellitus) ([facility]) [E11.9] 04/24/2020 Pneumonia due to COVID-19 virus [U07.1, J12.82] 04/23/2020 DVT prophylaxis: Heparin Plan: 74-year-old male admitted with fever and shortness of breath 1. Pneumonia due to COVID-19 virus pulmonology, ID consulted started on Decadron, Rocephin and azithromycin, will add D-dimer 2. Acute hypoxic respiratory failure as evidenced by subjective shortness of breath and desaturation to 88% on room air 3. COPD continue home inhalers 4. Hyponatremia 130 at presentation, will check urine studies, nephrology consulted 5. NAOMIE on CKD stage IV-creatinine 2.49 at presentation, baseline 1.8 6. Type 2 diabetes with hyperglycemia, HbA1c 10.5 on 12/13/2019, 7.2 this admission, home Metformin and glipizide on hold, will initiate Lantus and sliding scale, blood sugars running high especially with steroids. 7. Hypertension continue home meds, currently controlled 1/3 D-dimer negative Saturating okay on room air 93% Sodium improved at 128, NAOMIE improving, creatinine 2.15 today. Patient on normal saline@50 cc/hr, nephrology following Blood sugars running high since patient on steroids, will increase Lantus Hydrochlorothiazide stopped due to hyponatremia, blood pressure running high will add atenolol. Potential discharge tomorrow if creatinine and sodium acceptable. Recent Labs 04/23/20 2235 04/24/20 0445 04/24/20 1411 CRP -- 28.5* -- LDH -- 220 -- LYMPHOPCT 8* -- -- DDIMER -- -- 0.53 PROCAL -- 0.21* -- FERRITIN -- 582* -- Kip Gil MD 04/25/2020 2:03 PM * Ruby Hyman RN - 04/25/2020 8:06 AM EST Attempting to wean oxygen. Patient's oxygen level 95% on 2L. Nasal cannula removed. Oxygen level maintaining at 92-93% on room air. Will continue to monitor. * Yumiko Rios RN - 04/25/2020 6:16 AM EST RN called patients Sharon and updated her on care. No questions at this time. * Aubrey Jacome PT - 04/24/2020 5:04 PM EST Physical Therapy Facility/Department: [facility] Initial Assessment NAME: Jourdan Arevalo : 1945 Date of Service: 04/24/2020 Discharge Recommendations: The patient may need non-skilled assistance after discharge. 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 Treatment Diagnosis: decreased tolerance to activity Specific instructions for Next Treatment: HEP and step ups Prognosis: Good Decision Making: Low Complexity REQUIRES PT FOLLOW UP: Yes Activity Tolerance Activity Tolerance: Patient limited by endurance Patient Diagnosis(es): The primary encounter diagnosis was NAOMIE (acute kidney injury) (HCC). Diagnoses of Pneumonia due to COVID-19 virus and Elevated troponin were also pertinent to this visit. has a past medical history of Arthritis, Chronic kidney disease, COPD (chronic obstructive pulmonary disease) (HCC), Diabetes mellitus (HCC), Hyperlipidemia, and Hypertension. has no past surgical history on file. Restrictions Restrictions/Precautions Restrictions/Precautions: (COVID-19 POSITIVE) Vision/Hearing Vision: Impaired Vision Exceptions: Wears glasses at all times Hearing: Exceptions to WFL Subjective General Patient assessed for rehabilitation services?: Yes Additional Pertinent Hx: This patient is a 74 y.o. 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 Pain Screening Patient Currently in Pain: No Oxygen Therapy O2 Device: Nasal cannula O2 Flow Rate (L/min): 2 L/min Orientation Social/Functional History Social/Functional History Lives With: Spouse Type of Home: House Home Layout: One level Home Access: Stairs to enter with rails Entrance Stairs - Number of Steps: 3 Entrance Stairs - Rails: Both Bathroom Shower/Tub: Tub/Shower unit Bathroom Toilet: Standard Bathroom Equipment: (no dme) Home Equipment: (no dme) ADL Assistance: Independent Ambulation Assistance: Independent Transfer Assistance: Independent Active Transport Engineer: Yes Mode of Transportation: Car 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 Cognition Objective AROM RLE (degrees) RLE AROM: WFL AROM LLE (degrees) LLE AROM : WFL AROM RUE (degrees) RUE AROM : WFL AROM LUE (degrees) LUE AROM : WFL Strength Other Other: Functional strength all 4 extremity Sensation Overall Sensation Status: WFL Bed mobility Rolling to Left: Supervision Rolling to Right: Supervision Supine to Sit: Supervision Sit to Supine: Supervision Scooting: Supervision Transfers Sit to Stand: Independent Stand to sit: Independent Bed to Chair: Independent Ambulation Ambulation?: Yes Ambulation 1 Surface: level tile Device: No Device Other Apparatus: O2(2 lt,IV pole) Assistance: Supervision Quality of Gait: No LOB, supervsion due to IV pole and o2 tubing Distance: 80 ft in the room Comments: sao2 98% at rest, sao2 92% after ambulation. Balance Posture: Good Sitting - Static: Good Sitting - Dynamic: Good Standing - Static: Good Standing - Dynamic: Good;- Plan Plan 2 to 3 x/week. Specific instructions for Next Treatment: HEP and step ups Safety Devices Type of devices: Call light within reach, Left in bed G-Code OutComes Score AM-PAC Score Goals Short term goals Time Frame for Short term goals: 2 visits Short term goal 1: Pt able to ambualte 100 to 150 ft in the room with least amount of suplemental o2, maintaining sao2 > 90%, safely Short term goal 2: Pt able to demonstrate good tech for HEP to cntinue at home Short term goal 3: Pt able to perform 6 step ups x 10 with 1 UE support, SBA Patient Goals Patient goals : Able to do steps Therapy Time Individual Concurrent Group Co-treatment Time In 1437 Time Out 1503 Minutes 26 Aubrey Jacome PT * Leatha Cody RD, LD - 04/24/2020 3:58 PM EST Comprehensive Nutrition Assessment Type and Reason for Visit: Initial, Positive Nutrition Screen(wt loss, poor appetite) Nutrition Recommendations/Plan: Will continue 4 carbohydrate choices per tray and add Nepro supplements to all trays for increased protein. Nutrition Assessment: Pt admitted due to Covid. H/O DM, COPD noted. Pt consumes around 50% of food provided. No wt history is available. Malnutrition Assessment: Malnutrition Status: At risk for malnutrition (Comment) Context: Acute Illness Findings of the 6 clinical characteristics of malnutrition: Energy Intake: Mild decrease in energy intake (Comment) Weight Loss: No significant weight loss Body Fat Loss: Unable to assess Muscle Mass Loss: Unable to assess Fluid Accumulation: No significant fluid accumulation Furnace Erector Strength: Not Performed Estimated Daily Nutrient Needs: Energy (kcal): 1900 kcal ([place] x 1.2); Weight Used for Energy Requirements: Current(88 kg) Protein (g): 1.5g/kg= 105 g protein; Weight Used for Protein Requirements: Ribera Nutrition Related Findings: Edema: none, Labs (04/24) Na 127 K 4.8 BUN/Cr 42/2.23 Glu 290, POC Glu 363-408 Meds: Decadron, Humalog, Lantus Wounds: None Current Nutrition Therapies: DIET CARB CONTROL; Carb Control: 4 carb choices (60 gms)/meal Anthropometric Measures: Height: 5' 8 (172.7 cm) Current Body Weight: 193 lb (87.5 kg) Admission Body Weight: 180 lb (81.6 kg) Ribera Body Weight: 154 lbs; BMI: 29.4 BMI Categories: Overweight (BMI 25.0-29.9) Nutrition Diagnosis: Inadequate oral intake related to impaired respiratory function as evidenced by intake 26-50%, intake 51-75% Nutrition Interventions: Food and/or Nutrient Delivery: Continue Current Diet, Start Oral Nutrition Supplement Nutrition Education/Counseling: No recommendation at this time Coordination of Nutrition Care: Continue to monitor while inpatient Goals: po intake more than 75% Nutrition Monitoring and Evaluation: Food/Nutrient Intake Outcomes: Food and Nutrient Intake, Supplement Intake Physical Signs/Symptoms Outcomes: Biochemical Data, GI Status, Skin, Weight, Fluid Status or Edema Discharge Planning: Too soon to determine Contact: [phone] * June Betancourt RN - 04/24/2020 6:51 AM EST RN called and updated pt's , Sharon, via telephone. All questions and concerns answered. * June Betancourt RN - 04/24/2020 3:22 AM EST RN spoke with Dr. Vazquez regarding new consult and fluids clarification. Dr. Vazquez stated to continue LR at a rate of 100/hr, d/c NS. No other orders given. RN updated Curry Dorado on fluids clarification. * June Betancourt RN - 04/24/2020 2:56 AM EST RN notified Dr. Baum of new consult at [phone] via [facility], message will be sent out at [phone] according to [facility]. * Curry Dorado APRN - CNP - 04/24/2020 12:29 AM EST Patient presents with low-grade fever and worsening shortness of breath. No chest pain, abdominal pain, nausea or vomiting. He has history of COPD. Had a positive coronavirus test on April 20. Troponin 48, repeat troponin pending. Creatinine 2.49. Chest x-ray shows left lung and bibasilar airspace disease suspicious for atypical or viral multifocal pneumonia. He was given IV fluids and startedon Decadron, Rocephin and azithromycin in the ED. He is on 2 L nasal cannula. Blood pressure stable. Patient admitted to progressive unit. Consult infectious disease, pulmonology, and nephrology. documented in this encounter Assessments Diagnosis Pneumonia due to COVID-19 virus- Primary NAOMIE (acute kidney injury) ([facility]) Acute kidney failure, unspecified Elevated troponin Other abnormal blood chemistry COPD (chronic obstructive pulmonary disease) (HCC) Chronic airway obstruction, not elsewhere classified DM (diabetes mellitus) ([facility]) Type II or unspecified type diabetes mellitus without mention of complication, not stated as uncontrolled Oral thrush Candidiasis of mouth Reason for Referral Reason No tinea, discolorat ion or erythema. Onycomycosis to 2nd thrid toe Bilaterally. small excoriation lateral right mari, no s/s infection, appeared without pain, patient concerned that lateral morph foot causing pressure points. Podiatry in [place]-- Dee-- Diagnosis 1 Type 2 diabetes polly itus with hyperglycemia (E11.65) Diagnosis 2 Onychomycosis (B35.1 ) Diagnosis 3 Foot deformity (M21. 969) Referral Organization [facility] Referring Provider First Name Darby Referring Provider Last Name Yudith Referring Provider Specialty Nurse Pract itioner Referred Organization [facility] Referred Provider TOLU PRICE Referred Address ,[place], [place],[address] Referred Provider Specialty Podiatry - S urgical Chiropody Referral Priority Routine General Notes Darby Ferrer 05/2022 09:48:53 AM >Per Kimmie at Dr Price's office, once referral is received they will call patient for appt Darby Ferrer 05/25/2022 09:51:25 AM >Referral faxed Darby Ferrer 05/26/2022 12:29:18 PM > faxed failed ,Refaxed Darby Ferrer 06/16/2022 09:00:48 AM >Per Rosey at Dr Price's office referral had been received, she will call patient today and get appt scheduled Reason REQUEST DR COFFEY-- DECLINING GFR, DIabetes and Microalbuminuria- insinopril, no sglt2i now d/t hypoglycemia Diagnosis 1 Type 2 diabetes polly itus with hyperglycemia (E11.65) Referral Organization [facility] Referring Provider First Name Darby Referring Provider Last Name Yudith Referring Provider Specialty Nurse Pract itioner Referred Organization [facility] Nephrology Referred Address [address] [place], [place],[address] Referred Provider Specialty Nephrology Referral Priority Routine Chief Complaint and Reason for Visit Chief Complaint DM Reason for Visit Type 2 diabetes polly itus with hyperglycemia Chief Complaint DM renal 3 month f/u DMN f/u-METER Reason for Visit Type 2 diabetes polly itus with hyperglycemia CKD (chronic kidney disease) stage 4, GFR 15-29 ml/min Hyperlipidemia [id number] Hyperuricemia Renal mass, right Secondary hyperparathyroidism Type 2 diabetes mellitus with diabetic chronic kidney disease BMI 27.0-27.9,adult Foot deformity Hyperlipidemia Hypertension Type 2 diabetes mellitus with diabetic chronic kidney disease Type 2 diabetes mellitus with hyperglycemia Vitamin D deficiency Chief Complaint renal 3 month f/u DMN f/u-METER 6 week download per DS Reason for Visit Type 2 diabetes polly itus with hyperglycemia CKD (chronic kidney disease) stage 4, GFR 15-29 ml/min Hyperlipidemia [id number] Hyperuricemia Renal mass, right Secondary hyperparathyroidism Type 2 diabetes mellitus with diabetic chronic kidney disease BMI 27.0-27.9,adult Foot deformity Hyperlipidemia Hypertension Type 2 diabetes mellitus with diabetic chronic kidney disease Type 2 diabetes mellitus with hyperglycemia Vitamin D deficiency Type 2 diabetes mellitus with hyperglycemia Chief Complaint 6 week download per DS DMN f/u-METER Reason for Visit Type 2 diabetes polly itus with hyperglycemia Additional Source Comments (unrecognized sect ion and content) No Status Records FoundNo Status Records FoundNo Status Records FoundNo Status Records FoundNo Status Records Found INFORMATION SOURCE (unrecogn ized section and content) DATE CREATED AUTHOR 05/13/2020 [facility] DATE CREATED AUTHOR AUTHOR'S ORGANIZ ATION 07/29/2022 [facility] DATE CREATED AUTHOR AUTHOR'S ORGANIZ ATION 01/24/2023 Collins Cidra [facility] DATE CREATED AUTHOR AUTHOR'S ORGANIZ ATION 06/08/2023 [facility] DATE CREATED AUTHOR AUTHOR'S ORGANIZ ATION 02/25/2024 [facility] Reason for Visit (unrecogniz ed section and content) Reason Comments Positive For Covid-19 Status Reason Specialty Diagnoses / Procedures Referre d By Contact Referred To Contact Diagnoses Pneumonia due to COVID-19 virus Kip Gil MD [address] [place] [address] [facility] Reason Comments Kidney Bx Reason Comments Consult Renal Mass New Patient Reason Comments Follow Up Renal mass Reason Comments Follow Up Ordered Prescriptions (unrec ognized section and content) Prescription Sig Dispensed Refills Start Date End Da te HUMALOG 100 UNIT/ML injection vial Inject 1 Units into the skin 3 times daily (before meals) 151-200-----3 units 201-250-----5 units 251-300-----8 301-350-----12 351-400-----15 1 vial 3 05/05/2020 nystatin (MYCOSTATIN) 623491 UNIT/ML suspension Take 5 mLs by mouth 4 times daily for 10 days 200 mL 0 05/05/2020 05/15/2020 dextromethorphan (DELSYM) 30 MG/5ML extended release liquid Take 10 mLs by mouth every 12 hours as needed for Cough 90 mL 2 05/05/2020 05/15/2020 benzonatate (TESSALON) 200 MG capsule Take 1 capsule by mouth 3 times daily as needed for Cough 21 capsule 2 05/05/2020 05/12/2020 albuterol-ipratropium (COMBIVENT RESPIMAT) 20-100 MCG/ACT AERS inhaler Inhale 1 puff into the lungs 4 times daily 1 Inhaler 2 05/05/2020 budesonide-formoterol (SYMBICORT) 160-4.5 MCG/ACT AERO Inhale 2 puffs into the lungs 2 times daily 1 Inhaler 3 05/05/2020 insulin lispro (HUMALOG) 100 UNIT/ML injection vial Inject 1 Units into the skin 3 times daily (before meals) 151-200-----3 units 201-250-----5 units 251-300-----8 301-350-----12 351-400-----15 1 vial 3 05/05/2020 05/05/2020 insulin glargine (LANTUS) 100 UNIT/ML injection vial Inject 20 Units into the skin nightly 1 vial 3 05/05/2020 05/05/2020 Patient Care team informatio n (unrecognized section and content) Team Status: Active Member Role Status FIDELINA RodriguesC Primary Care Provider Active Team Status: Inactive Member Role Status Mandy Zurita APRN Attending Provider Active Start: May 07, 2023 End: May 07, 2023 Team Status: Inactive Member Role Status Mandy Oro MD Primary Care [facility] er, Attending Provider Active Start: May 07, 2023 End: May 07, 2023 Team Status: Active Member Role Status Mandy Oro MD Primary Care [facility] er, Attending Provider Active Start: May 07, 2023 Team Status: Inactive Member Role Status Mandy Oro MD Primary Care Provider Active Start: June 06, 2023 End: June 06, 2023 Kitty Ledbetter RN Attending Provider Active Start: June 06, 2023 End: June 06, 2023 Darby Zurita APRN Active Star t: June 06, 2023 End: June 06, 2023 Team Status: Active Member Role Status Mandy Oro MD Primary Care [facility] er, Attending Provider Active Start: June 11, 2023 Team Status: Inactive Member Role Status Mandy Oro MD Primary Care Provider Active Start: June 25, 2023 End: June 25, 2023 Shashank Tejeda MD Attending Provider Active Start : June 25, 2023 End: June 25, 2023 Team Status: Inactive Member Role Status Dates Darby Zurita APRN Attending Provider Active Start: July 09, 2023 End: July 09, 2023 KEREN Mederos Primary Care Provider Active Start: July 09, 2023 End: July 09, 2023 Team Status: Active Member Role Status Dates Moris Oro MD Primary Care Provider Active Team Status: Inactive Member Role Status Dates KEREN Mederos Primary Care Provider Active Start: August 20, 2023 End: August 20, 2023 Edu Sung RN Attending Provider Active St art: August 20, 2023 End: August 20, 2023 Team Status: Inactive Member Role Status Dates KEREN Mederos Primary Care Provider Active Start: October 15, 2023 End: October 15, 2023 Darby Zurita APRN Attending Provider Active Start: October 15, 2023 End: October 15, 2023 Source Comments (unrecognize d section and content) In the event this informatio n is protected by the Federal Confidentiality of Alcohol and Drug Abuse Patient Records regulations: The Federal rules restrict any use of the information to criminally investigate or prosecute any alcohol or drug abuse patient.[facility] the event this information is protected by the Federal Confidentiality of Alcohol and Drug Abuse Patient Records regulations: The Federal rules restrict any use of the information to criminally investigate or prosecute any alcohol or drug abuse patient.[facility] the event this information is protected by the Federal Confidentiality of Alcohol and Drug Abuse Patient Records regulations: The Federal rules restrict any use of the information to criminally investigate or prosecute any alcohol or drug abuse patient.[facility] the event this information is protected by the Federal Confidentiality of Alcohol and Drug Abuse Patient Records regulations: The Federal rules restrict any use of the information to criminally investigate or prosecute any alcohol or drug abuse patient.[facility] the event this information is protected by the Federal Confidentiality of Alcohol and Drug Abuse Patient Records regulations: The Federal rules restrict any use of the information to criminally investigate or prosecute any alcohol or drug abuse patient.[facility] the event this information is protected by the Federal Confidentiality of Alcohol and Drug Abuse Patient Records regulations: The Federal rules restrict any use of the information to criminally investigate or prosecute any alcohol or drug abuse patient.[facility] the event this information is protected by the Federal Confidentiality of Alcohol and Drug Abuse Patient Records regulations: The Federal rules restrict any use of the information to criminally investigate or prosecute any alcohol or drug abuse patient.[facility] the event this information is protected by the Federal Confidentiality of Alcohol and Drug Abuse Patient Records regulations: The Federal rules restrict any use of the information to criminally investigate or prosecute any alcohol or drug abuse patient.[facility] the event this information is protected by the Federal Confidentiality of Alcohol and Drug Abuse Patient Records regulations: The Federal rules restrict any use of the information to criminally investigate or prosecute any alcohol or drug abuse patient.[facility] Goals (unrecognized section and content) Goals may be documented in a n alternate section FOR RECORDS PERTAINING TO PATIENTS WHO ARE OR HAVE BEEN ENROLLED IN A CHEMICAL DEPENDENCY/SUBSTANCEABUSE PROGRAM, SOME INFORMATION MAY BE OMITTED. This clinical summary was aggregated from multiple sources. Caution should be exercised in using it in the provision of clinical care. This summary normalizes information from multiple sources, and as a consequence, information in this document may materially change the coding, format and clinical context of patient data. In addition, data may be omitted in some cases. CLINICAL DECISIONS SHOULD BE BASED ON THE PRIMARY CLINICAL RECORDS. [facility] [employer] [facility]. provides no warranty or guarantee of the accuracy or completeness of information in this document.
== END 2024-02-28 09:21 | disposition home or self-care (01) ==
LOC: US 09:20
PROVIDERS: PCP Nurse Practitioner Family
DX: N28.89 Other specified disorders of kidney and ureter (principal)
CPT/HCPCS: 76770

== ENCOUNTER 2024-11-11 09:00 | Outpatient (OUT) | payer MEDICARE, SELFPAY | END 2024-11-11 09:01 | disposition home or self-care (01) | LOC: HEMC 10:02 | PROVIDERS: PCP Nurse Practitioner Family; Visit Provider Internal Medicine Hematology & Oncology | DX: D72.829 Elevated white blood cell count, unspecified (principal) | CPT/HCPCS: 36415; 83615; 85652; 86140 ==